=== PATIENT | female | born 1960 | race Hispanic/Latino ===

== ENCOUNTER 2017-11-23 12:25 | Inpatient (IN) | payer OTHER ==
[2017-11-23] MEDS ORDERED: ARTIFICIAL TEARS OPHTH OINT OU PRN (12:36)
[2017-11-23] MEDS ORDERED: VASELINE LIP THERAPY TP PRN (12:36)
[2017-11-23] MEDS ORDERED: NACL 0.9% 1000 ML 1,000 ML IV ONE (12:39)
--- NOTE | 2017-11-23 12:39 | Emergency Department Report ---
HPI - General Time Seen by Provider: 11/23/17 12:30 - HPI HPI: 56-year-old female presents to the emergency department via EMS from home in a cardiac arrest. Last known time normal was around 6 AM but the patient was seen by her roommate prior to presentation unresponsive. EMS got to see her and found her to be cold, pulseless and in asystole. They were unable to intubate her but eventually put a Combitube in. They had difficulty getting an IV established until just prior to presentation and at that time she got 1 dose of epinephrine. Unknown past medical history. The patient presents still pulseless and unresponsive with emesis filling the Combitube. ED Review of Systems ROS: Stated complaint: CARDIAC ARREST Other details as noted in HPI Comment: Unobtainable due to pts medical conditions Physical Exam - Physical Exam Physical Exam: GENERAL: Patient is ill-appearing and unresponsive. HENT: Normocephalic. Atraumatic. Patient has moist mucous membranes. There is a Combitube in place with emesis coming up the tube. EYES: Pupils are fixed and dilated. NECK: Supple. Trachea appears midline. CHEST/LUNGS: There are no spontaneous respirations. HEART/CARDIOVASCULAR: There are no spontaneous heart sounds. ABDOMEN: Abdomen is soft. Obese habitus. SKIN: Skin is cool but dry. NEURO: Unresponsive. Does not withdraw to painful stimuli. Does not follow any commands. MUSCULOSKELETAL: There is no obvious deformity. There is no evidence of acute injury. No palpable femoral or radial pulses. - ABG Interpretation Ph: 7.035 PCO2: 99 PO2: 343 Bicarbonate: 26 Interpretation: respiratory acidosis - Intubation Time Out Performed: No Sedative: none Laryngoscope: other (glydescope) Size: 4 ET Tube Size: 7.5 Tube Secured Depth (cm): 23 Tube Secured Location: lips Tube Placement Confirmation: visualized tube passing t, equal breath sounds bilat, confirmation by capnometr Patient Tolerated Procedure: well Intubation Complications: none ED Medical Decision Making - Lab Data Result diagrams: 11/23/17 12:44 11/23/17 12:44 - EKG Data -: EKG Interpreted by Me EKG shows normal: sinus rhythm, axis, intervals (prolonged QT and QTC intervals) , QRS complexes (right bundle-branch block), ST-T waves Rate: normal - EKG Data When compared to previous EKG there are: previous EKG unavailable Interpretation: other (sinus rhythm, right bundle branch block, prolonged QT and QTC intervals) - Radiology Data Radiology results: report reviewed, image reviewed interpreted by me: Chest x-ray does not show any acute process. There are no pleural effusions, obvious pneumonia and there is no pneumothorax.. ET tube appears in an appropriate position above the barbara. CT HEAD WITHOUT CONTRAST: HISTORY: Unresponsive, cardiac arrest. TECHNIQUE: Sequential 2.5mm CT images. COMPARISON: none. FINDINGS: Cerebral Parenchyma: Within normal limits. Cerebellum: Within normal limits. Brainstem: Within normal limits. Ventricles: Normal. Sella: Normal. Extra-axial spaces: Normal. Basal Cisterns: Normal. Intracranial Hemorrhage: None. Midline Shift: None. Calvarium: Normal. Sinuses: There is fluid throughout all paranasal sinuses which may represent sinusitis or retained secretions. A left nasal tube and endotracheal tube are partially imaged. Mastoid Air Cells: Normal. Visualized Orbits: Normal. IMPRESSION: Cranial CT scan within normal limits. No signs of anoxic injury at this time. An MRI can be obtained if further evaluation is needed. Transcribed By: TTR Dictated By: SOLA CHAVEZ JR, MD Electronically Authenticated By: SOLA CHAVEZ JR, MD Signed Date/Time: 11/23/17 1342 - Medical Decision Making Patient came in as a cardiac arrest. She came in with a Combitube and having received one dose of epinephrine. Patient came in and she was given another dose of epinephrine and one of sodium bicarbonate while we continued ACLS protocol under my supervision. During the first rhythm and pulse check, the patient appeared to have a organized sinus rhythm and was felt to have palpable carotid and radial pulses. At this point the Combitube was replaced with an endotracheal tube. Patient was given some IV fluid resuscitation. Labs were drawn and sent. She has a lactic acidosis of about 16, elevated liver enzymes and an ABG that shows respiratory acidosis. Chest x-ray did not show any acute process. CT of the head has not yet shown any signs of anoxic injury but it may be too early and otherwise did not show any bleed, shift or any acute process. The patient has not required any sedation while on the mechanical ventilation. The patient's brother showed up and was updated about the patient' s presentation and ED course and condition. He says that the patient has a past medical history of COPD but is not oxygen dependent and that she does have some history of alcohol abuse. Patient will be admitted to the ICU and has been accepted for admission by the hospitalist, Dr. Duque. - Differential Diagnosis cardiac arrest, dysrhythmia, aspiration with respiratory failure, overdose Critical Care Time: Yes Critical care time in (mins) excluding proc time.: 45 Critical care attestation.: If time is entered above; I have spent that time in minutes in the direct care of this critically ill patient, excluding procedure time. Critical care time was spent on this patient and doing her initial evaluation, multiple re- evaluations, supervision of ACLS protocol, ordering and interpretation of labs and imaging, discussion with the patient's brother, discussion with the hospitalist. This does not include the time spent doing the intubation procedure. Critical Care Time: 45 minutes ED Disposition Clinical Impression: Cardiac arrest, Elevated lactic acid level, Transaminitis Respiratory failure Qualifiers: Chronicity: acute Respiratory failure complication: unspecified whether with hypoxia or hypercapnia Qualified Code(s): J96.00 - Acute respiratory failure, unspecified whether with hypoxia or hypercapnia Disposition: DC-09 OP ADMIT IP TO THIS HOSP Is pt being admited?: Yes Condition: Critical Referrals: PRIMARY CARE, [Primary Care Provider] - 3-5 Days Time of Disposition: 15:36
[2017-11-23 12:58] LABS: Mean Corpuscular HGB Conc 29 % (30-34); Mean Corpuscular Hemoglobin 33 pg (28-32); Platelet Count 279 K/mm3 (140-440); Red Blood Count 4.12 M/mm3 (3.65-5.03); Red Cell Distribution Width 18.5 % (13.2-15.2)
[2017-11-23] MEDS ORDERED: NACL 0.9% 500 ML IV SCH (13:00)
[2017-11-23 13:10] LABS: INR 1.15 (0.87-1.13)
[2017-11-23 13:11] LABS: Partial Thromboplastin Time 33.9 Sec. (24.2-36.6)
[2017-11-23 13:15] LABS: Hematocrit 46.1 % (30.3-42.9); Hemoglobin 13.4 gm/dl (10.1-14.3); Mean Corpuscular Volume 112 fl (79-97)
[2017-11-23 13:28] LABS: Alanine Aminotransferase 262 units/L (7-56); Albumin 2.9 g/dL (3.9-5); BUN/Creatinine Ratio 15; Blood Urea Nitrogen 19 mg/dL (7-17); Calcium 8.8 mg/dL (8.4-10.2); Hemolysis Index 22
--- NOTE | 2017-11-23 13:44 | XRay Report ---
AP CHEST: HISTORY: Endotracheal tube placement An endotracheal tube terminates 5 cm superior to the barbara. A nasogastric tube is followed to the stomach. Cardiac defibrillator pads are in place. The lungs are clear. Heart and mediastinal structures are within normal limits. No acute process is noted. IMPRESSION: Unremarkable AP chest. Adequate placement of lines and tubes.
[2017-11-23 13:47] LABS: Band Neutrophils # (Manual) 0.4 K/mm3; Basophils % (Manual) 0 % (0.0-1.8); Eosinophils % (Manual) 0 % (0.0-4.3); Total Cells Counted 100
[2017-11-23 13:48] LABS: Anisocytosis 1+; Macrocytosis 1+; Platelet Estimate Consistent w Auto
[2017-11-23 14:01] LABS: Bacteria,Urine 1+ /HPF (Negative); Bilirubin,Urine NEG (Negative); Blood,Urine NEG (Negative); Color,Urine Yellow (Yellow); Hyaline Casts,Urine 11 /LPF; Mucus,Urine 2+ /HPF
[2017-11-23 14:11] LABS: Amphetamine Screen,Urine PRESUMPTIVE NEGATIVE; Cannabinoid Screen,Urine PRESUMPTIVE NEGATIVE; Cocaine Screen,Urine PRESUMPTIVE NEGATIVE; Methadone Screen,Urine PRESUMPTIVE NEGATIVE
[2017-11-23 14:35] LABS: Benzodiazepines Screen,Urine PRESUMPTIVE POSITIVE; Opiate Screen,Urine PRESUMPTIVE POSITIVE
--- NOTE | 2017-11-23 14:48 | Cat Scan Report ---
CT HEAD WITHOUT CONTRAST: HISTORY: Unresponsive, cardiac arrest. TECHNIQUE: Sequential 2.5mm CT images. COMPARISON: none. FINDINGS: Cerebral Parenchyma: Within normal limits. Cerebellum: Within normal limits. Brainstem: Within normal limits. Ventricles: Normal. Sella: Normal. Extra-axial spaces: Normal. Basal Cisterns: Normal. Intracranial Hemorrhage: None. Midline Shift: None. Calvarium: Normal. Sinuses: There is fluid throughout all paranasal sinuses which may represent sinusitis or retained secretions. A left nasal tube and endotracheal tube are partially imaged. Mastoid Air Cells: Normal. Visualized Orbits: Normal. IMPRESSION: Cranial CT scan within normal limits. No signs of anoxic injury at this time. An MRI can be obtained if further evaluation is needed.
--- NOTE | 2017-11-23 15:23 | History and Physical Report ---
History of Present Illness Date of examination: 11/23/17 Medications and Allergies Allergies Allergy/AdvReac Type Severity Reaction Status Date / Time No Known Allergies Allergy Unverified 11/23/17 13:20 Active Meds: Active Medications Heparin Sodium (Porcine) (Heparin) 5,000 unit SUB-Q Q8HR BERTO Hydrophilic Ointment (Vaseline Lip Therapy) 1 applic TP Q2HR PRN PRN Reason: Dry Lips Sodium Chloride (Nacl 0.9% 1000 Ml) 1,000 mls @ 250 mls/hr IV ONCE ONE Stop: 11/23/17 16:38 Last Admin: 11/23/17 13:21 Dose: 250 mls/hr Multi-Ingred Cream/Lotion/Oil/Oint (Artificial Tears Ophth Oint) 1 applic OU Q4HR PRN PRN Reason: Dry Eye(s) Sodium Chloride (Nacl 0.9% 500 Ml) 1 ml IV DIRECT BERTO Exam - Constitutional Vitals: Temp Pulse Resp BP Pulse Ox 91.0 F L 62 30 H 110/68 81 L 11/23/17 13:08 11/23/17 13:45 11/23/17 13:45 11/23/17 13:45 11/23/17 13:39 Results - Labs CBC & Chem 7: 11/23/17 12:44 11/23/17 12:44 Labs: Laboratory Last Values WBC 13.0 K/mm3 (4.5-11.0) H 11/23/17 12:44 RBC 4.12 M/mm3 (3.65-5.03) 11/23/17 12:44 Hgb 13.4 gm/dl (10.1-14.3) 11/23/17 12:44 Hct 46.1 % (30.3-42.9) H 11/23/17 12:44 MCV 112 fl (79-97) H 11/23/17 12:44 MCH 33 pg (28-32) H 11/23/17 12:44 MCHC 29 % (30-34) L 11/23/17 12:44 RDW 18.5 % (13.2-15.2) H 11/23/17 12:44 Plt Count 279 K/mm3 (140-440) 11/23/17 12:44 Add Manual Diff Complete 11/23/17 12:44 Total Counted 100 11/23/17 12:44 Seg Neuts % (Manual) 71.0 % (40.0-70.0) H 11/23/17 12:44 Band Neutrophils % 3.0 % 11/23/17 12:44 Lymphocytes % (Manual) 18.0 % (13.4-35.0) 11/23/17 12:44 Reactive Lymphs % (Man) 0 % 11/23/17 12:44 Monocytes % (Manual) 8.0 % (0.0-7.3) H 11/23/17 12:44 Eosinophils % (Manual) 0 % (0.0-4.3) 11/23/17 12:44 Basophils % (Manual) 0 % (0.0-1.8) 11/23/17 12:44 Metamyelocytes % 0 % 11/23/17 12:44 Myelocytes % 0 % 11/23/17 12:44 Promyelocytes % 0 % 11/23/17 12:44 Blast Cells % 0 % 11/23/17 12:44 Nucleated RBC % 6.0 % (0.0-0.9) H 11/23/17 12:44 Seg Neutrophils # Man 9.2 K/mm3 (1.8-7.7) H 11/23/17 12:44 Band Neutrophils # 0.4 K/mm3 11/23/17 12:44 Lymphocytes # (Manual) 2.3 K/mm3 (1.2-5.4) 11/23/17 12:44 Abs React Lymphs (Man) 0.0 K/mm3 11/23/17 12:44 Monocytes # (Manual) 1.0 K/mm3 (0.0-0.8) H 11/23/17 12:44 Eosinophils # (Manual) 0.0 K/mm3 (0.0-0.4) 11/23/17 12:44 Basophils # (Manual) 0.0 K/mm3 (0.0-0.1) 11/23/17 12:44 Metamyelocytes # 0.0 K/mm3 11/23/17 12:44 Myelocytes # 0.0 K/mm3 11/23/17 12:44 Promyelocytes # 0.0 K/mm3 11/23/17 12:44 Blast Cells # 0.0 K/mm3 11/23/17 12:44 WBC Morphology Not Reportable 11/23/17 12:44 Hypersegmented Neuts Not Reportable 11/23/17 12:44 Hyposegmented Neuts Not Reportable 11/23/17 12:44 Hypogranular Neuts Not Reportable 11/23/17 12:44 Smudge Cells Not Reportable 11/23/17 12:44 Toxic Granulation Not Reportable 11/23/17 12:44 Toxic Vacuolation Not Reportable 11/23/17 12:44 Dohle Bodies Not Reportable 11/23/17 12:44 Pelger-Huet Anomaly Not Reportable 11/23/17 12:44 Erika Rods Not Reportable 11/23/17 12:44 Platelet Estimate Consistent w auto 11/23/17 12:44 Clumped Platelets Not Reportable 11/23/17 12:44 Plt Clumps, EDTA Not Reportable 11/23/17 12:44 Large Platelets Not Reportable 11/23/17 12:44 Giant Platelets Not Reportable 11/23/17 12:44 Platelet Satelliting Not Reportable 11/23/17 12:44 Plt Morphology Comment Not Reportable 11/23/17 12:44 RBC Morphology Not Reportable 11/23/17 12:44 Dimorphic RBCs Not Reportable 11/23/17 12:44 Polychromasia Rare 11/23/17 12:44 Hypochromasia Not Reportable 11/23/17 12:44 Poikilocytosis Not Reportable 11/23/17 12:44 Anisocytosis 1+ 11/23/17 12:44 Microcytosis Not Reportable 11/23/17 12:44 Macrocytosis 1+ 11/23/17 12:44 Spherocytes Not Reportable 11/23/17 12:44 Pappenheimer Bodies Not Reportable 11/23/17 12:44 Sickle Cells Not Reportable 11/23/17 12:44 Target Cells Not Reportable 11/23/17 12:44 Tear Drop Cells Not Reportable 11/23/17 12:44 Ovalocytes Not Reportable 11/23/17 12:44 Helmet Cells Not Reportable 11/23/17 12:44 [place] Bodies Not Reportable 11/23/17 12:44 [place] Rings Not Reportable 11/23/17 12:44 [place] Cells Not Reportable 11/23/17 12:44 Bite Cells Not Reportable 11/23/17 12:44 Crenated Cell Not Reportable 11/23/17 12:44 Elliptocytes Not Reportable 11/23/17 12:44 Acanthocytes (Spur) Not Reportable 11/23/17 12:44 Rouleaux Not Reportable 11/23/17 12:44 Hemoglobin C Crystals Not Reportable 11/23/17 12:44 Schistocytes Not Reportable 11/23/17 12:44 Malaria parasites Not Reportable 11/23/17 12:44 Brett Bodies Not Reportable 11/23/17 12:44 Hem Pathologist Commnt No 11/23/17 12:44 PT 15.3 Sec. (12.2-14.9) H 11/23/17 12:44 INR 1.15 (0.87-1.13) H 11/23/17 12:44 APTT 33.9 Sec. (24.2-36.6) 11/23/17 12:44 POC ABG pH 7.035 (7.35-7.45) L 11/23/17 13:23 POC ABG pCO2 99.1 (35-45) H 11/23/17 13:23 POC ABG pO2 343 (80-105) H 11/23/17 13:23 POC ABG HCO3 26.5 11/23/17 13:23 POC ABG Total CO2 29 11/23/17 13:23 POC ABG O2 Sat 100 11/23/17 13:23 POC ABG Base Excess -4 11/23/17 13:23 FiO2 100 % 11/23/17 13:23 Sodium 143 mmol/L (137-145) 11/23/17 12:44 Potassium 5.4 mmol/L (3.6-5.0) H 11/23/17 12:44 Chloride 85.2 mmol/L (98-107) L 11/23/17 12:44 Carbon Dioxide 26 mmol/L (22-30) 11/23/17 12:44 Anion Gap 37 mmol/L 11/23/17 12:44 BUN 19 mg/dL (7-17) H 11/23/17 12:44 Creatinine 1.3 mg/dL (0.7-1.2) H 11/23/17 12:44 Estimated GFR 42 ml/min 11/23/17 12:44 BUN/Creatinine Ratio 15 % 11/23/17 12:44 Glucose 175 mg/dL (65-100) H 11/23/17 12:44 Lactic Acid 16.10 mmol/L (0.7-2.0) H* 11/23/17 12:44 Calcium 8.8 mg/dL (8.4-10.2) 11/23/17 12:44 Total Bilirubin 0.40 mg/dL (0.1-1.2) 11/23/17 12:44 AST 310 units/L (5-40) H 11/23/17 12:44 ALT 262 units/L (7-56) H 11/23/17 12:44 Alkaline Phosphatase 78 units/L (35-129) 11/23/17 12:44 Troponin T < 0.010 ng/mL (0.00-0.029) 11/23/17 12:44 Total Protein 5.7 g/dL (6.3-8.2) L 11/23/17 12:44 Albumin 2.9 g/dL (3.9-5) L 11/23/17 12:44 Albumin/Globulin Ratio 1.0 % 11/23/17 12:44 Urine Color Yellow (Yellow) 11/23/17 13:39 Urine Turbidity Clear (Clear) 11/23/17 13:39 Urine pH 5.0 (5.0-7.0) 11/23/17 13:39 Ur Specific [place] 1.020 (1.003-1.030) 11/23/17 13:39 Urine Protein 30 mg/dl mg/dL (Negative) 11/23/17 13:39 Urine Glucose (UA) Neg mg/dL (Negative) 11/23/17 13:39 Urine Ketones Neg mg/dL (Negative) 11/23/17 13:39 Urine Blood Neg (Negative) 11/23/17 13:39 Urine Nitrite Neg (Negative) 11/23/17 13:39 Urine Bilirubin Neg (Negative) 11/23/17 13:39 Urine Urobilinogen 2.0 mg/dL (<2.0) 11/23/17 13:39 Ur Leukocyte Esterase Neg (Negative) 11/23/17 13:39 Urine WBC (Auto) 5.0 /HPF (0.0-6.0) 11/23/17 13:39 Urine RBC (Auto) 1.0 /HPF (0.0-6.0) 11/23/17 13:39 U Epithel Cells (Auto) 1.0 /HPF (0-13.0) 11/23/17 13:39 Urine Bacteria (Auto) 1+ /HPF (Negative) 11/23/17 13:39 Hyaline Casts 11 /LPF 11/23/17 13:39 Urine Mucus 2+ /HPF 11/23/17 13:39 Urine Opiates Screen Presumptive positive 11/23/17 13:39 Urine Methadone Screen Presumptive negative 11/23/17 13:39 Ur Barbiturates Screen Presumptive negative 11/23/17 13:39 Ur Phencyclidine Scrn Presumptive negative 11/23/17 13:39 Ur Amphetamines Screen Presumptive negative 11/23/17 13:39 U Benzodiazepines Scrn Presumptive positive 11/23/17 13:39 Urine Cocaine Screen Presumptive negative 11/23/17 13:39 U Marijuana (THC) Screen Presumptive negative 11/23/17 13:39 Drugs of Abuse Note Disclamer 11/23/17 13:39
[2017-11-23] MEDS ORDERED: MORPHINE IV PRN (15:24)
[2017-11-23] MEDS ORDERED: ZOFRAN IV PRN (15:24)
[2017-11-23] MEDS ORDERED: DULCOLAX PR PRN (15:24)
[2017-11-23] MEDS ORDERED: DILAUDID IV PRN (15:24)
[2017-11-23] MEDS ORDERED: ALUM-MAG HYDROX-SIMETH 200-200-20MG/5ML PO PRN (15:24)
[2017-11-23] MEDS ORDERED: MILK OF MAGNESIA PO PRN (15:24)
[2017-11-23] MEDS ORDERED: VANCOMYCIN 1,250 MG in NACL 0.9% 250ML 250 ML IV ONE (16:00)
[2017-11-23] MEDS ORDERED: VANCOMYCIN PHARMACY TO DOSE IV SCH (16:00)
[2017-11-23] MEDS ORDERED: ZOSYN/NS 4.5GM/100ML 4.5 GM/100 ML VIAL IV SCH (16:00)
[2017-11-23] MEDS: DUONEB *Not for PRN Use IH SCH ×2 (16:30→20:48)
[2017-11-23] MEDS: PEPCID IV SCH ×2 (16:49→22:05)
[2017-11-23] MEDS ORDERED: NACL 0.9% 1000 ML 1,000 ML ONE ×2 (16:56→22:49)
[2017-11-23] MEDS: ZOSYN/NS 4.5GM/100ML 4.5 GM/100 ML VIAL IV SCH (17:46)
--- NOTE | 2017-11-23 19:25 | Event Note ---
Date: 11/23/17 See dictated H/P in reports Anoxic Encephalopathy Acute respiratory failure Severe COPD Smokes 1.5 packs a day for 30 years HTN T2DM History obtatined from brother at bedside
[2017-11-23] MEDS ORDERED: CALCIUM GLUCONATE 2,000 MG in NACL 0.9% 100 ML IV ONE (19:26)
[2017-11-23] MEDS ORDERED: DUONEB *Not for PRN Use IH (19:52)
--- NOTE | 2017-11-23 20:28 | History and Physical Report ---
CHIEF COMPLAINT: Unresponsive since morning. HISTORY OF PRESENT ILLNESS: A 56-year-old female with history of severe COPD, hypertension, type 2 diabetes, who lives as a paying guest with another family, was last seen around 6 a.m. doing laundry. Then, after a couple of hours, the patient was found lying on the floor and unconscious and unresponsive. The homeowner initiated CPR, and called EMS. Called 911. When the EMS arrived, the patient was found to be cold, pulseless, and in asystole. They were unable to intubate her, but eventually put her Combitube in. They established an IV and gave one dose of epinephrine. The patient was still pulseless and unresponsive with emesis filling the Combitube. The patient was revived in the ER. The patient was unresponsive, but able to get a pulse and blood pressure. Blood pressure around 110/70. Totally unresponsive. No fever, no chills. History was obtained from the brother who was at bedside. The patient apparently smokes 1-1/2 packs a day for the last 30 years. Lives alone, but lives as a paying guest with another family. Independent, single. History of chronic obstructive pulmonary disease, hypertension, and type 2 diabetes. PAST MEDICAL HISTORY: As mentioned, hypertension, type 2 diabetes, and severe COPD. The patient uses inhalers at home. PAST SURGICAL HISTORY: Unknown. SOCIAL HISTORY: Smokes about 1-1/2 packs a day. No alcohol, no recreational drugs. FAMILY HISTORY: Significant for severe coronary artery disease and hypertension. REVIEW OF SYSTEMS: Could not be done. Apparently, the patient was unresponsive at the scene. As per the brother who talked with her 4 days ago. No flu symptoms. No fever, no chills. Apparently, doing reasonably well in her usual state of health. REVIEW OF SYSTEMS: Could not be done. CURRENT MEDICATIONS: Inhalers. Brother unable to name the inhalers. PHYSICAL EXAMINATION: GENERAL: Middle-aged female, unresponsive twitching at mouth. VITAL SIGNS: Blood pressure is 110/68, temperature is 91, pulse rate is 102, sats were 81%, went up to 96. Initial blood pressure 206/87, but came down to 116/72. HEENT: Pupils sluggish not dilated, reactive sluggishly. ET tube in place. Twitching of the mouth present. NECK: Supple, no lymphadenopathy, no thyromegaly. No jugular venous distention. LUNGS: Scattered rhonchi bilaterally. CARDIOVASCULAR: S1, S2 heard. No gallop, no murmur, no rub. Apical impulse in the left fifth intercostal space and midclavicular line. ABDOMEN: Soft and benign. No hepatosplenomegaly. No guarding, no rigidity. Hernial orifices are normal. EXTREMITIES: Good pedal pulses. No pedal edema. CENTRAL NERVOUS SYSTEM: Intubated. Not sedated, but totally unresponsive. The patient on vent. LABORATORY DATA: Labs significant for white count of 13,000, hemoglobin of 13, and hematocrit of 46, platelet count is 279,000. Protime is 15.3, PTT is 33.9. Lactic acid is 16. Sodium is 143, potassium is 5.4, BUN and creatinine is 19 and 1.3, total protein is 5.7, albumin is 2.9. Urine is negative for infection. Drug screen was positive for benzos and opiates. CT scan was negative for any acute infarction. Chest x-ray showed no infiltrates. Adequate placement of lines and tubes. On the CT scan, there is fluid in paranasal sinuses, which may represent sinusitis. EMERGENCY ROOM COURSE: The patient came in cardiac arrest. ACLS protocol was initiated. Combitube was replaced with endotracheal tube. IV fluid resuscitation done. The patient was revived. EKG, sinus tachycardia. Also, ABG showed a pH of 7.035, pCO2 of 99, pO2 of 343, bicarbonate of 26.5, total CO2 of 29, O2 sats 100%, FiO2 100. ASSESSMENT AND PLAN: 1. Acute respiratory failure with hypoxia and hypercapnia. The patient may have been hypoxic and hypercapnic, which has resulted in loss of consciousness. The patient has been pulseless at the time of arrival. May have suffered anoxic encephalopathy. We will treat the acute respiratory failure with DuoNeb, intravenous Solu-Medrol, intravenous Zosyn, and vancomycin for possible aspiration also. 2. Aspiration pneumonia, high possibility. Because the patient was vomiting through the Combitube. Intravenous Zosyn and intravenous vancomycin. Infectious Disease consult also requested. Sputum cultures to be done. 3. Anoxic encephalopathy, possibility. Because of her prolonged asystole and pulselessness when the EMS arrived. We will reevaluate with MRI and brain flow studies. 4. Hyperkalemia. The patient initiated on calcium gluconate should be sufficient to bring down the potassium from 5.4 to normal. 5. Elevated lactic acid, probably secondary to anoxia and sepsis. The patient already on intravenous antibiotics, Zosyn, and vancomycin. The patient is critically ill. 6. Deep venous thrombosis prophylaxis with Lovenox 40 subcutaneous daily. CRITICAL CARE STATEMENT: The high probability of a clinically significant sudden or life-threatening deterioration of the pulmonary, cardiac, and renal systems required my full and direct attention, intervention, and personal management. The aggregate critical care time was 45 minutes. The time is an addition to time spent performing reported procedures, but include the followin. Data review and interpretation. 2. The patient assessment and monitoring of vital signs. 3. Documentation. 4. Medication orders and management. JOB# [id number] GRISEL/SUSANA
[2017-11-23] MEDS: KEPPRA 750 MG in D5W 100 ML IV SCH (21:54)
[2017-11-23] MEDS: HEPARIN SUB-Q SCH (22:04)
[2017-11-23] MEDS ORDERED: ADRENALIN ONE (22:37)
[2017-11-23] MEDS ORDERED: SODIUM BICARBONATE IV ONE (22:37)
[2017-11-24] MEDS: D5NS 1,000 ML IV SCH ×3 (02:24→13:33)
[2017-11-24] MEDS: ZOSYN/NS 4.5GM/100ML 4.5 GM/100 ML VIAL IV SCH ×3 (02:44→17:43)
[2017-11-24] MEDS: DUONEB *Not for PRN Use IH SCH ×4 (03:00→19:20)
[2017-11-24] MEDS: ATIVAN IV PRN ×3 (03:55→11:30)
[2017-11-24] MEDS: TYLENOL PR PRN ×2 (04:45→15:40)
[2017-11-24 04:52] LABS: Basophils % (Auto) 0.2 % (0.0-1.8); Hematocrit 48.9 % (30.3-42.9); Hemoglobin 15.7 gm/dl (10.1-14.3); Lymphocytes # (Auto) 0.9 K/mm3 (1.2-5.4); Lymphocytes % (Auto) 5.2 % (13.4-35.0); Mean Corpuscular HGB Conc 32 % (30-34); Mean Corpuscular Hemoglobin 32 pg (28-32); Mean Corpuscular Volume 101 fl (79-97); Monocytes # (Auto) 0.9 K/mm3 (0.0-0.8); Monocytes % (Auto) 5.5 % (0.0-7.3); Platelet Count 257 K/mm3 (140-440); Red Blood Count 4.86 M/mm3 (3.65-5.03); Red Cell Distribution Width 16.5 % (13.2-15.2)
[2017-11-24 05:06] LABS: Albumin 2.8 g/dL (3.9-5); Calcium 7.7 mg/dL (8.4-10.2)
[2017-11-24] MEDS: HEPARIN SUB-Q SCH ×3 (06:32→22:35)
--- NOTE | 2017-11-24 08:14 | XRay Report ---
FINAL REPORT EXAM: XR CHEST 1V AP HISTORY: Follow-up respiratory failure. TECHNIQUE: A single frontal portable radiograph of the chest was obtained. No prior studies are available for comparison. FINDINGS: The cardiac silhouette and mediastinum are within normal limits. An endotracheal tube is present with its tip approximately 7 cm above the barbara. A nasogastric tube traverses the thorax into the stomach, though its tip is not included on this exam. There is mild prominence of the pulmonary vasculature and interstitial markings, in keeping with mild pulmonary edema. There are mild patchy infiltrates at the left lung base. There is no pleural effusion or pneumothorax. No significant osseous abnormalities are identified. IMPRESSION: Mild pulmonary edema, with mild patchy infiltrates at the left lung base. Pneumonia is not excluded.
[2017-11-24] MEDS ORDERED: SODIUM BICARBONATE FEEDTUBE PRN (10:15)
[2017-11-24] MEDS ORDERED: SIMPLE SYRUP FEEDTUBE PRN ×2 (10:15)
[2017-11-24] MEDS ORDERED: PANCREAZE DR 10,500 UNIT FEEDTUBE PRN (10:15)
[2017-11-24] MEDS: PEPCID IV SCH ×2 (10:52→22:36)
[2017-11-24] MEDS: KEPPRA 750 MG in D5W 100 ML IV SCH ×2 (11:15→22:10)
--- NOTE | 2017-11-24 11:34 | Progress Note ---
History Interval history: S/p cardiopulmonary arrest. Etiology likely secondary to respiratory arrest. Pt. with probable anoxic encephalopathy as well. Sepsis. Pt. meets criteria with tachycardia, leukocytosis, elevated lactate and prob dx of ? aspiration pneumonia. Cont. IV abx, f/u cx results. Lactate 16! on admission Anoxic encephalopathy. Neuro consult. Check EEG. Acute hypercapneic resp failure. Pulm consultation pending. Cont. vent per Pulm. ARF. Etiology prob sec to TAMARA from sepsis/ATN. Renal consult Elevated LFTs. Etiology prob secondary to ischemic hepatitis from sepsis/ATN. Check hepatitis panel. Consider GI consult Poor prognosis The high probability of a clinically significant, sudden or life threatening deterioration of the [cardiac, pulmonary, neuro and GI] system(s) required my full and direct attention, intervention and personal management. The aggregate critical care time was [34] minutes. This time is in addition to time spent performing reported procedures but includes the following: [x] Data Review and interpretation [x] Patient assessment and monitoring of vital signs [x] Documentation [x] Medication orders and management Hospitalist Physical - Constitutional Vitals: Temp Pulse Resp BP Pulse Ox 103 F H 95 H 21 101/55 92 11/24/17 08:00 11/24/17 09:15 11/24/17 09:15 11/24/17 09:15 11/24/17 09:15 Results - Labs CBC & Chem 7: 11/24/17 04:03 11/24/17 04:03 Labs: Laboratory Last Values WBC 16.8 K/mm3 (4.5-11.0) H 11/24/17 04:03 RBC 4.86 M/mm3 (3.65-5.03) 11/24/17 04:03 Hgb 15.7 gm/dl (10.1-14.3) H 11/24/17 04:03 Hct 48.9 % (30.3-42.9) H 11/24/17 04:03 MCV 101 fl (79-97) H 11/24/17 04:03 MCH 32 pg (28-32) 11/24/17 04:03 MCHC 32 % (30-34) 11/24/17 04:03 RDW 16.5 % (13.2-15.2) H 11/24/17 04:03 Plt Count 257 K/mm3 (140-440) 11/24/17 04:03 Lymph % (Auto) 5.2 % (13.4-35.0) L 11/24/17 04:03 [place] % (Auto) 5.5 % (0.0-7.3) 11/24/17 04:03 Eos % (Auto) 0.0 % (0.0-4.3) 11/24/17 04:03 Baso % (Auto) 0.2 % (0.0-1.8) 11/24/17 04:03 Lymph # 0.9 K/mm3 (1.2-5.4) L 11/24/17 04:03 [place] # 0.9 K/mm3 (0.0-0.8) H 11/24/17 04:03 Eos # 0.0 K/mm3 (0.0-0.4) 11/24/17 04:03 Baso # 0.0 K/mm3 (0.0-0.1) 11/24/17 04:03 Add Manual Diff Complete 11/23/17 12:44 Total Counted 100 11/23/17 12:44 Seg Neutrophils % 89.1 % (40.0-70.0) H 11/24/17 04:03 Seg Neuts % (Manual) 71.0 % (40.0-70.0) H 11/23/17 12:44 Band Neutrophils % 3.0 % 11/23/17 12:44 Lymphocytes % (Manual) 18.0 % (13.4-35.0) 11/23/17 12:44 Reactive Lymphs % (Man) 0 % 11/23/17 12:44 Monocytes % (Manual) 8.0 % (0.0-7.3) H 11/23/17 12:44 Eosinophils % (Manual) 0 % (0.0-4.3) 11/23/17 12:44 Basophils % (Manual) 0 % (0.0-1.8) 11/23/17 12:44 Metamyelocytes % 0 % 11/23/17 12:44 Myelocytes % 0 % 11/23/17 12:44 Promyelocytes % 0 % 11/23/17 12:44 Blast Cells % 0 % 11/23/17 12:44 Nucleated RBC % 6.0 % (0.0-0.9) H 11/23/17 12:44 Seg Neutrophils # 14.9 K/mm3 (1.8-7.7) H 11/24/17 04:03 Seg Neutrophils # Man 9.2 K/mm3 (1.8-7.7) H 11/23/17 12:44 Band Neutrophils # 0.4 K/mm3 11/23/17 12:44 Lymphocytes # (Manual) 2.3 K/mm3 (1.2-5.4) 11/23/17 12:44 Abs React Lymphs (Man) 0.0 K/mm3 11/23/17 12:44 Monocytes # (Manual) 1.0 K/mm3 (0.0-0.8) H 11/23/17 12:44 Eosinophils # (Manual) 0.0 K/mm3 (0.0-0.4) 11/23/17 12:44 Basophils # (Manual) 0.0 K/mm3 (0.0-0.1) 11/23/17 12:44 Metamyelocytes # 0.0 K/mm3 11/23/17 12:44 Myelocytes # 0.0 K/mm3 11/23/17 12:44 Promyelocytes # 0.0 K/mm3 11/23/17 12:44 Blast Cells # 0.0 K/mm3 11/23/17 12:44 WBC Morphology Not Reportable 11/23/17 12:44 Hypersegmented Neuts Not Reportable 11/23/17 12:44 Hyposegmented Neuts Not Reportable 11/23/17 12:44 Hypogranular Neuts Not Reportable 11/23/17 12:44 Smudge Cells Not Reportable 11/23/17 12:44 Toxic Granulation Not Reportable 11/23/17 12:44 Toxic Vacuolation Not Reportable 11/23/17 12:44 Dohle Bodies Not Reportable 11/23/17 12:44 Pelger-Huet Anomaly Not Reportable 11/23/17 12:44 Erika Rods Not Reportable 11/23/17 12:44 Platelet Estimate Consistent w auto 11/23/17 12:44 Clumped Platelets Not Reportable 11/23/17 12:44 Plt Clumps, EDTA Not Reportable 11/23/17 12:44 Large Platelets Not Reportable 11/23/17 12:44 Giant Platelets Not Reportable 11/23/17 12:44 Platelet Satelliting Not Reportable 11/23/17 12:44 Plt Morphology Comment Not Reportable 11/23/17 12:44 RBC Morphology Not Reportable 11/23/17 12:44 Dimorphic RBCs Not Reportable 11/23/17 12:44 Polychromasia Rare 11/23/17 12:44 Hypochromasia Not Reportable 11/23/17 12:44 Poikilocytosis Not Reportable 11/23/17 12:44 Anisocytosis 1+ 11/23/17 12:44 Microcytosis Not Reportable 11/23/17 12:44 Macrocytosis 1+ 11/23/17 12:44 Spherocytes Not Reportable 11/23/17 12:44 Pappenheimer Bodies Not Reportable 11/23/17 12:44 Sickle Cells Not Reportable 11/23/17 12:44 Target Cells Not Reportable 11/23/17 12:44 Tear Drop Cells Not Reportable 11/23/17 12:44 Ovalocytes Not Reportable 11/23/17 12:44 Helmet Cells Not Reportable 11/23/17 12:44 Mart-Onset Bodies Not Reportable 11/23/17 12:44 [place] Rings Not Reportable 11/23/17 12:44 [place] Cells Not Reportable 11/23/17 12:44 Bite Cells Not Reportable 11/23/17 12:44 Crenated Cell Not Reportable 11/23/17 12:44 Elliptocytes Not Reportable 11/23/17 12:44 Acanthocytes (Spur) Not Reportable 11/23/17 12:44 Rouleaux Not Reportable 11/23/17 12:44 Hemoglobin C Crystals Not Reportable 11/23/17 12:44 Schistocytes Not Reportable 11/23/17 12:44 Malaria parasites Not Reportable 11/23/17 12:44 Brett Bodies Not Reportable 11/23/17 12:44 Hem Pathologist Commnt No 11/23/17 12:44 PT 15.3 Sec. (12.2-14.9) H 11/23/17 12:44 INR 1.15 (0.87-1.13) H 11/23/17 12:44 APTT 33.9 Sec. (24.2-36.6) 11/23/17 12:44 POC ABG pH 7.469 (7.35-7.45) H 11/24/17 05:55 POC ABG pCO2 52.3 (35-45) H 11/24/17 05:55 POC ABG pO2 69 (80-105) L 11/24/17 05:55 POC ABG HCO3 38.0 11/24/17 05:55 POC ABG Total CO2 40 11/24/17 05:55 POC ABG O2 Sat 94 11/24/17 05:55 POC ABG Base Excess 14 11/24/17 05:55 FiO2 50 % 11/24/17 05:55 Sodium 144 mmol/L (137-145) 11/24/17 04:03 Potassium 4.3 mmol/L (3.6-5.0) D 11/24/17 04:03 Chloride 96.0 mmol/L (98-107) L 11/24/17 04:03 Carbon Dioxide 33 mmol/L (22-30) H D 11/24/17 04:03 Anion Gap 19 mmol/L 11/24/17 04:03 BUN 28 mg/dL (7-17) H 11/24/17 04:03 Creatinine 1.5 mg/dL (0.7-1.2) H 11/24/17 04:03 Estimated GFR 36 ml/min 11/24/17 04:03 BUN/Creatinine Ratio 19 % 11/24/17 04:03 Glucose 108 mg/dL (65-100) H 11/24/17 04:03 Lactic Acid 16.10 mmol/L (0.7-2.0) H* 11/23/17 12:44 Calcium 7.7 mg/dL (8.4-10.2) L 11/24/17 04:03 Total Bilirubin 0.50 mg/dL (0.1-1.2) 11/24/17 04:03 AST 1091 units/L (5-40) H 11/24/17 04:03 ALT 986 units/L (7-56) H 11/24/17 04:03 Alkaline Phosphatase 75 units/L (35-129) 11/24/17 04:03 Troponin T < 0.010 ng/mL (0.00-0.029) 11/23/17 12:44 Total Protein 5.0 g/dL (6.3-8.2) L 11/24/17 04:03 Albumin 2.8 g/dL (3.9-5) L 11/24/17 04:03 Albumin/Globulin Ratio 1.3 % 11/24/17 04:03 Urine Color Yellow (Yellow) 11/23/17 13:39 Urine Turbidity Clear (Clear) 11/23/17 13:39 Urine pH 5.0 (5.0-7.0) 11/23/17 13:39 Ur Specific [place] 1.020 (1.003-1.030) 11/23/17 13:39 Urine Protein 30 mg/dl mg/dL (Negative) 11/23/17 13:39 Urine Glucose (UA) Neg mg/dL (Negative) 11/23/17 13:39 Urine Ketones Neg mg/dL (Negative) 11/23/17 13:39 Urine Blood Neg (Negative) 11/23/17 13:39 Urine Nitrite Neg (Negative) 11/23/17 13:39 Urine Bilirubin Neg (Negative) 11/23/17 13:39 Urine Urobilinogen 2.0 mg/dL (<2.0) 11/23/17 13:39 Ur Leukocyte Esterase Neg (Negative) 11/23/17 13:39 Urine WBC (Auto) 5.0 /HPF (0.0-6.0) 11/23/17 13:39 Urine RBC (Auto) 1.0 /HPF (0.0-6.0) 11/23/17 13:39 U Epithel Cells (Auto) 1.0 /HPF (0-13.0) 11/23/17 13:39 Urine Bacteria (Auto) 1+ /HPF (Negative) 11/23/17 13:39 Hyaline Casts 11 /LPF 11/23/17 13:39 Urine Mucus 2+ /HPF 11/23/17 13:39 Salicylates < 0.3 mg/dL (2.8-20.0) L 11/23/17 15:54 Urine Opiates Screen Presumptive positive 11/23/17 13:39 Urine Methadone Screen Presumptive negative 11/23/17 13:39 Acetaminophen < 15.0 ug/mL (10.0-30.0) 11/23/17 15:54 Ur Barbiturates Screen Presumptive negative 11/23/17 13:39 Ur Phencyclidine Scrn Presumptive negative 02/07/18 13:39 Ur Amphetamines Screen Presumptive negative 11/23/17 13:39 U Benzodiazepines Scrn Presumptive positive 11/23/17 13:39 Urine Cocaine Screen Presumptive negative 11/23/17 13:39 U Marijuana (THC) Screen Presumptive negative 11/23/17 13:39 Drugs of Abuse Note Disclamer 11/23/17 13:39
--- NOTE | 2017-11-24 12:04 | Consultation ---
History of Present Illness Consult date: 11/24/17 Requesting physician: GURDEEP SOLIS Reason for consult: other (S/P Cardiac Arrest) History of present illness: PULMONARY/CCM CONSULT NOTE (Full dictation # [id number]) Please see dictated notes for full details Medications and Allergies Allergies Allergy/AdvReac Type Severity Reaction Status Date / Time No Known Allergies Allergy Unverified 11/23/17 13:20 Home Medications Medication Instructions Recorded Confirmed Last Taken Type Unobtainable 11/23/17 11/23/17 Unknown History Active Meds: Active Medications Acetaminophen (Tylenol) [address] Q6H PRN PRN Reason: Pain, Mild (1-3) Last Admin: 11/24/17 04:45 Dose: 650 mg Al Hydrox/Mg Hydrox/Simethicone (Alum-Mag Hydrox-Simeth [phone]/5ml) 30 ml PO Q4H PRN PRN Reason: Indigestion Albuterol/Ipratropium (Duoneb *Not For Prn Use*) 1 ampul IH Q6HRT [facility] Last Admin: 11/24/17 08:03 Dose: 1 ampul Lipase/Protease/Amylase (Pancreaze Dr 10,500 Unit) 1 each FEEDTUBE PRN PRN PRN Reason: For Clogged Feeding Tube Bisacodyl (Dulcolax) [address] QDAY PRN PRN Reason: constipation unrelieved by MOM Famotidine (Pepcid) 20 mg IV BID [facility] Last Admin: 11/24/17 10:52 Dose: 20 mg Heparin Sodium (Porcine) (Heparin) 5,000 unit SUB-Q Q8HR [facility] Last Admin: 11/24/17 06:32 Dose: Not Given Hydromorphone HCl (Dilaudid) 1 mg IV Q3H PRN PRN Reason: Pain , Severe (7-10) Last Admin: 11/24/17 02:23 Dose: 1 mg Hydrophilic Ointment (Vaseline Lip Therapy) 1 applic TP Q2HR PRN PRN Reason: Dry Lips Dextrose/Sodium Chloride (D5ns) 1,000 mls @ 100 mls/hr IV DIRECT [facility] Last Admin: 11/24/17 02:24 Dose: 100 mls/hr Piperacillin Sod/Tazobactam Sod (Zosyn/Ns 4.5gm/100ml) 4.5 gm in 100 mls @ 200 mls/hr IV Q8H [facility] PRN Reason: Protocol Last Admin: 11/24/17 10:52 Dose: 200 mls/hr Vancomycin HCl (Vancomycin/Ns 1 Gm/250 Ml) 1 gm in 250 mls @ 166.667 mls/hr IV Q24H [facility] Levetiracetam 750 mg/ Dextrose 107.5 mls @ 400 mls/hr IV Q12HR [facility] Last Admin: 11/23/17 21:54 Dose: 400 mls/hr Lorazepam (Ativan) 1 mg IV Q1H PRN PRN Reason: Seizures Last Admin: 11/24/17 06:31 Dose: 1 mg Magnesium Hydroxide (Milk Of Magnesia) 30 ml PO Q4H PRN PRN Reason: Constipation Morphine Sulfate (Morphine) 2 mg IV Q4H PRN PRN Reason: Pain, Moderate (4-6) Multi-Ingred Cream/Lotion/Oil/Oint (Artificial Tears Ophth Oint) 1 applic OU Q4HR PRN PRN Reason: Dry Eye(s) Ondansetron HCl (Zofran) 4 mg IV Q3H PRN PRN Reason: N/V unrelieved by Reglan Simple Syrup (Simple Syrup) 15 ml FEEDTUBE PRN PRN PRN Reason: Hypoglycemia Simple Syrup (Simple Syrup) 30 ml FEEDTUBE PRN PRN PRN Reason: Hypoglycemia Sodium Bicarbonate (Sodium Bicarbonate) 325 mg FEEDTUBE PRN PRN PRN Reason: For Clogged Feeding Tube Sodium Chloride (Nacl 0.9% 500 Ml) 1 ml IV DIRECT [facility] Vancomycin HCl (Vancomycin Pharmacy To Dose) 1 each IV PKCONSULT [facility] PRN Reason: Protocol Physical Examination Vital signs: Vital Signs Pulse Pulse Ox 100 H 95 11/23/17 12:25 11/23/17 12:25 Results - Laboratory Findings CBC and BMP: 11/24/17 04:03 11/24/17 04:03 ABG POC ABG pH 7.469 (7.35-7.45) H 11/24/17 05:55 POC ABG pCO2 52.3 (35-45) H 11/24/17 05:55 POC ABG pO2 69 (80-105) L 11/24/17 05:55 POC ABG HCO3 38.0 11/24/17 05:55 POC ABG Total CO2 40 11/24/17 05:55 POC ABG O2 Sat 94 11/24/17 05:55 PT/INR, D-dimer PT 15.3 Sec. (12.2-14.9) H 11/23/17 12:44 INR 1.15 (0.87-1.13) H 11/23/17 12:44 Abnormal lab findings: Abnormal Labs 11/23/17 11/23/17 11/23/17 12:44 12:44 12:44 WBC 13.0 H Hgb Hct 46.1 H MCV 112 H MCH 33 H MCHC 29 L RDW 18.5 H Lymph % (Auto) Lymph # [place] # Seg Neutrophils % Seg Neuts % (Manual) 71.0 H Monocytes % (Manual) 8.0 H Nucleated RBC % 6.0 H Seg Neutrophils # Seg Neutrophils # Man 9.2 H Monocytes # (Manual) 1.0 H PT 15.3 H INR 1.15 H POC ABG pH POC ABG pCO2 POC ABG pO2 Potassium 5.4 H Chloride 85.2 L Carbon Dioxide BUN 19 H Creatinine 1.3 H Glucose 175 H Lactic Acid Calcium AST 310 H ALT 262 H Total Protein 5.7 L Albumin 2.9 L Salicylates 11/23/17 11/23/17 11/23/17 12:44 13:23 15:54 WBC Hgb Hct MCV MCH MCHC RDW Lymph % (Auto) Lymph # [place] # Seg Neutrophils % Seg Neuts % (Manual) Monocytes % (Manual) Nucleated RBC % Seg Neutrophils # Seg Neutrophils # Man Monocytes # (Manual) PT INR POC ABG pH 7.035 L POC ABG pCO2 99.1 H POC ABG pO2 343 H Potassium Chloride Carbon Dioxide BUN Creatinine Glucose Lactic Acid 16.10 H* Calcium AST ALT Total Protein Albumin Salicylates < 0.3 L 11/23/17 11/24/17 11/24/17 16:42 04:03 04:03 WBC 16.8 H Hgb 15.7 H Hct 48.9 H MCV 101 H MCH MCHC RDW 16.5 H Lymph % (Auto) 5.2 L Lymph # 0.9 L [place] # 0.9 H Seg Neutrophils % 89.1 H Seg Neuts % (Manual) Monocytes % (Manual) Nucleated RBC % Seg Neutrophils # 14.9 H Seg Neutrophils # Man Monocytes # (Manual) PT INR POC ABG pH POC ABG pCO2 POC ABG pO2 55 L Potassium Chloride 96.0 L Carbon Dioxide 33 H D BUN 28 H Creatinine 1.5 H Glucose 108 H Lactic Acid Calcium 7.7 L AST 1091 H ALT 986 H Total Protein 5.0 L Albumin 2.8 L Salicylates 11/24/17 05:55 WBC Hgb Hct MCV MCH MCHC RDW Lymph % (Auto) Lymph # [place] # Seg Neutrophils % Seg Neuts % (Manual) Monocytes % (Manual) Nucleated RBC % Seg Neutrophils # Seg Neutrophils # Man Monocytes # (Manual) PT INR POC ABG pH 7.469 H POC ABG pCO2 52.3 H POC ABG pO2 69 L Potassium Chloride Carbon Dioxide BUN Creatinine Glucose Lactic Acid Calcium AST ALT Total Protein Albumin Salicylates
--- NOTE | 2017-11-24 13:32 | Consultation ---
History of Present Illness Consult date: 11/24/17 Requesting physician: HARVEY BERNAL Reason for Consult: unresponsive, twitching Chief complaint: unresponsive following cardiorespiratory arrest, twitching of face History of present illness: This 56-year-old right handed (per son) white female was admitted yesterday having last been normal 6 AM yesterday morning according to her roommate (per ER notes here). Her son states she may have been down for several hours before found again. EMS found her to be cold, pulseless and in asystole area they were unable to intubate her but eventually got accompanied to be in. They have difficulty getting an IV established until just prior to arriving at the ER and at that time she got 1 dose of epinephrine though was still pulseless and unresponsive at the ER with emesis filling the Combitube. Pupils were stated to be fixed and dilated with no withdrawal to pain. She was then intubated. She was given 1 dose of epinephrine and 1 of sodium bicarbonate during ACLS protocol. She had lactic acidosis of about 16, elevated liver enzymes and ABG showing respiratory acidosis. CT scan is read as normal but to me may be showing posterior effaced sulci. She was started on Keppra 750 mg IV every 12. She was noted to have some history of COPD and alcohol abuse. Her son has a bag of her medications from home including multiple inhalers (Combivent, Advair , Ventolin) as well as Mobic, Robitussin-DM generic syrup, and ipratropium dose apparently for nebulizer Past History Past Medical History: COPD Social history: single, smoking (both electronic cigarettes and some tobacco per her son is likely), alcohol abuse (unknown but has a history of this per her son), IV drug use (her son thinks this is correct in the distant past), other (occasional use of marijuana still her son thinks) Family history: hypertension (maternal side according to her son), other ( unknown if strokes or epilepsy) Medications and Allergies Allergies Allergy/AdvReac Type Severity Reaction Status Date / Time No Known Allergies Allergy Unverified 11/23/17 13:20 Home Medications Medication Instructions Recorded Confirmed Last Taken Type Unobtainable 11/23/17 11/23/17 Unknown History Active Meds: Active Medications Acetaminophen (Tylenol) 650 mg LA Q6H PRN PRN Reason: Pain, Mild (1-3) Last Admin: 11/24/17 04:45 Dose: 650 mg Al Hydrox/Mg Hydrox/Simethicone (Alum-Mag Hydrox-Simeth [phone]/5ml) 30 ml PO Q4H PRN PRN Reason: Indigestion Albuterol/Ipratropium (Duoneb *Not For Prn Use*) 1 ampul IH Q6HRT [facility] Last Admin: 11/24/17 08:03 Dose: 1 ampul Lipase/Protease/Amylase (Pancreaze Dr 10,500 Unit) 1 each FEEDTUBE PRN PRN PRN Reason: For Clogged Feeding Tube Bisacodyl (Dulcolax) 10 mg LA QDAY PRN PRN Reason: constipation unrelieved by MOM Famotidine (Pepcid) 20 mg IV BID [facility] Last Admin: 11/24/17 10:52 Dose: 20 mg Heparin Sodium (Porcine) (Heparin) 5,000 unit SUB-Q Q8HR [facility] Last Admin: 11/24/17 06:32 Dose: Not Given Hydromorphone HCl (Dilaudid) 1 mg IV Q3H PRN PRN Reason: Pain , Severe (7-10) Last Admin: 11/24/17 02:23 Dose: 1 mg Hydrophilic Ointment (Vaseline Lip Therapy) 1 applic TP Q2HR PRN PRN Reason: Dry Lips Dextrose/Sodium Chloride (D5ns) 1,000 mls @ 100 mls/hr IV DIRECT [facility] Last Admin: 11/24/17 13:07 Dose: 100 mls/hr Piperacillin Sod/Tazobactam Sod (Zosyn/Ns 4.5gm/100ml) 4.5 gm in 100 mls @ 200 mls/hr IV Q8H [facility] PRN Reason: Protocol Last Admin: 11/24/17 10:52 Dose: 200 mls/hr Vancomycin HCl (Vancomycin/Ns 1 Gm/250 Ml) 1 gm in 250 mls @ 166.667 mls/hr IV Q24H [facility] Levetiracetam 750 mg/ Dextrose 107.5 mls @ 400 mls/hr IV Q12HR [facility] Last Admin: 11/24/17 11:15 Dose: 400 mls/hr Lorazepam (Ativan) 1 mg IV Q1H PRN PRN Reason: Seizures Last Admin: 11/24/17 06:31 Dose: 1 mg Magnesium Hydroxide (Milk Of Magnesia) 30 ml PO Q4H PRN PRN Reason: Constipation Morphine Sulfate (Morphine) 2 mg IV Q4H PRN PRN Reason: Pain, Moderate (4-6) Multi-Ingred Cream/Lotion/Oil/Oint (Artificial Tears Ophth Oint) 1 applic OU Q4HR PRN PRN Reason: Dry Eye(s) Ondansetron HCl (Zofran) 4 mg IV Q3H PRN PRN Reason: N/V unrelieved by Reglan Simple Syrup (Simple Syrup) 15 ml FEEDTUBE PRN PRN PRN Reason: Hypoglycemia Simple Syrup (Simple Syrup) 30 ml FEEDTUBE PRN PRN PRN Reason: Hypoglycemia Sodium Bicarbonate (Sodium Bicarbonate) 325 mg FEEDTUBE PRN PRN PRN Reason: For Clogged Feeding Tube Sodium Chloride (Nacl 0.9% 500 Ml) 1 ml IV DIRECT [facility] Vancomycin HCl (Vancomycin Pharmacy To Dose) 1 each IV PKCONSULT [facility] PRN Reason: Protocol Review of Systems All systems: negative (unknown but her son says she takes BC powders he thinks for headaches) Physical Examination - Vital Signs Vital Signs: Vital Signs Pulse Pulse Ox 100 H 95 11/23/17 12:25 11/23/17 12:25 - Physical Exam Narrative exam: General Appearance: well developed well nourished (per BMI) late 50s white female, intubated orally with some myoclonic jerks in her chin on the left and truncal jerks intermittently as well. HEENT: atraumatic, normocephalic; no bruits, 2+ Aj without soreness or induration or enlargement, sclerae nonicteric. Oropharynx pink and moist. Neck: supple, no bruits. Heart: no murmur or extra sounds. Extremities: no clubbing, cyanosis or edema. No posterior tibial or dorsalis pedis pulses palpable on either side. Neurologic Exam: Mental Status: No eye-opening or other response to voice or pain or to commands. Cranial Nerves: No blink to visual threat, cannot see discs due to small pupils and possibly cataracts, PERRL 1 mm slight reaction, negative doll's eyes and lateral deviation of right (skew), no response to pinprick, no corneal reflexes , no grimace to pinprick or supraorbital pressure or TMJ pressure, Grey cannot be assessed, absent gags to oral suctioning and absent cough response to tracheal suctioning, shoulder shrug be done, tongue cannot be evaluated. Cerebellar: Cannot be assessed. Sensory: No response to pinprick or nailbed pressure Motor Exam Upper Extremities: No response to supraorbital pressure or TMJ pressure or chest or neck skin pinch or pinprick or nailbed pressure or palmar rub. No atrophy or fasciculations are noted visually. Motor Exam Lower Extremities: No response to supraorbital pressure or TMJ pressure or chest or neck skin pinch or pinprick or nailbed pressure or plantar rub. No atrophy or fasciculations are noted visually. Reflexes: Palmomental and snout are negative but jaw jerk attempt elicits clonus. Triceps, biceps and brachioradialis are 0 bilaterally. Zain's is negative bilaterally. Knee jerks and ankle jerks are 0 bilaterally without clonus. Toes are downgoing right and mute left to Babinski testing. Results - Laboratory Findings CBC and BMP: 11/24/17 04:03 11/24/17 04:03 Abnormal Lab Findings: Abnormal Labs 11/23/17 11/23/17 11/23/17 12:44 12:44 12:44 WBC 13.0 H Hgb Hct 46.1 H MCV 112 H MCH 33 H MCHC 29 L RDW 18.5 H Lymph % (Auto) Lymph # [place] # Seg Neutrophils % Seg Neuts % (Manual) 71.0 H Monocytes % (Manual) 8.0 H Nucleated RBC % 6.0 H Seg Neutrophils # Seg Neutrophils # Man 9.2 H Monocytes # (Manual) 1.0 H PT 15.3 H INR 1.15 H POC ABG pH POC ABG pCO2 POC ABG pO2 Potassium 5.4 H Chloride 85.2 L Carbon Dioxide BUN 19 H Creatinine 1.3 H Glucose 175 H Lactic Acid Calcium AST 310 H ALT 262 H Total Protein 5.7 L Albumin 2.9 L Salicylates 11/23/17 11/23/17 11/23/17 12:44 13:23 15:54 WBC Hgb Hct MCV MCH MCHC RDW Lymph % (Auto) Lymph # [place] # Seg Neutrophils % Seg Neuts % (Manual) Monocytes % (Manual) Nucleated RBC % Seg Neutrophils # Seg Neutrophils # Man Monocytes # (Manual) PT INR POC ABG pH 7.035 L POC ABG pCO2 99.1 H POC ABG pO2 343 H Potassium Chloride Carbon Dioxide BUN Creatinine Glucose Lactic Acid 16.10 H* Calcium AST ALT Total Protein Albumin Salicylates < 0.3 L 11/23/17 11/24/17 11/24/17 16:42 04:03 04:03 WBC 16.8 H Hgb 15.7 H Hct 48.9 H MCV 101 H MCH MCHC RDW 16.5 H Lymph % (Auto) 5.2 L Lymph # 0.9 L [place] # 0.9 H Seg Neutrophils % 89.1 H Seg Neuts % (Manual) Monocytes % (Manual) Nucleated RBC % Seg Neutrophils # 14.9 H Seg Neutrophils # Man Monocytes # (Manual) PT INR POC ABG pH POC ABG pCO2 POC ABG pO2 55 L Potassium Chloride 96.0 L Carbon Dioxide 33 H D BUN 28 H Creatinine 1.5 H Glucose 108 H Lactic Acid Calcium 7.7 L AST 1091 H ALT 986 H Total Protein 5.0 L Albumin 2.8 L Salicylates 11/24/17 05:55 WBC Hgb Hct MCV MCH MCHC RDW Lymph % (Auto) Lymph # [place] # Seg Neutrophils % Seg Neuts % (Manual) Monocytes % (Manual) Nucleated RBC % Seg Neutrophils # Seg Neutrophils # Man Monocytes # (Manual) PT INR POC ABG pH 7.469 H POC ABG pCO2 52.3 H POC ABG pO2 69 L Potassium Chloride Carbon Dioxide BUN Creatinine Glucose Lactic Acid Calcium AST ALT Total Protein Albumin Salicylates Assessment and Plan Impression: 1. Hypoxic ischemic encephalopathy 2. Myoclonic jerks Plan: 1. EEG. 2. I explained to her son that at least some of her motor cortex seems to be working since she is having myoclonus due to her hypoxic event. I explained this can be difficult to treat but that we are treating it with the Keppra. I told him most of her brainstem is not working but her pupils are reacting a little bit. I explained possibly doing ice water calorics later but no need to do that as long as her pupils are reacting since that shows her brainstem is at least partially working. 3. I will give an extra bolus of Keppra 500 mg IV one time. Based on creatinine clearance of 41, her maintenance dose is appropriate. 4. Sometimes myoclonus goes away as brain occurs. I explained we might do an MRI to look for swelling, depending on results of EEG. I discussed the likely need to decide about withdrawing support depending on her responses tomorrow. 35 minutes critical care time spent today. Thank you for an interesting consultation on this unfortunate mid 50s lady.
[2017-11-24] MEDS ORDERED: KEPPRA 500 MG in D5W 100 ML IV ONE (15:00)
[2017-11-24] MEDS: DIPRIVAN 10 MG/ML 1,000 MG/100 ML BOTTLE IV SCH (15:13)
[2017-11-24] MEDS ORDERED: VANCOMYCIN/NS 1 GM/250 ML 1 GM/250 ML BAG IV SCH (16:00)
[2017-11-24] MEDS: VANCOMYCIN/0.45 NS 1 GM/250 ML 1 GM/250 ML BAG IV SCH (17:43)
[2017-11-25] MEDS: ZOSYN/NS 4.5GM/100ML 4.5 GM/100 ML VIAL IV SCH ×3 (01:10→20:22)
[2017-11-25] MEDS: D5NS 1,000 ML IV SCH ×2 (01:11→12:53)
--- NOTE | 2017-11-25 01:14 | Consultation ---
CONSULTING PHYSICIAN: Dr. Duque. REASON FOR CONSULTATION: Acute hypoxemic respiratory failure, status post cardiac arrest. CHIEF COMPLAINT AND HISTORY OF PRESENT ILLNESS: The patient is a 56-year-old female with past medical history significant amongst other things for a history of alcohol abuse, who apparently was last seen around 6:00 a.m. on the day of presentation. She was seen by her roommate. Emergency medical services, when they were called a few hours later, found to have a cold pulseless and asystole. They were unable to intubate her. A combitube was placed. She was brought into the Emergency Room. In the ER, the patient was still pulseless, unresponsive with emesis feeling. Covering the combitube, resuscitative efforts were continued. They were able to get a pulse back. She was endotracheally intubated, required vasopressor support and was ultimately admitted to the Intensive Care Unit where I stopped by to see her. Of note, she also has a diagnosis of COPD, but not on home oxygen. When I stopped by to see her, she was lying in bed. She was having intermittent myoclonic type jerks, not following commands. Not on any sedation at that time. With regards to her tobacco use/abuse history, the records indicate that she does have a 30+ pack year tobacco smoking history. That really is as much of the history of presentation as I have. PAST MEDICAL HISTORY: Again, significant for a diagnosis of chronic obstructive lung disease. History of hypertension, history of type 2 diabetes. She is also obese, and a questionable history of alcohol abuse. PAST SURGICAL HISTORY: Unknown. MEDICATIONS: She was on at the time I stopped by to see her, according to the medication administration record included the following: DuoNeb treatments nebulized q. 6 hours, Pepcid 20 mg IV b.i.d., heparin 5000 units subQ q. 8 hours, Keppra 750 mg IV q. 12 hours, Ativan 1 mg IV q. 1 hours p.r.n. seizures, Zofran 4 mg IV q. 3 hours p.r.n. nausea and vomiting, Zosyn 4.5 grams IV q. 8 hours, vancomycin 1 gram IV daily. ALLERGIES: No known drug allergies. DIET: Obese lady, acute weight loss or gain history is unknown. FAMILY AND SOCIAL HISTORY: Lives in the community. She has at least about 5 sons, I am told. She does have a 30+ pack year tobacco smoking history. Also, history of alcohol abuse. Illicit drug use or abuse history is unknown. Family history otherwise noncontributory. REVIEW OF SYSTEMS: Unobtainable secondary to patient's medical and mental condition. Since she has been here, no gross hematochezia or melena, no gross hematuria. She has had intermittent myoclonic jerks. No overt seizure activity. Review of systems is otherwise unobtainable secondary to patient's medical and mental condition. PHYSICAL EXAMINATION: VITAL SIGNS: At presentation in the Emergency Room, she had a temperature of 91.0 degrees Fahrenheit. Pulse was 100 after ACLS. Respiratory rate was 20, which was the set rate on the ventilator. Blood pressure 206/87. Oxygen sats were 95%. Inspired oxygen concentration was not recorded. She has had a T-max essentially of 103 degrees Fahrenheit since. GENERAL: Elderly looking, actually looks older than her stated age, female. Normocephalic, atraumatic. ET tube in place, taped around 23 cm at the lip. Looks chronically ill, in mild distress. HEAD, EYES, EARS, NOSE AND THROAT: She is anicteric. She does have some conjunctival erythema bilaterally. Grossly, no palpable lymph nodes in the supraclavicular or submandibular lymph node chains. No goiter. No gross jugular venous distention. LUNGS: Auscultation of both lung hanson, bibasilar rales, no wheezing. Slightly diminished bilateral breath sounds. HEART: Heart sounds 1 and 2 are heard at the time of my evaluation, regular rate and rhythm. No rubs, no murmurs. ABDOMEN: Soft, full, bowel sounds are positive, did not appear tender. No palpable hepatosplenomegaly. EXTREMITIES: Without overt digital clubbing or cyanosis. Trace pedal edema. Dorsalis pedis pulses were palpable bilaterally. SKIN: Was of poor turgor, no rash. She had some erythema to the face. No obvious cellulitis. NEUROLOGIC: Pupils were equal, round, about 3 mm, reactive to light, sluggishly. Extraocular muscle movements could not be assessed. She did have some spontaneous movements, mostly in the form of myoclonic jerks to her extremities. LABORATORY DATA: From my review are as follows: Admission white cell count 13,000, hemoglobin 13.4, hematocrit 46.1, platelet count 279. No band forms reported. INR was 1.15. Arterial blood gas was 7.04 with a pCO2 of 99, pO2 of 343 and 100% FIO2. Ventilator settings were not recorded. She is currently on assist control, tidal volume 500, rate of 20, PEEP of 5. Serum sodium was 143, potassium 5.4, chloride 85, bicarb 26, BUN 19, creatinine 1.3, glucose was 175. Lactic acid level was 16.1, AST 310, ALT 262. Urinalysis was negative for nitrites and leukocyte esterase. Urine drug screen, presumptive positive for benzos and opiates and alcohol. Tylenol and aspirin levels were within expected limits. BUN today is 28 with a creatinine of 1.5. ABG is now 7.47 with a pCO2 of 52. MICROBIOLOGY STUDIES: Blood cultures, no growth to date. Tracheal aspirate, no growth to date. I have reviewed her radiographic studies. Chest x-rays were done and essentially chest x-ray shows endotracheal tube with the tip in the lower level of the clavicular heads, evidence of hyperinflation with flattening of both hemidiaphragms, some enlargement of the right main pulmonary artery trunk. Increased interstitial markings appear chronic and acute. No gross pneumothorax, no gross bony fractures that I can see. Her nasogastric tube is seen coursing down the mediastinum. A CT of the head and brain was also done. I have read the radiologist's report, and essentially, it did not show any obvious acute abnormalities and no signs of overt anoxic injury. ASSESSMENT: 1. Acute hypoxemic respiratory failure, on mechanical ventilatory support. 2. Status post cardiac arrest. 3. Likely aspiration pneumonia. 4. Acute encephalopathy with myoclonic jerks at this point, but with evidence of brainstem function. 5. Acute exacerbation of chronic obstructive pulmonary disease. 6. Tobacco use disorder. 7. Obesity. 8. Hypertension. 9. History of alcohol abuse. PLAN: We will continue full mechanical ventilator support in the short time. I have reduced the minute ventilation. We will reduce the rate to 16. We will repeat arterial blood gases p.r.n. and daily in the short term. Aspiration precautions will be maintained. Bronchodilators and pulmonary hygiene will be per the respiratory therapist. Mental status will likely be the limiting factor to extubation, and if family desires continued care, quick recommendation will be made for a tracheostomy plus or minus percutaneous endoscopic gastrostomy tube placement. Clinically, we will continue empiric antibiotics, deescalating based on results of clinical and microbiologic data. She is appropriately on GI and DVT prophylaxis. She was found down, the reason still unclear. One will need to evaluate for possible pulmonary emboli. I will first of all see where the neurologic diagnosis takes us. In the meantime, D-dimer level will be ordered as well as lower extremity Dopplers bilaterally. We will continue her chronic disease medications. We will put her on p.r.n. Ativan just in case there is a development of significant alcohol withdrawal. She has been seen by neurologist. Flu and pneumonia vaccinations will be addressed per protocol. Thank you very much for the consult Dr. Duque. We will follow along and make further recommendations as picture progresses/becomes clearer. She is critically ill on life-sustaining interventions including mechanical ventilatory support at high risk for further deterioration. I should mention including and I should mention vasopressors will be titrated to keep mean arterial pressures greater than or equal to about 65 mmHg. At this point, we spent about 35-40 minutes of critical care time without overlap excluding any procedural time that may be necessary. JOB# [id number] ALEJANDRA/SUSANA FELIX
[2017-11-25] MEDS: DUONEB *Not for PRN Use IH SCH ×5 (01:19→20:00)
[2017-11-25 04:01] LABS: Basophils # (Auto) 0.1 K/mm3 (0.0-0.1); Basophils % (Auto) 0.5 % (0.0-1.8); Eosinophils % (Auto) 0.1 % (0.0-4.3); Hematocrit 42.4 % (30.3-42.9); Hemoglobin 13.7 gm/dl (10.1-14.3); Lymphocytes # (Auto) 1.9 K/mm3 (1.2-5.4); Lymphocytes % (Auto) 11.6 % (13.4-35.0); Mean Corpuscular HGB Conc 32 % (30-34); Mean Corpuscular Hemoglobin 32 pg (28-32); Mean Corpuscular Volume 99 fl (79-97); Platelet Count 160 K/mm3 (140-440); Red Blood Count 4.27 M/mm3 (3.65-5.03)
[2017-11-25] MEDS: DIPRIVAN 10 MG/ML 1,000 MG/100 ML BOTTLE IV SCH ×2 (04:20→22:10)
--- NOTE | 2017-11-25 04:40 | XRay Report ---
FINAL REPORT EXAM: XR CHEST 1V AP HISTORY: follow up respiratory failure TECHNIQUE: AP portable view(s) of the chest obtained. PRIORS: 11/24/2017 FINDINGS: Endotracheal tube terminates approximately 5 cm above the barbara. An enteric tube courses below the diaphragm and off of the inferior field of view with distal side port below the location of the gastroesophageal junction. No mediastinal shift. Cardiac silhouette is not enlarged. No pneumothorax, effusion, or focal pulmonary opacity identified. No acute skeletal findings. IMPRESSION: Satisfactory appearance of patient's support apparatus without pneumothorax.
[2017-11-25] MEDS: TYLENOL PR PRN ×2 (09:03→16:42)
[2017-11-25] MEDS: PEPCID IV SCH ×2 (09:03→22:10)
[2017-11-25] MEDS: KEPPRA 750 MG in D5W 100 ML IV SCH (09:04)
--- NOTE | 2017-11-25 11:49 | Progress Note ---
History Interval history: S/p cardiopulmonary arrest. Etiology likely secondary to respiratory arrest. Pt. with probable anoxic encephalopathy as well. Sepsis. Pt. meets criteria with tachycardia, leukocytosis, elevated lactate and prob dx of ? aspiration pneumonia. Cont. IV abx, f/u cx results. Lactate 16! on admission. Anoxic encephalopathy. Neuro consult. EEGs hows sharp activity at times at T4 (right temporal) then slower complex and slowing right frontal and bitemporally in the 4-5 Hz range. MRI ordered per neurology. Acute hypercapneic resp failure. Pulm following. Cont. vent per Pulm. ARF. Etiology prob sec to TAMARA from sepsis/ATN. Renal consult Elevated LFTs. Etiology prob secondary to ischemic hepatitis from sepsis/ATN. Check hepatitis panel. Consider GI consult Poor prognosis The high probability of a clinically significant, sudden or life threatening deterioration of the [cardiac, pulmonary, neuro and GI] system(s) required my full and direct attention, intervention and personal management. The aggregate critical care time was [32] minutes. This time is in addition to time spent performing reported procedures but includes the following: [x] Data Review and interpretation [x] Patient assessment and monitoring of vital signs [x] Documentation [x] Medication orders and management Hospitalist Physical - Constitutional Vitals: Temp Pulse Resp BP Pulse Ox 103.1 F H 83 16 115/58 97 11/25/17 08:00 11/25/17 10:00 11/25/17 10:00 11/25/17 10:00 11/25/17 10:00 Results - Labs CBC & Chem 7: 11/25/17 03:02 11/25/17 03:02 Labs: Laboratory Last Values WBC 16.0 K/mm3 (4.5-11.0) H 11/25/17 03:02 RBC 4.27 M/mm3 (3.65-5.03) 11/25/17 03:02 Hgb 13.7 gm/dl (10.1-14.3) 11/25/17 03:02 Hct 42.4 % (30.3-42.9) D 11/25/17 03:02 MCV 99 fl (79-97) H 11/25/17 03:02 MCH 32 pg (28-32) 11/25/17 03:02 MCHC 32 % (30-34) 11/25/17 03:02 RDW 16.0 % (13.2-15.2) H 11/25/17 03:02 Plt Count 160 K/mm3 (140-440) 11/25/17 03:02 Lymph % (Auto) 11.6 % (13.4-35.0) L 11/25/17 03:02 Mcminn % (Auto) 6.0 % (0.0-7.3) 11/25/17 03:02 Eos % (Auto) 0.1 % (0.0-4.3) 11/25/17 03:02 Baso % (Auto) 0.5 % (0.0-1.8) 11/25/17 03:02 Lymph # 1.9 K/mm3 (1.2-5.4) 11/25/17 03:02 Mcminn # 1.0 K/mm3 (0.0-0.8) H 11/25/17 03:02 Eos # 0.0 K/mm3 (0.0-0.4) 11/25/17 03:02 Baso # 0.1 K/mm3 (0.0-0.1) 11/25/17 03:02 Add Manual Diff Complete 11/23/17 12:44 Total Counted 100 11/23/17 12:44 Seg Neutrophils % 81.8 % (40.0-70.0) H 11/25/17 03:02 Seg Neuts % (Manual) 71.0 % (40.0-70.0) H 11/23/17 12:44 Band Neutrophils % 3.0 % 11/23/17 12:44 Lymphocytes % (Manual) 18.0 % (13.4-35.0) 11/23/17 12:44 Reactive Lymphs % (Man) 0 % 11/23/17 12:44 Monocytes % (Manual) 8.0 % (0.0-7.3) H 11/23/17 12:44 Eosinophils % (Manual) 0 % (0.0-4.3) 11/23/17 12:44 Basophils % (Manual) 0 % (0.0-1.8) 11/23/17 12:44 Metamyelocytes % 0 % 11/23/17 12:44 Myelocytes % 0 % 11/23/17 12:44 Promyelocytes % 0 % 11/23/17 12:44 Blast Cells % 0 % 11/23/17 12:44 Nucleated RBC % 6.0 % (0.0-0.9) H 11/23/17 12:44 Seg Neutrophils # 13.1 K/mm3 (1.8-7.7) H 11/25/17 03:02 Seg Neutrophils # Man 9.2 K/mm3 (1.8-7.7) H 11/23/17 12:44 Band Neutrophils # 0.4 K/mm3 11/23/17 12:44 Lymphocytes # (Manual) 2.3 K/mm3 (1.2-5.4) 11/23/17 12:44 Abs React Lymphs (Man) 0.0 K/mm3 11/23/17 12:44 Monocytes # (Manual) 1.0 K/mm3 (0.0-0.8) H 11/23/17 12:44 Eosinophils # (Manual) 0.0 K/mm3 (0.0-0.4) 11/23/17 12:44 Basophils # (Manual) 0.0 K/mm3 (0.0-0.1) 11/23/17 12:44 Metamyelocytes # 0.0 K/mm3 11/23/17 12:44 Myelocytes # 0.0 K/mm3 11/23/17 12:44 Promyelocytes # 0.0 K/mm3 11/23/17 12:44 Blast Cells # 0.0 K/mm3 11/23/17 12:44 WBC Morphology Not Reportable 11/23/17 12:44 Hypersegmented Neuts Not Reportable 11/23/17 12:44 Hyposegmented Neuts Not Reportable 11/23/17 12:44 Hypogranular Neuts Not Reportable 11/23/17 12:44 Smudge Cells Not Reportable 11/23/17 12:44 Toxic Granulation Not Reportable 11/23/17 12:44 Toxic Vacuolation Not Reportable 11/23/17 12:44 Dohle Bodies Not Reportable 11/23/17 12:44 Pelger-Huet Anomaly Not Reportable 11/23/17 12:44 Erika Rods Not Reportable 11/23/17 12:44 Platelet Estimate Consistent w auto 11/23/17 12:44 Clumped Platelets Not Reportable 11/23/17 12:44 Plt Clumps, EDTA Not Reportable 11/23/17 12:44 Large Platelets Not Reportable 11/23/17 12:44 Giant Platelets Not Reportable 11/23/17 12:44 Platelet Satelliting Not Reportable 11/23/17 12:44 Plt Morphology Comment Not Reportable 11/23/17 12:44 RBC Morphology Not Reportable 11/23/17 12:44 Dimorphic RBCs Not Reportable 11/23/17 12:44 Polychromasia Rare 11/23/17 12:44 Hypochromasia Not Reportable 11/23/17 12:44 Poikilocytosis Not Reportable 11/23/17 12:44 Anisocytosis 1+ 11/23/17 12:44 Microcytosis Not Reportable 11/23/17 12:44 Macrocytosis 1+ 11/23/17 12:44 Spherocytes Not Reportable 11/23/17 12:44 Pappenheimer Bodies Not Reportable 11/23/17 12:44 Sickle Cells Not Reportable 11/23/17 12:44 Target Cells Not Reportable 11/23/17 12:44 Tear Drop Cells Not Reportable 11/23/17 12:44 Ovalocytes Not Reportable 11/23/17 12:44 Helmet Cells Not Reportable 11/23/17 12:44 Mart-Presquille Bodies Not Reportable 11/23/17 12:44 Basin Rings Not Reportable 11/23/17 12:44 Valentino Cells Not Reportable 11/23/17 12:44 Bite Cells Not Reportable 11/23/17 12:44 Crenated Cell Not Reportable 11/23/17 12:44 Elliptocytes Not Reportable 11/23/17 12:44 Acanthocytes (Spur) Not Reportable 11/23/17 12:44 Rouleaux Not Reportable 11/23/17 12:44 Hemoglobin C Crystals Not Reportable 11/23/17 12:44 Schistocytes Not Reportable 11/23/17 12:44 Malaria parasites Not Reportable 11/23/17 12:44 Brett Bodies Not Reportable 11/23/17 12:44 Hem Pathologist Commnt No 11/23/17 12:44 PT 15.3 Sec. (12.2-14.9) H 11/23/17 12:44 INR 1.15 (0.87-1.13) H 11/23/17 12:44 APTT 33.9 Sec. (24.2-36.6) 11/23/17 12:44 D-Dimer 1977.37 ng/mlDDU (0-234) H 11/24/17 14:44 POC ABG pH 7.494 (7.35-7.45) H 11/25/17 03:35 POC ABG pCO2 48.1 (35-45) H 11/25/17 03:35 POC ABG pO2 82 (80-105) 11/25/17 03:35 POC ABG HCO3 37.0 11/25/17 03:35 POC ABG Total CO2 38 11/25/17 03:35 POC ABG O2 Sat 97 11/25/17 03:35 POC ABG Base Excess 14 11/25/17 03:35 FiO2 55 % 11/25/17 03:35 Sodium 148 mmol/L (137-145) H 11/25/17 03:02 Potassium 3.9 mmol/L (3.6-5.0) 11/25/17 03:02 Chloride 101.0 mmol/L (98-107) 11/25/17 03:02 Carbon Dioxide 35 mmol/L (22-30) H 11/25/17 03:02 Anion Gap 16 mmol/L 11/25/17 03:02 BUN 30 mg/dL (7-17) H 11/25/17 03:02 Creatinine 1.9 mg/dL (0.7-1.2) H 11/25/17 03:02 Estimated GFR 27 ml/min 11/25/17 03:02 BUN/Creatinine Ratio 16 % 11/25/17 03:02 Glucose 106 mg/dL (65-100) H 11/25/17 03:02 POC Glucose 96 (70-105) 11/25/17 05:55 Lactic Acid 2.00 mmol/L (0.7-2.0) 11/25/17 10:25 Calcium 7.0 mg/dL (8.4-10.2) L 11/25/17 03:02 Total Bilirubin 0.50 mg/dL (0.1-1.2) 11/24/17 04:03 AST 1091 units/L (5-40) H 11/24/17 04:03 ALT 986 units/L (7-56) H 11/24/17 04:03 Alkaline Phosphatase 75 units/L (35-129) 11/24/17 04:03 Troponin T < 0.010 ng/mL (0.00-0.029) 11/23/17 12:44 C-Reactive Protein 9.20 mg/dL (0.00-1.30) H 11/24/17 13:29 Total Protein 5.0 g/dL (6.3-8.2) L 11/24/17 04:03 Albumin 2.8 g/dL (3.9-5) L 11/24/17 04:03 Albumin/Globulin Ratio 1.3 % 11/24/17 04:03 Urine Color Yellow (Yellow) 11/23/17 13:39 Urine Turbidity Clear (Clear) 11/23/17 13:39 Urine pH 5.0 (5.0-7.0) 11/23/17 13:39 Ur Specific Bonnie 1.020 (1.003-1.030) 11/23/17 13:39 Urine Protein 30 mg/dl mg/dL (Negative) 11/23/17 13:39 Urine Glucose (UA) Neg mg/dL (Negative) 11/23/17 13:39 Urine Ketones Neg mg/dL (Negative) 11/23/17 13:39 Urine Blood Neg (Negative) 11/23/17 13:39 Urine Nitrite Neg (Negative) 11/23/17 13:39 Urine Bilirubin Neg (Negative) 11/23/17 13:39 Urine Urobilinogen 2.0 mg/dL (<2.0) 11/23/17 13:39 Ur Leukocyte Esterase Neg (Negative) 11/23/17 13:39 Urine WBC (Auto) 5.0 /HPF (0.0-6.0) 11/23/17 13:39 Urine RBC (Auto) 1.0 /HPF (0.0-6.0) 11/23/17 13:39 U Epithel Cells (Auto) 1.0 /HPF (0-13.0) 11/23/17 13:39 Urine Bacteria (Auto) 1+ /HPF (Negative) 11/23/17 13:39 Hyaline Casts 11 /LPF 11/23/17 13:39 Urine Mucus 2+ /HPF 11/23/17 13:39 Salicylates < 0.3 mg/dL (2.8-20.0) L 11/23/17 15:54 Urine Opiates Screen Presumptive positive 11/23/17 13:39 Urine Methadone Screen Presumptive negative 11/23/17 13:39 Acetaminophen < 15.0 ug/mL (10.0-30.0) 11/23/17 15:54 Ur Barbiturates Screen Presumptive negative 11/23/17 13:39 Ur Phencyclidine Scrn Presumptive negative 11/23/17 13:39 Ur Amphetamines Screen Presumptive negative 11/23/17 13:39 U Benzodiazepines Scrn Presumptive positive 11/23/17 13:39 Urine Cocaine Screen Presumptive negative 11/23/17 13:39 U Marijuana (THC) Screen Presumptive negative 11/23/17 13:39 Drugs of Abuse Note Disclamer 11/23/17 13:39
--- NOTE | 2017-11-25 13:35 | Progress Note ---
Assessment and Plan Acute hypoxemic respiratory failure, on mechanical ventilatory support. Status post cardiac arrest. Likely aspiration pneumonia. Acute encephalopathy with myoclonic jerks at this point, but with evidence of brainstem function. Acute exacerbation of chronic obstructive pulmonary disease. Tobacco use disorder. Obesity. Hypertension. History of alcohol abuse - continue full MVS acutely - Encephalopathy w/up ongoing - begin benadryl and double dose PPI for angioedema type toungue swelling - continue aspiration precautions / address VAP bundle daily - continue bronchodilators and pulmonary hygiene per RT - continue to wean oxygen for espinoza > 90% - NGT to LIS for now - begin reglan - get KUB re: high residuals and reduced bowel sounds - continue GI & VTE prophylaxis - continue empiric AB's and follow C&S - continue other care per attending/ other consultants ....remains critically ill on MVS and at high risk for further deterioration including ..35' CCT Subjective Date of service: 11/25/17 Principal diagnosis: Acute Hypoxemic Resp Failure; S/P Cardiac Arrest; Acute Encephalopathy Interval history: Patient is seen today for: Acute Hypoxemic Resp Failure; S/P Cardiac Arrest; Acute Encephalopathy Seen and examined at bedside; 24hour events reviewed; nursing and respiratory care staff consulted; no adverse overnight events reported to me; reamins on MVS ; AMS is persistent; toungue swelling is more; high residuals and emesis X 1; no coffe grounds and no other gross bleeding Objective Vital Signs - 12hr 11/25/17 11/25/17 11/25/17 01:36 01:45 02:00 Temperature Pulse Rate 96 H 95 H Pulse Rate [ 96 H Anterior Bilateral Throughout] Pulse Rate [ Left Radial] Pulse Rate [ Right Radial] Respiratory 20 16 Rate Respiratory 13 Rate [Anterior Bilateral Throughout] Blood Pressure 108/54 111/53 O2 Sat by Pulse 100 100 Oximetry 11/25/17 11/25/17 11/25/17 02:15 02:30 02:45 Temperature Pulse Rate 97 H 96 H 97 H Pulse Rate [ Anterior Bilateral Throughout] Pulse Rate [ Left Radial] Pulse Rate [ Right Radial] Respiratory 15 13 14 Rate Respiratory Rate [Anterior Bilateral Throughout] Blood Pressure 112/53 117/57 106/56 O2 Sat by Pulse 99 100 100 Oximetry 11/25/17 11/25/17 11/25/17 03:00 03:15 03:21 Temperature Pulse Rate 96 H 96 H 96 H Pulse Rate [ Anterior Bilateral Throughout] Pulse Rate [ Left Radial] Pulse Rate [ Right Radial] Respiratory 18 18 Rate Respiratory Rate [Anterior Bilateral Throughout] Blood Pressure 107/58 113/53 113/53 O2 Sat by Pulse 100 99 99 Oximetry 11/25/17 11/25/17 11/25/17 03:30 03:45 04:00 Temperature Pulse Rate 95 H 96 H 93 H Pulse Rate [ Anterior Bilateral Throughout] Pulse Rate [ 88 Left Radial] Pulse Rate [ 88 Right Radial] Respiratory 17 21 18 Rate Respiratory Rate [Anterior Bilateral Throughout] Blood Pressure 109/59 103/56 103/56 O2 Sat by Pulse 100 97 97 Oximetry 11/25/17 11/25/17 11/25/17 04:15 04:30 04:45 Temperature Pulse Rate 92 H 89 90 Pulse Rate [ Anterior Bilateral Throughout] Pulse Rate [ Left Radial] Pulse Rate [ Right Radial] Respiratory 20 19 16 Rate Respiratory Rate [Anterior Bilateral Throughout] Blood Pressure 107/55 97/61 111/69 O2 Sat by Pulse 97 99 99 Oximetry 11/25/17 11/25/17 11/25/17 05:00 05:15 05:30 Temperature Pulse Rate 89 86 88 Pulse Rate [ Anterior Bilateral Throughout] Pulse Rate [ Left Radial] Pulse Rate [ Right Radial] Respiratory 18 18 17 Rate Respiratory Rate [Anterior Bilateral Throughout] Blood Pressure 102/63 117/61 129/65 O2 Sat by Pulse 100 98 99 Oximetry 11/25/17 11/25/17 11/25/17 05:45 06:00 06:15 Temperature Pulse Rate 87 85 87 Pulse Rate [ Anterior Bilateral Throughout] Pulse Rate [ Left Radial] Pulse Rate [ Right Radial] Respiratory 19 17 16 Rate Respiratory Rate [Anterior Bilateral Throughout] Blood Pressure 121/64 116/62 120/60 O2 Sat by Pulse 99 99 100 Oximetry 11/25/17 11/25/17 11/25/17 06:24 06:30 06:45 Temperature 99.7 F H Pulse Rate 86 82 Pulse Rate [ Anterior Bilateral Throughout] Pulse Rate [ Left Radial] Pulse Rate [ Right Radial] Respiratory 23 26 H Rate Respiratory Rate [Anterior Bilateral Throughout] Blood Pressure 117/63 115/61 O2 Sat by Pulse 99 99 Oximetry 11/25/17 11/25/17 11/25/17 07:00 07:15 07:30 Temperature Pulse Rate 84 83 84 Pulse Rate [ Anterior Bilateral Throughout] Pulse Rate [ Left Radial] Pulse Rate [ Right Radial] Respiratory 32 H 19 25 H Rate Respiratory Rate [Anterior Bilateral Throughout] Blood Pressure 113/63 102/60 116/59 O2 Sat by Pulse 99 98 99 Oximetry 11/25/17 11/25/17 11/25/17 07:36 07:40 07:45 Temperature Pulse Rate 83 Pulse Rate [ 84 Anterior Bilateral Throughout] Pulse Rate [ Left Radial] Pulse Rate [ Right Radial] Respiratory 19 14 Rate Respiratory 19 Rate [Anterior Bilateral Throughout] Blood Pressure 115/62 O2 Sat by Pulse 98 98 Oximetry 11/25/17 11/25/17 11/25/17 07:46 08:00 08:15 Temperature 103.1 F H Pulse Rate 82 81 Pulse Rate [ 83 Anterior Bilateral Throughout] Pulse Rate [ Left Radial] Pulse Rate [ Right Radial] Respiratory 14 15 Rate Respiratory 16 Rate [Anterior Bilateral Throughout] Blood Pressure 112/60 102/54 O2 Sat by Pulse 97 96 Oximetry 11/25/17 11/25/17 11/25/17 08:30 08:45 09:00 Temperature Pulse Rate 85 84 86 Pulse Rate [ Anterior Bilateral Throughout] Pulse Rate [ Left Radial] Pulse Rate [ Right Radial] Respiratory 15 15 15 Rate Respiratory Rate [Anterior Bilateral Throughout] Blood Pressure 116/59 115/58 123/61 O2 Sat by Pulse 95 96 96 Oximetry 11/25/17 11/25/17 11/25/17 09:15 09:30 09:45 Temperature Pulse Rate 85 85 86 Pulse Rate [ Anterior Bilateral Throughout] Pulse Rate [ Left Radial] Pulse Rate [ Right Radial] Respiratory 14 15 17 Rate Respiratory Rate [Anterior Bilateral Throughout] Blood Pressure 122/59 123/60 119/60 O2 Sat by Pulse 97 97 96 Oximetry 11/25/17 11/25/17 11/25/17 10:00 11:38 12:00 Temperature 102.7 F H Pulse Rate 83 84 Pulse Rate [ Anterior Bilateral Throughout] Pulse Rate [ Left Radial] Pulse Rate [ Right Radial] Respiratory 16 Rate Respiratory Rate [Anterior Bilateral Throughout] Blood Pressure 115/58 110/56 O2 Sat by Pulse 97 96 Oximetry 11/25/17 12:45 Temperature Pulse Rate Pulse Rate [ 90 Anterior Bilateral Throughout] Pulse Rate [ Left Radial] Pulse Rate [ Right Radial] Respiratory Rate Respiratory 21 Rate [Anterior Bilateral Throughout] Blood Pressure O2 Sat by Pulse Oximetry CBC and BMP: 11/26/17 03:26 11/26/17 03:26 ABG, PT/INR, D-dimer: ABG POC ABG pH 7.494 (7.35-7.45) H 11/25/17 03:35 POC ABG pCO2 48.1 (35-45) H 11/25/17 03:35 POC ABG pO2 82 (80-105) 11/25/17 03:35 POC ABG HCO3 37.0 11/25/17 03:35 POC ABG Total CO2 38 11/25/17 03:35 POC ABG O2 Sat 97 11/25/17 03:35 PT/INR, D-dimer PT 15.3 Sec. (12.2-14.9) H 11/23/17 12:44 INR 1.15 (0.87-1.13) H 11/23/17 12:44 D-Dimer 1977.37 ng/mlDDU (0-234) H 11/24/17 14:44 Abnormal lab findings: Abnormal Labs 11/23/17 11/23/17 11/23/17 12:44 12:44 12:44 WBC 13.0 H Hgb Hct 46.1 H MCV 112 H MCH 33 H MCHC 29 L RDW 18.5 H Lymph % (Auto) Lymph # [place] # Seg Neutrophils % Seg Neuts % (Manual) 71.0 H Monocytes % (Manual) 8.0 H Nucleated RBC % 6.0 H Seg Neutrophils # Seg Neutrophils # Man 9.2 H Monocytes # (Manual) 1.0 H PT 15.3 H INR 1.15 H D-Dimer POC ABG pH POC ABG pCO2 POC ABG pO2 Sodium Potassium 5.4 H Chloride 85.2 L Carbon Dioxide BUN 19 H Creatinine 1.3 H Glucose 175 H Lactic Acid Calcium AST 310 H ALT 262 H C-Reactive Protein Total Protein 5.7 L Albumin 2.9 L Salicylates 11/23/17 11/23/17 11/23/17 12:44 13:23 15:54 WBC Hgb Hct MCV MCH MCHC RDW Lymph % (Auto) Lymph # [place] # Seg Neutrophils % Seg Neuts % (Manual) Monocytes % (Manual) Nucleated RBC % Seg Neutrophils # Seg Neutrophils # Man Monocytes # (Manual) PT INR D-Dimer POC ABG pH 7.035 L POC ABG pCO2 99.1 H POC ABG pO2 343 H Sodium Potassium Chloride Carbon Dioxide BUN Creatinine Glucose Lactic Acid 16.10 H* Calcium AST ALT C-Reactive Protein Total Protein Albumin Salicylates < 0.3 L 11/23/17 11/24/17 11/24/17 16:42 04:03 04:03 WBC 16.8 H Hgb 15.7 H Hct 48.9 H MCV 101 H MCH MCHC RDW 16.5 H Lymph % (Auto) 5.2 L Lymph # 0.9 L [place] # 0.9 H Seg Neutrophils % 89.1 H Seg Neuts % (Manual) Monocytes % (Manual) Nucleated RBC % Seg Neutrophils # 14.9 H Seg Neutrophils # Man Monocytes # (Manual) PT INR D-Dimer POC ABG pH POC ABG pCO2 POC ABG pO2 55 L Sodium Potassium Chloride 96.0 L Carbon Dioxide 33 H D BUN 28 H Creatinine 1.5 H Glucose 108 H Lactic Acid Calcium 7.7 L AST 1091 H ALT 986 H C-Reactive Protein Total Protein 5.0 L Albumin 2.8 L Salicylates 11/24/17 11/24/17 11/24/17 05:55 13:29 13:29 WBC Hgb Hct MCV MCH MCHC RDW Lymph % (Auto) Lymph # [place] # Seg Neutrophils % Seg Neuts % (Manual) Monocytes % (Manual) Nucleated RBC % Seg Neutrophils # Seg Neutrophils # Man Monocytes # (Manual) PT INR D-Dimer POC ABG pH 7.469 H POC ABG pCO2 52.3 H POC ABG pO2 69 L Sodium Potassium Chloride Carbon Dioxide BUN Creatinine Glucose Lactic Acid 3.20 H* Calcium AST ALT C-Reactive Protein 9.20 H Total Protein Albumin Salicylates 11/24/17 11/24/17 11/25/17 14:44 20:55 01:55 WBC Hgb Hct MCV MCH MCHC RDW Lymph % (Auto) Lymph # [place] # Seg Neutrophils % Seg Neuts % (Manual) Monocytes % (Manual) Nucleated RBC % Seg Neutrophils # Seg Neutrophils # Man Monocytes # (Manual) PT INR D-Dimer 1977.37 H POC ABG pH 7.471 H POC ABG pCO2 56.2 H POC ABG pO2 Sodium Potassium Chloride Carbon Dioxide BUN Creatinine Glucose Lactic Acid 3.00 H* Calcium AST ALT C-Reactive Protein Total Protein Albumin Salicylates 11/25/17 11/25/17 11/25/17 03:02 03:02 03:02 WBC 16.0 H Hgb Hct MCV 99 H MCH MCHC RDW 16.0 H Lymph % (Auto) 11.6 L Lymph # [place] # 1.0 H Seg Neutrophils % 81.8 H Seg Neuts % (Manual) Monocytes % (Manual) Nucleated RBC % Seg Neutrophils # 13.1 H Seg Neutrophils # Man Monocytes # (Manual) PT INR D-Dimer POC ABG pH POC ABG pCO2 POC ABG pO2 Sodium 148 H Potassium Chloride Carbon Dioxide 35 H BUN 30 H Creatinine 1.9 H Glucose 106 H Lactic Acid 2.90 H* Calcium 7.0 L AST ALT C-Reactive Protein Total Protein Albumin Salicylates 11/25/17 11/25/17 03:35 07:15 WBC Hgb Hct MCV MCH MCHC RDW Lymph % (Auto) Lymph # [place] # Seg Neutrophils % Seg Neuts % (Manual) Monocytes % (Manual) Nucleated RBC % Seg Neutrophils # Seg Neutrophils # Man Monocytes # (Manual) PT INR D-Dimer POC ABG pH 7.494 H POC ABG pCO2 48.1 H POC ABG pO2 Sodium Potassium Chloride Carbon Dioxide BUN Creatinine Glucose Lactic Acid 2.30 H* Calcium AST ALT C-Reactive Protein Total Protein Albumin Salicylates
[2017-11-25] MEDS: REGLAN IV SCH ×2 (15:11→22:11)
[2017-11-25] MEDS: BENADRYL IV SCH ×2 (15:11→22:11)
[2017-11-25] MEDS: HEPARIN SUB-Q SCH ×2 (15:12→22:14)
[2017-11-25 15:36] LABS: Albumin 2.4 g/dL (3.9-5); Bilirubin,Direct 0.2 mg/dL (0-0.2)
--- NOTE | 2017-11-25 16:27 | XRay Report ---
FINAL REPORT EXAM: XR ABDOMEN 1V AP HISTORY: bowel obstruction TECHNIQUE: Supine abdomen PRIORS: None. FINDINGS: Moderate amount of stool and gas present within the colon. No evidence of colonic dilatation. There is a gas-filled loop of wall centrally most likely sigmoid colon. NG tube identified. Distal end overlying the fundus of the stomach. No signs of free air. No abnormal calcifications are identified. IMPRESSION: NG tube identified. Nonspecific bowel gas pattern no definitive evidence for obstruction.
[2017-11-25] MEDS: VANCOMYCIN/0.45 NS 1 GM/250 ML 1 GM/250 ML BAG IV SCH (16:43)
--- NOTE | 2017-11-25 18:06 | Progress Note ---
Assessment and Plan Impression: 1. Possible complex partial seizures with secondary generalization 2. Hypoxic ischemic encephalopathy Plan: 1. Will order repeat EEG to be done Tuesday for Dr. Montano to review. 2. If EEG consistent with brain , Dr. Montano may wish to order a brain blood flow study and/or apnea testing. 3. In the meantime, I am increasing her levetiracetam to 500 mg IV every 6 hours and ordering a baseline blood level today. 4. If truncal jerks are not responding to the increased dose (could be a brainstem phenomenon rather than seizures), would suggest adding oxcarbazepine initially 300 mg per NG every 6 hours titrating upwards to perhaps 400 mg every 6 hours. Would avoid Depacon or phenytoin due to possible elevation of liver functions which are already elevated. Levetiracetam can rarely elevate liver functions but today's levels are better than yesterday. 5. Discussed plans with her son Angel by telephone who also said ok to convey this to her brother Leonidas whom I located by phone. He returned to her room. I explained if the EEG shows probable brain in addition to additional studies, the family may need to discuss withdrawing support. 6. Will repeat CT noncontrast, since unable to do MRI. 35 minutes critical care time spent with this patient. Subjective Date of service: 11/25/17 Principal diagnosis: coma, possible seizures Interval history: Chief complaint: Coma, possible seizures History of Present Illness: This 56-year-old white female is seen in follow-up. Oriented to the nurse, chin jerking stopped but she still has truncal jerks that recurred after lowering her propofol. Still on levetiracetam 750 mg IV every 12 hours. Could not get MRI since unstable. Objective - Exam Narrative Exam: General Appearance: well developed well nourished late 50's white female, orally intubated, with notable scleral edema and truncal forward jerks with slight head turn to left with the jerks. The truncal jerks appear diaphragmatic , resembling hiccoughs but stronger. General Neurologic Exam: Mental Status: No eye-opening or other response to voice or pain or to commands. Cranial Nerves: No blink to visual threat, PERRL 1 mm slight reaction X 2 seen only with ophthalmoscope magnification, negative doll's eyes and ice water calorics bilaterally, no corneal reflexes, no grimace to supraorbital pressure, Grey cannot be assessed, absent gags to oral suctioning and absent cough response to tracheal suctioning, shoulder shrug cannot be done, tongue protruding at rest but no voluntary protrusion. Cerebellar: Cannot be assessed. Motor Exam Upper Extremities: No response to supraorbital pressure or chest or neck skin pinch or nailbed pressure or palmar rub. No atrophy or fasciculations are noted visually. Motor Exam Lower Extremities: No response to supraorbital pressure or chest or neck skin pinch or pinprick or nailbed pressure or plantar rub. No atrophy or fasciculations are noted visually. - Vital Sign Vital Signs - 12hr 11/25/17 11/25/17 11/25/17 06:00 06:15 06:24 Temperature 99.7 F H Pulse Rate 85 87 Pulse Rate [ Anterior Bilateral Throughout] Respiratory 17 16 Rate Respiratory Rate [Anterior Bilateral Throughout] Blood Pressure 116/62 120/60 O2 Sat by Pulse 99 100 Oximetry 11/25/17 11/25/17 11/25/17 06:30 06:45 07:00 Temperature Pulse Rate 86 82 84 Pulse Rate [ Anterior Bilateral Throughout] Respiratory 23 26 H 32 H Rate Respiratory Rate [Anterior Bilateral Throughout] Blood Pressure 117/63 115/61 113/63 O2 Sat by Pulse 99 99 99 Oximetry 11/25/17 11/25/17 11/25/17 07:15 07:30 07:36 Temperature Pulse Rate 83 84 Pulse Rate [ 84 Anterior Bilateral Throughout] Respiratory 19 25 H Rate Respiratory 19 Rate [Anterior Bilateral Throughout] Blood Pressure 102/60 116/59 O2 Sat by Pulse 98 99 Oximetry 11/25/17 11/25/17 11/25/17 07:40 07:45 07:46 Temperature Pulse Rate 83 Pulse Rate [ 83 Anterior Bilateral Throughout] Respiratory 19 14 Rate Respiratory 16 Rate [Anterior Bilateral Throughout] Blood Pressure 115/62 O2 Sat by Pulse 98 98 Oximetry 11/25/17 11/25/17 11/25/17 08:00 08:15 08:30 Temperature 103.1 F H Pulse Rate 82 81 85 Pulse Rate [ Anterior Bilateral Throughout] Respiratory 14 15 15 Rate Respiratory Rate [Anterior Bilateral Throughout] Blood Pressure 112/60 102/54 116/59 O2 Sat by Pulse 97 96 95 Oximetry 11/25/17 11/25/17 11/25/17 08:45 09:00 09:15 Temperature Pulse Rate 84 86 85 Pulse Rate [ Anterior Bilateral Throughout] Respiratory 15 15 14 Rate Respiratory Rate [Anterior Bilateral Throughout] Blood Pressure 115/58 123/61 122/59 O2 Sat by Pulse 96 96 97 Oximetry 11/25/17 11/25/17 11/25/17 09:30 09:45 10:00 Temperature Pulse Rate 85 86 83 Pulse Rate [ Anterior Bilateral Throughout] Respiratory 15 17 16 Rate Respiratory Rate [Anterior Bilateral Throughout] Blood Pressure 123/60 119/60 115/58 O2 Sat by Pulse 97 96 97 Oximetry 11/25/17 11/25/17 11/25/17 10:15 10:30 10:45 Temperature Pulse Rate 84 82 85 Pulse Rate [ Anterior Bilateral Throughout] Respiratory 17 19 17 Rate Respiratory Rate [Anterior Bilateral Throughout] Blood Pressure 119/58 120/59 120/60 O2 Sat by Pulse 95 95 95 Oximetry 11/25/17 11/25/17 11/25/17 11:00 11:15 11:30 Temperature Pulse Rate 83 83 82 Pulse Rate [ Anterior Bilateral Throughout] Respiratory 25 H 23 19 Rate Respiratory Rate [Anterior Bilateral Throughout] Blood Pressure 122/60 131/61 110/56 O2 Sat by Pulse 95 95 95 Oximetry 11/25/17 11/25/17 11/25/17 11:38 11:45 12:00 Temperature 102.7 F H Pulse Rate 84 87 88 Pulse Rate [ Anterior Bilateral Throughout] Respiratory 22 25 H Rate Respiratory Rate [Anterior Bilateral Throughout] Blood Pressure 110/56 119/61 124/60 O2 Sat by Pulse 96 95 95 Oximetry 11/25/17 11/25/17 11/25/17 12:15 12:30 12:45 Temperature Pulse Rate 90 90 90 Pulse Rate [ 90 Anterior Bilateral Throughout] Respiratory 25 H 22 24 Rate Respiratory 21 Rate [Anterior Bilateral Throughout] Blood Pressure 124/60 126/57 117/59 O2 Sat by Pulse 95 95 96 Oximetry 11/25/17 11/25/17 11/25/17 12:55 13:00 13:15 Temperature Pulse Rate 92 H 86 Pulse Rate [ 89 Anterior Bilateral Throughout] Respiratory 17 15 Rate Respiratory 20 Rate [Anterior Bilateral Throughout] Blood Pressure 128/56 120/57 O2 Sat by Pulse 93 94 Oximetry 11/25/17 11/25/17 11/25/17 13:30 13:45 14:00 Temperature Pulse Rate 87 88 88 Pulse Rate [ Anterior Bilateral Throughout] Respiratory 14 15 16 Rate Respiratory Rate [Anterior Bilateral Throughout] Blood Pressure 124/61 119/60 125/65 O2 Sat by Pulse 95 94 94 Oximetry 11/25/17 11/25/17 11/25/17 14:15 14:30 14:45 Temperature Pulse Rate 89 88 92 H Pulse Rate [ Anterior Bilateral Throughout] Respiratory 12 13 16 Rate Respiratory Rate [Anterior Bilateral Throughout] Blood Pressure 128/72 134/59 138/64 O2 Sat by Pulse 95 94 94 Oximetry 11/25/17 11/25/17 11/25/17 15:00 15:15 15:28 Temperature Pulse Rate 90 91 H 91 H Pulse Rate [ Anterior Bilateral Throughout] Respiratory 15 15 Rate Respiratory Rate [Anterior Bilateral Throughout] Blood Pressure 135/64 137/64 137/60 O2 Sat by Pulse 94 95 96 Oximetry 11/25/17 16:00 Temperature 102.4 F H Pulse Rate Pulse Rate [ Anterior Bilateral Throughout] Respiratory Rate Respiratory Rate [Anterior Bilateral Throughout] Blood Pressure O2 Sat by Pulse Oximetry - Laboratory Findings CBC and BMP: 11/25/17 03:02 11/25/17 03:02 Abnormal Lab Findings: Abnormal Labs 11/23/17 11/23/17 11/23/17 12:44 12:44 12:44 WBC 13.0 H Hgb Hct 46.1 H MCV 112 H MCH 33 H MCHC 29 L RDW 18.5 H Lymph % (Auto) Lymph # [place] # Seg Neutrophils % Seg Neuts % (Manual) 71.0 H Monocytes % (Manual) 8.0 H Nucleated RBC % 6.0 H Seg Neutrophils # Seg Neutrophils # Man 9.2 H Monocytes # (Manual) 1.0 H PT 15.3 H INR 1.15 H D-Dimer POC ABG pH POC ABG pCO2 POC ABG pO2 Sodium Potassium 5.4 H Chloride 85.2 L Carbon Dioxide BUN 19 H Creatinine 1.3 H Glucose 175 H Lactic Acid Calcium AST 310 H ALT 262 H C-Reactive Protein Total Protein 5.7 L Albumin 2.9 L Salicylates 11/23/17 11/23/17 11/23/17 12:44 13:23 15:54 WBC Hgb Hct MCV MCH MCHC RDW Lymph % (Auto) Lymph # [place] # Seg Neutrophils % Seg Neuts % (Manual) Monocytes % (Manual) Nucleated RBC % Seg Neutrophils # Seg Neutrophils # Man Monocytes # (Manual) PT INR D-Dimer POC ABG pH 7.035 L POC ABG pCO2 99.1 H POC ABG pO2 343 H Sodium Potassium Chloride Carbon Dioxide BUN Creatinine Glucose Lactic Acid 16.10 H* Calcium AST ALT C-Reactive Protein Total Protein Albumin Salicylates < 0.3 L 11/23/17 11/24/17 11/24/17 16:42 04:03 04:03 WBC 16.8 H Hgb 15.7 H Hct 48.9 H MCV 101 H MCH MCHC RDW 16.5 H Lymph % (Auto) 5.2 L Lymph # 0.9 L [place] # 0.9 H Seg Neutrophils % 89.1 H Seg Neuts % (Manual) Monocytes % (Manual) Nucleated RBC % Seg Neutrophils # 14.9 H Seg Neutrophils # Man Monocytes # (Manual) PT INR D-Dimer POC ABG pH POC ABG pCO2 POC ABG pO2 55 L Sodium Potassium Chloride 96.0 L Carbon Dioxide 33 H D BUN 28 H Creatinine 1.5 H Glucose 108 H Lactic Acid Calcium 7.7 L AST 1091 H ALT 986 H C-Reactive Protein Total Protein 5.0 L Albumin 2.8 L Salicylates 11/24/17 11/24/17 11/24/17 05:55 13:29 13:29 WBC Hgb Hct MCV MCH MCHC RDW Lymph % (Auto) Lymph # [place] # Seg Neutrophils % Seg Neuts % (Manual) Monocytes % (Manual) Nucleated RBC % Seg Neutrophils # Seg Neutrophils # Man Monocytes # (Manual) PT INR D-Dimer POC ABG pH 7.469 H POC ABG pCO2 52.3 H POC ABG pO2 69 L Sodium Potassium Chloride Carbon Dioxide BUN Creatinine Glucose Lactic Acid 3.20 H* Calcium AST ALT C-Reactive Protein 9.20 H Total Protein Albumin Salicylates 11/24/17 11/24/17 11/25/17 14:44 20:55 01:55 WBC Hgb Hct MCV MCH MCHC RDW Lymph % (Auto) Lymph # [place] # Seg Neutrophils % Seg Neuts % (Manual) Monocytes % (Manual) Nucleated RBC % Seg Neutrophils # Seg Neutrophils # Man Monocytes # (Manual) PT INR D-Dimer 1977.37 H POC ABG pH 7.471 H POC ABG pCO2 56.2 H POC ABG pO2 Sodium Potassium Chloride Carbon Dioxide BUN Creatinine Glucose Lactic Acid 3.00 H* Calcium AST ALT C-Reactive Protein Total Protein Albumin Salicylates 11/25/17 11/25/17 11/25/17 03:02 03:02 03:02 WBC 16.0 H Hgb Hct MCV 99 H MCH MCHC RDW 16.0 H Lymph % (Auto) 11.6 L Lymph # [place] # 1.0 H Seg Neutrophils % 81.8 H Seg Neuts % (Manual) Monocytes % (Manual) Nucleated RBC % Seg Neutrophils # 13.1 H Seg Neutrophils # Man Monocytes # (Manual) PT INR D-Dimer POC ABG pH POC ABG pCO2 POC ABG pO2 Sodium 148 H Potassium Chloride Carbon Dioxide 35 H BUN 30 H Creatinine 1.9 H Glucose 106 H Lactic Acid 2.90 H* Calcium 7.0 L AST ALT C-Reactive Protein Total Protein Albumin Salicylates 11/25/17 11/25/17 11/25/17 03:02 03:35 07:15 WBC Hgb Hct MCV MCH MCHC RDW Lymph % (Auto) Lymph # [place] # Seg Neutrophils % Seg Neuts % (Manual) Monocytes % (Manual) Nucleated RBC % Seg Neutrophils # Seg Neutrophils # Man Monocytes # (Manual) PT INR D-Dimer POC ABG pH 7.494 H POC ABG pCO2 48.1 H POC ABG pO2 Sodium Potassium Chloride Carbon Dioxide BUN Creatinine Glucose Lactic Acid 2.30 H* Calcium AST 300 H ALT 561 H C-Reactive Protein Total Protein 4.5 L Albumin 2.4 L Salicylates
[2017-11-25] MEDS: KEPPRA IV SCH (20:23)
[2017-11-25] MEDS: D5W IV SCH (20:23)
[2017-11-26] MEDS: ATIVAN IV PRN ×2 (00:32→05:08)
[2017-11-26] MEDS: D5NS 1,000 ML IV SCH ×3 (00:35→22:00)
[2017-11-26] MEDS: KEPPRA IV SCH ×5 (00:41→23:43)
[2017-11-26] MEDS: D5W IV SCH ×5 (00:41→23:43)
[2017-11-26] MEDS: DUONEB *Not for PRN Use IH SCH ×4 (01:50→20:29)
[2017-11-26] MEDS: ZOSYN/NS 4.5GM/100ML 4.5 GM/100 ML VIAL IV SCH ×3 (02:28→18:30)
[2017-11-26 04:29] LABS: Basophils # (Auto) 0.1 K/mm3 (0.0-0.1); Basophils % (Auto) 0.7 % (0.0-1.8); Eosinophils % (Auto) 0.3 % (0.0-4.3); Hematocrit 45.9 % (30.3-42.9); Hemoglobin 14.9 gm/dl (10.1-14.3); Lymphocytes # (Auto) 1.3 K/mm3 (1.2-5.4); Mean Corpuscular HGB Conc 33 % (30-34); Mean Corpuscular Hemoglobin 32 pg (28-32); Mean Corpuscular Volume 98 fl (79-97); Monocytes # (Auto) 0.8 K/mm3 (0.0-0.8); Monocytes % (Auto) 6.3 % (0.0-7.3); Platelet Count 137 K/mm3 (140-440); Red Blood Count 4.69 M/mm3 (3.65-5.03); Red Cell Distribution Width 16.3 % (13.2-15.2)
[2017-11-26 04:42] LABS: Calcium 7.5 mg/dL (8.4-10.2)
--- NOTE | 2017-11-26 05:39 | XRay Report ---
FINAL REPORT PROCEDURE: XR CHEST 1V AP TECHNIQUE: Chest radiograph anteroposterior view. CPT 41619 HISTORY: follow up respiratory failure COMPARISON: No prior studies are available for comparison. FINDINGS: Heart: Normal. Mediastinum/Vessels: Normal. Lungs/Pleural space: Lungs are clear per and expanded. There are no infiltrates. There are no effusions or pneumothoraces.. Bony thorax: No acute osseous abnormality. Life support devices: The endotracheal tube is in the mid trachea. The NG tube is in the stomach.. IMPRESSION: No acute cardiopulmonary abnormality. ET tube and NG tube are in proper position.
[2017-11-26] MEDS: REGLAN IV SCH ×2 (06:45→13:48)
[2017-11-26] MEDS: HEPARIN SUB-Q SCH ×4 (06:45→23:43)
[2017-11-26] MEDS: BENADRYL IV SCH ×2 (10:49→23:44)
[2017-11-26] MEDS: PEPCID IV SCH ×2 (10:49→23:44)
--- NOTE | 2017-11-26 11:48 | Progress Note ---
History Interval history: S/p cardiopulmonary arrest. Etiology likely secondary to respiratory arrest. Pt. with probable anoxic encephalopathy as well. Sepsis. Pt. meets criteria with tachycardia, leukocytosis, elevated lactate and prob dx of ? aspiration pneumonia. Cont. IV abx, f/u cx results. Lactate 16! on admission. Anoxic encephalopathy. Neuro following. Evaluate CT scan today to rule out cerebral edema. Possible complex partial seizures with secondary generalization. Consider oxcarbamazepine or Versed if truncal jerks continue Acute hypercapneic resp failure. Pulm following. Cont. vent per Pulm. ARF. Etiology prob sec to TAMARA from sepsis/ATN. Renal consult Elevated LFTs. Etiology prob secondary to ischemic hepatitis from sepsis/ATN. Check hepatitis panel. Consider GI consult Poor prognosis The high probability of a clinically significant, sudden or life threatening deterioration of the [cardiac, pulmonary, neuro and GI] system(s) required my full and direct attention, intervention and personal management. The aggregate critical care time was [32] minutes. This time is in addition to time spent performing reported procedures but includes the following: [x] Data Review and interpretation [x] Patient assessment and monitoring of vital signs [x] Documentation [x] Medication orders and management Hospitalist Physical - Constitutional Vitals: Temp Pulse Resp BP Pulse Ox 99.9 F H 105 H 26 H 192/91 90 11/26/17 08:00 11/26/17 11:30 11/26/17 11:30 11/26/17 11:30 11/26/17 11:30 Results - Labs CBC & Chem 7: 11/26/17 03:26 11/26/17 03:26 Labs: Laboratory Last Values WBC 12.7 K/mm3 (4.5-11.0) H 11/26/17 03:26 RBC 4.69 M/mm3 (3.65-5.03) 11/26/17 03:26 Hgb 14.9 gm/dl (10.1-14.3) H 11/26/17 03:26 Hct 45.9 % (30.3-42.9) H 11/26/17 03:26 MCV 98 fl (79-97) H 11/26/17 03:26 MCH 32 pg (28-32) 11/26/17 03:26 MCHC 33 % (30-34) 11/26/17 03:26 RDW 16.3 % (13.2-15.2) H 11/26/17 03:26 Plt Count 137 K/mm3 (140-440) L 11/26/17 03:26 Lymph % (Auto) 10.0 % (13.4-35.0) L 11/26/17 03:26 [place] % (Auto) 6.3 % (0.0-7.3) 11/26/17 03:26 Eos % (Auto) 0.3 % (0.0-4.3) 11/26/17 03:26 Baso % (Auto) 0.7 % (0.0-1.8) 11/26/17 03: Lymph # 1.3 K/mm3 (1.2-5.4) 11/26/17 03: [place] # 0.8 K/mm3 (0.0-0.8) 11/26/17 03: Eos # 0.0 K/mm3 (0.0-0.4) 11/26/17 03:26 Baso # 0.1 K/mm3 (0.0-0.1) 11/26/17 03:26 Add Manual Diff Complete 11/23/17 12:44 Total Counted 100 11/23/17 12:44 Seg Neutrophils % 82.7 % (40.0-70.0) H 11/26/17 03:26 Seg Neuts % (Manual) 71.0 % (40.0-70.0) H 11/23/17 12:44 Band Neutrophils % 3.0 % 11/23/17 12:44 Lymphocytes % (Manual) 18.0 % (13.4-35.0) 11/23/17 12:44 Reactive Lymphs % (Man) 0 % 11/23/17 12:44 Monocytes % (Manual) 8.0 % (0.0-7.3) H 11/23/17 12:44 Eosinophils % (Manual) 0 % (0.0-4.3) 11/23/17 12:44 Basophils % (Manual) 0 % (0.0-1.8) 11/23/17 12:44 Metamyelocytes % 0 % 11/23/17 12:44 Myelocytes % 0 % 11/23/17 12:44 Promyelocytes % 0 % 11/23/17 12:44 Blast Cells % 0 % 11/23/17 12:44 Nucleated RBC % 6.0 % (0.0-0.9) H 11/23/17 12:44 Seg Neutrophils # 10.5 K/mm3 (1.8-7.7) H 11/26/17 03:26 Seg Neutrophils # Man 9.2 K/mm3 (1.8-7.7) H 11/23/17 12:44 Band Neutrophils # 0.4 K/mm3 11/23/17 12:44 Lymphocytes # (Manual) 2.3 K/mm3 (1.2-5.4) 11/23/17 12:44 Abs React Lymphs (Man) 0.0 K/mm3 11/23/17 12:44 Monocytes # (Manual) 1.0 K/mm3 (0.0-0.8) H 11/23/17 12:44 Eosinophils # (Manual) 0.0 K/mm3 (0.0-0.4) 11/23/17 12:44 Basophils # (Manual) 0.0 K/mm3 (0.0-0.1) 11/23/17 12:44 Metamyelocytes # 0.0 K/mm3 11/23/17 12:44 Myelocytes # 0.0 K/mm3 11/23/17 12:44 Promyelocytes # 0.0 K/mm3 11/23/17 12:44 Blast Cells # 0.0 K/mm3 11/23/17 12:44 WBC Morphology Not Reportable 11/23/17 12:44 Hypersegmented Neuts Not Reportable 11/23/17 12:44 Hyposegmented Neuts Not Reportable 11/23/17 12:44 Hypogranular Neuts Not Reportable 11/23/17 12:44 Smudge Cells Not Reportable 11/23/17 12:44 Toxic Granulation Not Reportable 11/23/17 12:44 Toxic Vacuolation Not Reportable 11/23/17 12:44 Dohle Bodies Not Reportable 11/23/17 12:44 Pelger-Huet Anomaly Not Reportable 11/23/17 12:44 Erika Rods Not Reportable 11/23/17 12:44 Platelet Estimate Consistent w auto 11/23/17 12:44 Clumped Platelets Not Reportable 11/23/17 12:44 Plt Clumps, EDTA Not Reportable 11/23/17 12:44 Large Platelets Not Reportable 11/23/17 12:44 Giant Platelets Not Reportable 11/23/17 12:44 Platelet Satelliting Not Reportable 11/23/17 12:44 Plt Morphology Comment Not Reportable 11/23/17 12:44 RBC Morphology Not Reportable 11/23/17 12:44 Dimorphic RBCs Not Reportable 11/23/17 12:44 Polychromasia Rare 11/23/17 12:44 Hypochromasia Not Reportable 11/23/17 12:44 Poikilocytosis Not Reportable 11/23/17 12:44 Anisocytosis 1+ 11/23/17 12:44 Microcytosis Not Reportable 11/23/17 12:44 Macrocytosis 1+ 11/23/17 12:44 Spherocytes Not Reportable 11/23/17 12:44 Pappenheimer Bodies Not Reportable 11/23/17 12:44 Sickle Cells Not Reportable 11/23/17 12:44 Target Cells Not Reportable 11/23/17 12:44 Tear Drop Cells Not Reportable 11/23/17 12:44 Ovalocytes Not Reportable 11/23/17 12:44 Helmet Cells Not Reportable 11/23/17 12:44 [place] Bodies Not Reportable 11/23/17 12:44 [place] Rings Not Reportable 11/23/17 12:44 Valentino Cells Not Reportable 11/23/17 12:44 Bite Cells Not Reportable 11/23/17 12:44 Crenated Cell Not Reportable 11/23/17 12:44 Elliptocytes Not Reportable 11/23/17 12:44 Acanthocytes (Spur) Not Reportable 11/23/17 12:44 Rouleaux Not Reportable 11/23/17 12:44 Hemoglobin C Crystals Not Reportable 11/23/17 12:44 Schistocytes Not Reportable 11/23/17 12:44 Malaria parasites Not Reportable 11/23/17 12:44 Brett Bodies Not Reportable 11/23/17 12:44 Hem Pathologist Commnt No 11/23/17 12:44 PT 15.3 Sec. (12.2-14.9) H 11/23/17 12:44 INR 1.15 (0.87-1.13) H 11/23/17 12:44 APTT 33.9 Sec. (24.2-36.6) 11/23/17 12:44 D-Dimer 1977.37 ng/mlDDU (0-234) H 11/24/17 14:44 POC ABG pH 7.475 (7.35-7.45) H 11/26/17 03:52 POC ABG pCO2 41.9 (35-45) 11/26/17 03:52 POC ABG pO2 71 (80-105) L 11/26/17 03:52 POC ABG HCO3 30.9 11/26/17 03:52 POC ABG Total CO2 32 11/26/17 03:52 POC ABG O2 Sat 95 11/26/17 03:52 POC ABG Base Excess 7 11/26/17 03:52 FiO2 45 % 11/26/17 03:52 Sodium 150 mmol/L (137-145) H 11/26/17 03:26 Potassium 3.3 mmol/L (3.6-5.0) L 11/26/17 03:26 Chloride 106.9 mmol/L (98-107) 11/26/17 03:26 Carbon Dioxide 28 mmol/L (22-30) D 11/26/17 03:26 Anion Gap 18 mmol/L 11/26/17 03:26 BUN 22 mg/dL (7-17) H 11/26/17 03:26 Creatinine 1.7 mg/dL (0.7-1.2) H 11/26/17 03:26 Estimated GFR 31 ml/min 11/26/17 03:26 BUN/Creatinine Ratio 13 % 11/26/17 03:26 Glucose 107 mg/dL (65-100) H 11/26/17 03:26 POC Glucose 105 (70-105) 11/26/17 05:36 Lactic Acid 2.00 mmol/L (0.7-2.0) 11/25/17 10:25 Calcium 7.5 mg/dL (8.4-10.2) L 11/26/17 03:26 Total Bilirubin 0.60 mg/dL (0.1-1.2) 11/25/17 03:02 Direct Bilirubin 0.2 mg/dL (0-0.2) 11/25/17 03:02 Indirect Bilirubin 0.4 mg/dL 11/25/17 03:02 AST 300 units/L (5-40) H 11/25/17 03:02 ALT 561 units/L (7-56) H 11/25/17 03:02 Alkaline Phosphatase 54 units/L (35-129) 11/25/17 03:02 Troponin T < 0.010 ng/mL (0.00-0.029) 11/23/17 12:44 C-Reactive Protein 9.20 mg/dL (0.00-1.30) H 11/24/17 13:29 Total Protein 4.5 g/dL (6.3-8.2) L 11/25/17 03:02 Albumin 2.4 g/dL (3.9-5) L 11/25/17 03:02 Albumin/Globulin Ratio 1.1 % 11/25/17 03:02 Urine Color Yellow (Yellow) 11/23/17 13:39 Urine Turbidity Clear (Clear) 11/23/17 13:39 Urine pH 5.0 (5.0-7.0) 11/23/17 13:39 Ur Specific [place] 1.020 (1.003-1.030) 11/23/17 13:39 Urine Protein 30 mg/dl mg/dL (Negative) 11/23/17 13:39 Urine Glucose (UA) Neg mg/dL (Negative) 11/23/17 13:39 Urine Ketones Neg mg/dL (Negative) 11/23/17 13:39 Urine Blood Neg (Negative) 11/23/17 13:39 Urine Nitrite Neg (Negative) 11/23/17 13:39 Urine Bilirubin Neg (Negative) 11/23/17 13:39 Urine Urobilinogen 2.0 mg/dL (<2.0) 11/23/17 13:39 Ur Leukocyte Esterase Neg (Negative) 11/23/17 13:39 Urine WBC (Auto) 5.0 /HPF (0.0-6.0) 11/23/17 13:39 Urine RBC (Auto) 1.0 /HPF (0.0-6.0) 11/23/17 13:39 U Epithel Cells (Auto) 1.0 /HPF (0-13.0) 11/23/17 13:39 Urine Bacteria (Auto) 1+ /HPF (Negative) 11/23/17 13:39 Hyaline Casts 11 /LPF 11/23/17 13:39 Urine Mucus 2+ /HPF 11/23/17 13:39 Salicylates < 0.3 mg/dL (2.8-20.0) L 11/23/17 15:54 Urine Opiates Screen Presumptive positive 11/23/17 13:39 Urine Methadone Screen Presumptive negative 11/23/17 13:39 Acetaminophen < 15.0 ug/mL (10.0-30.0) 11/23/17 15:54 Ur Barbiturates Screen Presumptive negative 11/23/17 13:39 Ur Phencyclidine Scrn Presumptive negative 11/23/17 13:39 Ur Amphetamines Screen Presumptive negative 11/23/17 13:39 U Benzodiazepines Scrn Presumptive positive 11/23/17 13:39 Urine Cocaine Screen Presumptive negative 11/23/17 13:39 U Marijuana (THC) Screen Presumptive negative 11/23/17 13:39 Drugs of Abuse Note Disclamer 11/23/17 13:39
--- NOTE | 2017-11-26 12:18 | Progress Note ---
Assessment and Plan Acute hypoxemic respiratory failure, on mechanical ventilatory support. Status post cardiac arrest. Likely aspiration pneumonia. Acute encephalopathy with myoclonic jerks at this point, but with evidence of brainstem function. Acute exacerbation of chronic obstructive pulmonary disease. Tobacco use disorder. Obesity. Hypertension. History of alcohol abuse - continue full MVS acutely - Encephalopathy w/up ongoing - continue benadryl and double dose PPI for angioedema type toungue swelling - continue aspiration precautions / address VAP bundle daily - continue bronchodilators and pulmonary hygiene per RT - continue to wean oxygen for [place] > 90% - NGT to LIS for now - begin reglan - get KUB re: high residuals and reduced bowel sounds - continue GI & VTE prophylaxis - continue empiric AB's and follow C&S - continue other care per attending/ other consultants ....remains critically ill on MVS and at high risk for further deterioration including ..35' CCT Subjective Date of service: 11/26/17 Principal diagnosis: Acute Hypoxemic Resp Failure; S/P Cardiac Arrest; Acute Encephalopathy Interval history: Patient is seen today for: Acute Hypoxemic Resp Failure; S/P Cardiac Arrest; Acute Encephalopathy Seen and examined at bedside; 24hour events reviewed; nursing and respiratory care staff consulted; no adverse overnight events reported to me; reamins on MVS ; AMS is persistent; neurology evaluation ongoing; slowly weaning oxygen; no gross bleeding; no gross grand-mal seizure activity Objective Vital Signs - 12hr 11/26/17 11/26/17 11/26/17 00:20 00:30 00:45 Temperature Pulse Rate 98 H 100 H Pulse Rate [ Anterior Bilateral Throughout] Pulse Rate [ Left Radial] Respiratory 14 18 21 Rate Respiratory Rate [Anterior Bilateral Throughout] Blood Pressure 194/88 182/92 O2 Sat by Pulse 96 92 91 Oximetry 11/26/17 11/26/17 11/26/17 01:00 01:15 01:30 Temperature Pulse Rate 98 H 98 H 98 H Pulse Rate [ Anterior Bilateral Throughout] Pulse Rate [ Left Radial] Respiratory 21 14 24 Rate Respiratory Rate [Anterior Bilateral Throughout] Blood Pressure 175/86 175/83 177/80 O2 Sat by Pulse 93 92 91 Oximetry 11/26/17 11/26/17 11/26/17 01:45 01:50 01:58 Temperature Pulse Rate 99 H Pulse Rate [ 100 H 99 H Anterior Bilateral Throughout] Pulse Rate [ Left Radial] Respiratory 15 Rate Respiratory 14 16 Rate [Anterior Bilateral Throughout] Blood Pressure 183/84 O2 Sat by Pulse 90 Oximetry 11/26/17 11/26/17 11/26/17 02:00 02:15 02:30 Temperature Pulse Rate 100 H 99 H 99 H Pulse Rate [ Anterior Bilateral Throughout] Pulse Rate [ Left Radial] Respiratory 17 21 17 Rate Respiratory Rate [Anterior Bilateral Throughout] Blood Pressure 178/78 172/80 173/80 O2 Sat by Pulse 91 92 92 Oximetry 11/26/17 11/26/17 11/26/17 02:45 03:00 03:15 Temperature Pulse Rate 99 H 99 H 99 H Pulse Rate [ Anterior Bilateral Throughout] Pulse Rate [ Left Radial] Respiratory 21 13 13 Rate Respiratory Rate [Anterior Bilateral Throughout] Blood Pressure 170/84 174/81 171/81 O2 Sat by Pulse 92 92 91 Oximetry 11/26/17 11/26/17 11/26/17 03:30 03:38 03:45 Temperature Pulse Rate 99 H 100 H 98 H Pulse Rate [ Anterior Bilateral Throughout] Pulse Rate [ Left Radial] Respiratory 14 14 Rate Respiratory Rate [Anterior Bilateral Throughout] Blood Pressure 181/84 181/84 195/90 O2 Sat by Pulse 90 94 93 Oximetry 11/26/17 11/26/17 11/26/17 03:46 04:00 04:15 Temperature 100.4 F H Pulse Rate 100 H 99 H Pulse Rate [ Anterior Bilateral Throughout] Pulse Rate [ Left Radial] Respiratory 14 14 Rate Respiratory Rate [Anterior Bilateral Throughout] Blood Pressure 183/83 182/80 O2 Sat by Pulse 89 89 Oximetry 11/26/17 11/26/17 11/26/17 04:30 04:45 05:00 Temperature Pulse Rate 100 H 100 H 100 H Pulse Rate [ Anterior Bilateral Throughout] Pulse Rate [ 103 H Left Radial] Respiratory 15 15 15 Rate Respiratory Rate [Anterior Bilateral Throughout] Blood Pressure 194/82 187/83 191/86 O2 Sat by Pulse 91 92 90 Oximetry 11/26/17 11/26/17 11/26/17 05:15 05:30 05:45 Temperature Pulse Rate 102 H 101 H 102 H Pulse Rate [ Anterior Bilateral Throughout] Pulse Rate [ Left Radial] Respiratory 15 19 10 L Rate Respiratory Rate [Anterior Bilateral Throughout] Blood Pressure 189/87 186/84 191/86 O2 Sat by Pulse 88 89 88 Oximetry 11/26/17 11/26/17 11/26/17 06:00 06:15 06:30 Temperature Pulse Rate 103 H 104 H 107 H Pulse Rate [ Anterior Bilateral Throughout] Pulse Rate [ Left Radial] Respiratory 14 19 21 Rate Respiratory Rate [Anterior Bilateral Throughout] Blood Pressure 193/88 200/94 204/97 O2 Sat by Pulse 90 89 89 Oximetry 11/26/17 11/26/17 11/26/17 06:45 07:00 07:15 Temperature Pulse Rate 107 H 107 H 107 H Pulse Rate [ Anterior Bilateral Throughout] Pulse Rate [ Left Radial] Respiratory 17 17 19 Rate Respiratory Rate [Anterior Bilateral Throughout] Blood Pressure 193/94 194/90 203/94 O2 Sat by Pulse 89 89 87 Oximetry 11/26/17 11/26/17 11/26/17 07:30 07:45 08:00 Temperature 99.9 F H Pulse Rate 109 H 108 H 107 H Pulse Rate [ Anterior Bilateral Throughout] Pulse Rate [ Left Radial] Respiratory 19 22 22 Rate Respiratory Rate [Anterior Bilateral Throughout] Blood Pressure 210/95 196/91 181/88 O2 Sat by Pulse 86 87 87 Oximetry 11/26/17 11/26/17 11/26/17 08:15 08:30 08:45 Temperature Pulse Rate 106 H 104 H 103 H Pulse Rate [ Anterior Bilateral Throughout] Pulse Rate [ Left Radial] Respiratory 20 21 26 H Rate Respiratory Rate [Anterior Bilateral Throughout] Blood Pressure 190/88 188/91 186/88 O2 Sat by Pulse 87 89 89 Oximetry 11/26/17 11/26/17 11/26/17 09:00 09:15 09:30 Temperature Pulse Rate 103 H 102 H 103 H Pulse Rate [ Anterior Bilateral Throughout] Pulse Rate [ Left Radial] Respiratory 28 H 20 30 H Rate Respiratory Rate [Anterior Bilateral Throughout] Blood Pressure 188/91 201/91 201/91 O2 Sat by Pulse 89 90 90 Oximetry 11/26/17 11/26/17 11/26/17 09:45 09:46 10:00 Temperature Pulse Rate 103 H 97 H 100 H Pulse Rate [ Anterior Bilateral Throughout] Pulse Rate [ Left Radial] Respiratory 27 H 12 Rate Respiratory Rate [Anterior Bilateral Throughout] Blood Pressure 200/97 200/97 183/84 O2 Sat by Pulse 93 97 92 Oximetry 11/26/17 11/26/17 11/26/17 10:15 10:30 10:45 Temperature Pulse Rate 101 H 102 H 101 H Pulse Rate [ Anterior Bilateral Throughout] Pulse Rate [ Left Radial] Respiratory 12 12 17 Rate Respiratory Rate [Anterior Bilateral Throughout] Blood Pressure 182/84 193/82 185/83 O2 Sat by Pulse 92 93 91 Oximetry 11/26/17 11/26/17 11/26/17 11:00 11:15 11:30 Temperature Pulse Rate 107 H 106 H 105 H Pulse Rate [ Anterior Bilateral Throughout] Pulse Rate [ Left Radial] Respiratory 16 19 26 H Rate Respiratory Rate [Anterior Bilateral Throughout] Blood Pressure 188/86 192/86 192/91 O2 Sat by Pulse 91 91 90 Oximetry 11/26/17 12:00 Temperature 100.1 F H Pulse Rate Pulse Rate [ Anterior Bilateral Throughout] Pulse Rate [ Left Radial] Respiratory Rate Respiratory Rate [Anterior Bilateral Throughout] Blood Pressure O2 Sat by Pulse Oximetry Constitutional: appears uncomfortable, other (obtunded) Eyes: non-icteric ENT: oropharynx moist Neck: supple, no lymphadenopathy, no JVD, other (no thyromegaly) Effort: mildly labored Ascultation: Bilateral: rhonchi Percussion: Bilateral: not dull Cardiovascular: regular rate and rhythm, other (no rubs or murmurs) Gastrointestinal: hypoactive bowel sounds, soft, non-tender, non-distended, other (no palapble HSM) Integumentary: normal Extremities: no cyanosis, pink and warm, pulses normal, edema Neurologic: pupils equal and round, unable to assess Psychiatric: other (unable to assess) CBC and BMP: 11/30/17 03:48 11/30/17 03:48 ABG, PT/INR, D-dimer: ABG POC ABG pH 7.475 (7.35-7.45) H 11/26/17 03:52 POC ABG pCO2 41.9 (35-45) 11/26/17 03:52 POC ABG pO2 71 (80-105) L 11/26/17 03:52 POC ABG HCO3 30.9 11/26/17 03:52 POC ABG Total CO2 32 11/26/17 03:52 POC ABG O2 Sat 95 11/26/17 03:52 PT/INR, D-dimer PT 15.3 Sec. (12.2-14.9) H 11/23/17 12:44 INR 1.15 (0.87-1.13) H 11/23/17 12:44 D-Dimer 1977.37 ng/mlDDU (0-234) H 11/24/17 14:44 Abnormal lab findings: Abnormal Labs 11/23/17 11/23/17 11/23/17 12:44 12:44 12:44 WBC 13.0 H Hgb Hct 46.1 H MCV 112 H MCH 33 H MCHC 29 L RDW 18.5 H Plt Count Lymph % (Auto) Lymph # [place] # Seg Neutrophils % Seg Neuts % (Manual) 71.0 H Monocytes % (Manual) 8.0 H Nucleated RBC % 6.0 H Seg Neutrophils # Seg Neutrophils # Man 9.2 H Monocytes # (Manual) 1.0 H PT 15.3 H INR 1.15 H D-Dimer POC ABG pH POC ABG pCO2 POC ABG pO2 Sodium Potassium 5.4 H Chloride 85.2 L Carbon Dioxide BUN 19 H Creatinine 1.3 H Glucose 175 H POC Glucose Lactic Acid Calcium AST 310 H ALT 262 H C-Reactive Protein Total Protein 5.7 L Albumin 2.9 L Salicylates 11/23/17 11/23/17 11/23/17 12:44 13:23 15:54 WBC Hgb Hct MCV MCH MCHC RDW Plt Count Lymph % (Auto) Lymph # [place] # Seg Neutrophils % Seg Neuts % (Manual) Monocytes % (Manual) Nucleated RBC % Seg Neutrophils # Seg Neutrophils # Man Monocytes # (Manual) PT INR D-Dimer POC ABG pH 7.035 L POC ABG pCO2 99.1 H POC ABG pO2 343 H Sodium Potassium Chloride Carbon Dioxide BUN Creatinine Glucose POC Glucose Lactic Acid 16.10 H* Calcium AST ALT C-Reactive Protein Total Protein Albumin Salicylates < 0.3 L 11/23/17 11/24/17 11/24/17 16:42 04:03 04:03 WBC 16.8 H Hgb 15.7 H Hct 48.9 H MCV 101 H MCH MCHC RDW 16.5 H Plt Count Lymph % (Auto) 5.2 L Lymph # 0.9 L [place] # 0.9 H Seg Neutrophils % 89.1 H Seg Neuts % (Manual) Monocytes % (Manual) Nucleated RBC % Seg Neutrophils # 14.9 H Seg Neutrophils # Man Monocytes # (Manual) PT INR D-Dimer POC ABG pH POC ABG pCO2 POC ABG pO2 55 L Sodium Potassium Chloride 96.0 L Carbon Dioxide 33 H D BUN 28 H Creatinine 1.5 H Glucose 108 H POC Glucose Lactic Acid Calcium 7.7 L AST 1091 H ALT 986 H C-Reactive Protein Total Protein 5.0 L Albumin 2.8 L Salicylates 11/24/17 11/24/17 11/24/17 05:55 13:29 13:29 WBC Hgb Hct MCV MCH MCHC RDW Plt Count Lymph % (Auto) Lymph # [place] # Seg Neutrophils % Seg Neuts % (Manual) Monocytes % (Manual) Nucleated RBC % Seg Neutrophils # Seg Neutrophils # Man Monocytes # (Manual) PT INR D-Dimer POC ABG pH 7.469 H POC ABG pCO2 52.3 H POC ABG pO2 69 L Sodium Potassium Chloride Carbon Dioxide BUN Creatinine Glucose POC Glucose Lactic Acid 3.20 H* Calcium AST ALT C-Reactive Protein 9.20 H Total Protein Albumin Salicylates 11/24/17 11/24/17 11/25/17 14:44 20:55 01:55 WBC Hgb Hct MCV MCH MCHC RDW Plt Count Lymph % (Auto) Lymph # [place] # Seg Neutrophils % Seg Neuts % (Manual) Monocytes % (Manual) Nucleated RBC % Seg Neutrophils # Seg Neutrophils # Man Monocytes # (Manual) PT INR D-Dimer 1977.37 H POC ABG pH 7.471 H POC ABG pCO2 56.2 H POC ABG pO2 Sodium Potassium Chloride Carbon Dioxide BUN Creatinine Glucose POC Glucose Lactic Acid 3.00 H* Calcium AST ALT C-Reactive Protein Total Protein Albumin Salicylates 11/25/17 11/25/17 11/25/17 03:02 03:02 03:02 WBC 16.0 H Hgb Hct MCV 99 H MCH MCHC RDW 16.0 H Plt Count Lymph % (Auto) 11.6 L Lymph # [place] # 1.0 H Seg Neutrophils % 81.8 H Seg Neuts % (Manual) Monocytes % (Manual) Nucleated RBC % Seg Neutrophils # 13.1 H Seg Neutrophils # Man Monocytes # (Manual) PT INR D-Dimer POC ABG pH POC ABG pCO2 POC ABG pO2 Sodium 148 H Potassium Chloride Carbon Dioxide 35 H BUN 30 H Creatinine 1.9 H Glucose 106 H POC Glucose Lactic Acid 2.90 H* Calcium 7.0 L AST ALT C-Reactive Protein Total Protein Albumin Salicylates 0211/25/17 11/25/17 03:02 03:35 07:15 WBC Hgb Hct MCV MCH MCHC RDW Plt Count Lymph % (Auto) Lymph # [place] # Seg Neutrophils % Seg Neuts % (Manual) Monocytes % (Manual) Nucleated RBC % Seg Neutrophils # Seg Neutrophils # Man Monocytes # (Manual) PT INR D-Dimer POC ABG pH 7.494 H POC ABG pCO2 48.1 H POC ABG pO2 Sodium Potassium Chloride Carbon Dioxide BUN Creatinine Glucose POC Glucose Lactic Acid 2.30 H* Calcium AST 300 H ALT 561 H C-Reactive Protein Total Protein 4.5 L Albumin 2.4 L Salicylates 11/26/17 11/26/17 11/26/17 03:26 03:26 03:52 WBC 12.7 H Hgb 14.9 H Hct 45.9 H MCV 98 H MCH MCHC RDW 16.3 H Plt Count 137 L Lymph % (Auto) 10.0 L Lymph # [place] # Seg Neutrophils % 82.7 H Seg Neuts % (Manual) Monocytes % (Manual) Nucleated RBC % Seg Neutrophils # 10.5 H Seg Neutrophils # Man Monocytes # (Manual) PT INR D-Dimer POC ABG pH 7.475 H POC ABG pCO2 POC ABG pO2 71 L Sodium 150 H Potassium 3.3 L Chloride Carbon Dioxide BUN 22 H Creatinine 1.7 H Glucose 107 H POC Glucose Lactic Acid Calcium 7.5 L AST ALT C-Reactive Protein Total Protein Albumin Salicylates 11/26/17 11:49 WBC Hgb Hct MCV MCH MCHC RDW Plt Count Lymph % (Auto) Lymph # [place] # Seg Neutrophils % Seg Neuts % (Manual) Monocytes % (Manual) Nucleated RBC % Seg Neutrophils # Seg Neutrophils # Man Monocytes # (Manual) PT INR D-Dimer POC ABG pH POC ABG pCO2 POC ABG pO2 Sodium Potassium Chloride Carbon Dioxide BUN Creatinine Glucose POC Glucose 109 H Lactic Acid Calcium AST ALT C-Reactive Protein Total Protein Albumin Salicylates Chest x-ray: image reviewed Allied health notes reviewed: nursing
--- NOTE | 2017-11-26 12:38 | Cat Scan Report ---
CT HEAD WITHOUT CONTRAST: 11/26/17 CLINICAL: Suspected hypoxic ischemic injury. Coma.. TECHNIQUE: 2.5-mm noncontrast scans. COMPARISON:11/23/17 FINDINGS: Motion degrades the quality of the exam but it is still of diagnostic quality.Global gyral swelling with effacement of sulci and loss of the ugarte-white differentiation. This is relatively symmetric in the cerebellum and occipital lobes and somewhat asymmetric in the parietal and frontal lobes where sulci are better preserved in the right frontal and parietal lobes. This edema is more apparent than on the prior exam. In addition, new relatively symmetric large bilateral hypodensities of the nuclei of the globus pallidus, midbrain and medial temporal lobes. There is mass effect but no midline shift. No evidence of hemorrhage. Partial opacification of frontal, ethmoid and maxillary sinuses. Normal orbits and soft tissues. The calvarium and skull base are intact. IMPRESSION: 1. Global cerebral edema with some sparing of right frontal and right parietal lobe. 2. New hypodensities in the bilateral basal ganglia, midbrain and medial temporal lobes which are typical of hypoxic ischemic injury.
[2017-11-26] MEDS: CEPHULAC PO SCH ×2 (13:48→18:56)
[2017-11-26] MEDS: VANCOMYCIN/0.45 NS 1 GM/250 ML 1 GM/250 ML BAG IV SCH (17:29)
[2017-11-26] MEDS: TYLENOL PR PRN ×2 (17:29→23:46)
[2017-11-26] MEDS: MIDAZOLAM 100 MG in NACL 0.9% 80 ML IV SCH (17:30)
[2017-11-26] MEDS: CARDENE 50 MG in NACL 0.9% 250ML 230 ML IV SCH ×2 (17:31→21:59)
[2017-11-27] MEDS: DUONEB *Not for PRN Use IH SCH ×4 (02:42→19:40)
[2017-11-27] MEDS: CEPHULAC PO SCH ×2 (03:05→08:08)
[2017-11-27] MEDS: ZOSYN/NS 4.5GM/100ML 4.5 GM/100 ML VIAL IV SCH ×4 (03:28→18:27)
--- NOTE | 2017-11-27 04:54 | XRay Report ---
FINAL REPORT EXAM: XR CHEST 1V AP HISTORY: follow up respiratory failure TECHNIQUE: AP portable view(s) of the chest obtained. PRIORS: None. FINDINGS: Endotracheal tube terminates approximately 5 cm from the barbara. Enteric tube close is below the diaphragm and off of the inferior field of view. No pneumothorax. Ill-defined left greater than right basilar opacities. No acute skeletal finding. IMPRESSION: Satisfactory appearance of patient's support apparatus without pneumothorax. Ill-defined left greater than right basilar opacities.
[2017-11-27 04:57] LABS: Basophils % (Auto) 0.4 % (0.0-1.8); Eosinophils % (Auto) 0.1 % (0.0-4.3); Hematocrit 49.8 % (30.3-42.9); Hemoglobin 15.7 gm/dl (10.1-14.3); Lymphocytes # (Auto) 0.9 K/mm3 (1.2-5.4); Lymphocytes % (Auto) 7.6 % (13.4-35.0); Mean Corpuscular HGB Conc 32 % (30-34); Mean Corpuscular Hemoglobin 31 pg (28-32); Mean Corpuscular Volume 100 fl (79-97); Monocytes % (Auto) 8.7 % (0.0-7.3); Red Cell Distribution Width 16.4 % (13.2-15.2)
[2017-11-27 05:09] LABS: Calcium 7.4 mg/dL (8.4-10.2)
[2017-11-27 05:23] LABS: Platelet Count 105 K/mm3 (140-440)
[2017-11-27] MEDS: REGLAN IV SCH ×4 (05:31→22:13)
[2017-11-27] MEDS: HEPARIN SUB-Q SCH ×3 (05:54→22:14)
[2017-11-27] MEDS: KEPPRA IV SCH ×4 (08:08→23:46)
[2017-11-27] MEDS: D5W IV SCH ×4 (08:08→23:46)
[2017-11-27] MEDS: BENADRYL IV SCH ×2 (10:04→22:14)
[2017-11-27] MEDS: PEPCID IV SCH ×2 (10:04→22:14)
[2017-11-27] MEDS: TYLENOL PR PRN (10:37)
--- NOTE | 2017-11-27 12:35 | Consultation ---
History of Present Illness - Reason for Consult Consult date: 11/27/17 acute renal failure, hypernatremia Requesting physician: HARVEY BERNAL - History of Present Illness This 56-year-old right handed (per son) white female was admitted yesterday having last been normal 6 AM yesterday morning according to her roommate (per ER notes here). Her son states she may have been down for several hours before found again. EMS found her to be cold, pulseless and in asystole area they were unable to intubate her but eventually got accompanied to be in. They have difficulty getting an IV established until just prior to arriving at the ER and at that time she got 1 dose of epinephrine though was still pulseless and unresponsive at the ER with emesis filling the Combitube. Pupils were stated to be fixed and dilated with no withdrawal to pain. She was then intubated. Now with Na of 155 and cr of 1.5 with anoxia and possible brain Past History Past Medical History: COPD Social history: single, smoking (both electronic cigarettes and some tobacco per her son is likely), alcohol abuse (unknown but has a history of this per her son), IV drug use (her son thinks this is correct in the distant past), other (occasional use of marijuana still her son thinks) Family history: hypertension (maternal side according to her son), other ( unknown if strokes or epilepsy) Medications and Allergies Allergies Allergy/AdvReac Type Severity Reaction Status Date / Time No Known Allergies Allergy Unverified 11/23/17 13:20 Home Medications Medication Instructions Recorded Confirmed Last Taken Type Unobtainable 11/23/17 11/23/17 Unknown History Active Meds: Active Medications Acetaminophen (Tylenol) 650 mg UT Q6H PRN PRN Reason: Pain, Mild (1-3) Last Admin: 11/27/17 10:37 Dose: 650 mg Al Hydrox/Mg Hydrox/Simethicone (Alum-Mag Hydrox-Simeth 735-321-80cs/5ml) 30 ml PO Q4H PRN PRN Reason: Indigestion Albuterol/Ipratropium (Duoneb *Not For Prn Use*) 1 ampul IH Q6HRT [facility] Last Admin: 11/27/17 08:50 Dose: 1 ampul Lipase/Protease/Amylase (Cande Wilson 10,500 Unit) 1 each FEEDTUBE PRN PRN PRN Reason: For Clogged Feeding Tube Bisacodyl (Dulcolax) 10 mg UT QDAY PRN PRN Reason: constipation unrelieved by MOM Diphenhydramine HCl (Benadryl) 25 mg IV Q12HR [facility] Last Admin: 11/27/17 10:04 Dose: 25 mg Famotidine (Pepcid) 20 mg IV BID [facility] Last Admin: 11/27/17 10:04 Dose: 20 mg Heparin Sodium (Porcine) (Heparin) 5,000 unit SUB-Q Q8HR [facility] Last Admin: 11/27/17 05:54 Dose: 5,000 unit Hydromorphone HCl (Dilaudid) 1 mg IV Q3H PRN PRN Reason: Pain , Severe (7-10) Last Admin: 11/24/17 02:23 Dose: 1 mg Hydrophilic Ointment (Vaseline Lip Therapy) 1 applic TP Q2HR PRN PRN Reason: Dry Lips Piperacillin Sod/Tazobactam Sod (Zosyn/Ns 4.5gm/100ml) 4.5 gm in 100 mls @ 200 mls/hr IV Q8H BERTO PRN Reason: Protocol Last Admin: 11/27/17 12:25 Dose: Not Given Propofol (Diprivan 10 Mg/Ml) 1,000 mg in 100 mls @ 1.905 mls/hr IV TITR BERTO; 5 MCG/KG/MIN PRN Reason: Protocol Last Admin: 11/25/17 22:10 Dose: 10 mcg/kg/min, 3.81 mls/hr Vancomycin HCl (Vancomycin/0.45 Ns 1 Gm/250 Ml) 1 gm in 250 mls @ 167.007 mls/ hr IV Q24H [facility] Last Admin: 11/26/17 17:29 Dose: 167 mls/hr Levetiracetam 500 mg/ Dextrose 55 mls @ 200 mls/hr IV Q6HR [facility] Last Admin: 11/27/17 08:08 Dose: Not Given Midazolam HCl 100 mg/ Sodium (Chloride) 100 mls @ 2 mls/hr IV TITR BERTO; 2 MG/HR PRN Reason: Protocol Last Admin: 11/26/17 17:30 Dose: 2 mg/hr, 2 mls/hr Nicardipine HCl 50 mg/ Sodium (Chloride) 250 mls @ 25 mls/hr IV TITR BERTO; 5 MG/ HR PRN Reason: Protocol Last Titration: 11/27/17 08:45 Dose: Infused Potassium Chloride 10 meq/ (Dextrose) 1,005 mls @ 125 mls/hr IV DIRECT BERTO Lorazepam (Ativan) 2 mg IV Q2H PRN PRN Reason: SEIZURES/AGITATION Last Admin: 11/26/17 05:08 Dose: 2 mg Magnesium Hydroxide (Milk Of Magnesia) 30 ml PO Q4H PRN PRN Reason: Constipation Metoclopramide HCl (Reglan) 10 mg IV Q8HR [facility] Last Admin: 11/27/17 06:48 Dose: Not Given Morphine Sulfate (Morphine) 2 mg IV Q4H PRN PRN Reason: Pain, Moderate (4-6) Multi-Ingred Cream/Lotion/Oil/Oint (Artificial Tears Ophth Oint) 1 applic OU Q4HR PRN PRN Reason: Dry Eye(s) Ondansetron HCl (Zofran) 4 mg IV Q3H PRN PRN Reason: N/V unrelieved by Reglan Simple Syrup (Simple Syrup) 15 ml FEEDTUBE PRN PRN PRN Reason: Hypoglycemia Simple Syrup (Simple Syrup) 30 ml FEEDTUBE PRN PRN PRN Reason: Hypoglycemia Sodium Bicarbonate (Sodium Bicarbonate) 325 mg FEEDTUBE PRN PRN PRN Reason: For Clogged Feeding Tube Sodium Chloride (Nacl 0.9% 500 Ml) 1 ml IV DIRECT BERTO Vancomycin HCl (Vancomycin Pharmacy To Dose) 1 each IV PKCONSULT BERTO PRN Reason: Protocol Review of Systems ROS unobtainable: due to endotracheal tube, due to mental status Exam - Vital Signs Vital signs: Vital Signs Pulse Pulse Ox 100 H 95 11/23/17 12:25 11/23/17 12:25 - Physical Exam Narrative exam: General Appearance: well developed well nourished (per BMI) late 50s white female, intubated HEENT: atraumatic, normocephalic; no bruits, 2+ Aj without soreness or induration or enlargement, sclerae nonicteric. Oropharynx pink and moist. Neck: supple, no bruits. Heart: no murmur or extra sounds. Extremities: no clubbing, cyanosis or edema. No posterior tibial or dorsalis pedis pulses palpable on either side. Results - Lab Results 11/27/17 04:22 11/27/17 04:22 Most recent lab results Calcium 7.4 mg/dL (8.4-10.2) L 11/27/17 04:22 Assessment and Plan Impression: * Hypernatremia * TAMARA * S/P cardiac arress * Anoxia * Acute resp failure Plan: * add d5w today and free H20 * rule out central diabetes insipidus * daily lytes * ua noted * neuro note reviewed, poor prognosis, ? brain
--- NOTE | 2017-11-27 13:06 | Progress Note ---
History Interval history: S/p cardiopulmonary arrest. Etiology likely secondary to respiratory arrest. Pt. with probable anoxic encephalopathy as well. Sepsis. Pt. meets criteria with tachycardia, leukocytosis, elevated lactate and prob dx of ? aspiration pneumonia. Cont. IV abx, f/u cx results. Lactate 16! on admission. Patient with persistent fevers. Fevers may be related to sepsis versus neuro-mediated. ID consultation. Anoxic encephalopathy. Neuro following. Evaluate CT scan today to rule out cerebral edema. Hypernatremia. Consider DDAVP. Patient may be exhibiting central DI. We will defer to nephrology. Continue D5W and free water. Possible complex partial seizures with secondary generalization. Consider oxcarbamazepine or Versed if truncal jerks continue Acute hypercapneic resp failure. Pulm following. Cont. vent per Pulm. ARF. Etiology prob sec to TAMARA from sepsis/ATN. Renal following Elevated LFTs. Etiology prob secondary to ischemic hepatitis from sepsis/ATN. Check hepatitis panel. Consider GI consult Poor prognosis The high probability of a clinically significant, sudden or life threatening deterioration of the [cardiac, pulmonary, neuro and GI] system(s) required my full and direct attention, intervention and personal management. The aggregate critical care time was [31] minutes. This time is in addition to time spent performing reported procedures but includes the following: [x] Data Review and interpretation [x] Patient assessment and monitoring of vital signs [x] Documentation [x] Medication orders and management Hospitalist Physical - Constitutional Vitals: Temp Pulse Resp BP Pulse Ox 102.2 F H 92 H 12 122/67 97 11/27/17 11:50 11/27/17 12:45 11/27/17 12:45 11/27/17 12:45 11/27/17 12:45 Results - Labs CBC & Chem 7: 11/27/17 04:22 11/27/17 04:22 Labs: Laboratory Last Values WBC 11.7 K/mm3 (4.5-11.0) H 11/27/17 04:22 RBC 5.00 M/mm3 (3.65-5.03) 11/27/17 04:22 Hgb 15.7 gm/dl (10.1-14.3) H 11/27/17 04:22 Hct 49.8 % (30.3-42.9) H 11/27/17 04:22 MCV 100 fl (79-97) H 11/27/17 04:22 MCH 31 pg (28-32) 11/27/17 04:22 MCHC 32 % (30-34) 11/27/17 04:22 RDW 16.4 % (13.2-15.2) H 11/27/17 04:22 Plt Count 105 K/mm3 (140-440) L 11/27/17 04:22 Lymph % (Auto) 7.6 % (13.4-35.0) L 11/27/17 04:22 [place] % (Auto) 8.7 % (0.0-7.3) H 11/27/17 04:22 Eos % (Auto) 0.1 % (0.0-4.3) 11/27/17 04:22 Baso % (Auto) 0.4 % (0.0-1.8) 11/27/17 04:22 Lymph # 0.9 K/mm3 (1.2-5.4) L 11/27/17 04:22 [place] # 1.0 K/mm3 (0.0-0.8) H 11/27/17 04:22 Eos # 0.0 K/mm3 (0.0-0.4) 11/27/17 04:22 Baso # 0.0 K/mm3 (0.0-0.1) 11/27/17 04:22 Add Manual Diff Complete 11/23/17 12:44 Total Counted 100 11/23/17 12:44 Seg Neutrophils % 83.2 % (40.0-70.0) H 11/27/17 04:22 Seg Neuts % (Manual) 71.0 % (40.0-70.0) H 11/23/17 12:44 Band Neutrophils % 3.0 % 11/23/17 12:44 Lymphocytes % (Manual) 18.0 % (13.4-35.0) 11/23/17 12:44 Reactive Lymphs % (Man) 0 % 11/23/17 12:44 Monocytes % (Manual) 8.0 % (0.0-7.3) H 11/23/17 12:44 Eosinophils % (Manual) 0 % (0.0-4.3) 11/23/17 12:44 Basophils % (Manual) 0 % (0.0-1.8) 11/23/17 12:44 Metamyelocytes % 0 % 11/23/17 12:44 Myelocytes % 0 % 11/23/17 12:44 Promyelocytes % 0 % 11/23/17 12:44 Blast Cells % 0 % 11/23/17 12:44 Nucleated RBC % 6.0 % (0.0-0.9) H 11/23/17 12:44 Seg Neutrophils # 9.7 K/mm3 (1.8-7.7) H 11/27/17 04:22 Seg Neutrophils # Man 9.2 K/mm3 (1.8-7.7) H 11/23/17 12:44 Band Neutrophils # 0.4 K/mm3 11/23/17 12:44 Lymphocytes # (Manual) 2.3 K/mm3 (1.2-5.4) 11/23/17 12:44 Abs React Lymphs (Man) 0.0 K/mm3 11/23/17 12:44 Monocytes # (Manual) 1.0 K/mm3 (0.0-0.8) H 11/23/17 12:44 Eosinophils # (Manual) 0.0 K/mm3 (0.0-0.4) 11/23/17 12:44 Basophils # (Manual) 0.0 K/mm3 (0.0-0.1) 11/23/17 12:44 Metamyelocytes # 0.0 K/mm3 11/23/17 12:44 Myelocytes # 0.0 K/mm3 11/23/17 12:44 Promyelocytes # 0.0 K/mm3 11/23/17 12:44 Blast Cells # 0.0 K/mm3 11/23/17 12:44 WBC Morphology Not Reportable 11/23/17 12:44 Hypersegmented Neuts Not Reportable 11/23/17 12:44 Hyposegmented Neuts Not Reportable 11/23/17 12:44 Hypogranular Neuts Not Reportable 11/23/17 12:44 Smudge Cells Not Reportable 11/23/17 12:44 Toxic Granulation Not Reportable 11/23/17 12:44 Toxic Vacuolation Not Reportable 11/23/17 12:44 Dohle Bodies Not Reportable 11/23/17 12:44 Pelger-Huet Anomaly Not Reportable 11/23/17 12:44 Erika Rods Not Reportable 11/23/17 12:44 Platelet Estimate Consistent w auto 11/23/17 12:44 Clumped Platelets Not Reportable 11/23/17 12:44 Plt Clumps, EDTA Not Reportable 11/23/17 12:44 Large Platelets Not Reportable 11/23/17 12:44 Giant Platelets Not Reportable 11/23/17 12:44 Platelet Satelliting Not Reportable 11/23/17 12:44 Plt Morphology Comment Not Reportable 11/23/17 12:44 RBC Morphology Not Reportable 11/23/17 12:44 Dimorphic RBCs Not Reportable 11/23/17 12:44 Polychromasia Rare 11/23/17 12:44 Hypochromasia Not Reportable 11/23/17 12:44 Poikilocytosis Not Reportable 11/23/17 12:44 Anisocytosis 1+ 11/23/17 12:44 Microcytosis Not Reportable 11/23/17 12:44 Macrocytosis 1+ 11/23/17 12:44 Spherocytes Not Reportable 11/23/17 12:44 Pappenheimer Bodies Not Reportable 11/23/17 12:44 Sickle Cells Not Reportable 11/23/17 12:44 Target Cells Not Reportable 11/23/17 12:44 Tear Drop Cells Not Reportable 11/23/17 12:44 Ovalocytes Not Reportable 11/23/17 12:44 Helmet Cells Not Reportable 11/23/17 12:44 Mart-Corazon Bodies Not Reportable 11/23/17 12:44 [place] Rings Not Reportable 11/23/17 12:44 Valentino Cells Not Reportable 11/23/17 12:44 Bite Cells Not Reportable 11/23/17 12:44 Crenated Cell Not Reportable 11/23/17 12:44 Elliptocytes Not Reportable 11/23/17 12:44 Acanthocytes (Spur) Not Reportable 11/23/17 12:44 Rouleaux Not Reportable 11/23/17 12:44 Hemoglobin C Crystals Not Reportable 11/23/17 12:44 Schistocytes Not Reportable 11/23/17 12:44 Malaria parasites Not Reportable 11/23/17 12:44 Brett Bodies Not Reportable 11/23/17 12:44 Hem Pathologist Commnt No 11/23/17 12:44 PT 15.3 Sec. (12.2-14.9) H 11/23/17 12:44 INR 1.15 (0.87-1.13) H 11/23/17 12:44 APTT 33.9 Sec. (24.2-36.6) 11/23/17 12:44 D-Dimer 1977.37 ng/mlDDU (0-234) H 11/24/17 14:44 POC ABG pH 7.372 (7.35-7.45) 11/27/17 04:53 POC ABG pCO2 53.1 (35-45) H 11/27/17 04:53 POC ABG pO2 70 (80-105) L 11/27/17 04:53 POC ABG HCO3 30.8 11/27/17 04:53 POC ABG Total CO2 32 11/27/17 04:53 POC ABG O2 Sat 93 11/27/17 04:53 POC ABG Base Excess 6 11/27/17 04:53 FiO2 70 % 11/27/17 04:53 Sodium 155 mmol/L (137-145) H 11/27/17 04:22 Potassium 3.6 mmol/L (3.6-5.0) 11/27/17 04:22 Chloride 113.1 mmol/L (98-107) H 11/27/17 04:22 Carbon Dioxide 28 mmol/L (22-30) 11/27/17 04:22 Anion Gap 18 mmol/L 11/27/17 04:22 BUN 17 mg/dL (7-17) 11/27/17 04:22 Creatinine 1.5 mg/dL (0.7-1.2) H 11/27/17 04:22 Estimated GFR 36 ml/min 11/27/17 04:22 BUN/Creatinine Ratio 11 % 11/27/17 04:22 Glucose 128 mg/dL (65-100) H 11/27/17 04:22 POC Glucose 120 (70-105) H 11/27/17 05:34 Lactic Acid 2.00 mmol/L (0.7-2.0) 11/25/17 10:25 Calcium 7.4 mg/dL (8.4-10.2) L 11/27/17 04:22 Total Bilirubin 0.60 mg/dL (0.1-1.2) 11/25/17 03:02 Direct Bilirubin 0.2 mg/dL (0-0.2) 11/25/17 03:02 Indirect Bilirubin 0.4 mg/dL 11/25/17 03:02 AST 300 units/L (5-40) H 11/25/17 03:02 ALT 561 units/L (7-56) H 11/25/17 03:02 Alkaline Phosphatase 54 units/L (35-129) 11/25/17 03:02 Troponin T < 0.010 ng/mL (0.00-0.029) 11/23/17 12:44 C-Reactive Protein 9.20 mg/dL (0.00-1.30) H 11/24/17 13:29 Total Protein 4.5 g/dL (6.3-8.2) L 11/25/17 03:02 Albumin 2.4 g/dL (3.9-5) L 11/25/17 03:02 Albumin/Globulin Ratio 1.1 % 11/25/17 03:02 Urine Color Yellow (Yellow) 11/23/17 13:39 Urine Turbidity Clear (Clear) 11/23/17 13:39 Urine pH 5.0 (5.0-7.0) 11/23/17 13:39 Ur Specific [place] 1.020 (1.003-1.030) 11/23/17 13:39 Urine Protein 30 mg/dl mg/dL (Negative) 11/23/17 13:39 Urine Glucose (UA) Neg mg/dL (Negative) 11/23/17 13:39 Urine Ketones Neg mg/dL (Negative) 11/23/17 13:39 Urine Blood Neg (Negative) 11/23/17 13:39 Urine Nitrite Neg (Negative) 11/23/17 13:39 Urine Bilirubin Neg (Negative) 11/23/17 13:39 Urine Urobilinogen 2.0 mg/dL (<2.0) 11/23/17 13:39 Ur Leukocyte Esterase Neg (Negative) 11/23/17 13:39 Urine WBC (Auto) 5.0 /HPF (0.0-6.0) 11/23/17 13:39 Urine RBC (Auto) 1.0 /HPF (0.0-6.0) 11/23/17 13:39 U Epithel Cells (Auto) 1.0 /HPF (0-13.0) 11/23/17 13:39 Urine Bacteria (Auto) 1+ /HPF (Negative) 11/23/17 13:39 Hyaline Casts 11 /LPF 11/23/17 13:39 Urine Mucus 2+ /HPF 11/23/17 13:39 Salicylates < 0.3 mg/dL (2.8-20.0) L 11/23/17 15:54 Urine Opiates Screen Presumptive positive 11/23/17 13:39 Urine Methadone Screen Presumptive negative 11/23/17 13:39 Acetaminophen < 15.0 ug/mL (10.0-30.0) 11/23/17 15:54 Ur Barbiturates Screen Presumptive negative 11/23/17 13:39 Ur Phencyclidine Scrn Presumptive negative 11/23/17 13:39 Ur Amphetamines Screen Presumptive negative 11/23/17 13:39 U Benzodiazepines Scrn Presumptive positive 11/23/17 13:39 Urine Cocaine Screen Presumptive negative 11/23/17 13:39 U Marijuana (THC) Screen Presumptive negative 11/23/17 13:39 Drugs of Abuse Note Disclamer 11/23/17 13:39
--- NOTE | 2017-11-27 14:30 | Consultation ---
History of Present Illness - Reason for Consult Consult date: 11/27/17 fever Requesting physician: HARVEY BERNAL - History of Present Illness 56 years old female with history of COPD and alcohol abuse; admitted on 11/23/17 after being found unresponsive for an unknown period of time at home. EMS found her to be cold, pulseless and in asystole area. EMS were unable to intubate her but eventually got combitube. They have difficulty getting an IV established until just prior to arriving at the ER and at that time she got 1 dose of epinephrine though was still pulseless and unresponsive at the ER with emesis filling the Combitube. Pupils were stated to be fixed and dilated with no withdrawal to pain. In the ED, her temperature was 91, heart rate 100, respiration 20, O2 sat 95, blood pressure 206/87. She then develop a fever of 102.4. Initial white count was 13. Hemoglobin 13.4. Platelets 279. Creatinine 1.3. Lactate 16. CRP 9.2. Urinalysis was negative. Pt was then intubated. She was given 1 dose of epinephrine and 1 of sodium bicarbonate during ACLS protocol. Initial chest x- ray was negative. Initial CT of the head was negative. Microbiology: Blood cultures: 11/24 ngtd Urine cultures: 11/24 ngtd Respiratory cultures: 11/23 Candace labicans Current Antimicrobials: Zosyn 11/23 Vancomycin 11/23 Previous Antimicrobials: Past History Past Medical History: COPD Social history: single, smoking (both electronic cigarettes and some tobacco per her son is likely), alcohol abuse (unknown but has a history of this per her son), IV drug use (her son thinks this is correct in the distant past), other (occasional use of marijuana still her son thinks) Family history: hypertension (maternal side according to her son), other ( unknown if strokes or epilepsy) Medications and Allergies Allergies Allergy/AdvReac Type Severity Reaction Status Date / Time No Known Allergies Allergy Unverified 11/23/17 13:20 Home Medications Medication Instructions Recorded Confirmed Last Taken Type Unobtainable 11/23/17 11/23/17 Unknown History Active Meds: Active Medications Acetaminophen (Tylenol) 650 mg AK Q6H PRN PRN Reason: Pain, Mild (1-3) Last Admin: 11/27/17 10:37 Dose: 650 mg Al Hydrox/Mg Hydrox/Simethicone (Alum-Mag Hydrox-Simeth 126-503-30oh/5ml) 30 ml PO Q4H PRN PRN Reason: Indigestion Albuterol/Ipratropium (Duoneb *Not For Prn Use*) 1 ampul IH Q6HRT [facility] Last Admin: 11/27/17 14:19 Dose: 1 ampul Lipase/Protease/Amylase (Pancreaze Dr 10,500 Unit) 1 each FEEDTUBE PRN PRN PRN Reason: For Clogged Feeding Tube Bisacodyl (Dulcolax) 10 mg AK QDAY PRN PRN Reason: constipation unrelieved by MOM Diphenhydramine HCl (Benadryl) 25 mg IV Q12HR [facility] Last Admin: 11/27/17 10:04 Dose: 25 mg Famotidine (Pepcid) 20 mg IV BID [facility] Last Admin: 11/27/17 10:04 Dose: 20 mg Heparin Sodium (Porcine) (Heparin) 5,000 unit SUB-Q Q8HR [facility] Last Admin: 11/27/17 05:54 Dose: 5,000 unit Hydromorphone HCl (Dilaudid) 1 mg IV Q3H PRN PRN Reason: Pain , Severe (7-10) Last Admin: 11/24/17 02:23 Dose: 1 mg Hydrophilic Ointment (Vaseline Lip Therapy) 1 applic TP Q2HR PRN PRN Reason: Dry Lips Piperacillin Sod/Tazobactam Sod (Zosyn/Ns 4.5gm/100ml) 4.5 gm in 100 mls @ 200 mls/hr IV Q8H BERTO PRN Reason: Protocol Last Admin: 11/27/17 12:37 Dose: 200 mls/hr Propofol (Diprivan 10 Mg/Ml) 1,000 mg in 100 mls @ 1.905 mls/hr IV TITR BERTO; 5 MCG/KG/MIN PRN Reason: Protocol Last Admin: 11/25/17 22:10 Dose: 10 mcg/kg/min, 3.81 mls/hr Vancomycin HCl (Vancomycin/0.45 Ns 1 Gm/250 Ml) 1 gm in 250 mls @ 167.007 mls/ hr IV Q24H [facility] Last Admin: 11/26/17 17:29 Dose: 167 mls/hr Levetiracetam 500 mg/ Dextrose 55 mls @ 200 mls/hr IV Q6HR [facility] Last Admin: 11/27/17 12:35 Dose: 200 mls/hr Midazolam HCl 100 mg/ Sodium (Chloride) 100 mls @ 2 mls/hr IV TITR BERTO; 2 MG/HR PRN Reason: Protocol Last Admin: 11/26/17 17:30 Dose: 2 mg/hr, 2 mls/hr Nicardipine HCl 50 mg/ Sodium (Chloride) 250 mls @ 25 mls/hr IV TITR BERTO; 5 MG/ HR PRN Reason: Protocol Last Titration: 11/27/17 08:45 Dose: Infused Potassium Chloride 10 meq/ (Dextrose) 1,005 mls @ 125 mls/hr IV DIRECT BERTO Lorazepam (Ativan) 2 mg IV Q2H PRN PRN Reason: SEIZURES/AGITATION Last Admin: 11/26/17 05:08 Dose: 2 mg Magnesium Hydroxide (Milk Of Magnesia) 30 ml PO Q4H PRN PRN Reason: Constipation Metoclopramide HCl (Reglan) 10 mg IV Q8HR [facility] Last Admin: 11/27/17 06:48 Dose: Not Given Morphine Sulfate (Morphine) 2 mg IV Q4H PRN PRN Reason: Pain, Moderate (4-6) Multi-Ingred Cream/Lotion/Oil/Oint (Artificial Tears Ophth Oint) 1 applic OU Q4HR PRN PRN Reason: Dry Eye(s) Ondansetron HCl (Zofran) 4 mg IV Q3H PRN PRN Reason: N/V unrelieved by Reglan Simple Syrup (Simple Syrup) 15 ml FEEDTUBE PRN PRN PRN Reason: Hypoglycemia Simple Syrup (Simple Syrup) 30 ml FEEDTUBE PRN PRN PRN Reason: Hypoglycemia Sodium Bicarbonate (Sodium Bicarbonate) 325 mg FEEDTUBE PRN PRN PRN Reason: For Clogged Feeding Tube Sodium Chloride (Nacl 0.9% 500 Ml) 1 ml IV DIRECT BERTO Vancomycin HCl (Vancomycin Pharmacy To Dose) 1 each IV PKCONSULT BERTO PRN Reason: Protocol Physical Examination - Physical Exam Narrative exam: General appearance: sedated on the vent Eyes: anicteric sclerae, moist conjunctivae; no lid-lag; PERRLA HENT: Atraumatic; oropharynx +ETT Neck: Trachea midline; supple, no thyromegaly or lymphadenopathy Lungs: polo coarse BS CV: tachy Abdomen: Soft, non-tender; no masses or hepatosplenomegaly Extremities: mild peripheral edema, no extremity lymphadenopathy Skin: Normal temperature, turgor and texture; no rash, ulcers or subcutaneous nodules Psych: sedated. Neuro: sedated Lines: No CVL / PICC - Constitutional Vitals: Vital Signs Temp Pulse Resp BP Pulse Ox 102.2 F H 92 H 12 115/68 97 11/27/17 11:50 11/27/17 13:40 11/27/17 13:15 11/27/17 13:40 11/27/17 13:40 Temperature -Last 24 Hours Temperature 102.2 F Temperature 103.0 F Temperature 102.9 F Temperature 102.3 F Temperature 101.6 F Temperature 102.1 F Results - Labs CBC & Chem 7: 11/27/17 04:22 11/27/17 04:22 Labs: Abnormal lab results 11/26/17 11/26/17 11/27/17 Range/Units 17:53 23:56 04:22 WBC 11.7 H (4.5-11.0) K/mm3 Hgb 15.7 H (10.1-14.3) gm/dl Hct 49.8 H (30.3-42.9) % MCV 100 H (79-97) fl RDW 16.4 H (13.2-15.2) % Plt Count 105 L (140-440) K/mm3 Lymph % (Auto) 7.6 L (13.4-35.0) % [place] % (Auto) 8.7 H (0.0-7.3) % Lymph # 0.9 L (1.2-5.4) K/mm3 [place] # 1.0 H (0.0-0.8) K/mm3 Seg Neutrophils % 83.2 H (40.0-70.0) % Seg Neutrophils # 9.7 H (1.8-7.7) K/mm3 POC ABG pCO2 (35-45) POC ABG pO2 (80-105) Sodium (137-145) mmol/L Chloride (98-107) mmol/L Creatinine (0.7-1.2) mg/dL Glucose (65-100) mg/dL POC Glucose 168 H 145 H (70-105) Calcium (8.4-10.2) mg/dL 11/27/17 11/27/17 11/27/17 Range/Units 04:22 04:53 05:34 WBC (4.5-11.0) K/mm3 Hgb (10.1-14.3) gm/dl Hct (30.3-42.9) % MCV (79-97) fl RDW (13.2-15.2) % Plt Count (140-440) K/mm3 Lymph % (Auto) (13.4-35.0) % [place] % (Auto) (0.0-7.3) % Lymph # (1.2-5.4) K/mm3 [place] # (0.0-0.8) K/mm3 Seg Neutrophils % (40.0-70.0) % Seg Neutrophils # (1.8-7.7) K/mm3 POC ABG pCO2 53.1 H (35-45) POC ABG pO2 70 L (80-105) Sodium 155 H (137-145) mmol/L Chloride 113.1 H (98-107) mmol/L Creatinine 1.5 H (0.7-1.2) mg/dL Glucose 128 H (65-100) mg/dL POC Glucose 120 H (70-105) Calcium 7.4 L (8.4-10.2) mg/dL 11/27/17 Range/Units 11:27 WBC (4.5-11.0) K/mm3 Hgb (10.1-14.3) gm/dl Hct (30.3-42.9) % MCV (79-97) fl RDW (13.2-15.2) % Plt Count (140-440) K/mm3 Lymph % (Auto) (13.4-35.0) % [place] % (Auto) (0.0-7.3) % Lymph # (1.2-5.4) K/mm3 [place] # (0.0-0.8) K/mm3 Seg Neutrophils % (40.0-70.0) % Seg Neutrophils # (1.8-7.7) K/mm3 POC ABG pCO2 (35-45) POC ABG pO2 (80-105) Sodium (137-145) mmol/L Chloride (98-107) mmol/L Creatinine (0.7-1.2) mg/dL Glucose (65-100) mg/dL POC Glucose 129 H (70-105) Calcium (8.4-10.2) mg/dL Assessment and Plan Assessment: 1) Sepsis: Present on admission, manifested by hypothermia then fever, tachycardia, leukocytosis, increased lactate. Etiology most likely pneumonia +/ - cardiac arrest +/- central fever +/- influenza 2) Post-cardiac arrest at home 3) Repsiratory failure 6) Pressumed LLL pneumonia: ? Aspiration pneumonia. Resp cx + Candace likely a colonizer 7) Encephalopathy / seizures: presumed anoxic brain injury 8) TAMARA 9) COPD 10 ) Elevated LFTs ? from sepsis 11) Alcohol and tobacco abuse Plan: -follow-up blood cultures -obtain respiratory cultures, procalcitonin, C-reactive protein (CRP) -check influenza antigen in nasopharinx -stop vancomycin for now -continue zosyn -check viral hepatitis panel -add tamiflu and droplets until influenza is r/o Thank you for your consultation, will follow up with you. Kailey Torre MD Infectious Diseases Specialist [facility] M [phone] O [phone]
--- NOTE | 2017-11-27 15:28 | Progress Note ---
Assessment and Plan Acute hypoxemic respiratory failure, on mechanical ventilatory support. Status post cardiac arrest. Likely aspiration pneumonia. Acute encephalopathy with myoclonic jerks Acute exacerbation of chronic obstructive pulmonary disease. h/o Nicotine dependence/Tobacco use disorder. Obesity. Hypertension. History of alcohol abuse - continue full MVS - encephalopathy w/up ongoing - Neurology notes reviewed, for repeat CT head tomorrow, and EEG. - continue benadryl and double dose PPI for angioedema type tongue swelling - continue aspiration precautions / address VAP bundle daily - continue bronchodilators and pulmonary hygiene - continue to wean oxygen for sats > 90% - NGT to LIS for now - continue GI & VTE prophylaxis - continue empiric antibiotics and follow C&S - continue other care per attending/ other consultants ....remains critically ill on MVS and at high risk for further deterioration including ..35' CCT Subjective Date of service: 11/27/17 Principal diagnosis: Acute Hypoxemic Resp Failure; S/P Cardiac Arrest; Acute Encephalopathy Interval history: unresponsive following cardiopulmonary arrest, twitching of face History of present illness per medical records: This 56-year-old right handed (per son) white female was admitted yesterday having last been normal 6 AM yesterday morning according to her roommate (per ER notes here). Her son states she may have been down for several hours before found again. EMS found her to be cold, pulseless and in asystole area they were unable to intubate her but eventually got accompanied to be in. They have difficulty getting an IV established until just prior to arriving at the ER and at that time she got 1 dose of epinephrine though was still pulseless and unresponsive at the ER with emesis filling the Combitube. Pupils were stated to be fixed and dilated with no withdrawal to pain. She was then intubated. She was given 1 dose of epinephrine and 1 of sodium bicarbonate during ACLS protocol. She had lactic acidosis of about 16, elevated liver enzymes and ABG showing respiratory acidosis. CT scan is read as normal but to me may be showing posterior effaced sulci. She was started on Keppra 750 mg IV every 12. She was noted to have some history of COPD and alcohol abuse. Her son has a bag of her medications from home including multiple inhalers (Combivent, Advair , Ventolin) as well as Mobic, Robitussin-DM generic syrup, and ipratropium dose apparently for nebulizer Patient was seen and examined. Vitals, labs, medications, chart, imaging was reviewed. No acute overnight events were reported. She remains orally intubated on mechanical ventilatory support. On vasopressin infusion. Discussed with RT and RN at the bedside Objective - Exam Narrative Exam: General appearance: orally intubated on mechanical ventilatory support, no dys- synchrony. Unresponsive even on sternal rub Eyes: anicteric sclerae, moist conjunctivae; HENT: Atraumatic; oropharynx +ETT, NGT Neck: Trachea midline; supple, no thyromegaly or lymphadenopathy Lungs: polo coarse BS CV: tachy Abdomen: Soft, non-tender; no masses or hepatosplenomegaly Extremities: mild peripheral edema, no extremity lymphadenopathy Skin: Normal temperature, turgor and texture; no rash, ulcers or subcutaneous nodules Psych:unable to assess. Neuro: unresponsive Lines: Vital Signs - 12hr 11/27/17 11/27/17 11/27/17 03:30 03:45 04:00 Temperature 102.9 F H Pulse Rate 108 H 105 H 106 H Pulse Rate [ Left Radial] Respiratory 20 19 18 Rate Blood Pressure 120/69 114/66 121/63 O2 Sat by Pulse 93 93 93 Oximetry 11/27/17 11/27/17 11/27/17 04:15 04:20 04:30 Temperature Pulse Rate 105 H 105 H 104 H Pulse Rate [ Left Radial] Respiratory 24 18 Rate Blood Pressure 112/66 112/66 123/64 O2 Sat by Pulse 94 93 93 Oximetry 11/27/17 11/27/17 11/27/17 04:37 04:45 05:00 Temperature Pulse Rate 105 H 105 H Pulse Rate [ 104 H Left Radial] Respiratory 19 21 Rate Blood Pressure 121/63 124/65 O2 Sat by Pulse 93 93 93 Oximetry 11/27/17 11/27/17 11/27/17 05:15 05:30 05:45 Temperature Pulse Rate 105 H 105 H 105 H Pulse Rate [ Left Radial] Respiratory 17 19 19 Rate Blood Pressure 128/62 114/68 123/71 O2 Sat by Pulse 93 93 93 Oximetry 11/27/17 11/27/17 11/27/17 06:00 06:16 06:30 Temperature Pulse Rate 105 H 106 H 106 H Pulse Rate [ Left Radial] Respiratory 16 20 18 Rate Blood Pressure 126/58 123/64 142/73 O2 Sat by Pulse 93 94 94 Oximetry 11/27/17 11/27/17 11/27/17 06:46 07:00 07:15 Temperature Pulse Rate 106 H 105 H 106 H Pulse Rate [ Left Radial] Respiratory 19 17 18 Rate Blood Pressure 120/62 138/69 127/75 O2 Sat by Pulse 94 95 94 Oximetry 11/27/17 11/27/17 11/27/17 07:30 07:46 07:49 Temperature 103.0 F H Pulse Rate 107 H 107 H Pulse Rate [ Left Radial] Respiratory 19 18 Rate Blood Pressure 141/94 160/91 O2 Sat by Pulse 95 95 Oximetry 11/27/17 11/27/17 11/27/17 08:00 08:16 08:30 Temperature Pulse Rate 108 H 107 H 107 H Pulse Rate [ Left Radial] Respiratory 18 21 18 Rate Blood Pressure 182/89 170/83 155/93 O2 Sat by Pulse 95 95 95 Oximetry 11/27/17 11/27/17 11/27/17 08:46 08:55 09:00 Temperature Pulse Rate 107 H 106 H 106 H Pulse Rate [ Left Radial] Respiratory 17 18 Rate Blood Pressure 167/90 180/76 180/76 O2 Sat by Pulse 94 94 94 Oximetry 11/27/17 11/27/17 11/27/17 09:16 09:30 09:45 Temperature Pulse Rate 106 H 105 H 105 H Pulse Rate [ Left Radial] Respiratory 12 11 L 12 Rate Blood Pressure 152/81 150/82 152/89 O2 Sat by Pulse 95 96 96 Oximetry 11/27/17 11/27/17 11/27/17 10:00 10:16 10:30 Temperature Pulse Rate 104 H 103 H 103 H Pulse Rate [ Left Radial] Respiratory 14 12 12 Rate Blood Pressure 143/91 157/81 147/85 O2 Sat by Pulse 96 97 97 Oximetry 11/27/17 11/27/17 11/27/17 10:45 11:00 11:15 Temperature Pulse Rate 103 H 103 H 102 H Pulse Rate [ Left Radial] Respiratory 12 12 12 Rate Blood Pressure 131/79 131/79 139/74 O2 Sat by Pulse 98 98 97 Oximetry 11/27/17 11/27/17 11/27/17 11:30 11:45 11:50 Temperature 102.2 F H Pulse Rate 102 H 101 H Pulse Rate [ Left Radial] Respiratory 12 12 Rate Blood Pressure 145/76 135/75 O2 Sat by Pulse 97 97 Oximetry 11/27/17 11/27/17 11/27/17 12:01 12:15 12:30 Temperature Pulse Rate 99 H 96 H 94 H Pulse Rate [ Left Radial] Respiratory 12 12 12 Rate Blood Pressure 133/65 133/65 116/67 O2 Sat by Pulse 97 97 97 Oximetry 11/27/17 11/27/17 11/27/17 12:45 13:00 13:15 Temperature Pulse Rate 92 H 90 89 Pulse Rate [ Left Radial] Respiratory 12 12 12 Rate Blood Pressure 122/67 106/68 101/68 O2 Sat by Pulse 97 97 97 Oximetry 11/27/17 11/27/17 11/27/17 13:30 13:40 13:45 Temperature Pulse Rate 89 92 H 90 Pulse Rate [ Left Radial] Respiratory 12 12 Rate Blood Pressure 122/65 115/68 126/70 O2 Sat by Pulse 98 97 98 Oximetry 11/27/17 11/27/17 11/27/17 14:00 14:15 14:30 Temperature Pulse Rate 89 92 H 90 Pulse Rate [ Left Radial] Respiratory 12 12 12 Rate Blood Pressure 115/68 102/72 116/69 O2 Sat by Pulse 98 97 97 Oximetry CBC and BMP: 11/27/17 04:22 11/27/17 04:22 ABG, PT/INR, D-dimer: ABG POC ABG pH 7.372 (7.35-7.45) 11/27/17 04:53 POC ABG pCO2 53.1 (35-45) H 11/27/17 04:53 POC ABG pO2 70 (80-105) L 11/27/17 04:53 POC ABG HCO3 30.8 11/27/17 04:53 POC ABG Total CO2 32 11/27/17 04:53 POC ABG O2 Sat 93 11/27/17 04:53 PT/INR, D-dimer PT 15.3 Sec. (12.2-14.9) H 11/23/17 12:44 INR 1.15 (0.87-1.13) H 11/23/17 12:44 D-Dimer 1977.37 ng/mlDDU (0-234) H 11/24/17 14:44 Abnormal lab findings: Abnormal Labs 02/05/0311/23/17 11/23/17 12:44 12:44 12:44 WBC 13.0 H Hgb Hct 46.1 H MCV 112 H MCH 33 H MCHC 29 L RDW 18.5 H Plt Count Lymph % (Auto) Grainger % (Auto) Lymph # Grainger # Seg Neutrophils % Seg Neuts % (Manual) 71.0 H Monocytes % (Manual) 8.0 H Nucleated RBC % 6.0 H Seg Neutrophils # Seg Neutrophils # Man 9.2 H Monocytes # (Manual) 1.0 H PT 15.3 H INR 1.15 H D-Dimer POC ABG pH POC ABG pCO2 POC ABG pO2 Sodium Potassium 5.4 H Chloride 85.2 L Carbon Dioxide BUN 19 H Creatinine 1.3 H Glucose 175 H POC Glucose Lactic Acid Calcium AST 310 H ALT 262 H C-Reactive Protein Total Protein 5.7 L Albumin 2.9 L Salicylates 11/23/17 11/23/17 11/23/17 12:44 13:23 15:54 WBC Hgb Hct MCV MCH MCHC RDW Plt Count Lymph % (Auto) Grainger % (Auto) Lymph # Grainger # Seg Neutrophils % Seg Neuts % (Manual) Monocytes % (Manual) Nucleated RBC % Seg Neutrophils # Seg Neutrophils # Man Monocytes # (Manual) PT INR D-Dimer POC ABG pH 7.035 L POC ABG pCO2 99.1 H POC ABG pO2 343 H Sodium Potassium Chloride Carbon Dioxide BUN Creatinine Glucose POC Glucose Lactic Acid 16.10 H* Calcium AST ALT C-Reactive Protein Total Protein Albumin Salicylates < 0.3 L 11/23/17 11/24/17 11/24/17 16:42 04:03 04:03 WBC 16.8 H Hgb 15.7 H Hct 48.9 H MCV 101 H MCH MCHC RDW 16.5 H Plt Count Lymph % (Auto) 5.2 L Grainger % (Auto) Lymph # 0.9 L Grainger # 0.9 H Seg Neutrophils % 89.1 H Seg Neuts % (Manual) Monocytes % (Manual) Nucleated RBC % Seg Neutrophils # 14.9 H Seg Neutrophils # Man Monocytes # (Manual) PT INR D-Dimer POC ABG pH POC ABG pCO2 POC ABG pO2 55 L Sodium Potassium Chloride 96.0 L Carbon Dioxide 33 H D BUN 28 H Creatinine 1.5 H Glucose 108 H POC Glucose Lactic Acid Calcium 7.7 L AST 1091 H ALT 986 H C-Reactive Protein Total Protein 5.0 L Albumin 2.8 L Salicylates 11/24/17 11/24/17 11/24/17 05:55 13:29 13:29 WBC Hgb Hct MCV MCH MCHC RDW Plt Count Lymph % (Auto) Grainger % (Auto) Lymph # Grainger # Seg Neutrophils % Seg Neuts % (Manual) Monocytes % (Manual) Nucleated RBC % Seg Neutrophils # Seg Neutrophils # Man Monocytes # (Manual) PT INR D-Dimer POC ABG pH 7.469 H POC ABG pCO2 52.3 H POC ABG pO2 69 L Sodium Potassium Chloride Carbon Dioxide BUN Creatinine Glucose POC Glucose Lactic Acid 3.20 H* Calcium AST ALT C-Reactive Protein 9.20 H Total Protein Albumin Salicylates 11/24/17 11/24/17 11/25/17 14:44 20:55 01:55 WBC Hgb Hct MCV MCH MCHC RDW Plt Count Lymph % (Auto) Grainger % (Auto) Lymph # Grainger # Seg Neutrophils % Seg Neuts % (Manual) Monocytes % (Manual) Nucleated RBC % Seg Neutrophils # Seg Neutrophils # Man Monocytes # (Manual) PT INR D-Dimer 1977.37 H POC ABG pH 7.471 H POC ABG pCO2 56.2 H POC ABG pO2 Sodium Potassium Chloride Carbon Dioxide BUN Creatinine Glucose POC Glucose Lactic Acid 3.00 H* Calcium AST ALT C-Reactive Protein Total Protein Albumin Salicylates 11/25/17 11/25/17 11/25/17 03:02 03:02 03:02 WBC 16.0 H Hgb Hct MCV 99 H MCH MCHC RDW 16.0 H Plt Count Lymph % (Auto) 11.6 L Grainger % (Auto) Lymph # Grainger # 1.0 H Seg Neutrophils % 81.8 H Seg Neuts % (Manual) Monocytes % (Manual) Nucleated RBC % Seg Neutrophils # 13.1 H Seg Neutrophils # Man Monocytes # (Manual) PT INR D-Dimer POC ABG pH POC ABG pCO2 POC ABG pO2 Sodium 148 H Potassium Chloride Carbon Dioxide 35 H BUN 30 H Creatinine 1.9 H Glucose 106 H POC Glucose Lactic Acid 2.90 H* Calcium 7.0 L AST ALT C-Reactive Protein Total Protein Albumin Salicylates 11/25/17 11/25/17 11/25/17 03:02 03:35 07:15 WBC Hgb Hct MCV MCH MCHC RDW Plt Count Lymph % (Auto) Grainger % (Auto) Lymph # Grainger # Seg Neutrophils % Seg Neuts % (Manual) Monocytes % (Manual) Nucleated RBC % Seg Neutrophils # Seg Neutrophils # Man Monocytes # (Manual) PT INR D-Dimer POC ABG pH 7.494 H POC ABG pCO2 48.1 H POC ABG pO2 Sodium Potassium Chloride Carbon Dioxide BUN Creatinine Glucose POC Glucose Lactic Acid 2.30 H* Calcium AST 300 H ALT 561 H C-Reactive Protein Total Protein 4.5 L Albumin 2.4 L Salicylates 11/26/17 11/26/17 11/26/17 03:26 03:26 03:52 WBC 12.7 H Hgb 14.9 H Hct 45.9 H MCV 98 H MCH MCHC RDW 16.3 H Plt Count 137 L Lymph % (Auto) 10.0 L Grainger % (Auto) Lymph # Grainger # Seg Neutrophils % 82.7 H Seg Neuts % (Manual) Monocytes % (Manual) Nucleated RBC % Seg Neutrophils # 10.5 H Seg Neutrophils # Man Monocytes # (Manual) PT INR D-Dimer POC ABG pH 7.475 H POC ABG pCO2 POC ABG pO2 71 L Sodium 150 H Potassium 3.3 L Chloride Carbon Dioxide BUN 22 H Creatinine 1.7 H Glucose 107 H POC Glucose Lactic Acid Calcium 7.5 L AST ALT C-Reactive Protein Total Protein Albumin Salicylates 11/26/17 11/26/17 11/26/17 11:49 17:53 23:56 WBC Hgb Hct MCV MCH MCHC RDW Plt Count Lymph % (Auto) Grainger % (Auto) Lymph # Grainger # Seg Neutrophils % Seg Neuts % (Manual) Monocytes % (Manual) Nucleated RBC % Seg Neutrophils # Seg Neutrophils # Man Monocytes # (Manual) PT INR D-Dimer POC ABG pH POC ABG pCO2 POC ABG pO2 Sodium Potassium Chloride Carbon Dioxide BUN Creatinine Glucose POC Glucose 109 H 168 H 145 H Lactic Acid Calcium AST ALT C-Reactive Protein Total Protein Albumin Salicylates 11/27/17 11/27/17 11/27/17 04:22 04:22 04:53 WBC 11.7 H Hgb 15.7 H Hct 49.8 H MCV 100 H MCH MCHC RDW 16.4 H Plt Count 105 L Lymph % (Auto) 7.6 L Grainger % (Auto) 8.7 H Lymph # 0.9 L Grainger # 1.0 H Seg Neutrophils % 83.2 H Seg Neuts % (Manual) Monocytes % (Manual) Nucleated RBC % Seg Neutrophils # 9.7 H Seg Neutrophils # Man Monocytes # (Manual) PT INR D-Dimer POC ABG pH POC ABG pCO2 53.1 H POC ABG pO2 70 L Sodium 155 H Potassium Chloride 113.1 H Carbon Dioxide BUN Creatinine 1.5 H Glucose 128 H POC Glucose Lactic Acid Calcium 7.4 L AST ALT C-Reactive Protein Total Protein Albumin Salicylates 11/27/17 11/27/17 05:34 11:27 WBC Hgb Hct MCV MCH MCHC RDW Plt Count Lymph % (Auto) Grainger % (Auto) Lymph # Grainger # Seg Neutrophils % Seg Neuts % (Manual) Monocytes % (Manual) Nucleated RBC % Seg Neutrophils # Seg Neutrophils # Man Monocytes # (Manual) PT INR D-Dimer POC ABG pH POC ABG pCO2 POC ABG pO2 Sodium Potassium Chloride Carbon Dioxide BUN Creatinine Glucose POC Glucose 120 H 129 H Lactic Acid Calcium AST ALT C-Reactive Protein Total Protein Albumin Salicylates
[2017-11-27] MEDS: CARDENE 50 MG in NACL 0.9% 250ML 230 ML IV SCH (15:46)
[2017-11-27] MEDS: KCL 10 MEQ in D5W 1,000 ML IV SCH ×2 (16:13→23:46)
[2017-11-27] MEDS ORDERED: TAMIFLU PO SCH (22:00)
[2017-11-27] MEDS: TAMIFLU PO SCH (22:14)
[2017-11-28] MEDS: MIDAZOLAM 100 MG in NACL 0.9% 80 ML IV SCH (01:14)
[2017-11-28] MEDS: ZOSYN/NS 4.5GM/100ML 4.5 GM/100 ML VIAL IV SCH ×3 (01:15→19:37)
--- NOTE | 2017-11-28 03:05 | XRay Report ---
FINAL REPORT EXAM: XR CHEST 1V AP HISTORY: Follow-up respiratory failure. TECHNIQUE: A single frontal portable radiograph of the chest was obtained. Comparison is made with prior study 11/26/2017. FINDINGS: The cardiac silhouette and mediastinum are within normal limits. An endotracheal tube is seen with its tip 5-6 cm above the barbara. A nasogastric tube traverses the thorax into the stomach, though its tip is not included on this film. There is mild pulmonary vascular congestion, stable. The left basilar infiltrate is stable in appearance. There is been improved aeration of the right lung, with decreased right infrahilar and right basilar infiltrates. There is a faint infiltrate in the left lateral midlung, not clearly seen on prior exam. There is no pleural effusion or pneumothorax. No significant osseous abnormalities are identified. IMPRESSION: Overall mixed interval response with improved aeration of the right lung, but with new minimal infiltrate in the left lateral midlung.
[2017-11-28 03:44] LABS: Basophils # (Auto) 0.1 K/mm3 (0.0-0.1); Basophils % (Auto) 0.7 % (0.0-1.8); Eosinophils # (Auto) 0.2 K/mm3 (0.0-0.4); Eosinophils % (Auto) 1.4 % (0.0-4.3); Hematocrit 48.3 % (30.3-42.9); Hemoglobin 15.2 gm/dl (10.1-14.3); Lymphocytes # (Auto) 1.4 K/mm3 (1.2-5.4); Lymphocytes % (Auto) 9.7 % (13.4-35.0); Mean Corpuscular HGB Conc 31 % (30-34); Mean Corpuscular Hemoglobin 31 pg (28-32); Mean Corpuscular Volume 99 fl (79-97); Monocytes % (Auto) 7.2 % (0.0-7.3); Platelet Count 108 K/mm3 (140-440); Red Blood Count 4.88 M/mm3 (3.65-5.03); Red Cell Distribution Width 16.5 % (13.2-15.2)
[2017-11-28 04:09] LABS: Calcium 7.7 mg/dL (8.4-10.2)
[2017-11-28] MEDS: HEPARIN SUB-Q SCH ×3 (05:11→21:27)
[2017-11-28] MEDS: REGLAN IV SCH (05:12)
[2017-11-28] MEDS: KEPPRA IV SCH ×4 (05:18→23:51)
[2017-11-28] MEDS: D5W IV SCH ×4 (05:18→23:51)
[2017-11-28] MEDS: DUONEB *Not for PRN Use IH SCH ×4 (06:17→20:28)
--- NOTE | 2017-11-28 08:39 | Progress Note ---
Assessment and Plan Assessment and plan: S/p cardiopulmonary arrest. Etiology likely secondary to respiratory arrest. Pt. with probable anoxic encephalopathy as well. Sepsis. Pt. meets criteria with tachycardia, leukocytosis, elevated lactate and prob dx of ? aspiration pneumonia. Cont. IV abx, f/u cx results. Lactate 16! on admission. Patient with persistent fevers. Fevers may be related to sepsis versus neuro-mediated. ID consultation. Anoxic encephalopathy. Neuro following. Evaluate CT scan today to rule out cerebral edema. Hypernatremia. Consider DDAVP. Patient may be exhibiting central DI. We will defer to nephrology. Continue D5W and free water. Possible complex partial seizures with secondary generalization. Consider oxcarbamazepine or Versed if truncal jerks continue Acute hypercapneic resp failure. Pulm following. Cont. vent per Pulm. ARF. Etiology prob sec to TAMARA from sepsis/ATN. Renal following Elevated LFTs. Etiology prob secondary to ischemic hepatitis from sepsis/ATN. Check hepatitis panel. Consider GI consult Poor prognosis History Interval history: S/p cardiopulmonary arrest. Etiology likely secondary to respiratory arrest. Pt. with probable anoxic encephalopathy as well. Sepsis. Pt. meets criteria with tachycardia, leukocytosis, elevated lactate and prob dx of ? aspiration pneumonia. Cont. IV abx, f/u cx results. Lactate 16! on admission. Patient with persistent fevers. Fevers may be related to sepsis versus neuro-mediated. ID consultation. Anoxic encephalopathy. Neuro following. Evaluate CT scan today to rule out cerebral edema. Hypernatremia. Consider DDAVP. Patient may be exhibiting central DI. We will defer to nephrology. Continue D5W and free water. Possible complex partial seizures with secondary generalization. Consider oxcarbamazepine or Versed if truncal jerks continue Acute hypercapneic resp failure. Pulm following. Cont. vent per Pulm. ARF. Etiology prob sec to TAMARA from sepsis/ATN. Renal following Elevated LFTs. Etiology prob secondary to ischemic hepatitis from sepsis/ATN. Check hepatitis panel. Consider GI consult Poor prognosis The high probability of a clinically significant, sudden or life threatening deterioration of the [cardiac, pulmonary, neuro and GI] system(s) required my full and direct attention, intervention and personal management. The aggregate critical care time was [31] minutes. This time is in addition to time spent performing reported procedures but includes the following: [x] Data Review and interpretation [x] Patient assessment and monitoring of vital signs [x] Documentation [x] Medication orders and management Hospitalist Physical - Constitutional Vitals: Temp Pulse Resp BP Pulse Ox 99.7 F H 100 H 12 150/72 93 11/28/17 08:00 11/28/17 06:00 11/28/17 06:00 11/28/17 06:00 11/28/17 06:00 General appearance: Present: no acute distress, other (on mech vent, orally intubated) - EENT Eyes: Present: PERRL, EOM intact ENT: hearing intact, clear oral mucosa, dentition normal - Neck Neck: Present: supple, normal ROM - Respiratory Respiratory effort: normal Respiratory: bilateral: diminished, rales, rhonchi - Cardiovascular Rhythm: regular Heart Sounds: Present: S1 & S2. Absent: gallop, rub - Extremities Extremities: no ischemia, No edema, Full ROM - Abdominal General gastrointestinal: soft, non-tender, non-distended, normal bowel sounds - Integumentary Integumentary: Present: clear, warm, dry - Neurologic Neurologic: CNII-XII intact, moves all extremities Results - Labs CBC & Chem 7: 11/28/17 03:17 11/28/17 03:17 Labs: Laboratory Last Values WBC 14.5 K/mm3 (4.5-11.0) H 11/28/17 03:17 RBC 4.88 M/mm3 (3.65-5.03) 11/28/17 03:17 Hgb 15.2 gm/dl (10.1-14.3) H 11/28/17 03:17 Hct 48.3 % (30.3-42.9) H 11/28/17 03:17 MCV 99 fl (79-97) H 11/28/17 03:17 MCH 31 pg (28-32) 11/28/17 03:17 MCHC 31 % (30-34) 11/28/17 03:17 RDW 16.5 % (13.2-15.2) H 11/28/17 03:17 Plt Count 108 K/mm3 (140-440) L 11/28/17 03:17 Lymph % (Auto) 9.7 % (13.4-35.0) L 11/28/17 03:17 [place] % (Auto) 7.2 % (0.0-7.3) 11/28/17 03:17 Eos % (Auto) 1.4 % (0.0-4.3) 11/28/17 03:17 Baso % (Auto) 0.7 % (0.0-1.8) 11/28/17 03:17 Lymph # 1.4 K/mm3 (1.2-5.4) 11/28/17 03:17 [place] # 1.0 K/mm3 (0.0-0.8) H 11/28/17 03:17 Eos # 0.2 K/mm3 (0.0-0.4) 11/28/17 03:17 Baso # 0.1 K/mm3 (0.0-0.1) 11/28/17 03:17 Add Manual Diff Complete 11/23/17 12:44 Total Counted 100 11/23/17 12:44 Seg Neutrophils % 81.0 % (40.0-70.0) H 11/28/17 03:17 Seg Neuts % (Manual) 71.0 % (40.0-70.0) H 11/23/17 12:44 Band Neutrophils % 3.0 % 11/23/17 12:44 Lymphocytes % (Manual) 18.0 % (13.4-35.0) 11/23/17 12:44 Reactive Lymphs % (Man) 0 % 11/23/17 12:44 Monocytes % (Manual) 8.0 % (0.0-7.3) H 11/23/17 12:44 Eosinophils % (Manual) 0 % (0.0-4.3) 11/23/17 12:44 Basophils % (Manual) 0 % (0.0-1.8) 11/23/17 12:44 Metamyelocytes % 0 % 11/23/17 12:44 Myelocytes % 0 % 11/23/17 12:44 Promyelocytes % 0 % 11/23/17 12:44 Blast Cells % 0 % 11/23/17 12:44 Nucleated RBC % 6.0 % (0.0-0.9) H 11/23/17 12:44 Seg Neutrophils # 11.8 K/mm3 (1.8-7.7) H 11/28/17 03:17 Seg Neutrophils # Man 9.2 K/mm3 (1.8-7.7) H 11/23/17 12:44 Band Neutrophils # 0.4 K/mm3 11/23/17 12:44 Lymphocytes # (Manual) 2.3 K/mm3 (1.2-5.4) 11/23/17 12:44 Abs React Lymphs (Man) 0.0 K/mm3 11/23/17 12:44 Monocytes # (Manual) 1.0 K/mm3 (0.0-0.8) H 11/23/17 12:44 Eosinophils # (Manual) 0.0 K/mm3 (0.0-0.4) 11/23/17 12:44 Basophils # (Manual) 0.0 K/mm3 (0.0-0.1) 11/23/17 12:44 Metamyelocytes # 0.0 K/mm3 11/23/17 12:44 Myelocytes # 0.0 K/mm3 11/23/17 12:44 Promyelocytes # 0.0 K/mm3 11/23/17 12:44 Blast Cells # 0.0 K/mm3 11/23/17 12:44 WBC Morphology Not Reportable 11/23/17 12:44 Hypersegmented Neuts Not Reportable 11/23/17 12:44 Hyposegmented Neuts Not Reportable 11/23/17 12:44 Hypogranular Neuts Not Reportable 11/23/17 12:44 Smudge Cells Not Reportable 11/23/17 12:44 Toxic Granulation Not Reportable 11/23/17 12:44 Toxic Vacuolation Not Reportable 11/23/17 12:44 Dohle Bodies Not Reportable 11/23/17 12:44 Pelger-Huet Anomaly Not Reportable 11/23/17 12:44 Erika Rods Not Reportable 11/23/17 12:44 Platelet Estimate Consistent w auto 11/23/17 12:44 Clumped Platelets Not Reportable 11/23/17 12:44 Plt Clumps, EDTA Not Reportable 11/23/17 12:44 Large Platelets Not Reportable 11/23/17 12:44 Giant Platelets Not Reportable 11/23/17 12:44 Platelet Satelliting Not Reportable 11/23/17 12:44 Plt Morphology Comment Not Reportable 11/23/17 12:44 RBC Morphology Not Reportable 11/23/17 12:44 Dimorphic RBCs Not Reportable 11/23/17 12:44 Polychromasia Rare 11/23/17 12:44 Hypochromasia Not Reportable 11/23/17 12:44 Poikilocytosis Not Reportable 11/23/17 12:44 Anisocytosis 1+ 11/23/17 12:44 Microcytosis Not Reportable 11/23/17 12:44 Macrocytosis 1+ 11/23/17 12:44 Spherocytes Not Reportable 11/23/17 12:44 Pappenheimer Bodies Not Reportable 11/23/17 12:44 Sickle Cells Not Reportable 11/23/17 12:44 Target Cells Not Reportable 11/23/17 12:44 Tear Drop Cells Not Reportable 11/23/17 12:44 Ovalocytes Not Reportable 11/23/17 12:44 Helmet Cells Not Reportable 11/23/17 12:44 [place] Bodies Not Reportable 11/23/17 12:44 [place] Rings Not Reportable 11/23/17 12:44 Phillips Cells Not Reportable 11/23/17 12:44 Bite Cells Not Reportable 11/23/17 12:44 Crenated Cell Not Reportable 11/23/17 12:44 Elliptocytes Not Reportable 11/23/17 12:44 Acanthocytes (Spur) Not Reportable 11/23/17 12:44 Rouleaux Not Reportable 11/23/17 12:44 Hemoglobin C Crystals Not Reportable 11/23/17 12:44 Schistocytes Not Reportable 11/23/17 12:44 Malaria parasites Not Reportable 11/23/17 12:44 Brett Bodies Not Reportable 11/23/17 12:44 Hem Pathologist Commnt No 11/23/17 12:44 PT 15.3 Sec. (12.2-14.9) H 11/23/17 12:44 INR 1.15 (0.87-1.13) H 11/23/17 12:44 APTT 33.9 Sec. (24.2-36.6) 11/23/17 12:44 D-Dimer 1977.37 ng/mlDDU (0-234) H 11/24/17 14:44 POC ABG pH 7.324 (7.35-7.45) L 11/28/17 06:46 POC ABG pCO2 63.4 (35-45) H 11/28/17 06:46 POC ABG pO2 65 (80-105) L 11/28/17 06:46 POC ABG HCO3 33.0 11/28/17 06:46 POC ABG Total CO2 35 11/28/17 06:46 POC ABG O2 Sat 90 11/28/17 06:46 POC ABG Base Excess 7 11/28/17 06:46 FiO2 60 % 11/28/17 06:46 Sodium 150 mmol/L (137-145) H 11/28/17 03:17 Potassium 3.4 mmol/L (3.6-5.0) L 11/28/17 03:17 Chloride 107.9 mmol/L (98-107) H 11/28/17 03:17 Carbon Dioxide 31 mmol/L (22-30) H 11/28/17 03:17 Anion Gap 15 mmol/L 11/28/17 03:17 BUN 19 mg/dL (7-17) H 11/28/17 03:17 Creatinine 1.3 mg/dL (0.7-1.2) H 11/28/17 03:17 Estimated GFR 42 ml/min 11/28/17 03:17 BUN/Creatinine Ratio 15 % 11/28/17 03:17 Glucose 126 mg/dL (65-100) H 11/28/17 03:17 POC Glucose 132 (70-105) H 11/28/17 05:34 Lactic Acid 2.00 mmol/L (0.7-2.0) 11/25/17 10:25 Calcium 7.7 mg/dL (8.4-10.2) L 11/28/17 03:17 Total Bilirubin 0.60 mg/dL (0.1-1.2) 11/25/17 03:02 Direct Bilirubin 0.2 mg/dL (0-0.2) 11/25/17 03:02 Indirect Bilirubin 0.4 mg/dL 11/25/17 03:02 AST 300 units/L (5-40) H 11/25/17 03:02 ALT 561 units/L (7-56) H 11/25/17 03:02 Alkaline Phosphatase 54 units/L (35-129) 11/25/17 03:02 Troponin T < 0.010 ng/mL (0.00-0.029) 11/23/17 12:44 C-Reactive Protein 13.70 mg/dL (0.00-1.30) H 11/27/17 16:18 Total Protein 4.5 g/dL (6.3-8.2) L 11/25/17 03:02 Albumin 2.4 g/dL (3.9-5) L 11/25/17 03:02 Albumin/Globulin Ratio 1.1 % 11/25/17 03:02 Urine Color Yellow (Yellow) 11/23/17 13:39 Urine Turbidity Clear (Clear) 11/23/17 13:39 Urine pH 5.0 (5.0-7.0) 11/23/17 13:39 Ur Specific [place] 1.020 (1.003-1.030) 11/23/17 13:39 Urine Protein 30 mg/dl mg/dL (Negative) 11/23/17 13:39 Urine Glucose (UA) Neg mg/dL (Negative) 11/23/17 13:39 Urine Ketones Neg mg/dL (Negative) 11/23/17 13:39 Urine Blood Neg (Negative) 11/23/17 13:39 Urine Nitrite Neg (Negative) 11/23/17 13:39 Urine Bilirubin Neg (Negative) 11/23/17 13:39 Urine Urobilinogen 2.0 mg/dL (<2.0) 11/23/17 13:39 Ur Leukocyte Esterase Neg (Negative) 11/23/17 13:39 Urine WBC (Auto) 5.0 /HPF (0.0-6.0) 11/23/17 13:39 Urine RBC (Auto) 1.0 /HPF (0.0-6.0) 11/23/17 13:39 U Epithel Cells (Auto) 1.0 /HPF (0-13.0) 11/23/17 13:39 Urine Bacteria (Auto) 1+ /HPF (Negative) 11/23/17 13:39 Hyaline Casts 11 /LPF 11/23/17 13:39 Urine Mucus 2+ /HPF 11/23/17 13:39 Salicylates < 0.3 mg/dL (2.8-20.0) L 11/23/17 15:54 Urine Opiates Screen Presumptive positive 11/23/17 13:39 Urine Methadone Screen Presumptive negative 11/23/17 13:39 Acetaminophen < 15.0 ug/mL (10.0-30.0) 11/23/17 15:54 Ur Barbiturates Screen Presumptive negative 11/23/17 13:39 Ur Phencyclidine Scrn Presumptive negative 11/23/17 13:39 Ur Amphetamines Screen Presumptive negative 11/23/17 13:39 U Benzodiazepines Scrn Presumptive positive 11/23/17 13:39 Urine Cocaine Screen Presumptive negative 11/23/17 13:39 U Marijuana (THC) Screen Presumptive negative 11/23/17 13:39 Drugs of Abuse Note Disclamer 11/23/17 13:39
--- NOTE | 2017-11-28 09:28 | Progress Note ---
Assessment and Plan Impression: * Hypernatremia * TAMARA * S/P cardiac arress * Anoxia * Acute resp failure * hypokalemia Plan: * added d5w today and kcl * sodium is better * increase k in ivfs * follow up mag levels * rule out central diabetes insipidus * daily lytes * ua noted * neuro note reviewed, poor prognosis, ? brain Subjective Date of service: 11/28/17 Principal diagnosis: Acute Hypoxemic Resp Failure; S/P Cardiac Arrest; Acute Encephalopathy Interval history: resting in bed today, no acute events Objective - Exam Narrative Exam: General Appearance: well developed well nourished (per BMI) late 50s white female, intubated HEENT: atraumatic, normocephalic; no bruits, 2+ Aj without soreness or induration or enlargement, sclerae nonicteric. Oropharynx pink and moist. Neck: supple, no bruits. Heart: no murmur or extra sounds. Extremities: no clubbing, cyanosis or edema. No posterior tibial or dorsalis pedis pulses palpable on either side. - Vital Signs Vital signs: Vital Signs - 12hr 11/27/17 11/27/17 11/27/17 21:30 21:45 22:00 Temperature Pulse Rate 95 H 95 H 94 H Pulse Rate [ Anterior Bilateral Throughout] Respiratory 12 12 12 Rate Respiratory Rate [Anterior Bilateral Throughout] Blood Pressure 115/60 129/59 125/63 O2 Sat by Pulse 95 95 96 Oximetry 11/27/17 11/27/17 11/27/17 22:15 22:30 22:45 Temperature Pulse Rate 94 H 96 H 95 H Pulse Rate [ Anterior Bilateral Throughout] Respiratory 12 12 12 Rate Respiratory Rate [Anterior Bilateral Throughout] Blood Pressure 132/63 133/66 134/66 O2 Sat by Pulse 96 96 96 Oximetry 11/27/17 11/27/17 11/27/17 23:00 23:11 23:12 Temperature Pulse Rate 94 H 95 H 94 H Pulse Rate [ Anterior Bilateral Throughout] Respiratory 12 12 Rate Respiratory Rate [Anterior Bilateral Throughout] Blood Pressure 134/67 134/67 134/67 O2 Sat by Pulse 97 96 96 Oximetry 11/27/17 11/27/17 11/27/17 23:15 23:30 23:45 Temperature Pulse Rate 94 H 93 H 95 H Pulse Rate [ Anterior Bilateral Throughout] Respiratory 12 12 12 Rate Respiratory Rate [Anterior Bilateral Throughout] Blood Pressure 135/65 133/66 145/70 O2 Sat by Pulse 96 95 96 Oximetry 11/28/17 11/28/17 11/28/17 00:00 00:15 00:30 Temperature 99.7 F H Pulse Rate 95 H 97 H 97 H Pulse Rate [ Anterior Bilateral Throughout] Respiratory 11 L 15 15 Rate Respiratory Rate [Anterior Bilateral Throughout] Blood Pressure 142/67 143/73 141/68 O2 Sat by Pulse 94 97 97 Oximetry 11/28/17 11/28/17 11/28/17 00:45 01:00 01:15 Temperature Pulse Rate 98 H 97 H 96 H Pulse Rate [ Anterior Bilateral Throughout] Respiratory 15 15 15 Rate Respiratory Rate [Anterior Bilateral Throughout] Blood Pressure 146/72 146/72 152/77 O2 Sat by Pulse 97 97 98 Oximetry 11/28/17 11/28/17 11/28/17 01:30 01:45 02:00 Temperature Pulse Rate 96 H 93 H 93 H Pulse Rate [ Anterior Bilateral Throughout] Respiratory 15 11 L 13 Rate Respiratory Rate [Anterior Bilateral Throughout] Blood Pressure 137/65 124/68 129/71 O2 Sat by Pulse 97 98 98 Oximetry 11/28/17 11/28/17 11/28/17 02:15 02:30 02:45 Temperature Pulse Rate 95 H 96 H 97 H Pulse Rate [ Anterior Bilateral Throughout] Respiratory 14 14 13 Rate Respiratory Rate [Anterior Bilateral Throughout] Blood Pressure 143/71 137/71 147/70 O2 Sat by Pulse 97 97 93 Oximetry 11/28/17 11/28/17 11/28/17 03:00 03:15 03:31 Temperature Pulse Rate 97 H 98 H 98 H Pulse Rate [ Anterior Bilateral Throughout] Respiratory 19 14 16 Rate Respiratory Rate [Anterior Bilateral Throughout] Blood Pressure 137/67 137/67 143/71 O2 Sat by Pulse 94 92 92 Oximetry 11/28/17 11/28/17 11/28/17 03:45 03:47 04:00 Temperature 100.1 F H Pulse Rate 98 H 99 H Pulse Rate [ Anterior Bilateral Throughout] Respiratory 13 13 Rate Respiratory Rate [Anterior Bilateral Throughout] Blood Pressure 139/72 149/71 O2 Sat by Pulse 92 93 92 Oximetry 11/28/17 11/28/17 11/28/17 04:15 04:30 04:45 Temperature Pulse Rate 100 H 99 H 100 H Pulse Rate [ Anterior Bilateral Throughout] Respiratory 12 14 15 Rate Respiratory Rate [Anterior Bilateral Throughout] Blood Pressure 153/76 148/71 152/73 O2 Sat by Pulse 92 92 92 Oximetry 11/28/17 11/28/17 11/28/17 05:00 05:15 05:31 Temperature Pulse Rate 101 H 101 H 102 H Pulse Rate [ Anterior Bilateral Throughout] Respiratory 13 13 14 Rate Respiratory Rate [Anterior Bilateral Throughout] Blood Pressure 143/73 145/71 150/71 O2 Sat by Pulse 93 93 91 Oximetry 11/28/17 11/28/17 11/28/17 05:45 06:00 06:15 Temperature Pulse Rate 100 H 100 H 101 H Pulse Rate [ Anterior Bilateral Throughout] Respiratory 15 12 14 Rate Respiratory Rate [Anterior Bilateral Throughout] Blood Pressure 157/70 150/72 147/71 O2 Sat by Pulse 93 93 93 Oximetry 11/28/17 11/28/17 11/28/17 06:30 06:45 07:01 Temperature Pulse Rate 99 H 98 H 93 H Pulse Rate [ Anterior Bilateral Throughout] Respiratory 12 18 18 Rate Respiratory Rate [Anterior Bilateral Throughout] Blood Pressure 154/74 137/64 101/61 O2 Sat by Pulse 93 96 93 Oximetry 11/28/17 11/28/17 11/28/17 07:15 07:30 07:45 Temperature Pulse Rate 92 H 91 H 90 Pulse Rate [ Anterior Bilateral Throughout] Respiratory 18 18 18 Rate Respiratory Rate [Anterior Bilateral Throughout] Blood Pressure 105/59 114/64 105/62 O2 Sat by Pulse 93 93 93 Oximetry 11/28/17 11/28/17 11/28/17 08:00 08:15 08:30 Temperature 99.7 F H Pulse Rate 90 89 89 Pulse Rate [ Anterior Bilateral Throughout] Respiratory 19 18 18 Rate Respiratory Rate [Anterior Bilateral Throughout] Blood Pressure 104/62 108/64 118/66 O2 Sat by Pulse 94 94 94 Oximetry 11/28/17 09:01 Temperature Pulse Rate 88 Pulse Rate [ 88 Anterior Bilateral Throughout] Respiratory Rate Respiratory 18 Rate [Anterior Bilateral Throughout] Blood Pressure 121/66 O2 Sat by Pulse 96 Oximetry - Lab 11/28/17 03:17 02 03:17 Most recent lab results Calcium 7.7 mg/dL (8.4-10.2) L 11/28/17 03:17
[2017-11-28] MEDS: BENADRYL IV SCH ×2 (09:57→21:27)
[2017-11-28] MEDS: PEPCID IV SCH ×2 (09:58→21:27)
[2017-11-28] MEDS: TAMIFLU PO SCH ×2 (09:58→21:38)
[2017-11-28] MEDS: KCL 20 MEQ in D5W 1,000 ML IV SCH ×2 (10:00→22:27)
--- NOTE | 2017-11-28 11:35 | Progress Note ---
Assessment and Plan Acute hypoxemic respiratory failure, on mechanical ventilatory support. Status post cardiac arrest. Likely aspiration pneumonia. Acute encephalopathy with myoclonic jerks at this point, but with evidence of brainstem function. Acute exacerbation of chronic obstructive pulmonary disease. Tobacco use disorder. Obesity. Hypertension. History of alcohol abuse (She had no spontaneous respiratory effort during bedside SBT however still on versed) - continue full MVS acutely - increased Peep to 8 - stop versed and watch for tremors/seizures - Encephalopathy w/up ongoing - continue benadryl and double dose PPI for angioedema type tongue swelling ( swelling better) - continue aspiration precautions / address VAP bundle daily - continue bronchodilators and pulmonary hygiene per RT - continue to wean oxygen for espinoza > 90% - begin reglan at 5mg po q8h - begin enteral nutrition - begin reglan - continue GI & VTE prophylaxis - continue empiric AB's and follow C&S - continue other care per attending/ other consultants ...AMS karla likely be rate limiting step to extubation; neurology evaluation ongoing; if does not meet brain criteria i will reach out to next of kin re: goals of care in light of obtundation) ....remains critically ill on MVS and at high risk for further deterioration including ..35' CCT Subjective Date of service: 11/28/17 Principal diagnosis: Acute Hypoxemic Resp Failure; S/P Cardiac Arrest; Acute Encephalopathy Interval history: Patient is seen today for: Acute Hypoxemic Resp Failure; S/P Cardiac Arrest; Acute Encephalopathy Seen and examined at bedside; 24hour events reviewed; nursing and respiratory care staff consulted; no adverse overnight events reported to me; reamins on MVS ; AMS is persistent; no active jerking again; on versed drip at 2mg/hr; FiO2 at 60%; no emesis or overt aspiration Objective Vital Signs - 12hr 11/27/17 11/28/17 11/28/17 23:45 00:00 00:15 Temperature 99.7 F H Pulse Rate 95 H 95 H 97 H Pulse Rate [ Anterior Bilateral Throughout] Respiratory 12 11 L 15 Rate Respiratory Rate [Anterior Bilateral Throughout] Blood Pressure 145/70 142/67 143/73 O2 Sat by Pulse 96 94 97 Oximetry 11/28/17 11/28/17 11/28/17 00:30 00:45 01:00 Temperature Pulse Rate 97 H 98 H 97 H Pulse Rate [ Anterior Bilateral Throughout] Respiratory 15 15 15 Rate Respiratory Rate [Anterior Bilateral Throughout] Blood Pressure 141/68 146/72 146/72 O2 Sat by Pulse 97 97 97 Oximetry 11/28/17 11/28/17 11/28/17 01:15 01:30 01:45 Temperature Pulse Rate 96 H 96 H 93 H Pulse Rate [ Anterior Bilateral Throughout] Respiratory 15 15 11 L Rate Respiratory Rate [Anterior Bilateral Throughout] Blood Pressure 152/77 137/65 124/68 O2 Sat by Pulse 98 97 98 Oximetry 11/28/17 11/28/17 11/28/17 02:00 02:15 02:30 Temperature Pulse Rate 93 H 95 H 96 H Pulse Rate [ Anterior Bilateral Throughout] Respiratory 13 14 14 Rate Respiratory Rate [Anterior Bilateral Throughout] Blood Pressure 129/71 143/71 137/71 O2 Sat by Pulse 98 97 97 Oximetry 11/28/17 11/28/17 11/28/17 02:45 03:00 03:15 Temperature Pulse Rate 97 H 97 H 98 H Pulse Rate [ Anterior Bilateral Throughout] Respiratory 13 19 14 Rate Respiratory Rate [Anterior Bilateral Throughout] Blood Pressure 147/70 137/67 137/67 O2 Sat by Pulse 93 94 92 Oximetry 11/28/17 11/28/17 11/28/17 03:31 03:45 03:47 Temperature Pulse Rate 98 H 98 H Pulse Rate [ Anterior Bilateral Throughout] Respiratory 16 13 Rate Respiratory Rate [Anterior Bilateral Throughout] Blood Pressure 143/71 139/72 O2 Sat by Pulse 92 92 93 Oximetry 11/28/17 11/28/17 11/28/17 04:00 04:15 04:30 Temperature 100.1 F H Pulse Rate 99 H 100 H 99 H Pulse Rate [ Anterior Bilateral Throughout] Respiratory 13 12 14 Rate Respiratory Rate [Anterior Bilateral Throughout] Blood Pressure 149/71 153/76 148/71 O2 Sat by Pulse 92 92 92 Oximetry 11/28/17 11/28/17 11/28/17 04:45 05:00 05:15 Temperature Pulse Rate 100 H 101 H 101 H Pulse Rate [ Anterior Bilateral Throughout] Respiratory 15 13 13 Rate Respiratory Rate [Anterior Bilateral Throughout] Blood Pressure 152/73 143/73 145/71 O2 Sat by Pulse 92 93 93 Oximetry 11/28/17 11/28/17 11/28/17 05:31 05:45 06:00 Temperature Pulse Rate 102 H 100 H 100 H Pulse Rate [ Anterior Bilateral Throughout] Respiratory 14 15 12 Rate Respiratory Rate [Anterior Bilateral Throughout] Blood Pressure 150/71 157/70 150/72 O2 Sat by Pulse 91 93 93 Oximetry 11/28/17 11/28/17 11/28/17 06:15 06:30 06:45 Temperature Pulse Rate 101 H 99 H 98 H Pulse Rate [ Anterior Bilateral Throughout] Respiratory 14 12 18 Rate Respiratory Rate [Anterior Bilateral Throughout] Blood Pressure 147/71 154/74 137/64 O2 Sat by Pulse 93 93 96 Oximetry 11/28/17 11/28/17 11/28/17 07:01 07:15 07:30 Temperature Pulse Rate 93 H 92 H 91 H Pulse Rate [ Anterior Bilateral Throughout] Respiratory 18 18 18 Rate Respiratory Rate [Anterior Bilateral Throughout] Blood Pressure 101/61 105/59 114/64 O2 Sat by Pulse 93 93 93 Oximetry 11/28/17 11/28/17 11/28/17 07:45 08:00 08:15 Temperature 99.7 F H Pulse Rate 90 90 89 Pulse Rate [ Anterior Bilateral Throughout] Respiratory 18 19 18 Rate Respiratory Rate [Anterior Bilateral Throughout] Blood Pressure 105/62 104/62 108/64 O2 Sat by Pulse 93 94 94 Oximetry 11/28/17 11/28/17 11/28/17 08:30 09:01 09:27 Temperature Pulse Rate 89 88 Pulse Rate [ 88 89 Anterior Bilateral Throughout] Respiratory 18 Rate Respiratory 18 18 Rate [Anterior Bilateral Throughout] Blood Pressure 118/66 121/66 O2 Sat by Pulse 94 96 Oximetry Constitutional: other (encephalopathic) Eyes: non-icteric ENT: oropharynx moist, other (ETT in place) Neck: supple, no lymphadenopathy, no JVD, other (No thyromegaly) Effort: mildly labored Ascultation: Bilateral: diminished breath sounds, rhonchi Percussion: Bilateral: not dull Cardiovascular: regular rate and rhythm, other (no rubs/murmurs) Gastrointestinal: hypoactive bowel sounds, soft, non-tender, non-distended, other (No HSM) Integumentary: rash Extremities: no cyanosis, pink and warm, pulses normal, no ischemia or petechiae , edema Neurologic: unable to assess Psychiatric: other (unable to assess re: AMS) CBC and BMP: 11/28/17 03:17 11/28/17 03:17 ABG, PT/INR, D-dimer: ABG POC ABG pH 7.324 (7.35-7.45) L 11/28/17 06:46 POC ABG pCO2 63.4 (35-45) H 11/28/17 06:46 POC ABG pO2 65 (80-105) L 11/28/17 06:46 POC ABG HCO3 33.0 11/28/17 06:46 POC ABG Total CO2 35 11/28/17 06:46 POC ABG O2 Sat 90 11/28/17 06:46 PT/INR, D-dimer PT 15.3 Sec. (12.2-14.9) H 11/23/17 12:44 INR 1.15 (0.87-1.13) H 11/23/17 12:44 D-Dimer 1977.37 ng/mlDDU (0-234) H 11/24/17 14:44 Abnormal lab findings: Abnormal Labs 11/23/17 11/23/17 11/23/17 12:44 12:44 12:44 WBC 13.0 H Hgb Hct 46.1 H MCV 112 H MCH 33 H MCHC 29 L RDW 18.5 H Plt Count Lymph % (Auto) Burt % (Auto) Lymph # Burt # Seg Neutrophils % Seg Neuts % (Manual) 71.0 H Monocytes % (Manual) 8.0 H Nucleated RBC % 6.0 H Seg Neutrophils # Seg Neutrophils # Man 9.2 H Monocytes # (Manual) 1.0 H PT 15.3 H INR 1.15 H D-Dimer POC ABG pH POC ABG pCO2 POC ABG pO2 Sodium Potassium 5.4 H Chloride 85.2 L Carbon Dioxide BUN 19 H Creatinine 1.3 H Glucose 175 H POC Glucose Lactic Acid Calcium AST 310 H ALT 262 H C-Reactive Protein Total Protein 5.7 L Albumin 2.9 L Salicylates 11/23/17 11/23/17 11/23/17 12:44 13:23 15:54 WBC Hgb Hct MCV MCH MCHC RDW Plt Count Lymph % (Auto) Burt % (Auto) Lymph # Burt # Seg Neutrophils % Seg Neuts % (Manual) Monocytes % (Manual) Nucleated RBC % Seg Neutrophils # Seg Neutrophils # Man Monocytes # (Manual) PT INR D-Dimer POC ABG pH 7.035 L POC ABG pCO2 99.1 H POC ABG pO2 343 H Sodium Potassium Chloride Carbon Dioxide BUN Creatinine Glucose POC Glucose Lactic Acid 16.10 H* Calcium AST ALT C-Reactive Protein Total Protein Albumin Salicylates < 0.3 L 11/23/17 11/24/17 11/24/17 16:42 04:03 04:03 WBC 16.8 H Hgb 15.7 H Hct 48.9 H MCV 101 H MCH MCHC RDW 16.5 H Plt Count Lymph % (Auto) 5.2 L Burt % (Auto) Lymph # 0.9 L Burt # 0.9 H Seg Neutrophils % 89.1 H Seg Neuts % (Manual) Monocytes % (Manual) Nucleated RBC % Seg Neutrophils # 14.9 H Seg Neutrophils # Man Monocytes # (Manual) PT INR D-Dimer POC ABG pH POC ABG pCO2 POC ABG pO2 55 L Sodium Potassium Chloride 96.0 L Carbon Dioxide 33 H D BUN 28 H Creatinine 1.5 H Glucose 108 H POC Glucose Lactic Acid Calcium 7.7 L AST 1091 H ALT 986 H C-Reactive Protein Total Protein 5.0 L Albumin 2.8 L Salicylates 11/24/17 11/24/17 11/24/17 05:55 13:29 13:29 WBC Hgb Hct MCV MCH MCHC RDW Plt Count Lymph % (Auto) Burt % (Auto) Lymph # Burt # Seg Neutrophils % Seg Neuts % (Manual) Monocytes % (Manual) Nucleated RBC % Seg Neutrophils # Seg Neutrophils # Man Monocytes # (Manual) PT INR D-Dimer POC ABG pH 7.469 H POC ABG pCO2 52.3 H POC ABG pO2 69 L Sodium Potassium Chloride Carbon Dioxide BUN Creatinine Glucose POC Glucose Lactic Acid 3.20 H* Calcium AST ALT C-Reactive Protein 9.20 H Total Protein Albumin Salicylates 11/24/17 11/24/17 11/25/17 14:44 20:55 01:55 WBC Hgb Hct MCV MCH MCHC RDW Plt Count Lymph % (Auto) Burt % (Auto) Lymph # Burt # Seg Neutrophils % Seg Neuts % (Manual) Monocytes % (Manual) Nucleated RBC % Seg Neutrophils # Seg Neutrophils # Man Monocytes # (Manual) PT INR D-Dimer 1977.37 H POC ABG pH 7.471 H POC ABG pCO2 56.2 H POC ABG pO2 Sodium Potassium Chloride Carbon Dioxide BUN Creatinine Glucose POC Glucose Lactic Acid 3.00 H* Calcium AST ALT C-Reactive Protein Total Protein Albumin Salicylates 11/25/17 11/25/17 11/25/17 03:02 03:02 03:02 WBC 16.0 H Hgb Hct MCV 99 H MCH MCHC RDW 16.0 H Plt Count Lymph % (Auto) 11.6 L Burt % (Auto) Lymph # Burt # 1.0 H Seg Neutrophils % 81.8 H Seg Neuts % (Manual) Monocytes % (Manual) Nucleated RBC % Seg Neutrophils # 13.1 H Seg Neutrophils # Man Monocytes # (Manual) PT INR D-Dimer POC ABG pH POC ABG pCO2 POC ABG pO2 Sodium 148 H Potassium Chloride Carbon Dioxide 35 H BUN 30 H Creatinine 1.9 H Glucose 106 H POC Glucose Lactic Acid 2.90 H* Calcium 7.0 L AST ALT C-Reactive Protein Total Protein Albumin Salicylates 11/25/17 11/25/17 11/25/17 03:02 03:35 07:15 WBC Hgb Hct MCV MCH MCHC RDW Plt Count Lymph % (Auto) Burt % (Auto) Lymph # Burt # Seg Neutrophils % Seg Neuts % (Manual) Monocytes % (Manual) Nucleated RBC % Seg Neutrophils # Seg Neutrophils # Man Monocytes # (Manual) PT INR D-Dimer POC ABG pH 7.494 H POC ABG pCO2 48.1 H POC ABG pO2 Sodium Potassium Chloride Carbon Dioxide BUN Creatinine Glucose POC Glucose Lactic Acid 2.30 H* Calcium AST 300 H ALT 561 H C-Reactive Protein Total Protein 4.5 L Albumin 2.4 L Salicylates 11/26/17 11/26/17 11/26/17 03:26 03:26 03:52 WBC 12.7 H Hgb 14.9 H Hct 45.9 H MCV 98 H MCH MCHC RDW 16.3 H Plt Count 137 L Lymph % (Auto) 10.0 L Burt % (Auto) Lymph # Burt # Seg Neutrophils % 82.7 H Seg Neuts % (Manual) Monocytes % (Manual) Nucleated RBC % Seg Neutrophils # 10.5 H Seg Neutrophils # Man Monocytes # (Manual) PT INR D-Dimer POC ABG pH 7.475 H POC ABG pCO2 POC ABG pO2 71 L Sodium 150 H Potassium 3.3 L Chloride Carbon Dioxide BUN 22 H Creatinine 1.7 H Glucose 107 H POC Glucose Lactic Acid Calcium 7.5 L AST ALT C-Reactive Protein Total Protein Albumin Salicylates 11/26/17 11/26/17 11/26/17 11:49 17:53 23:56 WBC Hgb Hct MCV MCH MCHC RDW Plt Count Lymph % (Auto) Burt % (Auto) Lymph # Burt # Seg Neutrophils % Seg Neuts % (Manual) Monocytes % (Manual) Nucleated RBC % Seg Neutrophils # Seg Neutrophils # Man Monocytes # (Manual) PT INR D-Dimer POC ABG pH POC ABG pCO2 POC ABG pO2 Sodium Potassium Chloride Carbon Dioxide BUN Creatinine Glucose POC Glucose 109 H 168 H 145 H Lactic Acid Calcium AST ALT C-Reactive Protein Total Protein Albumin Salicylates 11/27/17 11/27/17 11/27/17 04:22 04:22 04:53 WBC 11.7 H Hgb 15.7 H Hct 49.8 H MCV 100 H MCH MCHC RDW 16.4 H Plt Count 105 L Lymph % (Auto) 7.6 L Burt % (Auto) 8.7 H Lymph # 0.9 L Burt # 1.0 H Seg Neutrophils % 83.2 H Seg Neuts % (Manual) Monocytes % (Manual) Nucleated RBC % Seg Neutrophils # 9.7 H Seg Neutrophils # Man Monocytes # (Manual) PT INR D-Dimer POC ABG pH POC ABG pCO2 53.1 H POC ABG pO2 70 L Sodium 155 H Potassium Chloride 113.1 H Carbon Dioxide BUN Creatinine 1.5 H Glucose 128 H POC Glucose Lactic Acid Calcium 7.4 L AST ALT C-Reactive Protein Total Protein Albumin Salicylates 11/27/17 11/27/17 11/27/17 05:34 11:27 16:18 WBC Hgb Hct MCV MCH MCHC RDW Plt Count Lymph % (Auto) Burt % (Auto) Lymph # Burt # Seg Neutrophils % Seg Neuts % (Manual) Monocytes % (Manual) Nucleated RBC % Seg Neutrophils # Seg Neutrophils # Man Monocytes # (Manual) PT INR D-Dimer POC ABG pH POC ABG pCO2 POC ABG pO2 Sodium Potassium Chloride Carbon Dioxide BUN Creatinine Glucose POC Glucose 120 H 129 H Lactic Acid Calcium AST ALT C-Reactive Protein 13.70 H Total Protein Albumin Salicylates 11/27/17 11/27/17 11/28/17 17:19 23:56 03:17 WBC 14.5 H Hgb 15.2 H Hct 48.3 H MCV 99 H MCH MCHC RDW 16.5 H Plt Count 108 L Lymph % (Auto) 9.7 L Burt % (Auto) Lymph # Burt # 1.0 H Seg Neutrophils % 81.0 H Seg Neuts % (Manual) Monocytes % (Manual) Nucleated RBC % Seg Neutrophils # 11.8 H Seg Neutrophils # Man Monocytes # (Manual) PT INR D-Dimer POC ABG pH POC ABG pCO2 POC ABG pO2 Sodium Potassium Chloride Carbon Dioxide BUN Creatinine Glucose POC Glucose 138 H 125 H Lactic Acid Calcium AST ALT C-Reactive Protein Total Protein Albumin Salicylates 11/28/17 11/28/17 11/28/17 03:17 05:34 06:46 WBC Hgb Hct MCV MCH MCHC RDW Plt Count Lymph % (Auto) Burt % (Auto) Lymph # Burt # Seg Neutrophils % Seg Neuts % (Manual) Monocytes % (Manual) Nucleated RBC % Seg Neutrophils # Seg Neutrophils # Man Monocytes # (Manual) PT INR D-Dimer POC ABG pH 7.324 L POC ABG pCO2 63.4 H POC ABG pO2 65 L Sodium 150 H Potassium 3.4 L Chloride 107.9 H Carbon Dioxide 31 H BUN 19 H Creatinine 1.3 H Glucose 126 H POC Glucose 132 H Lactic Acid Calcium 7.7 L AST ALT C-Reactive Protein Total Protein Albumin Salicylates Chest x-ray: image reviewed (fleeting infiltrates no pneumothorax) Allied health notes reviewed: nursing
--- NOTE | 2017-11-28 12:37 | Ultrasound Report ---
ULTRASOUND PELVIS LIMITED History: Renal failure. Findings: Transabdominal ultrasound images were obtained in the area of the bladder. The bladder is collapsed with evidence of a Godfrey catheter. No obvious abnormality on this limited exam. Impression: The bladder is empty and contains a Godfrey catheter.
--- NOTE | 2017-11-28 13:49 | Progress Note ---
Assessment and Plan This unfortunate 56 year old female who was found pulseless, in asystole on and resuscitated, remains with no neurological function at this time. CT confirms severe anoxic damage. Plan - Will check if EEG has been done. Subjective Date of service: 11/28/17 Principal diagnosis: Acute Hypoxemic Resp Failure; S/P Cardiac Arrest; Acute Encephalopathy Interval history: This 56 year old female was found down on 11/23/17, lives in a dwelling with another family. She was found by the homeowner who called EMS. When they arrived she was cold and without pulse. A cardiac rhythm was obtained with epinephrine injection and ACLS protocol followed. The pt. has a history of type II diabetes, COPD. She smokes 1 1/2 PPD for 30 years. She developed myoclonus after admission to [facility] which seems to be under control withKeppra and oxcarbazepine. CT from 11/26/17 reveals cerebral edema with some sparing of right frontal areas. There is ischemic change in bilateral basal ganglia, cerebellum. Consistent with anoxic encephalopathy. Objective - Exam Narrative Exam: HEENT - no myoclonus or seizure activity. eyes closed. pupils 3 to 4 mm and not reactive. Heart - rate of 84. Regular. Nl S-1 and S-2. Lungs - end inspiratory and expiratory wheeze Abdomen - soft. min. bowel sounds.\ Extremities - no edema. no lesions. Neuro - unresponsive on ventilator. 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 face symmetric. Motor - no spontaneous movement. no movement to deep pain stimuli bilaterally. Sensory - as above. Reflexes - absent throughout. - Vital Sign Vital Signs - 12hr 11/28/17 11/28/17 11/28/17 02:00 02:15 02:30 Temperature Pulse Rate 93 H 95 H 96 H Pulse Rate [ Anterior Bilateral Throughout] Respiratory 13 14 14 Rate Respiratory Rate [Anterior Bilateral Throughout] Blood Pressure 129/71 143/71 137/71 O2 Sat by Pulse 98 97 97 Oximetry 11/28/17 11/28/17 11/28/17 02:45 03:00 03:15 Temperature Pulse Rate 97 H 97 H 98 H Pulse Rate [ Anterior Bilateral Throughout] Respiratory 13 19 14 Rate Respiratory Rate [Anterior Bilateral Throughout] Blood Pressure 147/70 137/67 137/67 O2 Sat by Pulse 93 94 92 Oximetry 11/28/17 11/28/1711/28/18 03:31 03:45 03:47 Temperature Pulse Rate 98 H 98 H Pulse Rate [ Anterior Bilateral Throughout] Respiratory 16 13 Rate Respiratory Rate [Anterior Bilateral Throughout] Blood Pressure 143/71 139/72 O2 Sat by Pulse 92 92 93 Oximetry 11/28/17 11/28/17 11/28/17 04:00 04:15 04:30 Temperature 100.1 F H Pulse Rate 99 H 100 H 99 H Pulse Rate [ Anterior Bilateral Throughout] Respiratory 13 12 14 Rate Respiratory Rate [Anterior Bilateral Throughout] Blood Pressure 149/71 153/76 148/71 O2 Sat by Pulse 92 92 92 Oximetry 11/28/17 11/28/17 11/28/17 04:45 05:00 05:15 Temperature Pulse Rate 100 H 101 H 101 H Pulse Rate [ Anterior Bilateral Throughout] Respiratory 15 13 13 Rate Respiratory Rate [Anterior Bilateral Throughout] Blood Pressure 152/73 143/73 145/71 O2 Sat by Pulse 92 93 93 Oximetry 11/28/17 11/28/17 11/28/17 05:31 05:45 06:00 Temperature Pulse Rate 102 H 100 H 100 H Pulse Rate [ Anterior Bilateral Throughout] Respiratory 14 15 12 Rate Respiratory Rate [Anterior Bilateral Throughout] Blood Pressure 150/71 157/70 150/72 O2 Sat by Pulse 91 93 93 Oximetry 11/28/17 11/28/17 11/28/17 06:15 06:30 06:45 Temperature Pulse Rate 101 H 99 H 98 H Pulse Rate [ Anterior Bilateral Throughout] Respiratory 14 12 18 Rate Respiratory Rate [Anterior Bilateral Throughout] Blood Pressure 147/71 154/74 137/64 O2 Sat by Pulse 93 93 96 Oximetry 11/28/17 11/28/17 11/28/17 07:01 07:15 07:30 Temperature Pulse Rate 93 H 92 H 91 H Pulse Rate [ Anterior Bilateral Throughout] Respiratory 18 18 18 Rate Respiratory Rate [Anterior Bilateral Throughout] Blood Pressure 101/61 105/59 114/64 O2 Sat by Pulse 93 93 93 Oximetry 11/28/17 11/28/17 11/28/17 07:45 08:00 08:15 Temperature 99.7 F H Pulse Rate 90 90 89 Pulse Rate [ Anterior Bilateral Throughout] Respiratory 18 19 18 Rate Respiratory Rate [Anterior Bilateral Throughout] Blood Pressure 105/62 104/62 108/64 O2 Sat by Pulse 93 94 94 Oximetry 11/28/17 11/28/17 11/28/17 08:30 09:01 09:27 Temperature Pulse Rate 89 88 Pulse Rate [ 88 89 Anterior Bilateral Throughout] Respiratory 18 Rate Respiratory 18 18 Rate [Anterior Bilateral Throughout] Blood Pressure 118/66 121/66 O2 Sat by Pulse 94 96 Oximetry 11/28/17 11/28/17 12:00 13:20 Temperature 99.3 F Pulse Rate 84 Pulse Rate [ Anterior Bilateral Throughout] Respiratory Rate Respiratory Rate [Anterior Bilateral Throughout] Blood Pressure 140/66 O2 Sat by Pulse 65 L Oximetry - Laboratory Findings CBC and BMP: 11/28/17 03:17 11/28/17 03:17 Abnormal Lab Findings: Abnormal Labs 11/23/17 11/23/17 11/23/17 12:44 12:44 12:44 WBC 13.0 H Hgb Hct 46.1 H MCV 112 H MCH 33 H MCHC 29 L RDW 18.5 H Plt Count Lymph % (Auto) [place] % (Auto) Lymph # [place] # Seg Neutrophils % Seg Neuts % (Manual) 71.0 H Monocytes % (Manual) 8.0 H Nucleated RBC % 6.0 H Seg Neutrophils # Seg Neutrophils # Man 9.2 H Monocytes # (Manual) 1.0 H PT 15.3 H INR 1.15 H D-Dimer POC ABG pH POC ABG pCO2 POC ABG pO2 Sodium Potassium 5.4 H Chloride 85.2 L Carbon Dioxide BUN 19 H Creatinine 1.3 H Glucose 175 H POC Glucose Lactic Acid Calcium AST 310 H ALT 262 H C-Reactive Protein Total Protein 5.7 L Albumin 2.9 L Salicylates 11/23/17 11/23/17 11/23/17 12:44 13:23 15:54 WBC Hgb Hct MCV MCH MCHC RDW Plt Count Lymph % (Auto) [place] % (Auto) Lymph # [place] # Seg Neutrophils % Seg Neuts % (Manual) Monocytes % (Manual) Nucleated RBC % Seg Neutrophils # Seg Neutrophils # Man Monocytes # (Manual) PT INR D-Dimer POC ABG pH 7.035 L POC ABG pCO2 99.1 H POC ABG pO2 343 H Sodium Potassium Chloride Carbon Dioxide BUN Creatinine Glucose POC Glucose Lactic Acid 16.10 H* Calcium AST ALT C-Reactive Protein Total Protein Albumin Salicylates < 0.3 L 11/23/17 11/24/17 11/24/17 16:42 04:03 04:03 WBC 16.8 H Hgb 15.7 H Hct 48.9 H MCV 101 H MCH MCHC RDW 16.5 H Plt Count Lymph % (Auto) 5.2 L [place] % (Auto) Lymph # 0.9 L [place] # 0.9 H Seg Neutrophils % 89.1 H Seg Neuts % (Manual) Monocytes % (Manual) Nucleated RBC % Seg Neutrophils # 14.9 H Seg Neutrophils # Man Monocytes # (Manual) PT INR D-Dimer POC ABG pH POC ABG pCO2 POC ABG pO2 55 L Sodium Potassium Chloride 96.0 L Carbon Dioxide 33 H D BUN 28 H Creatinine 1.5 H Glucose 108 H POC Glucose Lactic Acid Calcium 7.7 L AST 1091 H ALT 986 H C-Reactive Protein Total Protein 5.0 L Albumin 2.8 L Salicylates 11/24/17 11/24/17 11/24/17 05:55 13:29 13:29 WBC Hgb Hct MCV MCH MCHC RDW Plt Count Lymph % (Auto) [place] % (Auto) Lymph # [place] # Seg Neutrophils % Seg Neuts % (Manual) Monocytes % (Manual) Nucleated RBC % Seg Neutrophils # Seg Neutrophils # Man Monocytes # (Manual) PT INR D-Dimer POC ABG pH 7.469 H POC ABG pCO2 52.3 H POC ABG pO2 69 L Sodium Potassium Chloride Carbon Dioxide BUN Creatinine Glucose POC Glucose Lactic Acid 3.20 H* Calcium AST ALT C-Reactive Protein 9.20 H Total Protein Albumin Salicylates 11/24/17 11/24/17 11/25/17 14:44 20:55 01:55 WBC Hgb Hct MCV MCH MCHC RDW Plt Count Lymph % (Auto) [place] % (Auto) Lymph # [place] # Seg Neutrophils % Seg Neuts % (Manual) Monocytes % (Manual) Nucleated RBC % Seg Neutrophils # Seg Neutrophils # Man Monocytes # (Manual) PT INR D-Dimer 1977.37 H POC ABG pH 7.471 H POC ABG pCO2 56.2 H POC ABG pO2 Sodium Potassium Chloride Carbon Dioxide BUN Creatinine Glucose POC Glucose Lactic Acid 3.00 H* Calcium AST ALT C-Reactive Protein Total Protein Albumin Salicylates 11/25/17 11/25/17 11/25/17 03:02 03:02 03:02 WBC 16.0 H Hgb Hct MCV 99 H MCH MCHC RDW 16.0 H Plt Count Lymph % (Auto) 11.6 L [place] % (Auto) Lymph # [place] # 1.0 H Seg Neutrophils % 81.8 H Seg Neuts % (Manual) Monocytes % (Manual) Nucleated RBC % Seg Neutrophils # 13.1 H Seg Neutrophils # Man Monocytes # (Manual) PT INR D-Dimer POC ABG pH POC ABG pCO2 POC ABG pO2 Sodium 148 H Potassium Chloride Carbon Dioxide 35 H BUN 30 H Creatinine 1.9 H Glucose 106 H POC Glucose Lactic Acid 2.90 H* Calcium 7.0 L AST ALT C-Reactive Protein Total Protein Albumin Salicylates 11/25/17 11/25/17 11/25/17 03:02 03:35 07:15 WBC Hgb Hct MCV MCH MCHC RDW Plt Count Lymph % (Auto) [place] % (Auto) Lymph # [place] # Seg Neutrophils % Seg Neuts % (Manual) Monocytes % (Manual) Nucleated RBC % Seg Neutrophils # Seg Neutrophils # Man Monocytes # (Manual) PT INR D-Dimer POC ABG pH 7.494 H POC ABG pCO2 48.1 H POC ABG pO2 Sodium Potassium Chloride Carbon Dioxide BUN Creatinine Glucose POC Glucose Lactic Acid 2.30 H* Calcium AST 300 H ALT 561 H C-Reactive Protein Total Protein 4.5 L Albumin 2.4 L Salicylates 11/26/17 11/26/17 11/26/17 03:26 03:26 03:52 WBC 12.7 H Hgb 14.9 H Hct 45.9 H MCV 98 H MCH MCHC RDW 16.3 H Plt Count 137 L Lymph % (Auto) 10.0 L [place] % (Auto) Lymph # [place] # Seg Neutrophils % 82.7 H Seg Neuts % (Manual) Monocytes % (Manual) Nucleated RBC % Seg Neutrophils # 10.5 H Seg Neutrophils # Man Monocytes # (Manual) PT INR D-Dimer POC ABG pH 7.475 H POC ABG pCO2 POC ABG pO2 71 L Sodium 150 H Potassium 3.3 L Chloride Carbon Dioxide BUN 22 H Creatinine 1.7 H Glucose 107 H POC Glucose Lactic Acid Calcium 7.5 L AST ALT C-Reactive Protein Total Protein Albumin Salicylates 11/26/17 11/26/17 11/26/17 11:49 17:53 23:56 WBC Hgb Hct MCV MCH MCHC RDW Plt Count Lymph % (Auto) [place] % (Auto) Lymph # [place] # Seg Neutrophils % Seg Neuts % (Manual) Monocytes % (Manual) Nucleated RBC % Seg Neutrophils # Seg Neutrophils # Man Monocytes # (Manual) PT INR D-Dimer POC ABG pH POC ABG pCO2 POC ABG pO2 Sodium Potassium Chloride Carbon Dioxide BUN Creatinine Glucose POC Glucose 109 H 168 H 145 H Lactic Acid Calcium AST ALT C-Reactive Protein Total Protein Albumin Salicylates 11/27/17 11/27/17 11/27/17 04:22 04:22 04:53 WBC 11.7 H Hgb 15.7 H Hct 49.8 H MCV 100 H MCH MCHC RDW 16.4 H Plt Count 105 L Lymph % (Auto) 7.6 L [place] % (Auto) 8.7 H Lymph # 0.9 L [place] # 1.0 H Seg Neutrophils % 83.2 H Seg Neuts % (Manual) Monocytes % (Manual) Nucleated RBC % Seg Neutrophils # 9.7 H Seg Neutrophils # Man Monocytes # (Manual) PT INR D-Dimer POC ABG pH POC ABG pCO2 53.1 H POC ABG pO2 70 L Sodium 155 H Potassium Chloride 113.1 H Carbon Dioxide BUN Creatinine 1.5 H Glucose 128 H POC Glucose Lactic Acid Calcium 7.4 L AST ALT C-Reactive Protein Total Protein Albumin Salicylates 11/27/17 11/27/17 11/27/17 05:34 11:27 16:18 WBC Hgb Hct MCV MCH MCHC RDW Plt Count Lymph % (Auto) [place] % (Auto) Lymph # [place] # Seg Neutrophils % Seg Neuts % (Manual) Monocytes % (Manual) Nucleated RBC % Seg Neutrophils # Seg Neutrophils # Man Monocytes # (Manual) PT INR D-Dimer POC ABG pH POC ABG pCO2 POC ABG pO2 Sodium Potassium Chloride Carbon Dioxide BUN Creatinine Glucose POC Glucose 120 H 129 H Lactic Acid Calcium AST ALT C-Reactive Protein 13.70 H Total Protein Albumin Salicylates 11/27/17 11/27/17 11/28/17 17:19 23:56 03:17 WBC 14.5 H Hgb 15.2 H Hct 48.3 H MCV 99 H MCH MCHC RDW 16.5 H Plt Count 108 L Lymph % (Auto) 9.7 L [place] % (Auto) Lymph # [place] # 1.0 H Seg Neutrophils % 81.0 H Seg Neuts % (Manual) Monocytes % (Manual) Nucleated RBC % Seg Neutrophils # 11.8 H Seg Neutrophils # Man Monocytes # (Manual) PT INR D-Dimer POC ABG pH POC ABG pCO2 POC ABG pO2 Sodium Potassium Chloride Carbon Dioxide BUN Creatinine Glucose POC Glucose 138 H 125 H Lactic Acid Calcium AST ALT C-Reactive Protein Total Protein Albumin Salicylates 11/28/17 11/28/17 11/28/17 03:17 05:34 06:46 WBC Hgb Hct MCV MCH MCHC RDW Plt Count Lymph % (Auto) [place] % (Auto) Lymph # [place] # Seg Neutrophils % Seg Neuts % (Manual) Monocytes % (Manual) Nucleated RBC % Seg Neutrophils # Seg Neutrophils # Man Monocytes # (Manual) PT INR D-Dimer POC ABG pH 7.324 L POC ABG pCO2 63.4 H POC ABG pO2 65 L Sodium 150 H Potassium 3.4 L Chloride 107.9 H Carbon Dioxide 31 H BUN 19 H Creatinine 1.3 H Glucose 126 H POC Glucose 132 H Lactic Acid Calcium 7.7 L AST ALT C-Reactive Protein Total Protein Albumin Salicylates
--- NOTE | 2017-11-28 14:30 | Progress Note ---
Assessment and Plan Assessment: 1) Sepsis: . Etiology most likely pneumonia +/- cardiac arrest +/- central fever +/- influenza. CRP=13 2) Post-cardiac arrest at home 3) Respiratory failure 6) Presumed LLL pneumonia: ? Aspiration pneumonia. Resp cx + Candace likely a colonizer 7) Encephalopathy / seizures: presumed anoxic brain injury 8) TAMARA 9) COPD 10 ) Elevated LFTs ? from sepsis 11) Alcohol and tobacco abuse Plan: -f/u respiratory cultures -check influenza antigen in nasopharinx - pending -continue zosyn day 2 -continue tamiflu day 2 -check viral hepatitis panel - pending Thank you for your consultation, will follow up with you. Kailey Torre MD Infectious Diseases Specialist [facility] ([facility] M [phone] O [phone] Subjective Date of service: 11/28/17 Principal diagnosis: Acute Hypoxemic Resp Failure; S/P Cardiac Arrest; Acute Encephalopathy Interval history: Remians on the vent fio2 60% p 8, fever trending down - 100.7 Microbiology: Blood cultures: 11/24 ngtd Urine cultures: 11/24 ngtd Respiratory cultures: 11/23 Candace labicans Current Antimicrobials: Zosyn 11/23 Previous Antimicrobials: Vancomycin 11/23 Objective - Exam Narrative Exam: General appearance: sedated on the vent Eyes: anicteric sclerae, moist conjunctivae; no lid-lag; PERRLA HENT: Atraumatic; oropharynx +ETT Neck: Trachea midline; supple, no thyromegaly or lymphadenopathy Lungs: polo rhonchi CV: tachy Abdomen: Soft, non-tender; no masses or hepatosplenomegaly Extremities: mild peripheral edema, no extremity lymphadenopathy Skin: Normal temperature, turgor and texture; no rash, ulcers or subcutaneous nodules Psych: sedated. Neuro: sedated Lines: No CVL / PICC - Constitutional Vitals: Vital Signs Temp Pulse Resp BP Pulse Ox 99.3 F 84 18 140/66 65 L 11/28/17 12:00 11/28/17 13:20 11/28/17 09:27 11/28/17 13:20 11/28/17 13:20 Temperature -Last 24 Hours Temperature 99.3 F Temperature 99.7 F Temperature 100.1 F Temperature 99.7 F Temperature 100.0 F Temperature 99.6 F - Labs CBC & Chem 7: 11/28/17 03:17 11/28/17 03:17 Labs: Abnormal lab results 11/27/17 11/27/17 11/27/17 Range/Units 16:18 17:19 23:56 WBC (4.5-11.0) K/mm3 Hgb (10.1-14.3) gm/dl Hct (30.3-42.9) % MCV (79-97) fl RDW (13.2-15.2) % Plt Count (140-440) K/mm3 Lymph % (Auto) (13.4-35.0) % [place] # (0.0-0.8) K/mm3 Seg Neutrophils % (40.0-70.0) % Seg Neutrophils # (1.8-7.7) K/mm3 POC ABG pH (7.35-7.45) POC ABG pCO2 (35-45) POC ABG pO2 (80-105) Sodium (137-145) mmol/L Potassium (3.6-5.0) mmol/L Chloride (98-107) mmol/L Carbon Dioxide (22-30) mmol/L BUN (7-17) mg/dL Creatinine (0.7-1.2) mg/dL Glucose (65-100) mg/dL POC Glucose 138 H 125 H (70-105) Calcium (8.4-10.2) mg/dL C-Reactive Protein 13.70 H (0.00-1.30) mg/dL 11/28/17 11/28/17 11/28/17 Range/Units 03:17 03:17 05:34 WBC 14.5 H (4.5-11.0) K/mm3 Hgb 15.2 H (10.1-14.3) gm/dl Hct 48.3 H (30.3-42.9) % MCV 99 H (79-97) fl RDW 16.5 H (13.2-15.2) % Plt Count 108 L (140-440) K/mm3 Lymph % (Auto) 9.7 L (13.4-35.0) % [place] # 1.0 H (0.0-0.8) K/mm3 Seg Neutrophils % 81.0 H (40.0-70.0) % Seg Neutrophils # 11.8 H (1.8-7.7) K/mm3 POC ABG pH (7.35-7.45) POC ABG pCO2 (35-45) POC ABG pO2 (80-105) Sodium 150 H (137-145) mmol/L Potassium 3.4 L (3.6-5.0) mmol/L Chloride 107.9 H (98-107) mmol/L Carbon Dioxide 31 H (22-30) mmol/L BUN 19 H (7-17) mg/dL Creatinine 1.3 H (0.7-1.2) mg/dL Glucose 126 H (65-100) mg/dL POC Glucose 132 H (70-105) Calcium 7.7 L (8.4-10.2) mg/dL C-Reactive Protein (0.00-1.30) mg/dL 11/28/17 Range/Units 06:46 WBC (4.5-11.0) K/mm3 Hgb (10.1-14.3) gm/dl Hct (30.3-42.9) % MCV (79-97) fl RDW (13.2-15.2) % Plt Count (140-440) K/mm3 Lymph % (Auto) (13.4-35.0) % [place] # (0.0-0.8) K/mm3 Seg Neutrophils % (40.0-70.0) % Seg Neutrophils # (1.8-7.7) K/mm3 POC ABG pH 7.324 L (7.35-7.45) POC ABG pCO2 63.4 H (35-45) POC ABG pO2 65 L (80-105) Sodium (137-145) mmol/L Potassium (3.6-5.0) mmol/L Chloride (98-107) mmol/L Carbon Dioxide (22-30) mmol/L BUN (7-17) mg/dL Creatinine (0.7-1.2) mg/dL Glucose (65-100) mg/dL POC Glucose (70-105) Calcium (8.4-10.2) mg/dL C-Reactive Protein (0.00-1.30) mg/dL
--- NOTE | 2017-11-28 14:42 | XRay Report ---
SUPINE KUB: History: Nasogastric tube placement. A nasogastric tube has been inserted which terminates in the fundus of the stomach. The abdominal gas pattern is unremarkable. No masses or organomegaly is identified and there is no gross evidence of free air or fluid. No significant soft tissue calcifications are noted. IMPRESSION: Normal study.
[2017-11-28] MEDS: REGLAN PO SCH ×2 (14:58→21:33)
[2017-11-28] MEDS: CARDENE 50 MG in NACL 0.9% 250ML 230 ML IV SCH ×2 (20:53→23:50)
--- NOTE | 2017-11-29 02:40 | XRay Report ---
FINAL REPORT EXAM: XR CHEST 1V AP HISTORY: Follow-up respiratory failure. TECHNIQUE: A single frontal portable radiograph of the chest was obtained. Comparison is made with prior study 11/27/2017. FINDINGS: The cardiac silhouette and mediastinum are within normal limits. An endotracheal tube remains in place with its tip 5-6 cm above the barbara. A nasogastric tube traverses the thorax into the stomach, though its tip is not included on this film. There is mild pulmonary vascular congestion, stable. The left basilar infiltrate is stable in appearance. There are moderate right infrahilar and right basilar infiltrates, which have progressed compared to prior exam. The faint infiltrate in the left lateral midlung is stable in appearance. There is no pleural effusion or pneumothorax. No significant osseous abnormalities are identified. IMPRESSION: Moderate right infrahilar and right basilar infiltrates, progressed compared to 11/27/2017. Additional findings, otherwise stable in appearance.
[2017-11-29] MEDS: ZOSYN/NS 4.5GM/100ML 4.5 GM/100 ML VIAL IV SCH ×3 (03:03→17:46)
[2017-11-29] MEDS: DUONEB *Not for PRN Use IH SCH ×4 (04:25→19:19)
[2017-11-29] MEDS: CARDENE 50 MG in NACL 0.9% 250ML 230 ML IV SCH ×2 (04:32→23:10)
[2017-11-29] MEDS: HEPARIN SUB-Q SCH ×3 (05:16→21:29)
[2017-11-29] MEDS: KEPPRA IV SCH ×4 (05:16→23:17)
[2017-11-29] MEDS: REGLAN PO SCH ×3 (05:16→21:32)
[2017-11-29] MEDS: D5W IV SCH ×4 (05:16→23:17)
[2017-11-29 05:52] LABS: Basophils # (Auto) 0.1 K/mm3 (0.0-0.1); Basophils % (Auto) 0.6 % (0.0-1.8); Eosinophils # (Auto) 0.5 K/mm3 (0.0-0.4); Eosinophils % (Auto) 3.6 % (0.0-4.3); Hematocrit 51.2 % (30.3-42.9); Hemoglobin 16.4 gm/dl (10.1-14.3); Lymphocytes # (Auto) 1.1 K/mm3 (1.2-5.4); Lymphocytes % (Auto) 7.6 % (13.4-35.0); Mean Corpuscular HGB Conc 32 % (30-34); Mean Corpuscular Hemoglobin 31 pg (28-32); Mean Corpuscular Volume 96 fl (79-97); Monocytes # (Auto) 0.9 K/mm3 (0.0-0.8); Monocytes % (Auto) 6.7 % (0.0-7.3); Red Blood Count 5.32 M/mm3 (3.65-5.03); Red Cell Distribution Width 15.8 % (13.2-15.2)
[2017-11-29 05:55] LABS: Platelet Count 77 K/mm3 (140-440)
[2017-11-29 05:58] LABS: Calcium 8.2 mg/dL (8.4-10.2)
--- NOTE | 2017-11-29 09:33 | Progress Note ---
Assessment and Plan Impression: * Hypernatremia * TAMARA * S/P cardiac arress * Anoxia * Acute resp failure * hypokalemia Plan: * added d5w and kcl, follow up am lytes * sodium is better * increased k in ivfs, improved k level today * follow up mag levels * rule out central diabetes insipidus * daily lytes * ua noted * neuro note reviewed, poor prognosis, ? brain Subjective Date of service: 11/29/17 Principal diagnosis: Acute Hypoxemic Resp Failure; S/P Cardiac Arrest; Acute Encephalopathy Interval history: resting in bed today, no acute events Objective - Exam Narrative Exam: General Appearance: well developed well nourished (per BMI) late 50s white female, intubated HEENT: atraumatic, normocephalic; no bruits, 2+ Aj without soreness or induration or enlargement, sclerae nonicteric. Oropharynx pink and moist. Neck: supple, no bruits. Heart: no murmur or extra sounds. Extremities: no clubbing, cyanosis or edema. No posterior tibial or dorsalis pedis pulses palpable on either side. - Vital Signs Vital signs: Vital Signs - 12hr 11/28/17 11/28/17 11/28/17 21:45 22:00 22:15 Temperature Pulse Rate 85 85 86 Pulse Rate [ Anterior Bilateral Throughout] Respiratory 18 18 18 Rate Respiratory Rate [Anterior Bilateral Throughout] Blood Pressure 129/72 126/72 126/72 O2 Sat by Pulse 95 95 95 Oximetry 11/28/17 11/28/17 11/28/17 22:31 22:45 23:01 Temperature Pulse Rate 87 87 88 Pulse Rate [ Anterior Bilateral Throughout] Respiratory 18 18 18 Rate Respiratory Rate [Anterior Bilateral Throughout] Blood Pressure 120/72 120/72 126/75 O2 Sat by Pulse 95 95 95 Oximetry 11/28/17 11/28/17 11/28/17 23:12 23:15 23:17 Temperature Pulse Rate 88 88 88 Pulse Rate [ Anterior Bilateral Throughout] Respiratory 18 18 18 Rate Respiratory Rate [Anterior Bilateral Throughout] Blood Pressure 153/72 126/75 165/73 O2 Sat by Pulse 95 95 95 Oximetry 11/28/17 11/28/17 11/29/17 23:30 23:45 00:00 Temperature Pulse Rate 90 91 H 106 H Pulse Rate [ Anterior Bilateral Throughout] Respiratory 18 18 22 Rate Respiratory Rate [Anterior Bilateral Throughout] Blood Pressure 160/76 165/76 178/78 O2 Sat by Pulse 95 95 95 Oximetry 11/29/17 11/29/17 11/29/17 00:15 00:25 00:30 Temperature Pulse Rate 105 H 105 H 106 H Pulse Rate [ Anterior Bilateral Throughout] Respiratory 21 16 19 Rate Respiratory Rate [Anterior Bilateral Throughout] Blood Pressure 180/79 163/68 O2 Sat by Pulse 96 95 95 Oximetry 11/29/17 11/29/17 11/29/17 00:38 00:45 01:00 Temperature 99.2 F Pulse Rate 105 H 105 H Pulse Rate [ Anterior Bilateral Throughout] Respiratory 20 21 Rate Respiratory Rate [Anterior Bilateral Throughout] Blood Pressure 151/69 147/70 O2 Sat by Pulse 96 97 Oximetry 11/29/17 11/29/17 11/29/17 01:15 01:30 01:45 Temperature Pulse Rate 107 H 107 H Pulse Rate [ Anterior Bilateral Throughout] Respiratory 20 22 Rate Respiratory Rate [Anterior Bilateral Throughout] Blood Pressure 161/69 156/66 162/74 O2 Sat by Pulse 94 94 94 Oximetry 11/29/17 11/29/17 11/29/17 02:00 02:01 02:15 Temperature Pulse Rate 110 H 109 H Pulse Rate [ 107 H Anterior Bilateral Throughout] Respiratory 25 H 23 Rate Respiratory 24 Rate [Anterior Bilateral Throughout] Blood Pressure 160/59 146/69 O2 Sat by Pulse 95 93 Oximetry 11/29/17 11/29/17 11/29/17 02:30 02:45 03:00 Temperature Pulse Rate 110 H 110 H 109 H Pulse Rate [ Anterior Bilateral Throughout] Respiratory 25 H 23 23 Rate Respiratory Rate [Anterior Bilateral Throughout] Blood Pressure 144/70 138/68 134/72 O2 Sat by Pulse 93 93 94 Oximetry 11/29/17 11/29/17 11/29/17 03:15 03:30 03:45 Temperature Pulse Rate 109 H 108 H 108 H Pulse Rate [ Anterior Bilateral Throughout] Respiratory 22 24 22 Rate Respiratory Rate [Anterior Bilateral Throughout] Blood Pressure 144/69 135/69 142/68 O2 Sat by Pulse 94 94 94 Oximetry 11/29/17 11/29/17 11/29/17 04:00 04:13 04:15 Temperature 98.8 F Pulse Rate 107 H 108 H Pulse Rate [ Anterior Bilateral Throughout] Respiratory 22 24 Rate Respiratory Rate [Anterior Bilateral Throughout] Blood Pressure 142/69 140/68 O2 Sat by Pulse 93 94 Oximetry 11/29/17 11/29/17 11/29/17 04:31 04:45 05:00 Temperature Pulse Rate 109 H 107 H 107 H Pulse Rate [ Anterior Bilateral Throughout] Respiratory 22 18 18 Rate Respiratory Rate [Anterior Bilateral Throughout] Blood Pressure 140/68 130/68 130/66 O2 Sat by Pulse 94 95 96 Oximetry 11/29/17 11/29/17 11/29/17 05:15 05:30 05:45 Temperature Pulse Rate 105 H 103 H 102 H Pulse Rate [ Anterior Bilateral Throughout] Respiratory 18 18 18 Rate Respiratory Rate [Anterior Bilateral Throughout] Blood Pressure 120/64 120/64 113/64 O2 Sat by Pulse 96 95 95 Oximetry 11/29/17 11/29/17 11/29/17 06:00 06:15 06:30 Temperature Pulse Rate 101 H 101 H 100 H Pulse Rate [ Anterior Bilateral Throughout] Respiratory 18 18 18 Rate Respiratory Rate [Anterior Bilateral Throughout] Blood Pressure 111/62 112/63 118/62 O2 Sat by Pulse 95 95 96 Oximetry 11/29/17 11/29/17 11/29/17 06:45 07:00 07:15 Temperature Pulse Rate 101 H 109 H 113 H Pulse Rate [ Anterior Bilateral Throughout] Respiratory 18 20 24 Rate Respiratory Rate [Anterior Bilateral Throughout] Blood Pressure 125/68 125/68 139/73 O2 Sat by Pulse 93 94 95 Oximetry 11/29/17 11/29/17 11/29/17 07:30 07:45 08:00 Temperature 102 F H Pulse Rate 110 H 108 H 109 H Pulse Rate [ Anterior Bilateral Throughout] Respiratory 22 21 23 Rate Respiratory Rate [Anterior Bilateral Throughout] Blood Pressure 130/73 125/63 129/66 O2 Sat by Pulse 93 92 92 Oximetry 11/29/17 11/29/17 11/29/17 08:15 08:31 08:34 Temperature Pulse Rate 109 H 109 H Pulse Rate [ 109 H Anterior Bilateral Throughout] Respiratory 25 H Rate Respiratory 24 Rate [Anterior Bilateral Throughout] Blood Pressure 128/65 128/65 O2 Sat by Pulse 92 94 Oximetry - Lab 11/29/17 04:47 11/29/17 04:47 Most recent lab results Calcium 8.2 mg/dL (8.4-10.2) L 11/29/17 04:47 Magnesium 1.90 mg/dL (1.7-2.3) 11/28/17 03:17
[2017-11-29] MEDS: TYLENOL FEEDTUBE PRN (10:03)
[2017-11-29] MEDS: PEPCID IV SCH ×2 (10:03→21:32)
[2017-11-29] MEDS: BENADRYL IV SCH ×2 (10:04→21:32)
[2017-11-29] MEDS: KCL 20 MEQ in D5W 1,000 ML IV SCH ×2 (10:04→21:44)
[2017-11-29] MEDS: TAMIFLU PO SCH ×2 (10:26→21:32)
--- NOTE | 2017-11-29 13:36 | Progress Note ---
Assessment and Plan This unfortunate 56 year old female who was found pulseless, in asystole on and resuscitated, remains with no neurological function at this time. CT confirms severe anoxic damage. EEG reveals no cortical activity. She is off all sedation. Patient fits criteria for brain . Plan - as per ICU team. Subjective Date of service: 11/29/17 Principal diagnosis: Acute Hypoxemic Resp Failure; S/P Cardiac Arrest; Acute Encephalopathy Interval history: This 56 year old female was found down on 11/23/17, lives in a dwelling with another family. She was found by the homeowner who called EMS. When they arrived she was cold and without pulse. A cardiac rhythm was obtained with epinephrine injection and ACLS protocol followed. The pt. has a history of type II diabetes, COPD. She smokes 1 1/2 PPD for 30 years. She developed myoclonus after admission to [facility] which seems to be under control withKeppra and oxcarbazepine. CT from 11/26/17 reveals cerebral edema with some sparing of right frontal areas. There is ischemic change in bilateral basal ganglia, cerebellum. Consistent with anoxic encephalopathy. 11/29/17 - The patient continues on the ventilator, unresponsive, off sedation. Cardiac status has been stable. She has had no myoclonus or seizure activity over past 24 hours. Objective - Exam Narrative Exam: HEENT - no myoclonus or seizure activity. eyes closed. pupils 3 to 4 mm and not reactive. Heart - rate of 84. Regular. Nl S-1 and S-2. Lungs - end inspiratory and expiratory wheeze Abdomen - soft. min. bowel sounds.\ Extremities - no edema. no lesions. Neuro - unresponsive on ventilator. 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 face symmetric. Motor - no spontaneous movement. no movement to deep pain stimuli bilaterally. Sensory - as above. Reflexes - absent throughout. EEG performed yesterday reveals no brain activity, in keeping with what we are seeing on exam. - Vital Sign Vital Signs - 12hr 11/29/17 11/29/17 11/29/17 01:45 02:00 02:01 Temperature Pulse Rate 110 H Pulse Rate [ 107 H Anterior Bilateral Throughout] Respiratory 25 H Rate Respiratory 24 Rate [Anterior Bilateral Throughout] Blood Pressure 162/74 160/59 O2 Sat by Pulse 94 95 Oximetry 11/29/17 11/29/17 11/29/17 02:15 02:30 02:45 Temperature Pulse Rate 109 H 110 H 110 H Pulse Rate [ Anterior Bilateral Throughout] Respiratory 23 25 H 23 Rate Respiratory Rate [Anterior Bilateral Throughout] Blood Pressure 146/69 144/70 138/68 O2 Sat by Pulse 93 93 93 Oximetry 11/29/17 11/29/17 11/29/17 03:00 03:15 03:30 Temperature Pulse Rate 109 H 109 H 108 H Pulse Rate [ Anterior Bilateral Throughout] Respiratory 23 22 24 Rate Respiratory Rate [Anterior Bilateral Throughout] Blood Pressure 134/72 144/69 135/69 O2 Sat by Pulse 94 94 94 Oximetry 11/29/17 11/29/17 11/29/17 03:45 04:00 04:13 Temperature 98.8 F Pulse Rate 108 H 107 H Pulse Rate [ Anterior Bilateral Throughout] Respiratory 22 22 Rate Respiratory Rate [Anterior Bilateral Throughout] Blood Pressure 142/68 142/69 O2 Sat by Pulse 94 93 Oximetry 11/29/17 11/29/17 11/29/17 04:15 04:31 04:45 Temperature Pulse Rate 108 H 109 H 107 H Pulse Rate [ Anterior Bilateral Throughout] Respiratory 24 22 18 Rate Respiratory Rate [Anterior Bilateral Throughout] Blood Pressure 140/68 140/68 130/68 O2 Sat by Pulse 94 94 95 Oximetry 11/29/17 11/29/17 11/29/17 05:00 05:15 05:30 Temperature Pulse Rate 107 H 105 H 103 H Pulse Rate [ Anterior Bilateral Throughout] Respiratory 18 18 18 Rate Respiratory Rate [Anterior Bilateral Throughout] Blood Pressure 130/66 120/64 120/64 O2 Sat by Pulse 96 96 95 Oximetry 11/29/17 11/29/17 11/29/17 05:45 06:00 06:15 Temperature Pulse Rate 102 H 101 H 101 H Pulse Rate [ Anterior Bilateral Throughout] Respiratory 18 18 18 Rate Respiratory Rate [Anterior Bilateral Throughout] Blood Pressure 113/64 111/62 112/63 O2 Sat by Pulse 95 95 95 Oximetry 11/29/17 11/29/17 11/29/17 06:30 06:45 07:00 Temperature Pulse Rate 100 H 101 H 109 H Pulse Rate [ Anterior Bilateral Throughout] Respiratory 18 18 20 Rate Respiratory Rate [Anterior Bilateral Throughout] Blood Pressure 118/62 125/68 125/68 O2 Sat by Pulse 96 93 94 Oximetry 11/29/17 11/29/1711/29/18 07:15 07:30 07:45 Temperature Pulse Rate 113 H 110 H 108 H Pulse Rate [ Anterior Bilateral Throughout] Respiratory 24 22 21 Rate Respiratory Rate [Anterior Bilateral Throughout] Blood Pressure 139/73 130/73 125/63 O2 Sat by Pulse 95 93 92 Oximetry 11/29/17 11/29/17 11/29/17 08:00 08:15 08:30 Temperature 102 F H Pulse Rate 109 H 109 H 109 H Pulse Rate [ Anterior Bilateral Throughout] Respiratory 23 25 H 23 Rate Respiratory Rate [Anterior Bilateral Throughout] Blood Pressure 129/66 128/65 131/64 O2 Sat by Pulse 92 92 94 Oximetry 11/29/17 11/29/17 11/29/17 08:31 08:34 08:45 Temperature Pulse Rate 109 H 108 H Pulse Rate [ 109 H Anterior Bilateral Throughout] Respiratory 18 Rate Respiratory 24 Rate [Anterior Bilateral Throughout] Blood Pressure 128/65 117/64 O2 Sat by Pulse 94 96 Oximetry 11/29/17 11/29/17 11/29/17 09:00 09:15 09:30 Temperature Pulse Rate 108 H 108 H 108 H Pulse Rate [ Anterior Bilateral Throughout] Respiratory 18 18 19 Rate Respiratory Rate [Anterior Bilateral Throughout] Blood Pressure 116/64 129/66 129/66 O2 Sat by Pulse 97 98 97 Oximetry 11/29/17 11/29/17 11/29/17 09:45 10:00 10:15 Temperature Pulse Rate 107 H 108 H 107 H Pulse Rate [ Anterior Bilateral Throughout] Respiratory 18 18 18 Rate Respiratory Rate [Anterior Bilateral Throughout] Blood Pressure 122/66 132/67 130/66 O2 Sat by Pulse 97 98 98 Oximetry 11/29/17 11/29/17 11/29/17 10:30 10:45 11:00 Temperature Pulse Rate 107 H 105 H 104 H Pulse Rate [ Anterior Bilateral Throughout] Respiratory 18 18 18 Rate Respiratory Rate [Anterior Bilateral Throughout] Blood Pressure 121/62 122/61 128/67 O2 Sat by Pulse 98 97 98 Oximetry 11/29/17 11/29/17 11/29/17 11:15 11:30 11:45 Temperature Pulse Rate 101 H 100 H 98 H Pulse Rate [ Anterior Bilateral Throughout] Respiratory 18 18 18 Rate Respiratory Rate [Anterior Bilateral Throughout] Blood Pressure 128/66 125/67 126/70 O2 Sat by Pulse 96 95 96 Oximetry 11/29/17 12:00 Temperature 101.7 F H Pulse Rate 97 H Pulse Rate [ Anterior Bilateral Throughout] Respiratory 18 Rate Respiratory Rate [Anterior Bilateral Throughout] Blood Pressure 124/69 O2 Sat by Pulse 95 Oximetry - Laboratory Findings CBC and BMP: 11/29/17 04:47 11/29/17 04:47 Abnormal Lab Findings: Abnormal Labs 11/23/17 11/23/17 11/23/17 12:44 12:44 12:44 WBC 13.0 H RBC Hgb Hct 46.1 H MCV 112 H MCH 33 H MCHC 29 L RDW 18.5 H Plt Count Lymph % (Auto) Haines % (Auto) Lymph # Haines # Eos # Seg Neutrophils % Seg Neuts % (Manual) 71.0 H Monocytes % (Manual) 8.0 H Nucleated RBC % 6.0 H Seg Neutrophils # Seg Neutrophils # Man 9.2 H Monocytes # (Manual) 1.0 H PT 15.3 H INR 1.15 H D-Dimer POC ABG pH POC ABG pCO2 POC ABG pO2 Sodium Potassium 5.4 H Chloride 85.2 L Carbon Dioxide BUN 19 H Creatinine 1.3 H Glucose 175 H POC Glucose Lactic Acid Calcium AST 310 H ALT 262 H C-Reactive Protein Total Protein 5.7 L Albumin 2.9 L Salicylates 11/23/17 11/23/17 11/23/17 12:44 13:23 15:54 WBC RBC Hgb Hct MCV MCH MCHC RDW Plt Count Lymph % (Auto) Haines % (Auto) Lymph # Haines # Eos # Seg Neutrophils % Seg Neuts % (Manual) Monocytes % (Manual) Nucleated RBC % Seg Neutrophils # Seg Neutrophils # Man Monocytes # (Manual) PT INR D-Dimer POC ABG pH 7.035 L POC ABG pCO2 99.1 H POC ABG pO2 343 H Sodium Potassium Chloride Carbon Dioxide BUN Creatinine Glucose POC Glucose Lactic Acid 16.10 H* Calcium AST ALT C-Reactive Protein Total Protein Albumin Salicylates < 0.3 L 11/23/17 11/24/17 11/24/17 16:42 04:03 04:03 WBC 16.8 H RBC Hgb 15.7 H Hct 48.9 H MCV 101 H MCH MCHC RDW 16.5 H Plt Count Lymph % (Auto) 5.2 L Haines % (Auto) Lymph # 0.9 L Haines # 0.9 H Eos # Seg Neutrophils % 89.1 H Seg Neuts % (Manual) Monocytes % (Manual) Nucleated RBC % Seg Neutrophils # 14.9 H Seg Neutrophils # Man Monocytes # (Manual) PT INR D-Dimer POC ABG pH POC ABG pCO2 POC ABG pO2 55 L Sodium Potassium Chloride 96.0 L Carbon Dioxide 33 H D BUN 28 H Creatinine 1.5 H Glucose 108 H POC Glucose Lactic Acid Calcium 7.7 L AST 1091 H ALT 986 H C-Reactive Protein Total Protein 5.0 L Albumin 2.8 L Salicylates 11/24/17 11/24/17 11/24/17 05:55 13:29 13:29 WBC RBC Hgb Hct MCV MCH MCHC RDW Plt Count Lymph % (Auto) Haines % (Auto) Lymph # Haines # Eos # Seg Neutrophils % Seg Neuts % (Manual) Monocytes % (Manual) Nucleated RBC % Seg Neutrophils # Seg Neutrophils # Man Monocytes # (Manual) PT INR D-Dimer POC ABG pH 7.469 H POC ABG pCO2 52.3 H POC ABG pO2 69 L Sodium Potassium Chloride Carbon Dioxide BUN Creatinine Glucose POC Glucose Lactic Acid 3.20 H* Calcium AST ALT C-Reactive Protein 9.20 H Total Protein Albumin Salicylates 11/24/17 11/24/17 11/25/17 14:44 20:55 01:55 WBC RBC Hgb Hct MCV MCH MCHC RDW Plt Count Lymph % (Auto) Haines % (Auto) Lymph # Haines # Eos # Seg Neutrophils % Seg Neuts % (Manual) Monocytes % (Manual) Nucleated RBC % Seg Neutrophils # Seg Neutrophils # Man Monocytes # (Manual) PT INR D-Dimer 1977.37 H POC ABG pH 7.471 H POC ABG pCO2 56.2 H POC ABG pO2 Sodium Potassium Chloride Carbon Dioxide BUN Creatinine Glucose POC Glucose Lactic Acid 3.00 H* Calcium AST ALT C-Reactive Protein Total Protein Albumin Salicylates 11/25/17 11/25/17 11/25/17 03:02 03:02 03:02 WBC 16.0 H RBC Hgb Hct MCV 99 H MCH MCHC RDW 16.0 H Plt Count Lymph % (Auto) 11.6 L Haines % (Auto) Lymph # Haines # 1.0 H Eos # Seg Neutrophils % 81.8 H Seg Neuts % (Manual) Monocytes % (Manual) Nucleated RBC % Seg Neutrophils # 13.1 H Seg Neutrophils # Man Monocytes # (Manual) PT INR D-Dimer POC ABG pH POC ABG pCO2 POC ABG pO2 Sodium 148 H Potassium Chloride Carbon Dioxide 35 H BUN 30 H Creatinine 1.9 H Glucose 106 H POC Glucose Lactic Acid 2.90 H* Calcium 7.0 L AST ALT C-Reactive Protein Total Protein Albumin Salicylates 11/25/17 11/25/17 11/25/17 03:02 03:35 07:15 WBC RBC Hgb Hct MCV MCH MCHC RDW Plt Count Lymph % (Auto) Haines % (Auto) Lymph # Haines # Eos # Seg Neutrophils % Seg Neuts % (Manual) Monocytes % (Manual) Nucleated RBC % Seg Neutrophils # Seg Neutrophils # Man Monocytes # (Manual) PT INR D-Dimer POC ABG pH 7.494 H POC ABG pCO2 48.1 H POC ABG pO2 Sodium Potassium Chloride Carbon Dioxide BUN Creatinine Glucose POC Glucose Lactic Acid 2.30 H* Calcium AST 300 H ALT 561 H C-Reactive Protein Total Protein 4.5 L Albumin 2.4 L Salicylates 11/26/17 11/26/17 11/26/17 03:26 03:26 03:52 WBC 12.7 H RBC Hgb 14.9 H Hct 45.9 H MCV 98 H MCH MCHC RDW 16.3 H Plt Count 137 L Lymph % (Auto) 10.0 L Haines % (Auto) Lymph # Haines # Eos # Seg Neutrophils % 82.7 H Seg Neuts % (Manual) Monocytes % (Manual) Nucleated RBC % Seg Neutrophils # 10.5 H Seg Neutrophils # Man Monocytes # (Manual) PT INR D-Dimer POC ABG pH 7.475 H POC ABG pCO2 POC ABG pO2 71 L Sodium 150 H Potassium 3.3 L Chloride Carbon Dioxide BUN 22 H Creatinine 1.7 H Glucose 107 H POC Glucose Lactic Acid Calcium 7.5 L AST ALT C-Reactive Protein Total Protein Albumin Salicylates 11/26/17 11/26/17 11/26/17 11:49 17:53 23:56 WBC RBC Hgb Hct MCV MCH MCHC RDW Plt Count Lymph % (Auto) Haines % (Auto) Lymph # Haines # Eos # Seg Neutrophils % Seg Neuts % (Manual) Monocytes % (Manual) Nucleated RBC % Seg Neutrophils # Seg Neutrophils # Man Monocytes # (Manual) PT INR D-Dimer POC ABG pH POC ABG pCO2 POC ABG pO2 Sodium Potassium Chloride Carbon Dioxide BUN Creatinine Glucose POC Glucose 109 H 168 H 145 H Lactic Acid Calcium AST ALT C-Reactive Protein Total Protein Albumin Salicylates 11/27/17 11/27/17 11/27/17 04:22 04:22 04:53 WBC 11.7 H RBC Hgb 15.7 H Hct 49.8 H MCV 100 H MCH MCHC RDW 16.4 H Plt Count 105 L Lymph % (Auto) 7.6 L Haines % (Auto) 8.7 H Lymph # 0.9 L Haines # 1.0 H Eos # Seg Neutrophils % 83.2 H Seg Neuts % (Manual) Monocytes % (Manual) Nucleated RBC % Seg Neutrophils # 9.7 H Seg Neutrophils # Man Monocytes # (Manual) PT INR D-Dimer POC ABG pH POC ABG pCO2 53.1 H POC ABG pO2 70 L Sodium 155 H Potassium Chloride 113.1 H Carbon Dioxide BUN Creatinine 1.5 H Glucose 128 H POC Glucose Lactic Acid Calcium 7.4 L AST ALT C-Reactive Protein Total Protein Albumin Salicylates 11/27/17 11/27/17 11/27/17 05:34 11:27 16:18 WBC RBC Hgb Hct MCV MCH MCHC RDW Plt Count Lymph % (Auto) Haines % (Auto) Lymph # Haines # Eos # Seg Neutrophils % Seg Neuts % (Manual) Monocytes % (Manual) Nucleated RBC % Seg Neutrophils # Seg Neutrophils # Man Monocytes # (Manual) PT INR D-Dimer POC ABG pH POC ABG pCO2 POC ABG pO2 Sodium Potassium Chloride Carbon Dioxide BUN Creatinine Glucose POC Glucose 120 H 129 H Lactic Acid Calcium AST ALT C-Reactive Protein 13.70 H Total Protein Albumin Salicylates 11/27/17 11/27/17 11/28/17 17:19 23:56 03:17 WBC 14.5 H RBC Hgb 15.2 H Hct 48.3 H MCV 99 H MCH MCHC RDW 16.5 H Plt Count 108 L Lymph % (Auto) 9.7 L Haines % (Auto) Lymph # Haines # 1.0 H Eos # Seg Neutrophils % 81.0 H Seg Neuts % (Manual) Monocytes % (Manual) Nucleated RBC % Seg Neutrophils # 11.8 H Seg Neutrophils # Man Monocytes # (Manual) PT INR D-Dimer POC ABG pH POC ABG pCO2 POC ABG pO2 Sodium Potassium Chloride Carbon Dioxide BUN Creatinine Glucose POC Glucose 138 H 125 H Lactic Acid Calcium AST ALT C-Reactive Protein Total Protein Albumin Salicylates 11/28/17 11/28/17 11/28/17 03:17 05:34 06:46 WBC RBC Hgb Hct MCV MCH MCHC RDW Plt Count Lymph % (Auto) Haines % (Auto) Lymph # Haines # Eos # Seg Neutrophils % Seg Neuts % (Manual) Monocytes % (Manual) Nucleated RBC % Seg Neutrophils # Seg Neutrophils # Man Monocytes # (Manual) PT INR D-Dimer POC ABG pH 7.324 L POC ABG pCO2 63.4 H POC ABG pO2 65 L Sodium 150 H Potassium 3.4 L Chloride 107.9 H Carbon Dioxide 31 H BUN 19 H Creatinine 1.3 H Glucose 126 H POC Glucose 132 H Lactic Acid Calcium 7.7 L AST ALT C-Reactive Protein Total Protein Albumin Salicylates 11/28/17 11/28/17 11/29/17 12:17 17:20 00:12 WBC RBC Hgb Hct MCV MCH MCHC RDW Plt Count Lymph % (Auto) Haines % (Auto) Lymph # Haines # Eos # Seg Neutrophils % Seg Neuts % (Manual) Monocytes % (Manual) Nucleated RBC % Seg Neutrophils # Seg Neutrophils # Man Monocytes # (Manual) PT INR D-Dimer POC ABG pH POC ABG pCO2 POC ABG pO2 Sodium Potassium Chloride Carbon Dioxide BUN Creatinine Glucose POC Glucose 142 H 136 H 119 H Lactic Acid Calcium AST ALT C-Reactive Protein Total Protein Albumin Salicylates 11/29/17 11/29/17 11/29/17 04:47 04:47 05:29 WBC 14.1 H RBC 5.32 H Hgb 16.4 H Hct 51.2 H MCV MCH MCHC RDW 15.8 H Plt Count 77 L Lymph % (Auto) 7.6 L Haines % (Auto) Lymph # 1.1 L Haines # 0.9 H Eos # 0.5 H Seg Neutrophils % 81.5 H Seg Neuts % (Manual) Monocytes % (Manual) Nucleated RBC % Seg Neutrophils # 11.5 H Seg Neutrophils # Man Monocytes # (Manual) PT INR D-Dimer POC ABG pH POC ABG pCO2 POC ABG pO2 Sodium Potassium Chloride Carbon Dioxide BUN 18 H Creatinine Glucose 119 H POC Glucose 128 H Lactic Acid Calcium 8.2 L AST ALT C-Reactive Protein Total Protein Albumin Salicylates
--- NOTE | 2017-11-29 15:16 | Progress Note ---
Assessment and Plan Assessment: 1) Sepsis: still high fever. Etiology most likely pneumonia +/- central fever + /- influenza. CRP=13 2) Post-cardiac arrest at home 3) Respiratory failure 6) Presumed LLL pneumonia: ? Aspiration pneumonia. Resp cx + Candace likely a colonizer 7) Encephalopathy / seizures: presumed anoxic brain injury 8) TAMARA 9) COPD 10 ) Elevated LFTs ? from sepsis 11) Alcohol and tobacco abuse Plan: -repeat blood cx and respiratory cultures -check influenza antigen in nasopharinx - pending -continue zosyn day 3 -continue tamiflu day 3 of 5 -check viral hepatitis panel - pending Thank you for your consultation, will follow up with you. Kailey Torre MD Infectious Diseases Specialist [facility] [id number] [phone] [id number] [phone] Subjective Date of service: 11/29/17 Principal diagnosis: Acute Hypoxemic Resp Failure; S/P Cardiac Arrest; Acute Encephalopathy Interval history: Remians on the vent fio2 60% p 8, fever 102 Microbiology: Blood cultures: 11/24 ngtd Urine cultures: 11/24 ngtd Respiratory cultures: 11/23 Candace labicans Current Antimicrobials: Zosyn 11/23 Previous Antimicrobials: Vancomycin 11/23 Objective - Exam Narrative Exam: General appearance: sedated on the vent Eyes: anicteric sclerae, moist conjunctivae; no lid-lag; PERRLA HENT: Atraumatic; oropharynx +ETT Neck: Trachea midline; supple, no thyromegaly or lymphadenopathy Lungs: polo rhonchi CV: tachy Abdomen: Soft, non-tender; no masses or hepatosplenomegaly Extremities: mild peripheral edema,+marked polo arm edema Skin: Normal temperature, turgor and texture; no rash, ulcers or subcutaneous nodules Psych: sedated. Neuro: sedated Lines: No CVL / PICC - Constitutional Vitals: Vital Signs Temp Pulse Resp BP Pulse Ox 101.7 F H 84 18 129/70 96 11/29/17 12:00 11/29/17 14:48 11/29/17 14:48 11/29/17 14:46 11/29/17 14:46 Temperature -Last 24 Hours Temperature 101.7 F Temperature 102 F Temperature 98.8 F Temperature 99.2 F Temperature 97.7 F Temperature 97.8 F - Labs CBC & Chem 7: 02/13/18 04:47 11/29/17 04:47 Labs: Abnormal lab results 11/28/17 11/28/17 11/29/17 Range/Units 12:17 17:20 00:12 WBC (4.5-11.0) K/mm3 RBC (3.65-5.03) M/mm3 Hgb (10.1-14.3) gm/dl Hct (30.3-42.9) % RDW (13.2-15.2) % Plt Count (140-440) K/mm3 Lymph % (Auto) (13.4-35.0) % Lymph # (1.2-5.4) K/mm3 Fisher # (0.0-0.8) K/mm3 Eos # (0.0-0.4) K/mm3 Seg Neutrophils % (40.0-70.0) % Seg Neutrophils # (1.8-7.7) K/mm3 BUN (7-17) mg/dL Glucose (65-100) mg/dL POC Glucose 142 H 136 H 119 H (70-105) Calcium (8.4-10.2) mg/dL 11/29/17 11/29/17 11/29/17 Range/Units 04:47 04:47 05:29 WBC 14.1 H (4.5-11.0) K/mm3 RBC 5.32 H (3.65-5.03) M/mm3 Hgb 16.4 H (10.1-14.3) gm/dl Hct 51.2 H (30.3-42.9) % RDW 15.8 H (13.2-15.2) % Plt Count 77 L (140-440) K/mm3 Lymph % (Auto) 7.6 L (13.4-35.0) % Lymph # 1.1 L (1.2-5.4) K/mm3 Fisher # 0.9 H (0.0-0.8) K/mm3 Eos # 0.5 H (0.0-0.4) K/mm3 Seg Neutrophils % 81.5 H (40.0-70.0) % Seg Neutrophils # 11.5 H (1.8-7.7) K/mm3 BUN 18 H (7-17) mg/dL Glucose 119 H (65-100) mg/dL POC Glucose 128 H (70-105) Calcium 8.2 L (8.4-10.2) mg/dL
--- NOTE | 2017-11-29 17:44 | Progress Note ---
Assessment and Plan Acute hypoxemic respiratory failure, on mechanical ventilatory support. Status post cardiac arrest. Likely aspiration pneumonia. Acute encephalopathy with myoclonic jerks Acute exacerbation of chronic obstructive pulmonary disease. h/o Nicotine dependence/Tobacco use disorder. Obesity. Hypertension. History of alcohol abuse - continue full MVS - encephalopathy w/up ongoing - Neurology notes reviewed, for repeat CT head tomorrow, and EEG. - continue benadryl and double dose PPI for angioedema type tongue swelling - continue aspiration precautions / address VAP bundle daily - continue bronchodilators and pulmonary hygiene - continue to wean oxygen for sats > 90% - NGT to LIS for now - continue GI & VTE prophylaxis - continue empiric antibiotics and follow C&S - continue other care per attending/ other consultants ....remains critically ill on MVS and at high risk for further deterioration including ..35' CCT Subjective Date of service: 11/29/17 Principal diagnosis: Acute Hypoxemic Resp Failure; S/P Cardiac Arrest; Acute Encephalopathy Interval history: unresponsive following cardiopulmonary arrest, twitching of face History of present illness per medical records: This 56-year-old right handed (per son) white female was admitted yesterday having last been normal 6 AM yesterday morning according to her roommate (per ER notes here). Her son states she may have been down for several hours before found again. EMS found her to be cold, pulseless and in asystole area they were unable to intubate her but eventually got accompanied to be in. They have difficulty getting an IV established until just prior to arriving at the ER and at that time she got 1 dose of epinephrine though was still pulseless and unresponsive at the ER with emesis filling the [place]. Pupils were stated to be fixed and dilated with no withdrawal to pain. She was then intubated. She was given 1 dose of epinephrine and 1 of sodium bicarbonate during ACLS protocol. She had lactic acidosis of about 16, elevated liver enzymes and ABG showing respiratory acidosis. CT scan is read as normal but to me may be showing posterior effaced sulci. She was started on Keppra 750 mg IV every 12. She was noted to have some history of COPD and alcohol abuse. Her son has a bag of her medications from home including multiple inhalers (Combivent, Advair , Ventolin) as well as Mobic, Robitussin-DM generic syrup, and ipratropium dose apparently for nebulizer Patient was seen and examined. Vitals, labs, medications, chart, imaging was reviewed. No acute overnight events were reported. She remains orally intubated on mechanical ventilatory support. Discussed with RT and RN at the bedside Patient is breathing over mechanical ventilatory support. Neurology service has requested that apnea testing be performed. I did get an ABG and disconnected the patient from mechanical ventilatory support, she has spontaneous breathing at a rate of 44 breaths per min. Neurology has been paged and the patient has been placed back on MVS. Objective - Exam Narrative Exam: Constitutional: other (encephalopathic) Eyes: non-icteric ENT: oropharynx moist, other (ETT in place) Neck: supple, no lymphadenopathy, no JVD, other (No thyromegaly) Effort: mildly labored Ascultation: Bilateral: diminished breath sounds, rhonchi Percussion: Bilateral: not dull Cardiovascular: regular rate and rhythm, other (no rubs/murmurs) Gastrointestinal: hypoactive bowel sounds, soft, non-tender, non-distended, other (No HSM) Integumentary: rash Extremities: no cyanosis, pink and warm, pulses normal, no ischemia or petechiae , edema Neurologic: unable to assess Psychiatric: other (unable to assess re: AMS) Vital Signs - 12hr 11/29/17 11/29/17 11/29/17 05:45 06:00 06:15 Temperature Pulse Rate 102 H 101 H 101 H Pulse Rate [ Anterior Bilateral Throughout] Respiratory 18 18 18 Rate Respiratory Rate [Anterior Bilateral Throughout] Blood Pressure 113/64 111/62 112/63 O2 Sat by Pulse 95 95 95 Oximetry 11/29/17 11/29/17 11/29/17 06:30 06:45 07:00 Temperature Pulse Rate 100 H 101 H 109 H Pulse Rate [ Anterior Bilateral Throughout] Respiratory 18 18 20 Rate Respiratory Rate [Anterior Bilateral Throughout] Blood Pressure 118/62 125/68 125/68 O2 Sat by Pulse 96 93 94 Oximetry 11/29/17 11/29/17 11/29/17 07:15 07:30 07:45 Temperature Pulse Rate 113 H 110 H 108 H Pulse Rate [ Anterior Bilateral Throughout] Respiratory 24 22 21 Rate Respiratory Rate [Anterior Bilateral Throughout] Blood Pressure 139/73 130/73 125/63 O2 Sat by Pulse 95 93 92 Oximetry 11/29/17 11/29/17 11/29/17 08:00 08:15 08:30 Temperature 102 F H Pulse Rate 109 H 109 H 109 H Pulse Rate [ Anterior Bilateral Throughout] Respiratory 23 25 H 23 Rate Respiratory Rate [Anterior Bilateral Throughout] Blood Pressure 129/66 128/65 131/64 O2 Sat by Pulse 92 92 94 Oximetry 11/29/17 11/29/17 11/29/17 08:31 08:34 08:45 Temperature Pulse Rate 109 H 108 H Pulse Rate [ 109 H Anterior Bilateral Throughout] Respiratory 18 Rate Respiratory 24 Rate [Anterior Bilateral Throughout] Blood Pressure 128/65 117/64 O2 Sat by Pulse 94 96 Oximetry 11/29/17 11/29/17 11/29/17 08:50 09:00 09:15 Temperature Pulse Rate 108 H 108 H Pulse Rate [ 87 Anterior Bilateral Throughout] Respiratory 18 18 Rate Respiratory 18 Rate [Anterior Bilateral Throughout] Blood Pressure 116/64 129/66 O2 Sat by Pulse 97 98 Oximetry 11/29/17 11/29/17 11/29/17 09:30 09:45 10:00 Temperature Pulse Rate 108 H 107 H 108 H Pulse Rate [ Anterior Bilateral Throughout] Respiratory 19 18 18 Rate Respiratory Rate [Anterior Bilateral Throughout] Blood Pressure 129/66 122/66 132/67 O2 Sat by Pulse 97 97 98 Oximetry 11/29/17 11/29/17 11/29/17 10:15 10:30 10:45 Temperature Pulse Rate 107 H 107 H 105 H Pulse Rate [ Anterior Bilateral Throughout] Respiratory 18 18 18 Rate Respiratory Rate [Anterior Bilateral Throughout] Blood Pressure 130/66 121/62 122/61 O2 Sat by Pulse 98 98 97 Oximetry 11/29/17 11/29/17 11/29/17 11:00 11:15 11:30 Temperature Pulse Rate 104 H 101 H 100 H Pulse Rate [ Anterior Bilateral Throughout] Respiratory 18 18 18 Rate Respiratory Rate [Anterior Bilateral Throughout] Blood Pressure 128/67 128/66 125/67 O2 Sat by Pulse 98 96 95 Oximetry 11/29/17 11/29/17 11/29/17 11:45 12:00 12:15 Temperature 101.7 F H Pulse Rate 98 H 97 H 95 H Pulse Rate [ Anterior Bilateral Throughout] Respiratory 18 18 18 Rate Respiratory Rate [Anterior Bilateral Throughout] Blood Pressure 126/70 124/69 126/68 O2 Sat by Pulse 96 95 95 Oximetry 11/29/17 11/29/17 11/29/17 12:30 12:45 13:00 Temperature Pulse Rate 93 H 91 H 90 Pulse Rate [ Anterior Bilateral Throughout] Respiratory 18 18 18 Rate Respiratory Rate [Anterior Bilateral Throughout] Blood Pressure 126/68 101/61 107/66 O2 Sat by Pulse 95 95 95 Oximetry 11/29/17 11/29/17 11/29/17 13:15 13:30 13:45 Temperature Pulse Rate 89 88 87 Pulse Rate [ Anterior Bilateral Throughout] Respiratory 18 18 18 Rate Respiratory Rate [Anterior Bilateral Throughout] Blood Pressure 107/64 110/65 113/68 O2 Sat by Pulse 96 96 96 Oximetry 11/29/17 11/29/17 11/29/17 14:00 14:15 14:30 Temperature Pulse Rate 86 86 84 Pulse Rate [ Anterior Bilateral Throughout] Respiratory 18 18 18 Rate Respiratory Rate [Anterior Bilateral Throughout] Blood Pressure 120/69 118/69 129/70 O2 Sat by Pulse 96 96 96 Oximetry 11/29/17 11/29/17 11/29/17 14:45 14:46 14:48 Temperature Pulse Rate 84 84 Pulse Rate [ 84 Anterior Bilateral Throughout] Respiratory 18 Rate Respiratory 18 Rate [Anterior Bilateral Throughout] Blood Pressure 126/71 129/70 O2 Sat by Pulse 96 96 Oximetry 11/29/17 11/29/17 11/29/17 15:00 15:08 15:15 Temperature Pulse Rate 83 84 Pulse Rate [ 83 Anterior Bilateral Throughout] Respiratory 18 18 Rate Respiratory 18 Rate [Anterior Bilateral Throughout] Blood Pressure 129/70 137/74 O2 Sat by Pulse 96 95 Oximetry 11/29/17 11/29/17 11/29/17 15:30 15:46 16:00 Temperature 98.7 F Pulse Rate 83 85 94 H Pulse Rate [ Anterior Bilateral Throughout] Respiratory 18 18 20 Rate Respiratory Rate [Anterior Bilateral Throughout] Blood Pressure 137/74 155/71 155/71 O2 Sat by Pulse 94 94 97 Oximetry 11/29/17 11/29/17 11/29/17 16:16 16:30 16:46 Temperature Pulse Rate 96 H 97 H 96 H Pulse Rate [ Anterior Bilateral Throughout] Respiratory 24 24 23 Rate Respiratory Rate [Anterior Bilateral Throughout] Blood Pressure 194/80 184/79 174/79 O2 Sat by Pulse 95 95 98 Oximetry 11/29/17 11/29/17 17:00 17:16 Temperature Pulse Rate 95 H 96 H Pulse Rate [ Anterior Bilateral Throughout] Respiratory 23 24 Rate Respiratory Rate [Anterior Bilateral Throughout] Blood Pressure 166/71 174/79 O2 Sat by Pulse 100 100 Oximetry Constitutional: other (encephalopathic) Eyes: non-icteric ENT: oropharynx moist, other (ETT in place) Neck: supple, no lymphadenopathy, no JVD, other (No thyromegaly) Effort: mildly labored Ascultation: Bilateral: diminished breath sounds, rhonchi Percussion: Bilateral: not dull Cardiovascular: regular rate and rhythm, other (no rubs/murmurs) Gastrointestinal: hypoactive bowel sounds, soft, non-tender, non-distended, other (No HSM) Integumentary: rash Extremities: no cyanosis, pink and warm, pulses normal, no ischemia or petechiae , edema Neurologic: unable to assess Psychiatric: other (unable to assess re: AMS) CBC and BMP: 11/30/17 03:48 11/30/17 03:48 ABG, PT/INR, D-dimer: ABG POC ABG pH 7.324 (7.35-7.45) L 11/28/17 06:46 POC ABG pCO2 63.4 (35-45) H 11/28/17 06:46 POC ABG pO2 65 (80-105) L 11/28/17 06:46 POC ABG HCO3 33.0 11/28/17 06:46 POC ABG Total CO2 35 11/28/17 06:46 POC ABG O2 Sat 90 11/28/17 06:46 PT/INR, D-dimer PT 15.3 Sec. (12.2-14.9) H 11/23/17 12:44 INR 1.15 (0.87-1.13) H 11/23/17 12:44 D-Dimer 1977.37 ng/mlDDU (0-234) H 11/24/17 14:44 Abnormal lab findings: Abnormal Labs 11/23/17 11/23/17 11/23/17 12:44 12:44 12:44 WBC 13.0 H RBC Hgb Hct 46.1 H MCV 112 H MCH 33 H MCHC 29 L RDW 18.5 H Plt Count Lymph % (Auto) [place] % (Auto) Lymph # [place] # Eos # Seg Neutrophils % Seg Neuts % (Manual) 71.0 H Monocytes % (Manual) 8.0 H Nucleated RBC % 6.0 H Seg Neutrophils # Seg Neutrophils # Man 9.2 H Monocytes # (Manual) 1.0 H PT 15.3 H INR 1.15 H D-Dimer POC ABG pH POC ABG pCO2 POC ABG pO2 Sodium Potassium 5.4 H Chloride 85.2 L Carbon Dioxide BUN 19 H Creatinine 1.3 H Glucose 175 H POC Glucose Lactic Acid Calcium AST 310 H ALT 262 H C-Reactive Protein Total Protein 5.7 L Albumin 2.9 L Salicylates 11/23/17 11/23/17 11/23/17 12:44 13:23 15:54 WBC RBC Hgb Hct MCV MCH MCHC RDW Plt Count Lymph % (Auto) [place] % (Auto) Lymph # [place] # Eos # Seg Neutrophils % Seg Neuts % (Manual) Monocytes % (Manual) Nucleated RBC % Seg Neutrophils # Seg Neutrophils # Man Monocytes # (Manual) PT INR D-Dimer POC ABG pH 7.035 L POC ABG pCO2 99.1 H POC ABG pO2 343 H Sodium Potassium Chloride Carbon Dioxide BUN Creatinine Glucose POC Glucose Lactic Acid 16.10 H* Calcium AST ALT C-Reactive Protein Total Protein Albumin Salicylates < 0.3 L 11/23/17 11/24/17 11/24/17 16:42 04:03 04:03 WBC 16.8 H RBC Hgb 15.7 H Hct 48.9 H MCV 101 H MCH MCHC RDW 16.5 H Plt Count Lymph % (Auto) 5.2 L [place] % (Auto) Lymph # 0.9 L [place] # 0.9 H Eos # Seg Neutrophils % 89.1 H Seg Neuts % (Manual) Monocytes % (Manual) Nucleated RBC % Seg Neutrophils # 14.9 H Seg Neutrophils # Man Monocytes # (Manual) PT INR D-Dimer POC ABG pH POC ABG pCO2 POC ABG pO2 55 L Sodium Potassium Chloride 96.0 L Carbon Dioxide 33 H D BUN 28 H Creatinine 1.5 H Glucose 108 H POC Glucose Lactic Acid Calcium 7.7 L AST 1091 H ALT 986 H C-Reactive Protein Total Protein 5.0 L Albumin 2.8 L Salicylates 11/24/17 11/24/17 11/24/17 05:55 13:29 13:29 WBC RBC Hgb Hct MCV MCH MCHC RDW Plt Count Lymph % (Auto) [place] % (Auto) Lymph # [place] # Eos # Seg Neutrophils % Seg Neuts % (Manual) Monocytes % (Manual) Nucleated RBC % Seg Neutrophils # Seg Neutrophils # Man Monocytes # (Manual) PT INR D-Dimer POC ABG pH 7.469 H POC ABG pCO2 52.3 H POC ABG pO2 69 L Sodium Potassium Chloride Carbon Dioxide BUN Creatinine Glucose POC Glucose Lactic Acid 3.20 H* Calcium AST ALT C-Reactive Protein 9.20 H Total Protein Albumin Salicylates 11/24/17 11/24/17 11/25/17 14:44 20:55 01:55 WBC RBC Hgb Hct MCV MCH MCHC RDW Plt Count Lymph % (Auto) [place] % (Auto) Lymph # [place] # Eos # Seg Neutrophils % Seg Neuts % (Manual) Monocytes % (Manual) Nucleated RBC % Seg Neutrophils # Seg Neutrophils # Man Monocytes # (Manual) PT INR D-Dimer 1977.37 H POC ABG pH 7.471 H POC ABG pCO2 56.2 H POC ABG pO2 Sodium Potassium Chloride Carbon Dioxide BUN Creatinine Glucose POC Glucose Lactic Acid 3.00 H* Calcium AST ALT C-Reactive Protein Total Protein Albumin Salicylates 11/25/17 11/25/17 11/25/17 03:02 03:02 03:02 WBC 16.0 H RBC Hgb Hct MCV 99 H MCH MCHC RDW 16.0 H Plt Count Lymph % (Auto) 11.6 L [place] % (Auto) Lymph # [place] # 1.0 H Eos # Seg Neutrophils % 81.8 H Seg Neuts % (Manual) Monocytes % (Manual) Nucleated RBC % Seg Neutrophils # 13.1 H Seg Neutrophils # Man Monocytes # (Manual) PT INR D-Dimer POC ABG pH POC ABG pCO2 POC ABG pO2 Sodium 148 H Potassium Chloride Carbon Dioxide 35 H BUN 30 H Creatinine 1.9 H Glucose 106 H POC Glucose Lactic Acid 2.90 H* Calcium 7.0 L AST ALT C-Reactive Protein Total Protein Albumin Salicylates 11/25/17 11/25/17 11/25/17 03:02 03:35 07:15 WBC RBC Hgb Hct MCV MCH MCHC RDW Plt Count Lymph % (Auto) [place] % (Auto) Lymph # [place] # Eos # Seg Neutrophils % Seg Neuts % (Manual) Monocytes % (Manual) Nucleated RBC % Seg Neutrophils # Seg Neutrophils # Man Monocytes # (Manual) PT INR D-Dimer POC ABG pH 7.494 H POC ABG pCO2 48.1 H POC ABG pO2 Sodium Potassium Chloride Carbon Dioxide BUN Creatinine Glucose POC Glucose Lactic Acid 2.30 H* Calcium AST 300 H ALT 561 H C-Reactive Protein Total Protein 4.5 L Albumin 2.4 L Salicylates 11/26/17 11/26/17 11/26/17 03:26 03:26 03:52 WBC 12.7 H RBC Hgb 14.9 H Hct 45.9 H MCV 98 H MCH MCHC RDW 16.3 H Plt Count 137 L Lymph % (Auto) 10.0 L [place] % (Auto) Lymph # [place] # Eos # Seg Neutrophils % 82.7 H Seg Neuts % (Manual) Monocytes % (Manual) Nucleated RBC % Seg Neutrophils # 10.5 H Seg Neutrophils # Man Monocytes # (Manual) PT INR D-Dimer POC ABG pH 7.475 H POC ABG pCO2 POC ABG pO2 71 L Sodium 150 H Potassium 3.3 L Chloride Carbon Dioxide BUN 22 H Creatinine 1.7 H Glucose 107 H POC Glucose Lactic Acid Calcium 7.5 L AST ALT C-Reactive Protein Total Protein Albumin Salicylates 11/26/17 11/26/17 11/26/17 11:49 17:53 23:56 WBC RBC Hgb Hct MCV MCH MCHC RDW Plt Count Lymph % (Auto) [place] % (Auto) Lymph # [place] # Eos # Seg Neutrophils % Seg Neuts % (Manual) Monocytes % (Manual) Nucleated RBC % Seg Neutrophils # Seg Neutrophils # Man Monocytes # (Manual) PT INR D-Dimer POC ABG pH POC ABG pCO2 POC ABG pO2 Sodium Potassium Chloride Carbon Dioxide BUN Creatinine Glucose POC Glucose 109 H 168 H 145 H Lactic Acid Calcium AST ALT C-Reactive Protein Total Protein Albumin Salicylates 11/27/17 11/27/17 11/27/17 04:22 04:22 04:53 WBC 11.7 H RBC Hgb 15.7 H Hct 49.8 H MCV 100 H MCH MCHC RDW 16.4 H Plt Count 105 L Lymph % (Auto) 7.6 L [place] % (Auto) 8.7 H Lymph # 0.9 L [place] # 1.0 H Eos # Seg Neutrophils % 83.2 H Seg Neuts % (Manual) Monocytes % (Manual) Nucleated RBC % Seg Neutrophils # 9.7 H Seg Neutrophils # Man Monocytes # (Manual) PT INR D-Dimer POC ABG pH POC ABG pCO2 53.1 H POC ABG pO2 70 L Sodium 155 H Potassium Chloride 113.1 H Carbon Dioxide BUN Creatinine 1.5 H Glucose 128 H POC Glucose Lactic Acid Calcium 7.4 L AST ALT C-Reactive Protein Total Protein Albumin Salicylates 11/27/17 11/27/17 11/27/17 05:34 11:27 16:18 WBC RBC Hgb Hct MCV MCH MCHC RDW Plt Count Lymph % (Auto) [place] % (Auto) Lymph # [place] # Eos # Seg Neutrophils % Seg Neuts % (Manual) Monocytes % (Manual) Nucleated RBC % Seg Neutrophils # Seg Neutrophils # Man Monocytes # (Manual) PT INR D-Dimer POC ABG pH POC ABG pCO2 POC ABG pO2 Sodium Potassium Chloride Carbon Dioxide BUN Creatinine Glucose POC Glucose 120 H 129 H Lactic Acid Calcium AST ALT C-Reactive Protein 13.70 H Total Protein Albumin Salicylates 11/27/17 11/27/17 11/28/17 17:19 23:56 03:17 WBC 14.5 H RBC Hgb 15.2 H Hct 48.3 H MCV 99 H MCH MCHC RDW 16.5 H Plt Count 108 L Lymph % (Auto) 9.7 L [place] % (Auto) Lymph # [place] # 1.0 H Eos # Seg Neutrophils % 81.0 H Seg Neuts % (Manual) Monocytes % (Manual) Nucleated RBC % Seg Neutrophils # 11.8 H Seg Neutrophils # Man Monocytes # (Manual) PT INR D-Dimer POC ABG pH POC ABG pCO2 POC ABG pO2 Sodium Potassium Chloride Carbon Dioxide BUN Creatinine Glucose POC Glucose 138 H 125 H Lactic Acid Calcium AST ALT C-Reactive Protein Total Protein Albumin Salicylates 11/28/17 11/28/17 11/28/17 03:17 05:34 06:46 WBC RBC Hgb Hct MCV MCH MCHC RDW Plt Count Lymph % (Auto) [place] % (Auto) Lymph # [place] # Eos # Seg Neutrophils % Seg Neuts % (Manual) Monocytes % (Manual) Nucleated RBC % Seg Neutrophils # Seg Neutrophils # Man Monocytes # (Manual) PT INR D-Dimer POC ABG pH 7.324 L POC ABG pCO2 63.4 H POC ABG pO2 65 L Sodium 150 H Potassium 3.4 L Chloride 107.9 H Carbon Dioxide 31 H BUN 19 H Creatinine 1.3 H Glucose 126 H POC Glucose 132 H Lactic Acid Calcium 7.7 L AST ALT C-Reactive Protein Total Protein Albumin Salicylates 11/28/17 11/28/17 11/29/17 12:17 17:20 00:12 WBC RBC Hgb Hct MCV MCH MCHC RDW Plt Count Lymph % (Auto) [place] % (Auto) Lymph # [place] # Eos # Seg Neutrophils % Seg Neuts % (Manual) Monocytes % (Manual) Nucleated RBC % Seg Neutrophils # Seg Neutrophils # Man Monocytes # (Manual) PT INR D-Dimer POC ABG pH POC ABG pCO2 POC ABG pO2 Sodium Potassium Chloride Carbon Dioxide BUN Creatinine Glucose POC Glucose 142 H 136 H 119 H Lactic Acid Calcium AST ALT C-Reactive Protein Total Protein Albumin Salicylates 11/29/17 11/29/17 11/29/17 04:47 04:47 05:29 WBC 14.1 H RBC 5.32 H Hgb 16.4 H Hct 51.2 H MCV MCH MCHC RDW 15.8 H Plt Count 77 L Lymph % (Auto) 7.6 L [place] % (Auto) Lymph # 1.1 L [place] # 0.9 H Eos # 0.5 H Seg Neutrophils % 81.5 H Seg Neuts % (Manual) Monocytes % (Manual) Nucleated RBC % Seg Neutrophils # 11.5 H Seg Neutrophils # Man Monocytes # (Manual) PT INR D-Dimer POC ABG pH POC ABG pCO2 POC ABG pO2 Sodium Potassium Chloride Carbon Dioxide BUN 18 H Creatinine Glucose 119 H POC Glucose 128 H Lactic Acid Calcium 8.2 L AST ALT C-Reactive Protein Total Protein Albumin Salicylates Allied health notes reviewed: nursing
--- NOTE | 2017-11-29 18:34 | Progress Note ---
Assessment and Plan Assessment and plan: S/p cardiopulmonary arrest. Etiology likely secondary to respiratory arrest. - Anoxic encephalopathy; EEG showed no cortical activity - Urgent consult appreciated Sepsis. Hypernatremia Possible complex partial seizures with secondary generalization. Acute hypercapneic resp failure. Have discussed with her younger brother, about the prognosis and patient is full code. History Interval history: Patient was seen and evaluated this morning, patient is intubated and on mechanical ventilation, patient is comatose despite off sedation. Hospitalist Physical - Physical exam Narrative exam: Intubated and mechanical ventilation.. The patient appeared well nourished and normally developed. Vital signs as documented. Head exam is unremarkable. No scleral icterus . Neck is without jugular venous distension, thyromegaly, or carotid bruits. Lungs are clear to auscultation. Cardiac exam reveals regular rate and Rhythm. First and second heart sounds normal. No murmurs, rubs or gallops. Abdominal exam reveals normal bowel sounds, no masses, no organomegaly and no aortic enlargement. Extremities are nonedematous and both femoral and pedal pulses are normal. VENEER TAPER: Deeply comatose. - Constitutional Vitals: Temp Pulse Resp BP Pulse Ox 98.7 F 98 H 24 161/74 100 11/29/17 16:00 11/29/17 17:40 11/29/17 17:16 11/29/17 17:40 11/29/17 17:40 General appearance: Present: no acute distress, other (on mech vent, orally intubated) Results - Labs CBC & Chem 7: 11/30/17 03:48 11/30/17 03:48 Labs: Laboratory Last Values WBC 14.1 K/mm3 (4.5-11.0) H 11/29/17 04:47 RBC 5.32 M/mm3 (3.65-5.03) H 11/29/17 04:47 Hgb 16.4 gm/dl (10.1-14.3) H 11/29/17 04:47 Hct 51.2 % (30.3-42.9) H 11/29/17 04:47 MCV 96 fl (79-97) 11/29/17 04:47 MCH 31 pg (28-32) 11/29/17 04:47 MCHC 32 % (30-34) 11/29/17 04:47 RDW 15.8 % (13.2-15.2) H 11/29/17 04:47 Plt Count 77 K/mm3 (140-440) L 11/29/17 04:47 Lymph % (Auto) 7.6 % (13.4-35.0) L 11/29/17 04:47 [place] % (Auto) 6.7 % (0.0-7.3) 11/29/17 04:47 Eos % (Auto) 3.6 % (0.0-4.3) 11/29/17 04:47 Baso % (Auto) 0.6 % (0.0-1.8) 11/29/17 04:47 Lymph # 1.1 K/mm3 (1.2-5.4) L 11/29/17 04:47 [place] # 0.9 K/mm3 (0.0-0.8) H 11/29/17 04:47 Eos # 0.5 K/mm3 (0.0-0.4) H 11/29/17 04:47 Baso # 0.1 K/mm3 (0.0-0.1) 11/29/17 04:47 Add Manual Diff Complete 11/23/17 12:44 Total Counted 100 11/23/17 12:44 Seg Neutrophils % 81.5 % (40.0-70.0) H 11/29/17 04:47 Seg Neuts % (Manual) 71.0 % (40.0-70.0) H 11/23/17 12:44 Band Neutrophils % 3.0 % 11/23/17 12:44 Lymphocytes % (Manual) 18.0 % (13.4-35.0) 11/23/17 12:44 Reactive Lymphs % (Man) 0 % 11/23/17 12:44 Monocytes % (Manual) 8.0 % (0.0-7.3) H 11/23/17 12:44 Eosinophils % (Manual) 0 % (0.0-4.3) 11/23/17 12:44 Basophils % (Manual) 0 % (0.0-1.8) 11/23/17 12:44 Metamyelocytes % 0 % 11/23/17 12:44 Myelocytes % 0 % 11/23/17 12:44 Promyelocytes % 0 % 11/23/17 12:44 Blast Cells % 0 % 11/23/17 12:44 Nucleated RBC % 6.0 % (0.0-0.9) H 11/23/17 12:44 Seg Neutrophils # 11.5 K/mm3 (1.8-7.7) H 11/29/17 04:47 Seg Neutrophils # Man 9.2 K/mm3 (1.8-7.7) H 11/23/17 12:44 Band Neutrophils # 0.4 K/mm3 11/23/17 12:44 Lymphocytes # (Manual) 2.3 K/mm3 (1.2-5.4) 11/23/17 12:44 Abs React Lymphs (Man) 0.0 K/mm3 11/23/17 12:44 Monocytes # (Manual) 1.0 K/mm3 (0.0-0.8) H 11/23/17 12:44 Eosinophils # (Manual) 0.0 K/mm3 (0.0-0.4) 11/23/17 12:44 Basophils # (Manual) 0.0 K/mm3 (0.0-0.1) 11/23/17 12:44 Metamyelocytes # 0.0 K/mm3 11/23/17 12:44 Myelocytes # 0.0 K/mm3 11/23/17 12:44 Promyelocytes # 0.0 K/mm3 11/23/17 12:44 Blast Cells # 0.0 K/mm3 11/23/17 12:44 WBC Morphology Not Reportable 11/23/17 12:44 Hypersegmented Neuts Not Reportable 11/23/17 12:44 Hyposegmented Neuts Not Reportable 11/23/17 12:44 Hypogranular Neuts Not Reportable 11/23/17 12:44 Smudge Cells Not Reportable 11/23/17 12:44 Toxic Granulation Not Reportable 11/23/17 12:44 Toxic Vacuolation Not Reportable 11/23/17 12:44 Dohle Bodies Not Reportable 11/23/17 12:44 Pelger-Huet Anomaly Not Reportable 11/23/17 12:44 Erika Rods Not Reportable 11/23/17 12:44 Platelet Estimate Consistent w auto 11/23/17 12:44 Clumped Platelets Not Reportable 11/23/17 12:44 Plt Clumps, EDTA Not Reportable 11/23/17 12:44 Large Platelets Not Reportable 11/23/17 12:44 Giant Platelets Not Reportable 11/23/17 12:44 Platelet Satelliting Not Reportable 11/23/17 12:44 Plt Morphology Comment Not Reportable 11/23/17 12:44 RBC Morphology Not Reportable 11/23/17 12:44 Dimorphic RBCs Not Reportable 11/23/17 12:44 Polychromasia Rare 11/23/17 12:44 Hypochromasia Not Reportable 11/23/17 12:44 Poikilocytosis Not Reportable 11/23/17 12:44 Anisocytosis 1+ 11/23/17 12:44 Microcytosis Not Reportable 11/23/17 12:44 Macrocytosis 1+ 11/23/17 12:44 Spherocytes Not Reportable 11/23/17 12:44 Pappenheimer Bodies Not Reportable 11/23/17 12:44 Sickle Cells Not Reportable 11/23/17 12:44 Target Cells Not Reportable 11/23/17 12:44 Tear Drop Cells Not Reportable 11/23/17 12:44 Ovalocytes Not Reportable 11/23/17 12:44 Helmet Cells Not Reportable 11/23/17 12:44 [place] Bodies Not Reportable 11/23/17 12:44 [place] Rings Not Reportable 11/23/17 12:44 [place] Cells Not Reportable 11/23/17 12:44 Bite Cells Not Reportable 11/23/17 12:44 Crenated Cell Not Reportable 11/23/17 12:44 Elliptocytes Not Reportable 11/23/17 12:44 Acanthocytes (Spur) Not Reportable 11/23/17 12:44 Rouleaux Not Reportable 11/23/17 12:44 Hemoglobin C Crystals Not Reportable 11/23/17 12:44 Schistocytes Not Reportable 11/23/17 12:44 Malaria parasites Not Reportable 11/23/17 12:44 Brett Bodies Not Reportable 11/23/17 12:44 Hem Pathologist Commnt No 11/23/17 12:44 PT 15.3 Sec. (12.2-14.9) H 11/23/17 12:44 INR 1.15 (0.87-1.13) H 11/23/17 12:44 APTT 33.9 Sec. (24.2-36.6) 11/23/17 12:44 D-Dimer 1977.37 ng/mlDDU (0-234) H 11/24/17 14:44 POC ABG pH 7.398 (7.35-7.45) 11/29/17 17:39 POC ABG pCO2 51.6 (35-45) H 11/29/17 17:39 POC ABG pO2 345 (80-105) H 11/29/17 17:39 POC ABG HCO3 31.8 11/29/17 17:39 POC ABG Total CO2 33 11/29/17 17:39 POC ABG O2 Sat 100 11/29/17 17:39 POC ABG Base Excess 7 11/29/17 17:39 FiO2 100 % 11/29/17 17:39 Sodium 145 mmol/L (137-145) 11/29/17 04:47 Potassium 4.2 mmol/L (3.6-5.0) D 11/29/17 04:47 Chloride 105.9 mmol/L (98-107) 11/29/17 04:47 Carbon Dioxide 26 mmol/L (22-30) 11/29/17 04:47 Anion Gap 17 mmol/L 11/29/17 04:47 BUN 18 mg/dL (7-17) H 11/29/17 04:47 Creatinine 1.2 mg/dL (0.7-1.2) 11/29/17 04:47 Estimated GFR 46 ml/min 11/29/17 04:47 BUN/Creatinine Ratio 15 % 11/29/17 04:47 Glucose 119 mg/dL (65-100) H 11/29/17 04:47 POC Glucose 128 (70-105) H 11/29/17 05:29 Lactic Acid 2.00 mmol/L (0.7-2.0) 11/25/17 10:25 Calcium 8.2 mg/dL (8.4-10.2) L 11/29/17 04:47 Magnesium 1.90 mg/dL (1.7-2.3) 11/28/17 03:17 Total Bilirubin 0.60 mg/dL (0.1-1.2) 11/25/17 03:02 Direct Bilirubin 0.2 mg/dL (0-0.2) 11/25/17 03:02 Indirect Bilirubin 0.4 mg/dL 11/25/17 03:02 AST 300 units/L (5-40) H 11/25/17 03:02 ALT 561 units/L (7-56) H 11/25/17 03:02 Alkaline Phosphatase 54 units/L (35-129) 11/25/17 03:02 Troponin T < 0.010 ng/mL (0.00-0.029) 11/23/17 12:44 C-Reactive Protein 13.70 mg/dL (0.00-1.30) H 11/27/17 16:18 Total Protein 4.5 g/dL (6.3-8.2) L 11/25/17 03:02 Albumin 2.4 g/dL (3.9-5) L 11/25/17 03:02 Albumin/Globulin Ratio 1.1 % 11/25/17 03:02 Urine Color Yellow (Yellow) 11/23/17 13:39 Urine Turbidity Clear (Clear) 11/23/17 13:39 Urine pH 5.0 (5.0-7.0) 11/23/17 13:39 Ur Specific [place] 1.020 (1.003-1.030) 11/23/17 13:39 Urine Protein 30 mg/dl mg/dL (Negative) 11/23/17 13:39 Urine Glucose (UA) Neg mg/dL (Negative) 11/23/17 13:39 Urine Ketones Neg mg/dL (Negative) 11/23/17 13:39 Urine Blood Neg (Negative) 11/23/17 13:39 Urine Nitrite Neg (Negative) 11/23/17 13:39 Urine Bilirubin Neg (Negative) 11/23/17 13:39 Urine Urobilinogen 2.0 mg/dL (<2.0) 11/23/17 13:39 Ur Leukocyte Esterase Neg (Negative) 11/23/17 13:39 Urine WBC (Auto) 5.0 /HPF (0.0-6.0) 11/23/17 13:39 Urine RBC (Auto) 1.0 /HPF (0.0-6.0) 11/23/17 13:39 U Epithel Cells (Auto) 1.0 /HPF (0-13.0) 11/23/17 13:39 Urine Bacteria (Auto) 1+ /HPF (Negative) 11/23/17 13:39 Hyaline Casts 11 /LPF 11/23/17 13:39 Urine Mucus 2+ /HPF 11/23/17 13:39 Salicylates < 0.3 mg/dL (2.8-20.0) L 11/23/17 15:54 Urine Opiates Screen Presumptive positive 11/23/17 13:39 Urine Methadone Screen Presumptive negative 11/23/17 13:39 Acetaminophen < 15.0 ug/mL (10.0-30.0) 11/23/17 15:54 Ur Barbiturates Screen Presumptive negative 11/23/17 13:39 Ur Phencyclidine Scrn Presumptive negative 11/23/17 13:39 Ur Amphetamines Screen Presumptive negative 11/23/17 13:39 U Benzodiazepines Scrn Presumptive positive 11/23/17 13:39 Urine Cocaine Screen Presumptive negative 11/23/17 13:39 U Marijuana (THC) Screen Presumptive negative 11/23/17 13:39 Drugs of Abuse Note Disclamer 11/23/17 13:39
[2017-11-30] MEDS: ZOSYN/NS 4.5GM/100ML 4.5 GM/100 ML VIAL IV SCH ×3 (01:15→17:40)
[2017-11-30] MEDS: DUONEB *Not for PRN Use IH SCH ×4 (01:54→19:28)
[2017-11-30 04:53] LABS: Basophils # (Auto) 0.1 K/mm3 (0.0-0.1); Eosinophils # (Auto) 0.5 K/mm3 (0.0-0.4); Hematocrit 47.2 % (30.3-42.9); Hemoglobin 15.4 gm/dl (10.1-14.3); Lymphocytes # (Auto) 1.4 K/mm3 (1.2-5.4); Lymphocytes % (Auto) 10.5 % (13.4-35.0); Mean Corpuscular HGB Conc 33 % (30-34); Mean Corpuscular Hemoglobin 31 pg (28-32); Mean Corpuscular Volume 96 fl (79-97); Monocytes % (Auto) 7.7 % (0.0-7.3); Red Blood Count 4.91 M/mm3 (3.65-5.03); Red Cell Distribution Width 16.3 % (13.2-15.2)
[2017-11-30 04:57] LABS: Platelet Count 166 K/mm3 (140-440)
[2017-11-30 05:10] LABS: Calcium 7.6 mg/dL (8.4-10.2)
[2017-11-30] MEDS: HEPARIN SUB-Q SCH ×3 (05:41→22:05)
[2017-11-30] MEDS: D5W IV SCH ×3 (05:43→17:40)
[2017-11-30] MEDS: REGLAN PO SCH ×3 (05:43→22:06)
[2017-11-30] MEDS: KEPPRA IV SCH ×3 (05:43→17:40)
--- NOTE | 2017-11-30 05:43 | XRay Report ---
FINAL REPORT EXAM: XR CHEST 1V AP HISTORY: follow up respiratory failure TECHNIQUE: AP portable view(s) of the chest obtained. PRIORS: 11/29/2017 FINDINGS: Endotracheal tube terminates approximately 5 cm from the barbara. Enteric tube courses below the diaphragm and off of the inferior field of view. The distal side port of the enteric tube is just below the expected location of the gastroesophageal junction. No mediastinal shift. Cardiac silhouette is not enlarged. No pneumothorax or effusion. Ill-defined bibasilar opacities. No acute skeletal findings. IMPRESSION: Satisfactory appearance of patient's support apparatus without pneumothorax.
--- NOTE | 2017-11-30 09:24 | Progress Note ---
Assessment and Plan Impression: * Hypernatremia * TAMARA * S/P cardiac arress * Anoxia * Acute resp failure * hypokalemia Plan: * electrolytes are better * sodium is better * follow up mag levels * ruled out central diabetes insipidus * daily lytes * ua noted * neuro note reviewed, poor prognosis, she has brain Subjective Date of service: 11/30/17 Principal diagnosis: Acute Hypoxemic Resp Failure; S/P Cardiac Arrest; Acute Encephalopathy Interval history: resting in bed today, no acute events Objective - Exam Narrative Exam: General Appearance: well developed well nourished (per BMI) late 50s white female, intubated HEENT: atraumatic, normocephalic; no bruits, 2+ Aj without soreness or induration or enlargement, sclerae nonicteric. Oropharynx pink and moist. Neck: supple, no bruits. Heart: no murmur or extra sounds. Extremities: no clubbing, cyanosis or edema. No posterior tibial or dorsalis pedis pulses palpable on either side. - Vital Signs Vital signs: Vital Signs - 12hr 11/29/17 11/29/17 11/29/17 21:30 21:45 22:00 Temperature Pulse Rate 85 88 89 Pulse Rate [ Anterior Bilateral Throughout] Respiratory 18 18 18 Rate Respiratory Rate [Anterior Bilateral Throughout] Blood Pressure 144/66 154/74 159/74 O2 Sat by Pulse 95 95 94 Oximetry 11/29/17 11/29/17 11/29/17 22:15 22:30 22:45 Temperature Pulse Rate 90 91 H 96 H Pulse Rate [ Anterior Bilateral Throughout] Respiratory 18 18 18 Rate Respiratory Rate [Anterior Bilateral Throughout] Blood Pressure 163/73 166/76 177/77 O2 Sat by Pulse 93 93 92 Oximetry 11/29/17 11/29/17 11/29/17 23:00 23:10 23:16 Temperature 99.2 F Pulse Rate 101 H 104 H Pulse Rate [ Anterior Bilateral Throughout] Respiratory 26 H 24 Rate Respiratory Rate [Anterior Bilateral Throughout] Blood Pressure 177/77 186/75 O2 Sat by Pulse 93 91 Oximetry 11/29/17 11/29/17 11/29/17 23:19 23:30 23:45 Temperature Pulse Rate 104 H 104 H 103 H Pulse Rate [ Anterior Bilateral Throughout] Respiratory 21 20 Rate Respiratory Rate [Anterior Bilateral Throughout] Blood Pressure 186/75 177/77 138/70 O2 Sat by Pulse 91 91 91 Oximetry 11/30/17 11/30/17 11/30/17 00:00 00:06 00:10 Temperature Pulse Rate 102 H 102 H 104 H Pulse Rate [ Anterior Bilateral Throughout] Respiratory 22 20 22 Rate Respiratory Rate [Anterior Bilateral Throughout] Blood Pressure 138/66 138/66 130/69 O2 Sat by Pulse 91 91 95 Oximetry 11/30/17 11/30/17 11/30/17 00:15 00:30 00:45 Temperature Pulse Rate 104 H 104 H 104 H Pulse Rate [ Anterior Bilateral Throughout] Respiratory 24 20 22 Rate Respiratory Rate [Anterior Bilateral Throughout] Blood Pressure 130/69 129/69 131/66 O2 Sat by Pulse 90 91 91 Oximetry 11/30/17 11/30/17 11/30/17 01:00 01:15 01:30 Temperature Pulse Rate 105 H 105 H 105 H Pulse Rate [ Anterior Bilateral Throughout] Respiratory 22 22 18 Rate Respiratory Rate [Anterior Bilateral Throughout] Blood Pressure 127/67 128/68 128/68 O2 Sat by Pulse 90 90 91 Oximetry 11/30/17 11/30/17 11/30/17 01:46 01:54 01:55 Temperature Pulse Rate 102 H 102 H Pulse Rate [ 101 H Anterior Bilateral Throughout] Respiratory 18 22 Rate Respiratory 22 Rate [Anterior Bilateral Throughout] Blood Pressure 128/68 O2 Sat by Pulse 90 95 Oximetry 11/30/17 11/30/17 11/30/17 02:00 02:01 02:16 Temperature Pulse Rate 100 H 101 H Pulse Rate [ 101 H Anterior Bilateral Throughout] Respiratory 18 20 Rate Respiratory 21 Rate [Anterior Bilateral Throughout] Blood Pressure 128/68 106/55 O2 Sat by Pulse 94 90 Oximetry 11/30/17 11/30/17 11/30/17 02:30 02:46 03:00 Temperature Pulse Rate 102 H 102 H 102 H Pulse Rate [ Anterior Bilateral Throughout] Respiratory 22 22 22 Rate Respiratory Rate [Anterior Bilateral Throughout] Blood Pressure 106/55 124/67 114/66 O2 Sat by Pulse 90 90 91 Oximetry 11/30/17 11/30/17 11/30/17 03:16 03:30 03:41 Temperature Pulse Rate 103 H 105 H 105 H Pulse Rate [ Anterior Bilateral Throughout] Respiratory 22 22 22 Rate Respiratory Rate [Anterior Bilateral Throughout] Blood Pressure 114/66 114/66 O2 Sat by Pulse 91 91 95 Oximetry 11/30/17 11/30/17 11/30/17 03:46 04:00 04:15 Temperature 99.2 F Pulse Rate 103 H 104 H Pulse Rate [ Anterior Bilateral Throughout] Respiratory 22 20 Rate Respiratory Rate [Anterior Bilateral Throughout] Blood Pressure 114/66 121/76 O2 Sat by Pulse 94 92 Oximetry 11/30/17 11/30/17 11/30/17 04:16 04:30 04:46 Temperature Pulse Rate 104 H 104 H 105 H Pulse Rate [ Anterior Bilateral Throughout] Respiratory 21 22 22 Rate Respiratory Rate [Anterior Bilateral Throughout] Blood Pressure 121/76 121/76 121/76 O2 Sat by Pulse 91 92 92 Oximetry 11/30/17 11/30/17 11/30/17 05:00 05:16 05:30 Temperature Pulse Rate 103 H 105 H 105 H Pulse Rate [ Anterior Bilateral Throughout] Respiratory 19 21 20 Rate Respiratory Rate [Anterior Bilateral Throughout] Blood Pressure 121/76 141/78 141/78 O2 Sat by Pulse 92 92 92 Oximetry 11/30/17 11/30/17 11/30/17 05:46 05:48 06:00 Temperature Pulse Rate 104 H 105 H Pulse Rate [ Anterior Bilateral Throughout] Respiratory 19 22 18 Rate Respiratory Rate [Anterior Bilateral Throughout] Blood Pressure 141/78 141/78 O2 Sat by Pulse 91 95 92 Oximetry 11/30/17 11/30/17 11/30/17 06:16 06:30 06:46 Temperature Pulse Rate 105 H 106 H 105 H Pulse Rate [ Anterior Bilateral Throughout] Respiratory 20 19 20 Rate Respiratory Rate [Anterior Bilateral Throughout] Blood Pressure 153/76 153/76 153/76 O2 Sat by Pulse 92 91 91 Oximetry 11/30/17 11/30/17 11/30/17 07:00 07:16 07:30 Temperature Pulse Rate 106 H 109 H 108 H Pulse Rate [ Anterior Bilateral Throughout] Respiratory 19 21 20 Rate Respiratory Rate [Anterior Bilateral Throughout] Blood Pressure 153/76 159/72 159/72 O2 Sat by Pulse 92 91 91 Oximetry 11/30/17 11/30/17 11/30/17 07:46 07:54 08:00 Temperature 100.8 F H Pulse Rate 107 H 105 H 106 H Pulse Rate [ Anterior Bilateral Throughout] Respiratory 19 19 Rate Respiratory Rate [Anterior Bilateral Throughout] Blood Pressure 159/72 159/72 159/72 O2 Sat by Pulse 91 91 90 Oximetry 11/30/17 11/30/17 08:07 08:16 Temperature Pulse Rate 108 H Pulse Rate [ 104 H Anterior Bilateral Throughout] Respiratory 22 Rate Respiratory 18 Rate [Anterior Bilateral Throughout] Blood Pressure 126/66 O2 Sat by Pulse 92 Oximetry - Lab 11/30/17 03:48 11/30/17 03:48 Most recent lab results Calcium 7.6 mg/dL (8.4-10.2) L 11/30/17 03:48 Magnesium 1.90 mg/dL (1.7-2.3) 11/28/17 03:17
[2017-11-30] MEDS: PEPCID IV SCH ×2 (09:57→22:05)
[2017-11-30] MEDS: BENADRYL IV SCH (09:58)
[2017-11-30] MEDS: TAMIFLU PO SCH ×2 (10:00→22:09)
[2017-11-30] MEDS: TYLENOL FEEDTUBE PRN ×3 (10:41→23:43)
--- NOTE | 2017-11-30 11:49 | Progress Note ---
Assessment and Plan This unfortunate 56 year old female who was found pulseless, in asystole on and resuscitated, remains with no neurological function at this time. CT confirms severe anoxic damage from 11/26/17. EEG reveals no cortical activity. She is off all sedation. Patient fits criteria for brain , cortical. Brain stem has function. Plan - Will repeat CT, EEG as confirmatory of dismal prognosis and discuss with family. Subjective Date of service: 11/30/17 Principal diagnosis: Acute Hypoxemic Resp Failure; S/P Cardiac Arrest; Acute Encephalopathy Interval history: This 56 year old female was found down on 11/23/17, lives in a dwelling with another family. She was found by the homeowner who called EMS. When they arrived she was cold and without pulse. A cardiac rhythm was obtained with epinephrine injection and ACLS protocol followed. The pt. has a history of type II diabetes, COPD. She smokes 1 1/2 PPD for 30 years. She developed myoclonus after admission to [facility] which seems to be under control withKeppra and oxcarbazepine. CT from 11/26/17 reveals cerebral edema with some sparing of right frontal areas. There is ischemic change in bilateral basal ganglia, cerebellum. Consistent with anoxic encephalopathy. 11/29/17 - The patient continues on the ventilator, unresponsive, off sedation. Cardiac status has been stable. She has had no myoclonus or seizure activity over past 24 hours. 11/30/17 Patient continues on ventilator, unresponsive, off sedation. Spoke with brother yesterday about her grim prognosis, cerebral inactivity on EEG. A trial off the ventilator resulted in her breathing spontaneously, so brain stem is not , although all other brain stem neurologic functions are not present. Objective - Exam Narrative Exam: HEENT - no myoclonus or seizure activity. eyes closed. pupils 3 to 4 mm and not reactive. Heart - rate of 84. Regular. Nl S-1 and S-2. Lungs - end inspiratory and expiratory wheeze Abdomen - soft. min. bowel sounds. Extremities - no edema. no lesions. Neuro - unresponsive on ventilator. loan interviewer mortgage - eyes are midline absent corneals. face symmetric. No response to suctioning. Motor - no spontaneous movement. no movement to deep pain stimuli bilaterally. Sensory - as above. Reflexes - absent throughout. EEG performed yesterday reveals no brain activity, in keeping with what we are seeing on exam. Apnea test positive for spontaneous respiration. - Vital Sign Vital Signs - 12hr 11/29/17 11/30/17 11/30/17 23:45 00:00 00:06 Temperature Pulse Rate 103 H 102 H 102 H Pulse Rate [ Anterior Bilateral Throughout] Respiratory 20 22 20 Rate Respiratory Rate [Anterior Bilateral Throughout] Blood Pressure 138/70 138/66 138/66 O2 Sat by Pulse 91 91 91 Oximetry 11/30/17 11/30/17 11/30/17 00:10 00:15 00:30 Temperature Pulse Rate 104 H 104 H 104 H Pulse Rate [ Anterior Bilateral Throughout] Respiratory 22 24 20 Rate Respiratory Rate [Anterior Bilateral Throughout] Blood Pressure 130/69 130/69 129/69 O2 Sat by Pulse 95 90 91 Oximetry 11/30/17 11/30/17 11/30/17 00:45 01:00 01:15 Temperature Pulse Rate 104 H 105 H 105 H Pulse Rate [ Anterior Bilateral Throughout] Respiratory 22 22 22 Rate Respiratory Rate [Anterior Bilateral Throughout] Blood Pressure 131/66 127/67 128/68 O2 Sat by Pulse 91 90 90 Oximetry 11/30/17 11/30/17 11/30/17 01:30 01:46 01:54 Temperature Pulse Rate 105 H 102 H Pulse Rate [ 101 H Anterior Bilateral Throughout] Respiratory 18 18 Rate Respiratory 22 Rate [Anterior Bilateral Throughout] Blood Pressure 128/68 128/68 O2 Sat by Pulse 91 90 Oximetry 11/30/17 11/30/17 11/30/17 01:55 02:00 02:01 Temperature Pulse Rate 102 H 100 H Pulse Rate [ 101 H Anterior Bilateral Throughout] Respiratory 22 18 Rate Respiratory 21 Rate [Anterior Bilateral Throughout] Blood Pressure 128/68 O2 Sat by Pulse 95 94 Oximetry 11/30/17 11/30/17 11/30/17 02:16 02:30 02:46 Temperature Pulse Rate 101 H 102 H 102 H Pulse Rate [ Anterior Bilateral Throughout] Respiratory 20 22 22 Rate Respiratory Rate [Anterior Bilateral Throughout] Blood Pressure 106/55 106/55 124/67 O2 Sat by Pulse 90 90 90 Oximetry 11/30/17 11/30/17 11/30/17 03:00 03:16 03:30 Temperature Pulse Rate 102 H 103 H 105 H Pulse Rate [ Anterior Bilateral Throughout] Respiratory 22 22 22 Rate Respiratory Rate [Anterior Bilateral Throughout] Blood Pressure 114/66 114/66 114/66 O2 Sat by Pulse 91 91 91 Oximetry 11/30/17 11/30/17 11/30/17 03:41 03:46 04:00 Temperature Pulse Rate 105 H 103 H 104 H Pulse Rate [ Anterior Bilateral Throughout] Respiratory 22 22 20 Rate Respiratory Rate [Anterior Bilateral Throughout] Blood Pressure 114/66 121/76 O2 Sat by Pulse 95 94 92 Oximetry 11/30/17 11/30/17 11/30/17 04:15 04:16 04:30 Temperature 99.2 F Pulse Rate 104 H 104 H Pulse Rate [ Anterior Bilateral Throughout] Respiratory 21 22 Rate Respiratory Rate [Anterior Bilateral Throughout] Blood Pressure 121/76 121/76 O2 Sat by Pulse 91 92 Oximetry 11/30/17 11/30/17 11/30/17 04:46 05:00 05:16 Temperature Pulse Rate 105 H 103 H 105 H Pulse Rate [ Anterior Bilateral Throughout] Respiratory 22 19 21 Rate Respiratory Rate [Anterior Bilateral Throughout] Blood Pressure 121/76 121/76 141/78 O2 Sat by Pulse 92 92 92 Oximetry 11/30/17 11/30/17 11/30/17 05:30 05:46 05:48 Temperature Pulse Rate 105 H 104 H Pulse Rate [ Anterior Bilateral Throughout] Respiratory 20 19 22 Rate Respiratory Rate [Anterior Bilateral Throughout] Blood Pressure 141/78 141/78 O2 Sat by Pulse 92 91 95 Oximetry 11/30/17 11/30/17 11/30/17 06:00 06:16 06:30 Temperature Pulse Rate 105 H 105 H 106 H Pulse Rate [ Anterior Bilateral Throughout] Respiratory 18 20 19 Rate Respiratory Rate [Anterior Bilateral Throughout] Blood Pressure 141/78 153/76 153/76 O2 Sat by Pulse 92 92 91 Oximetry 11/30/17 11/30/17 11/30/17 06:46 07:00 07:16 Temperature Pulse Rate 105 H 106 H 109 H Pulse Rate [ Anterior Bilateral Throughout] Respiratory 20 19 21 Rate Respiratory Rate [Anterior Bilateral Throughout] Blood Pressure 153/76 153/76 159/72 O2 Sat by Pulse 91 92 91 Oximetry 11/30/17 11/30/17 11/30/17 07:30 07:46 07:54 Temperature Pulse Rate 108 H 107 H 105 H Pulse Rate [ Anterior Bilateral Throughout] Respiratory 20 19 Rate Respiratory Rate [Anterior Bilateral Throughout] Blood Pressure 159/72 159/72 159/72 O2 Sat by Pulse 91 91 91 Oximetry 11/30/17 11/30/17 11/30/17 08:00 08:07 08:15 Temperature 100.8 F H Pulse Rate 106 H Pulse Rate [ 104 H 104 H Anterior Bilateral Throughout] Respiratory 19 Rate Respiratory 18 18 Rate [Anterior Bilateral Throughout] Blood Pressure 159/72 O2 Sat by Pulse 90 Oximetry 11/30/17 11/30/17 11/30/17 08:16 08:30 08:46 Temperature Pulse Rate 108 H 109 H 108 H Pulse Rate [ Anterior Bilateral Throughout] Respiratory 22 20 20 Rate Respiratory Rate [Anterior Bilateral Throughout] Blood Pressure 126/66 126/66 126/66 O2 Sat by Pulse 92 92 92 Oximetry 11/30/17 11/30/17 11/30/17 09:00 09:16 09:30 Temperature Pulse Rate 108 H 108 H 108 H Pulse Rate [ Anterior Bilateral Throughout] Respiratory 19 20 20 Rate Respiratory Rate [Anterior Bilateral Throughout] Blood Pressure 126/66 125/71 125/71 O2 Sat by Pulse 92 92 91 Oximetry 11/30/17 11/30/17 11/30/17 09:46 10:00 10:16 Temperature Pulse Rate 107 H 108 H 110 H Pulse Rate [ Anterior Bilateral Throughout] Respiratory 20 21 19 Rate Respiratory Rate [Anterior Bilateral Throughout] Blood Pressure 125/71 139/70 139/70 O2 Sat by Pulse 91 91 92 Oximetry 11/30/17 11/30/17 11/30/17 10:30 10:46 11:00 Temperature Pulse Rate 109 H 110 H 109 H Pulse Rate [ Anterior Bilateral Throughout] Respiratory 18 19 21 Rate Respiratory Rate [Anterior Bilateral Throughout] Blood Pressure 139/70 139/70 155/74 O2 Sat by Pulse 92 93 92 Oximetry 11/30/17 11:28 Temperature Pulse Rate 108 H Pulse Rate [ Anterior Bilateral Throughout] Respiratory Rate Respiratory Rate [Anterior Bilateral Throughout] Blood Pressure 155/74 O2 Sat by Pulse 92 Oximetry - Laboratory Findings CBC and BMP: 11/30/17 03:48 11/30/17 03:48 Abnormal Lab Findings: Abnormal Labs 11/23/17 11/23/17 11/23/17 12:44 12:44 12:44 WBC 13.0 H RBC Hgb Hct 46.1 H MCV 112 H MCH 33 H MCHC 29 L RDW 18.5 H Plt Count Lymph % (Auto) [place] % (Auto) Lymph # [place] # Eos # Seg Neutrophils % Seg Neuts % (Manual) 71.0 H Monocytes % (Manual) 8.0 H Nucleated RBC % 6.0 H Seg Neutrophils # Seg Neutrophils # Man 9.2 H Monocytes # (Manual) 1.0 H PT 15.3 H INR 1.15 H D-Dimer POC ABG pH POC ABG pCO2 POC ABG pO2 Sodium Potassium 5.4 H Chloride 85.2 L Carbon Dioxide BUN 19 H Creatinine 1.3 H Glucose 175 H POC Glucose Lactic Acid Calcium AST 310 H ALT 262 H C-Reactive Protein Total Protein 5.7 L Albumin 2.9 L Salicylates 11/23/17 11/23/17 11/23/17 12:44 13:23 15:54 WBC RBC Hgb Hct MCV MCH MCHC RDW Plt Count Lymph % (Auto) [place] % (Auto) Lymph # [place] # Eos # Seg Neutrophils % Seg Neuts % (Manual) Monocytes % (Manual) Nucleated RBC % Seg Neutrophils # Seg Neutrophils # Man Monocytes # (Manual) PT INR D-Dimer POC ABG pH 7.035 L POC ABG pCO2 99.1 H POC ABG pO2 343 H Sodium Potassium Chloride Carbon Dioxide BUN Creatinine Glucose POC Glucose Lactic Acid 16.10 H* Calcium AST ALT C-Reactive Protein Total Protein Albumin Salicylates < 0.3 L 11/23/17 11/24/17 11/24/17 16:42 04:03 04:03 WBC 16.8 H RBC Hgb 15.7 H Hct 48.9 H MCV 101 H MCH MCHC RDW 16.5 H Plt Count Lymph % (Auto) 5.2 L [place] % (Auto) Lymph # 0.9 L [place] # 0.9 H Eos # Seg Neutrophils % 89.1 H Seg Neuts % (Manual) Monocytes % (Manual) Nucleated RBC % Seg Neutrophils # 14.9 H Seg Neutrophils # Man Monocytes # (Manual) PT INR D-Dimer POC ABG pH POC ABG pCO2 POC ABG pO2 55 L Sodium Potassium Chloride 96.0 L Carbon Dioxide 33 H D BUN 28 H Creatinine 1.5 H Glucose 108 H POC Glucose Lactic Acid Calcium 7.7 L AST 1091 H ALT 986 H C-Reactive Protein Total Protein 5.0 L Albumin 2.8 L Salicylates 11/24/17 11/24/17 11/24/17 05:55 13:29 13:29 WBC RBC Hgb Hct MCV MCH MCHC RDW Plt Count Lymph % (Auto) [place] % (Auto) Lymph # [place] # Eos # Seg Neutrophils % Seg Neuts % (Manual) Monocytes % (Manual) Nucleated RBC % Seg Neutrophils # Seg Neutrophils # Man Monocytes # (Manual) PT INR D-Dimer POC ABG pH 7.469 H POC ABG pCO2 52.3 H POC ABG pO2 69 L Sodium Potassium Chloride Carbon Dioxide BUN Creatinine Glucose POC Glucose Lactic Acid 3.20 H* Calcium AST ALT C-Reactive Protein 9.20 H Total Protein Albumin Salicylates 11/24/17 11/24/17 11/25/17 14:44 20:55 01:55 WBC RBC Hgb Hct MCV MCH MCHC RDW Plt Count Lymph % (Auto) [place] % (Auto) Lymph # [place] # Eos # Seg Neutrophils % Seg Neuts % (Manual) Monocytes % (Manual) Nucleated RBC % Seg Neutrophils # Seg Neutrophils # Man Monocytes # (Manual) PT INR D-Dimer 1977.37 H POC ABG pH 7.471 H POC ABG pCO2 56.2 H POC ABG pO2 Sodium Potassium Chloride Carbon Dioxide BUN Creatinine Glucose POC Glucose Lactic Acid 3.00 H* Calcium AST ALT C-Reactive Protein Total Protein Albumin Salicylates 11/25/17 11/25/17 11/25/17 03:02 03:02 03:02 WBC 16.0 H RBC Hgb Hct MCV 99 H MCH MCHC RDW 16.0 H Plt Count Lymph % (Auto) 11.6 L [place] % (Auto) Lymph # [place] # 1.0 H Eos # Seg Neutrophils % 81.8 H Seg Neuts % (Manual) Monocytes % (Manual) Nucleated RBC % Seg Neutrophils # 13.1 H Seg Neutrophils # Man Monocytes # (Manual) PT INR D-Dimer POC ABG pH POC ABG pCO2 POC ABG pO2 Sodium 148 H Potassium Chloride Carbon Dioxide 35 H BUN 30 H Creatinine 1.9 H Glucose 106 H POC Glucose Lactic Acid 2.90 H* Calcium 7.0 L AST ALT C-Reactive Protein Total Protein Albumin Salicylates 11/25/17 11/25/17 11/25/17 03:02 03:35 07:15 WBC RBC Hgb Hct MCV MCH MCHC RDW Plt Count Lymph % (Auto) [place] % (Auto) Lymph # [place] # Eos # Seg Neutrophils % Seg Neuts % (Manual) Monocytes % (Manual) Nucleated RBC % Seg Neutrophils # Seg Neutrophils # Man Monocytes # (Manual) PT INR D-Dimer POC ABG pH 7.494 H POC ABG pCO2 48.1 H POC ABG pO2 Sodium Potassium Chloride Carbon Dioxide BUN Creatinine Glucose POC Glucose Lactic Acid 2.30 H* Calcium AST 300 H ALT 561 H C-Reactive Protein Total Protein 4.5 L Albumin 2.4 L Salicylates 11/26/17 11/26/17 11/26/17 03:26 03:26 03:52 WBC 12.7 H RBC Hgb 14.9 H Hct 45.9 H MCV 98 H MCH MCHC RDW 16.3 H Plt Count 137 L Lymph % (Auto) 10.0 L [place] % (Auto) Lymph # [place] # Eos # Seg Neutrophils % 82.7 H Seg Neuts % (Manual) Monocytes % (Manual) Nucleated RBC % Seg Neutrophils # 10.5 H Seg Neutrophils # Man Monocytes # (Manual) PT INR D-Dimer POC ABG pH 7.475 H POC ABG pCO2 POC ABG pO2 71 L Sodium 150 H Potassium 3.3 L Chloride Carbon Dioxide BUN 22 H Creatinine 1.7 H Glucose 107 H POC Glucose Lactic Acid Calcium 7.5 L AST ALT C-Reactive Protein Total Protein Albumin Salicylates 11/26/17 11/26/17 11/26/17 11:49 17:53 23:56 WBC RBC Hgb Hct MCV MCH MCHC RDW Plt Count Lymph % (Auto) [place] % (Auto) Lymph # [place] # Eos # Seg Neutrophils % Seg Neuts % (Manual) Monocytes % (Manual) Nucleated RBC % Seg Neutrophils # Seg Neutrophils # Man Monocytes # (Manual) PT INR D-Dimer POC ABG pH POC ABG pCO2 POC ABG pO2 Sodium Potassium Chloride Carbon Dioxide BUN Creatinine Glucose POC Glucose 109 H 168 H 145 H Lactic Acid Calcium AST ALT C-Reactive Protein Total Protein Albumin Salicylates 11/27/17 11/27/17 11/27/17 04:22 04:22 04:53 WBC 11.7 H RBC Hgb 15.7 H Hct 49.8 H MCV 100 H MCH MCHC RDW 16.4 H Plt Count 105 L Lymph % (Auto) 7.6 L [place] % (Auto) 8.7 H Lymph # 0.9 L [place] # 1.0 H Eos # Seg Neutrophils % 83.2 H Seg Neuts % (Manual) Monocytes % (Manual) Nucleated RBC % Seg Neutrophils # 9.7 H Seg Neutrophils # Man Monocytes # (Manual) PT INR D-Dimer POC ABG pH POC ABG pCO2 53.1 H POC ABG pO2 70 L Sodium 155 H Potassium Chloride 113.1 H Carbon Dioxide BUN Creatinine 1.5 H Glucose 128 H POC Glucose Lactic Acid Calcium 7.4 L AST ALT C-Reactive Protein Total Protein Albumin Salicylates 11/27/17 11/27/17 11/27/17 05:34 11:27 16:18 WBC RBC Hgb Hct MCV MCH MCHC RDW Plt Count Lymph % (Auto) [place] % (Auto) Lymph # [place] # Eos # Seg Neutrophils % Seg Neuts % (Manual) Monocytes % (Manual) Nucleated RBC % Seg Neutrophils # Seg Neutrophils # Man Monocytes # (Manual) PT INR D-Dimer POC ABG pH POC ABG pCO2 POC ABG pO2 Sodium Potassium Chloride Carbon Dioxide BUN Creatinine Glucose POC Glucose 120 H 129 H Lactic Acid Calcium AST ALT C-Reactive Protein 13.70 H Total Protein Albumin Salicylates 11/27/17 11/27/17 11/28/17 17:19 23:56 03:17 WBC 14.5 H RBC Hgb 15.2 H Hct 48.3 H MCV 99 H MCH MCHC RDW 16.5 H Plt Count 108 L Lymph % (Auto) 9.7 L [place] % (Auto) Lymph # [place] # 1.0 H Eos # Seg Neutrophils % 81.0 H Seg Neuts % (Manual) Monocytes % (Manual) Nucleated RBC % Seg Neutrophils # 11.8 H Seg Neutrophils # Man Monocytes # (Manual) PT INR D-Dimer POC ABG pH POC ABG pCO2 POC ABG pO2 Sodium Potassium Chloride Carbon Dioxide BUN Creatinine Glucose POC Glucose 138 H 125 H Lactic Acid Calcium AST ALT C-Reactive Protein Total Protein Albumin Salicylates 11/28/17 11/28/17 11/28/17 03:17 05:34 06:46 WBC RBC Hgb Hct MCV MCH MCHC RDW Plt Count Lymph % (Auto) [place] % (Auto) Lymph # [place] # Eos # Seg Neutrophils % Seg Neuts % (Manual) Monocytes % (Manual) Nucleated RBC % Seg Neutrophils # Seg Neutrophils # Man Monocytes # (Manual) PT INR D-Dimer POC ABG pH 7.324 L POC ABG pCO2 63.4 H POC ABG pO2 65 L Sodium 150 H Potassium 3.4 L Chloride 107.9 H Carbon Dioxide 31 H BUN 19 H Creatinine 1.3 H Glucose 126 H POC Glucose 132 H Lactic Acid Calcium 7.7 L AST ALT C-Reactive Protein Total Protein Albumin Salicylates 11/28/17 11/28/17 11/29/17 12:17 17:20 00:12 WBC RBC Hgb Hct MCV MCH MCHC RDW Plt Count Lymph % (Auto) [place] % (Auto) Lymph # [place] # Eos # Seg Neutrophils % Seg Neuts % (Manual) Monocytes % (Manual) Nucleated RBC % Seg Neutrophils # Seg Neutrophils # Man Monocytes # (Manual) PT INR D-Dimer POC ABG pH POC ABG pCO2 POC ABG pO2 Sodium Potassium Chloride Carbon Dioxide BUN Creatinine Glucose POC Glucose 142 H 136 H 119 H Lactic Acid Calcium AST ALT C-Reactive Protein Total Protein Albumin Salicylates 11/29/17 11/29/17 11/29/17 04:36 04:47 04:47 WBC 14.1 H RBC 5.32 H Hgb 16.4 H Hct 51.2 H MCV MCH MCHC RDW 15.8 H Plt Count 77 L Lymph % (Auto) 7.6 L [place] % (Auto) Lymph # 1.1 L [place] # 0.9 H Eos # 0.5 H Seg Neutrophils % 81.5 H Seg Neuts % (Manual) Monocytes % (Manual) Nucleated RBC % Seg Neutrophils # 11.5 H Seg Neutrophils # Man Monocytes # (Manual) PT INR D-Dimer POC ABG pH POC ABG pCO2 POC ABG pO2 61 L Sodium Potassium Chloride Carbon Dioxide BUN 18 H Creatinine Glucose 119 H POC Glucose Lactic Acid Calcium 8.2 L AST ALT C-Reactive Protein Total Protein Albumin Salicylates 11/29/17 11/29/17 11/29/17 05:29 11:48 17:32 WBC RBC Hgb Hct MCV MCH MCHC RDW Plt Count Lymph % (Auto) [place] % (Auto) Lymph # [place] # Eos # Seg Neutrophils % Seg Neuts % (Manual) Monocytes % (Manual) Nucleated RBC % Seg Neutrophils # Seg Neutrophils # Man Monocytes # (Manual) PT INR D-Dimer POC ABG pH POC ABG pCO2 POC ABG pO2 Sodium Potassium Chloride Carbon Dioxide BUN Creatinine Glucose POC Glucose 128 H 128 H 124 H Lactic Acid Calcium AST ALT C-Reactive Protein Total Protein Albumin Salicylates 11/29/17 11/30/1718 17:39 03:48 03:48 WBC 13.5 H RBC Hgb 15.4 H Hct 47.2 H MCV MCH MCHC RDW 16.3 H Plt Count Lymph % (Auto) 10.5 L [place] % (Auto) 7.7 H Lymph # [place] # 1.0 H Eos # 0.5 H Seg Neutrophils % 76.8 H Seg Neuts % (Manual) Monocytes % (Manual) Nucleated RBC % Seg Neutrophils # 10.4 H Seg Neutrophils # Man Monocytes # (Manual) PT INR D-Dimer POC ABG pH POC ABG pCO2 51.6 H POC ABG pO2 345 H Sodium Potassium Chloride Carbon Dioxide BUN Creatinine Glucose 121 H POC Glucose Lactic Acid Calcium 7.6 L AST ALT C-Reactive Protein Total Protein Albumin Salicylates 11/30/17 03:52 WBC RBC Hgb Hct MCV MCH MCHC RDW Plt Count Lymph % (Auto) [place] % (Auto) Lymph # [place] # Eos # Seg Neutrophils % Seg Neuts % (Manual) Monocytes % (Manual) Nucleated RBC % Seg Neutrophils # Seg Neutrophils # Man Monocytes # (Manual) PT INR D-Dimer POC ABG pH 7.503 H POC ABG pCO2 POC ABG pO2 65 L Sodium Potassium Chloride Carbon Dioxide BUN Creatinine Glucose POC Glucose Lactic Acid Calcium AST ALT C-Reactive Protein Total Protein Albumin Salicylates
--- NOTE | 2017-11-30 12:16 | Progress Note ---
Assessment and Plan Acute hypoxemic respiratory failure, on mechanical ventilatory support. Status post cardiac arrest. Likely aspiration pneumonia. Acute encephalopathy with myoclonic jerks Acute exacerbation of chronic obstructive pulmonary disease. h/o Nicotine dependence/Tobacco use disorder. Obesity. Hypertension. History of alcohol abuse - continue full MVS - Neurology notes reviewed, for repeat CT head and EEG in view of spontaneous respirations yesterday - continue aspiration precautions / address VAP bundle daily - continue bronchodilators and pulmonary hygiene - continue to wean oxygen for sats > 90% - NGT to LIS for now - continue GI & VTE prophylaxis - continue empiric antibiotics and follow C&S - continue other care per attending/ other consultants ....remains critically ill on MVS and at high risk for further deterioration including ..35' CCT Discussed with Neurology in detail, and patient's brother. we will need to have discussions with the son as to goals of care, since he is the POA. Disucssed with RT, RN and the team on interdisciplinary rounds. Subjective Date of service: 11/30/17 Principal diagnosis: Acute Hypoxemic Resp Failure; S/P Cardiac Arrest; Acute Encephalopathy Interval history: unresponsive following cardiopulmonary arrest, acute hypoxic respiratory failure, sepsis History of present illness per medical records: This 56-year-old right handed (per son) white female was admitted yesterday having last been normal 6 AM yesterday morning according to her roommate (per ER notes here). Her son states she may have been down for several hours before found again. EMS found her to be cold, pulseless and in asystole area they were unable to intubate her but eventually got accompanied to be in. They have difficulty getting an IV established until just prior to arriving at the ER and at that time she got 1 dose of epinephrine though was still pulseless and unresponsive at the ER with emesis filling the Combitube. Pupils were stated to be fixed and dilated with no withdrawal to pain. She was then intubated. She was given 1 dose of epinephrine and 1 of sodium bicarbonate during ACLS protocol. She had lactic acidosis of about 16, elevated liver enzymes and ABG showing respiratory acidosis. CT scan is read as normal but to me may be showing posterior effaced sulci. She was started on Keppra 750 mg IV every 12. She was noted to have some history of COPD and alcohol abuse. Her son has a bag of her medications from home including multiple inhalers (Combivent, Advair , Ventolin) as well as Mobic, Robitussin-DM generic syrup, and ipratropium dose apparently for nebulizer Patient was seen and examined. Vitals, labs, medications, chart, imaging was reviewed. No acute overnight events were reported. She remains orally intubated on mechanical ventilatory support. Discussed with RT and RN at the bedside Discussed with Neurology service. High grade fevers overnight, cultures obtained, discussed with ID service Objective - Exam Narrative Exam: Constitutional: other (encephalopathic) Eyes: non-icteric ENT: oropharynx moist, other (ETT in place) Neck: supple, no lymphadenopathy, no JVD, other (No thyromegaly) Effort: labored Ascultation: Bilateral: diminished breath sounds, rhonchi Cardiovascular: regular rate and rhythm, other (no rubs/murmurs) Gastrointestinal: hypoactive bowel sounds, soft, non-tender, non-distended, other (No HSM) Integumentary: rash Extremities: no cyanosis, pink and warm, pulses normal, no ischemia or petechiae , edema Neurologic: unable to assess Psychiatric: other (unable to assess re: AMS) Vital Signs - 12hr 11/30/17 11/30/17 11/30/17 00:15 00:30 00:45 Temperature Pulse Rate 104 H 104 H 104 H Pulse Rate [ Anterior Bilateral Throughout] Respiratory 24 20 22 Rate Respiratory Rate [Anterior Bilateral Throughout] Blood Pressure 130/69 129/69 131/66 O2 Sat by Pulse 90 91 91 Oximetry 11/30/17 11/30/17 11/30/17 01:00 01:15 01:30 Temperature Pulse Rate 105 H 105 H 105 H Pulse Rate [ Anterior Bilateral Throughout] Respiratory 22 22 18 Rate Respiratory Rate [Anterior Bilateral Throughout] Blood Pressure 127/67 128/68 128/68 O2 Sat by Pulse 90 90 91 Oximetry 11/30/17 11/30/17 11/30/17 01:46 01:54 01:55 Temperature Pulse Rate 102 H 102 H Pulse Rate [ 101 H Anterior Bilateral Throughout] Respiratory 18 22 Rate Respiratory 22 Rate [Anterior Bilateral Throughout] Blood Pressure 128/68 O2 Sat by Pulse 90 95 Oximetry 11/30/17 11/30/17 11/30/17 02:00 02:01 02:16 Temperature Pulse Rate 100 H 101 H Pulse Rate [ 101 H Anterior Bilateral Throughout] Respiratory 18 20 Rate Respiratory 21 Rate [Anterior Bilateral Throughout] Blood Pressure 128/68 106/55 O2 Sat by Pulse 94 90 Oximetry 11/30/17 11/30/17 11/30/17 02:30 02:46 03:00 Temperature Pulse Rate 102 H 102 H 102 H Pulse Rate [ Anterior Bilateral Throughout] Respiratory 22 22 22 Rate Respiratory Rate [Anterior Bilateral Throughout] Blood Pressure 106/55 124/67 114/66 O2 Sat by Pulse 90 90 91 Oximetry 11/30/17 11/30/17 11/30/17 03:16 03:30 03:41 Temperature Pulse Rate 103 H 105 H 105 H Pulse Rate [ Anterior Bilateral Throughout] Respiratory 22 22 22 Rate Respiratory Rate [Anterior Bilateral Throughout] Blood Pressure 114/66 114/66 O2 Sat by Pulse 91 91 95 Oximetry 11/30/17 11/30/17 11/30/17 03:46 04:00 04:15 Temperature 99.2 F Pulse Rate 103 H 104 H Pulse Rate [ Anterior Bilateral Throughout] Respiratory 22 20 Rate Respiratory Rate [Anterior Bilateral Throughout] Blood Pressure 114/66 121/76 O2 Sat by Pulse 94 92 Oximetry 11/30/17 11/30/17 11/30/17 04:16 04:30 04:46 Temperature Pulse Rate 104 H 104 H 105 H Pulse Rate [ Anterior Bilateral Throughout] Respiratory 21 22 22 Rate Respiratory Rate [Anterior Bilateral Throughout] Blood Pressure 121/76 121/76 121/76 O2 Sat by Pulse 91 92 92 Oximetry 11/30/17 11/30/17 11/30/17 05:00 05:16 05:30 Temperature Pulse Rate 103 H 105 H 105 H Pulse Rate [ Anterior Bilateral Throughout] Respiratory 19 21 20 Rate Respiratory Rate [Anterior Bilateral Throughout] Blood Pressure 121/76 141/78 141/78 O2 Sat by Pulse 92 92 92 Oximetry 11/30/17 11/30/17 11/30/17 05:46 05:48 06:00 Temperature Pulse Rate 104 H 105 H Pulse Rate [ Anterior Bilateral Throughout] Respiratory 19 22 18 Rate Respiratory Rate [Anterior Bilateral Throughout] Blood Pressure 141/78 141/78 O2 Sat by Pulse 91 95 92 Oximetry 11/30/17 11/30/17 11/30/17 06:16 06:30 06:46 Temperature Pulse Rate 105 H 106 H 105 H Pulse Rate [ Anterior Bilateral Throughout] Respiratory 20 19 20 Rate Respiratory Rate [Anterior Bilateral Throughout] Blood Pressure 153/76 153/76 153/76 O2 Sat by Pulse 92 91 91 Oximetry 11/30/17 11/30/17 11/30/17 07:00 07:16 07:30 Temperature Pulse Rate 106 H 109 H 108 H Pulse Rate [ Anterior Bilateral Throughout] Respiratory 19 21 20 Rate Respiratory Rate [Anterior Bilateral Throughout] Blood Pressure 153/76 159/72 159/72 O2 Sat by Pulse 92 91 91 Oximetry 11/30/17 11/30/17 11/30/17 07:46 07:54 08:00 Temperature 100.8 F H Pulse Rate 107 H 105 H 106 H Pulse Rate [ Anterior Bilateral Throughout] Respiratory 19 19 Rate Respiratory Rate [Anterior Bilateral Throughout] Blood Pressure 159/72 159/72 159/72 O2 Sat by Pulse 91 91 90 Oximetry 11/30/17 11/30/17 11/30/17 08:07 08:15 08:16 Temperature Pulse Rate 108 H Pulse Rate [ 104 H 104 H Anterior Bilateral Throughout] Respiratory 22 Rate Respiratory 18 18 Rate [Anterior Bilateral Throughout] Blood Pressure 126/66 O2 Sat by Pulse 92 Oximetry 11/30/17 11/30/17 11/30/17 08:30 08:46 09:00 Temperature Pulse Rate 109 H 108 H 108 H Pulse Rate [ Anterior Bilateral Throughout] Respiratory 20 20 19 Rate Respiratory Rate [Anterior Bilateral Throughout] Blood Pressure 126/66 126/66 126/66 O2 Sat by Pulse 92 92 92 Oximetry 11/30/17 11/30/17 11/30/17 09:16 09:30 09:46 Temperature Pulse Rate 108 H 108 H 107 H Pulse Rate [ Anterior Bilateral Throughout] Respiratory 20 20 20 Rate Respiratory Rate [Anterior Bilateral Throughout] Blood Pressure 125/71 125/71 125/71 O2 Sat by Pulse 92 91 91 Oximetry 11/30/17 11/30/17 11/30/17 10:00 10:16 10:30 Temperature Pulse Rate 108 H 110 H 109 H Pulse Rate [ Anterior Bilateral Throughout] Respiratory 21 19 18 Rate Respiratory Rate [Anterior Bilateral Throughout] Blood Pressure 139/70 139/70 139/70 O2 Sat by Pulse 91 92 92 Oximetry 11/30/17 11/30/17 11/30/17 10:46 11:00 11:28 Temperature Pulse Rate 110 H 109 H 108 H Pulse Rate [ Anterior Bilateral Throughout] Respiratory 19 21 Rate Respiratory Rate [Anterior Bilateral Throughout] Blood Pressure 139/70 155/74 155/74 O2 Sat by Pulse 93 92 92 Oximetry Constitutional: other (encephalopathic) Eyes: non-icteric ENT: oropharynx moist, other (ETT in place) Neck: supple, no lymphadenopathy, no JVD, other (No thyromegaly) Effort: mildly labored Ascultation: Bilateral: diminished breath sounds, rhonchi Percussion: Bilateral: not dull Cardiovascular: regular rate and rhythm, other (no rubs/murmurs) Gastrointestinal: hypoactive bowel sounds, soft, non-tender, non-distended, other (No HSM) Integumentary: rash Extremities: no cyanosis, pink and warm, pulses normal, no ischemia or petechiae , edema Neurologic: unable to assess Psychiatric: other (unable to assess re: AMS) CBC and BMP: 11/30/17 03:48 11/30/17 03:48 ABG, PT/INR, D-dimer: ABG POC ABG pH 7.503 (7.35-7.45) H 11/30/17 03:52 POC ABG pCO2 39.7 (35-45) 11/30/17 03:52 POC ABG pO2 65 (80-105) L 11/30/17 03:52 POC ABG HCO3 31.1 11/30/17 03:52 POC ABG Total CO2 32 11/30/17 03:52 POC ABG O2 Sat 94 11/30/17 03:52 PT/INR, D-dimer PT 15.3 Sec. (12.2-14.9) H 11/23/17 12:44 INR 1.15 (0.87-1.13) H 11/23/17 12:44 D-Dimer 1977.37 ng/mlDDU (0-234) H 11/24/17 14:44 Abnormal lab findings: Abnormal Labs 11/23/17 11/23/17 11/23/17 12:44 12:44 12:44 WBC 13.0 H RBC Hgb Hct 46.1 H MCV 112 H MCH 33 H MCHC 29 L RDW 18.5 H Plt Count Lymph % (Auto) [place] % (Auto) Lymph # [place] # Eos # Seg Neutrophils % Seg Neuts % (Manual) 71.0 H Monocytes % (Manual) 8.0 H Nucleated RBC % 6.0 H Seg Neutrophils # Seg Neutrophils # Man 9.2 H Monocytes # (Manual) 1.0 H PT 15.3 H INR 1.15 H D-Dimer POC ABG pH POC ABG pCO2 POC ABG pO2 Sodium Potassium 5.4 H Chloride 85.2 L Carbon Dioxide BUN 19 H Creatinine 1.3 H Glucose 175 H POC Glucose Lactic Acid Calcium AST 310 H ALT 262 H C-Reactive Protein Total Protein 5.7 L Albumin 2.9 L Salicylates 11/23/17 11/23/17 11/23/17 12:44 13:23 15:54 WBC RBC Hgb Hct MCV MCH MCHC RDW Plt Count Lymph % (Auto) [place] % (Auto) Lymph # [place] # Eos # Seg Neutrophils % Seg Neuts % (Manual) Monocytes % (Manual) Nucleated RBC % Seg Neutrophils # Seg Neutrophils # Man Monocytes # (Manual) PT INR D-Dimer POC ABG pH 7.035 L POC ABG pCO2 99.1 H POC ABG pO2 343 H Sodium Potassium Chloride Carbon Dioxide BUN Creatinine Glucose POC Glucose Lactic Acid 16.10 H* Calcium AST ALT C-Reactive Protein Total Protein Albumin Salicylates < 0.3 L 11/23/17 11/24/17 11/24/17 16:42 04:03 04:03 WBC 16.8 H RBC Hgb 15.7 H Hct 48.9 H MCV 101 H MCH MCHC RDW 16.5 H Plt Count Lymph % (Auto) 5.2 L [place] % (Auto) Lymph # 0.9 L [place] # 0.9 H Eos # Seg Neutrophils % 89.1 H Seg Neuts % (Manual) Monocytes % (Manual) Nucleated RBC % Seg Neutrophils # 14.9 H Seg Neutrophils # Man Monocytes # (Manual) PT INR D-Dimer POC ABG pH POC ABG pCO2 POC ABG pO2 55 L Sodium Potassium Chloride 96.0 L Carbon Dioxide 33 H D BUN 28 H Creatinine 1.5 H Glucose 108 H POC Glucose Lactic Acid Calcium 7.7 L AST 1091 H ALT 986 H C-Reactive Protein Total Protein 5.0 L Albumin 2.8 L Salicylates 11/24/17 11/24/17 11/24/17 05:55 13:29 13:29 WBC RBC Hgb Hct MCV MCH MCHC RDW Plt Count Lymph % (Auto) [place] % (Auto) Lymph # [place] # Eos # Seg Neutrophils % Seg Neuts % (Manual) Monocytes % (Manual) Nucleated RBC % Seg Neutrophils # Seg Neutrophils # Man Monocytes # (Manual) PT INR D-Dimer POC ABG pH 7.469 H POC ABG pCO2 52.3 H POC ABG pO2 69 L Sodium Potassium Chloride Carbon Dioxide BUN Creatinine Glucose POC Glucose Lactic Acid 3.20 H* Calcium AST ALT C-Reactive Protein 9.20 H Total Protein Albumin Salicylates 11/24/17 11/24/17 11/25/17 14:44 20:55 01:55 WBC RBC Hgb Hct MCV MCH MCHC RDW Plt Count Lymph % (Auto) [place] % (Auto) Lymph # [place] # Eos # Seg Neutrophils % Seg Neuts % (Manual) Monocytes % (Manual) Nucleated RBC % Seg Neutrophils # Seg Neutrophils # Man Monocytes # (Manual) PT INR D-Dimer 1977.37 H POC ABG pH 7.471 H POC ABG pCO2 56.2 H POC ABG pO2 Sodium Potassium Chloride Carbon Dioxide BUN Creatinine Glucose POC Glucose Lactic Acid 3.00 H* Calcium AST ALT C-Reactive Protein Total Protein Albumin Salicylates 11/25/17 11/25/17 11/25/17 03:02 03:02 03:02 WBC 16.0 H RBC Hgb Hct MCV 99 H MCH MCHC RDW 16.0 H Plt Count Lymph % (Auto) 11.6 L [place] % (Auto) Lymph # [place] # 1.0 H Eos # Seg Neutrophils % 81.8 H Seg Neuts % (Manual) Monocytes % (Manual) Nucleated RBC % Seg Neutrophils # 13.1 H Seg Neutrophils # Man Monocytes # (Manual) PT INR D-Dimer POC ABG pH POC ABG pCO2 POC ABG pO2 Sodium 148 H Potassium Chloride Carbon Dioxide 35 H BUN 30 H Creatinine 1.9 H Glucose 106 H POC Glucose Lactic Acid 2.90 H* Calcium 7.0 L AST ALT C-Reactive Protein Total Protein Albumin Salicylates 11/25/17 11/25/17 11/25/17 03:02 03:35 07:15 WBC RBC Hgb Hct MCV MCH MCHC RDW Plt Count Lymph % (Auto) [place] % (Auto) Lymph # [place] # Eos # Seg Neutrophils % Seg Neuts % (Manual) Monocytes % (Manual) Nucleated RBC % Seg Neutrophils # Seg Neutrophils # Man Monocytes # (Manual) PT INR D-Dimer POC ABG pH 7.494 H POC ABG pCO2 48.1 H POC ABG pO2 Sodium Potassium Chloride Carbon Dioxide BUN Creatinine Glucose POC Glucose Lactic Acid 2.30 H* Calcium AST 300 H ALT 561 H C-Reactive Protein Total Protein 4.5 L Albumin 2.4 L Salicylates 11/26/17 11/26/17 11/26/17 03:26 03:26 03:52 WBC 12.7 H RBC Hgb 14.9 H Hct 45.9 H MCV 98 H MCH MCHC RDW 16.3 H Plt Count 137 L Lymph % (Auto) 10.0 L [place] % (Auto) Lymph # [place] # Eos # Seg Neutrophils % 82.7 H Seg Neuts % (Manual) Monocytes % (Manual) Nucleated RBC % Seg Neutrophils # 10.5 H Seg Neutrophils # Man Monocytes # (Manual) PT INR D-Dimer POC ABG pH 7.475 H POC ABG pCO2 POC ABG pO2 71 L Sodium 150 H Potassium 3.3 L Chloride Carbon Dioxide BUN 22 H Creatinine 1.7 H Glucose 107 H POC Glucose Lactic Acid Calcium 7.5 L AST ALT C-Reactive Protein Total Protein Albumin Salicylates 11/26/17 11/26/17 11/26/17 11:49 17:53 23:56 WBC RBC Hgb Hct MCV MCH MCHC RDW Plt Count Lymph % (Auto) [place] % (Auto) Lymph # [place] # Eos # Seg Neutrophils % Seg Neuts % (Manual) Monocytes % (Manual) Nucleated RBC % Seg Neutrophils # Seg Neutrophils # Man Monocytes # (Manual) PT INR D-Dimer POC ABG pH POC ABG pCO2 POC ABG pO2 Sodium Potassium Chloride Carbon Dioxide BUN Creatinine Glucose POC Glucose 109 H 168 H 145 H Lactic Acid Calcium AST ALT C-Reactive Protein Total Protein Albumin Salicylates 11/27/17 11/27/17 11/27/17 04:22 04:22 04:53 WBC 11.7 H RBC Hgb 15.7 H Hct 49.8 H MCV 100 H MCH MCHC RDW 16.4 H Plt Count 105 L Lymph % (Auto) 7.6 L [place] % (Auto) 8.7 H Lymph # 0.9 L [place] # 1.0 H Eos # Seg Neutrophils % 83.2 H Seg Neuts % (Manual) Monocytes % (Manual) Nucleated RBC % Seg Neutrophils # 9.7 H Seg Neutrophils # Man Monocytes # (Manual) PT INR D-Dimer POC ABG pH POC ABG pCO2 53.1 H POC ABG pO2 70 L Sodium 155 H Potassium Chloride 113.1 H Carbon Dioxide BUN Creatinine 1.5 H Glucose 128 H POC Glucose Lactic Acid Calcium 7.4 L AST ALT C-Reactive Protein Total Protein Albumin Salicylates 11/27/17 11/27/17 11/27/17 05:34 11:27 16:18 WBC RBC Hgb Hct MCV MCH MCHC RDW Plt Count Lymph % (Auto) [place] % (Auto) Lymph # [place] # Eos # Seg Neutrophils % Seg Neuts % (Manual) Monocytes % (Manual) Nucleated RBC % Seg Neutrophils # Seg Neutrophils # Man Monocytes # (Manual) PT INR D-Dimer POC ABG pH POC ABG pCO2 POC ABG pO2 Sodium Potassium Chloride Carbon Dioxide BUN Creatinine Glucose POC Glucose 120 H 129 H Lactic Acid Calcium AST ALT C-Reactive Protein 13.70 H Total Protein Albumin Salicylates 11/27/17 11/27/17 11/28/17 17:19 23:56 03:17 WBC 14.5 H RBC Hgb 15.2 H Hct 48.3 H MCV 99 H MCH MCHC RDW 16.5 H Plt Count 108 L Lymph % (Auto) 9.7 L [place] % (Auto) Lymph # [place] # 1.0 H Eos # Seg Neutrophils % 81.0 H Seg Neuts % (Manual) Monocytes % (Manual) Nucleated RBC % Seg Neutrophils # 11.8 H Seg Neutrophils # Man Monocytes # (Manual) PT INR D-Dimer POC ABG pH POC ABG pCO2 POC ABG pO2 Sodium Potassium Chloride Carbon Dioxide BUN Creatinine Glucose POC Glucose 138 H 125 H Lactic Acid Calcium AST ALT C-Reactive Protein Total Protein Albumin Salicylates 11/28/17 11/28/17 11/28/17 03:17 05:34 06:46 WBC RBC Hgb Hct MCV MCH MCHC RDW Plt Count Lymph % (Auto) [place] % (Auto) Lymph # [place] # Eos # Seg Neutrophils % Seg Neuts % (Manual) Monocytes % (Manual) Nucleated RBC % Seg Neutrophils # Seg Neutrophils # Man Monocytes # (Manual) PT INR D-Dimer POC ABG pH 7.324 L POC ABG pCO2 63.4 H POC ABG pO2 65 L Sodium 150 H Potassium 3.4 L Chloride 107.9 H Carbon Dioxide 31 H BUN 19 H Creatinine 1.3 H Glucose 126 H POC Glucose 132 H Lactic Acid Calcium 7.7 L AST ALT C-Reactive Protein Total Protein Albumin Salicylates 11/28/17 11/28/17 11/29/17 12:17 17:20 00:12 WBC RBC Hgb Hct MCV MCH MCHC RDW Plt Count Lymph % (Auto) [place] % (Auto) Lymph # [place] # Eos # Seg Neutrophils % Seg Neuts % (Manual) Monocytes % (Manual) Nucleated RBC % Seg Neutrophils # Seg Neutrophils # Man Monocytes # (Manual) PT INR D-Dimer POC ABG pH POC ABG pCO2 POC ABG pO2 Sodium Potassium Chloride Carbon Dioxide BUN Creatinine Glucose POC Glucose 142 H 136 H 119 H Lactic Acid Calcium AST ALT C-Reactive Protein Total Protein Albumin Salicylates 11/29/17 11/29/17 11/29/17 04:36 04:47 04:47 WBC 14.1 H RBC 5.32 H Hgb 16.4 H Hct 51.2 H MCV MCH MCHC RDW 15.8 H Plt Count 77 L Lymph % (Auto) 7.6 L [place] % (Auto) Lymph # 1.1 L [place] # 0.9 H Eos # 0.5 H Seg Neutrophils % 81.5 H Seg Neuts % (Manual) Monocytes % (Manual) Nucleated RBC % Seg Neutrophils # 11.5 H Seg Neutrophils # Man Monocytes # (Manual) PT INR D-Dimer POC ABG pH POC ABG pCO2 POC ABG pO2 61 L Sodium Potassium Chloride Carbon Dioxide BUN 18 H Creatinine Glucose 119 H POC Glucose Lactic Acid Calcium 8.2 L AST ALT C-Reactive Protein Total Protein Albumin Salicylates 11/29/17 11/29/17 11/29/17 05:29 11:48 17:32 WBC RBC Hgb Hct MCV MCH MCHC RDW Plt Count Lymph % (Auto) [place] % (Auto) Lymph # [place] # Eos # Seg Neutrophils % Seg Neuts % (Manual) Monocytes % (Manual) Nucleated RBC % Seg Neutrophils # Seg Neutrophils # Man Monocytes # (Manual) PT INR D-Dimer POC ABG pH POC ABG pCO2 POC ABG pO2 Sodium Potassium Chloride Carbon Dioxide BUN Creatinine Glucose POC Glucose 128 H 128 H 124 H Lactic Acid Calcium AST ALT C-Reactive Protein Total Protein Albumin Salicylates 11/29/17 11/30/17 11/30/17 17:39 03:48 03:48 WBC 13.5 H RBC Hgb 15.4 H Hct 47.2 H MCV MCH MCHC RDW 16.3 H Plt Count Lymph % (Auto) 10.5 L [place] % (Auto) 7.7 H Lymph # [place] # 1.0 H Eos # 0.5 H Seg Neutrophils % 76.8 H Seg Neuts % (Manual) Monocytes % (Manual) Nucleated RBC % Seg Neutrophils # 10.4 H Seg Neutrophils # Man Monocytes # (Manual) PT INR D-Dimer POC ABG pH POC ABG pCO2 51.6 H POC ABG pO2 345 H Sodium Potassium Chloride Carbon Dioxide BUN Creatinine Glucose 121 H POC Glucose Lactic Acid Calcium 7.6 L AST ALT C-Reactive Protein Total Protein Albumin Salicylates 11/30/17 03:52 WBC RBC Hgb Hct MCV MCH MCHC RDW Plt Count Lymph % (Auto) [place] % (Auto) Lymph # [place] # Eos # Seg Neutrophils % Seg Neuts % (Manual) Monocytes % (Manual) Nucleated RBC % Seg Neutrophils # Seg Neutrophils # Man Monocytes # (Manual) PT INR D-Dimer POC ABG pH 7.503 H POC ABG pCO2 POC ABG pO2 65 L Sodium Potassium Chloride Carbon Dioxide BUN Creatinine Glucose POC Glucose Lactic Acid Calcium AST ALT C-Reactive Protein Total Protein Albumin Salicylates Allied health notes reviewed: nursing
--- NOTE | 2017-11-30 15:43 | Cat Scan Report ---
CT HEAD WITHOUT CONTRAST INDICATION: Assess status of hypoxic injury. COMPARISON: 11/26/[address] FINDINGS: Noncontrast head CT performed with many images repeated for motion,, though limited and demonstrate no gross interval change in poor ugarte-white matter differentiation, partial sulcal effacement and symmetric basal ganglia hypodensities extending along the midbrain/darwin/brainstem and the mesial temporal lobes. No acute hemorrhage or midline shift with slight pseudosubarachnoid hemorrhage sign. Grossly stable posterior fossa as well with poor differentiation. Basilar cisterns preserved. Normal eye globes. A nasogastric tube again courses the left nasal passage. Severe, extensive pansinusitis again noted. Mild bilateral mastoiditis also now seen, left more than right. Atherosclerotic ICA calcifications. Intact calvarium and scalp. Endotracheal tube also again seen. CONCLUSION: Stable hypoxic ischemic injury/global cerebral edema, as detailed above with extensive pansinusitis and supporting devices again seen, as detailed above. Thank you for the opportunity to participate in this patient's care.
--- NOTE | 2017-11-30 16:37 | Progress Note ---
Assessment and Plan Assessment: 1) Sepsis: still high fever. Etiology most likely central fever +/- influenza + /- pneumonia. CRP=13 2) Post-cardiac arrest at home 3) Respiratory failure 6) Presumed LLL pneumonia: ? Aspiration pneumonia. Resp cx + Candace likely a colonizer 7) Encephalopathy / seizures: presumed anoxic brain injury 8) TAMARA 9) COPD 10 ) Elevated LFTs ? from sepsis 11) Alcohol and tobacco abuse Plan: -repeat blood cx and respiratory cultures -continue zosyn day 4 -continue tamiflu day 4 of 5 -check viral hepatitis panel - pending Guarded prognosis Thank you for your consultation, will follow up with you. Kailey Torre MD Infectious Diseases Specialist [facility] [phone] Subjective Date of service: 11/30/17 Principal diagnosis: Acute Hypoxemic Resp Failure; S/P Cardiac Arrest; Acute Encephalopathy Interval history: Remians on the vent fio2 50% p 8, fever 101 no pressors Microbiology: Blood cultures: 11/24 neg 11/29 ngtd Urine cultures: 11/24 ngtd Respiratory cultures: 11/23 Candace labicans Current Antimicrobials: Zosyn 11/23 tamiflu Previous Antimicrobials: Vancomycin 11/23 Objective - Exam Narrative Exam: General appearance: sedated on the vent Eyes: anicteric sclerae, moist conjunctivae; no lid-lag; PERRLA HENT: Atraumatic; oropharynx +ETT Neck: Trachea midline; supple, no thyromegaly or lymphadenopathy Lungs: polo rhonchi and wheezings CV: tachy Abdomen: Soft, non-tender; no masses or hepatosplenomegaly Extremities: mild peripheral edema,+marked polo arm edema Skin: Normal temperature, turgor and texture; no rash, ulcers or subcutaneous nodules Psych: sedated. Neuro: sedated Lines: No CVL / PICC - Constitutional Vitals: Vital Signs Temp Pulse Resp BP Pulse Ox 101 F H 99 H 18 128/62 93 11/30/17 12:00 11/30/17 13:46 11/30/17 13:46 11/30/17 13:46 11/30/17 13:46 Temperature -Last 24 Hours Temperature 101 F Temperature 100.8 F Temperature 99.2 F Temperature 99.2 F Temperature 98.2 F - Labs CBC & Chem 7: 11/30/17 03:48 11/30/17 03:48 Labs: Abnormal lab results 11/29/17 11/29/17 11/29/17 Range/Units 04:36 11:48 17:32 WBC (4.5-11.0) K/mm3 Hgb (10.1-14.3) gm/dl Hct (30.3-42.9) % RDW (13.2-15.2) % Lymph % (Auto) (13.4-35.0) % [place] % (Auto) (0.0-7.3) % [place] # (0.0-0.8) K/mm3 Eos # (0.0-0.4) K/mm3 Seg Neutrophils % (40.0-70.0) % Seg Neutrophils # (1.8-7.7) K/mm3 POC ABG pH (7.35-7.45) POC ABG pCO2 (35-45) POC ABG pO2 61 L (80-105) Glucose (65-100) mg/dL POC Glucose 128 H 124 H (70-105) Calcium (8.4-10.2) mg/dL 11/29/17 11/30/17 11/30/17 Range/Units 17:39 03:48 03:48 WBC 13.5 H (4.5-11.0) K/mm3 Hgb 15.4 H (10.1-14.3) gm/dl Hct 47.2 H (30.3-42.9) % RDW 16.3 H (13.2-15.2) % Lymph % (Auto) 10.5 L (13.4-35.0) % [place] % (Auto) 7.7 H (0.0-7.3) % [place] # 1.0 H (0.0-0.8) K/mm3 Eos # 0.5 H (0.0-0.4) K/mm3 Seg Neutrophils % 76.8 H (40.0-70.0) % Seg Neutrophils # 10.4 H (1.8-7.7) K/mm3 POC ABG pH (7.35-7.45) POC ABG pCO2 51.6 H (35-45) POC ABG pO2 345 H (80-105) Glucose 121 H (65-100) mg/dL POC Glucose (70-105) Calcium 7.6 L (8.4-10.2) mg/dL 11/30/17 Range/Units 03:52 WBC (4.5-11.0) K/mm3 Hgb (10.1-14.3) gm/dl Hct (30.3-42.9) % RDW (13.2-15.2) % Lymph % (Auto) (13.4-35.0) % [place] % (Auto) (0.0-7.3) % [place] # (0.0-0.8) K/mm3 Eos # (0.0-0.4) K/mm3 Seg Neutrophils % (40.0-70.0) % Seg Neutrophils # (1.8-7.7) K/mm3 POC ABG pH 7.503 H (7.35-7.45) POC ABG pCO2 (35-45) POC ABG pO2 65 L (80-105) Glucose (65-100) mg/dL POC Glucose (70-105) Calcium (8.4-10.2) mg/dL
--- NOTE | 2017-11-30 19:03 | Progress Note ---
Assessment and Plan Assessment and plan: S/p cardiopulmonary arrest. Etiology likely secondary to respiratory arrest. - Anoxic encephalopathy; EEG showed no cortical activity - Patient breathing over the vent, Will repeat EEG - Neurology consulted Sepsis. Hypernatremia Possible complex partial seizures with secondary generalization. Acute hypercapneic resp failure. Have discussed with her younger brother, about the prognosis and patient is full code. History Interval history: Patient was seen and evaluated this morning, patient is intubated and on mechanical ventilation, patient is comatose despite off sedation. Hospitalist Physical - Physical exam Narrative exam: Intubated and mechanical ventilation.. The patient appeared well nourished and normally developed. Vital signs as documented. Head exam is unremarkable. No scleral icterus . Neck is without jugular venous distension, thyromegaly, or carotid bruits. Lungs are clear to auscultation. Cardiac exam reveals regular rate and Rhythm. First and second heart sounds normal. No murmurs, rubs or gallops. Abdominal exam reveals normal bowel sounds, no masses, no organomegaly and no aortic enlargement. Extremities are nonedematous and both femoral and pedal pulses are normal. [employer]: Deeply comatose. - Constitutional Vitals: Temp Pulse Resp BP Pulse Ox 101.8 F H 97 H 18 115/58 92 11/30/17 16:00 11/30/17 18:46 11/30/17 18:46 11/30/17 18:46 11/30/17 18:46 General appearance: Present: no acute distress, other (on mech vent, orally intubated) Results - Labs CBC & Chem 7: 11/30/17 03:48 11/30/17 03:48 Labs: Laboratory Last Values WBC 13.5 K/mm3 (4.5-11.0) H 11/30/17 03:48 RBC 4.91 M/mm3 (3.65-5.03) 11/30/17 03:48 Hgb 15.4 gm/dl (10.1-14.3) H 11/30/17 03:48 Hct 47.2 % (30.3-42.9) H 11/30/17 03:48 MCV 96 fl (79-97) 11/30/17 03:48 MCH 31 pg (28-32) 11/30/17 03:48 MCHC 33 % (30-34) 11/30/17 03:48 RDW 16.3 % (13.2-15.2) H 11/30/17 03:48 Plt Count 166 K/mm3 (140-440) D 11/30/17 03:48 Lymph % (Auto) 10.5 % (13.4-35.0) L 11/30/17 03:48 [place] % (Auto) 7.7 % (0.0-7.3) H 11/30/17 03:48 Eos % (Auto) 4.0 % (0.0-4.3) 11/30/17 03:48 Baso % (Auto) 1.0 % (0.0-1.8) 11/30/17 03:48 Lymph # 1.4 K/mm3 (1.2-5.4) 11/30/17 03:48 [place] # 1.0 K/mm3 (0.0-0.8) H 11/30/17 03:48 Eos # 0.5 K/mm3 (0.0-0.4) H 11/30/17 03:48 Baso # 0.1 K/mm3 (0.0-0.1) 11/30/17 03:48 Add Manual Diff Complete 11/23/17 12:44 Total Counted 100 11/23/17 12:44 Seg Neutrophils % 76.8 % (40.0-70.0) H 11/30/17 03:48 Seg Neuts % (Manual) 71.0 % (40.0-70.0) H 11/23/17 12:44 Band Neutrophils % 3.0 % 11/23/17 12:44 Lymphocytes % (Manual) 18.0 % (13.4-35.0) 11/23/17 12:44 Reactive Lymphs % (Man) 0 % 11/23/17 12:44 Monocytes % (Manual) 8.0 % (0.0-7.3) H 11/23/17 12:44 Eosinophils % (Manual) 0 % (0.0-4.3) 11/23/17 12:44 Basophils % (Manual) 0 % (0.0-1.8) 11/23/17 12:44 Metamyelocytes % 0 % 11/23/17 12:44 Myelocytes % 0 % 11/23/17 12:44 Promyelocytes % 0 % 11/23/17 12:44 Blast Cells % 0 % 11/23/17 12:44 Nucleated RBC % 6.0 % (0.0-0.9) H 11/23/17 12:44 Seg Neutrophils # 10.4 K/mm3 (1.8-7.7) H 11/30/17 03:48 Seg Neutrophils # Man 9.2 K/mm3 (1.8-7.7) H 11/23/17 12:44 Band Neutrophils # 0.4 K/mm3 11/23/17 12:44 Lymphocytes # (Manual) 2.3 K/mm3 (1.2-5.4) 11/23/17 12:44 Abs React Lymphs (Man) 0.0 K/mm3 11/23/17 12:44 Monocytes # (Manual) 1.0 K/mm3 (0.0-0.8) H 11/23/17 12:44 Eosinophils # (Manual) 0.0 K/mm3 (0.0-0.4) 11/23/17 12:44 Basophils # (Manual) 0.0 K/mm3 (0.0-0.1) 11/23/17 12:44 Metamyelocytes # 0.0 K/mm3 11/23/17 12:44 Myelocytes # 0.0 K/mm3 11/23/17 12:44 Promyelocytes # 0.0 K/mm3 11/23/17 12:44 Blast Cells # 0.0 K/mm3 11/23/17 12:44 WBC Morphology Not Reportable 11/23/17 12:44 Hypersegmented Neuts Not Reportable 11/23/17 12:44 Hyposegmented Neuts Not Reportable 11/23/17 12:44 Hypogranular Neuts Not Reportable 11/23/17 12:44 Smudge Cells Not Reportable 11/23/17 12:44 Toxic Granulation Not Reportable 11/23/17 12:44 Toxic Vacuolation Not Reportable 11/23/17 12:44 Dohle Bodies Not Reportable 11/23/17 12:44 Pelger-Huet Anomaly Not Reportable 11/23/17 12:44 Erika Rods Not Reportable 11/23/17 12:44 Platelet Estimate Consistent w auto 11/23/17 12:44 Clumped Platelets Not Reportable 11/23/17 12:44 Plt Clumps, EDTA Not Reportable 11/23/17 12:44 Large Platelets Not Reportable 11/23/17 12:44 Giant Platelets Not Reportable 11/23/17 12:44 Platelet Satelliting Not Reportable 11/23/17 12:44 Plt Morphology Comment Not Reportable 11/23/17 12:44 RBC Morphology Not Reportable 11/23/17 12:44 Dimorphic RBCs Not Reportable 11/23/17 12:44 Polychromasia Rare 11/23/17 12:44 Hypochromasia Not Reportable 11/23/17 12:44 Poikilocytosis Not Reportable 11/23/17 12:44 Anisocytosis 1+ 11/23/17 12:44 Microcytosis Not Reportable 11/23/17 12:44 Macrocytosis 1+ 11/23/17 12:44 Spherocytes Not Reportable 11/23/17 12:44 Pappenheimer Bodies Not Reportable 11/23/17 12:44 Sickle Cells Not Reportable 11/23/17 12:44 Target Cells Not Reportable 11/23/17 12:44 Tear Drop Cells Not Reportable 11/23/17 12:44 Ovalocytes Not Reportable 11/23/17 12:44 Helmet Cells Not Reportable 11/23/17 12:44 [place] Bodies Not Reportable 11/23/17 12:44 [place] Rings Not Reportable 11/23/17 12:44 [place] Cells Not Reportable 11/23/17 12:44 Bite Cells Not Reportable 11/23/17 12:44 Crenated Cell Not Reportable 11/23/17 12:44 Elliptocytes Not Reportable 11/23/17 12:44 Acanthocytes (Spur) Not Reportable 11/23/17 12:44 Rouleaux Not Reportable 11/23/17 12:44 Hemoglobin C Crystals Not Reportable 11/23/17 12:44 Schistocytes Not Reportable 11/23/17 12:44 Malaria parasites Not Reportable 11/23/17 12:44 Brett Bodies Not Reportable 11/23/17 12:44 Hem Pathologist Commnt No 11/23/17 12:44 PT 15.3 Sec. (12.2-14.9) H 11/23/17 12:44 INR 1.15 (0.87-1.13) H 11/23/17 12:44 APTT 33.9 Sec. (24.2-36.6) 11/23/17 12:44 D-Dimer 1977.37 ng/mlDDU (0-234) H 11/24/17 14:44 POC ABG pH 7.503 (7.35-7.45) H 11/30/17 03:52 POC ABG pCO2 39.7 (35-45) 11/30/17 03:52 POC ABG pO2 65 (80-105) L 11/30/17 03:52 POC ABG HCO3 31.1 11/30/17 03:52 POC ABG Total CO2 32 11/30/17 03:52 POC ABG O2 Sat 94 11/30/17 03:52 POC ABG Base Excess 8 11/30/17 03:52 FiO2 50 % 11/30/17 03:52 Sodium 143 mmol/L (137-145) 11/30/17 03:48 Potassium 3.7 mmol/L (3.6-5.0) 11/30/17 03:48 Chloride 104.1 mmol/L (98-107) 11/30/17 03:48 Carbon Dioxide 27 mmol/L (22-30) 11/30/17 03:48 Anion Gap 16 mmol/L 11/30/17 03:48 BUN 16 mg/dL (7-17) 11/30/17 03:48 Creatinine 1.2 mg/dL (0.7-1.2) 11/30/17 03:48 Estimated GFR 46 ml/min 11/30/17 03:48 BUN/Creatinine Ratio 13 % 11/30/17 03:48 Glucose 121 mg/dL (65-100) H 11/30/17 03:48 POC Glucose 124 (70-105) H 11/29/17 17:32 Lactic Acid 2.00 mmol/L (0.7-2.0) 11/25/17 10:25 Calcium 7.6 mg/dL (8.4-10.2) L 11/30/17 03:48 Magnesium 1.90 mg/dL (1.7-2.3) 11/28/17 03:17 Total Bilirubin 0.60 mg/dL (0.1-1.2) 11/25/17 03:02 Direct Bilirubin 0.2 mg/dL (0-0.2) 11/25/17 03:02 Indirect Bilirubin 0.4 mg/dL 11/25/17 03:02 AST 300 units/L (5-40) H 11/25/17 03:02 ALT 561 units/L (7-56) H 11/25/17 03:02 Alkaline Phosphatase 54 units/L (35-129) 11/25/17 03:02 Troponin T < 0.010 ng/mL (0.00-0.029) 11/23/17 12:44 C-Reactive Protein 13.70 mg/dL (0.00-1.30) H 11/27/17 16:18 Total Protein 4.5 g/dL (6.3-8.2) L 11/25/17 03:02 Albumin 2.4 g/dL (3.9-5) L 11/25/17 03:02 Albumin/Globulin Ratio 1.1 % 11/25/17 03:02 Urine Color Yellow (Yellow) 11/23/17 13:39 Urine Turbidity Clear (Clear) 11/23/17 13:39 Urine pH 5.0 (5.0-7.0) 11/23/17 13:39 Ur Specific [place] 1.020 (1.003-1.030) 11/23/17 13:39 Urine Protein 30 mg/dl mg/dL (Negative) 11/23/17 13:39 Urine Glucose (UA) Neg mg/dL (Negative) 11/23/17 13:39 Urine Ketones Neg mg/dL (Negative) 11/23/17 13:39 Urine Blood Neg (Negative) 11/23/17 13:39 Urine Nitrite Neg (Negative) 11/23/17 13:39 Urine Bilirubin Neg (Negative) 11/23/17 13:39 Urine Urobilinogen 2.0 mg/dL (<2.0) 11/23/17 13:39 Ur Leukocyte Esterase Neg (Negative) 11/23/17 13:39 Urine WBC (Auto) 5.0 /HPF (0.0-6.0) 11/23/17 13:39 Urine RBC (Auto) 1.0 /HPF (0.0-6.0) 11/23/17 13:39 U Epithel Cells (Auto) 1.0 /HPF (0-13.0) 11/23/17 13:39 Urine Bacteria (Auto) 1+ /HPF (Negative) 11/23/17 13:39 Hyaline Casts 11 /LPF 11/23/17 13:39 Urine Mucus 2+ /HPF 11/23/17 13:39 Salicylates < 0.3 mg/dL (2.8-20.0) L 11/23/17 15:54 Urine Opiates Screen Presumptive positive 11/23/17 13:39 Urine Methadone Screen Presumptive negative 11/23/17 13:39 Acetaminophen < 15.0 ug/mL (10.0-30.0) 11/23/17 15:54 Ur Barbiturates Screen Presumptive negative 11/23/17 13:39 Levetiracetam 30.0 mcg/mL 11/25/17 17:30 Ur Phencyclidine Scrn Presumptive negative 11/23/17 13:39 Ur Amphetamines Screen Presumptive negative 11/23/17 13:39 U Benzodiazepines Scrn Presumptive positive 11/23/17 13:39 Urine Cocaine Screen Presumptive negative 11/23/17 13:39 U Marijuana (THC) Screen Presumptive negative 11/23/17 13:39 Drugs of Abuse Note Disclamer 11/23/17 13:39 Miscellaneous Test Flexitest 1 H 11/28/17 09:23
[2017-11-30] MEDS: KCL 20 MEQ in D5W 1,000 ML IV SCH (23:16)
[2017-12-01] MEDS: D5W IV SCH ×4 (00:23→18:17)
[2017-12-01] MEDS: KEPPRA IV SCH ×4 (00:23→18:17)
[2017-12-01] MEDS: ZOSYN/NS 4.5GM/100ML 4.5 GM/100 ML VIAL IV SCH ×3 (02:17→18:18)
[2017-12-01] MEDS: HEPARIN SUB-Q SCH ×3 (06:02→22:33)
[2017-12-01] MEDS: REGLAN PO SCH ×3 (06:03→22:33)
[2017-12-01] MEDS: DUONEB *Not for PRN Use IH SCH ×3 (07:33→19:24)
--- NOTE | 2017-12-01 08:48 | Event Note ---
Date: 12/01/17 Notified by the RN that the patient is hypotensive. Differentials include septic shock, possible herniation. Ordered vasopressor support. Family to be notified and hospitalist service
[2017-12-01] MEDS ORDERED: LEVOPHED DRIP 4 MG/NS 250 ML 4 MG/250 ML BAG IV SCH (09:00)
[2017-12-01] MEDS: PEPCID IV SCH ×2 (09:12→22:33)
[2017-12-01] MEDS: TAMIFLU PO SCH ×2 (09:53→22:32)
--- NOTE | 2017-12-01 11:31 | Progress Note ---
Assessment and Plan Acute hypoxemic respiratory failure, on mechanical ventilatory support. Status post cardiac arrest. Likely aspiration pneumonia. Acute encephalopathy with myoclonic jerks at this point, but with evidence of brainstem function. Acute exacerbation of chronic obstructive pulmonary disease. Tobacco use disorder. Obesity. Hypertension. History of alcohol abuse - continue full MVS acutely - increased Peep to 8 - continue to wean oxygen for espinoza > 90% - stopped versed and watching for tremors/seizures - Encephalopathy w/up ongoing - stop benadryl for angioedema type tongue swelling (swelling better) - continue GI prophylaxis - continue aspiration precautions / address VAP bundle daily - continue bronchodilators and pulmonary hygiene per RT - continue reglan - continue enteral nutrition - continue GI & VTE prophylaxis - continue empiric AB's and follow C&S - continue other care per attending/ other consultants ...AMS will likely be rate limiting step to extubation; neurology evaluation ongoing; if does not meet brain criteria i will reach out to next of kin re: goals of care in light of obtundation) ....remains critically ill on MVS and at high risk for further deterioration including ..30' CCT Subjective Date of service: 12/01/17 Principal diagnosis: Acute Hypoxemic Resp Failure; S/P Cardiac Arrest; Acute Encephalopathy Interval history: Patient is seen today for: Acute Hypoxemic Resp Failure; S/P Cardiac Arrest; Acute Encephalopathy Seen and examined at bedside; 24hour events reviewed; nursing and respiratory care staff consulted; no adverse overnight events reported to me; reamins on MVS ; AMS is persistent; remains hypoxemic and slowly weaning FiO2; family still deciding on goals of care; no emesis or overt aspiration and tolerating tube feeds better Objective Vital Signs - 12hr 11/30/17 12/01/17 12/01/17 23:46 00:00 00:16 Temperature 101.0 F H Pulse Rate 96 H 96 H 95 H Pulse Rate [ Anterior Bilateral Throughout] Pulse Rate [ Bilateral Radial] Pulse Rate [ From Monitor] Pulse Rate [ Left Dorsalis Pedis] Pulse Rate [ Left Radial] Pulse Rate [ Right Dorsalis Pedis] Pulse Rate [ Right Radial] Respiratory 21 19 18 Rate Respiratory Rate [Anterior Bilateral Throughout] Blood Pressure 124/70 124/70 126/75 O2 Sat by Pulse 93 94 93 Oximetry 12/01/17 12/01/17 12/01/17 00:30 00:46 01:00 Temperature Pulse Rate 95 H 94 H 94 H Pulse Rate [ Anterior Bilateral Throughout] Pulse Rate [ Bilateral Radial] Pulse Rate [ From Monitor] Pulse Rate [ Left Dorsalis Pedis] Pulse Rate [ Left Radial] Pulse Rate [ Right Dorsalis Pedis] Pulse Rate [ Right Radial] Respiratory 20 19 19 Rate Respiratory Rate [Anterior Bilateral Throughout] Blood Pressure 126/75 126/75 126/75 O2 Sat by Pulse 93 93 93 Oximetry 12/01/17 12/01/17 12/01/17 01:16 01:30 01:46 Temperature Pulse Rate 94 H 95 H 95 H Pulse Rate [ Anterior Bilateral Throughout] Pulse Rate [ Bilateral Radial] Pulse Rate [ From Monitor] Pulse Rate [ Left Dorsalis Pedis] Pulse Rate [ Left Radial] Pulse Rate [ Right Dorsalis Pedis] Pulse Rate [ Right Radial] Respiratory 21 18 20 Rate Respiratory Rate [Anterior Bilateral Throughout] Blood Pressure 117/72 117/72 117/72 O2 Sat by Pulse 93 93 94 Oximetry 12/01/17 12/01/17 12/01/17 02:00 02:15 02:31 Temperature Pulse Rate 95 H 93 H 93 H Pulse Rate [ Anterior Bilateral Throughout] Pulse Rate [ Bilateral Radial] Pulse Rate [ From Monitor] Pulse Rate [ Left Dorsalis Pedis] Pulse Rate [ Left Radial] Pulse Rate [ Right Dorsalis Pedis] Pulse Rate [ Right Radial] Respiratory 19 19 19 Rate Respiratory Rate [Anterior Bilateral Throughout] Blood Pressure 117/72 117/72 117/72 O2 Sat by Pulse 94 93 93 Oximetry 12/01/17 12/01/17 12/01/17 02:45 03:01 03:15 Temperature Pulse Rate 93 H 92 H 92 H Pulse Rate [ Anterior Bilateral Throughout] Pulse Rate [ Bilateral Radial] Pulse Rate [ From Monitor] Pulse Rate [ Left Dorsalis Pedis] Pulse Rate [ Left Radial] Pulse Rate [ Right Dorsalis Pedis] Pulse Rate [ Right Radial] Respiratory 19 18 18 Rate Respiratory Rate [Anterior Bilateral Throughout] Blood Pressure 117/72 117/72 147/80 O2 Sat by Pulse 92 93 93 Oximetry 12/01/17 12/01/17 12/01/17 03:31 03:40 03:42 Temperature 100.0 F H Pulse Rate 93 H 92 H Pulse Rate [ Anterior Bilateral Throughout] Pulse Rate [ Bilateral Radial] Pulse Rate [ From Monitor] Pulse Rate [ Left Dorsalis Pedis] Pulse Rate [ Left Radial] Pulse Rate [ Right Dorsalis Pedis] Pulse Rate [ Right Radial] Respiratory 21 Rate Respiratory Rate [Anterior Bilateral Throughout] Blood Pressure 147/80 147/80 O2 Sat by Pulse 94 95 Oximetry 12/01/17 12/01/17 12/01/17 03:45 04:01 04:15 Temperature Pulse Rate 92 H 93 H 94 H Pulse Rate [ Anterior Bilateral Throughout] Pulse Rate [ Bilateral Radial] Pulse Rate [ From Monitor] Pulse Rate [ Left Dorsalis Pedis] Pulse Rate [ Left Radial] Pulse Rate [ Right Dorsalis Pedis] Pulse Rate [ Right Radial] Respiratory 21 19 19 Rate Respiratory Rate [Anterior Bilateral Throughout] Blood Pressure 147/80 149/70 149/70 O2 Sat by Pulse 93 93 92 Oximetry 12/01/17 12/01/17 12/01/17 04:31 04:45 05:01 Temperature Pulse Rate 93 H 94 H 93 H Pulse Rate [ Anterior Bilateral Throughout] Pulse Rate [ Bilateral Radial] Pulse Rate [ From Monitor] Pulse Rate [ Left Dorsalis Pedis] Pulse Rate [ Left Radial] Pulse Rate [ Right Dorsalis Pedis] Pulse Rate [ Right Radial] Respiratory 18 18 19 Rate Respiratory Rate [Anterior Bilateral Throughout] Blood Pressure 149/70 149/70 168/68 O2 Sat by Pulse 93 93 94 Oximetry 12/01/17 12/01/17 12/01/17 05:15 05:31 05:45 Temperature Pulse Rate 94 H 95 H 93 H Pulse Rate [ Anterior Bilateral Throughout] Pulse Rate [ Bilateral Radial] Pulse Rate [ From Monitor] Pulse Rate [ Left Dorsalis Pedis] Pulse Rate [ Left Radial] Pulse Rate [ Right Dorsalis Pedis] Pulse Rate [ Right Radial] Respiratory 20 17 19 Rate Respiratory Rate [Anterior Bilateral Throughout] Blood Pressure 168/68 168/68 168/68 O2 Sat by Pulse 94 94 94 Oximetry 12/01/17 12/01/17 12/01/17 06:01 06:15 06:31 Temperature Pulse Rate 93 H 93 H 95 H Pulse Rate [ Anterior Bilateral Throughout] Pulse Rate [ Bilateral Radial] Pulse Rate [ From Monitor] Pulse Rate [ Left Dorsalis Pedis] Pulse Rate [ Left Radial] Pulse Rate [ Right Dorsalis Pedis] Pulse Rate [ Right Radial] Respiratory 19 19 18 Rate Respiratory Rate [Anterior Bilateral Throughout] Blood Pressure 149/65 149/65 149/65 O2 Sat by Pulse 94 94 94 Oximetry 12/01/17 12/01/17 12/01/17 06:45 07:00 07:15 Temperature Pulse Rate 96 H 93 H 93 H Pulse Rate [ Anterior Bilateral Throughout] Pulse Rate [ Bilateral Radial] Pulse Rate [ From Monitor] Pulse Rate [ Left Dorsalis Pedis] Pulse Rate [ Left Radial] Pulse Rate [ Right Dorsalis Pedis] Pulse Rate [ Right Radial] Respiratory 18 18 19 Rate Respiratory Rate [Anterior Bilateral Throughout] Blood Pressure 149/65 162/69 162/69 O2 Sat by Pulse 93 94 93 Oximetry 12/01/17 12/01/17 12/01/17 07:31 07:33 07:45 Temperature Pulse Rate 94 H 93 H 94 H Pulse Rate [ 94 H Anterior Bilateral Throughout] Pulse Rate [ Bilateral Radial] Pulse Rate [ From Monitor] Pulse Rate [ Left Dorsalis Pedis] Pulse Rate [ Left Radial] Pulse Rate [ Right Dorsalis Pedis] Pulse Rate [ Right Radial] Respiratory 18 18 Rate Respiratory 18 Rate [Anterior Bilateral Throughout] Blood Pressure 162/69 162/69 162/69 O2 Sat by Pulse 94 93 96 Oximetry 12/01/17 12/01/17 12/01/17 08:00 08:01 08:15 Temperature 100.6 F H Pulse Rate 93 H 94 H Pulse Rate [ Anterior Bilateral Throughout] Pulse Rate [ 94 H Bilateral Radial] Pulse Rate [ 92 H From Monitor] Pulse Rate [ 92 H Left Dorsalis Pedis] Pulse Rate [ 92 H Left Radial] Pulse Rate [ 92 H Right Dorsalis Pedis] Pulse Rate [ 92 H Right Radial] Respiratory 18 18 18 Rate Respiratory Rate [Anterior Bilateral Throughout] Blood Pressure 81/51 85/52 81/51 O2 Sat by Pulse 92 89 91 Oximetry 12/01/17 12/01/17 12/01/17 08:30 08:45 09:01 Temperature Pulse Rate 96 H 90 90 Pulse Rate [ Anterior Bilateral Throughout] Pulse Rate [ Bilateral Radial] Pulse Rate [ From Monitor] Pulse Rate [ Left Dorsalis Pedis] Pulse Rate [ Left Radial] Pulse Rate [ Right Dorsalis Pedis] Pulse Rate [ Right Radial] Respiratory 18 18 18 Rate Respiratory Rate [Anterior Bilateral Throughout] Blood Pressure 93/59 97/59 102/69 O2 Sat by Pulse 91 92 93 Oximetry 12/01/17 12/01/17 12/01/17 09:15 09:31 09:45 Temperature Pulse Rate 88 86 87 Pulse Rate [ Anterior Bilateral Throughout] Pulse Rate [ Bilateral Radial] Pulse Rate [ From Monitor] Pulse Rate [ Left Dorsalis Pedis] Pulse Rate [ Left Radial] Pulse Rate [ Right Dorsalis Pedis] Pulse Rate [ Right Radial] Respiratory 18 18 18 Rate Respiratory Rate [Anterior Bilateral Throughout] Blood Pressure 158/64 158/64 158/64 O2 Sat by Pulse 96 96 96 Oximetry 12/01/17 12/01/17 12/01/17 10:00 10:15 10:30 Temperature Pulse Rate 87 85 84 Pulse Rate [ Anterior Bilateral Throughout] Pulse Rate [ Bilateral Radial] Pulse Rate [ From Monitor] Pulse Rate [ Left Dorsalis Pedis] Pulse Rate [ Left Radial] Pulse Rate [ Right Dorsalis Pedis] Pulse Rate [ Right Radial] Respiratory 18 18 18 Rate Respiratory Rate [Anterior Bilateral Throughout] Blood Pressure 113/57 113/57 120/57 O2 Sat by Pulse 95 95 94 Oximetry 12/01/17 12/01/17 12/01/17 10:45 11:00 11:15 Temperature Pulse Rate 86 84 86 Pulse Rate [ Anterior Bilateral Throughout] Pulse Rate [ Bilateral Radial] Pulse Rate [ From Monitor] Pulse Rate [ Left Dorsalis Pedis] Pulse Rate [ Left Radial] Pulse Rate [ Right Dorsalis Pedis] Pulse Rate [ Right Radial] Respiratory 18 18 18 Rate Respiratory Rate [Anterior Bilateral Throughout] Blood Pressure 120/57 134/65 134/65 O2 Sat by Pulse 94 94 99 Oximetry Constitutional: appears uncomfortable, other (obtunded) Eyes: non-icteric ENT: oropharynx moist Neck: supple, no lymphadenopathy, no JVD, other (no thyromegaly) Effort: mildly labored Ascultation: Bilateral: diminished breath sounds, rhonchi Percussion: Bilateral: not dull Cardiovascular: regular rate and rhythm, other (no rubs or murmurs) Gastrointestinal: hypoactive bowel sounds, soft, non-tender, non-distended, other (no palapble HSM) Integumentary: normal Extremities: no cyanosis, pink and warm, pulses normal, edema Neurologic: pupils equal and round, unable to assess Psychiatric: other (unable to assess) CBC and BMP: 12/03/17 20:02 11/30/17 03:48 ABG, PT/INR, D-dimer: ABG POC ABG pH 7.394 (7.35-7.45) 12/01/17 03:17 POC ABG pCO2 52.7 (35-45) H 12/01/17 03:17 POC ABG pO2 64 (80-105) L 12/01/17 03:17 POC ABG HCO3 32.2 12/01/17 03:17 POC ABG Total CO2 34 12/01/17 03:17 POC ABG O2 Sat 92 12/01/17 03:17 PT/INR, D-dimer PT 15.3 Sec. (12.2-14.9) H 11/23/17 12:44 INR 1.15 (0.87-1.13) H 11/23/17 12:44 D-Dimer 1977.37 ng/mlDDU (0-234) H 11/24/17 14:44 Abnormal lab findings: Abnormal Labs 11/23/17 11/23/17 11/23/17 12:44 12:44 12:44 WBC 13.0 H RBC Hgb Hct 46.1 H MCV 112 H MCH 33 H MCHC 29 L RDW 18.5 H Plt Count Lymph % (Auto) [place] % (Auto) Lymph # [place] # Eos # Seg Neutrophils % Seg Neuts % (Manual) 71.0 H Monocytes % (Manual) 8.0 H Nucleated RBC % 6.0 H Seg Neutrophils # Seg Neutrophils # Man 9.2 H Monocytes # (Manual) 1.0 H PT 15.3 H INR 1.15 H D-Dimer POC ABG pH POC ABG pCO2 POC ABG pO2 Sodium Potassium 5.4 H Chloride 85.2 L Carbon Dioxide BUN 19 H Creatinine 1.3 H Glucose 175 H POC Glucose Lactic Acid Calcium AST 310 H ALT 262 H C-Reactive Protein Total Protein 5.7 L Albumin 2.9 L Salicylates Miscellaneous Test 11/23/17 11/23/17 11/23/17 12:44 13:23 15:54 WBC RBC Hgb Hct MCV MCH MCHC RDW Plt Count Lymph % (Auto) [place] % (Auto) Lymph # [place] # Eos # Seg Neutrophils % Seg Neuts % (Manual) Monocytes % (Manual) Nucleated RBC % Seg Neutrophils # Seg Neutrophils # Man Monocytes # (Manual) PT INR D-Dimer POC ABG pH 7.035 L POC ABG pCO2 99.1 H POC ABG pO2 343 H Sodium Potassium Chloride Carbon Dioxide BUN Creatinine Glucose POC Glucose Lactic Acid 16.10 H* Calcium AST ALT C-Reactive Protein Total Protein Albumin Salicylates < 0.3 L Miscellaneous Test 11/23/17 11/24/17 11/24/17 16:42 04:03 04:03 WBC 16.8 H RBC Hgb 15.7 H Hct 48.9 H MCV 101 H MCH MCHC RDW 16.5 H Plt Count Lymph % (Auto) 5.2 L [place] % (Auto) Lymph # 0.9 L [place] # 0.9 H Eos # Seg Neutrophils % 89.1 H Seg Neuts % (Manual) Monocytes % (Manual) Nucleated RBC % Seg Neutrophils # 14.9 H Seg Neutrophils # Man Monocytes # (Manual) PT INR D-Dimer POC ABG pH POC ABG pCO2 POC ABG pO2 55 L Sodium Potassium Chloride 96.0 L Carbon Dioxide 33 H D BUN 28 H Creatinine 1.5 H Glucose 108 H POC Glucose Lactic Acid Calcium 7.7 L AST 1091 H ALT 986 H C-Reactive Protein Total Protein 5.0 L Albumin 2.8 L Salicylates Miscellaneous Test 11/24/17 11/24/17 11/24/17 05:55 13:29 13:29 WBC RBC Hgb Hct MCV MCH MCHC RDW Plt Count Lymph % (Auto) [place] % (Auto) Lymph # [place] # Eos # Seg Neutrophils % Seg Neuts % (Manual) Monocytes % (Manual) Nucleated RBC % Seg Neutrophils # Seg Neutrophils # Man Monocytes # (Manual) PT INR D-Dimer POC ABG pH 7.469 H POC ABG pCO2 52.3 H POC ABG pO2 69 L Sodium Potassium Chloride Carbon Dioxide BUN Creatinine Glucose POC Glucose Lactic Acid 3.20 H* Calcium AST ALT C-Reactive Protein 9.20 H Total Protein Albumin Salicylates Miscellaneous Test 11/24/17 11/24/17 11/25/17 14:44 20:55 01:55 WBC RBC Hgb Hct MCV MCH MCHC RDW Plt Count Lymph % (Auto) [place] % (Auto) Lymph # [place] # Eos # Seg Neutrophils % Seg Neuts % (Manual) Monocytes % (Manual) Nucleated RBC % Seg Neutrophils # Seg Neutrophils # Man Monocytes # (Manual) PT INR D-Dimer 1977.37 H POC ABG pH 7.471 H POC ABG pCO2 56.2 H POC ABG pO2 Sodium Potassium Chloride Carbon Dioxide BUN Creatinine Glucose POC Glucose Lactic Acid 3.00 H* Calcium AST ALT C-Reactive Protein Total Protein Albumin Salicylates Miscellaneous Test 11/25/17 11/25/17 11/25/17 03:02 03:02 03:02 WBC 16.0 H RBC Hgb Hct MCV 99 H MCH MCHC RDW 16.0 H Plt Count Lymph % (Auto) 11.6 L [place] % (Auto) Lymph # [place] # 1.0 H Eos # Seg Neutrophils % 81.8 H Seg Neuts % (Manual) Monocytes % (Manual) Nucleated RBC % Seg Neutrophils # 13.1 H Seg Neutrophils # Man Monocytes # (Manual) PT INR D-Dimer POC ABG pH POC ABG pCO2 POC ABG pO2 Sodium 148 H Potassium Chloride Carbon Dioxide 35 H BUN 30 H Creatinine 1.9 H Glucose 106 H POC Glucose Lactic Acid 2.90 H* Calcium 7.0 L AST ALT C-Reactive Protein Total Protein Albumin Salicylates Miscellaneous Test 11/25/17 11/25/17 11/25/17 03:02 03:35 07:15 WBC RBC Hgb Hct MCV MCH MCHC RDW Plt Count Lymph % (Auto) [place] % (Auto) Lymph # [place] # Eos # Seg Neutrophils % Seg Neuts % (Manual) Monocytes % (Manual) Nucleated RBC % Seg Neutrophils # Seg Neutrophils # Man Monocytes # (Manual) PT INR D-Dimer POC ABG pH 7.494 H POC ABG pCO2 48.1 H POC ABG pO2 Sodium Potassium Chloride Carbon Dioxide BUN Creatinine Glucose POC Glucose Lactic Acid 2.30 H* Calcium AST 300 H ALT 561 H C-Reactive Protein Total Protein 4.5 L Albumin 2.4 L Salicylates Miscellaneous Test 11/26/17 11/26/17 11/26/17 03:26 03:26 03:52 WBC 12.7 H RBC Hgb 14.9 H Hct 45.9 H MCV 98 H MCH MCHC RDW 16.3 H Plt Count 137 L Lymph % (Auto) 10.0 L [place] % (Auto) Lymph # [place] # Eos # Seg Neutrophils % 82.7 H Seg Neuts % (Manual) Monocytes % (Manual) Nucleated RBC % Seg Neutrophils # 10.5 H Seg Neutrophils # Man Monocytes # (Manual) PT INR D-Dimer POC ABG pH 7.475 H POC ABG pCO2 POC ABG pO2 71 L Sodium 150 H Potassium 3.3 L Chloride Carbon Dioxide BUN 22 H Creatinine 1.7 H Glucose 107 H POC Glucose Lactic Acid Calcium 7.5 L AST ALT C-Reactive Protein Total Protein Albumin Salicylates Miscellaneous Test 11/26/17 11/26/17 11/26/17 11:49 17:53 23:56 WBC RBC Hgb Hct MCV MCH MCHC RDW Plt Count Lymph % (Auto) [place] % (Auto) Lymph # [place] # Eos # Seg Neutrophils % Seg Neuts % (Manual) Monocytes % (Manual) Nucleated RBC % Seg Neutrophils # Seg Neutrophils # Man Monocytes # (Manual) PT INR D-Dimer POC ABG pH POC ABG pCO2 POC ABG pO2 Sodium Potassium Chloride Carbon Dioxide BUN Creatinine Glucose POC Glucose 109 H 168 H 145 H Lactic Acid Calcium AST ALT C-Reactive Protein Total Protein Albumin Salicylates Miscellaneous Test 11/27/17 11/27/17 11/27/17 04:22 04:22 04:53 WBC 11.7 H RBC Hgb 15.7 H Hct 49.8 H MCV 100 H MCH MCHC RDW 16.4 H Plt Count 105 L Lymph % (Auto) 7.6 L [place] % (Auto) 8.7 H Lymph # 0.9 L [place] # 1.0 H Eos # Seg Neutrophils % 83.2 H Seg Neuts % (Manual) Monocytes % (Manual) Nucleated RBC % Seg Neutrophils # 9.7 H Seg Neutrophils # Man Monocytes # (Manual) PT INR D-Dimer POC ABG pH POC ABG pCO2 53.1 H POC ABG pO2 70 L Sodium 155 H Potassium Chloride 113.1 H Carbon Dioxide BUN Creatinine 1.5 H Glucose 128 H POC Glucose Lactic Acid Calcium 7.4 L AST ALT C-Reactive Protein Total Protein Albumin Salicylates Miscellaneous Test 11/27/17 11/27/17 11/27/17 05:34 11:27 16:18 WBC RBC Hgb Hct MCV MCH MCHC RDW Plt Count Lymph % (Auto) [place] % (Auto) Lymph # [place] # Eos # Seg Neutrophils % Seg Neuts % (Manual) Monocytes % (Manual) Nucleated RBC % Seg Neutrophils # Seg Neutrophils # Man Monocytes # (Manual) PT INR D-Dimer POC ABG pH POC ABG pCO2 POC ABG pO2 Sodium Potassium Chloride Carbon Dioxide BUN Creatinine Glucose POC Glucose 120 H 129 H Lactic Acid Calcium AST ALT C-Reactive Protein 13.70 H Total Protein Albumin Salicylates Miscellaneous Test 11/27/17 11/27/17 11/28/17 17:19 23:56 03:17 WBC 14.5 H RBC Hgb 15.2 H Hct 48.3 H MCV 99 H MCH MCHC RDW 16.5 H Plt Count 108 L Lymph % (Auto) 9.7 L [place] % (Auto) Lymph # [place] # 1.0 H Eos # Seg Neutrophils % 81.0 H Seg Neuts % (Manual) Monocytes % (Manual) Nucleated RBC % Seg Neutrophils # 11.8 H Seg Neutrophils # Man Monocytes # (Manual) PT INR D-Dimer POC ABG pH POC ABG pCO2 POC ABG pO2 Sodium Potassium Chloride Carbon Dioxide BUN Creatinine Glucose POC Glucose 138 H 125 H Lactic Acid Calcium AST ALT C-Reactive Protein Total Protein Albumin Salicylates Miscellaneous Test 11/28/17 11/28/17 11/28/17 03:17 05:34 06:46 WBC RBC Hgb Hct MCV MCH MCHC RDW Plt Count Lymph % (Auto) [place] % (Auto) Lymph # [place] # Eos # Seg Neutrophils % Seg Neuts % (Manual) Monocytes % (Manual) Nucleated RBC % Seg Neutrophils # Seg Neutrophils # Man Monocytes # (Manual) PT INR D-Dimer POC ABG pH 7.324 L POC ABG pCO2 63.4 H POC ABG pO2 65 L Sodium 150 H Potassium 3.4 L Chloride 107.9 H Carbon Dioxide 31 H BUN 19 H Creatinine 1.3 H Glucose 126 H POC Glucose 132 H Lactic Acid Calcium 7.7 L AST ALT C-Reactive Protein Total Protein Albumin Salicylates Miscellaneous Test 11/28/17 11/28/17 11/28/17 09:23 12:17 17:20 WBC RBC Hgb Hct MCV MCH MCHC RDW Plt Count Lymph % (Auto) [place] % (Auto) Lymph # [place] # Eos # Seg Neutrophils % Seg Neuts % (Manual) Monocytes % (Manual) Nucleated RBC % Seg Neutrophils # Seg Neutrophils # Man Monocytes # (Manual) PT INR D-Dimer POC ABG pH POC ABG pCO2 POC ABG pO2 Sodium Potassium Chloride Carbon Dioxide BUN Creatinine Glucose POC Glucose 142 H 136 H Lactic Acid Calcium AST ALT C-Reactive Protein Total Protein Albumin Salicylates Miscellaneous Test Flexitest 1 H 11/29/17 11/29/17 11/29/17 00:12 04:36 04:47 WBC 14.1 H RBC 5.32 H Hgb 16.4 H Hct 51.2 H MCV MCH MCHC RDW 15.8 H Plt Count 77 L Lymph % (Auto) 7.6 L [place] % (Auto) Lymph # 1.1 L [place] # 0.9 H Eos # 0.5 H Seg Neutrophils % 81.5 H Seg Neuts % (Manual) Monocytes % (Manual) Nucleated RBC % Seg Neutrophils # 11.5 H Seg Neutrophils # Man Monocytes # (Manual) PT INR D-Dimer POC ABG pH POC ABG pCO2 POC ABG pO2 61 L Sodium Potassium Chloride Carbon Dioxide BUN Creatinine Glucose POC Glucose 119 H Lactic Acid Calcium AST ALT C-Reactive Protein Total Protein Albumin Salicylates Miscellaneous Test 11/29/17 11/29/17 11/29/17 04:47 05:29 11:48 WBC RBC Hgb Hct MCV MCH MCHC RDW Plt Count Lymph % (Auto) [place] % (Auto) Lymph # [place] # Eos # Seg Neutrophils % Seg Neuts % (Manual) Monocytes % (Manual) Nucleated RBC % Seg Neutrophils # Seg Neutrophils # Man Monocytes # (Manual) PT INR D-Dimer POC ABG pH POC ABG pCO2 POC ABG pO2 Sodium Potassium Chloride Carbon Dioxide BUN 18 H Creatinine Glucose 119 H POC Glucose 128 H 128 H Lactic Acid Calcium 8.2 L AST ALT C-Reactive Protein Total Protein Albumin Salicylates Miscellaneous Test 11/29/17 11/29/17 11/30/17 17:32 17:39 03:48 WBC 13.5 H RBC Hgb 15.4 H Hct 47.2 H MCV MCH MCHC RDW 16.3 H Plt Count Lymph % (Auto) 10.5 L [place] % (Auto) 7.7 H Lymph # [place] # 1.0 H Eos # 0.5 H Seg Neutrophils % 76.8 H Seg Neuts % (Manual) Monocytes % (Manual) Nucleated RBC % Seg Neutrophils # 10.4 H Seg Neutrophils # Man Monocytes # (Manual) PT INR D-Dimer POC ABG pH POC ABG pCO2 51.6 H POC ABG pO2 345 H Sodium Potassium Chloride Carbon Dioxide BUN Creatinine Glucose POC Glucose 124 H Lactic Acid Calcium AST ALT C-Reactive Protein Total Protein Albumin Salicylates Miscellaneous Test 11/30/17 11/30/17 11/30/17 03:48 03:52 23:37 WBC RBC Hgb Hct MCV MCH MCHC RDW Plt Count Lymph % (Auto) [place] % (Auto) Lymph # [place] # Eos # Seg Neutrophils % Seg Neuts % (Manual) Monocytes % (Manual) Nucleated RBC % Seg Neutrophils # Seg Neutrophils # Man Monocytes # (Manual) PT INR D-Dimer POC ABG pH 7.503 H POC ABG pCO2 POC ABG pO2 65 L Sodium Potassium Chloride Carbon Dioxide BUN Creatinine Glucose 121 H POC Glucose 140 H Lactic Acid Calcium 7.6 L AST ALT C-Reactive Protein Total Protein Albumin Salicylates Miscellaneous Test 12/01/17 12/01/17 03:17 05:30 WBC RBC Hgb Hct MCV MCH MCHC RDW Plt Count Lymph % (Auto) [place] % (Auto) Lymph # [place] # Eos # Seg Neutrophils % Seg Neuts % (Manual) Monocytes % (Manual) Nucleated RBC % Seg Neutrophils # Seg Neutrophils # Man Monocytes # (Manual) PT INR D-Dimer POC ABG pH POC ABG pCO2 52.7 H POC ABG pO2 64 L Sodium Potassium Chloride Carbon Dioxide BUN Creatinine Glucose POC Glucose 171 H Lactic Acid Calcium AST ALT C-Reactive Protein Total Protein Albumin Salicylates Miscellaneous Test Chest x-ray: image reviewed Allied health notes reviewed: nursing
--- NOTE | 2017-12-01 15:47 | Magnetic Resonance Report ---
MRI OF THE BRAIN WITHOUT CONTRAST: HISTORY: Seizures, anoxic injury PROCEDURE: Multiplanar, multisequence MR imaging of the brain without IV contrast was performed. FINDINGS: Compared to the CT head performed 11/23/17. MRI demonstrates diffusion restriction involving the bilateral thalami, bilateral globus pallidus, bilateral hippocampi, splenium of the corpus callosum, cerebellum, and cortex of the posterior frontal and parietal lobes. There is mild edema in these areas on the T2 weighted images. This is consistent with diffuse anoxic injury. There is no evidence for hemorrhage. No herniation is appreciated. The ventricles remain normal size. A left nasal tube is in place. All paranasal sinuses are occluded. IMPRESSION: MRI demonstrates anoxic brain injury as outlined above.
--- NOTE | 2017-12-01 18:38 | Progress Note ---
Assessment and Plan Assessment and plan: S/p cardiopulmonary arrest. Etiology likely secondary to respiratory arrest. - Anoxic encephalopathy; EEG showed no cortical activity - Patient breathing over the vent, Will repeat EEG - Neurology consulted Sepsis. Hypernatremia Possible complex partial seizures with secondary generalization. Acute hypercapneic resp failure. Have discussed with her younger brother, about the prognosis and patient is full code. History Interval history: Patient was seen and evaluated this morning, patient is intubated and on mechanical ventilation, patient is comatose despite off sedation. Hospitalist Physical - Physical exam Narrative exam: Intubated and mechanical ventilation.. The patient appeared well nourished and normally developed. Vital signs as documented. Head exam is unremarkable. No scleral icterus . Neck is without jugular venous distension, thyromegaly, or carotid bruits. Lungs are clear to auscultation. Cardiac exam reveals regular rate and Rhythm. First and second heart sounds normal. No murmurs, rubs or gallops. Abdominal exam reveals normal bowel sounds, no masses, no organomegaly and no aortic enlargement. Extremities are nonedematous and both femoral and pedal pulses are normal. [employer]: Deeply comatose. - Constitutional Vitals: Temp Pulse Resp BP Pulse Ox 100.9 F H 88 18 148/69 95 12/01/17 16:00 12/01/17 18:01 12/01/17 18:01 12/01/17 18:01 12/01/17 18:01 General appearance: Present: no acute distress, other (on mech vent, orally intubated) Results - Labs CBC & Chem 7: 11/30/17 03:48 11/30/17 03:48 Labs: Laboratory Last Values WBC 13.5 K/mm3 (4.5-11.0) H 11/30/17 03:48 RBC 4.91 M/mm3 (3.65-5.03) 11/30/17 03:48 Hgb 15.4 gm/dl (10.1-14.3) H 11/30/17 03:48 Hct 47.2 % (30.3-42.9) H 11/30/17 03:48 MCV 96 fl (79-97) 11/30/17 03:48 MCH 31 pg (28-32) 11/30/17 03:48 MCHC 33 % (30-34) 11/30/17 03:48 RDW 16.3 % (13.2-15.2) H 11/30/17 03:48 Plt Count 166 K/mm3 (140-440) D 11/30/17 03:48 Lymph % (Auto) 10.5 % (13.4-35.0) L 11/30/17 03:48 [place] % (Auto) 7.7 % (0.0-7.3) H 11/30/17 03:48 Eos % (Auto) 4.0 % (0.0-4.3) 11/30/17 03:48 Baso % (Auto) 1.0 % (0.0-1.8) 11/30/17 03:48 Lymph # 1.4 K/mm3 (1.2-5.4) 11/30/17 03:48 Tyler # 1.0 K/mm3 (0.0-0.8) H 11/30/17 03:48 Eos # 0.5 K/mm3 (0.0-0.4) H 11/30/17 03:48 Baso # 0.1 K/mm3 (0.0-0.1) 11/30/17 03:48 Add Manual Diff Complete 11/23/17 12:44 Total Counted 100 11/23/17 12:44 Seg Neutrophils % 76.8 % (40.0-70.0) H 11/30/17 03:48 Seg Neuts % (Manual) 71.0 % (40.0-70.0) H 11/23/17 12:44 Band Neutrophils % 3.0 % 11/23/17 12:44 Lymphocytes % (Manual) 18.0 % (13.4-35.0) 11/23/17 12:44 Reactive Lymphs % (Man) 0 % 11/23/17 12:44 Monocytes % (Manual) 8.0 % (0.0-7.3) H 11/23/17 12:44 Eosinophils % (Manual) 0 % (0.0-4.3) 11/23/17 12:44 Basophils % (Manual) 0 % (0.0-1.8) 11/23/17 12:44 Metamyelocytes % 0 % 11/23/17 12:44 Myelocytes % 0 % 11/23/17 12:44 Promyelocytes % 0 % 11/23/17 12:44 Blast Cells % 0 % 11/23/17 12:44 Nucleated RBC % 6.0 % (0.0-0.9) H 11/23/17 12:44 Seg Neutrophils # 10.4 K/mm3 (1.8-7.7) H 11/30/17 03:48 Seg Neutrophils # Man 9.2 K/mm3 (1.8-7.7) H 11/23/17 12:44 Band Neutrophils # 0.4 K/mm3 11/23/17 12:44 Lymphocytes # (Manual) 2.3 K/mm3 (1.2-5.4) 11/23/17 12:44 Abs React Lymphs (Man) 0.0 K/mm3 11/23/17 12:44 Monocytes # (Manual) 1.0 K/mm3 (0.0-0.8) H 11/23/17 12:44 Eosinophils # (Manual) 0.0 K/mm3 (0.0-0.4) 11/23/17 12:44 Basophils # (Manual) 0.0 K/mm3 (0.0-0.1) 11/23/17 12:44 Metamyelocytes # 0.0 K/mm3 11/23/17 12:44 Myelocytes # 0.0 K/mm3 11/23/17 12:44 Promyelocytes # 0.0 K/mm3 11/23/17 12:44 Blast Cells # 0.0 K/mm3 11/23/17 12:44 WBC Morphology Not Reportable 11/23/17 12:44 Hypersegmented Neuts Not Reportable 11/23/17 12:44 Hyposegmented Neuts Not Reportable 11/23/17 12:44 Hypogranular Neuts Not Reportable 11/23/17 12:44 Smudge Cells Not Reportable 11/23/17 12:44 Toxic Granulation Not Reportable 11/23/17 12:44 Toxic Vacuolation Not Reportable 11/23/17 12:44 Dohle Bodies Not Reportable 11/23/17 12:44 Pelger-Huet Anomaly Not Reportable 11/23/17 12:44 Erika Rods Not Reportable 11/23/17 12:44 Platelet Estimate Consistent w auto 11/23/17 12:44 Clumped Platelets Not Reportable 11/23/17 12:44 Plt Clumps, EDTA Not Reportable 11/23/17 12:44 Large Platelets Not Reportable 11/23/17 12:44 Giant Platelets Not Reportable 11/23/17 12:44 Platelet Satelliting Not Reportable 11/23/17 12:44 Plt Morphology Comment Not Reportable 11/23/17 12:44 RBC Morphology Not Reportable 11/23/17 12:44 Dimorphic RBCs Not Reportable 11/23/17 12:44 Polychromasia Rare 11/23/17 12:44 Hypochromasia Not Reportable 11/23/17 12:44 Poikilocytosis Not Reportable 11/23/17 12:44 Anisocytosis 1+ 11/23/17 12:44 Microcytosis Not Reportable 11/23/17 12:44 Macrocytosis 1+ 11/23/17 12:44 Spherocytes Not Reportable 11/23/17 12:44 Pappenheimer Bodies Not Reportable 11/23/17 12:44 Sickle Cells Not Reportable 11/23/17 12:44 Target Cells Not Reportable 11/23/17 12:44 Tear Drop Cells Not Reportable 11/23/17 12:44 Ovalocytes Not Reportable 11/23/17 12:44 Helmet Cells Not Reportable 11/23/17 12:44 [place] Bodies Not Reportable 11/23/17 12:44 [place] Rings Not Reportable 11/23/17 12:44 Valentino Cells Not Reportable 11/23/17 12:44 Bite Cells Not Reportable 11/23/17 12:44 Crenated Cell Not Reportable 11/23/17 12:44 Elliptocytes Not Reportable 11/23/17 12:44 Acanthocytes (Spur) Not Reportable 11/23/17 12:44 Rouleaux Not Reportable 11/23/17 12:44 Hemoglobin C Crystals Not Reportable 11/23/17 12:44 Schistocytes Not Reportable 11/23/17 12:44 Malaria parasites Not Reportable 11/23/17 12:44 Brett Bodies Not Reportable 11/23/17 12:44 Hem Pathologist Commnt No 11/23/17 12:44 PT 15.3 Sec. (12.2-14.9) H 11/23/17 12:44 INR 1.15 (0.87-1.13) H 11/23/17 12:44 APTT 33.9 Sec. (24.2-36.6) 11/23/17 12:44 D-Dimer 1977.37 ng/mlDDU (0-234) H 11/24/17 14:44 POC ABG pH 7.394 (7.35-7.45) 12/01/17 03:17 POC ABG pCO2 52.7 (35-45) H 12/01/17 03:17 POC ABG pO2 64 (80-105) L 12/01/17 03:17 POC ABG HCO3 32.2 12/01/17 03:17 POC ABG Total CO2 34 12/01/17 03:17 POC ABG O2 Sat 92 12/01/17 03:17 POC ABG Base Excess 7 12/01/17 03:17 FiO2 50 % 12/01/17 03:17 Sodium 143 mmol/L (137-145) 11/30/17 03:48 Potassium 3.7 mmol/L (3.6-5.0) 11/30/17 03:48 Chloride 104.1 mmol/L (98-107) 11/30/17 03:48 Carbon Dioxide 27 mmol/L (22-30) 11/30/17 03:48 Anion Gap 16 mmol/L 11/30/17 03:48 BUN 16 mg/dL (7-17) 11/30/17 03:48 Creatinine 1.2 mg/dL (0.7-1.2) 11/30/17 03:48 Estimated GFR 46 ml/min 11/30/17 03:48 BUN/Creatinine Ratio 13 % 11/30/17 03:48 Glucose 121 mg/dL (65-100) H 11/30/17 03:48 POC Glucose 175 (70-105) H 12/01/17 12:37 Lactic Acid 2.00 mmol/L (0.7-2.0) 11/25/17 10:25 Calcium 7.6 mg/dL (8.4-10.2) L 11/30/17 03:48 Magnesium 1.90 mg/dL (1.7-2.3) 11/28/17 03:17 Total Bilirubin 0.60 mg/dL (0.1-1.2) 11/25/17 03:02 Direct Bilirubin 0.2 mg/dL (0-0.2) 11/25/17 03:02 Indirect Bilirubin 0.4 mg/dL 11/25/17 03:02 AST 300 units/L (5-40) H 11/25/17 03:02 ALT 561 units/L (7-56) H 11/25/17 03:02 Alkaline Phosphatase 54 units/L (35-129) 11/25/17 03:02 Troponin T < 0.010 ng/mL (0.00-0.029) 11/23/17 12:44 C-Reactive Protein 13.70 mg/dL (0.00-1.30) H 11/27/17 16:18 Total Protein 4.5 g/dL (6.3-8.2) L 11/25/17 03:02 Albumin 2.4 g/dL (3.9-5) L 11/25/17 03:02 Albumin/Globulin Ratio 1.1 % 11/25/17 03:02 Urine Color Yellow (Yellow) 11/23/17 13:39 Urine Turbidity Clear (Clear) 11/23/17 13:39 Urine pH 5.0 (5.0-7.0) 11/23/17 13:39 Ur Specific [place] 1.020 (1.003-1.030) 11/23/17 13:39 Urine Protein 30 mg/dl mg/dL (Negative) 11/23/17 13:39 Urine Glucose (UA) Neg mg/dL (Negative) 11/23/17 13:39 Urine Ketones Neg mg/dL (Negative) 11/23/17 13:39 Urine Blood Neg (Negative) 11/23/17 13:39 Urine Nitrite Neg (Negative) 11/23/17 13:39 Urine Bilirubin Neg (Negative) 11/23/17 13:39 Urine Urobilinogen 2.0 mg/dL (<2.0) 11/23/17 13:39 Ur Leukocyte Esterase Neg (Negative) 11/23/17 13:39 Urine WBC (Auto) 5.0 /HPF (0.0-6.0) 11/23/17 13:39 Urine RBC (Auto) 1.0 /HPF (0.0-6.0) 11/23/17 13:39 U Epithel Cells (Auto) 1.0 /HPF (0-13.0) 11/23/17 13:39 Urine Bacteria (Auto) 1+ /HPF (Negative) 11/23/17 13:39 Hyaline Casts 11 /LPF 11/23/17 13:39 Urine Mucus 2+ /HPF 11/23/17 13:39 Salicylates < 0.3 mg/dL (2.8-20.0) L 11/23/17 15:54 Urine Opiates Screen Presumptive positive 11/23/17 13:39 Urine Methadone Screen Presumptive negative 11/23/17 13:39 Acetaminophen < 15.0 ug/mL (10.0-30.0) 11/23/17 15:54 Ur Barbiturates Screen Presumptive negative 11/23/17 13:39 Levetiracetam 30.0 mcg/mL 11/25/17 17:30 Ur Phencyclidine Scrn Presumptive negative 11/23/17 13:39 Ur Amphetamines Screen Presumptive negative 11/23/17 13:39 U Benzodiazepines Scrn Presumptive positive 11/23/17 13:39 Urine Cocaine Screen Presumptive negative 11/23/17 13:39 U Marijuana (THC) Screen Presumptive negative 11/23/17 13:39 Drugs of Abuse Note Disclamer 11/23/17 13:39 Miscellaneous Test Flexitest 1 H 11/28/17 09:23
[2017-12-01] MEDS: KCL 20 MEQ in D5W 1,000 ML IV SCH (22:38)
[2017-12-02] MEDS: KEPPRA IV SCH ×3 (02:31→06:00)
[2017-12-02] MEDS: D5W IV SCH ×3 (02:31→06:00)
[2017-12-02] MEDS: ZOSYN/NS 4.5GM/100ML 4.5 GM/100 ML VIAL IV SCH ×2 (02:34→09:42)
[2017-12-02] MEDS: HEPARIN SUB-Q SCH ×3 (05:59→22:07)
[2017-12-02] MEDS: REGLAN PO SCH ×3 (06:00→22:07)
[2017-12-02] MEDS: DUONEB *Not for PRN Use IH SCH ×3 (07:57→20:09)
[2017-12-02] MEDS: KCL 20 MEQ in D5W 1,000 ML IV SCH (08:47)
[2017-12-02] MEDS: PEPCID PO SCH ×2 (09:42→22:07)
[2017-12-02] MEDS: TAMIFLU PO SCH (11:15)
[2017-12-02] MEDS: KEPPRA PO SCH ×2 (11:16→16:59)
--- NOTE | 2017-12-02 13:02 | Progress Note ---
Assessment and Plan Acute hypoxemic respiratory failure, on mechanical ventilatory support. Status post cardiac arrest. Likely aspiration pneumonia. Acute encephalopathy with myoclonic jerks at this point, but with evidence of brainstem function. Acute exacerbation of chronic obstructive pulmonary disease. Tobacco use disorder. Obesity. Hypertension. History of alcohol abuse - continue full MVS acutely - continue Peep to 8 - continue to wean oxygen for sats > 90% (FiO2 at 50%) - stopped versed and watching for tremors/seizures - Encephalopathy w/up ongoing - stopped benadryl for angioedema type tongue swelling (swelling better) - continue GI prophylaxis - continue aspiration precautions / address VAP bundle daily - continue bronchodilators and pulmonary hygiene per RT - continue reglan - continue enteral nutrition - continue GI & VTE prophylaxis - continue empiric AB's and follow C&S - continue other care per attending/ other consultants ...AMS will likely be rate limiting step to extubation; family tentatively considering withdrawal; will con) ....remains critically ill on MVS and at high risk for further deterioration including ..30' CCT Subjective Date of service: 12/02/17 Principal diagnosis: Acute Hypoxemic Resp Failure; S/P Cardiac Arrest; Acute Encephalopathy Interval history: Patient is seen today for: Acute Hypoxemic Resp Failure; S/P Cardiac Arrest; Acute Encephalopathy Seen and examined at bedside; 24hour events reviewed; nursing and respiratory care staff consulted; no adverse overnight events reported to me; reamins on MVS ; AMS is persistent; weaning tenuously still; no grand mal seizures; neurology w /up consistent with poor neural outcomes and family contemplating comfort care / withdrawal Objective Vital Signs - 12hr 12/02/17 12/02/17 12/02/17 01:15 02:01 03:01 Temperature Pulse Rate 91 H 94 H 94 H Pulse Rate [ Anterior Bilateral Throughout] Pulse Rate [ From Monitor] Respiratory 18 23 24 Rate Respiratory Rate [Anterior Bilateral Throughout] Blood Pressure 193/82 195/84 187/86 O2 Sat by Pulse 96 93 96 Oximetry 12/02/17 12/02/17 12/02/17 03:31 04:00 04:01 Temperature 98.9 F Pulse Rate 95 H 95 H Pulse Rate [ Anterior Bilateral Throughout] Pulse Rate [ From Monitor] Respiratory 21 Rate Respiratory Rate [Anterior Bilateral Throughout] Blood Pressure 187/86 108/61 O2 Sat by Pulse 95 92 Oximetry 02/12/02/17 12/02/17 05:01 05:31 06:00 Temperature Pulse Rate 97 H 103 H 96 H Pulse Rate [ Anterior Bilateral Throughout] Pulse Rate [ From Monitor] Respiratory 20 16 18 Rate Respiratory Rate [Anterior Bilateral Throughout] Blood Pressure 144/75 144/75 152/75 O2 Sat by Pulse 92 94 92 Oximetry 12/02/17 12/02/17 12/02/17 06:30 07:01 07:31 Temperature Pulse Rate 95 H 95 H 96 H Pulse Rate [ Anterior Bilateral Throughout] Pulse Rate [ From Monitor] Respiratory 16 18 20 Rate Respiratory Rate [Anterior Bilateral Throughout] Blood Pressure 152/75 124/79 124/79 O2 Sat by Pulse 93 93 93 Oximetry 12/02/17 12/02/17 12/02/17 07:39 07:57 08:01 Temperature 99.1 F Pulse Rate 96 H 96 H Pulse Rate [ 96 H Anterior Bilateral Throughout] Pulse Rate [ From Monitor] Respiratory 16 Rate Respiratory 20 Rate [Anterior Bilateral Throughout] Blood Pressure 139/76 139/76 O2 Sat by Pulse 93 92 Oximetry 12/02/17 12/02/17 12/02/17 08:31 09:00 09:31 Temperature Pulse Rate 95 H 91 H 91 H Pulse Rate [ Anterior Bilateral Throughout] Pulse Rate [ From Monitor] Respiratory 18 18 18 Rate Respiratory Rate [Anterior Bilateral Throughout] Blood Pressure 139/76 125/59 125/59 O2 Sat by Pulse 90 93 95 Oximetry 12/02/17 12/02/17 12/02/17 10:00 10:01 10:31 Temperature Pulse Rate 90 95 H Pulse Rate [ Anterior Bilateral Throughout] Pulse Rate [ 92 H From Monitor] Respiratory 18 18 18 Rate Respiratory Rate [Anterior Bilateral Throughout] Blood Pressure 152/68 152/68 O2 Sat by Pulse 92 95 96 Oximetry 12/02/17 12/02/17 12/02/17 11:01 11:31 12:00 Temperature 100.1 F H Pulse Rate 97 H 96 H Pulse Rate [ Anterior Bilateral Throughout] Pulse Rate [ From Monitor] Respiratory 20 19 Rate Respiratory Rate [Anterior Bilateral Throughout] Blood Pressure 139/76 139/76 O2 Sat by Pulse 95 95 Oximetry 12/02/17 12/02/17 12:01 12:31 Temperature Pulse Rate 96 H 97 H Pulse Rate [ Anterior Bilateral Throughout] Pulse Rate [ From Monitor] Respiratory 19 18 Rate Respiratory Rate [Anterior Bilateral Throughout] Blood Pressure 139/76 139/76 O2 Sat by Pulse 94 94 Oximetry Constitutional: appears uncomfortable, other (obtunded) Eyes: non-icteric ENT: oropharynx moist Neck: supple, no lymphadenopathy, no JVD, other (no thyromegaly) Effort: mildly labored Ascultation: Bilateral: diminished breath sounds, rhonchi Percussion: Bilateral: not dull Cardiovascular: regular rate and rhythm, other (no rubs or murmurs) Gastrointestinal: hypoactive bowel sounds, soft, non-tender, non-distended, other (no palapble HSM) Integumentary: normal Extremities: no cyanosis, pink and warm, pulses normal, edema Neurologic: pupils equal and round, unable to assess Psychiatric: other (unable to assess) CBC and BMP: 12/03/17 20:02 11/30/17 03:48 ABG, PT/INR, D-dimer: ABG POC ABG pH 7.406 (7.35-7.45) 12/02/17 03:17 POC ABG pCO2 51.5 (35-45) H 12/02/17 03:17 POC ABG pO2 67 (80-105) L 12/02/17 03:17 POC ABG HCO3 32.4 12/02/17 03:17 POC ABG Total CO2 34 12/02/17 03:17 POC ABG O2 Sat 93 12/02/17 03:17 PT/INR, D-dimer PT 15.3 Sec. (12.2-14.9) H 11/23/17 12:44 INR 1.15 (0.87-1.13) H 11/23/17 12:44 D-Dimer 1977.37 ng/mlDDU (0-234) H 11/24/17 14:44 Abnormal lab findings: Abnormal Labs 11/23/17 11/23/17 11/23/17 12:44 12:44 12:44 WBC 13.0 H RBC Hgb Hct 46.1 H MCV 112 H MCH 33 H MCHC 29 L RDW 18.5 H Plt Count Lymph % (Auto) [place] % (Auto) Lymph # [place] # Eos # Seg Neutrophils % Seg Neuts % (Manual) 71.0 H Monocytes % (Manual) 8.0 H Nucleated RBC % 6.0 H Seg Neutrophils # Seg Neutrophils # Man 9.2 H Monocytes # (Manual) 1.0 H PT 15.3 H INR 1.15 H D-Dimer POC ABG pH POC ABG pCO2 POC ABG pO2 Sodium Potassium 5.4 H Chloride 85.2 L Carbon Dioxide BUN 19 H Creatinine 1.3 H Glucose 175 H POC Glucose Lactic Acid Calcium AST 310 H ALT 262 H C-Reactive Protein Total Protein 5.7 L Albumin 2.9 L Salicylates Miscellaneous Test 11/23/17 11/23/17 11/23/17 12:44 13:23 15:54 WBC RBC Hgb Hct MCV MCH MCHC RDW Plt Count Lymph % (Auto) [place] % (Auto) Lymph # [place] # Eos # Seg Neutrophils % Seg Neuts % (Manual) Monocytes % (Manual) Nucleated RBC % Seg Neutrophils # Seg Neutrophils # Man Monocytes # (Manual) PT INR D-Dimer POC ABG pH 7.035 L POC ABG pCO2 99.1 H POC ABG pO2 343 H Sodium Potassium Chloride Carbon Dioxide BUN Creatinine Glucose POC Glucose Lactic Acid 16.10 H* Calcium AST ALT C-Reactive Protein Total Protein Albumin Salicylates < 0.3 L Miscellaneous Test 11/23/17 11/24/17 11/24/17 16:42 04:03 04:03 WBC 16.8 H RBC Hgb 15.7 H Hct 48.9 H MCV 101 H MCH MCHC RDW 16.5 H Plt Count Lymph % (Auto) 5.2 L [place] % (Auto) Lymph # 0.9 L [place] # 0.9 H Eos # Seg Neutrophils % 89.1 H Seg Neuts % (Manual) Monocytes % (Manual) Nucleated RBC % Seg Neutrophils # 14.9 H Seg Neutrophils # Man Monocytes # (Manual) PT INR D-Dimer POC ABG pH POC ABG pCO2 POC ABG pO2 55 L Sodium Potassium Chloride 96.0 L Carbon Dioxide 33 H D BUN 28 H Creatinine 1.5 H Glucose 108 H POC Glucose Lactic Acid Calcium 7.7 L AST 1091 H ALT 986 H C-Reactive Protein Total Protein 5.0 L Albumin 2.8 L Salicylates Miscellaneous Test 11/24/17 11/24/17 11/24/17 05:55 13:29 13:29 WBC RBC Hgb Hct MCV MCH MCHC RDW Plt Count Lymph % (Auto) [place] % (Auto) Lymph # [place] # Eos # Seg Neutrophils % Seg Neuts % (Manual) Monocytes % (Manual) Nucleated RBC % Seg Neutrophils # Seg Neutrophils # Man Monocytes # (Manual) PT INR D-Dimer POC ABG pH 7.469 H POC ABG pCO2 52.3 H POC ABG pO2 69 L Sodium Potassium Chloride Carbon Dioxide BUN Creatinine Glucose POC Glucose Lactic Acid 3.20 H* Calcium AST ALT C-Reactive Protein 9.20 H Total Protein Albumin Salicylates Miscellaneous Test 11/24/17 11/24/17 11/25/17 14:44 20:55 01:55 WBC RBC Hgb Hct MCV MCH MCHC RDW Plt Count Lymph % (Auto) [place] % (Auto) Lymph # [place] # Eos # Seg Neutrophils % Seg Neuts % (Manual) Monocytes % (Manual) Nucleated RBC % Seg Neutrophils # Seg Neutrophils # Man Monocytes # (Manual) PT INR D-Dimer 1977.37 H POC ABG pH 7.471 H POC ABG pCO2 56.2 H POC ABG pO2 Sodium Potassium Chloride Carbon Dioxide BUN Creatinine Glucose POC Glucose Lactic Acid 3.00 H* Calcium AST ALT C-Reactive Protein Total Protein Albumin Salicylates Miscellaneous Test 11/25/17 11/25/17 11/25/17 03:02 03:02 03:02 WBC 16.0 H RBC Hgb Hct MCV 99 H MCH MCHC RDW 16.0 H Plt Count Lymph % (Auto) 11.6 L [place] % (Auto) Lymph # [place] # 1.0 H Eos # Seg Neutrophils % 81.8 H Seg Neuts % (Manual) Monocytes % (Manual) Nucleated RBC % Seg Neutrophils # 13.1 H Seg Neutrophils # Man Monocytes # (Manual) PT INR D-Dimer POC ABG pH POC ABG pCO2 POC ABG pO2 Sodium 148 H Potassium Chloride Carbon Dioxide 35 H BUN 30 H Creatinine 1.9 H Glucose 106 H POC Glucose Lactic Acid 2.90 H* Calcium 7.0 L AST ALT C-Reactive Protein Total Protein Albumin Salicylates Miscellaneous Test 11/25/17 11/25/17 11/25/17 03:02 03:35 07:15 WBC RBC Hgb Hct MCV MCH MCHC RDW Plt Count Lymph % (Auto) [place] % (Auto) Lymph # [place] # Eos # Seg Neutrophils % Seg Neuts % (Manual) Monocytes % (Manual) Nucleated RBC % Seg Neutrophils # Seg Neutrophils # Man Monocytes # (Manual) PT INR D-Dimer POC ABG pH 7.494 H POC ABG pCO2 48.1 H POC ABG pO2 Sodium Potassium Chloride Carbon Dioxide BUN Creatinine Glucose POC Glucose Lactic Acid 2.30 H* Calcium AST 300 H ALT 561 H C-Reactive Protein Total Protein 4.5 L Albumin 2.4 L Salicylates Miscellaneous Test 11/26/17 11/26/17 11/26/17 03:26 03:26 03:52 WBC 12.7 H RBC Hgb 14.9 H Hct 45.9 H MCV 98 H MCH MCHC RDW 16.3 H Plt Count 137 L Lymph % (Auto) 10.0 L [place] % (Auto) Lymph # [place] # Eos # Seg Neutrophils % 82.7 H Seg Neuts % (Manual) Monocytes % (Manual) Nucleated RBC % Seg Neutrophils # 10.5 H Seg Neutrophils # Man Monocytes # (Manual) PT INR D-Dimer POC ABG pH 7.475 H POC ABG pCO2 POC ABG pO2 71 L Sodium 150 H Potassium 3.3 L Chloride Carbon Dioxide BUN 22 H Creatinine 1.7 H Glucose 107 H POC Glucose Lactic Acid Calcium 7.5 L AST ALT C-Reactive Protein Total Protein Albumin Salicylates Miscellaneous Test 11/26/17 11/26/17 11/26/17 11:49 17:53 23:56 WBC RBC Hgb Hct MCV MCH MCHC RDW Plt Count Lymph % (Auto) [place] % (Auto) Lymph # [place] # Eos # Seg Neutrophils % Seg Neuts % (Manual) Monocytes % (Manual) Nucleated RBC % Seg Neutrophils # Seg Neutrophils # Man Monocytes # (Manual) PT INR D-Dimer POC ABG pH POC ABG pCO2 POC ABG pO2 Sodium Potassium Chloride Carbon Dioxide BUN Creatinine Glucose POC Glucose 109 H 168 H 145 H Lactic Acid Calcium AST ALT C-Reactive Protein Total Protein Albumin Salicylates Miscellaneous Test 11/27/17 11/27/17 11/27/17 04:22 04:22 04:53 WBC 11.7 H RBC Hgb 15.7 H Hct 49.8 H MCV 100 H MCH MCHC RDW 16.4 H Plt Count 105 L Lymph % (Auto) 7.6 L [place] % (Auto) 8.7 H Lymph # 0.9 L [place] # 1.0 H Eos # Seg Neutrophils % 83.2 H Seg Neuts % (Manual) Monocytes % (Manual) Nucleated RBC % Seg Neutrophils # 9.7 H Seg Neutrophils # Man Monocytes # (Manual) PT INR D-Dimer POC ABG pH POC ABG pCO2 53.1 H POC ABG pO2 70 L Sodium 155 H Potassium Chloride 113.1 H Carbon Dioxide BUN Creatinine 1.5 H Glucose 128 H POC Glucose Lactic Acid Calcium 7.4 L AST ALT C-Reactive Protein Total Protein Albumin Salicylates Miscellaneous Test 11/27/17 11/27/17 11/27/17 05:34 11:27 16:18 WBC RBC Hgb Hct MCV MCH MCHC RDW Plt Count Lymph % (Auto) [place] % (Auto) Lymph # [place] # Eos # Seg Neutrophils % Seg Neuts % (Manual) Monocytes % (Manual) Nucleated RBC % Seg Neutrophils # Seg Neutrophils # Man Monocytes # (Manual) PT INR D-Dimer POC ABG pH POC ABG pCO2 POC ABG pO2 Sodium Potassium Chloride Carbon Dioxide BUN Creatinine Glucose POC Glucose 120 H 129 H Lactic Acid Calcium AST ALT C-Reactive Protein 13.70 H Total Protein Albumin Salicylates Miscellaneous Test 11/27/17 11/27/17 11/28/17 17:19 23:56 03:17 WBC 14.5 H RBC Hgb 15.2 H Hct 48.3 H MCV 99 H MCH MCHC RDW 16.5 H Plt Count 108 L Lymph % (Auto) 9.7 L [place] % (Auto) Lymph # [place] # 1.0 H Eos # Seg Neutrophils % 81.0 H Seg Neuts % (Manual) Monocytes % (Manual) Nucleated RBC % Seg Neutrophils # 11.8 H Seg Neutrophils # Man Monocytes # (Manual) PT INR D-Dimer POC ABG pH POC ABG pCO2 POC ABG pO2 Sodium Potassium Chloride Carbon Dioxide BUN Creatinine Glucose POC Glucose 138 H 125 H Lactic Acid Calcium AST ALT C-Reactive Protein Total Protein Albumin Salicylates Miscellaneous Test 11/28/17 11/28/17 11/28/17 03:17 05:34 06:46 WBC RBC Hgb Hct MCV MCH MCHC RDW Plt Count Lymph % (Auto) [place] % (Auto) Lymph # [place] # Eos # Seg Neutrophils % Seg Neuts % (Manual) Monocytes % (Manual) Nucleated RBC % Seg Neutrophils # Seg Neutrophils # Man Monocytes # (Manual) PT INR D-Dimer POC ABG pH 7.324 L POC ABG pCO2 63.4 H POC ABG pO2 65 L Sodium 150 H Potassium 3.4 L Chloride 107.9 H Carbon Dioxide 31 H BUN 19 H Creatinine 1.3 H Glucose 126 H POC Glucose 132 H Lactic Acid Calcium 7.7 L AST ALT C-Reactive Protein Total Protein Albumin Salicylates Miscellaneous Test 11/28/17 11/28/17 11/28/17 09:23 12:17 17:20 WBC RBC Hgb Hct MCV MCH MCHC RDW Plt Count Lymph % (Auto) [place] % (Auto) Lymph # [place] # Eos # Seg Neutrophils % Seg Neuts % (Manual) Monocytes % (Manual) Nucleated RBC % Seg Neutrophils # Seg Neutrophils # Man Monocytes # (Manual) PT INR D-Dimer POC ABG pH POC ABG pCO2 POC ABG pO2 Sodium Potassium Chloride Carbon Dioxide BUN Creatinine Glucose POC Glucose 142 H 136 H Lactic Acid Calcium AST ALT C-Reactive Protein Total Protein Albumin Salicylates Miscellaneous Test Flexitest 1 H 11/29/17 11/29/17 11/29/17 00:12 04:36 04:47 WBC 14.1 H RBC 5.32 H Hgb 16.4 H Hct 51.2 H MCV MCH MCHC RDW 15.8 H Plt Count 77 L Lymph % (Auto) 7.6 L [place] % (Auto) Lymph # 1.1 L [place] # 0.9 H Eos # 0.5 H Seg Neutrophils % 81.5 H Seg Neuts % (Manual) Monocytes % (Manual) Nucleated RBC % Seg Neutrophils # 11.5 H Seg Neutrophils # Man Monocytes # (Manual) PT INR D-Dimer POC ABG pH POC ABG pCO2 POC ABG pO2 61 L Sodium Potassium Chloride Carbon Dioxide BUN Creatinine Glucose POC Glucose 119 H Lactic Acid Calcium AST ALT C-Reactive Protein Total Protein Albumin Salicylates Miscellaneous Test 11/29/17 11/29/17 11/29/17 04:47 05:29 11:48 WBC RBC Hgb Hct MCV MCH MCHC RDW Plt Count Lymph % (Auto) [place] % (Auto) Lymph # [place] # Eos # Seg Neutrophils % Seg Neuts % (Manual) Monocytes % (Manual) Nucleated RBC % Seg Neutrophils # Seg Neutrophils # Man Monocytes # (Manual) PT INR D-Dimer POC ABG pH POC ABG pCO2 POC ABG pO2 Sodium Potassium Chloride Carbon Dioxide BUN 18 H Creatinine Glucose 119 H POC Glucose 128 H 128 H Lactic Acid Calcium 8.2 L AST ALT C-Reactive Protein Total Protein Albumin Salicylates Miscellaneous Test 11/29/17 11/29/17 11/30/17 17:32 17:39 03:48 WBC 13.5 H RBC Hgb 15.4 H Hct 47.2 H MCV MCH MCHC RDW 16.3 H Plt Count Lymph % (Auto) 10.5 L [place] % (Auto) 7.7 H Lymph # [place] # 1.0 H Eos # 0.5 H Seg Neutrophils % 76.8 H Seg Neuts % (Manual) Monocytes % (Manual) Nucleated RBC % Seg Neutrophils # 10.4 H Seg Neutrophils # Man Monocytes # (Manual) PT INR D-Dimer POC ABG pH POC ABG pCO2 51.6 H POC ABG pO2 345 H Sodium Potassium Chloride Carbon Dioxide BUN Creatinine Glucose POC Glucose 124 H Lactic Acid Calcium AST ALT C-Reactive Protein Total Protein Albumin Salicylates Miscellaneous Test 11/30/17 11/30/17 11/30/17 03:48 03:52 23:37 WBC RBC Hgb Hct MCV MCH MCHC RDW Plt Count Lymph % (Auto) [place] % (Auto) Lymph # [place] # Eos # Seg Neutrophils % Seg Neuts % (Manual) Monocytes % (Manual) Nucleated RBC % Seg Neutrophils # Seg Neutrophils # Man Monocytes # (Manual) PT INR D-Dimer POC ABG pH 7.503 H POC ABG pCO2 POC ABG pO2 65 L Sodium Potassium Chloride Carbon Dioxide BUN Creatinine Glucose 121 H POC Glucose 140 H Lactic Acid Calcium 7.6 L AST ALT C-Reactive Protein Total Protein Albumin Salicylates Miscellaneous Test 12/01/17 12/01/17 12/01/17 03:17 05:30 12:37 WBC RBC Hgb Hct MCV MCH MCHC RDW Plt Count Lymph % (Auto) [place] % (Auto) Lymph # [place] # Eos # Seg Neutrophils % Seg Neuts % (Manual) Monocytes % (Manual) Nucleated RBC % Seg Neutrophils # Seg Neutrophils # Man Monocytes # (Manual) PT INR D-Dimer POC ABG pH POC ABG pCO2 52.7 H POC ABG pO2 64 L Sodium Potassium Chloride Carbon Dioxide BUN Creatinine Glucose POC Glucose 171 H 175 H Lactic Acid Calcium AST ALT C-Reactive Protein Total Protein Albumin Salicylates Miscellaneous Test 12/01/17 12/02/17 12/02/17 17:41 00:01 03:17 WBC RBC Hgb Hct MCV MCH MCHC RDW Plt Count Lymph % (Auto) [place] % (Auto) Lymph # [place] # Eos # Seg Neutrophils % Seg Neuts % (Manual) Monocytes % (Manual) Nucleated RBC % Seg Neutrophils # Seg Neutrophils # Man Monocytes # (Manual) PT INR D-Dimer POC ABG pH POC ABG pCO2 51.5 H POC ABG pO2 67 L Sodium Potassium Chloride Carbon Dioxide BUN Creatinine Glucose POC Glucose 165 H 184 H Lactic Acid Calcium AST ALT C-Reactive Protein Total Protein Albumin Salicylates Miscellaneous Test 12/02/17 12/02/17 05:54 11:44 WBC RBC Hgb Hct MCV MCH MCHC RDW Plt Count Lymph % (Auto) [place] % (Auto) Lymph # [place] # Eos # Seg Neutrophils % Seg Neuts % (Manual) Monocytes % (Manual) Nucleated RBC % Seg Neutrophils # Seg Neutrophils # Man Monocytes # (Manual) PT INR D-Dimer POC ABG pH POC ABG pCO2 POC ABG pO2 Sodium Potassium Chloride Carbon Dioxide BUN Creatinine Glucose POC Glucose 208 H 175 H Lactic Acid Calcium AST ALT C-Reactive Protein Total Protein Albumin Salicylates Miscellaneous Test Chest x-ray: image reviewed Allied health notes reviewed: nursing
--- NOTE | 2017-12-02 13:57 | Progress Note ---
Assessment and Plan This unfortunate 56 year old female who was found pulseless, in asystole on and resuscitated, remains with no neurological function at this time. CT confirms severe anoxic damage from 11/26/17. EEG reveals no cortical activity. She is off all sedation. Patient fits criteria for brain , cortical. Brain stem has function only demonstrated by spontaneous respiration off the ventilator. Plan -Discussed with family the poor prognosis and the fact that if a resuscitation had to be done again it would not benefit her. They are awaiting further relatives to come to [place] before signing DNR paperwork. They should arrive on Sat. Subjective Principal diagnosis: Acute Hypoxemic Resp Failure; S/P Cardiac Arrest; Acute Encephalopathy Interval history: This 56 year old female was found down on 11/23/17, lives in a dwelling with another family. She was found by the homeowner who called EMS. When they arrived she was cold and without pulse. A cardiac rhythm was obtained with epinephrine injection and ACLS protocol followed. The pt. has a history of type II diabetes, COPD. She smokes 1 1/2 PPD for 30 years. She developed myoclonus after admission to [facility] which seems to be under control withKeppra and oxcarbazepine. CT from 11/26/17 reveals cerebral edema with some sparing of right frontal areas. There is ischemic change in bilateral basal ganglia, cerebellum. Consistent with anoxic encephalopathy. 12/02/2017 Continues unresponsive on the ventilator. No spontaneous or induced movement. Objective - Exam Narrative Exam: HEENT - no myoclonus or seizure activity. eyes closed. pupils 3 to 4 mm and not reactive. Heart - rate of 84. Regular. Nl S-1 and S-2. Lungs - end inspiratory and expiratory wheeze Abdomen - soft. min. bowel sounds. Extremities - no edema. no lesions. Neuro - unresponsive on ventilator. drafter heating and ventilating - eyes are midline absent corneals. face symmetric. No response to suctioning. Motor - no spontaneous movement. no movement to deep pain stimuli bilaterally. Sensory - as above. Reflexes - absent throughout. No babinski A repeat EEG performed 12/01/17 continues to reveal no brain activity, in keeping with what we are seeing on exam. Apnea test positive for spontaneous respiration on 11/29. - Vital Sign Vital Signs - 12hr 02/16/18 02/16/18 02/16/18 02:01 03:01 03:31 Temperature Pulse Rate 94 H 94 H 95 H Pulse Rate [ Anterior Bilateral Throughout] Pulse Rate [ From Monitor] Respiratory 23 24 Rate Respiratory Rate [Anterior Bilateral Throughout] Blood Pressure 195/84 187/86 187/86 O2 Sat by Pulse 93 96 95 Oximetry 12/02/17 12/02/17 12/02/17 04:00 04:01 05:01 Temperature 98.9 F Pulse Rate 95 H 97 H Pulse Rate [ Anterior Bilateral Throughout] Pulse Rate [ From Monitor] Respiratory 21 20 Rate Respiratory Rate [Anterior Bilateral Throughout] Blood Pressure 108/61 144/75 O2 Sat by Pulse 92 92 Oximetry 12/02/17 12/02/17 12/02/17 05:31 06:00 06:30 Temperature Pulse Rate 103 H 96 H 95 H Pulse Rate [ Anterior Bilateral Throughout] Pulse Rate [ From Monitor] Respiratory 16 18 16 Rate Respiratory Rate [Anterior Bilateral Throughout] Blood Pressure 144/75 152/75 152/75 O2 Sat by Pulse 94 92 93 Oximetry 12/02/17 12/02/17 12/02/17 07:01 07:31 07:39 Temperature 99.1 F Pulse Rate 95 H 96 H Pulse Rate [ Anterior Bilateral Throughout] Pulse Rate [ From Monitor] Respiratory 18 20 Rate Respiratory Rate [Anterior Bilateral Throughout] Blood Pressure 124/79 124/79 O2 Sat by Pulse 93 93 Oximetry 12/02/17 12/02/17 12/02/17 07:57 08:01 08:31 Temperature Pulse Rate 96 H 96 H 95 H Pulse Rate [ 96 H Anterior Bilateral Throughout] Pulse Rate [ From Monitor] Respiratory 16 18 Rate Respiratory 20 Rate [Anterior Bilateral Throughout] Blood Pressure 139/76 139/76 139/76 O2 Sat by Pulse 93 92 90 Oximetry 12/02/17 12/02/17 12/02/17 09:00 09:31 10:00 Temperature Pulse Rate 91 H 91 H 91 H Pulse Rate [ Anterior Bilateral Throughout] Pulse Rate [ 92 H From Monitor] Respiratory 18 18 18 Rate Respiratory Rate [Anterior Bilateral Throughout] Blood Pressure 125/59 125/59 O2 Sat by Pulse 93 95 92 Oximetry 12/02/17 12/02/17 12/02/17 10:01 10:31 11:01 Temperature Pulse Rate 90 95 H 97 H Pulse Rate [ Anterior Bilateral Throughout] Pulse Rate [ From Monitor] Respiratory 18 18 20 Rate Respiratory Rate [Anterior Bilateral Throughout] Blood Pressure 152/68 152/68 139/76 O2 Sat by Pulse 95 96 95 Oximetry 12/02/17 12/02/17 12/02/17 11:31 12:00 12:01 Temperature 100.1 F H Pulse Rate 96 H 96 H Pulse Rate [ Anterior Bilateral Throughout] Pulse Rate [ From Monitor] Respiratory 19 19 Rate Respiratory Rate [Anterior Bilateral Throughout] Blood Pressure 139/76 139/76 O2 Sat by Pulse 95 94 Oximetry 12/02/17 12/02/17 12/02/17 12:31 13:01 13:27 Temperature Pulse Rate 97 H 96 H Pulse Rate [ 97 H Anterior Bilateral Throughout] Pulse Rate [ From Monitor] Respiratory 18 18 Rate Respiratory 20 Rate [Anterior Bilateral Throughout] Blood Pressure 139/76 142/76 O2 Sat by Pulse 94 94 Oximetry - Laboratory Findings CBC and BMP: 11/30/17 03:48 11/30/17 03:48 Abnormal Lab Findings: Abnormal Labs 11/23/17 11/23/17 11/23/17 12:44 12:44 12:44 WBC 13.0 H RBC Hgb Hct 46.1 H MCV 112 H MCH 33 H MCHC 29 L RDW 18.5 H Plt Count Lymph % (Auto) Wood % (Auto) Lymph # Wood # Eos # Seg Neutrophils % Seg Neuts % (Manual) 71.0 H Monocytes % (Manual) 8.0 H Nucleated RBC % 6.0 H Seg Neutrophils # Seg Neutrophils # Man 9.2 H Monocytes # (Manual) 1.0 H PT 15.3 H INR 1.15 H D-Dimer POC ABG pH POC ABG pCO2 POC ABG pO2 Sodium Potassium 5.4 H Chloride 85.2 L Carbon Dioxide BUN 19 H Creatinine 1.3 H Glucose 175 H POC Glucose Lactic Acid Calcium AST 310 H ALT 262 H C-Reactive Protein Total Protein 5.7 L Albumin 2.9 L Salicylates Miscellaneous Test 11/23/17 11/23/17 11/23/17 12:44 13:23 15:54 WBC RBC Hgb Hct MCV MCH MCHC RDW Plt Count Lymph % (Auto) Wood % (Auto) Lymph # Wood # Eos # Seg Neutrophils % Seg Neuts % (Manual) Monocytes % (Manual) Nucleated RBC % Seg Neutrophils # Seg Neutrophils # Man Monocytes # (Manual) PT INR D-Dimer POC ABG pH 7.035 L POC ABG pCO2 99.1 H POC ABG pO2 343 H Sodium Potassium Chloride Carbon Dioxide BUN Creatinine Glucose POC Glucose Lactic Acid 16.10 H* Calcium AST ALT C-Reactive Protein Total Protein Albumin Salicylates < 0.3 L Miscellaneous Test 11/23/17 11/24/17 11/24/17 16:42 04:03 04:03 WBC 16.8 H RBC Hgb 15.7 H Hct 48.9 H MCV 101 H MCH MCHC RDW 16.5 H Plt Count Lymph % (Auto) 5.2 L Wood % (Auto) Lymph # 0.9 L Wood # 0.9 H Eos # Seg Neutrophils % 89.1 H Seg Neuts % (Manual) Monocytes % (Manual) Nucleated RBC % Seg Neutrophils # 14.9 H Seg Neutrophils # Man Monocytes # (Manual) PT INR D-Dimer POC ABG pH POC ABG pCO2 POC ABG pO2 55 L Sodium Potassium Chloride 96.0 L Carbon Dioxide 33 H D BUN 28 H Creatinine 1.5 H Glucose 108 H POC Glucose Lactic Acid Calcium 7.7 L AST 1091 H ALT 986 H C-Reactive Protein Total Protein 5.0 L Albumin 2.8 L Salicylates Miscellaneous Test 11/24/17 11/24/17 11/24/17 05:55 13:29 13:29 WBC RBC Hgb Hct MCV MCH MCHC RDW Plt Count Lymph % (Auto) Wood % (Auto) Lymph # Wood # Eos # Seg Neutrophils % Seg Neuts % (Manual) Monocytes % (Manual) Nucleated RBC % Seg Neutrophils # Seg Neutrophils # Man Monocytes # (Manual) PT INR D-Dimer POC ABG pH 7.469 H POC ABG pCO2 52.3 H POC ABG pO2 69 L Sodium Potassium Chloride Carbon Dioxide BUN Creatinine Glucose POC Glucose Lactic Acid 3.20 H* Calcium AST ALT C-Reactive Protein 9.20 H Total Protein Albumin Salicylates Miscellaneous Test 11/24/17 11/24/17 11/25/17 14:44 20:55 01:55 WBC RBC Hgb Hct MCV MCH MCHC RDW Plt Count Lymph % (Auto) Wood % (Auto) Lymph # Wood # Eos # Seg Neutrophils % Seg Neuts % (Manual) Monocytes % (Manual) Nucleated RBC % Seg Neutrophils # Seg Neutrophils # Man Monocytes # (Manual) PT INR D-Dimer 1977.37 H POC ABG pH 7.471 H POC ABG pCO2 56.2 H POC ABG pO2 Sodium Potassium Chloride Carbon Dioxide BUN Creatinine Glucose POC Glucose Lactic Acid 3.00 H* Calcium AST ALT C-Reactive Protein Total Protein Albumin Salicylates Miscellaneous Test 11/25/17 11/25/17 11/25/17 03:02 03:02 03:02 WBC 16.0 H RBC Hgb Hct MCV 99 H MCH MCHC RDW 16.0 H Plt Count Lymph % (Auto) 11.6 L Wood % (Auto) Lymph # Wood # 1.0 H Eos # Seg Neutrophils % 81.8 H Seg Neuts % (Manual) Monocytes % (Manual) Nucleated RBC % Seg Neutrophils # 13.1 H Seg Neutrophils # Man Monocytes # (Manual) PT INR D-Dimer POC ABG pH POC ABG pCO2 POC ABG pO2 Sodium 148 H Potassium Chloride Carbon Dioxide 35 H BUN 30 H Creatinine 1.9 H Glucose 106 H POC Glucose Lactic Acid 2.90 H* Calcium 7.0 L AST ALT C-Reactive Protein Total Protein Albumin Salicylates Miscellaneous Test 11/25/17 11/25/17 11/25/17 03:02 03:35 07:15 WBC RBC Hgb Hct MCV MCH MCHC RDW Plt Count Lymph % (Auto) Wood % (Auto) Lymph # Wood # Eos # Seg Neutrophils % Seg Neuts % (Manual) Monocytes % (Manual) Nucleated RBC % Seg Neutrophils # Seg Neutrophils # Man Monocytes # (Manual) PT INR D-Dimer POC ABG pH 7.494 H POC ABG pCO2 48.1 H POC ABG pO2 Sodium Potassium Chloride Carbon Dioxide BUN Creatinine Glucose POC Glucose Lactic Acid 2.30 H* Calcium AST 300 H ALT 561 H C-Reactive Protein Total Protein 4.5 L Albumin 2.4 L Salicylates Miscellaneous Test 11/26/17 11/26/17 11/26/17 03:26 03:26 03:52 WBC 12.7 H RBC Hgb 14.9 H Hct 45.9 H MCV 98 H MCH MCHC RDW 16.3 H Plt Count 137 L Lymph % (Auto) 10.0 L Wood % (Auto) Lymph # Wood # Eos # Seg Neutrophils % 82.7 H Seg Neuts % (Manual) Monocytes % (Manual) Nucleated RBC % Seg Neutrophils # 10.5 H Seg Neutrophils # Man Monocytes # (Manual) PT INR D-Dimer POC ABG pH 7.475 H POC ABG pCO2 POC ABG pO2 71 L Sodium 150 H Potassium 3.3 L Chloride Carbon Dioxide BUN 22 H Creatinine 1.7 H Glucose 107 H POC Glucose Lactic Acid Calcium 7.5 L AST ALT C-Reactive Protein Total Protein Albumin Salicylates Miscellaneous Test 11/26/17 11/26/17 11/26/17 11:49 17:53 23:56 WBC RBC Hgb Hct MCV MCH MCHC RDW Plt Count Lymph % (Auto) Wood % (Auto) Lymph # Wood # Eos # Seg Neutrophils % Seg Neuts % (Manual) Monocytes % (Manual) Nucleated RBC % Seg Neutrophils # Seg Neutrophils # Man Monocytes # (Manual) PT INR D-Dimer POC ABG pH POC ABG pCO2 POC ABG pO2 Sodium Potassium Chloride Carbon Dioxide BUN Creatinine Glucose POC Glucose 109 H 168 H 145 H Lactic Acid Calcium AST ALT C-Reactive Protein Total Protein Albumin Salicylates Miscellaneous Test 11/27/17 11/27/17 11/27/17 04:22 04:22 04:53 WBC 11.7 H RBC Hgb 15.7 H Hct 49.8 H MCV 100 H MCH MCHC RDW 16.4 H Plt Count 105 L Lymph % (Auto) 7.6 L Wood % (Auto) 8.7 H Lymph # 0.9 L Wood # 1.0 H Eos # Seg Neutrophils % 83.2 H Seg Neuts % (Manual) Monocytes % (Manual) Nucleated RBC % Seg Neutrophils # 9.7 H Seg Neutrophils # Man Monocytes # (Manual) PT INR D-Dimer POC ABG pH POC ABG pCO2 53.1 H POC ABG pO2 70 L Sodium 155 H Potassium Chloride 113.1 H Carbon Dioxide BUN Creatinine 1.5 H Glucose 128 H POC Glucose Lactic Acid Calcium 7.4 L AST ALT C-Reactive Protein Total Protein Albumin Salicylates Miscellaneous Test 11/27/17 11/27/17 11/27/17 05:34 11:27 16:18 WBC RBC Hgb Hct MCV MCH MCHC RDW Plt Count Lymph % (Auto) Wood % (Auto) Lymph # Wood # Eos # Seg Neutrophils % Seg Neuts % (Manual) Monocytes % (Manual) Nucleated RBC % Seg Neutrophils # Seg Neutrophils # Man Monocytes # (Manual) PT INR D-Dimer POC ABG pH POC ABG pCO2 POC ABG pO2 Sodium Potassium Chloride Carbon Dioxide BUN Creatinine Glucose POC Glucose 120 H 129 H Lactic Acid Calcium AST ALT C-Reactive Protein 13.70 H Total Protein Albumin Salicylates Miscellaneous Test 11/27/17 11/27/17 11/28/17 17:19 23:56 03:17 WBC 14.5 H RBC Hgb 15.2 H Hct 48.3 H MCV 99 H MCH MCHC RDW 16.5 H Plt Count 108 L Lymph % (Auto) 9.7 L Wood % (Auto) Lymph # Wood # 1.0 H Eos # Seg Neutrophils % 81.0 H Seg Neuts % (Manual) Monocytes % (Manual) Nucleated RBC % Seg Neutrophils # 11.8 H Seg Neutrophils # Man Monocytes # (Manual) PT INR D-Dimer POC ABG pH POC ABG pCO2 POC ABG pO2 Sodium Potassium Chloride Carbon Dioxide BUN Creatinine Glucose POC Glucose 138 H 125 H Lactic Acid Calcium AST ALT C-Reactive Protein Total Protein Albumin Salicylates Miscellaneous Test 11/28/17 11/28/17 11/28/17 03:17 05:34 06:46 WBC RBC Hgb Hct MCV MCH MCHC RDW Plt Count Lymph % (Auto) Wood % (Auto) Lymph # Wood # Eos # Seg Neutrophils % Seg Neuts % (Manual) Monocytes % (Manual) Nucleated RBC % Seg Neutrophils # Seg Neutrophils # Man Monocytes # (Manual) PT INR D-Dimer POC ABG pH 7.324 L POC ABG pCO2 63.4 H POC ABG pO2 65 L Sodium 150 H Potassium 3.4 L Chloride 107.9 H Carbon Dioxide 31 H BUN 19 H Creatinine 1.3 H Glucose 126 H POC Glucose 132 H Lactic Acid Calcium 7.7 L AST ALT C-Reactive Protein Total Protein Albumin Salicylates Miscellaneous Test 11/28/17 11/28/17 11/28/17 09:23 12:17 17:20 WBC RBC Hgb Hct MCV MCH MCHC RDW Plt Count Lymph % (Auto) Wood % (Auto) Lymph # Wood # Eos # Seg Neutrophils % Seg Neuts % (Manual) Monocytes % (Manual) Nucleated RBC % Seg Neutrophils # Seg Neutrophils # Man Monocytes # (Manual) PT INR D-Dimer POC ABG pH POC ABG pCO2 POC ABG pO2 Sodium Potassium Chloride Carbon Dioxide BUN Creatinine Glucose POC Glucose 142 H 136 H Lactic Acid Calcium AST ALT C-Reactive Protein Total Protein Albumin Salicylates Miscellaneous Test Flexitest 1 H 11/29/17 11/29/17 11/29/17 00:12 04:36 04:47 WBC 14.1 H RBC 5.32 H Hgb 16.4 H Hct 51.2 H MCV MCH MCHC RDW 15.8 H Plt Count 77 L Lymph % (Auto) 7.6 L Wood % (Auto) Lymph # 1.1 L Wood # 0.9 H Eos # 0.5 H Seg Neutrophils % 81.5 H Seg Neuts % (Manual) Monocytes % (Manual) Nucleated RBC % Seg Neutrophils # 11.5 H Seg Neutrophils # Man Monocytes # (Manual) PT INR D-Dimer POC ABG pH POC ABG pCO2 POC ABG pO2 61 L Sodium Potassium Chloride Carbon Dioxide BUN Creatinine Glucose POC Glucose 119 H Lactic Acid Calcium AST ALT C-Reactive Protein Total Protein Albumin Salicylates Miscellaneous Test 11/29/17 11/29/17 11/29/17 04:47 05:29 11:48 WBC RBC Hgb Hct MCV MCH MCHC RDW Plt Count Lymph % (Auto) Wood % (Auto) Lymph # Wood # Eos # Seg Neutrophils % Seg Neuts % (Manual) Monocytes % (Manual) Nucleated RBC % Seg Neutrophils # Seg Neutrophils # Man Monocytes # (Manual) PT INR D-Dimer POC ABG pH POC ABG pCO2 POC ABG pO2 Sodium Potassium Chloride Carbon Dioxide BUN 18 H Creatinine Glucose 119 H POC Glucose 128 H 128 H Lactic Acid Calcium 8.2 L AST ALT C-Reactive Protein Total Protein Albumin Salicylates Miscellaneous Test 11/29/17 11/29/17 11/30/17 17:32 17:39 03:48 WBC 13.5 H RBC Hgb 15.4 H Hct 47.2 H MCV MCH MCHC RDW 16.3 H Plt Count Lymph % (Auto) 10.5 L Wood % (Auto) 7.7 H Lymph # Wood # 1.0 H Eos # 0.5 H Seg Neutrophils % 76.8 H Seg Neuts % (Manual) Monocytes % (Manual) Nucleated RBC % Seg Neutrophils # 10.4 H Seg Neutrophils # Man Monocytes # (Manual) PT INR D-Dimer POC ABG pH POC ABG pCO2 51.6 H POC ABG pO2 345 H Sodium Potassium Chloride Carbon Dioxide BUN Creatinine Glucose POC Glucose 124 H Lactic Acid Calcium AST ALT C-Reactive Protein Total Protein Albumin Salicylates Miscellaneous Test 11/30/17 11/30/17 11/30/17 03:48 03:52 23:37 WBC RBC Hgb Hct MCV MCH MCHC RDW Plt Count Lymph % (Auto) Wood % (Auto) Lymph # Wood # Eos # Seg Neutrophils % Seg Neuts % (Manual) Monocytes % (Manual) Nucleated RBC % Seg Neutrophils # Seg Neutrophils # Man Monocytes # (Manual) PT INR D-Dimer POC ABG pH 7.503 H POC ABG pCO2 POC ABG pO2 65 L Sodium Potassium Chloride Carbon Dioxide BUN Creatinine Glucose 121 H POC Glucose 140 H Lactic Acid Calcium 7.6 L AST ALT C-Reactive Protein Total Protein Albumin Salicylates Miscellaneous Test 12/01/17 12/01/17 12/01/17 03:17 05:30 12:37 WBC RBC Hgb Hct MCV MCH MCHC RDW Plt Count Lymph % (Auto) Wood % (Auto) Lymph # Wood # Eos # Seg Neutrophils % Seg Neuts % (Manual) Monocytes % (Manual) Nucleated RBC % Seg Neutrophils # Seg Neutrophils # Man Monocytes # (Manual) PT INR D-Dimer POC ABG pH POC ABG pCO2 52.7 H POC ABG pO2 64 L Sodium Potassium Chloride Carbon Dioxide BUN Creatinine Glucose POC Glucose 171 H 175 H Lactic Acid Calcium AST ALT C-Reactive Protein Total Protein Albumin Salicylates Miscellaneous Test 12/01/17 12/02/17 12/02/17 17:41 00:01 03:17 WBC RBC Hgb Hct MCV MCH MCHC RDW Plt Count Lymph % (Auto) Wood % (Auto) Lymph # Wood # Eos # Seg Neutrophils % Seg Neuts % (Manual) Monocytes % (Manual) Nucleated RBC % Seg Neutrophils # Seg Neutrophils # Man Monocytes # (Manual) PT INR D-Dimer POC ABG pH POC ABG pCO2 51.5 H POC ABG pO2 67 L Sodium Potassium Chloride Carbon Dioxide BUN Creatinine Glucose POC Glucose 165 H 184 H Lactic Acid Calcium AST ALT C-Reactive Protein Total Protein Albumin Salicylates Miscellaneous Test 12/02/17 12/02/17 05:54 11:44 WBC RBC Hgb Hct MCV MCH MCHC RDW Plt Count Lymph % (Auto) Wood % (Auto) Lymph # Wood # Eos # Seg Neutrophils % Seg Neuts % (Manual) Monocytes % (Manual) Nucleated RBC % Seg Neutrophils # Seg Neutrophils # Man Monocytes # (Manual) PT INR D-Dimer POC ABG pH POC ABG pCO2 POC ABG pO2 Sodium Potassium Chloride Carbon Dioxide BUN Creatinine Glucose POC Glucose 208 H 175 H Lactic Acid Calcium AST ALT C-Reactive Protein Total Protein Albumin Salicylates Miscellaneous Test
--- NOTE | 2017-12-02 15:17 | Progress Note ---
Assessment and Plan Assessment and plan: S/p cardiopulmonary arrest. Etiology likely secondary to respiratory arrest. - Anoxic encephalopathy; EEG showed no cortical activity - Patient breathing over the vent, repeat EEG showed no cortical activity - Neurology consulted Anoxic brain injury: CT and MRI suggest anoxic brain injury COPD Sepsis: ID consulted and on IV antibiotics Hypernatremia Possible complex partial seizures with secondary generalization. Acute hypercapneic resp failure. Have discussed with her younger brother, about the prognosis and waiting family members to make decisions History Interval history: Patient was seen and evaluated this morning, patient is intubated and on mechanical ventilation, patient is comatose despite off sedation. Hospitalist Physical - Physical exam Narrative exam: Intubated and mechanical ventilation.. The patient appeared well nourished and normally developed. Vital signs as documented. Head exam is unremarkable. No scleral icterus . Neck is without jugular venous distension, thyromegaly, or carotid bruits. Lungs are clear to auscultation. Cardiac exam reveals regular rate and Rhythm. First and second heart sounds normal. No murmurs, rubs or gallops. Abdominal exam reveals normal bowel sounds, no masses, no organomegaly and no aortic enlargement. Extremities are nonedematous and both femoral and pedal pulses are normal. 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 - Constitutional Vitals: Temp Pulse Resp BP Pulse Ox 100.1 F H 95 H 17 159/81 92 12/02/17 12:00 12/02/17 14:31 12/02/17 14:31 12/02/17 14:31 12/02/17 14:31 General appearance: Present: no acute distress, other (on mech vent, orally intubated) Results - Labs CBC & Chem 7: 11/30/17 03:48 11/30/17 03:48 Labs: Laboratory Last Values WBC 13.5 K/mm3 (4.5-11.0) H 11/30/17 03:48 RBC 4.91 M/mm3 (3.65-5.03) 11/30/17 03:48 Hgb 15.4 gm/dl (10.1-14.3) H 11/30/17 03:48 Hct 47.2 % (30.3-42.9) H 11/30/17 03:48 MCV 96 fl (79-97) 11/30/17 03:48 MCH 31 pg (28-32) 11/30/17 03:48 MCHC 33 % (30-34) 11/30/17 03:48 RDW 16.3 % (13.2-15.2) H 11/30/17 03:48 Plt Count 166 K/mm3 (140-440) D 11/30/17 03:48 Lymph % (Auto) 10.5 % (13.4-35.0) L 11/30/17 03:48 [place]ancock % (Auto) 7.7 % (0.0-7.3) H 11/30/17 03:48 Eos % (Auto) 4.0 % (0.0-4.3) 11/30/17 03:48 Baso % (Auto) 1.0 % (0.0-1.8) 11/30/17 03:48 Lymph # 1.4 K/mm3 (1.2-5.4) 11/30/17 03:48 Hancock # 1.0 K/mm3 (0.0-0.8) H 11/30/17 03:48 Eos # 0.5 K/mm3 (0.0-0.4) H 11/30/17 03:48 Baso # 0.1 K/mm3 (0.0-0.1) 11/30/17 03:48 Add Manual Diff Complete 11/23/17 12:44 Total Counted 100 11/23/17 12:44 Seg Neutrophils % 76.8 % (40.0-70.0) H 11/30/17 03:48 Seg Neuts % (Manual) 71.0 % (40.0-70.0) H 11/23/17 12:44 Band Neutrophils % 3.0 % 11/23/17 12:44 Lymphocytes % (Manual) 18.0 % (13.4-35.0) 11/23/17 12:44 Reactive Lymphs % (Man) 0 % 11/23/17 12:44 Monocytes % (Manual) 8.0 % (0.0-7.3) H 11/23/17 12:44 Eosinophils % (Manual) 0 % (0.0-4.3) 11/23/17 12:44 Basophils % (Manual) 0 % (0.0-1.8) 11/23/17 12:44 Metamyelocytes % 0 % 11/23/17 12:44 Myelocytes % 0 % 11/23/17 12:44 Promyelocytes % 0 % 11/23/17 12:44 Blast Cells % 0 % 11/23/17 12:44 Nucleated RBC % 6.0 % (0.0-0.9) H 11/23/17 12:44 Seg Neutrophils # 10.4 K/mm3 (1.8-7.7) H 11/30/17 03:48 Seg Neutrophils # Man 9.2 K/mm3 (1.8-7.7) H 11/23/17 12:44 Band Neutrophils # 0.4 K/mm3 11/23/17 12:44 Lymphocytes # (Manual) 2.3 K/mm3 (1.2-5.4) 11/23/17 12:44 Abs React Lymphs (Man) 0.0 K/mm3 11/23/17 12:44 Monocytes # (Manual) 1.0 K/mm3 (0.0-0.8) H 11/23/17 12:44 Eosinophils # (Manual) 0.0 K/mm3 (0.0-0.4) 11/23/17 12:44 Basophils # (Manual) 0.0 K/mm3 (0.0-0.1) 11/23/17 12:44 Metamyelocytes # 0.0 K/mm3 11/23/17 12:44 Myelocytes # 0.0 K/mm3 11/23/17 12:44 Promyelocytes # 0.0 K/mm3 11/23/17 12:44 Blast Cells # 0.0 K/mm3 11/23/17 12:44 WBC Morphology Not Reportable 11/23/17 12:44 Hypersegmented Neuts Not Reportable 11/23/17 12:44 Hyposegmented Neuts Not Reportable 11/23/17 12:44 Hypogranular Neuts Not Reportable 11/23/17 12:44 Smudge Cells Not Reportable 11/23/17 12:44 Toxic Granulation Not Reportable 11/23/17 12:44 Toxic Vacuolation Not Reportable 11/23/17 12:44 Dohle Bodies Not Reportable 11/23/17 12:44 Pelger-Huet Anomaly Not Reportable 11/23/17 12:44 Erika Rods Not Reportable 11/23/17 12:44 Platelet Estimate Consistent w auto 11/23/17 12:44 Clumped Platelets Not Reportable 11/23/17 12:44 Plt Clumps, EDTA Not Reportable 11/23/17 12:44 Large Platelets Not Reportable 11/23/17 12:44 Giant Platelets Not Reportable 11/23/17 12:44 Platelet Satelliting Not Reportable 11/23/17 12:44 Plt Morphology Comment Not Reportable 11/23/17 12:44 RBC Morphology Not Reportable 11/23/17 12:44 Dimorphic RBCs Not Reportable 11/23/17 12:44 Polychromasia Rare 11/23/17 12:44 Hypochromasia Not Reportable 11/23/17 12:44 Poikilocytosis Not Reportable 11/23/17 12:44 Anisocytosis 1+ 11/23/17 12:44 Microcytosis Not Reportable 11/23/17 12:44 Macrocytosis 1+ 11/23/17 12:44 Spherocytes Not Reportable 11/23/17 12:44 Pappenheimer Bodies Not Reportable 11/23/17 12:44 Sickle Cells Not Reportable 11/23/17 12:44 Target Cells Not Reportable 11/23/17 12:44 Tear Drop Cells Not Reportable 11/23/17 12:44 Ovalocytes Not Reportable 11/23/17 12:44 Helmet Cells Not Reportable 11/23/17 12:44 Mart-Fulton Bodies Not Reportable 11/23/17 12:44 Philadelphia Rings Not Reportable 11/23/17 12:44 Valentino Cells Not Reportable 11/23/17 12:44 Bite Cells Not Reportable 11/23/17 12:44 Crenated Cell Not Reportable 11/23/17 12:44 Elliptocytes Not Reportable 11/23/17 12:44 Acanthocytes (Spur) Not Reportable 11/23/17 12:44 Rouleaux Not Reportable 11/23/17 12:44 Hemoglobin C Crystals Not Reportable 11/23/17 12:44 Schistocytes Not Reportable 11/23/17 12:44 Malaria parasites Not Reportable 11/23/17 12:44 Brett Bodies Not Reportable 11/23/17 12:44 Hem Pathologist Commnt No 11/23/17 12:44 PT 15.3 Sec. (12.2-14.9) H 11/23/17 12:44 INR 1.15 (0.87-1.13) H 11/23/17 12:44 APTT 33.9 Sec. (24.2-36.6) 11/23/17 12:44 D-Dimer 1977.37 ng/mlDDU (0-234) H 11/24/17 14:44 POC ABG pH 7.406 (7.35-7.45) 12/02/17 03:17 POC ABG pCO2 51.5 (35-45) H 12/02/17 03:17 POC ABG pO2 67 (80-105) L 12/02/17 03:17 POC ABG HCO3 32.4 12/02/17 03:17 POC ABG Total CO2 34 12/02/17 03:17 POC ABG O2 Sat 93 12/02/17 03:17 POC ABG Base Excess 8 12/02/17 03:17 FiO2 50 % 12/02/17 03:17 Sodium 143 mmol/L (137-145) 11/30/17 03:48 Potassium 3.7 mmol/L (3.6-5.0) 11/30/17 03:48 Chloride 104.1 mmol/L (98-107) 11/30/17 03:48 Carbon Dioxide 27 mmol/L (22-30) 11/30/17 03:48 Anion Gap 16 mmol/L 11/30/17 03:48 BUN 16 mg/dL (7-17) 11/30/17 03:48 Creatinine 1.2 mg/dL (0.7-1.2) 11/30/17 03:48 Estimated GFR 46 ml/min 11/30/17 03:48 BUN/Creatinine Ratio 13 % 11/30/17 03:48 Glucose 121 mg/dL (65-100) H 11/30/17 03:48 POC Glucose 175 (70-105) H 12/02/17 11:44 Lactic Acid 2.00 mmol/L (0.7-2.0) 11/25/17 10:25 Calcium 7.6 mg/dL (8.4-10.2) L 11/30/17 03:48 Magnesium 1.90 mg/dL (1.7-2.3) 11/28/17 03:17 Total Bilirubin 0.60 mg/dL (0.1-1.2) 11/25/17 03:02 Direct Bilirubin 0.2 mg/dL (0-0.2) 11/25/17 03:02 Indirect Bilirubin 0.4 mg/dL 11/25/17 03:02 AST 300 units/L (5-40) H 11/25/17 03:02 ALT 561 units/L (7-56) H 11/25/17 03:02 Alkaline Phosphatase 54 units/L (35-129) 11/25/17 03:02 Troponin T < 0.010 ng/mL (0.00-0.029) 11/23/17 12:44 C-Reactive Protein 13.70 mg/dL (0.00-1.30) H 11/27/17 16:18 Total Protein 4.5 g/dL (6.3-8.2) L 11/25/17 03:02 Albumin 2.4 g/dL (3.9-5) L 11/25/17 03:02 Albumin/Globulin Ratio 1.1 % 11/25/17 03:02 Urine Color Yellow (Yellow) 11/23/17 13:39 Urine Turbidity Clear (Clear) 11/23/17 13:39 Urine pH 5.0 (5.0-7.0) 11/23/17 13:39 Ur Specific [place] 1.020 (1.003-1.030) 11/23/17 13:39 Urine Protein 30 mg/dl mg/dL (Negative) 11/23/17 13:39 Urine Glucose (UA) Neg mg/dL (Negative) 11/23/17 13:39 Urine Ketones Neg mg/dL (Negative) 11/23/17 13:39 Urine Blood Neg (Negative) 11/23/17 13:39 Urine Nitrite Neg (Negative) 11/23/17 13:39 Urine Bilirubin Neg (Negative) 11/23/17 13:39 Urine Urobilinogen 2.0 mg/dL (<2.0) 11/23/17 13:39 Ur Leukocyte Esterase Neg (Negative) 11/23/17 13:39 Urine WBC (Auto) 5.0 /HPF (0.0-6.0) 11/23/17 13:39 Urine RBC (Auto) 1.0 /HPF (0.0-6.0) 11/23/17 13:39 U Epithel Cells (Auto) 1.0 /HPF (0-13.0) 11/23/17 13:39 Urine Bacteria (Auto) 1+ /HPF (Negative) 11/23/17 13:39 Hyaline Casts 11 /LPF 11/23/17 13:39 Urine Mucus 2+ /HPF 11/23/17 13:39 Salicylates < 0.3 mg/dL (2.8-20.0) L 11/23/17 15:54 Urine Opiates Screen Presumptive positive 11/23/17 13:39 Urine Methadone Screen Presumptive negative 11/23/17 13:39 Acetaminophen < 15.0 ug/mL (10.0-30.0) 11/23/17 15:54 Ur Barbiturates Screen Presumptive negative 11/23/17 13:39 Levetiracetam 30.0 mcg/mL 11/25/17 17:30 Ur Phencyclidine Scrn Presumptive negative 11/23/17 13:39 Ur Amphetamines Screen Presumptive negative 11/23/17 13:39 U Benzodiazepines Scrn Presumptive positive 11/23/17 13:39 Urine Cocaine Screen Presumptive negative 11/23/17 13:39 U Marijuana (THC) Screen Presumptive negative 11/23/17 13:39 Drugs of Abuse Note Disclamer 11/23/17 13:39 Miscellaneous Test Flexitest 1 H 11/28/17 09:23
--- NOTE | 2017-12-02 16:13 | Progress Note ---
Assessment and Plan Assessment: 1) Sepsis: fever trending down. Etiology most likely central fever +/- influenza +/- pneumonia. CRP=13. Procal=0.4 2) Post-cardiac arrest at home 3) Respiratory failure 6) Presumed LLL pneumonia: ? Aspiration pneumonia. Resp cx + Candace likely a colonizer 7) Encephalopathy / seizures: presumed anoxic brain injury 8) TAMARA 9) COPD 10 ) Elevated LFTs ? from sepsis 11) Alcohol and tobacco abuse Plan: -continue zosyn day 4 of 7 -stop tamiflu day 5 of 5 -check viral hepatitis panel - pending Guarded prognosis I will be covering the weekend Thank you for your consultation, will follow up with you. Kailey Torre MD Infectious Diseases Specialist [facility] [phone] [id number] [phone] Subjective Date of service: 12/02/17 Principal diagnosis: Acute Hypoxemic Resp Failure; S/P Cardiac Arrest; Acute Encephalopathy Interval history: Remains on the vent fio2 50% p 8, fever 100.1 no pressors Microbiology: Blood cultures: 11/24 neg 11/29 neg Urine cultures: 11/24 neg Respiratory cultures: 11/23 Candace labicans Current Antimicrobials: Zosyn 11/23 tamiflu Previous Antimicrobials: Vancomycin 11/23 Objective - Exam Narrative Exam: General appearance: sedated on the vent Eyes: anicteric sclerae, moist conjunctivae; no lid-lag; PERRLA HENT: Atraumatic; oropharynx +ETT Neck: Trachea midline; supple, no thyromegaly or lymphadenopathy Lungs: polo rhonchi and wheezing CV: tachy Abdomen: Soft, non-tender; no masses or hepatosplenomegaly Extremities: mild peripheral edema,+marked polo arm edema Skin: Normal temperature, turgor and texture; no rash, ulcers or subcutaneous nodules Psych: sedated. Neuro: sedated Lines: No CVL / PICC - Constitutional Vitals: Vital Signs Temp Pulse Resp BP Pulse Ox 100.1 F H 94 H 18 88/50 87 12/02/17 12:00 12/02/17 15:01 12/02/17 15:01 12/02/17 15:01 12/02/17 15:01 Temperature -Last 24 Hours Temperature 100.1 F Temperature 99.1 F Temperature 98.9 F Temperature 99.0 F Temperature 100.3 F - Labs CBC & Chem 7: 11/30/17 03:48 11/30/17 03:48 Labs: Abnormal lab results 12/01/17 12/02/17 12/02/17 Range/Units 17:41 00:01 03:17 POC ABG pCO2 51.5 H (35-45) POC ABG pO2 67 L (80-105) POC Glucose 165 H 184 H (70-105) 12/02/17 12/02/17 Range/Units 05:54 11:44 POC ABG pCO2 (35-45) POC ABG pO2 (80-105) POC Glucose 208 H 175 H (70-105)
[2017-12-03] MEDS: KEPPRA PO SCH ×5 (00:14→23:31)
[2017-12-03] MEDS: HEPARIN SUB-Q SCH ×3 (06:48→21:15)
[2017-12-03] MEDS: REGLAN PO SCH ×3 (06:48→21:15)
[2017-12-03] MEDS: DUONEB *Not for PRN Use IH SCH ×3 (08:06→21:48)
[2017-12-03] MEDS: PEPCID PO SCH ×2 (09:03→21:15)
--- NOTE | 2017-12-03 09:14 | Progress Note ---
Assessment and Plan Acute hypoxemic respiratory failure, on mechanical ventilatory support. Status post cardiac arrest. Likely aspiration pneumonia. Acute encephalopathy with myoclonic jerks Acute exacerbation of chronic obstructive pulmonary disease. h/o Nicotine dependence/Tobacco use disorder. Obesity. Hypertension. History of alcohol abuse - continue full MVS - Neurology notes reviewed, for repeat CT head and EEG in view of spontaneous respirations yesterday - continue aspiration precautions / address VAP bundle daily - continue bronchodilators and pulmonary hygiene - continue to wean oxygen for sats > 90% - NGT to LIS for now - continue GI & VTE prophylaxis - continue empiric antibiotics and follow C&S - continue other care per attending/ other consultants ....remains critically ill on MVS and at high risk for further deterioration including ..35' CCT Discussed with Neurology in detail, and patient's brother. we will need to have discussions with the son as to goals of care, since he is the POA. Disucssed with RT, RN and the team on interdisciplinary rounds. Subjective Date of service: 12/03/17 Principal diagnosis: Acute Hypoxemic Resp Failure; S/P Cardiac Arrest; Acute Encephalopathy Interval history: unresponsive following cardiopulmonary arrest, acute hypoxic respiratory failure, sepsis History of present illness per medical records: This 56-year-old right handed (per son) white female was admitted yesterday having last been normal 6 AM yesterday morning according to her roommate (per ER notes here). Her son states she may have been down for several hours before found again. EMS found her to be cold, pulseless and in asystole area they were unable to intubate her but eventually got accompanied to be in. They have difficulty getting an IV established until just prior to arriving at the ER and at that time she got 1 dose of epinephrine though was still pulseless and unresponsive at the ER with emesis filling the Combitube. Pupils were stated to be fixed and dilated with no withdrawal to pain. She was then intubated. She was given 1 dose of epinephrine and 1 of sodium bicarbonate during ACLS protocol. She had lactic acidosis of about 16, elevated liver enzymes and ABG showing respiratory acidosis. CT scan is read as normal but to me may be showing posterior effaced sulci. She was started on Keppra 750 mg IV every 12. She was noted to have some history of COPD and alcohol abuse. Her son has a bag of her medications from home including multiple inhalers (Combivent, Advair , Ventolin) as well as Mobic, Robitussin-DM generic syrup, and ipratropium dose apparently for nebulizer Patient was seen and examined. Vitals, labs, medications, chart, imaging was reviewed. No acute overnight events were reported. She remains orally intubated on mechanical ventilatory support. Discussed with RT and RN at the bedside Objective - Exam Narrative Exam: General appearance: sedated on the vent, ETT Eyes: anicteric sclerae, moist conjunctivae; HENT: Atraumatic; oropharynx +ETT Neck: Trachea midline; supple, no thyromegaly or lymphadenopathy Lungs: polo rhonchi and wheezing CV: tachy Abdomen: Soft, non-tender; no masses or hepatosplenomegaly Extremities: mild peripheral edema,+marked polo arm edema Skin: Normal temperature, turgor and texture; no rash, ulcers or subcutaneous nodules Vital Signs - 12hr 12/02/17 12/02/17 12/02/17 21:30 22:00 22:30 Temperature Pulse Rate 91 H 89 90 Pulse Rate [ Anterior Bilateral Throughout] Pulse Rate [ From Monitor] Respiratory 18 18 18 Rate Respiratory Rate [Anterior Bilateral Throughout] Blood Pressure 174/74 142/65 152/70 O2 Sat by Pulse 94 94 94 Oximetry 12/02/17 12/02/17 12/02/17 23:00 23:13 23:30 Temperature Pulse Rate 95 H 95 H 95 H Pulse Rate [ Anterior Bilateral Throughout] Pulse Rate [ From Monitor] Respiratory 19 23 20 Rate Respiratory Rate [Anterior Bilateral Throughout] Blood Pressure 177/78 177/78 163/79 O2 Sat by Pulse 94 93 92 Oximetry 12/03/17 12/03/17 12/03/17 00:00 00:13 00:30 Temperature 100.0 F H Pulse Rate 94 H 94 H 94 H Pulse Rate [ Anterior Bilateral Throughout] Pulse Rate [ From Monitor] Respiratory 17 21 Rate Respiratory Rate [Anterior Bilateral Throughout] Blood Pressure 166/74 106/74 173/77 O2 Sat by Pulse 91 91 91 Oximetry 12/03/17 12/03/17 12/03/17 01:00 01:31 02:01 Temperature Pulse Rate 95 H 95 H 96 H Pulse Rate [ Anterior Bilateral Throughout] Pulse Rate [ From Monitor] Respiratory 19 23 17 Rate Respiratory Rate [Anterior Bilateral Throughout] Blood Pressure 149/76 138/75 137/83 O2 Sat by Pulse 92 92 92 Oximetry 12/03/17 12/03/17 12/03/17 02:30 03:00 03:31 Temperature Pulse Rate 95 H 94 H 96 H Pulse Rate [ Anterior Bilateral Throughout] Pulse Rate [ From Monitor] Respiratory 18 18 19 Rate Respiratory Rate [Anterior Bilateral Throughout] Blood Pressure 158/74 148/72 145/79 O2 Sat by Pulse 92 93 93 Oximetry 12/03/17 12/03/17 12/03/17 04:00 04:31 04:49 Temperature 100 F H Pulse Rate 96 H 97 H 90 Pulse Rate [ Anterior Bilateral Throughout] Pulse Rate [ From Monitor] Respiratory 19 20 Rate Respiratory Rate [Anterior Bilateral Throughout] Blood Pressure 154/71 127/60 107/82 O2 Sat by Pulse 91 91 92 Oximetry 12/03/17 12/03/17 12/03/17 05:00 05:30 06:00 Temperature Pulse Rate 96 H 98 H 96 H Pulse Rate [ Anterior Bilateral Throughout] Pulse Rate [ From Monitor] Respiratory 18 18 18 Rate Respiratory Rate [Anterior Bilateral Throughout] Blood Pressure 141/70 187/80 130/67 O2 Sat by Pulse 91 92 91 Oximetry 12/03/17 12/03/17 12/03/17 06:30 07:01 07:30 Temperature Pulse Rate 96 H 95 H 95 H Pulse Rate [ Anterior Bilateral Throughout] Pulse Rate [ From Monitor] Respiratory 20 21 17 Rate Respiratory Rate [Anterior Bilateral Throughout] Blood Pressure 124/73 134/68 144/67 O2 Sat by Pulse 92 92 92 Oximetry 12/03/17 12/03/17 12/03/17 08:00 08:01 08:03 Temperature 98.8 F Pulse Rate 99 H 96 H Pulse Rate [ Anterior Bilateral Throughout] Pulse Rate [ From Monitor] Respiratory 18 Rate Respiratory Rate [Anterior Bilateral Throughout] Blood Pressure 156/72 156/72 O2 Sat by Pulse 98 97 Oximetry 12/03/17 12/03/17 12/03/17 08:05 08:07 08:17 Temperature Pulse Rate Pulse Rate [ 99 H 94 H Anterior Bilateral Throughout] Pulse Rate [ 99 H From Monitor] Respiratory 18 Rate Respiratory 20 18 Rate [Anterior Bilateral Throughout] Blood Pressure O2 Sat by Pulse 98 Oximetry Constitutional: appears uncomfortable, other (obtunded) Eyes: non-icteric ENT: oropharynx moist Neck: supple, no lymphadenopathy, no JVD, other (no thyromegaly) Effort: mildly labored Ascultation: Bilateral: diminished breath sounds, rhonchi Percussion: Bilateral: not dull Cardiovascular: regular rate and rhythm, other (no rubs or murmurs) Gastrointestinal: hypoactive bowel sounds, soft, non-tender, non-distended, other (no palapble HSM) Integumentary: normal Extremities: no cyanosis, pink and warm, pulses normal, edema Neurologic: pupils equal and round, unable to assess Psychiatric: other (unable to assess) CBC and BMP: 11/30/17 03:48 11/30/17 03:48 ABG, PT/INR, D-dimer: ABG POC ABG pH 7.423 (7.35-7.45) 12/03/17 05:59 POC ABG pCO2 53.1 (35-45) H 12/03/17 05:59 POC ABG pO2 60 (80-105) L 12/03/17 05:59 POC ABG HCO3 34.7 12/03/17 05:59 POC ABG Total CO2 36 12/03/17 05:59 POC ABG O2 Sat 91 12/03/17 05:59 PT/INR, D-dimer PT 15.3 Sec. (12.2-14.9) H 11/23/17 12:44 INR 1.15 (0.87-1.13) H 11/23/17 12:44 D-Dimer 1977.37 ng/mlDDU (0-234) H 11/24/17 14:44 Abnormal lab findings: Abnormal Labs 11/23/17 11/23/17 11/23/17 12:44 12:44 12:44 WBC 13.0 H RBC Hgb Hct 46.1 H MCV 112 H MCH 33 H MCHC 29 L RDW 18.5 H Plt Count Lymph % (Auto) Patrick % (Auto) Lymph # Patrick # Eos # Seg Neutrophils % Seg Neuts % (Manual) 71.0 H Monocytes % (Manual) 8.0 H Nucleated RBC % 6.0 H Seg Neutrophils # Seg Neutrophils # Man 9.2 H Monocytes # (Manual) 1.0 H PT 15.3 H INR 1.15 H D-Dimer POC ABG pH POC ABG pCO2 POC ABG pO2 Sodium Potassium 5.4 H Chloride 85.2 L Carbon Dioxide BUN 19 H Creatinine 1.3 H Glucose 175 H POC Glucose Lactic Acid Calcium AST 310 H ALT 262 H C-Reactive Protein Total Protein 5.7 L Albumin 2.9 L Salicylates Miscellaneous Test 11/23/17 11/23/17 11/23/17 12:44 13:23 15:54 WBC RBC Hgb Hct MCV MCH MCHC RDW Plt Count Lymph % (Auto) Patrick % (Auto) Lymph # Patrick # Eos # Seg Neutrophils % Seg Neuts % (Manual) Monocytes % (Manual) Nucleated RBC % Seg Neutrophils # Seg Neutrophils # Man Monocytes # (Manual) PT INR D-Dimer POC ABG pH 7.035 L POC ABG pCO2 99.1 H POC ABG pO2 343 H Sodium Potassium Chloride Carbon Dioxide BUN Creatinine Glucose POC Glucose Lactic Acid 16.10 H* Calcium AST ALT C-Reactive Protein Total Protein Albumin Salicylates < 0.3 L Miscellaneous Test 11/23/17 11/24/17 11/24/17 16:42 04:03 04:03 WBC 16.8 H RBC Hgb 15.7 H Hct 48.9 H MCV 101 H MCH MCHC RDW 16.5 H Plt Count Lymph % (Auto) 5.2 L Patrick % (Auto) Lymph # 0.9 L Patrick # 0.9 H Eos # Seg Neutrophils % 89.1 H Seg Neuts % (Manual) Monocytes % (Manual) Nucleated RBC % Seg Neutrophils # 14.9 H Seg Neutrophils # Man Monocytes # (Manual) PT INR D-Dimer POC ABG pH POC ABG pCO2 POC ABG pO2 55 L Sodium Potassium Chloride 96.0 L Carbon Dioxide 33 H D BUN 28 H Creatinine 1.5 H Glucose 108 H POC Glucose Lactic Acid Calcium 7.7 L AST 1091 H ALT 986 H C-Reactive Protein Total Protein 5.0 L Albumin 2.8 L Salicylates Miscellaneous Test 11/24/17 11/24/17 11/24/17 05:55 13:29 13:29 WBC RBC Hgb Hct MCV MCH MCHC RDW Plt Count Lymph % (Auto) Patrick % (Auto) Lymph # Patrick # Eos # Seg Neutrophils % Seg Neuts % (Manual) Monocytes % (Manual) Nucleated RBC % Seg Neutrophils # Seg Neutrophils # Man Monocytes # (Manual) PT INR D-Dimer POC ABG pH 7.469 H POC ABG pCO2 52.3 H POC ABG pO2 69 L Sodium Potassium Chloride Carbon Dioxide BUN Creatinine Glucose POC Glucose Lactic Acid 3.20 H* Calcium AST ALT C-Reactive Protein 9.20 H Total Protein Albumin Salicylates Miscellaneous Test 11/24/17 11/24/17 11/25/17 14:44 20:55 01:55 WBC RBC Hgb Hct MCV MCH MCHC RDW Plt Count Lymph % (Auto) Patrick % (Auto) Lymph # Patrick # Eos # Seg Neutrophils % Seg Neuts % (Manual) Monocytes % (Manual) Nucleated RBC % Seg Neutrophils # Seg Neutrophils # Man Monocytes # (Manual) PT INR D-Dimer 1977.37 H POC ABG pH 7.471 H POC ABG pCO2 56.2 H POC ABG pO2 Sodium Potassium Chloride Carbon Dioxide BUN Creatinine Glucose POC Glucose Lactic Acid 3.00 H* Calcium AST ALT C-Reactive Protein Total Protein Albumin Salicylates Miscellaneous Test 11/25/17 11/25/17 11/25/17 03:02 03:02 03:02 WBC 16.0 H RBC Hgb Hct MCV 99 H MCH MCHC RDW 16.0 H Plt Count Lymph % (Auto) 11.6 L Patrick % (Auto) Lymph # Patrick # 1.0 H Eos # Seg Neutrophils % 81.8 H Seg Neuts % (Manual) Monocytes % (Manual) Nucleated RBC % Seg Neutrophils # 13.1 H Seg Neutrophils # Man Monocytes # (Manual) PT INR D-Dimer POC ABG pH POC ABG pCO2 POC ABG pO2 Sodium 148 H Potassium Chloride Carbon Dioxide 35 H BUN 30 H Creatinine 1.9 H Glucose 106 H POC Glucose Lactic Acid 2.90 H* Calcium 7.0 L AST ALT C-Reactive Protein Total Protein Albumin Salicylates Miscellaneous Test 11/25/17 11/25/17 11/25/17 03:02 03:35 07:15 WBC RBC Hgb Hct MCV MCH MCHC RDW Plt Count Lymph % (Auto) Patrick % (Auto) Lymph # Patrick # Eos # Seg Neutrophils % Seg Neuts % (Manual) Monocytes % (Manual) Nucleated RBC % Seg Neutrophils # Seg Neutrophils # Man Monocytes # (Manual) PT INR D-Dimer POC ABG pH 7.494 H POC ABG pCO2 48.1 H POC ABG pO2 Sodium Potassium Chloride Carbon Dioxide BUN Creatinine Glucose POC Glucose Lactic Acid 2.30 H* Calcium AST 300 H ALT 561 H C-Reactive Protein Total Protein 4.5 L Albumin 2.4 L Salicylates Miscellaneous Test 11/26/17 11/26/17 11/26/17 03:26 03:26 03:52 WBC 12.7 H RBC Hgb 14.9 H Hct 45.9 H MCV 98 H MCH MCHC RDW 16.3 H Plt Count 137 L Lymph % (Auto) 10.0 L Patrick % (Auto) Lymph # Patrick # Eos # Seg Neutrophils % 82.7 H Seg Neuts % (Manual) Monocytes % (Manual) Nucleated RBC % Seg Neutrophils # 10.5 H Seg Neutrophils # Man Monocytes # (Manual) PT INR D-Dimer POC ABG pH 7.475 H POC ABG pCO2 POC ABG pO2 71 L Sodium 150 H Potassium 3.3 L Chloride Carbon Dioxide BUN 22 H Creatinine 1.7 H Glucose 107 H POC Glucose Lactic Acid Calcium 7.5 L AST ALT C-Reactive Protein Total Protein Albumin Salicylates Miscellaneous Test 11/26/17 11/26/17 11/26/17 11:49 17:53 23:56 WBC RBC Hgb Hct MCV MCH MCHC RDW Plt Count Lymph % (Auto) Patrick % (Auto) Lymph # Patrick # Eos # Seg Neutrophils % Seg Neuts % (Manual) Monocytes % (Manual) Nucleated RBC % Seg Neutrophils # Seg Neutrophils # Man Monocytes # (Manual) PT INR D-Dimer POC ABG pH POC ABG pCO2 POC ABG pO2 Sodium Potassium Chloride Carbon Dioxide BUN Creatinine Glucose POC Glucose 109 H 168 H 145 H Lactic Acid Calcium AST ALT C-Reactive Protein Total Protein Albumin Salicylates Miscellaneous Test 11/27/17 11/27/17 11/27/17 04:22 04:22 04:53 WBC 11.7 H RBC Hgb 15.7 H Hct 49.8 H MCV 100 H MCH MCHC RDW 16.4 H Plt Count 105 L Lymph % (Auto) 7.6 L Patrick % (Auto) 8.7 H Lymph # 0.9 L Patrick # 1.0 H Eos # Seg Neutrophils % 83.2 H Seg Neuts % (Manual) Monocytes % (Manual) Nucleated RBC % Seg Neutrophils # 9.7 H Seg Neutrophils # Man Monocytes # (Manual) PT INR D-Dimer POC ABG pH POC ABG pCO2 53.1 H POC ABG pO2 70 L Sodium 155 H Potassium Chloride 113.1 H Carbon Dioxide BUN Creatinine 1.5 H Glucose 128 H POC Glucose Lactic Acid Calcium 7.4 L AST ALT C-Reactive Protein Total Protein Albumin Salicylates Miscellaneous Test 11/27/17 11/27/17 11/27/17 05:34 11:27 16:18 WBC RBC Hgb Hct MCV MCH MCHC RDW Plt Count Lymph % (Auto) Patrick % (Auto) Lymph # Patrick # Eos # Seg Neutrophils % Seg Neuts % (Manual) Monocytes % (Manual) Nucleated RBC % Seg Neutrophils # Seg Neutrophils # Man Monocytes # (Manual) PT INR D-Dimer POC ABG pH POC ABG pCO2 POC ABG pO2 Sodium Potassium Chloride Carbon Dioxide BUN Creatinine Glucose POC Glucose 120 H 129 H Lactic Acid Calcium AST ALT C-Reactive Protein 13.70 H Total Protein Albumin Salicylates Miscellaneous Test 11/27/17 11/27/17 11/28/17 17:19 23:56 03:17 WBC 14.5 H RBC Hgb 15.2 H Hct 48.3 H MCV 99 H MCH MCHC RDW 16.5 H Plt Count 108 L Lymph % (Auto) 9.7 L Patrick % (Auto) Lymph # Patrick # 1.0 H Eos # Seg Neutrophils % 81.0 H Seg Neuts % (Manual) Monocytes % (Manual) Nucleated RBC % Seg Neutrophils # 11.8 H Seg Neutrophils # Man Monocytes # (Manual) PT INR D-Dimer POC ABG pH POC ABG pCO2 POC ABG pO2 Sodium Potassium Chloride Carbon Dioxide BUN Creatinine Glucose POC Glucose 138 H 125 H Lactic Acid Calcium AST ALT C-Reactive Protein Total Protein Albumin Salicylates Miscellaneous Test 11/28/17 11/28/17 11/28/17 03:17 05:34 06:46 WBC RBC Hgb Hct MCV MCH MCHC RDW Plt Count Lymph % (Auto) Patrick % (Auto) Lymph # Patrick # Eos # Seg Neutrophils % Seg Neuts % (Manual) Monocytes % (Manual) Nucleated RBC % Seg Neutrophils # Seg Neutrophils # Man Monocytes # (Manual) PT INR D-Dimer POC ABG pH 7.324 L POC ABG pCO2 63.4 H POC ABG pO2 65 L Sodium 150 H Potassium 3.4 L Chloride 107.9 H Carbon Dioxide 31 H BUN 19 H Creatinine 1.3 H Glucose 126 H POC Glucose 132 H Lactic Acid Calcium 7.7 L AST ALT C-Reactive Protein Total Protein Albumin Salicylates Miscellaneous Test 11/28/17 11/28/17 11/28/17 09:23 12:17 17:20 WBC RBC Hgb Hct MCV MCH MCHC RDW Plt Count Lymph % (Auto) Patrick % (Auto) Lymph # Patrick # Eos # Seg Neutrophils % Seg Neuts % (Manual) Monocytes % (Manual) Nucleated RBC % Seg Neutrophils # Seg Neutrophils # Man Monocytes # (Manual) PT INR D-Dimer POC ABG pH POC ABG pCO2 POC ABG pO2 Sodium Potassium Chloride Carbon Dioxide BUN Creatinine Glucose POC Glucose 142 H 136 H Lactic Acid Calcium AST ALT C-Reactive Protein Total Protein Albumin Salicylates Miscellaneous Test Flexitest 1 H 11/29/17 11/29/17 11/29/17 00:12 04:36 04:47 WBC 14.1 H RBC 5.32 H Hgb 16.4 H Hct 51.2 H MCV MCH MCHC RDW 15.8 H Plt Count 77 L Lymph % (Auto) 7.6 L Patrick % (Auto) Lymph # 1.1 L Patrick # 0.9 H Eos # 0.5 H Seg Neutrophils % 81.5 H Seg Neuts % (Manual) Monocytes % (Manual) Nucleated RBC % Seg Neutrophils # 11.5 H Seg Neutrophils # Man Monocytes # (Manual) PT INR D-Dimer POC ABG pH POC ABG pCO2 POC ABG pO2 61 L Sodium Potassium Chloride Carbon Dioxide BUN Creatinine Glucose POC Glucose 119 H Lactic Acid Calcium AST ALT C-Reactive Protein Total Protein Albumin Salicylates Miscellaneous Test 11/29/17 11/29/17 11/29/17 04:47 05:29 11:48 WBC RBC Hgb Hct MCV MCH MCHC RDW Plt Count Lymph % (Auto) Patrick % (Auto) Lymph # Patrick # Eos # Seg Neutrophils % Seg Neuts % (Manual) Monocytes % (Manual) Nucleated RBC % Seg Neutrophils # Seg Neutrophils # Man Monocytes # (Manual) PT INR D-Dimer POC ABG pH POC ABG pCO2 POC ABG pO2 Sodium Potassium Chloride Carbon Dioxide BUN 18 H Creatinine Glucose 119 H POC Glucose 128 H 128 H Lactic Acid Calcium 8.2 L AST ALT C-Reactive Protein Total Protein Albumin Salicylates Miscellaneous Test 11/29/17 11/29/17 11/30/17 17:32 17:39 03:48 WBC 13.5 H RBC Hgb 15.4 H Hct 47.2 H MCV MCH MCHC RDW 16.3 H Plt Count Lymph % (Auto) 10.5 L Patrick % (Auto) 7.7 H Lymph # Patrick # 1.0 H Eos # 0.5 H Seg Neutrophils % 76.8 H Seg Neuts % (Manual) Monocytes % (Manual) Nucleated RBC % Seg Neutrophils # 10.4 H Seg Neutrophils # Man Monocytes # (Manual) PT INR D-Dimer POC ABG pH POC ABG pCO2 51.6 H POC ABG pO2 345 H Sodium Potassium Chloride Carbon Dioxide BUN Creatinine Glucose POC Glucose 124 H Lactic Acid Calcium AST ALT C-Reactive Protein Total Protein Albumin Salicylates Miscellaneous Test 11/30/17 11/30/17 11/30/17 03:48 03:52 23:37 WBC RBC Hgb Hct MCV MCH MCHC RDW Plt Count Lymph % (Auto) Patrick % (Auto) Lymph # Patrick # Eos # Seg Neutrophils % Seg Neuts % (Manual) Monocytes % (Manual) Nucleated RBC % Seg Neutrophils # Seg Neutrophils # Man Monocytes # (Manual) PT INR D-Dimer POC ABG pH 7.503 H POC ABG pCO2 POC ABG pO2 65 L Sodium Potassium Chloride Carbon Dioxide BUN Creatinine Glucose 121 H POC Glucose 140 H Lactic Acid Calcium 7.6 L AST ALT C-Reactive Protein Total Protein Albumin Salicylates Miscellaneous Test 12/01/17 12/01/17 12/01/17 03:17 05:30 12:37 WBC RBC Hgb Hct MCV MCH MCHC RDW Plt Count Lymph % (Auto) Patrick % (Auto) Lymph # Patrick # Eos # Seg Neutrophils % Seg Neuts % (Manual) Monocytes % (Manual) Nucleated RBC % Seg Neutrophils # Seg Neutrophils # Man Monocytes # (Manual) PT INR D-Dimer POC ABG pH POC ABG pCO2 52.7 H POC ABG pO2 64 L Sodium Potassium Chloride Carbon Dioxide BUN Creatinine Glucose POC Glucose 171 H 175 H Lactic Acid Calcium AST ALT C-Reactive Protein Total Protein Albumin Salicylates Miscellaneous Test 12/01/17 12/02/17 12/02/17 17:41 00:01 03:17 WBC RBC Hgb Hct MCV MCH MCHC RDW Plt Count Lymph % (Auto) Patrick % (Auto) Lymph # Patrick # Eos # Seg Neutrophils % Seg Neuts % (Manual) Monocytes % (Manual) Nucleated RBC % Seg Neutrophils # Seg Neutrophils # Man Monocytes # (Manual) PT INR D-Dimer POC ABG pH POC ABG pCO2 51.5 H POC ABG pO2 67 L Sodium Potassium Chloride Carbon Dioxide BUN Creatinine Glucose POC Glucose 165 H 184 H Lactic Acid Calcium AST ALT C-Reactive Protein Total Protein Albumin Salicylates Miscellaneous Test 12/02/17 12/02/17 12/02/17 05:54 11:44 18:04 WBC RBC Hgb Hct MCV MCH MCHC RDW Plt Count Lymph % (Auto) Patrick % (Auto) Lymph # Patrick # Eos # Seg Neutrophils % Seg Neuts % (Manual) Monocytes % (Manual) Nucleated RBC % Seg Neutrophils # Seg Neutrophils # Man Monocytes # (Manual) PT INR D-Dimer POC ABG pH POC ABG pCO2 POC ABG pO2 Sodium Potassium Chloride Carbon Dioxide BUN Creatinine Glucose POC Glucose 208 H 175 H 146 H Lactic Acid Calcium AST ALT C-Reactive Protein Total Protein Albumin Salicylates Miscellaneous Test 12/03/17 12/03/17 00:16 05:59 WBC RBC Hgb Hct MCV MCH MCHC RDW Plt Count Lymph % (Auto) Patrick % (Auto) Lymph # Patrick # Eos # Seg Neutrophils % Seg Neuts % (Manual) Monocytes % (Manual) Nucleated RBC % Seg Neutrophils # Seg Neutrophils # Man Monocytes # (Manual) PT INR D-Dimer POC ABG pH POC ABG pCO2 53.1 H POC ABG pO2 60 L Sodium Potassium Chloride Carbon Dioxide BUN Creatinine Glucose POC Glucose 135 H Lactic Acid Calcium AST ALT C-Reactive Protein Total Protein Albumin Salicylates Miscellaneous Test Allied health notes reviewed: nursing
--- NOTE | 2017-12-03 15:35 | Progress Note ---
Assessment and Plan Assessment and plan: S/p cardiopulmonary arrest. Etiology likely secondary to respiratory arrest. - Anoxic encephalopathy; EEG showed no cortical activity - Patient breathing over the vent, repeat EEG showed no cortical activity - Neurology consulted Anoxic brain injury: CT and MRI suggest anoxic brain injury COPD exacerbation Sepsis: ID consulted and on IV antibiotics Hypernatremia Possible complex partial seizures with secondary generalization. Acute hypercapneic resp failure. Have discussed with her younger brother, about the prognosis and waiting family members to make decisions, to withdraw care or to made AND. History Interval history: Patient was seen and evaluated this morning, patient is intubated and on mechanical ventilation, patient is comatose despite off sedation. Hospitalist Physical - Physical exam Narrative exam: Intubated and mechanical ventilation.. The patient appeared well nourished and normally developed. Vital signs as documented. Head exam is unremarkable. No scleral icterus . Neck is without jugular venous distension, thyromegaly, or carotid bruits. Lungs are clear to auscultation. Cardiac exam reveals regular rate and Rhythm. First and second heart sounds normal. No murmurs, rubs or gallops. Abdominal exam reveals normal bowel sounds, no masses, no organomegaly and no aortic enlargement. Extremities are nonedematous and both femoral and pedal pulses are normal. 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 - Constitutional Vitals: Temp Pulse Resp BP Pulse Ox 98.4 F 89 18 109/62 91 12/03/17 12:00 12/03/17 15:00 12/03/17 15:00 12/03/17 15:00 12/03/17 15:00 General appearance: Present: no acute distress, other [facility] Results - Labs CBC & Chem 7: 11/30/17 03:48 11/30/17 03:48 Labs: Laboratory Last Values WBC 13.5 K/mm3 (4.5-11.0) H 11/30/17 03:48 RBC 4.91 M/mm3 (3.65-5.03) 11/30/17 03:48 Hgb 15.4 gm/dl (10.1-14.3) H 11/30/17 03:48 Hct 47.2 % (30.3-42.9) H 11/30/17 03:48 MCV 96 fl (79-97) 11/30/17 03:48 MCH 31 pg (28-32) 11/30/17 03:48 MCHC 33 % (30-34) 11/30/17 03:48 RDW 16.3 % (13.2-15.2) H 11/30/17 03:48 Plt Count 166 K/mm3 (140-440) D 11/30/17 03:48 Lymph % (Auto) 10.5 % (13.4-35.0) L 11/30/17 03:48 [place] % (Auto) 7.7 % (0.0-7.3) H 11/30/17 03:48 Eos % (Auto) 4.0 % (0.0-4.3) 11/30/17 03:48 Baso % (Auto) 1.0 % (0.0-1.8) 11/30/17 03:48 Lymph # 1.4 K/mm3 (1.2-5.4) 11/30/17 03:48 [place] # 1.0 K/mm3 (0.0-0.8) H 11/30/17 03:48 Eos # 0.5 K/mm3 (0.0-0.4) H 11/30/17 03:48 Baso # 0.1 K/mm3 (0.0-0.1) 11/30/17 03:48 Add Manual Diff Complete 11/23/17 12:44 Total Counted 100 11/23/17 12:44 Seg Neutrophils % 76.8 % (40.0-70.0) H 11/30/17 03:48 Seg Neuts % (Manual) 71.0 % (40.0-70.0) H 11/23/17 12:44 Band Neutrophils % 3.0 % 11/23/17 12:44 Lymphocytes % (Manual) 18.0 % (13.4-35.0) 11/23/17 12:44 Reactive Lymphs % (Man) 0 % 11/23/17 12:44 Monocytes % (Manual) 8.0 % (0.0-7.3) H 11/23/17 12:44 Eosinophils % (Manual) 0 % (0.0-4.3) 11/23/17 12:44 Basophils % (Manual) 0 % (0.0-1.8) 11/23/17 12:44 Metamyelocytes % 0 % 11/23/17 12:44 Myelocytes % 0 % 11/23/17 12:44 Promyelocytes % 0 % 11/23/17 12:44 Blast Cells % 0 % 11/23/17 12:44 Nucleated RBC % 6.0 % (0.0-0.9) H 11/23/17 12:44 Seg Neutrophils # 10.4 K/mm3 (1.8-7.7) H 11/30/17 03:48 Seg Neutrophils # Man 9.2 K/mm3 (1.8-7.7) H 11/23/17 12:44 Band Neutrophils # 0.4 K/mm3 11/23/17 12:44 Lymphocytes # (Manual) 2.3 K/mm3 (1.2-5.4) 11/23/17 12:44 Abs React Lymphs (Man) 0.0 K/mm3 11/23/17 12:44 Monocytes # (Manual) 1.0 K/mm3 (0.0-0.8) H 11/23/17 12:44 Eosinophils # (Manual) 0.0 K/mm3 (0.0-0.4) 11/23/17 12:44 Basophils # (Manual) 0.0 K/mm3 (0.0-0.1) 11/23/17 12:44 Metamyelocytes # 0.0 K/mm3 11/23/17 12:44 Myelocytes # 0.0 K/mm3 11/23/17 12:44 Promyelocytes # 0.0 K/mm3 11/23/17 12:44 Blast Cells # 0.0 K/mm3 11/23/17 12:44 WBC Morphology Not Reportable 11/23/17 12:44 Hypersegmented Neuts Not Reportable 11/23/17 12:44 Hyposegmented Neuts Not Reportable 11/23/17 12:44 Hypogranular Neuts Not Reportable 11/23/17 12:44 Smudge Cells Not Reportable 11/23/17 12:44 Toxic Granulation Not Reportable 11/23/17 12:44 Toxic Vacuolation Not Reportable 11/23/17 12:44 Dohle Bodies Not Reportable 11/23/17 12:44 Pelger-Huet Anomaly Not Reportable 11/23/17 12:44 Erika Rods Not Reportable 11/23/17 12:44 Platelet Estimate Consistent w auto 11/23/17 12:44 Clumped Platelets Not Reportable 11/23/17 12:44 Plt Clumps, EDTA Not Reportable 11/23/17 12:44 Large Platelets Not Reportable 11/23/17 12:44 Giant Platelets Not Reportable 11/23/17 12:44 Platelet Satelliting Not Reportable 11/23/17 12:44 Plt Morphology Comment Not Reportable 11/23/17 12:44 RBC Morphology Not Reportable 11/23/17 12:44 Dimorphic RBCs Not Reportable 11/23/17 12:44 Polychromasia Rare 11/23/17 12:44 Hypochromasia Not Reportable 11/23/17 12:44 Poikilocytosis Not Reportable 11/23/17 12:44 Anisocytosis 1+ 11/23/17 12:44 Microcytosis Not Reportable 11/23/17 12:44 Macrocytosis 1+ 11/23/17 12:44 Spherocytes Not Reportable 11/23/17 12:44 Pappenheimer Bodies Not Reportable 11/23/17 12:44 Sickle Cells Not Reportable 11/23/17 12:44 Target Cells Not Reportable 11/23/17 12:44 Tear Drop Cells Not Reportable 11/23/17 12:44 Ovalocytes Not Reportable 11/23/17 12:44 Helmet Cells Not Reportable 11/23/17 12:44 Mart-[place] Bodies Not Reportable 11/23/17 12:44 [place] Rings Not Reportable 11/23/17 12:44 [place] Cells Not Reportable 11/23/17 12:44 Bite Cells Not Reportable 11/23/17 12:44 Crenated Cell Not Reportable 11/23/17 12:44 Elliptocytes Not Reportable 11/23/17 12:44 Acanthocytes (Spur) Not Reportable 11/23/17 12:44 Rouleaux Not Reportable 11/23/17 12:44 Hemoglobin C Crystals Not Reportable 11/23/17 12:44 Schistocytes Not Reportable 11/23/17 12:44 Malaria parasites Not Reportable 11/23/17 12:44 Brett Bodies Not Reportable 11/23/17 12:44 Hem Pathologist Commnt No 11/23/17 12:44 PT 15.3 Sec. (12.2-14.9) H 11/23/17 12:44 INR 1.15 (0.87-1.13) H 11/23/17 12:44 APTT 33.9 Sec. (24.2-36.6) 11/23/17 12:44 D-Dimer 1977.37 ng/mlDDU (0-234) H 11/24/17 14:44 POC ABG pH 7.423 (7.35-7.45) 12/03/17 05:59 POC ABG pCO2 53.1 (35-45) H 12/03/17 05:59 POC ABG pO2 60 (80-105) L 12/03/17 05:59 POC ABG HCO3 34.7 12/03/17 05:59 POC ABG Total CO2 36 12/03/17 05:59 POC ABG O2 Sat 91 12/03/17 05:59 POC ABG Base Excess 10 12/03/17 05:59 FiO2 45 % 12/03/17 05:59 Sodium 143 mmol/L (137-145) 11/30/17 03:48 Potassium 3.7 mmol/L (3.6-5.0) 11/30/17 03:48 Chloride 104.1 mmol/L (98-107) 11/30/17 03:48 Carbon Dioxide 27 mmol/L (22-30) 11/30/17 03:48 Anion Gap 16 mmol/L 11/30/17 03:48 BUN 16 mg/dL (7-17) 11/30/17 03:48 Creatinine 1.2 mg/dL (0.7-1.2) 11/30/17 03:48 Estimated GFR 46 ml/min 11/30/17 03:48 BUN/Creatinine Ratio 13 % 11/30/17 03:48 Glucose 121 mg/dL (65-100) H 11/30/17 03:48 POC Glucose 137 (70-105) H 12/03/17 12:09 Lactic Acid 2.00 mmol/L (0.7-2.0) 11/25/17 10:25 Calcium 7.6 mg/dL (8.4-10.2) L 11/30/17 03:48 Magnesium 1.90 mg/dL (1.7-2.3) 11/28/17 03:17 Total Bilirubin 0.60 mg/dL (0.1-1.2) 11/25/17 03:02 Direct Bilirubin 0.2 mg/dL (0-0.2) 11/25/17 03:02 Indirect Bilirubin 0.4 mg/dL 11/25/17 03:02 AST 300 units/L (5-40) H 11/25/17 03:02 ALT 561 units/L (7-56) H 11/25/17 03:02 Alkaline Phosphatase 54 units/L (35-129) 11/25/17 03:02 Troponin T < 0.010 ng/mL (0.00-0.029) 11/23/17 12:44 C-Reactive Protein 13.70 mg/dL (0.00-1.30) H 11/27/17 16:18 Total Protein 4.5 g/dL (6.3-8.2) L 11/25/17 03:02 Albumin 2.4 g/dL (3.9-5) L 11/25/17 03:02 Albumin/Globulin Ratio 1.1 % 11/25/17 03:02 Urine Color Yellow (Yellow) 11/23/17 13:39 Urine Turbidity Clear (Clear) 11/23/17 13:39 Urine pH 5.0 (5.0-7.0) 11/23/17 13:39 Ur Specific [place] 1.020 (1.003-1.030) 11/23/17 13:39 Urine Protein 30 mg/dl mg/dL (Negative) 11/23/17 13:39 Urine Glucose (UA) Neg mg/dL (Negative) 11/23/17 13:39 Urine Ketones Neg mg/dL (Negative) 11/23/17 13:39 Urine Blood Neg (Negative) 11/23/17 13:39 Urine Nitrite Neg (Negative) 11/23/17 13:39 Urine Bilirubin Neg (Negative) 11/23/17 13:39 Urine Urobilinogen 2.0 mg/dL (<2.0) 11/23/17 13:39 Ur Leukocyte Esterase Neg (Negative) 11/23/17 13:39 Urine WBC (Auto) 5.0 /HPF (0.0-6.0) 11/23/17 13:39 Urine RBC (Auto) 1.0 /HPF (0.0-6.0) 11/23/17 13:39 U Epithel Cells (Auto) 1.0 /HPF (0-13.0) 11/23/17 13:39 Urine Bacteria (Auto) 1+ /HPF (Negative) 11/23/17 13:39 Hyaline Casts 11 /LPF 11/23/17 13:39 Urine Mucus 2+ /HPF 11/23/17 13:39 Salicylates < 0.3 mg/dL (2.8-20.0) L 11/23/17 15:54 Urine Opiates Screen Presumptive positive 11/23/17 13:39 Urine Methadone Screen Presumptive negative 11/23/17 13:39 Acetaminophen < 15.0 ug/mL (10.0-30.0) 11/23/17 15:54 Ur Barbiturates Screen Presumptive negative 11/23/17 13:39 Levetiracetam 30.0 mcg/mL 11/25/17 17:30 Ur Phencyclidine Scrn Presumptive negative 11/23/17 13:39 Ur Amphetamines Screen Presumptive negative 11/23/17 13:39 U Benzodiazepines Scrn Presumptive positive 11/23/17 13:39 Urine Cocaine Screen Presumptive negative 11/23/17 13:39 U Marijuana (THC) Screen Presumptive negative 11/23/17 13:39 Drugs of Abuse Note Disclamer 11/23/17 13:39 Miscellaneous Test Flexitest 1 H 11/28/17 09:23
--- NOTE | 2017-12-03 16:47 | Progress Note ---
Assessment and Plan Assessment: 1) Sepsis: fever trending down. Etiology most likely central fever +/- influenza +/- pneumonia. CRP=13. Procal=0.4 2) Post-cardiac arrest at home 3) Respiratory failure 6) Presumed LLL pneumonia: ? Aspiration pneumonia. Resp cx + Candace likely a colonizer 7) Encephalopathy / seizures: presumed anoxic brain injury 8) TAMARA 9) COPD 10 ) Elevated LFTs ? from sepsis 11) Alcohol and tobacco abuse Plan: -completed zosyn 10 days and tamiflu 5 days yesterday Guarded prognosis I am signing off Thank you for your consultation, will follow up with you. Kailey Torre MD Infectious Diseases Specialist [facility] [id number] [phone] O [phone] Subjective Date of service: 12/03/17 Principal diagnosis: Acute Hypoxemic Resp Failure; S/P Cardiac Arrest; Acute Encephalopathy Interval history: Remains on the vent fio2 45% p 8, fever 100.1 no pressors Microbiology: Blood cultures: 11/24 neg 11/29 neg Urine cultures: 11/24 neg Respiratory cultures: 11/23 Candace labicans Current Antimicrobials: none Previous Antimicrobials: Vancomycin 11/23 Zosyn 2/ tamiflu Objective - Exam Narrative Exam: General appearance: sedated on the vent Eyes: anicteric sclerae, moist conjunctivae; no lid-lag; PERRLA HENT: Atraumatic; oropharynx +ETT Neck: Trachea midline; supple, no thyromegaly or lymphadenopathy Lungs: polo rhonchi and wheezing CV: tachy Abdomen: Soft, non-tender; no masses or hepatosplenomegaly Extremities: mild peripheral edema,+marked polo arm edema Skin: Normal temperature, turgor and texture; no rash, ulcers or subcutaneous nodules Psych: sedated. Neuro: sedated Lines: No CVL / PICC - Constitutional Vitals: Vital Signs Temp Pulse Resp BP Pulse Ox 98.4 F 88 18 124/67 96 12/03/17 12:00 12/03/17 16:29 12/03/17 15:36 12/03/17 16:29 12/03/17 16:29 Temperature -Last 24 Hours Temperature 98.4 F Temperature 98.8 F Temperature 100 F Temperature 100.0 F Temperature 97.8 F - Labs CBC & Chem 7: 11/30/17 03:48 02/14/18 03:48 Labs: Abnormal lab results 12/02/17 12/03/17 12/03/17 Range/Units 18:04 00:16 05:59 POC ABG pCO2 53.1 H (35-45) POC ABG pO2 60 L (80-105) POC Glucose 146 H 135 H (70-105) 12/03/17 Range/Units 12:09 POC ABG pCO2 (35-45) POC ABG pO2 (80-105) POC Glucose 137 H (70-105)
--- NOTE | 2017-12-03 18:51 | Event Note ---
renal function has normalized patient is nonoliguric We'll sign off the case please call if needed
[2017-12-03 20:14] LABS: Basophils # (Auto) 0.1 K/mm3 (0.0-0.1); Eosinophils # (Auto) 0.6 K/mm3 (0.0-0.4); Eosinophils % (Auto) 4.5 % (0.0-4.3); Hemoglobin 15.1 gm/dl (10.1-14.3); Lymphocytes # (Auto) 1.6 K/mm3 (1.2-5.4); Lymphocytes % (Auto) 11.6 % (13.4-35.0); Mean Corpuscular HGB Conc 32 % (30-34); Mean Corpuscular Hemoglobin 31 pg (28-32); Mean Corpuscular Volume 97 fl (79-97); Monocytes # (Auto) 0.8 K/mm3 (0.0-0.8); Monocytes % (Auto) 6.3 % (0.0-7.3); Platelet Count 396 K/mm3 (140-440); Red Blood Count 4.86 M/mm3 (3.65-5.03); Red Cell Distribution Width 15.8 % (13.2-15.2)
[2017-12-04] MEDS: HEPARIN SUB-Q SCH ×3 (05:12→21:28)
[2017-12-04] MEDS: KEPPRA PO SCH ×3 (05:13→23:02)
[2017-12-04] MEDS: REGLAN PO SCH ×3 (05:13→21:29)
[2017-12-04] MEDS: DUONEB *Not for PRN Use IH SCH ×3 (07:28→19:51)
[2017-12-04] MEDS: PEPCID PO SCH ×2 (10:06→21:29)
--- NOTE | 2017-12-04 11:39 | Progress Note ---
Assessment and Plan Assessment and plan: S/p cardiopulmonary arrest. Etiology likely secondary to respiratory arrest. - Anoxic encephalopathy; EEG showed no cortical activity - Patient breathing over the vent, repeat EEG showed no cortical activity - Neurology consulted Anoxic brain injury: CT and MRI suggest anoxic brain injury. No pupillary reflex. COPD exacerbation Sepsis: ID consulted and on IV antibiotics Hypernatremia Possible complex partial seizures with secondary generalization. Acute hypercapneic resp failure. Patient didn't breath over the vent. TAMARA - Resolved Have discussed with her younger brother, about the prognosis and waiting family members to make decisions, to withdraw care or to made AND. History Interval history: Patient was seen and evaluated this morning, patient is intubated and on mechanical ventilation, patient is comatose despite off sedation. Hospitalist Physical - Physical exam Narrative exam: Intubated and mechanical ventilation.. The patient appeared well nourished and normally developed. Vital signs as documented. Head exam is unremarkable. No scleral icterus . Neck is without jugular venous distension, thyromegaly, or carotid bruits. Lungs are clear to auscultation. Cardiac exam reveals regular rate and Rhythm. First and second heart sounds normal. No murmurs, rubs or gallops. Abdominal exam reveals normal bowel sounds, no masses, no organomegaly and no aortic enlargement. Extremities are nonedematous and both femoral and pedal pulses are normal. 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 - Constitutional Vitals: Temp Pulse Resp BP Pulse Ox 99.6 F 94 H 18 140/67 94 12/04/17 08:00 12/04/17 11:20 12/04/17 11:00 12/04/17 11:20 12/04/17 11:20 General appearance: Present: no acute distress, other (on [facility] vent, orally intubated) Results - Labs CBC & Chem 7: 12/03/17 20:02 11/30/17 03:48 Labs: Laboratory Last Values WBC 13.3 K/mm3 (4.5-11.0) H 12/03/17 20:02 RBC 4.86 M/mm3 (3.65-5.03) 12/03/17 20:02 Hgb 15.1 gm/dl (10.1-14.3) H 12/03/17 20:02 Hct 47.0 % (30.3-42.9) H 12/03/17 20:02 MCV 97 fl (79-97) 12/03/17 20:02 MCH 31 pg (28-32) 12/03/17 20:02 MCHC 32 % (30-34) 12/03/17 20:02 RDW 15.8 % (13.2-15.2) H 12/03/17 20:02 Plt Count 396 K/mm3 (140-440) 12/03/17 20:02 Lymph % (Auto) 11.6 % (13.4-35.0) L 12/03/17 20:02 [place] % (Auto) 6.3 % (0.0-7.3) 12/03/17 20:02 Eos % (Auto) 4.5 % (0.0-4.3) H 12/03/17 20:02 Baso % (Auto) 1.0 % (0.0-1.8) 12/03/17 20:02 Lymph # 1.6 K/mm3 (1.2-5.4) 12/03/17 20:02 [place] # 0.8 K/mm3 (0.0-0.8) 12/03/17 20:02 Eos # 0.6 K/mm3 (0.0-0.4) H 12/03/17 20:02 Baso # 0.1 K/mm3 (0.0-0.1) 12/03/17 20:02 Add Manual Diff Complete 11/23/17 12:44 Total Counted 100 11/23/17 12:44 Seg Neutrophils % 76.6 % (40.0-70.0) H 12/03/17 20:02 Seg Neuts % (Manual) 71.0 % (40.0-70.0) H 11/23/17 12:44 Band Neutrophils % 3.0 % 11/23/17 12:44 Lymphocytes % (Manual) 18.0 % (13.4-35.0) 11/23/17 12:44 Reactive Lymphs % (Man) 0 % 11/23/17 12:44 Monocytes % (Manual) 8.0 % (0.0-7.3) H 11/23/17 12:44 Eosinophils % (Manual) 0 % (0.0-4.3) 11/23/17 12:44 Basophils % (Manual) 0 % (0.0-1.8) 11/23/17 12:44 Metamyelocytes % 0 % 11/23/17 12:44 Myelocytes % 0 % 11/23/17 12:44 Promyelocytes % 0 % 11/23/17 12:44 Blast Cells % 0 % 11/23/17 12:44 Nucleated RBC % 6.0 % (0.0-0.9) H 11/23/17 12:44 Seg Neutrophils # 10.2 K/mm3 (1.8-7.7) H 12/03/17 20:02 Seg Neutrophils # Man 9.2 K/mm3 (1.8-7.7) H 11/23/17 12:44 Band Neutrophils # 0.4 K/mm3 11/23/17 12:44 Lymphocytes # (Manual) 2.3 K/mm3 (1.2-5.4) 11/23/17 12:44 Abs React Lymphs (Man) 0.0 K/mm3 11/23/17 12:44 Monocytes # (Manual) 1.0 K/mm3 (0.0-0.8) H 11/23/17 12:44 Eosinophils # (Manual) 0.0 K/mm3 (0.0-0.4) 11/23/17 12:44 Basophils # (Manual) 0.0 K/mm3 (0.0-0.1) 11/23/17 12:44 Metamyelocytes # 0.0 K/mm3 11/23/17 12:44 Myelocytes # 0.0 K/mm3 11/23/17 12:44 Promyelocytes # 0.0 K/mm3 11/23/17 12:44 Blast Cells # 0.0 K/mm3 11/23/17 12:44 WBC Morphology Not Reportable 11/23/17 12:44 Hypersegmented Neuts Not Reportable 11/23/17 12:44 Hyposegmented Neuts Not Reportable 11/23/17 12:44 Hypogranular Neuts Not Reportable 11/23/17 12:44 Smudge Cells Not Reportable 11/23/17 12:44 Toxic Granulation Not Reportable 11/23/17 12:44 Toxic Vacuolation Not Reportable 11/23/17 12:44 Dohle Bodies Not Reportable 11/23/17 12:44 Pelger-Huet Anomaly Not Reportable 11/23/17 12:44 Erika Rods Not Reportable 11/23/17 12:44 Platelet Estimate Consistent w auto 11/23/17 12:44 Clumped Platelets Not Reportable 11/23/17 12:44 Plt Clumps, EDTA Not Reportable 11/23/17 12:44 Large Platelets Not Reportable 11/23/17 12:44 Giant Platelets Not Reportable 11/23/17 12:44 Platelet Satelliting Not Reportable 11/23/17 12:44 Plt Morphology Comment Not Reportable 11/23/17 12:44 RBC Morphology Not Reportable 11/23/17 12:44 Dimorphic RBCs Not Reportable 11/23/17 12:44 Polychromasia Rare 11/23/17 12:44 Hypochromasia Not Reportable 11/23/17 12:44 Poikilocytosis Not Reportable 11/23/17 12:44 Anisocytosis 1+ 11/23/17 12:44 Microcytosis Not Reportable 11/23/17 12:44 Macrocytosis 1+ 11/23/17 12:44 Spherocytes Not Reportable 11/23/17 12:44 Pappenheimer Bodies Not Reportable 11/23/17 12:44 Sickle Cells Not Reportable 11/23/17 12:44 Target Cells Not Reportable 11/23/17 12:44 Tear Drop Cells Not Reportable 11/23/17 12:44 Ovalocytes Not Reportable 11/23/17 12:44 Helmet Cells Not Reportable 11/23/17 12:44 Mart-[place] Bodies Not Reportable 11/23/17 12:44 [place] Rings Not Reportable 11/23/17 12:44 [place] Cells Not Reportable 11/23/17 12:44 Bite Cells Not Reportable 11/23/17 12:44 Crenated Cell Not Reportable 11/23/17 12:44 Elliptocytes Not Reportable 11/23/17 12:44 Acanthocytes (Spur) Not Reportable 11/23/17 12:44 Rouleaux Not Reportable 11/23/17 12:44 Hemoglobin C Crystals Not Reportable 11/23/17 12:44 Schistocytes Not Reportable 11/23/17 12:44 Malaria parasites Not Reportable 11/23/17 12:44 Brett Bodies Not Reportable 11/23/17 12:44 Hem Pathologist Commnt No 02/07/18 12:44 PT 15.3 Sec. (12.2-14.9) H 11/23/17 12:44 INR 1.15 (0.87-1.13) H 11/23/17 12:44 APTT 33.9 Sec. (24.2-36.6) 11/23/17 12:44 D-Dimer 1977.37 ng/mlDDU (0-234) H 11/24/17 14:44 POC ABG pH 7.423 (7.35-7.45) 12/03/17 05:59 POC ABG pCO2 53.1 (35-45) H 12/03/17 05:59 POC ABG pO2 60 (80-105) L 12/03/17 05:59 POC ABG HCO3 34.7 12/03/17 05:59 POC ABG Total CO2 36 12/03/17 05:59 POC ABG O2 Sat 91 12/03/17 05:59 POC ABG Base Excess 10 12/03/17 05:59 FiO2 45 % 12/03/17 05:59 Sodium 143 mmol/L (137-145) 11/30/17 03:48 Potassium 3.7 mmol/L (3.6-5.0) 11/30/17 03:48 Chloride 104.1 mmol/L (98-107) 11/30/17 03:48 Carbon Dioxide 27 mmol/L (22-30) 11/30/17 03:48 Anion Gap 16 mmol/L 11/30/17 03:48 BUN 16 mg/dL (7-17) 11/30/17 03:48 Creatinine 1.2 mg/dL (0.7-1.2) 11/30/17 03:48 Estimated GFR 46 ml/min 11/30/17 03:48 BUN/Creatinine Ratio 13 % 11/30/17 03:48 Glucose 121 mg/dL (65-100) H 11/30/17 03:48 POC Glucose 163 (70-105) H 12/04/17 06:07 Lactic Acid 2.00 mmol/L (0.7-2.0) 11/25/17 10:25 Calcium 7.6 mg/dL (8.4-10.2) L 11/30/17 03:48 Magnesium 1.90 mg/dL (1.7-2.3) 11/28/17 03:17 Total Bilirubin 0.60 mg/dL (0.1-1.2) 11/25/17 03:02 Direct Bilirubin 0.2 mg/dL (0-0.2) 11/25/17 03:02 Indirect Bilirubin 0.4 mg/dL 11/25/17 03:02 AST 300 units/L (5-40) H 11/25/17 03:02 ALT 561 units/L (7-56) H 11/25/17 03:02 Alkaline Phosphatase 54 units/L (35-129) 11/25/17 03:02 Troponin T < 0.010 ng/mL (0.00-0.029) 11/23/17 12:44 C-Reactive Protein 13.70 mg/dL (0.00-1.30) H 11/27/17 16:18 Total Protein 4.5 g/dL (6.3-8.2) L 11/25/17 03:02 Albumin 2.4 g/dL (3.9-5) L 11/25/17 03:02 Albumin/Globulin Ratio 1.1 % 11/25/17 03:02 Urine Color Yellow (Yellow) 11/23/17 13:39 Urine Turbidity Clear (Clear) 11/23/17 13:39 Urine pH 5.0 (5.0-7.0) 11/23/17 13:39 Ur Specific [place] 1.020 (1.003-1.030) 11/23/17 13:39 Urine Protein 30 mg/dl mg/dL (Negative) 11/23/17 13:39 Urine Glucose (UA) Neg mg/dL (Negative) 11/23/17 13:39 Urine Ketones Neg mg/dL (Negative) 11/23/17 13:39 Urine Blood Neg (Negative) 11/23/17 13:39 Urine Nitrite Neg (Negative) 11/23/17 13:39 Urine Bilirubin Neg (Negative) 11/23/17 13:39 Urine Urobilinogen 2.0 mg/dL (<2.0) 11/23/17 13:39 Ur Leukocyte Esterase Neg (Negative) 11/23/17 13:39 Urine WBC (Auto) 5.0 /HPF (0.0-6.0) 11/23/17 13:39 Urine RBC (Auto) 1.0 /HPF (0.0-6.0) 11/23/17 13:39 U Epithel Cells (Auto) 1.0 /HPF (0-13.0) 11/23/17 13:39 Urine Bacteria (Auto) 1+ /HPF (Negative) 11/23/17 13:39 Hyaline Casts 11 /LPF 11/23/17 13:39 Urine Mucus 2+ /HPF 11/23/17 13:39 Salicylates < 0.3 mg/dL (2.8-20.0) L 11/23/17 15:54 Urine Opiates Screen Presumptive positive 11/23/17 13:39 Urine Methadone Screen Presumptive negative 11/23/17 13:39 Acetaminophen < 15.0 ug/mL (10.0-30.0) 11/23/17 15:54 Ur Barbiturates Screen Presumptive negative 11/23/17 13:39 Levetiracetam 30.0 mcg/mL 11/25/17 17:30 Ur Phencyclidine Scrn Presumptive negative 11/23/17 13:39 Ur Amphetamines Screen Presumptive negative 11/23/17 13:39 U Benzodiazepines Scrn Presumptive positive 11/23/17 13:39 Urine Cocaine Screen Presumptive negative 11/23/17 13:39 U Marijuana (THC) Screen Presumptive negative 11/23/17 13:39 Drugs of Abuse Note Disclamer 11/23/17 13:39 Miscellaneous Test Flexitest 1 H 11/28/17 09:23
[2017-12-04] MEDS: ATIVAN IV PRN (13:11)
--- NOTE | 2017-12-04 13:30 | Progress Note ---
Assessment and Plan Acute hypoxemic respiratory failure, on mechanical ventilatory support. Status post cardiac arrest. Likely aspiration pneumonia. Acute encephalopathy with myoclonic jerks Acute exacerbation of chronic obstructive pulmonary disease. h/o Nicotine dependence/Tobacco use disorder. Obesity. Hypertension. History of alcohol abuse - continue full MVS - Neurology notes reviewed, for repeat CT head and EEG in view of spontaneous respirations yesterday - continue aspiration precautions / address VAP bundle daily - continue bronchodilators and pulmonary hygiene - continue to wean oxygen for sats > 90% - NGT to LIS for now - continue GI & VTE prophylaxis - continue empiric antibiotics and follow C&S - continue other care per attending/ other consultants ....remains critically ill on MVS and at high risk for further deterioration including ..35' CCT Discussed with Neurology in detail, and patient's brother. we will need to have discussions with the son as to goals of care, since he is the POA. Disucssed with RT, RN and the team on interdisciplinary rounds. Subjective Date of service: 12/04/17 Principal diagnosis: Acute Hypoxemic Resp Failure; S/P Cardiac Arrest; Acute Encephalopathy Interval history: unresponsive following cardiopulmonary arrest, acute hypoxic respiratory failure, sepsis History of present illness per medical records: This 56-year-old right handed (per son) white female was admitted yesterday having last been normal 6 AM yesterday morning according to her roommate (per ER notes here). Her son states she may have been down for several hours before found again. EMS found her to be cold, pulseless and in asystole area they were unable to intubate her but eventually got accompanied to be in. They have difficulty getting an IV established until just prior to arriving at the ER and at that time she got 1 dose of epinephrine though was still pulseless and unresponsive at the ER with emesis filling the Combitube. Pupils were stated to be fixed and dilated with no withdrawal to pain. She was then intubated. She was given 1 dose of epinephrine and 1 of sodium bicarbonate during ACLS protocol. She had lactic acidosis of about 16, elevated liver enzymes and ABG showing respiratory acidosis. CT scan is read as normal but to me may be showing posterior effaced sulci. She was started on Keppra 750 mg IV every 12. She was noted to have some history of COPD and alcohol abuse. Her son has a bag of her medications from home including multiple inhalers (Combivent, Advair , Ventolin) as well as Mobic, Robitussin-DM generic syrup, and ipratropium dose apparently for nebulizer Patient was seen and examined. Vitals, labs, medications, chart, imaging was reviewed. No acute overnight events were reported. She remains orally intubated on mechanical ventilatory support. Discussed with RT and RN at the bedside Plan is for family to come in tomorrow, withdrawal of care/hospice Objective - Exam Narrative Exam: Intubated and mechanical ventilation.. The patient appeared well nourished and normally developed. Vital signs as documented. Head exam is unremarkable. No scleral icterus . Neck is without jugular venous distension, thyromegaly, or carotid bruits. Lungs are clear to auscultation. Cardiac exam reveals regular rate and Rhythm. First and second heart sounds normal. No murmurs, rubs or gallops. Abdominal exam reveals normal bowel sounds, no masses, no organomegaly and no aortic enlargement. Extremities are nonedematous and both femoral and pedal pulses are normal. [employer]: Deeply comatose. Vital Signs - 12hr 12/04/17 12/04/17 12/04/17 02:00 03:00 04:00 Temperature 98.8 F Pulse Rate 98 H 98 H 100 H Pulse Rate [ Anterior Bilateral Throughout] Pulse Rate [ 100 H From Monitor] Respiratory 18 18 19 Rate Respiratory Rate [Anterior Bilateral Throughout] Blood Pressure 146/64 134/65 157/68 O2 Sat by Pulse 92 92 92 Oximetry 12/04/17 12/04/17 12/04/17 05:00 06:00 07:00 Temperature Pulse Rate 100 H 99 H 97 H Pulse Rate [ Anterior Bilateral Throughout] Pulse Rate [ From Monitor] Respiratory 16 20 19 Rate Respiratory Rate [Anterior Bilateral Throughout] Blood Pressure 157/68 145/75 151/70 O2 Sat by Pulse 91 90 91 Oximetry 12/04/17 12/04/17 12/04/17 07:25 07:28 07:43 Temperature Pulse Rate 98 H Pulse Rate [ 98 H 95 H Anterior Bilateral Throughout] Pulse Rate [ From Monitor] Respiratory Rate Respiratory 19 18 Rate [Anterior Bilateral Throughout] Blood Pressure 151/70 O2 Sat by Pulse 92 Oximetry 12/04/17 12/04/17 12/04/17 08:00 09:00 10:00 Temperature 99.6 F Pulse Rate 93 H 91 H 90 Pulse Rate [ Anterior Bilateral Throughout] Pulse Rate [ From Monitor] Respiratory 18 18 18 Rate Respiratory Rate [Anterior Bilateral Throughout] Blood Pressure 124/63 114/64 130/67 O2 Sat by Pulse 91 91 92 Oximetry 12/04/17 12/04/17 11:00 11:20 Temperature Pulse Rate 89 94 H Pulse Rate [ Anterior Bilateral Throughout] Pulse Rate [ From Monitor] Respiratory 18 Rate Respiratory Rate [Anterior Bilateral Throughout] Blood Pressure 140/67 140/67 O2 Sat by Pulse 92 94 Oximetry Constitutional: appears uncomfortable, other (obtunded) Eyes: non-icteric ENT: oropharynx moist Neck: supple, no lymphadenopathy, no JVD, other (no thyromegaly) Effort: mildly labored Ascultation: Bilateral: diminished breath sounds, rhonchi Percussion: Bilateral: not dull Cardiovascular: regular rate and rhythm, other (no rubs or murmurs) Gastrointestinal: hypoactive bowel sounds, soft, non-tender, non-distended, other (no palapble HSM) Integumentary: normal Extremities: no cyanosis, pink and warm, pulses normal, edema Neurologic: pupils equal and round, unable to assess Psychiatric: other (unable to assess) CBC and BMP: 12/03/17 20:02 11/30/17 03:48 ABG, PT/INR, D-dimer: ABG POC ABG pH 7.423 (7.35-7.45) 12/03/17 05:59 POC ABG pCO2 53.1 (35-45) H 12/03/17 05:59 POC ABG pO2 60 (80-105) L 12/03/17 05:59 POC ABG HCO3 34.7 12/03/17 05:59 POC ABG Total CO2 36 12/03/17 05:59 POC ABG O2 Sat 91 12/03/17 05:59 PT/INR, D-dimer PT 15.3 Sec. (12.2-14.9) H 11/23/17 12:44 INR 1.15 (0.87-1.13) H 11/23/17 12:44 D-Dimer 1977.37 ng/mlDDU (0-234) H 11/24/17 14:44 Abnormal lab findings: Abnormal Labs 11/23/17 11/23/1718 12:44 12:44 12:44 WBC 13.0 H RBC Hgb Hct 46.1 H MCV 112 H MCH 33 H MCHC 29 L RDW 18.5 H Plt Count Lymph % (Auto) Drew % (Auto) Eos % (Auto) Lymph # Drew # Eos # Seg Neutrophils % Seg Neuts % (Manual) 71.0 H Monocytes % (Manual) 8.0 H Nucleated RBC % 6.0 H Seg Neutrophils # Seg Neutrophils # Man 9.2 H Monocytes # (Manual) 1.0 H PT 15.3 H INR 1.15 H D-Dimer POC ABG pH POC ABG pCO2 POC ABG pO2 Sodium Potassium 5.4 H Chloride 85.2 L Carbon Dioxide BUN 19 H Creatinine 1.3 H Glucose 175 H POC Glucose Lactic Acid Calcium AST 310 H ALT 262 H C-Reactive Protein Total Protein 5.7 L Albumin 2.9 L Salicylates Miscellaneous Test 11/23/17 11/23/17 11/23/17 12:44 13:23 15:54 WBC RBC Hgb Hct MCV MCH MCHC RDW Plt Count Lymph % (Auto) Drew % (Auto) Eos % (Auto) Lymph # Drew # Eos # Seg Neutrophils % Seg Neuts % (Manual) Monocytes % (Manual) Nucleated RBC % Seg Neutrophils # Seg Neutrophils # Man Monocytes # (Manual) PT INR D-Dimer POC ABG pH 7.035 L POC ABG pCO2 99.1 H POC ABG pO2 343 H Sodium Potassium Chloride Carbon Dioxide BUN Creatinine Glucose POC Glucose Lactic Acid 16.10 H* Calcium AST ALT C-Reactive Protein Total Protein Albumin Salicylates < 0.3 L Miscellaneous Test 11/23/17 11/24/17 11/24/17 16:42 04:03 04:03 WBC 16.8 H RBC Hgb 15.7 H Hct 48.9 H MCV 101 H MCH MCHC RDW 16.5 H Plt Count Lymph % (Auto) 5.2 L Drew % (Auto) Eos % (Auto) Lymph # 0.9 L Drew # 0.9 H Eos # Seg Neutrophils % 89.1 H Seg Neuts % (Manual) Monocytes % (Manual) Nucleated RBC % Seg Neutrophils # 14.9 H Seg Neutrophils # Man Monocytes # (Manual) PT INR D-Dimer POC ABG pH POC ABG pCO2 POC ABG pO2 55 L Sodium Potassium Chloride 96.0 L Carbon Dioxide 33 H D BUN 28 H Creatinine 1.5 H Glucose 108 H POC Glucose Lactic Acid Calcium 7.7 L AST 1091 H ALT 986 H C-Reactive Protein Total Protein 5.0 L Albumin 2.8 L Salicylates Miscellaneous Test 11/24/17 11/24/17 11/24/17 05:55 13:29 13:29 WBC RBC Hgb Hct MCV MCH MCHC RDW Plt Count Lymph % (Auto) Drew % (Auto) Eos % (Auto) Lymph # Drew # Eos # Seg Neutrophils % Seg Neuts % (Manual) Monocytes % (Manual) Nucleated RBC % Seg Neutrophils # Seg Neutrophils # Man Monocytes # (Manual) PT INR D-Dimer POC ABG pH 7.469 H POC ABG pCO2 52.3 H POC ABG pO2 69 L Sodium Potassium Chloride Carbon Dioxide BUN Creatinine Glucose POC Glucose Lactic Acid 3.20 H* Calcium AST ALT C-Reactive Protein 9.20 H Total Protein Albumin Salicylates Miscellaneous Test 11/24/17 11/24/17 11/25/17 14:44 20:55 01:55 WBC RBC Hgb Hct MCV MCH MCHC RDW Plt Count Lymph % (Auto) Drew % (Auto) Eos % (Auto) Lymph # Drew # Eos # Seg Neutrophils % Seg Neuts % (Manual) Monocytes % (Manual) Nucleated RBC % Seg Neutrophils # Seg Neutrophils # Man Monocytes # (Manual) PT INR D-Dimer 1977.37 H POC ABG pH 7.471 H POC ABG pCO2 56.2 H POC ABG pO2 Sodium Potassium Chloride Carbon Dioxide BUN Creatinine Glucose POC Glucose Lactic Acid 3.00 H* Calcium AST ALT C-Reactive Protein Total Protein Albumin Salicylates Miscellaneous Test 11/25/17 11/25/17 11/25/17 03:02 03:02 03:02 WBC 16.0 H RBC Hgb Hct MCV 99 H MCH MCHC RDW 16.0 H Plt Count Lymph % (Auto) 11.6 L Drew % (Auto) Eos % (Auto) Lymph # Drew # 1.0 H Eos # Seg Neutrophils % 81.8 H Seg Neuts % (Manual) Monocytes % (Manual) Nucleated RBC % Seg Neutrophils # 13.1 H Seg Neutrophils # Man Monocytes # (Manual) PT INR D-Dimer POC ABG pH POC ABG pCO2 POC ABG pO2 Sodium 148 H Potassium Chloride Carbon Dioxide 35 H BUN 30 H Creatinine 1.9 H Glucose 106 H POC Glucose Lactic Acid 2.90 H* Calcium 7.0 L AST ALT C-Reactive Protein Total Protein Albumin Salicylates Miscellaneous Test 11/25/17 11/25/17 11/25/17 03:02 03:35 07:15 WBC RBC Hgb Hct MCV MCH MCHC RDW Plt Count Lymph % (Auto) Drew % (Auto) Eos % (Auto) Lymph # Drew # Eos # Seg Neutrophils % Seg Neuts % (Manual) Monocytes % (Manual) Nucleated RBC % Seg Neutrophils # Seg Neutrophils # Man Monocytes # (Manual) PT INR D-Dimer POC ABG pH 7.494 H POC ABG pCO2 48.1 H POC ABG pO2 Sodium Potassium Chloride Carbon Dioxide BUN Creatinine Glucose POC Glucose Lactic Acid 2.30 H* Calcium AST 300 H ALT 561 H C-Reactive Protein Total Protein 4.5 L Albumin 2.4 L Salicylates Miscellaneous Test 11/26/17 11/26/17 11/26/17 03:26 03:26 03:52 WBC 12.7 H RBC Hgb 14.9 H Hct 45.9 H MCV 98 H MCH MCHC RDW 16.3 H Plt Count 137 L Lymph % (Auto) 10.0 L Drew % (Auto) Eos % (Auto) Lymph # Drew # Eos # Seg Neutrophils % 82.7 H Seg Neuts % (Manual) Monocytes % (Manual) Nucleated RBC % Seg Neutrophils # 10.5 H Seg Neutrophils # Man Monocytes # (Manual) PT INR D-Dimer POC ABG pH 7.475 H POC ABG pCO2 POC ABG pO2 71 L Sodium 150 H Potassium 3.3 L Chloride Carbon Dioxide BUN 22 H Creatinine 1.7 H Glucose 107 H POC Glucose Lactic Acid Calcium 7.5 L AST ALT C-Reactive Protein Total Protein Albumin Salicylates Miscellaneous Test 11/26/17 11/26/17 11/26/17 11:49 17:53 23:56 WBC RBC Hgb Hct MCV MCH MCHC RDW Plt Count Lymph % (Auto) Drew % (Auto) Eos % (Auto) Lymph # Drew # Eos # Seg Neutrophils % Seg Neuts % (Manual) Monocytes % (Manual) Nucleated RBC % Seg Neutrophils # Seg Neutrophils # Man Monocytes # (Manual) PT INR D-Dimer POC ABG pH POC ABG pCO2 POC ABG pO2 Sodium Potassium Chloride Carbon Dioxide BUN Creatinine Glucose POC Glucose 109 H 168 H 145 H Lactic Acid Calcium AST ALT C-Reactive Protein Total Protein Albumin Salicylates Miscellaneous Test 11/27/17 11/27/17 11/27/17 04:22 04:22 04:53 WBC 11.7 H RBC Hgb 15.7 H Hct 49.8 H MCV 100 H MCH MCHC RDW 16.4 H Plt Count 105 L Lymph % (Auto) 7.6 L Drew % (Auto) 8.7 H Eos % (Auto) Lymph # 0.9 L Drew # 1.0 H Eos # Seg Neutrophils % 83.2 H Seg Neuts % (Manual) Monocytes % (Manual) Nucleated RBC % Seg Neutrophils # 9.7 H Seg Neutrophils # Man Monocytes # (Manual) PT INR D-Dimer POC ABG pH POC ABG pCO2 53.1 H POC ABG pO2 70 L Sodium 155 H Potassium Chloride 113.1 H Carbon Dioxide BUN Creatinine 1.5 H Glucose 128 H POC Glucose Lactic Acid Calcium 7.4 L AST ALT C-Reactive Protein Total Protein Albumin Salicylates Miscellaneous Test 11/27/17 11/27/17 11/27/17 05:34 11:27 16:18 WBC RBC Hgb Hct MCV MCH MCHC RDW Plt Count Lymph % (Auto) Drew % (Auto) Eos % (Auto) Lymph # Drew # Eos # Seg Neutrophils % Seg Neuts % (Manual) Monocytes % (Manual) Nucleated RBC % Seg Neutrophils # Seg Neutrophils # Man Monocytes # (Manual) PT INR D-Dimer POC ABG pH POC ABG pCO2 POC ABG pO2 Sodium Potassium Chloride Carbon Dioxide BUN Creatinine Glucose POC Glucose 120 H 129 H Lactic Acid Calcium AST ALT C-Reactive Protein 13.70 H Total Protein Albumin Salicylates Miscellaneous Test 11/27/17 11/27/17 11/28/17 17:19 23:56 03:17 WBC 14.5 H RBC Hgb 15.2 H Hct 48.3 H MCV 99 H MCH MCHC RDW 16.5 H Plt Count 108 L Lymph % (Auto) 9.7 L Drew % (Auto) Eos % (Auto) Lymph # Drew # 1.0 H Eos # Seg Neutrophils % 81.0 H Seg Neuts % (Manual) Monocytes % (Manual) Nucleated RBC % Seg Neutrophils # 11.8 H Seg Neutrophils # Man Monocytes # (Manual) PT INR D-Dimer POC ABG pH POC ABG pCO2 POC ABG pO2 Sodium Potassium Chloride Carbon Dioxide BUN Creatinine Glucose POC Glucose 138 H 125 H Lactic Acid Calcium AST ALT C-Reactive Protein Total Protein Albumin Salicylates Miscellaneous Test 11/28/17 11/28/17 11/28/17 03:17 05:34 06:46 WBC RBC Hgb Hct MCV MCH MCHC RDW Plt Count Lymph % (Auto) Drew % (Auto) Eos % (Auto) Lymph # Drew # Eos # Seg Neutrophils % Seg Neuts % (Manual) Monocytes % (Manual) Nucleated RBC % Seg Neutrophils # Seg Neutrophils # Man Monocytes # (Manual) PT INR D-Dimer POC ABG pH 7.324 L POC ABG pCO2 63.4 H POC ABG pO2 65 L Sodium 150 H Potassium 3.4 L Chloride 107.9 H Carbon Dioxide 31 H BUN 19 H Creatinine 1.3 H Glucose 126 H POC Glucose 132 H Lactic Acid Calcium 7.7 L AST ALT C-Reactive Protein Total Protein Albumin Salicylates Miscellaneous Test 11/28/17 11/28/17 11/28/17 09:23 12:17 17:20 WBC RBC Hgb Hct MCV MCH MCHC RDW Plt Count Lymph % (Auto) Drew % (Auto) Eos % (Auto) Lymph # Drew # Eos # Seg Neutrophils % Seg Neuts % (Manual) Monocytes % (Manual) Nucleated RBC % Seg Neutrophils # Seg Neutrophils # Man Monocytes # (Manual) PT INR D-Dimer POC ABG pH POC ABG pCO2 POC ABG pO2 Sodium Potassium Chloride Carbon Dioxide BUN Creatinine Glucose POC Glucose 142 H 136 H Lactic Acid Calcium AST ALT C-Reactive Protein Total Protein Albumin Salicylates Miscellaneous Test Flexitest 1 H 11/29/17 11/29/17 11/29/17 00:12 04:36 04:47 WBC 14.1 H RBC 5.32 H Hgb 16.4 H Hct 51.2 H MCV MCH MCHC RDW 15.8 H Plt Count 77 L Lymph % (Auto) 7.6 L Drew % (Auto) Eos % (Auto) Lymph # 1.1 L Drew # 0.9 H Eos # 0.5 H Seg Neutrophils % 81.5 H Seg Neuts % (Manual) Monocytes % (Manual) Nucleated RBC % Seg Neutrophils # 11.5 H Seg Neutrophils # Man Monocytes # (Manual) PT INR D-Dimer POC ABG pH POC ABG pCO2 POC ABG pO2 61 L Sodium Potassium Chloride Carbon Dioxide BUN Creatinine Glucose POC Glucose 119 H Lactic Acid Calcium AST ALT C-Reactive Protein Total Protein Albumin Salicylates Miscellaneous Test 11/29/17 11/29/17 11/29/17 04:47 05:29 11:48 WBC RBC Hgb Hct MCV MCH MCHC RDW Plt Count Lymph % (Auto) Drew % (Auto) Eos % (Auto) Lymph # Drew # Eos # Seg Neutrophils % Seg Neuts % (Manual) Monocytes % (Manual) Nucleated RBC % Seg Neutrophils # Seg Neutrophils # Man Monocytes # (Manual) PT INR D-Dimer POC ABG pH POC ABG pCO2 POC ABG pO2 Sodium Potassium Chloride Carbon Dioxide BUN 18 H Creatinine Glucose 119 H POC Glucose 128 H 128 H Lactic Acid Calcium 8.2 L AST ALT C-Reactive Protein Total Protein Albumin Salicylates Miscellaneous Test 11/29/17 11/29/17 11/30/17 17:32 17:39 03:48 WBC 13.5 H RBC Hgb 15.4 H Hct 47.2 H MCV MCH MCHC RDW 16.3 H Plt Count Lymph % (Auto) 10.5 L Drew % (Auto) 7.7 H Eos % (Auto) Lymph # Drew # 1.0 H Eos # 0.5 H Seg Neutrophils % 76.8 H Seg Neuts % (Manual) Monocytes % (Manual) Nucleated RBC % Seg Neutrophils # 10.4 H Seg Neutrophils # Man Monocytes # (Manual) PT INR D-Dimer POC ABG pH POC ABG pCO2 51.6 H POC ABG pO2 345 H Sodium Potassium Chloride Carbon Dioxide BUN Creatinine Glucose POC Glucose 124 H Lactic Acid Calcium AST ALT C-Reactive Protein Total Protein Albumin Salicylates Miscellaneous Test 11/30/17 11/30/17 11/30/17 03:48 03:52 23:37 WBC RBC Hgb Hct MCV MCH MCHC RDW Plt Count Lymph % (Auto) Drew % (Auto) Eos % (Auto) Lymph # Drew # Eos # Seg Neutrophils % Seg Neuts % (Manual) Monocytes % (Manual) Nucleated RBC % Seg Neutrophils # Seg Neutrophils # Man Monocytes # (Manual) PT INR D-Dimer POC ABG pH 7.503 H POC ABG pCO2 POC ABG pO2 65 L Sodium Potassium Chloride Carbon Dioxide BUN Creatinine Glucose 121 H POC Glucose 140 H Lactic Acid Calcium 7.6 L AST ALT C-Reactive Protein Total Protein Albumin Salicylates Miscellaneous Test 12/01/17 12/01/17 12/01/17 03:17 05:30 12:37 WBC RBC Hgb Hct MCV MCH MCHC RDW Plt Count Lymph % (Auto) Drew % (Auto) Eos % (Auto) Lymph # Drew # Eos # Seg Neutrophils % Seg Neuts % (Manual) Monocytes % (Manual) Nucleated RBC % Seg Neutrophils # Seg Neutrophils # Man Monocytes # (Manual) PT INR D-Dimer POC ABG pH POC ABG pCO2 52.7 H POC ABG pO2 64 L Sodium Potassium Chloride Carbon Dioxide BUN Creatinine Glucose POC Glucose 171 H 175 H Lactic Acid Calcium AST ALT C-Reactive Protein Total Protein Albumin Salicylates Miscellaneous Test 12/01/17 12/02/17 12/02/17 17:41 00:01 03:17 WBC RBC Hgb Hct MCV MCH MCHC RDW Plt Count Lymph % (Auto) Drew % (Auto) Eos % (Auto) Lymph # Drew # Eos # Seg Neutrophils % Seg Neuts % (Manual) Monocytes % (Manual) Nucleated RBC % Seg Neutrophils # Seg Neutrophils # Man Monocytes # (Manual) PT INR D-Dimer POC ABG pH POC ABG pCO2 51.5 H POC ABG pO2 67 L Sodium Potassium Chloride Carbon Dioxide BUN Creatinine Glucose POC Glucose 165 H 184 H Lactic Acid Calcium AST ALT C-Reactive Protein Total Protein Albumin Salicylates Miscellaneous Test 12/02/17 12/02/17 12/02/17 05:54 11:44 18:04 WBC RBC Hgb Hct MCV MCH MCHC RDW Plt Count Lymph % (Auto) Drew % (Auto) Eos % (Auto) Lymph # Drew # Eos # Seg Neutrophils % Seg Neuts % (Manual) Monocytes % (Manual) Nucleated RBC % Seg Neutrophils # Seg Neutrophils # Man Monocytes # (Manual) PT INR D-Dimer POC ABG pH POC ABG pCO2 POC ABG pO2 Sodium Potassium Chloride Carbon Dioxide BUN Creatinine Glucose POC Glucose 208 H 175 H 146 H Lactic Acid Calcium AST ALT C-Reactive Protein Total Protein Albumin Salicylates Miscellaneous Test 12/03/17 12/03/17 12/03/17 00:16 05:59 12:09 WBC RBC Hgb Hct MCV MCH MCHC RDW Plt Count Lymph % (Auto) Drew % (Auto) Eos % (Auto) Lymph # Drew # Eos # Seg Neutrophils % Seg Neuts % (Manual) Monocytes % (Manual) Nucleated RBC % Seg Neutrophils # Seg Neutrophils # Man Monocytes # (Manual) PT INR D-Dimer POC ABG pH POC ABG pCO2 53.1 H POC ABG pO2 60 L Sodium Potassium Chloride Carbon Dioxide BUN Creatinine Glucose POC Glucose 135 H 137 H Lactic Acid Calcium AST ALT C-Reactive Protein Total Protein Albumin Salicylates Miscellaneous Test 12/03/17 12/03/17 12/03/17 17:19 20:02 23:30 WBC 13.3 H RBC Hgb 15.1 H Hct 47.0 H MCV MCH MCHC RDW 15.8 H Plt Count Lymph % (Auto) 11.6 L Drew % (Auto) Eos % (Auto) 4.5 H Lymph # Drew # Eos # 0.6 H Seg Neutrophils % 76.6 H Seg Neuts % (Manual) Monocytes % (Manual) Nucleated RBC % Seg Neutrophils # 10.2 H Seg Neutrophils # Man Monocytes # (Manual) PT INR D-Dimer POC ABG pH POC ABG pCO2 POC ABG pO2 Sodium Potassium Chloride Carbon Dioxide BUN Creatinine Glucose POC Glucose 134 H 118 H Lactic Acid Calcium AST ALT C-Reactive Protein Total Protein Albumin Salicylates Miscellaneous Test 12/04/17 06:07 WBC RBC Hgb Hct MCV MCH MCHC RDW Plt Count Lymph % (Auto) Drew % (Auto) Eos % (Auto) Lymph # Drew # Eos # Seg Neutrophils % Seg Neuts % (Manual) Monocytes % (Manual) Nucleated RBC % Seg Neutrophils # Seg Neutrophils # Man Monocytes # (Manual) PT INR D-Dimer POC ABG pH POC ABG pCO2 POC ABG pO2 Sodium Potassium Chloride Carbon Dioxide BUN Creatinine Glucose POC Glucose 163 H Lactic Acid Calcium AST ALT C-Reactive Protein Total Protein Albumin Salicylates Miscellaneous Test Allied health notes reviewed: nursing
[2017-12-04] MEDS: TYLENOL FEEDTUBE PRN (19:54)
[2017-12-05] MEDS: KEPPRA PO SCH ×3 (00:28→11:16)
[2017-12-05] MEDS: HEPARIN SUB-Q SCH ×3 (05:59→22:15)
[2017-12-05] MEDS: REGLAN PO SCH (06:00)
[2017-12-05] MEDS: DUONEB *Not for PRN Use IH SCH ×3 (08:15→16:59)
[2017-12-05] MEDS: PEPCID PO SCH ×2 (11:16→22:15)
--- NOTE | 2017-12-05 11:58 | Progress Note ---
Assessment and Plan Acute hypoxemic respiratory failure, on mechanical ventilatory support. Status post cardiac arrest. Likely aspiration pneumonia. Acute encephalopathy with myoclonic jerks at this point, but with evidence of brainstem function. Acute exacerbation of chronic obstructive pulmonary disease. Tobacco use disorder. Obesity. Hypertension. History of alcohol abuse - continue full MVS acutely - Increased Peep to 10 - continue to wean oxygen for sats > 90% - stopped versed and watching for tremors/seizures - Encephalopathy w/up ongoing - stopped benadryl for angioedema type tongue swelling (swelling better) - continue GI prophylaxis - continue aspiration precautions / address VAP bundle daily - continue bronchodilators and pulmonary hygiene per RT - continue reglan - continue enteral nutrition - continue GI & VTE prophylaxis - continue empiric AB's and follow C&S - continue other care per attending/ other consultants ...AMS will likely be rate limiting step to extubation; next of kin reportedly contemplating comfort care/withdrawal but awaiting on other members) ....remains critically ill on MVS and at high risk for further deterioration including ..30' CCT Subjective Date of service: 12/05/17 Principal diagnosis: Acute Hypoxemic Resp Failure; S/P Cardiac Arrest; Acute Encephalopathy Interval history: Patient is seen today for: Acute Hypoxemic Resp Failure; S/P Cardiac Arrest; Acute Encephalopathy Seen and examined at bedside; 24hour events reviewed; nursing and respiratory care staff consulted; no adverse overnight events reported to me; reamins on MVS ; remains with severe encephalopathy; FiO2 at 55%; no emesis or overt aspiration ; no active seizures Objective Vital Signs - 12hr 12/05/17 12/05/17 12/05/17 00:00 00:17 01:00 Temperature 101.6 F H Pulse Rate 96 H 97 H 100 H Pulse Rate [ Anterior Bilateral Throughout] Pulse Rate [ 96 H From Monitor] Respiratory 20 18 Rate Respiratory Rate [Anterior Bilateral Throughout] Blood Pressure 131/77 131/77 137/80 O2 Sat by Pulse 99 98 93 Oximetry 12/05/17 12/05/17 12/05/17 02:00 03:00 04:00 Temperature 99.3 F Pulse Rate 98 H 95 H 95 H Pulse Rate [ Anterior Bilateral Throughout] Pulse Rate [ 96 H From Monitor] Respiratory 18 18 19 Rate Respiratory Rate [Anterior Bilateral Throughout] Blood Pressure 137/80 159/74 160/69 O2 Sat by Pulse 93 93 93 Oximetry 12/05/17 12/05/17 12/05/17 04:27 05:00 06:00 Temperature Pulse Rate 95 H 95 H 95 H Pulse Rate [ Anterior Bilateral Throughout] Pulse Rate [ From Monitor] Respiratory 21 19 Rate Respiratory Rate [Anterior Bilateral Throughout] Blood Pressure 131/77 127/70 141/72 O2 Sat by Pulse 93 90 90 Oximetry 12/05/17 12/05/17 12/05/17 07:00 07:55 07:59 Temperature 99.4 F Pulse Rate 95 H Pulse Rate [ 104 H Anterior Bilateral Throughout] Pulse Rate [ From Monitor] Respiratory 18 Rate Respiratory 18 Rate [Anterior Bilateral Throughout] Blood Pressure 126/64 O2 Sat by Pulse 92 Oximetry 12/05/17 12/05/17 12/05/17 08:00 08:08 08:30 Temperature Pulse Rate 96 H Pulse Rate [ 105 H Anterior Bilateral Throughout] Pulse Rate [ From Monitor] Respiratory 18 Rate Respiratory 18 Rate [Anterior Bilateral Throughout] Blood Pressure 147/69 O2 Sat by Pulse 96 93 Oximetry 12/05/17 08:47 Temperature 99.4 F Pulse Rate Pulse Rate [ Anterior Bilateral Throughout] Pulse Rate [ From Monitor] Respiratory Rate Respiratory Rate [Anterior Bilateral Throughout] Blood Pressure O2 Sat by Pulse Oximetry Constitutional: appears uncomfortable, other (obtunded) Eyes: non-icteric ENT: oropharynx moist Neck: supple, no lymphadenopathy, no JVD, other (no thyromegaly) Effort: mildly labored Ascultation: Bilateral: diminished breath sounds, rhonchi Percussion: Bilateral: not dull Cardiovascular: regular rate and rhythm, other (no rubs or murmurs) Gastrointestinal: hypoactive bowel sounds, soft, non-tender, non-distended, other (no palapble HSM) Integumentary: normal Extremities: no cyanosis, pink and warm, pulses normal, edema Neurologic: pupils equal and round, unable to assess Psychiatric: other (unable to assess) CBC and BMP: 12/03/17 20:02 11/30/17 03:48 ABG, PT/INR, D-dimer: ABG POC ABG pH 7.423 (7.35-7.45) 12/03/17 05:59 POC ABG pCO2 53.1 (35-45) H 12/03/17 05:59 POC ABG pO2 60 (80-105) L 12/03/17 05:59 POC ABG HCO3 34.7 12/03/17 05:59 POC ABG Total CO2 36 12/03/17 05:59 POC ABG O2 Sat 91 12/03/17 05:59 PT/INR, D-dimer PT 15.3 Sec. (12.2-14.9) H 11/23/17 12:44 INR 1.15 (0.87-1.13) H 11/23/17 12:44 D-Dimer 1977.37 ng/mlDDU (0-234) H 11/24/17 14:44 Abnormal lab findings: Abnormal Labs 11/23/17 11/23/17 11/23/17 12:44 12:44 12:44 WBC 13.0 H RBC Hgb Hct 46.1 H MCV 112 H MCH 33 H MCHC 29 L RDW 18.5 H Plt Count Lymph % (Auto) [place] % (Auto) Eos % (Auto) Lymph # [place] # Eos # Seg Neutrophils % Seg Neuts % (Manual) 71.0 H Monocytes % (Manual) 8.0 H Nucleated RBC % 6.0 H Seg Neutrophils # Seg Neutrophils # Man 9.2 H Monocytes # (Manual) 1.0 H PT 15.3 H INR 1.15 H D-Dimer POC ABG pH POC ABG pCO2 POC ABG pO2 Sodium Potassium 5.4 H Chloride 85.2 L Carbon Dioxide BUN 19 H Creatinine 1.3 H Glucose 175 H POC Glucose Lactic Acid Calcium AST 310 H ALT 262 H C-Reactive Protein Total Protein 5.7 L Albumin 2.9 L Salicylates Miscellaneous Test 11/23/17 11/23/17 11/23/17 12:44 13:23 15:54 WBC RBC Hgb Hct MCV MCH MCHC RDW Plt Count Lymph % (Auto) [place] % (Auto) Eos % (Auto) Lymph # [place] # Eos # Seg Neutrophils % Seg Neuts % (Manual) Monocytes % (Manual) Nucleated RBC % Seg Neutrophils # Seg Neutrophils # Man Monocytes # (Manual) PT INR D-Dimer POC ABG pH 7.035 L POC ABG pCO2 99.1 H POC ABG pO2 343 H Sodium Potassium Chloride Carbon Dioxide BUN Creatinine Glucose POC Glucose Lactic Acid 16.10 H* Calcium AST ALT C-Reactive Protein Total Protein Albumin Salicylates < 0.3 L Miscellaneous Test 11/23/17 11/24/17 11/24/17 16:42 04:03 04:03 WBC 16.8 H RBC Hgb 15.7 H Hct 48.9 H MCV 101 H MCH MCHC RDW 16.5 H Plt Count Lymph % (Auto) 5.2 L [place] % (Auto) Eos % (Auto) Lymph # 0.9 L [place] # 0.9 H Eos # Seg Neutrophils % 89.1 H Seg Neuts % (Manual) Monocytes % (Manual) Nucleated RBC % Seg Neutrophils # 14.9 H Seg Neutrophils # Man Monocytes # (Manual) PT INR D-Dimer POC ABG pH POC ABG pCO2 POC ABG pO2 55 L Sodium Potassium Chloride 96.0 L Carbon Dioxide 33 H D BUN 28 H Creatinine 1.5 H Glucose 108 H POC Glucose Lactic Acid Calcium 7.7 L AST 1091 H ALT 986 H C-Reactive Protein Total Protein 5.0 L Albumin 2.8 L Salicylates Miscellaneous Test 11/24/17 11/24/17 11/24/17 05:55 13:29 13:29 WBC RBC Hgb Hct MCV MCH MCHC RDW Plt Count Lymph % (Auto) [place] % (Auto) Eos % (Auto) Lymph # [place] # Eos # Seg Neutrophils % Seg Neuts % (Manual) Monocytes % (Manual) Nucleated RBC % Seg Neutrophils # Seg Neutrophils # Man Monocytes # (Manual) PT INR D-Dimer POC ABG pH 7.469 H POC ABG pCO2 52.3 H POC ABG pO2 69 L Sodium Potassium Chloride Carbon Dioxide BUN Creatinine Glucose POC Glucose Lactic Acid 3.20 H* Calcium AST ALT C-Reactive Protein 9.20 H Total Protein Albumin Salicylates Miscellaneous Test 11/24/17 11/24/17 11/25/17 14:44 20:55 01:55 WBC RBC Hgb Hct MCV MCH MCHC RDW Plt Count Lymph % (Auto) [place] % (Auto) Eos % (Auto) Lymph # [place] # Eos # Seg Neutrophils % Seg Neuts % (Manual) Monocytes % (Manual) Nucleated RBC % Seg Neutrophils # Seg Neutrophils # Man Monocytes # (Manual) PT INR D-Dimer 1977.37 H POC ABG pH 7.471 H POC ABG pCO2 56.2 H POC ABG pO2 Sodium Potassium Chloride Carbon Dioxide BUN Creatinine Glucose POC Glucose Lactic Acid 3.00 H* Calcium AST ALT C-Reactive Protein Total Protein Albumin Salicylates Miscellaneous Test 11/25/17 11/25/17 11/25/17 03:02 03:02 03:02 WBC 16.0 H RBC Hgb Hct MCV 99 H MCH MCHC RDW 16.0 H Plt Count Lymph % (Auto) 11.6 L [place] % (Auto) Eos % (Auto) Lymph # [place] # 1.0 H Eos # Seg Neutrophils % 81.8 H Seg Neuts % (Manual) Monocytes % (Manual) Nucleated RBC % Seg Neutrophils # 13.1 H Seg Neutrophils # Man Monocytes # (Manual) PT INR D-Dimer POC ABG pH POC ABG pCO2 POC ABG pO2 Sodium 148 H Potassium Chloride Carbon Dioxide 35 H BUN 30 H Creatinine 1.9 H Glucose 106 H POC Glucose Lactic Acid 2.90 H* Calcium 7.0 L AST ALT C-Reactive Protein Total Protein Albumin Salicylates Miscellaneous Test 11/25/17 11/25/17 11/25/17 03:02 03:35 07:15 WBC RBC Hgb Hct MCV MCH MCHC RDW Plt Count Lymph % (Auto) [place] % (Auto) Eos % (Auto) Lymph # [place] # Eos # Seg Neutrophils % Seg Neuts % (Manual) Monocytes % (Manual) Nucleated RBC % Seg Neutrophils # Seg Neutrophils # Man Monocytes # (Manual) PT INR D-Dimer POC ABG pH 7.494 H POC ABG pCO2 48.1 H POC ABG pO2 Sodium Potassium Chloride Carbon Dioxide BUN Creatinine Glucose POC Glucose Lactic Acid 2.30 H* Calcium AST 300 H ALT 561 H C-Reactive Protein Total Protein 4.5 L Albumin 2.4 L Salicylates Miscellaneous Test 11/26/17 11/26/17 11/26/17 03:26 03:26 03:52 WBC 12.7 H RBC Hgb 14.9 H Hct 45.9 H MCV 98 H MCH MCHC RDW 16.3 H Plt Count 137 L Lymph % (Auto) 10.0 L [place] % (Auto) Eos % (Auto) Lymph # [place] # Eos # Seg Neutrophils % 82.7 H Seg Neuts % (Manual) Monocytes % (Manual) Nucleated RBC % Seg Neutrophils # 10.5 H Seg Neutrophils # Man Monocytes # (Manual) PT INR D-Dimer POC ABG pH 7.475 H POC ABG pCO2 POC ABG pO2 71 L Sodium 150 H Potassium 3.3 L Chloride Carbon Dioxide BUN 22 H Creatinine 1.7 H Glucose 107 H POC Glucose Lactic Acid Calcium 7.5 L AST ALT C-Reactive Protein Total Protein Albumin Salicylates Miscellaneous Test 11/26/17 11/26/17 11/26/17 11:49 17:53 23:56 WBC RBC Hgb Hct MCV MCH MCHC RDW Plt Count Lymph % (Auto) [place] % (Auto) Eos % (Auto) Lymph # [place] # Eos # Seg Neutrophils % Seg Neuts % (Manual) Monocytes % (Manual) Nucleated RBC % Seg Neutrophils # Seg Neutrophils # Man Monocytes # (Manual) PT INR D-Dimer POC ABG pH POC ABG pCO2 POC ABG pO2 Sodium Potassium Chloride Carbon Dioxide BUN Creatinine Glucose POC Glucose 109 H 168 H 145 H Lactic Acid Calcium AST ALT C-Reactive Protein Total Protein Albumin Salicylates Miscellaneous Test 11/27/17 11/27/17 11/27/17 04:22 04:22 04:53 WBC 11.7 H RBC Hgb 15.7 H Hct 49.8 H MCV 100 H MCH MCHC RDW 16.4 H Plt Count 105 L Lymph % (Auto) 7.6 L [place] % (Auto) 8.7 H Eos % (Auto) Lymph # 0.9 L [place] # 1.0 H Eos # Seg Neutrophils % 83.2 H Seg Neuts % (Manual) Monocytes % (Manual) Nucleated RBC % Seg Neutrophils # 9.7 H Seg Neutrophils # Man Monocytes # (Manual) PT INR D-Dimer POC ABG pH POC ABG pCO2 53.1 H POC ABG pO2 70 L Sodium 155 H Potassium Chloride 113.1 H Carbon Dioxide BUN Creatinine 1.5 H Glucose 128 H POC Glucose Lactic Acid Calcium 7.4 L AST ALT C-Reactive Protein Total Protein Albumin Salicylates Miscellaneous Test 11/27/17 11/27/17 11/27/17 05:34 11:27 16:18 WBC RBC Hgb Hct MCV MCH MCHC RDW Plt Count Lymph % (Auto) [place] % (Auto) Eos % (Auto) Lymph # [place] # Eos # Seg Neutrophils % Seg Neuts % (Manual) Monocytes % (Manual) Nucleated RBC % Seg Neutrophils # Seg Neutrophils # Man Monocytes # (Manual) PT INR D-Dimer POC ABG pH POC ABG pCO2 POC ABG pO2 Sodium Potassium Chloride Carbon Dioxide BUN Creatinine Glucose POC Glucose 120 H 129 H Lactic Acid Calcium AST ALT C-Reactive Protein 13.70 H Total Protein Albumin Salicylates Miscellaneous Test 11/27/17 11/27/17 11/28/17 17:19 23:56 03:17 WBC 14.5 H RBC Hgb 15.2 H Hct 48.3 H MCV 99 H MCH MCHC RDW 16.5 H Plt Count 108 L Lymph % (Auto) 9.7 L [place] % (Auto) Eos % (Auto) Lymph # [place] # 1.0 H Eos # Seg Neutrophils % 81.0 H Seg Neuts % (Manual) Monocytes % (Manual) Nucleated RBC % Seg Neutrophils # 11.8 H Seg Neutrophils # Man Monocytes # (Manual) PT INR D-Dimer POC ABG pH POC ABG pCO2 POC ABG pO2 Sodium Potassium Chloride Carbon Dioxide BUN Creatinine Glucose POC Glucose 138 H 125 H Lactic Acid Calcium AST ALT C-Reactive Protein Total Protein Albumin Salicylates Miscellaneous Test 11/28/17 11/28/17 11/28/17 03:17 05:34 06:46 WBC RBC Hgb Hct MCV MCH MCHC RDW Plt Count Lymph % (Auto) [place] % (Auto) Eos % (Auto) Lymph # [place] # Eos # Seg Neutrophils % Seg Neuts % (Manual) Monocytes % (Manual) Nucleated RBC % Seg Neutrophils # Seg Neutrophils # Man Monocytes # (Manual) PT INR D-Dimer POC ABG pH 7.324 L POC ABG pCO2 63.4 H POC ABG pO2 65 L Sodium 150 H Potassium 3.4 L Chloride 107.9 H Carbon Dioxide 31 H BUN 19 H Creatinine 1.3 H Glucose 126 H POC Glucose 132 H Lactic Acid Calcium 7.7 L AST ALT C-Reactive Protein Total Protein Albumin Salicylates Miscellaneous Test 11/28/17 11/28/17 11/28/17 09:23 12:17 17:20 WBC RBC Hgb Hct MCV MCH MCHC RDW Plt Count Lymph % (Auto) [place] % (Auto) Eos % (Auto) Lymph # [place] # Eos # Seg Neutrophils % Seg Neuts % (Manual) Monocytes % (Manual) Nucleated RBC % Seg Neutrophils # Seg Neutrophils # Man Monocytes # (Manual) PT INR D-Dimer POC ABG pH POC ABG pCO2 POC ABG pO2 Sodium Potassium Chloride Carbon Dioxide BUN Creatinine Glucose POC Glucose 142 H 136 H Lactic Acid Calcium AST ALT C-Reactive Protein Total Protein Albumin Salicylates Miscellaneous Test Flexitest 1 H 11/29/17 11/29/17 11/29/17 00:12 04:36 04:47 WBC 14.1 H RBC 5.32 H Hgb 16.4 H Hct 51.2 H MCV MCH MCHC RDW 15.8 H Plt Count 77 L Lymph % (Auto) 7.6 L [place] % (Auto) Eos % (Auto) Lymph # 1.1 L [place] # 0.9 H Eos # 0.5 H Seg Neutrophils % 81.5 H Seg Neuts % (Manual) Monocytes % (Manual) Nucleated RBC % Seg Neutrophils # 11.5 H Seg Neutrophils # Man Monocytes # (Manual) PT INR D-Dimer POC ABG pH POC ABG pCO2 POC ABG pO2 61 L Sodium Potassium Chloride Carbon Dioxide BUN Creatinine Glucose POC Glucose 119 H Lactic Acid Calcium AST ALT C-Reactive Protein Total Protein Albumin Salicylates Miscellaneous Test 11/29/17 11/29/17 11/29/17 04:47 05:29 11:48 WBC RBC Hgb Hct MCV MCH MCHC RDW Plt Count Lymph % (Auto) [place] % (Auto) Eos % (Auto) Lymph # [place] # Eos # Seg Neutrophils % Seg Neuts % (Manual) Monocytes % (Manual) Nucleated RBC % Seg Neutrophils # Seg Neutrophils # Man Monocytes # (Manual) PT INR D-Dimer POC ABG pH POC ABG pCO2 POC ABG pO2 Sodium Potassium Chloride Carbon Dioxide BUN 18 H Creatinine Glucose 119 H POC Glucose 128 H 128 H Lactic Acid Calcium 8.2 L AST ALT C-Reactive Protein Total Protein Albumin Salicylates Miscellaneous Test 11/29/17 11/29/17 11/30/17 17:32 17:39 03:48 WBC 13.5 H RBC Hgb 15.4 H Hct 47.2 H MCV MCH MCHC RDW 16.3 H Plt Count Lymph % (Auto) 10.5 L [place] % (Auto) 7.7 H Eos % (Auto) Lymph # [place] # 1.0 H Eos # 0.5 H Seg Neutrophils % 76.8 H Seg Neuts % (Manual) Monocytes % (Manual) Nucleated RBC % Seg Neutrophils # 10.4 H Seg Neutrophils # Man Monocytes # (Manual) PT INR D-Dimer POC ABG pH POC ABG pCO2 51.6 H POC ABG pO2 345 H Sodium Potassium Chloride Carbon Dioxide BUN Creatinine Glucose POC Glucose 124 H Lactic Acid Calcium AST ALT C-Reactive Protein Total Protein Albumin Salicylates Miscellaneous Test 11/30/17 11/30/17 11/30/17 03:48 03:52 23:37 WBC RBC Hgb Hct MCV MCH MCHC RDW Plt Count Lymph % (Auto) [place] % (Auto) Eos % (Auto) Lymph # [place] # Eos # Seg Neutrophils % Seg Neuts % (Manual) Monocytes % (Manual) Nucleated RBC % Seg Neutrophils # Seg Neutrophils # Man Monocytes # (Manual) PT INR D-Dimer POC ABG pH 7.503 H POC ABG pCO2 POC ABG pO2 65 L Sodium Potassium Chloride Carbon Dioxide BUN Creatinine Glucose 121 H POC Glucose 140 H Lactic Acid Calcium 7.6 L AST ALT C-Reactive Protein Total Protein Albumin Salicylates Miscellaneous Test 12/01/17 12/01/17 12/01/17 03:17 05:30 12:37 WBC RBC Hgb Hct MCV MCH MCHC RDW Plt Count Lymph % (Auto) [place] % (Auto) Eos % (Auto) Lymph # [place] # Eos # Seg Neutrophils % Seg Neuts % (Manual) Monocytes % (Manual) Nucleated RBC % Seg Neutrophils # Seg Neutrophils # Man Monocytes # (Manual) PT INR D-Dimer POC ABG pH POC ABG pCO2 52.7 H POC ABG pO2 64 L Sodium Potassium Chloride Carbon Dioxide BUN Creatinine Glucose POC Glucose 171 H 175 H Lactic Acid Calcium AST ALT C-Reactive Protein Total Protein Albumin Salicylates Miscellaneous Test 12/01/17 12/02/17 12/02/17 17:41 00:01 03:17 WBC RBC Hgb Hct MCV MCH MCHC RDW Plt Count Lymph % (Auto) [place] % (Auto) Eos % (Auto) Lymph # [place] # Eos # Seg Neutrophils % Seg Neuts % (Manual) Monocytes % (Manual) Nucleated RBC % Seg Neutrophils # Seg Neutrophils # Man Monocytes # (Manual) PT INR D-Dimer POC ABG pH POC ABG pCO2 51.5 H POC ABG pO2 67 L Sodium Potassium Chloride Carbon Dioxide BUN Creatinine Glucose POC Glucose 165 H 184 H Lactic Acid Calcium AST ALT C-Reactive Protein Total Protein Albumin Salicylates Miscellaneous Test 12/02/17 12/02/17 12/02/17 05:54 11:44 18:04 WBC RBC Hgb Hct MCV MCH MCHC RDW Plt Count Lymph % (Auto) [place] % (Auto) Eos % (Auto) Lymph # [place] # Eos # Seg Neutrophils % Seg Neuts % (Manual) Monocytes % (Manual) Nucleated RBC % Seg Neutrophils # Seg Neutrophils # Man Monocytes # (Manual) PT INR D-Dimer POC ABG pH POC ABG pCO2 POC ABG pO2 Sodium Potassium Chloride Carbon Dioxide BUN Creatinine Glucose POC Glucose 208 H 175 H 146 H Lactic Acid Calcium AST ALT C-Reactive Protein Total Protein Albumin Salicylates Miscellaneous Test 12/03/17 12/03/17 12/03/17 00:16 05:59 12:09 WBC RBC Hgb Hct MCV MCH MCHC RDW Plt Count Lymph % (Auto) [place] % (Auto) Eos % (Auto) Lymph # [place] # Eos # Seg Neutrophils % Seg Neuts % (Manual) Monocytes % (Manual) Nucleated RBC % Seg Neutrophils # Seg Neutrophils # Man Monocytes # (Manual) PT INR D-Dimer POC ABG pH POC ABG pCO2 53.1 H POC ABG pO2 60 L Sodium Potassium Chloride Carbon Dioxide BUN Creatinine Glucose POC Glucose 135 H 137 H Lactic Acid Calcium AST ALT C-Reactive Protein Total Protein Albumin Salicylates Miscellaneous Test 12/03/17 12/03/17 12/03/17 17:19 20:02 23:30 WBC 13.3 H RBC Hgb 15.1 H Hct 47.0 H MCV MCH MCHC RDW 15.8 H Plt Count Lymph % (Auto) 11.6 L [place] % (Auto) Eos % (Auto) 4.5 H Lymph # [place] # Eos # 0.6 H Seg Neutrophils % 76.6 H Seg Neuts % (Manual) Monocytes % (Manual) Nucleated RBC % Seg Neutrophils # 10.2 H Seg Neutrophils # Man Monocytes # (Manual) PT INR D-Dimer POC ABG pH POC ABG pCO2 POC ABG pO2 Sodium Potassium Chloride Carbon Dioxide BUN Creatinine Glucose POC Glucose 134 H 118 H Lactic Acid Calcium AST ALT C-Reactive Protein Total Protein Albumin Salicylates Miscellaneous Test 12/04/17 12/04/17 12/04/17 06:07 11:54 17:20 WBC RBC Hgb Hct MCV MCH MCHC RDW Plt Count Lymph % (Auto) [place] % (Auto) Eos % (Auto) Lymph # [place] # Eos # Seg Neutrophils % Seg Neuts % (Manual) Monocytes % (Manual) Nucleated RBC % Seg Neutrophils # Seg Neutrophils # Man Monocytes # (Manual) PT INR D-Dimer POC ABG pH POC ABG pCO2 POC ABG pO2 Sodium Potassium Chloride Carbon Dioxide BUN Creatinine Glucose POC Glucose 163 H 154 H 143 H Lactic Acid Calcium AST ALT C-Reactive Protein Total Protein Albumin Salicylates Miscellaneous Test 12/04/17 12/05/17 23:51 06:14 WBC RBC Hgb Hct MCV MCH MCHC RDW Plt Count Lymph % (Auto) [place] % (Auto) Eos % (Auto) Lymph # [place] # Eos # Seg Neutrophils % Seg Neuts % (Manual) Monocytes % (Manual) Nucleated RBC % Seg Neutrophils # Seg Neutrophils # Man Monocytes # (Manual) PT INR D-Dimer POC ABG pH POC ABG pCO2 POC ABG pO2 Sodium Potassium Chloride Carbon Dioxide BUN Creatinine Glucose POC Glucose 139 H 158 H Lactic Acid Calcium AST ALT C-Reactive Protein Total Protein Albumin Salicylates Miscellaneous Test Allied health notes reviewed: nursing
--- NOTE | 2017-12-05 13:33 | Progress Note ---
Assessment and Plan Assessment and plan: S/p cardiopulmonary arrest. Etiology likely secondary to respiratory arrest. - Anoxic encephalopathy; EEG showed no cortical activity - Patient is not breathing over the vent, repeat EEG showed no cortical activity - Neurology consulted Anoxic brain injury: CT and MRI suggest anoxic brain injury. No pupillary reflex. COPD exacerbation Sepsis: ID consulted and on IV antibiotics Hypernatremia Possible complex partial seizures with secondary generalization. Acute hypercapneic resp failure. Patient didn't breath over the vent. TAMARA - Resolved Have discussed with her younger brother, about the prognosis and waiting family members to make decisions, to withdraw care or to made AND today. If not will order brain flow study tomorrow. History Interval history: Patient was seen and evaluated this morning, patient is intubated and on mechanical ventilation, patient is comatose despite off sedation. Hospitalist Physical - Physical exam Narrative exam: Intubated and mechanical ventilation.. The patient appeared well nourished and normally developed. Vital signs as documented. Head exam is unremarkable. No scleral icterus . Neck is without jugular venous distension, thyromegaly, or carotid bruits. Lungs are clear to auscultation. Cardiac exam reveals regular rate and Rhythm. First and second heart sounds normal. No murmurs, rubs or gallops. Abdominal exam reveals normal bowel sounds, no masses, no organomegaly and no aortic enlargement. Extremities are nonedematous and both femoral and pedal pulses are normal. BUSINESS RISK CONSULTANT: Deeply comatose. - Constitutional Vitals: Temp Pulse Resp BP Pulse Ox 98.3 F 108 H 18 147/69 97 12/05/17 12:00 12/05/17 12:10 12/05/17 12:10 12/05/17 12:00 12/05/17 12:00 General appearance: Present: no acute distress, other (on [facility] vent, orally intubated) Results - Labs CBC & Chem 7: 12/03/17 20:02 11/30/17 03:48 Labs: Laboratory Last Values WBC 13.3 K/mm3 (4.5-11.0) H 12/03/17 20:02 RBC 4.86 M/mm3 (3.65-5.03) 12/03/17 20:02 Hgb 15.1 gm/dl (10.1-14.3) H 12/03/17 20:02 Hct 47.0 % (30.3-42.9) H 12/03/17 20:02 MCV 97 fl (79-97) 12/03/17 20:02 MCH 31 pg (28-32) 12/03/17 20:02 MCHC 32 % (30-34) 12/03/17 20:02 RDW 15.8 % (13.2-15.2) H 12/03/17 20:02 Plt Count 396 K/mm3 (140-440) 12/03/17 20:02 Lymph % (Auto) 11.6 % (13.4-35.0) L 12/03/17 20:02 [place] % (Auto) 6.3 % (0.0-7.3) 12/03/17 20:02 Eos % (Auto) 4.5 % (0.0-4.3) H 12/03/17 20:02 Baso % (Auto) 1.0 % (0.0-1.8) 12/03/17 20:02 Lymph # 1.6 K/mm3 (1.2-5.4) 12/03/17 20:02 [place] # 0.8 K/mm3 (0.0-0.8) 12/03/17 20:02 Eos # 0.6 K/mm3 (0.0-0.4) H 12/03/17 20:02 Baso # 0.1 K/mm3 (0.0-0.1) 12/03/17 20:02 Add Manual Diff Complete 11/23/17 12:44 Total Counted 100 11/23/17 12:44 Seg Neutrophils % 76.6 % (40.0-70.0) H 12/03/17 20:02 Seg Neuts % (Manual) 71.0 % (40.0-70.0) H 11/23/17 12:44 Band Neutrophils % 3.0 % 11/23/17 12:44 Lymphocytes % (Manual) 18.0 % (13.4-35.0) 11/23/17 12:44 Reactive Lymphs % (Man) 0 % 11/23/17 12:44 Monocytes % (Manual) 8.0 % (0.0-7.3) H 11/23/17 12:44 Eosinophils % (Manual) 0 % (0.0-4.3) 11/23/17 12:44 Basophils % (Manual) 0 % (0.0-1.8) 11/23/17 12:44 Metamyelocytes % 0 % 11/23/17 12:44 Myelocytes % 0 % 11/23/17 12:44 Promyelocytes % 0 % 11/23/17 12:44 Blast Cells % 0 % 11/23/17 12:44 Nucleated RBC % 6.0 % (0.0-0.9) H 11/23/17 12:44 Seg Neutrophils # 10.2 K/mm3 (1.8-7.7) H 12/03/17 20:02 Seg Neutrophils # Man 9.2 K/mm3 (1.8-7.7) H 11/23/17 12:44 Band Neutrophils # 0.4 K/mm3 11/23/17 12:44 Lymphocytes # (Manual) 2.3 K/mm3 (1.2-5.4) 11/23/17 12:44 Abs React Lymphs (Man) 0.0 K/mm3 11/23/17 12:44 Monocytes # (Manual) 1.0 K/mm3 (0.0-0.8) H 11/23/17 12:44 Eosinophils # (Manual) 0.0 K/mm3 (0.0-0.4) 11/23/17 12:44 Basophils # (Manual) 0.0 K/mm3 (0.0-0.1) 11/23/17 12:44 Metamyelocytes # 0.0 K/mm3 11/23/17 12:44 Myelocytes # 0.0 K/mm3 11/23/17 12:44 Promyelocytes # 0.0 K/mm3 11/23/17 12:44 Blast Cells # 0.0 K/mm3 11/23/17 12:44 WBC Morphology Not Reportable 11/23/17 12:44 Hypersegmented Neuts Not Reportable 11/23/17 12:44 Hyposegmented Neuts Not Reportable 11/23/17 12:44 Hypogranular Neuts Not Reportable 11/23/17 12:44 Smudge Cells Not Reportable 11/23/17 12:44 Toxic Granulation Not Reportable 11/23/17 12:44 Toxic Vacuolation Not Reportable 11/23/17 12:44 Dohle Bodies Not Reportable 11/23/17 12:44 Pelger-Huet Anomaly Not Reportable 11/23/17 12:44 Erika Rods Not Reportable 11/23/17 12:44 Platelet Estimate Consistent w auto 11/23/17 12:44 Clumped Platelets Not Reportable 11/23/17 12:44 Plt Clumps, EDTA Not Reportable 11/23/17 12:44 Large Platelets Not Reportable 11/23/17 12:44 Giant Platelets Not Reportable 11/23/17 12:44 Platelet Satelliting Not Reportable 11/23/17 12:44 Plt Morphology Comment Not Reportable 11/23/17 12:44 RBC Morphology Not Reportable 11/23/17 12:44 Dimorphic RBCs Not Reportable 11/23/17 12:44 Polychromasia Rare 11/23/17 12:44 Hypochromasia Not Reportable 11/23/17 12:44 Poikilocytosis Not Reportable 11/23/17 12:44 Anisocytosis 1+ 11/23/17 12:44 Microcytosis Not Reportable 11/23/17 12:44 Macrocytosis 1+ 11/23/17 12:44 Spherocytes Not Reportable 11/23/17 12:44 Pappenheimer Bodies Not Reportable 11/23/17 12:44 Sickle Cells Not Reportable 11/23/17 12:44 Target Cells Not Reportable 11/23/17 12:44 Tear Drop Cells Not Reportable 11/23/17 12:44 Ovalocytes Not Reportable 11/23/17 12:44 Helmet Cells Not Reportable 11/23/17 12:44 [place] Bodies Not Reportable 11/23/17 12:44 [place] Rings Not Reportable 11/23/17 12:44 [place] Cells Not Reportable 11/23/17 12:44 Bite Cells Not Reportable 11/23/17 12:44 Crenated Cell Not Reportable 11/23/17 12:44 Elliptocytes Not Reportable 11/23/17 12:44 Acanthocytes (Spur) Not Reportable 11/23/17 12:44 Rouleaux Not Reportable 11/23/17 12:44 Hemoglobin C Crystals Not Reportable 11/23/17 12:44 Schistocytes Not Reportable 11/23/17 12:44 Malaria parasites Not Reportable 11/23/17 12:44 Brett Bodies Not Reportable 11/23/17 12:44 Hem Pathologist Commnt No 11/23/17 12:44 PT 15.3 Sec. (12.2-14.9) H 11/23/17 12:44 INR 1.15 (0.87-1.13) H 11/23/17 12:44 APTT 33.9 Sec. (24.2-36.6) 11/23/17 12:44 D-Dimer 1977.37 ng/mlDDU (0-234) H 11/24/17 14:44 POC ABG pH 7.423 (7.35-7.45) 12/03/17 05:59 POC ABG pCO2 53.1 (35-45) H 12/03/17 05:59 POC ABG pO2 60 (80-105) L 12/03/17 05:59 POC ABG HCO3 34.7 12/03/17 05:59 POC ABG Total CO2 36 12/03/17 05:59 POC ABG O2 Sat 91 12/03/17 05:59 POC ABG Base Excess 10 12/03/17 05:59 FiO2 45 % 12/03/17 05:59 Sodium 143 mmol/L (137-145) 11/30/17 03:48 Potassium 3.7 mmol/L (3.6-5.0) 11/30/17 03:48 Chloride 104.1 mmol/L (98-107) 11/30/17 03:48 Carbon Dioxide 27 mmol/L (22-30) 11/30/17 03:48 Anion Gap 16 mmol/L 11/30/17 03:48 BUN 16 mg/dL (7-17) 11/30/17 03:48 Creatinine 1.2 mg/dL (0.7-1.2) 11/30/17 03:48 Estimated GFR 46 ml/min 11/30/17 03:48 BUN/Creatinine Ratio 13 % 11/30/17 03:48 Glucose 121 mg/dL (65-100) H 11/30/17 03:48 POC Glucose 158 (70-105) H 12/05/17 06:14 Lactic Acid 2.00 mmol/L (0.7-2.0) 11/25/17 10:25 Calcium 7.6 mg/dL (8.4-10.2) L 11/30/17 03:48 Magnesium 1.90 mg/dL (1.7-2.3) 11/28/17 03:17 Total Bilirubin 0.60 mg/dL (0.1-1.2) 11/25/17 03:02 Direct Bilirubin 0.2 mg/dL (0-0.2) 11/25/17 03:02 Indirect Bilirubin 0.4 mg/dL 11/25/17 03:02 AST 300 units/L (5-40) H 11/25/17 03:02 ALT 561 units/L (7-56) H 11/25/17 03:02 Alkaline Phosphatase 54 units/L (35-129) 11/25/17 03:02 Troponin T < 0.010 ng/mL (0.00-0.029) 11/23/17 12:44 C-Reactive Protein 13.70 mg/dL (0.00-1.30) H 11/27/17 16:18 Total Protein 4.5 g/dL (6.3-8.2) L 11/25/17 03:02 Albumin 2.4 g/dL (3.9-5) L 11/25/17 03:02 Albumin/Globulin Ratio 1.1 % 11/25/17 03:02 Urine Color Yellow (Yellow) 11/23/17 13:39 Urine Turbidity Clear (Clear) 11/23/17 13:39 Urine pH 5.0 (5.0-7.0) 11/23/17 13:39 Ur Specific [place] 1.020 (1.003-1.030) 11/23/17 13:39 Urine Protein 30 mg/dl mg/dL (Negative) 11/23/17 13:39 Urine Glucose (UA) Neg mg/dL (Negative) 11/23/17 13:39 Urine Ketones Neg mg/dL (Negative) 11/23/17 13:39 Urine Blood Neg (Negative) 11/23/17 13:39 Urine Nitrite Neg (Negative) 11/23/17 13:39 Urine Bilirubin Neg (Negative) 11/23/17 13:39 Urine Urobilinogen 2.0 mg/dL (<2.0) 11/23/17 13:39 Ur Leukocyte Esterase Neg (Negative) 11/23/17 13:39 Urine WBC (Auto) 5.0 /HPF (0.0-6.0) 11/23/17 13:39 Urine RBC (Auto) 1.0 /HPF (0.0-6.0) 11/23/17 13:39 U Epithel Cells (Auto) 1.0 /HPF (0-13.0) 11/23/17 13:39 Urine Bacteria (Auto) 1+ /HPF (Negative) 11/23/17 13:39 Hyaline Casts 11 /LPF 11/23/17 13:39 Urine Mucus 2+ /HPF 11/23/17 13:39 Salicylates < 0.3 mg/dL (2.8-20.0) L 11/23/17 15:54 Urine Opiates Screen Presumptive positive 11/23/17 13:39 Urine Methadone Screen Presumptive negative 11/23/17 13:39 Acetaminophen < 15.0 ug/mL (10.0-30.0) 11/23/17 15:54 Ur Barbiturates Screen Presumptive negative 11/23/17 13:39 Levetiracetam 30.0 mcg/mL 11/25/17 17:30 Ur Phencyclidine Scrn Presumptive negative 11/23/17 13:39 Ur Amphetamines Screen Presumptive negative 11/23/17 13:39 U Benzodiazepines Scrn Presumptive positive 11/23/17 13:39 Urine Cocaine Screen Presumptive negative 11/23/17 13:39 U Marijuana (THC) Screen Presumptive negative 11/23/17 13:39 Drugs of Abuse Note Disclamer 11/23/17 13:39 Miscellaneous Test Flexitest 1 H 11/28/17 09:23
[2017-12-06] MEDS: KEPPRA PO SCH ×4 (00:15→13:44)
[2017-12-06] MEDS: DUONEB *Not for PRN Use IH SCH ×3 (00:18→16:11)
[2017-12-06] MEDS: HEPARIN SUB-Q SCH ×3 (06:00→22:08)
[2017-12-06] MEDS: PEPCID PO SCH ×2 (10:54→22:08)
--- NOTE | 2017-12-06 11:40 | Progress Note ---
Assessment and Plan Assessment and plan: S/p cardiopulmonary arrest. Etiology likely secondary to respiratory arrest. - Anoxic encephalopathy; EEG showed no cortical activity - Neurology following Anoxic brain injury: CT and MRI suggest anoxic brain injury. No pupillary reflex. COPD exacerbation. Continue bronchodilators. Sepsis: ID following and previously on IV antibiotics. Completed zosyn 10 days and tamiflu 5 days yesterday Etiology most likely central fever +/- influenza +/- pneumonia. Hypernatremia Possible complex partial seizures with secondary generalization. Acute hypercapneic resp failure. Continue mechanical ventilation per pulmonary TAMARA - Resolved Dr. Fonseca discussed with her younger brother, about the prognosis and waiting family members to make decisions, to withdraw care or to make AND. If not, will order brain flow study. History Interval history: This unfortunate 56 year old female who was found pulseless, in asystole on and resuscitated, remains with no neurological function at this time. CT confirms severe anoxic damage from 11/26/17. EEG reveals no cortical activity. She is off all sedation. Patient fits criteria for brain , cortical. Brain stem has function only demonstrated by spontaneous respiration off the ventilator. Hospitalist Physical - Constitutional Vitals: Temp Pulse Resp BP Pulse Ox 99.5 F 90 18 128/74 92 12/06/17 08:00 12/06/17 08:30 12/06/17 08:30 12/06/17 08:19 12/06/17 08:19 General appearance: Present: other (on mech vent, ) - EENT Eyes: Present: PERRL, EOM intact ENT: hearing intact, clear oral mucosa, dentition normal - Neck Neck: Present: supple, normal ROM - Respiratory Respiratory effort: normal Respiratory: bilateral: diminished - Cardiovascular Rhythm: regular Heart Sounds: Present: S1 & S2. Absent: gallop, rub - Extremities Extremities: no ischemia, No edema, Full ROM - Abdominal General gastrointestinal: soft, non-tender, non-distended, normal bowel sounds - Integumentary Integumentary: Present: clear, warm, dry - Neurologic Neurologic: CNII-XII intact, moves all extremities Results - Labs CBC & Chem 7: 12/03/17 20:02 11/30/17 03:48 Labs: Laboratory Last Values WBC 13.3 K/mm3 (4.5-11.0) H 12/03/17 20:02 RBC 4.86 M/mm3 (3.65-5.03) 12/03/17 20:02 Hgb 15.1 gm/dl (10.1-14.3) H 12/03/17 20:02 Hct 47.0 % (30.3-42.9) H 12/03/17 20:02 MCV 97 fl (79-97) 12/03/17 20:02 MCH 31 pg (28-32) 12/03/17 20:02 MCHC 32 % (30-34) 12/03/17 20:02 RDW 15.8 % (13.2-15.2) H 12/03/17 20:02 Plt Count 396 K/mm3 (140-440) 12/03/17 20:02 Lymph % (Auto) 11.6 % (13.4-35.0) L 12/03/17 20:02 [place] % (Auto) 6.3 % (0.0-7.3) 12/03/17 20:02 Eos % (Auto) 4.5 % (0.0-4.3) H 12/03/17 20:02 Baso % (Auto) 1.0 % (0.0-1.8) 12/03/17 20:02 Lymph # 1.6 K/mm3 (1.2-5.4) 12/03/17 20:02 [place] # 0.8 K/mm3 (0.0-0.8) 12/03/17 20:02 Eos # 0.6 K/mm3 (0.0-0.4) H 12/03/17 20:02 Baso # 0.1 K/mm3 (0.0-0.1) 12/03/17 20:02 Add Manual Diff Complete 11/23/17 12:44 Total Counted 100 11/23/17 12:44 Seg Neutrophils % 76.6 % (40.0-70.0) H 12/03/17 20:02 Seg Neuts % (Manual) 71.0 % (40.0-70.0) H 11/23/17 12:44 Band Neutrophils % 3.0 % 11/23/17 12:44 Lymphocytes % (Manual) 18.0 % (13.4-35.0) 11/23/17 12:44 Reactive Lymphs % (Man) 0 % 11/23/17 12:44 Monocytes % (Manual) 8.0 % (0.0-7.3) H 11/23/17 12:44 Eosinophils % (Manual) 0 % (0.0-4.3) 11/23/17 12:44 Basophils % (Manual) 0 % (0.0-1.8) 11/23/17 12:44 Metamyelocytes % 0 % 11/23/17 12:44 Myelocytes % 0 % 11/23/17 12:44 Promyelocytes % 0 % 11/23/17 12:44 Blast Cells % 0 % 11/23/17 12:44 Nucleated RBC % 6.0 % (0.0-0.9) H 11/23/17 12:44 Seg Neutrophils # 10.2 K/mm3 (1.8-7.7) H 12/03/17 20:02 Seg Neutrophils # Man 9.2 K/mm3 (1.8-7.7) H 11/23/17 12:44 Band Neutrophils # 0.4 K/mm3 11/23/17 12:44 Lymphocytes # (Manual) 2.3 K/mm3 (1.2-5.4) 11/23/17 12:44 Abs React Lymphs (Man) 0.0 K/mm3 11/23/17 12:44 Monocytes # (Manual) 1.0 K/mm3 (0.0-0.8) H 11/23/17 12:44 Eosinophils # (Manual) 0.0 K/mm3 (0.0-0.4) 11/23/17 12:44 Basophils # (Manual) 0.0 K/mm3 (0.0-0.1) 11/23/17 12:44 Metamyelocytes # 0.0 K/mm3 11/23/17 12:44 Myelocytes # 0.0 K/mm3 11/23/17 12:44 Promyelocytes # 0.0 K/mm3 11/23/17 12:44 Blast Cells # 0.0 K/mm3 11/23/17 12:44 WBC Morphology Not Reportable 11/23/17 12:44 Hypersegmented Neuts Not Reportable 11/23/17 12:44 Hyposegmented Neuts Not Reportable 11/23/17 12:44 Hypogranular Neuts Not Reportable 11/23/17 12:44 Smudge Cells Not Reportable 11/23/17 12:44 Toxic Granulation Not Reportable 11/23/17 12:44 Toxic Vacuolation Not Reportable 11/23/17 12:44 Dohle Bodies Not Reportable 11/23/17 12:44 Pelger-Huet Anomaly Not Reportable 11/23/17 12:44 Erika Rods Not Reportable 11/23/17 12:44 Platelet Estimate Consistent w auto 11/23/17 12:44 Clumped Platelets Not Reportable 11/23/17 12:44 Plt Clumps, EDTA Not Reportable 11/23/17 12:44 Large Platelets Not Reportable 11/23/17 12:44 Giant Platelets Not Reportable 11/23/17 12:44 Platelet Satelliting Not Reportable 11/23/17 12:44 Plt Morphology Comment Not Reportable 11/23/17 12:44 RBC Morphology Not Reportable 11/23/17 12:44 Dimorphic RBCs Not Reportable 11/23/17 12:44 Polychromasia Rare 11/23/17 12:44 Hypochromasia Not Reportable 11/23/17 12:44 Poikilocytosis Not Reportable 11/23/17 12:44 Anisocytosis 1+ 11/23/17 12:44 Microcytosis Not Reportable 11/23/17 12:44 Macrocytosis 1+ 11/23/17 12:44 Spherocytes Not Reportable 11/23/17 12:44 Pappenheimer Bodies Not Reportable 11/23/17 12:44 Sickle Cells Not Reportable 11/23/17 12:44 Target Cells Not Reportable 11/23/17 12:44 Tear Drop Cells Not Reportable 11/23/17 12:44 Ovalocytes Not Reportable 11/23/17 12:44 Helmet Cells Not Reportable 11/23/17 12:44 [place] Bodies Not Reportable 11/23/17 12:[address] [place] [address] Rings Not Reportable 11/23/17 12:44 [place] Cells Not Reportable 11/23/17 12:44 Bite Cells Not Reportable 11/23/17 12:44 Crenated Cell Not Reportable 11/23/17 12:44 Elliptocytes Not Reportable 11/23/17 12:44 Acanthocytes (Spur) Not Reportable 11/23/17 12:44 Rouleaux Not Reportable 11/23/17 12:44 Hemoglobin C Crystals Not Reportable 11/23/17 12:44 Schistocytes Not Reportable 11/23/17 12:44 Malaria parasites Not Reportable 11/23/17 12:44 Brett Bodies Not Reportable 11/23/17 12:44 Hem Pathologist Commnt No 11/23/17 12:44 PT 15.3 Sec. (12.2-14.9) H 11/23/17 12:44 INR 1.15 (0.87-1.13) H 11/23/17 12:44 APTT 33.9 Sec. (24.2-36.6) 11/23/17 12:44 D-Dimer 1977.37 ng/mlDDU (0-234) H 11/24/17 14:44 POC ABG pH 7.423 (7.35-7.45) 12/03/17 05:59 POC ABG pCO2 53.1 (35-45) H 12/03/17 05:59 POC ABG pO2 60 (80-105) L 12/03/17 05:59 POC ABG HCO3 34.7 12/03/17 05:59 POC ABG Total CO2 36 12/03/17 05:59 POC ABG O2 Sat 91 12/03/17 05:59 POC ABG Base Excess 10 12/03/17 05:59 FiO2 45 % 12/03/17 05:59 Sodium 143 mmol/L (137-145) 11/30/17 03:48 Potassium 3.7 mmol/L (3.6-5.0) 11/30/17 03:48 Chloride 104.1 mmol/L (98-107) 11/30/17 03:48 Carbon Dioxide 27 mmol/L (22-30) 11/30/17 03:48 Anion Gap 16 mmol/L 11/30/17 03:48 BUN 16 mg/dL (7-17) 11/30/17 03:48 Creatinine 1.2 mg/dL (0.7-1.2) 11/30/17 03:48 Estimated GFR 46 ml/min 11/30/17 03:48 BUN/Creatinine Ratio 13 % 11/30/17 03:48 Glucose 121 mg/dL (65-100) H 11/30/17 03:48 POC Glucose 205 (70-105) H 12/06/17 06:09 Lactic Acid 2.00 mmol/L (0.7-2.0) 11/25/17 10:25 Calcium 7.6 mg/dL (8.4-10.2) L 11/30/17 03:48 Magnesium 1.90 mg/dL (1.7-2.3) 11/28/17 03:17 Total Bilirubin 0.60 mg/dL (0.1-1.2) 11/25/17 03:02 Direct Bilirubin 0.2 mg/dL (0-0.2) 11/25/17 03:02 Indirect Bilirubin 0.4 mg/dL 11/25/17 03:02 AST 300 units/L (5-40) H 11/25/17 03:02 ALT 561 units/L (7-56) H 11/25/17 03:02 Alkaline Phosphatase 54 units/L (35-129) 11/25/17 03:02 Troponin T < 0.010 ng/mL (0.00-0.029) 11/23/17 12:44 C-Reactive Protein 13.70 mg/dL (0.00-1.30) H 11/27/17 16:18 Total Protein 4.5 g/dL (6.3-8.2) L 11/25/17 03:02 Albumin 2.4 g/dL (3.9-5) L 11/25/17 03:02 Albumin/Globulin Ratio 1.1 % 11/25/17 03:02 Urine Color Yellow (Yellow) 11/23/17 13:39 Urine Turbidity Clear (Clear) 11/23/17 13:39 Urine pH 5.0 (5.0-7.0) 11/23/17 13:39 Ur Specific [place] 1.020 (1.003-1.030) 11/23/17 13:39 Urine Protein 30 mg/dl mg/dL (Negative) 11/23/17 13:39 Urine Glucose (UA) Neg mg/dL (Negative) 11/23/17 13:39 Urine Ketones Neg mg/dL (Negative) 11/23/17 13:39 Urine Blood Neg (Negative) 11/23/17 13:39 Urine Nitrite Neg (Negative) 11/23/17 13:39 Urine Bilirubin Neg (Negative) 11/23/17 13:39 Urine Urobilinogen 2.0 mg/dL (<2.0) 11/23/17 13:39 Ur Leukocyte Esterase Neg (Negative) 11/23/17 13:39 Urine WBC (Auto) 5.0 /HPF (0.0-6.0) 11/23/17 13:39 Urine RBC (Auto) 1.0 /HPF (0.0-6.0) 11/23/17 13:39 U Epithel Cells (Auto) 1.0 /HPF (0-13.0) 11/23/17 13:39 Urine Bacteria (Auto) 1+ /HPF (Negative) 11/23/17 13:39 Hyaline Casts 11 /LPF 11/23/17 13:39 Urine Mucus 2+ /HPF 11/23/17 13:39 Salicylates < 0.3 mg/dL (2.8-20.0) L 11/23/17 15:54 Urine Opiates Screen Presumptive positive 11/23/17 13:39 Urine Methadone Screen Presumptive negative 11/23/17 13:39 Acetaminophen < 15.0 ug/mL (10.0-30.0) 11/23/17 15:54 Ur Barbiturates Screen Presumptive negative 11/23/17 13:39 Levetiracetam 30.0 mcg/mL 11/25/17 17:30 Ur Phencyclidine Scrn Presumptive negative 11/23/17 13:39 Ur Amphetamines Screen Presumptive negative 11/23/17 13:39 U Benzodiazepines Scrn Presumptive positive 11/23/17 13:39 Urine Cocaine Screen Presumptive negative 11/23/17 13:39 U Marijuana (THC) Screen Presumptive negative 11/23/17 13:39 Drugs of Abuse Note Disclamer 11/23/17 13:39 Miscellaneous Test Flexitest 1 H 11/28/17 09:23
--- NOTE | 2017-12-06 17:06 | Progress Note ---
Assessment and Plan Acute hypoxemic respiratory failure, on mechanical ventilatory support. Status post cardiac arrest. Likely aspiration pneumonia. Acute encephalopathy with myoclonic jerks Acute exacerbation of chronic obstructive pulmonary disease. h/o Nicotine dependence/Tobacco use disorder. Obesity. Hypertension. History of alcohol abuse - continue full MVS - Neurology notes reviewed, for repeat CT head and EEG in view of spontaneous respirations yesterday - continue aspiration precautions / address VAP bundle daily - continue bronchodilators and pulmonary hygiene - continue to wean oxygen for sats > 90% - NGT to LIS for now - continue GI & VTE prophylaxis - continue empiric antibiotics and follow C&S - continue other care per attending/ other consultants ....remains critically ill on MVS and at high risk for further deterioration including ..35' CCT Discussed with Neurology in detail, and patient's brother. we will need to have discussions with the son as to goals of care, since he is the POA. Disucssed with RT, RN and the team on interdisciplinary rounds. Subjective Date of service: 12/06/17 Principal diagnosis: Acute Hypoxemic Resp Failure; S/P Cardiac Arrest; Acute Encephalopathy Interval history: unresponsive following cardiopulmonary arrest, acute hypoxic respiratory failure, sepsis History of present illness per medical records: This 56-year-old right handed (per son) white female was admitted yesterday having last been normal 6 AM yesterday morning according to her roommate (per ER notes here). Her son states she may have been down for several hours before found again. EMS found her to be cold, pulseless and in asystole area they were unable to intubate her but eventually got accompanied to be in. They have difficulty getting an IV established until just prior to arriving at the ER and at that time she got 1 dose of epinephrine though was still pulseless and unresponsive at the ER with emesis filling the Combitube. Pupils were stated to be fixed and dilated with no withdrawal to pain. She was then intubated. She was given 1 dose of epinephrine and 1 of sodium bicarbonate during ACLS protocol. She had lactic acidosis of about 16, elevated liver enzymes and ABG showing respiratory acidosis. CT scan is read as normal but to me may be showing posterior effaced sulci. She was started on Keppra 750 mg IV every 12. She was noted to have some history of COPD and alcohol abuse. Her son has a bag of her medications from home including multiple inhalers (Combivent, Advair , Ventolin) as well as Mobic, Robitussin-DM generic syrup, and ipratropium dose apparently for nebulizer Patient was seen and examined. Vitals, labs, medications, chart, imaging was reviewed. No acute overnight events were reported. She remains orally intubated on mechanical ventilatory support. Discussed with RT and RN at the bedside Family requesting transfer to [facility] for a second opinion Objective - Exam Narrative Exam: Intubated and mechanical ventilation.. The patient appeared well nourished and normally developed. Vital signs as documented. Head exam is unremarkable. No scleral icterus . Neck is without jugular venous distension, thyromegaly, or carotid bruits. Lungs are clear to auscultation. Cardiac exam reveals regular rate and Rhythm. First and second heart sounds normal. No murmurs, rubs or gallops. Abdominal exam reveals normal bowel sounds, no masses, no organomegaly and no aortic enlargement. Extremities are nonedematous and both femoral and pedal pulses are normal. 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 Vital Signs - 12hr 12/06/17 12/06/17 12/06/17 06:00 07:00 07:58 Temperature Pulse Rate 91 H 89 Pulse Rate [ Anterior Bilateral Throughout] Pulse Rate [ 89 From Monitor] Respiratory 18 18 Rate Respiratory Rate [Anterior Bilateral Throughout] Blood Pressure 120/73 119/76 O2 Sat by Pulse 97 96 Oximetry 12/06/17 12/06/17 12/06/17 08:00 08:19 08:23 Temperature 99.5 F Pulse Rate 90 90 Pulse Rate [ 90 Anterior Bilateral Throughout] Pulse Rate [ From Monitor] Respiratory 18 Rate Respiratory 18 Rate [Anterior Bilateral Throughout] Blood Pressure 128/74 128/74 O2 Sat by Pulse 96 92 Oximetry 12/06/17 12/06/17 12/06/17 08:30 09:00 10:00 Temperature Pulse Rate 92 H 97 H Pulse Rate [ 90 Anterior Bilateral Throughout] Pulse Rate [ From Monitor] Respiratory 18 17 Rate Respiratory 18 Rate [Anterior Bilateral Throughout] Blood Pressure 128/74 117/72 O2 Sat by Pulse 93 96 Oximetry 12/06/17 12/06/17 12/06/17 11:00 12:00 13:00 Temperature 100.4 F H Pulse Rate 99 H 99 H 99 H Pulse Rate [ Anterior Bilateral Throughout] Pulse Rate [ 99 H From Monitor] Respiratory 21 20 19 Rate Respiratory Rate [Anterior Bilateral Throughout] Blood Pressure 191/89 158/83 151/79 O2 Sat by Pulse 94 93 93 Oximetry 12/06/17 12/06/17 12/06/17 13:03 15:48 16:10 Temperature 99.2 F Pulse Rate 99 H 97 H Pulse Rate [ Anterior Bilateral Throughout] Pulse Rate [ From Monitor] Respiratory Rate Respiratory Rate [Anterior Bilateral Throughout] Blood Pressure 151/79 129/69 O2 Sat by Pulse 93 95 Oximetry 12/06/17 12/06/17 16:12 16:25 Temperature Pulse Rate Pulse Rate [ 97 H 96 H Anterior Bilateral Throughout] Pulse Rate [ From Monitor] Respiratory Rate Respiratory 18 18 Rate [Anterior Bilateral Throughout] Blood Pressure O2 Sat by Pulse Oximetry Constitutional: appears uncomfortable, other (obtunded) Eyes: non-icteric ENT: oropharynx moist Neck: supple, no lymphadenopathy, no JVD, other (no thyromegaly) Effort: mildly labored Ascultation: Bilateral: diminished breath sounds, rhonchi Percussion: Bilateral: not dull Cardiovascular: regular rate and rhythm, other (no rubs or murmurs) Gastrointestinal: hypoactive bowel sounds, soft, non-tender, non-distended, other (no palapble HSM) Integumentary: normal Extremities: no cyanosis, pink and warm, pulses normal, edema Neurologic: pupils equal and round, unable to assess Psychiatric: other (unable to assess) CBC and BMP: 12/03/17 20:02 11/30/17 03:48 ABG, PT/INR, D-dimer: ABG POC ABG pH 7.423 (7.35-7.45) 12/03/17 05:59 POC ABG pCO2 53.1 (35-45) H 12/03/17 05:59 POC ABG pO2 60 (80-105) L 12/03/17 05:59 POC ABG HCO3 34.7 12/03/17 05:59 POC ABG Total CO2 36 12/03/17 05:59 POC ABG O2 Sat 91 12/03/17 05:59 PT/INR, D-dimer PT 15.3 Sec. (12.2-14.9) H 11/23/17 12:44 INR 1.15 (0.87-1.13) H 11/23/17 12:44 D-Dimer 1977.37 ng/mlDDU (0-234) H 11/24/17 14:44 Abnormal lab findings: Abnormal Labs 11/23/17 11/23/17 11/23/17 12:44 12:44 12:44 WBC 13.0 H RBC Hgb Hct 46.1 H MCV 112 H MCH 33 H MCHC 29 L RDW 18.5 H Plt Count Lymph % (Auto) Nye % (Auto) Eos % (Auto) Lymph # Nye # Eos # Seg Neutrophils % Seg Neuts % (Manual) 71.0 H Monocytes % (Manual) 8.0 H Nucleated RBC % 6.0 H Seg Neutrophils # Seg Neutrophils # Man 9.2 H Monocytes # (Manual) 1.0 H PT 15.3 H INR 1.15 H D-Dimer POC ABG pH POC ABG pCO2 POC ABG pO2 Sodium Potassium 5.4 H Chloride 85.2 L Carbon Dioxide BUN 19 H Creatinine 1.3 H Glucose 175 H POC Glucose Lactic Acid Calcium AST 310 H ALT 262 H C-Reactive Protein Total Protein 5.7 L Albumin 2.9 L Salicylates Miscellaneous Test 11/23/17 11/23/17 11/23/17 12:44 13:23 15:54 WBC RBC Hgb Hct MCV MCH MCHC RDW Plt Count Lymph % (Auto) Nye % (Auto) Eos % (Auto) Lymph # Nye # Eos # Seg Neutrophils % Seg Neuts % (Manual) Monocytes % (Manual) Nucleated RBC % Seg Neutrophils # Seg Neutrophils # Man Monocytes # (Manual) PT INR D-Dimer POC ABG pH 7.035 L POC ABG pCO2 99.1 H POC ABG pO2 343 H Sodium Potassium Chloride Carbon Dioxide BUN Creatinine Glucose POC Glucose Lactic Acid 16.10 H* Calcium AST ALT C-Reactive Protein Total Protein Albumin Salicylates < 0.3 L Miscellaneous Test 11/23/17 11/24/17 11/24/17 16:42 04:03 04:03 WBC 16.8 H RBC Hgb 15.7 H Hct 48.9 H MCV 101 H MCH MCHC RDW 16.5 H Plt Count Lymph % (Auto) 5.2 L Nye % (Auto) Eos % (Auto) Lymph # 0.9 L Nye # 0.9 H Eos # Seg Neutrophils % 89.1 H Seg Neuts % (Manual) Monocytes % (Manual) Nucleated RBC % Seg Neutrophils # 14.9 H Seg Neutrophils # Man Monocytes # (Manual) PT INR D-Dimer POC ABG pH POC ABG pCO2 POC ABG pO2 55 L Sodium Potassium Chloride 96.0 L Carbon Dioxide 33 H D BUN 28 H Creatinine 1.5 H Glucose 108 H POC Glucose Lactic Acid Calcium 7.7 L AST 1091 H ALT 986 H C-Reactive Protein Total Protein 5.0 L Albumin 2.8 L Salicylates Miscellaneous Test 11/24/17 11/24/17 11/24/17 05:55 13:29 13:29 WBC RBC Hgb Hct MCV MCH MCHC RDW Plt Count Lymph % (Auto) Nye % (Auto) Eos % (Auto) Lymph # Nye # Eos # Seg Neutrophils % Seg Neuts % (Manual) Monocytes % (Manual) Nucleated RBC % Seg Neutrophils # Seg Neutrophils # Man Monocytes # (Manual) PT INR D-Dimer POC ABG pH 7.469 H POC ABG pCO2 52.3 H POC ABG pO2 69 L Sodium Potassium Chloride Carbon Dioxide BUN Creatinine Glucose POC Glucose Lactic Acid 3.20 H* Calcium AST ALT C-Reactive Protein 9.20 H Total Protein Albumin Salicylates Miscellaneous Test 11/24/17 11/24/17 11/25/17 14:44 20:55 01:55 WBC RBC Hgb Hct MCV MCH MCHC RDW Plt Count Lymph % (Auto) Nye % (Auto) Eos % (Auto) Lymph # Nye # Eos # Seg Neutrophils % Seg Neuts % (Manual) Monocytes % (Manual) Nucleated RBC % Seg Neutrophils # Seg Neutrophils # Man Monocytes # (Manual) PT INR D-Dimer 1977.37 H POC ABG pH 7.471 H POC ABG pCO2 56.2 H POC ABG pO2 Sodium Potassium Chloride Carbon Dioxide BUN Creatinine Glucose POC Glucose Lactic Acid 3.00 H* Calcium AST ALT C-Reactive Protein Total Protein Albumin Salicylates Miscellaneous Test 11/25/17 11/25/17 11/25/17 03:02 03:02 03:02 WBC 16.0 H RBC Hgb Hct MCV 99 H MCH MCHC RDW 16.0 H Plt Count Lymph % (Auto) 11.6 L Nye % (Auto) Eos % (Auto) Lymph # Nye # 1.0 H Eos # Seg Neutrophils % 81.8 H Seg Neuts % (Manual) Monocytes % (Manual) Nucleated RBC % Seg Neutrophils # 13.1 H Seg Neutrophils # Man Monocytes # (Manual) PT INR D-Dimer POC ABG pH POC ABG pCO2 POC ABG pO2 Sodium 148 H Potassium Chloride Carbon Dioxide 35 H BUN 30 H Creatinine 1.9 H Glucose 106 H POC Glucose Lactic Acid 2.90 H* Calcium 7.0 L AST ALT C-Reactive Protein Total Protein Albumin Salicylates Miscellaneous Test 11/25/17 11/25/17 11/25/17 03:02 03:35 07:15 WBC RBC Hgb Hct MCV MCH MCHC RDW Plt Count Lymph % (Auto) Nye % (Auto) Eos % (Auto) Lymph # Nye # Eos # Seg Neutrophils % Seg Neuts % (Manual) Monocytes % (Manual) Nucleated RBC % Seg Neutrophils # Seg Neutrophils # Man Monocytes # (Manual) PT INR D-Dimer POC ABG pH 7.494 H POC ABG pCO2 48.1 H POC ABG pO2 Sodium Potassium Chloride Carbon Dioxide BUN Creatinine Glucose POC Glucose Lactic Acid 2.30 H* Calcium AST 300 H ALT 561 H C-Reactive Protein Total Protein 4.5 L Albumin 2.4 L Salicylates Miscellaneous Test 11/26/17 11/26/17 11/26/17 03:26 03:26 03:52 WBC 12.7 H RBC Hgb 14.9 H Hct 45.9 H MCV 98 H MCH MCHC RDW 16.3 H Plt Count 137 L Lymph % (Auto) 10.0 L Nye % (Auto) Eos % (Auto) Lymph # Nye # Eos # Seg Neutrophils % 82.7 H Seg Neuts % (Manual) Monocytes % (Manual) Nucleated RBC % Seg Neutrophils # 10.5 H Seg Neutrophils # Man Monocytes # (Manual) PT INR D-Dimer POC ABG pH 7.475 H POC ABG pCO2 POC ABG pO2 71 L Sodium 150 H Potassium 3.3 L Chloride Carbon Dioxide BUN 22 H Creatinine 1.7 H Glucose 107 H POC Glucose Lactic Acid Calcium 7.5 L AST ALT C-Reactive Protein Total Protein Albumin Salicylates Miscellaneous Test 11/26/17 11/26/17 11/26/17 11:49 17:53 23:56 WBC RBC Hgb Hct MCV MCH MCHC RDW Plt Count Lymph % (Auto) Nye % (Auto) Eos % (Auto) Lymph # Nye # Eos # Seg Neutrophils % Seg Neuts % (Manual) Monocytes % (Manual) Nucleated RBC % Seg Neutrophils # Seg Neutrophils # Man Monocytes # (Manual) PT INR D-Dimer POC ABG pH POC ABG pCO2 POC ABG pO2 Sodium Potassium Chloride Carbon Dioxide BUN Creatinine Glucose POC Glucose 109 H 168 H 145 H Lactic Acid Calcium AST ALT C-Reactive Protein Total Protein Albumin Salicylates Miscellaneous Test 11/27/17 11/27/17 11/27/17 04:22 04:22 04:53 WBC 11.7 H RBC Hgb 15.7 H Hct 49.8 H MCV 100 H MCH MCHC RDW 16.4 H Plt Count 105 L Lymph % (Auto) 7.6 L Nye % (Auto) 8.7 H Eos % (Auto) Lymph # 0.9 L Nye # 1.0 H Eos # Seg Neutrophils % 83.2 H Seg Neuts % (Manual) Monocytes % (Manual) Nucleated RBC % Seg Neutrophils # 9.7 H Seg Neutrophils # Man Monocytes # (Manual) PT INR D-Dimer POC ABG pH POC ABG pCO2 53.1 H POC ABG pO2 70 L Sodium 155 H Potassium Chloride 113.1 H Carbon Dioxide BUN Creatinine 1.5 H Glucose 128 H POC Glucose Lactic Acid Calcium 7.4 L AST ALT C-Reactive Protein Total Protein Albumin Salicylates Miscellaneous Test 11/27/17 11/27/17 11/27/17 05:34 11:27 16:18 WBC RBC Hgb Hct MCV MCH MCHC RDW Plt Count Lymph % (Auto) Nye % (Auto) Eos % (Auto) Lymph # Nye # Eos # Seg Neutrophils % Seg Neuts % (Manual) Monocytes % (Manual) Nucleated RBC % Seg Neutrophils # Seg Neutrophils # Man Monocytes # (Manual) PT INR D-Dimer POC ABG pH POC ABG pCO2 POC ABG pO2 Sodium Potassium Chloride Carbon Dioxide BUN Creatinine Glucose POC Glucose 120 H 129 H Lactic Acid Calcium AST ALT C-Reactive Protein 13.70 H Total Protein Albumin Salicylates Miscellaneous Test 11/27/17 11/27/17 11/28/17 17:19 23:56 03:17 WBC 14.5 H RBC Hgb 15.2 H Hct 48.3 H MCV 99 H MCH MCHC RDW 16.5 H Plt Count 108 L Lymph % (Auto) 9.7 L Nye % (Auto) Eos % (Auto) Lymph # Nye # 1.0 H Eos # Seg Neutrophils % 81.0 H Seg Neuts % (Manual) Monocytes % (Manual) Nucleated RBC % Seg Neutrophils # 11.8 H Seg Neutrophils # Man Monocytes # (Manual) PT INR D-Dimer POC ABG pH POC ABG pCO2 POC ABG pO2 Sodium Potassium Chloride Carbon Dioxide BUN Creatinine Glucose POC Glucose 138 H 125 H Lactic Acid Calcium AST ALT C-Reactive Protein Total Protein Albumin Salicylates Miscellaneous Test 11/28/17 11/28/17 11/28/17 03:17 05:34 06:46 WBC RBC Hgb Hct MCV MCH MCHC RDW Plt Count Lymph % (Auto) Nye % (Auto) Eos % (Auto) Lymph # Nye # Eos # Seg Neutrophils % Seg Neuts % (Manual) Monocytes % (Manual) Nucleated RBC % Seg Neutrophils # Seg Neutrophils # Man Monocytes # (Manual) PT INR D-Dimer POC ABG pH 7.324 L POC ABG pCO2 63.4 H POC ABG pO2 65 L Sodium 150 H Potassium 3.4 L Chloride 107.9 H Carbon Dioxide 31 H BUN 19 H Creatinine 1.3 H Glucose 126 H POC Glucose 132 H Lactic Acid Calcium 7.7 L AST ALT C-Reactive Protein Total Protein Albumin Salicylates Miscellaneous Test 11/28/17 11/28/17 11/28/17 09:23 12:17 17:20 WBC RBC Hgb Hct MCV MCH MCHC RDW Plt Count Lymph % (Auto) Nye % (Auto) Eos % (Auto) Lymph # Nye # Eos # Seg Neutrophils % Seg Neuts % (Manual) Monocytes % (Manual) Nucleated RBC % Seg Neutrophils # Seg Neutrophils # Man Monocytes # (Manual) PT INR D-Dimer POC ABG pH POC ABG pCO2 POC ABG pO2 Sodium Potassium Chloride Carbon Dioxide BUN Creatinine Glucose POC Glucose 142 H 136 H Lactic Acid Calcium AST ALT C-Reactive Protein Total Protein Albumin Salicylates Miscellaneous Test Flexitest 1 H 11/29/17 11/29/17 11/29/17 00:12 04:36 04:47 WBC 14.1 H RBC 5.32 H Hgb 16.4 H Hct 51.2 H MCV MCH MCHC RDW 15.8 H Plt Count 77 L Lymph % (Auto) 7.6 L Nye % (Auto) Eos % (Auto) Lymph # 1.1 L Nye # 0.9 H Eos # 0.5 H Seg Neutrophils % 81.5 H Seg Neuts % (Manual) Monocytes % (Manual) Nucleated RBC % Seg Neutrophils # 11.5 H Seg Neutrophils # Man Monocytes # (Manual) PT INR D-Dimer POC ABG pH POC ABG pCO2 POC ABG pO2 61 L Sodium Potassium Chloride Carbon Dioxide BUN Creatinine Glucose POC Glucose 119 H Lactic Acid Calcium AST ALT C-Reactive Protein Total Protein Albumin Salicylates Miscellaneous Test 11/29/17 11/29/17 11/29/17 04:47 05:29 11:48 WBC RBC Hgb Hct MCV MCH MCHC RDW Plt Count Lymph % (Auto) Nye % (Auto) Eos % (Auto) Lymph # Nye # Eos # Seg Neutrophils % Seg Neuts % (Manual) Monocytes % (Manual) Nucleated RBC % Seg Neutrophils # Seg Neutrophils # Man Monocytes # (Manual) PT INR D-Dimer POC ABG pH POC ABG pCO2 POC ABG pO2 Sodium Potassium Chloride Carbon Dioxide BUN 18 H Creatinine Glucose 119 H POC Glucose 128 H 128 H Lactic Acid Calcium 8.2 L AST ALT C-Reactive Protein Total Protein Albumin Salicylates Miscellaneous Test 11/29/17 11/29/17 11/30/17 17:32 17:39 03:48 WBC 13.5 H RBC Hgb 15.4 H Hct 47.2 H MCV MCH MCHC RDW 16.3 H Plt Count Lymph % (Auto) 10.5 L Nye % (Auto) 7.7 H Eos % (Auto) Lymph # Nye # 1.0 H Eos # 0.5 H Seg Neutrophils % 76.8 H Seg Neuts % (Manual) Monocytes % (Manual) Nucleated RBC % Seg Neutrophils # 10.4 H Seg Neutrophils # Man Monocytes # (Manual) PT INR D-Dimer POC ABG pH POC ABG pCO2 51.6 H POC ABG pO2 345 H Sodium Potassium Chloride Carbon Dioxide BUN Creatinine Glucose POC Glucose 124 H Lactic Acid Calcium AST ALT C-Reactive Protein Total Protein Albumin Salicylates Miscellaneous Test 11/30/17 11/30/17 11/30/17 03:48 03:52 23:37 WBC RBC Hgb Hct MCV MCH MCHC RDW Plt Count Lymph % (Auto) Nye % (Auto) Eos % (Auto) Lymph # Nye # Eos # Seg Neutrophils % Seg Neuts % (Manual) Monocytes % (Manual) Nucleated RBC % Seg Neutrophils # Seg Neutrophils # Man Monocytes # (Manual) PT INR D-Dimer POC ABG pH 7.503 H POC ABG pCO2 POC ABG pO2 65 L Sodium Potassium Chloride Carbon Dioxide BUN Creatinine Glucose 121 H POC Glucose 140 H Lactic Acid Calcium 7.6 L AST ALT C-Reactive Protein Total Protein Albumin Salicylates Miscellaneous Test 12/01/17 12/01/17 12/01/17 03:17 05:30 12:37 WBC RBC Hgb Hct MCV MCH MCHC RDW Plt Count Lymph % (Auto) Nye % (Auto) Eos % (Auto) Lymph # Nye # Eos # Seg Neutrophils % Seg Neuts % (Manual) Monocytes % (Manual) Nucleated RBC % Seg Neutrophils # Seg Neutrophils # Man Monocytes # (Manual) PT INR D-Dimer POC ABG pH POC ABG pCO2 52.7 H POC ABG pO2 64 L Sodium Potassium Chloride Carbon Dioxide BUN Creatinine Glucose POC Glucose 171 H 175 H Lactic Acid Calcium AST ALT C-Reactive Protein Total Protein Albumin Salicylates Miscellaneous Test 12/01/17 12/02/17 12/02/17 17:41 00:01 03:17 WBC RBC Hgb Hct MCV MCH MCHC RDW Plt Count Lymph % (Auto) Nye % (Auto) Eos % (Auto) Lymph # Nye # Eos # Seg Neutrophils % Seg Neuts % (Manual) Monocytes % (Manual) Nucleated RBC % Seg Neutrophils # Seg Neutrophils # Man Monocytes # (Manual) PT INR D-Dimer POC ABG pH POC ABG pCO2 51.5 H POC ABG pO2 67 L Sodium Potassium Chloride Carbon Dioxide BUN Creatinine Glucose POC Glucose 165 H 184 H Lactic Acid Calcium AST ALT C-Reactive Protein Total Protein Albumin Salicylates Miscellaneous Test 12/02/17 12/02/17 12/02/17 05:54 11:44 18:04 WBC RBC Hgb Hct MCV MCH MCHC RDW Plt Count Lymph % (Auto) Nye % (Auto) Eos % (Auto) Lymph # Nye # Eos # Seg Neutrophils % Seg Neuts % (Manual) Monocytes % (Manual) Nucleated RBC % Seg Neutrophils # Seg Neutrophils # Man Monocytes # (Manual) PT INR D-Dimer POC ABG pH POC ABG pCO2 POC ABG pO2 Sodium Potassium Chloride Carbon Dioxide BUN Creatinine Glucose POC Glucose 208 H 175 H 146 H Lactic Acid Calcium AST ALT C-Reactive Protein Total Protein Albumin Salicylates Miscellaneous Test 12/03/17 12/03/17 12/03/17 00:16 05:59 12:09 WBC RBC Hgb Hct MCV MCH MCHC RDW Plt Count Lymph % (Auto) Nye % (Auto) Eos % (Auto) Lymph # Nye # Eos # Seg Neutrophils % Seg Neuts % (Manual) Monocytes % (Manual) Nucleated RBC % Seg Neutrophils # Seg Neutrophils # Man Monocytes # (Manual) PT INR D-Dimer POC ABG pH POC ABG pCO2 53.1 H POC ABG pO2 60 L Sodium Potassium Chloride Carbon Dioxide BUN Creatinine Glucose POC Glucose 135 H 137 H Lactic Acid Calcium AST ALT C-Reactive Protein Total Protein Albumin Salicylates Miscellaneous Test 12/03/17 12/03/17 12/03/17 17:19 20:02 23:30 WBC 13.3 H RBC Hgb 15.1 H Hct 47.0 H MCV MCH MCHC RDW 15.8 H Plt Count Lymph % (Auto) 11.6 L Nye % (Auto) Eos % (Auto) 4.5 H Lymph # Nye # Eos # 0.6 H Seg Neutrophils % 76.6 H Seg Neuts % (Manual) Monocytes % (Manual) Nucleated RBC % Seg Neutrophils # 10.2 H Seg Neutrophils # Man Monocytes # (Manual) PT INR D-Dimer POC ABG pH POC ABG pCO2 POC ABG pO2 Sodium Potassium Chloride Carbon Dioxide BUN Creatinine Glucose POC Glucose 134 H 118 H Lactic Acid Calcium AST ALT C-Reactive Protein Total Protein Albumin Salicylates Miscellaneous Test 12/04/17 12/04/17 12/04/17 06:07 11:54 17:20 WBC RBC Hgb Hct MCV MCH MCHC RDW Plt Count Lymph % (Auto) Nye % (Auto) Eos % (Auto) Lymph # Nye # Eos # Seg Neutrophils % Seg Neuts % (Manual) Monocytes % (Manual) Nucleated RBC % Seg Neutrophils # Seg Neutrophils # Man Monocytes # (Manual) PT INR D-Dimer POC ABG pH POC ABG pCO2 POC ABG pO2 Sodium Potassium Chloride Carbon Dioxide BUN Creatinine Glucose POC Glucose 163 H 154 H 143 H Lactic Acid Calcium AST ALT C-Reactive Protein Total Protein Albumin Salicylates Miscellaneous Test 12/04/17 12/05/17 12/05/17 23:51 06:14 11:36 WBC RBC Hgb Hct MCV MCH MCHC RDW Plt Count Lymph % (Auto) Nye % (Auto) Eos % (Auto) Lymph # Nye # Eos # Seg Neutrophils % Seg Neuts % (Manual) Monocytes % (Manual) Nucleated RBC % Seg Neutrophils # Seg Neutrophils # Man Monocytes # (Manual) PT INR D-Dimer POC ABG pH POC ABG pCO2 POC ABG pO2 Sodium Potassium Chloride Carbon Dioxide BUN Creatinine Glucose POC Glucose 139 H 158 H 173 H Lactic Acid Calcium AST ALT C-Reactive Protein Total Protein Albumin Salicylates Miscellaneous Test 12/05/17 12/06/17 12/06/17 17:45 00:12 06:09 WBC RBC Hgb Hct MCV MCH MCHC RDW Plt Count Lymph % (Auto) Nye % (Auto) Eos % (Auto) Lymph # Nye # Eos # Seg Neutrophils % Seg Neuts % (Manual) Monocytes % (Manual) Nucleated RBC % Seg Neutrophils # Seg Neutrophils # Man Monocytes # (Manual) PT INR D-Dimer POC ABG pH POC ABG pCO2 POC ABG pO2 Sodium Potassium Chloride Carbon Dioxide BUN Creatinine Glucose POC Glucose 148 H 148 H 205 H Lactic Acid Calcium AST ALT C-Reactive Protein Total Protein Albumin Salicylates Miscellaneous Test 12/06/17 11:58 WBC RBC Hgb Hct MCV MCH MCHC RDW Plt Count Lymph % (Auto) Nye % (Auto) Eos % (Auto) Lymph # Nye # Eos # Seg Neutrophils % Seg Neuts % (Manual) Monocytes % (Manual) Nucleated RBC % Seg Neutrophils # Seg Neutrophils # Man Monocytes # (Manual) PT INR D-Dimer POC ABG pH POC ABG pCO2 POC ABG pO2 Sodium Potassium Chloride Carbon Dioxide BUN Creatinine Glucose POC Glucose 203 H Lactic Acid Calcium AST ALT C-Reactive Protein Total Protein Albumin Salicylates Miscellaneous Test Allied health notes reviewed: nursing
[2017-12-06] MEDS: ATIVAN IV PRN (22:08)
[2017-12-07] MEDS: KEPPRA PO SCH ×5 (00:04→18:27)
[2017-12-07] MEDS: TYLENOL FEEDTUBE PRN (00:05)
[2017-12-07] MEDS: DUONEB *Not for PRN Use IH SCH ×4 (04:57→23:46)
[2017-12-07] MEDS: HEPARIN SUB-Q SCH ×3 (06:08→23:16)
[2017-12-07] MEDS: PEPCID PO SCH ×2 (09:12→23:16)
--- NOTE | 2017-12-07 10:27 | Progress Note ---
Assessment and Plan Acute hypoxemic respiratory failure, on mechanical ventilatory support. Status post cardiac arrest. Likely aspiration pneumonia. Acute encephalopathy with myoclonic jerks at this point, but with evidence of brainstem function. Acute exacerbation of chronic obstructive pulmonary disease. Tobacco use disorder. Obesity. Hypertension. History of alcohol abuse (Still with some evidence of brainstem activity but dwindling) - continue full MVS acutely - continue to wean oxygen for sats > 90% - stopped versed and watching for tremors/seizures - Encephalopathy w/up ongoing - stopped benadryl for angioedema type tongue swelling (swelling better) - continue GI prophylaxis - continue aspiration precautions / address VAP bundle daily - continue bronchodilators and pulmonary hygiene per RT - continue reglan - continue enteral nutrition - continue GI & VTE prophylaxis - continue empiric AB's and follow C&S - continue other care per attending/ other consultants ...AMS will likely be rate limiting step to extubation; next of kin reportedly contemplating comfort care/withdrawal but still awaiting on other members ....remains critically ill on MVS and at high risk for further deterioration including ..30' CCT Subjective Date of service: 12/07/17 Principal diagnosis: Acute Hypoxemic Resp Failure; S/P Cardiac Arrest; Acute Encephalopathy Interval history: Patient is seen today for: Acute Hypoxemic Resp Failure; S/P Cardiac Arrest; Acute Encephalopathy Seen and examined at bedside; 24hour events reviewed; nursing and respiratory care staff consulted; no adverse overnight events reported to me; reamins on MVS ; remains with severe encephalopathy; no emesis or overt aspiration; no active seizures Objective Vital Signs - 12hr 12/06/17 12/06/17 12/06/17 22:39 23:00 23:36 Temperature Pulse Rate 99 H 99 H 98 H Pulse Rate [ Anterior Bilateral Throughout] Respiratory 17 19 Rate Respiratory Rate [Anterior Bilateral Throughout] Blood Pressure 107/60 99/53 99/53 O2 Sat by Pulse 91 92 91 Oximetry 12/07/17 12/07/17 12/07/17 00:00 00:01 01:00 Temperature 100.9 F H Pulse Rate 98 H 95 H Pulse Rate [ Anterior Bilateral Throughout] Respiratory 18 19 Rate Respiratory Rate [Anterior Bilateral Throughout] Blood Pressure 123/60 126/61 O2 Sat by Pulse 90 92 Oximetry 12/07/17 12/07/17 12/07/17 02:00 03:00 04:00 Temperature 100.2 F H Pulse Rate 93 H 92 H 89 Pulse Rate [ Anterior Bilateral Throughout] Respiratory 18 18 18 Rate Respiratory Rate [Anterior Bilateral Throughout] Blood Pressure 117/63 122/63 128/67 O2 Sat by Pulse 92 92 91 Oximetry 12/07/17 12/07/17 12/07/17 05:00 06:00 07:00 Temperature Pulse Rate 86 85 84 Pulse Rate [ Anterior Bilateral Throughout] Respiratory 18 18 18 Rate Respiratory Rate [Anterior Bilateral Throughout] Blood Pressure 131/73 126/78 128/73 O2 Sat by Pulse 92 92 92 Oximetry 12/07/17 12/07/17 12/07/17 08:00 08:17 08:23 Temperature Pulse Rate 83 83 Pulse Rate [ 83 Anterior Bilateral Throughout] Respiratory 18 Rate Respiratory 18 Rate [Anterior Bilateral Throughout] Blood Pressure 136/75 136/75 O2 Sat by Pulse 93 93 Oximetry 12/07/17 12/07/17 08:33 09:00 Temperature Pulse Rate 84 Pulse Rate [ 86 Anterior Bilateral Throughout] Respiratory 18 Rate Respiratory 18 Rate [Anterior Bilateral Throughout] Blood Pressure 134/76 O2 Sat by Pulse 92 Oximetry Constitutional: appears uncomfortable, other (obtunded) Eyes: non-icteric ENT: oropharynx moist Neck: supple, no lymphadenopathy, no JVD, other (no thyromegaly) Effort: mildly labored Ascultation: Bilateral: diminished breath sounds, rhonchi Percussion: Bilateral: not dull Cardiovascular: regular rate and rhythm, other (no rubs or murmurs) Gastrointestinal: hypoactive bowel sounds, soft, non-tender, non-distended, other (no palapble HSM) Integumentary: normal Extremities: no cyanosis, pink and warm, pulses normal, edema Neurologic: pupils equal and round, unable to assess Psychiatric: other (unable to assess) CBC and BMP: 12/09/17 03:40 12/09/17 03:40 ABG, PT/INR, D-dimer: ABG POC ABG pH 7.423 (7.35-7.45) 12/03/17 05:59 POC ABG pCO2 53.1 (35-45) H 12/03/17 05:59 POC ABG pO2 60 (80-105) L 12/03/17 05:59 POC ABG HCO3 34.7 12/03/17 05:59 POC ABG Total CO2 36 12/03/17 05:59 POC ABG O2 Sat 91 12/03/17 05:59 PT/INR, D-dimer PT 15.3 Sec. (12.2-14.9) H 11/23/17 12:44 INR 1.15 (0.87-1.13) H 11/23/17 12:44 D-Dimer 1977.37 ng/mlDDU (0-234) H 11/24/17 14:44 Abnormal lab findings: Abnormal Labs 11/23/17 11/23/17 11/23/17 12:44 12:44 12:44 WBC 13.0 H RBC Hgb Hct 46.1 H MCV 112 H MCH 33 H MCHC 29 L RDW 18.5 H Plt Count Lymph % (Auto) Smith % (Auto) Eos % (Auto) Lymph # Smith # Eos # Seg Neutrophils % Seg Neuts % (Manual) 71.0 H Monocytes % (Manual) 8.0 H Nucleated RBC % 6.0 H Seg Neutrophils # Seg Neutrophils # Man 9.2 H Monocytes # (Manual) 1.0 H PT 15.3 H INR 1.15 H D-Dimer POC ABG pH POC ABG pCO2 POC ABG pO2 Sodium Potassium 5.4 H Chloride 85.2 L Carbon Dioxide BUN 19 H Creatinine 1.3 H Glucose 175 H POC Glucose Lactic Acid Calcium AST 310 H ALT 262 H C-Reactive Protein Total Protein 5.7 L Albumin 2.9 L Salicylates Miscellaneous Test 11/23/17 11/23/17 11/23/17 12:44 13:23 15:54 WBC RBC Hgb Hct MCV MCH MCHC RDW Plt Count Lymph % (Auto) Smith % (Auto) Eos % (Auto) Lymph # Smith # Eos # Seg Neutrophils % Seg Neuts % (Manual) Monocytes % (Manual) Nucleated RBC % Seg Neutrophils # Seg Neutrophils # Man Monocytes # (Manual) PT INR D-Dimer POC ABG pH 7.035 L POC ABG pCO2 99.1 H POC ABG pO2 343 H Sodium Potassium Chloride Carbon Dioxide BUN Creatinine Glucose POC Glucose Lactic Acid 16.10 H* Calcium AST ALT C-Reactive Protein Total Protein Albumin Salicylates < 0.3 L Miscellaneous Test 11/23/17 11/24/17 11/24/17 16:42 04:03 04:03 WBC 16.8 H RBC Hgb 15.7 H Hct 48.9 H MCV 101 H MCH MCHC RDW 16.5 H Plt Count Lymph % (Auto) 5.2 L Smith % (Auto) Eos % (Auto) Lymph # 0.9 L Smith # 0.9 H Eos # Seg Neutrophils % 89.1 H Seg Neuts % (Manual) Monocytes % (Manual) Nucleated RBC % Seg Neutrophils # 14.9 H Seg Neutrophils # Man Monocytes # (Manual) PT INR D-Dimer POC ABG pH POC ABG pCO2 POC ABG pO2 55 L Sodium Potassium Chloride 96.0 L Carbon Dioxide 33 H D BUN 28 H Creatinine 1.5 H Glucose 108 H POC Glucose Lactic Acid Calcium 7.7 L AST 1091 H ALT 986 H C-Reactive Protein Total Protein 5.0 L Albumin 2.8 L Salicylates Miscellaneous Test 11/24/17 11/24/17 11/24/17 05:55 13:29 13:29 WBC RBC Hgb Hct MCV MCH MCHC RDW Plt Count Lymph % (Auto) Smith % (Auto) Eos % (Auto) Lymph # Smith # Eos # Seg Neutrophils % Seg Neuts % (Manual) Monocytes % (Manual) Nucleated RBC % Seg Neutrophils # Seg Neutrophils # Man Monocytes # (Manual) PT INR D-Dimer POC ABG pH 7.469 H POC ABG pCO2 52.3 H POC ABG pO2 69 L Sodium Potassium Chloride Carbon Dioxide BUN Creatinine Glucose POC Glucose Lactic Acid 3.20 H* Calcium AST ALT C-Reactive Protein 9.20 H Total Protein Albumin Salicylates Miscellaneous Test 11/24/17 11/24/17 11/25/17 14:44 20:55 01:55 WBC RBC Hgb Hct MCV MCH MCHC RDW Plt Count Lymph % (Auto) Smith % (Auto) Eos % (Auto) Lymph # Smith # Eos # Seg Neutrophils % Seg Neuts % (Manual) Monocytes % (Manual) Nucleated RBC % Seg Neutrophils # Seg Neutrophils # Man Monocytes # (Manual) PT INR D-Dimer 1977.37 H POC ABG pH 7.471 H POC ABG pCO2 56.2 H POC ABG pO2 Sodium Potassium Chloride Carbon Dioxide BUN Creatinine Glucose POC Glucose Lactic Acid 3.00 H* Calcium AST ALT C-Reactive Protein Total Protein Albumin Salicylates Miscellaneous Test 11/25/17 11/25/17 11/25/17 03:02 03:02 03:02 WBC 16.0 H RBC Hgb Hct MCV 99 H MCH MCHC RDW 16.0 H Plt Count Lymph % (Auto) 11.6 L Smith % (Auto) Eos % (Auto) Lymph # Smith # 1.0 H Eos # Seg Neutrophils % 81.8 H Seg Neuts % (Manual) Monocytes % (Manual) Nucleated RBC % Seg Neutrophils # 13.1 H Seg Neutrophils # Man Monocytes # (Manual) PT INR D-Dimer POC ABG pH POC ABG pCO2 POC ABG pO2 Sodium 148 H Potassium Chloride Carbon Dioxide 35 H BUN 30 H Creatinine 1.9 H Glucose 106 H POC Glucose Lactic Acid 2.90 H* Calcium 7.0 L AST ALT C-Reactive Protein Total Protein Albumin Salicylates Miscellaneous Test 11/25/17 11/25/17 11/25/17 03:02 03:35 07:15 WBC RBC Hgb Hct MCV MCH MCHC RDW Plt Count Lymph % (Auto) Smith % (Auto) Eos % (Auto) Lymph # Smith # Eos # Seg Neutrophils % Seg Neuts % (Manual) Monocytes % (Manual) Nucleated RBC % Seg Neutrophils # Seg Neutrophils # Man Monocytes # (Manual) PT INR D-Dimer POC ABG pH 7.494 H POC ABG pCO2 48.1 H POC ABG pO2 Sodium Potassium Chloride Carbon Dioxide BUN Creatinine Glucose POC Glucose Lactic Acid 2.30 H* Calcium AST 300 H ALT 561 H C-Reactive Protein Total Protein 4.5 L Albumin 2.4 L Salicylates Miscellaneous Test 11/26/17 11/26/17 11/26/17 03:26 03:26 03:52 WBC 12.7 H RBC Hgb 14.9 H Hct 45.9 H MCV 98 H MCH MCHC RDW 16.3 H Plt Count 137 L Lymph % (Auto) 10.0 L Smith % (Auto) Eos % (Auto) Lymph # Smith # Eos # Seg Neutrophils % 82.7 H Seg Neuts % (Manual) Monocytes % (Manual) Nucleated RBC % Seg Neutrophils # 10.5 H Seg Neutrophils # Man Monocytes # (Manual) PT INR D-Dimer POC ABG pH 7.475 H POC ABG pCO2 POC ABG pO2 71 L Sodium 150 H Potassium 3.3 L Chloride Carbon Dioxide BUN 22 H Creatinine 1.7 H Glucose 107 H POC Glucose Lactic Acid Calcium 7.5 L AST ALT C-Reactive Protein Total Protein Albumin Salicylates Miscellaneous Test 11/26/17 11/26/17 11/26/17 11:49 17:53 23:56 WBC RBC Hgb Hct MCV MCH MCHC RDW Plt Count Lymph % (Auto) Smith % (Auto) Eos % (Auto) Lymph # Smith # Eos # Seg Neutrophils % Seg Neuts % (Manual) Monocytes % (Manual) Nucleated RBC % Seg Neutrophils # Seg Neutrophils # Man Monocytes # (Manual) PT INR D-Dimer POC ABG pH POC ABG pCO2 POC ABG pO2 Sodium Potassium Chloride Carbon Dioxide BUN Creatinine Glucose POC Glucose 109 H 168 H 145 H Lactic Acid Calcium AST ALT C-Reactive Protein Total Protein Albumin Salicylates Miscellaneous Test 11/27/17 11/27/17 11/27/17 04:22 04:22 04:53 WBC 11.7 H RBC Hgb 15.7 H Hct 49.8 H MCV 100 H MCH MCHC RDW 16.4 H Plt Count 105 L Lymph % (Auto) 7.6 L Smith % (Auto) 8.7 H Eos % (Auto) Lymph # 0.9 L Smith # 1.0 H Eos # Seg Neutrophils % 83.2 H Seg Neuts % (Manual) Monocytes % (Manual) Nucleated RBC % Seg Neutrophils # 9.7 H Seg Neutrophils # Man Monocytes # (Manual) PT INR D-Dimer POC ABG pH POC ABG pCO2 53.1 H POC ABG pO2 70 L Sodium 155 H Potassium Chloride 113.1 H Carbon Dioxide BUN Creatinine 1.5 H Glucose 128 H POC Glucose Lactic Acid Calcium 7.4 L AST ALT C-Reactive Protein Total Protein Albumin Salicylates Miscellaneous Test 11/27/17 11/27/17 11/27/17 05:34 11:27 16:18 WBC RBC Hgb Hct MCV MCH MCHC RDW Plt Count Lymph % (Auto) Smith % (Auto) Eos % (Auto) Lymph # Smith # Eos # Seg Neutrophils % Seg Neuts % (Manual) Monocytes % (Manual) Nucleated RBC % Seg Neutrophils # Seg Neutrophils # Man Monocytes # (Manual) PT INR D-Dimer POC ABG pH POC ABG pCO2 POC ABG pO2 Sodium Potassium Chloride Carbon Dioxide BUN Creatinine Glucose POC Glucose 120 H 129 H Lactic Acid Calcium AST ALT C-Reactive Protein 13.70 H Total Protein Albumin Salicylates Miscellaneous Test 11/27/17 11/27/17 11/28/17 17:19 23:56 03:17 WBC 14.5 H RBC Hgb 15.2 H Hct 48.3 H MCV 99 H MCH MCHC RDW 16.5 H Plt Count 108 L Lymph % (Auto) 9.7 L Smith % (Auto) Eos % (Auto) Lymph # Smith # 1.0 H Eos # Seg Neutrophils % 81.0 H Seg Neuts % (Manual) Monocytes % (Manual) Nucleated RBC % Seg Neutrophils # 11.8 H Seg Neutrophils # Man Monocytes # (Manual) PT INR D-Dimer POC ABG pH POC ABG pCO2 POC ABG pO2 Sodium Potassium Chloride Carbon Dioxide BUN Creatinine Glucose POC Glucose 138 H 125 H Lactic Acid Calcium AST ALT C-Reactive Protein Total Protein Albumin Salicylates Miscellaneous Test 11/28/17 11/28/17 11/28/17 03:17 05:34 06:46 WBC RBC Hgb Hct MCV MCH MCHC RDW Plt Count Lymph % (Auto) Smith % (Auto) Eos % (Auto) Lymph # Smith # Eos # Seg Neutrophils % Seg Neuts % (Manual) Monocytes % (Manual) Nucleated RBC % Seg Neutrophils # Seg Neutrophils # Man Monocytes # (Manual) PT INR D-Dimer POC ABG pH 7.324 L POC ABG pCO2 63.4 H POC ABG pO2 65 L Sodium 150 H Potassium 3.4 L Chloride 107.9 H Carbon Dioxide 31 H BUN 19 H Creatinine 1.3 H Glucose 126 H POC Glucose 132 H Lactic Acid Calcium 7.7 L AST ALT C-Reactive Protein Total Protein Albumin Salicylates Miscellaneous Test 11/28/17 11/28/17 11/28/17 09:23 12:17 17:20 WBC RBC Hgb Hct MCV MCH MCHC RDW Plt Count Lymph % (Auto) Smith % (Auto) Eos % (Auto) Lymph # Smith # Eos # Seg Neutrophils % Seg Neuts % (Manual) Monocytes % (Manual) Nucleated RBC % Seg Neutrophils # Seg Neutrophils # Man Monocytes # (Manual) PT INR D-Dimer POC ABG pH POC ABG pCO2 POC ABG pO2 Sodium Potassium Chloride Carbon Dioxide BUN Creatinine Glucose POC Glucose 142 H 136 H Lactic Acid Calcium AST ALT C-Reactive Protein Total Protein Albumin Salicylates Miscellaneous Test Flexitest 1 H 11/29/17 11/29/17 11/29/17 00:12 04:36 04:47 WBC 14.1 H RBC 5.32 H Hgb 16.4 H Hct 51.2 H MCV MCH MCHC RDW 15.8 H Plt Count 77 L Lymph % (Auto) 7.6 L Smith % (Auto) Eos % (Auto) Lymph # 1.1 L Smith # 0.9 H Eos # 0.5 H Seg Neutrophils % 81.5 H Seg Neuts % (Manual) Monocytes % (Manual) Nucleated RBC % Seg Neutrophils # 11.5 H Seg Neutrophils # Man Monocytes # (Manual) PT INR D-Dimer POC ABG pH POC ABG pCO2 POC ABG pO2 61 L Sodium Potassium Chloride Carbon Dioxide BUN Creatinine Glucose POC Glucose 119 H Lactic Acid Calcium AST ALT C-Reactive Protein Total Protein Albumin Salicylates Miscellaneous Test 11/29/17 11/29/17 11/29/17 04:47 05:29 11:48 WBC RBC Hgb Hct MCV MCH MCHC RDW Plt Count Lymph % (Auto) Smith % (Auto) Eos % (Auto) Lymph # Smith # Eos # Seg Neutrophils % Seg Neuts % (Manual) Monocytes % (Manual) Nucleated RBC % Seg Neutrophils # Seg Neutrophils # Man Monocytes # (Manual) PT INR D-Dimer POC ABG pH POC ABG pCO2 POC ABG pO2 Sodium Potassium Chloride Carbon Dioxide BUN 18 H Creatinine Glucose 119 H POC Glucose 128 H 128 H Lactic Acid Calcium 8.2 L AST ALT C-Reactive Protein Total Protein Albumin Salicylates Miscellaneous Test 11/29/17 11/29/17 11/30/17 17:32 17:39 03:48 WBC 13.5 H RBC Hgb 15.4 H Hct 47.2 H MCV MCH MCHC RDW 16.3 H Plt Count Lymph % (Auto) 10.5 L Smith % (Auto) 7.7 H Eos % (Auto) Lymph # Smith # 1.0 H Eos # 0.5 H Seg Neutrophils % 76.8 H Seg Neuts % (Manual) Monocytes % (Manual) Nucleated RBC % Seg Neutrophils # 10.4 H Seg Neutrophils # Man Monocytes # (Manual) PT INR D-Dimer POC ABG pH POC ABG pCO2 51.6 H POC ABG pO2 345 H Sodium Potassium Chloride Carbon Dioxide BUN Creatinine Glucose POC Glucose 124 H Lactic Acid Calcium AST ALT C-Reactive Protein Total Protein Albumin Salicylates Miscellaneous Test 11/30/17 11/30/17 11/30/17 03:48 03:52 23:37 WBC RBC Hgb Hct MCV MCH MCHC RDW Plt Count Lymph % (Auto) Smith % (Auto) Eos % (Auto) Lymph # Smith # Eos # Seg Neutrophils % Seg Neuts % (Manual) Monocytes % (Manual) Nucleated RBC % Seg Neutrophils # Seg Neutrophils # Man Monocytes # (Manual) PT INR D-Dimer POC ABG pH 7.503 H POC ABG pCO2 POC ABG pO2 65 L Sodium Potassium Chloride Carbon Dioxide BUN Creatinine Glucose 121 H POC Glucose 140 H Lactic Acid Calcium 7.6 L AST ALT C-Reactive Protein Total Protein Albumin Salicylates Miscellaneous Test 12/01/17 12/01/17 12/01/17 03:17 05:30 12:37 WBC RBC Hgb Hct MCV MCH MCHC RDW Plt Count Lymph % (Auto) Smith % (Auto) Eos % (Auto) Lymph # Smith # Eos # Seg Neutrophils % Seg Neuts % (Manual) Monocytes % (Manual) Nucleated RBC % Seg Neutrophils # Seg Neutrophils # Man Monocytes # (Manual) PT INR D-Dimer POC ABG pH POC ABG pCO2 52.7 H POC ABG pO2 64 L Sodium Potassium Chloride Carbon Dioxide BUN Creatinine Glucose POC Glucose 171 H 175 H Lactic Acid Calcium AST ALT C-Reactive Protein Total Protein Albumin Salicylates Miscellaneous Test 12/01/17 12/02/17 12/02/17 17:41 00:01 03:17 WBC RBC Hgb Hct MCV MCH MCHC RDW Plt Count Lymph % (Auto) Smith % (Auto) Eos % (Auto) Lymph # Smith # Eos # Seg Neutrophils % Seg Neuts % (Manual) Monocytes % (Manual) Nucleated RBC % Seg Neutrophils # Seg Neutrophils # Man Monocytes # (Manual) PT INR D-Dimer POC ABG pH POC ABG pCO2 51.5 H POC ABG pO2 67 L Sodium Potassium Chloride Carbon Dioxide BUN Creatinine Glucose POC Glucose 165 H 184 H Lactic Acid Calcium AST ALT C-Reactive Protein Total Protein Albumin Salicylates Miscellaneous Test 12/02/17 12/02/17 12/02/17 05:54 11:44 18:04 WBC RBC Hgb Hct MCV MCH MCHC RDW Plt Count Lymph % (Auto) Smith % (Auto) Eos % (Auto) Lymph # Smith # Eos # Seg Neutrophils % Seg Neuts % (Manual) Monocytes % (Manual) Nucleated RBC % Seg Neutrophils # Seg Neutrophils # Man Monocytes # (Manual) PT INR D-Dimer POC ABG pH POC ABG pCO2 POC ABG pO2 Sodium Potassium Chloride Carbon Dioxide BUN Creatinine Glucose POC Glucose 208 H 175 H 146 H Lactic Acid Calcium AST ALT C-Reactive Protein Total Protein Albumin Salicylates Miscellaneous Test 12/03/17 12/03/17 12/03/17 00:16 05:59 12:09 WBC RBC Hgb Hct MCV MCH MCHC RDW Plt Count Lymph % (Auto) Smith % (Auto) Eos % (Auto) Lymph # Smith # Eos # Seg Neutrophils % Seg Neuts % (Manual) Monocytes % (Manual) Nucleated RBC % Seg Neutrophils # Seg Neutrophils # Man Monocytes # (Manual) PT INR D-Dimer POC ABG pH POC ABG pCO2 53.1 H POC ABG pO2 60 L Sodium Potassium Chloride Carbon Dioxide BUN Creatinine Glucose POC Glucose 135 H 137 H Lactic Acid Calcium AST ALT C-Reactive Protein Total Protein Albumin Salicylates Miscellaneous Test 12/03/17 12/03/17 12/03/17 17:19 20:02 23:30 WBC 13.3 H RBC Hgb 15.1 H Hct 47.0 H MCV MCH MCHC RDW 15.8 H Plt Count Lymph % (Auto) 11.6 L Smith % (Auto) Eos % (Auto) 4.5 H Lymph # Smith # Eos # 0.6 H Seg Neutrophils % 76.6 H Seg Neuts % (Manual) Monocytes % (Manual) Nucleated RBC % Seg Neutrophils # 10.2 H Seg Neutrophils # Man Monocytes # (Manual) PT INR D-Dimer POC ABG pH POC ABG pCO2 POC ABG pO2 Sodium Potassium Chloride Carbon Dioxide BUN Creatinine Glucose POC Glucose 134 H 118 H Lactic Acid Calcium AST ALT C-Reactive Protein Total Protein Albumin Salicylates Miscellaneous Test 12/04/17 12/04/17 12/04/17 06:07 11:54 17:20 WBC RBC Hgb Hct MCV MCH MCHC RDW Plt Count Lymph % (Auto) Smith % (Auto) Eos % (Auto) Lymph # Smith # Eos # Seg Neutrophils % Seg Neuts % (Manual) Monocytes % (Manual) Nucleated RBC % Seg Neutrophils # Seg Neutrophils # Man Monocytes # (Manual) PT INR D-Dimer POC ABG pH POC ABG pCO2 POC ABG pO2 Sodium Potassium Chloride Carbon Dioxide BUN Creatinine Glucose POC Glucose 163 H 154 H 143 H Lactic Acid Calcium AST ALT C-Reactive Protein Total Protein Albumin Salicylates Miscellaneous Test 12/04/17 12/05/17 12/05/17 23:51 06:14 11:36 WBC RBC Hgb Hct MCV MCH MCHC RDW Plt Count Lymph % (Auto) Smith % (Auto) Eos % (Auto) Lymph # Smith # Eos # Seg Neutrophils % Seg Neuts % (Manual) Monocytes % (Manual) Nucleated RBC % Seg Neutrophils # Seg Neutrophils # Man Monocytes # (Manual) PT INR D-Dimer POC ABG pH POC ABG pCO2 POC ABG pO2 Sodium Potassium Chloride Carbon Dioxide BUN Creatinine Glucose POC Glucose 139 H 158 H 173 H Lactic Acid Calcium AST ALT C-Reactive Protein Total Protein Albumin Salicylates Miscellaneous Test 12/05/17 12/06/17 12/06/17 17:45 00:12 06:09 WBC RBC Hgb Hct MCV MCH MCHC RDW Plt Count Lymph % (Auto) Smith % (Auto) Eos % (Auto) Lymph # Smith # Eos # Seg Neutrophils % Seg Neuts % (Manual) Monocytes % (Manual) Nucleated RBC % Seg Neutrophils # Seg Neutrophils # Man Monocytes # (Manual) PT INR D-Dimer POC ABG pH POC ABG pCO2 POC ABG pO2 Sodium Potassium Chloride Carbon Dioxide BUN Creatinine Glucose POC Glucose 148 H 148 H 205 H Lactic Acid Calcium AST ALT C-Reactive Protein Total Protein Albumin Salicylates Miscellaneous Test 12/06/17 12/06/17 12/07/17 11:58 23:36 05:34 WBC RBC Hgb Hct MCV MCH MCHC RDW Plt Count Lymph % (Auto) Smith % (Auto) Eos % (Auto) Lymph # Smith # Eos # Seg Neutrophils % Seg Neuts % (Manual) Monocytes % (Manual) Nucleated RBC % Seg Neutrophils # Seg Neutrophils # Man Monocytes # (Manual) PT INR D-Dimer POC ABG pH POC ABG pCO2 POC ABG pO2 Sodium Potassium Chloride Carbon Dioxide BUN Creatinine Glucose POC Glucose 203 H 161 H 193 H Lactic Acid Calcium AST ALT C-Reactive Protein Total Protein Albumin Salicylates Miscellaneous Test Allied health notes reviewed: nursing
--- NOTE | 2017-12-07 10:43 | Progress Note ---
Assessment and Plan Assessment and plan: S/p cardiopulmonary arrest. Etiology likely secondary to respiratory arrest. - Anoxic encephalopathy; EEG showed no cortical activity - Neurology following Anoxic brain injury: CT and MRI suggest anoxic brain injury. No pupillary reflex. COPD exacerbation. Continue bronchodilators. Sepsis: ID following and previously on IV antibiotics. Completed zosyn 10 days and tamiflu 5 days Etiology most likely central fever +/- influenza +/- pneumonia. Hypernatremia Possible complex partial seizures with secondary generalization. Continue Keppra and Ativan as needed Acute hypercapneic resp failure. Continue mechanical ventilation per pulmonary TAMARA - Resolved Dr. Fonseca discussed with her younger brother, about the prognosis and waiting family members to make decisions, to withdraw care or to make AND. If not, will order brain flow study. History Interval history: This unfortunate 56 year old female who was found pulseless, in asystole on and resuscitated, remains with no neurological function at this time. CT confirms severe anoxic damage from 11/26/17. EEG reveals no cortical activity. She is off all sedation. Patient fits criteria for brain , cortical. Brain stem has function only demonstrated by spontaneous respiration off the ventilator. Hospitalist Physical - Constitutional Vitals: Temp Pulse Resp BP Pulse Ox 100.2 F H 84 18 134/76 92 12/07/17 04:00 12/07/17 09:00 12/07/17 09:00 12/07/17 09:00 12/07/17 09:00 General appearance: Present: other (on mech vent, ) - EENT Eyes: Present: PERRL, EOM intact ENT: hearing intact, clear oral mucosa, dentition normal - Neck Neck: Present: supple, normal ROM - Respiratory Respiratory effort: normal Respiratory: bilateral: CTA - Cardiovascular Rhythm: regular Heart Sounds: Present: S1 & S2. Absent: gallop, rub - Extremities Extremities: no ischemia, No edema, Full ROM - Abdominal General gastrointestinal: soft, non-tender, non-distended, normal bowel sounds - Integumentary Integumentary: Present: clear, warm, dry - Neurologic Neurologic: CNII-XII intact, moves all extremities Results - Labs CBC & Chem 7: 12/03/17 20:02 11/30/17 03:48 Labs: Laboratory Last Values WBC 13.3 K/mm3 (4.5-11.0) H 12/03/17 20:02 RBC 4.86 M/mm3 (3.65-5.03) 12/03/17 20:02 Hgb 15.1 gm/dl (10.1-14.3) H 12/03/17 20:02 Hct 47.0 % (30.3-42.9) H 12/03/17 20:02 MCV 97 fl (79-97) 12/03/17 20:02 MCH 31 pg (28-32) 12/03/17 20:02 MCHC 32 % (30-34) 12/03/17 20:02 RDW 15.8 % (13.2-15.2) H 12/03/17 20:02 Plt Count 396 K/mm3 (140-440) 12/03/17 20:02 Lymph % (Auto) 11.6 % (13.4-35.0) L 12/03/17 20:02 [place] % (Auto) 6.3 % (0.0-7.3) 12/03/17 20:02 Eos % (Auto) 4.5 % (0.0-4.3) H 12/03/17 20:02 Baso % (Auto) 1.0 % (0.0-1.8) 12/03/17 20:02 Lymph # 1.6 K/mm3 (1.2-5.4) 12/03/17 20:02 [place] # 0.8 K/mm3 (0.0-0.8) 12/03/17 20:02 Eos # 0.6 K/mm3 (0.0-0.4) H 12/03/17 20:02 Baso # 0.1 K/mm3 (0.0-0.1) 12/03/17 20:02 Add Manual Diff Complete 11/23/17 12:44 Total Counted 100 11/23/17 12:44 Seg Neutrophils % 76.6 % (40.0-70.0) H 12/03/17 20:02 Seg Neuts % (Manual) 71.0 % (40.0-70.0) H 11/23/17 12:44 Band Neutrophils % 3.0 % 11/23/17 12:44 Lymphocytes % (Manual) 18.0 % (13.4-35.0) 11/23/17 12:44 Reactive Lymphs % (Man) 0 % 11/23/17 12:44 Monocytes % (Manual) 8.0 % (0.0-7.3) H 11/23/17 12:44 Eosinophils % (Manual) 0 % (0.0-4.3) 11/23/17 12:44 Basophils % (Manual) 0 % (0.0-1.8) 11/23/17 12:44 Metamyelocytes % 0 % 11/23/17 12:44 Myelocytes % 0 % 11/23/17 12:44 Promyelocytes % 0 % 11/23/17 12:44 Blast Cells % 0 % 11/23/17 12:44 Nucleated RBC % 6.0 % (0.0-0.9) H 11/23/17 12:44 Seg Neutrophils # 10.2 K/mm3 (1.8-7.7) H 12/03/17 20:02 Seg Neutrophils # Man 9.2 K/mm3 (1.8-7.7) H 11/23/17 12:44 Band Neutrophils # 0.4 K/mm3 11/23/17 12:44 Lymphocytes # (Manual) 2.3 K/mm3 (1.2-5.4) 11/23/17 12:44 Abs React Lymphs (Man) 0.0 K/mm3 11/23/17 12:44 Monocytes # (Manual) 1.0 K/mm3 (0.0-0.8) H 11/23/17 12:44 Eosinophils # (Manual) 0.0 K/mm3 (0.0-0.4) 11/23/17 12:44 Basophils # (Manual) 0.0 K/mm3 (0.0-0.1) 11/23/17 12:44 Metamyelocytes # 0.0 K/mm3 11/23/17 12:44 Myelocytes # 0.0 K/mm3 11/23/17 12:44 Promyelocytes # 0.0 K/mm3 11/23/17 12:44 Blast Cells # 0.0 K/mm3 11/23/17 12:44 WBC Morphology Not Reportable 11/23/17 12:44 Hypersegmented Neuts Not Reportable 11/23/17 12:44 Hyposegmented Neuts Not Reportable 11/23/17 12:44 Hypogranular Neuts Not Reportable 11/23/17 12:44 Smudge Cells Not Reportable 11/23/17 12:44 Toxic Granulation Not Reportable 11/23/17 12:44 Toxic Vacuolation Not Reportable 11/23/17 12:44 Dohle Bodies Not Reportable 11/23/17 12:44 Pelger-Huet Anomaly Not Reportable 11/23/17 12:44 Erika Rods Not Reportable 11/23/17 12:44 Platelet Estimate Consistent w auto 11/23/17 12:44 Clumped Platelets Not Reportable 11/23/17 12:44 Plt Clumps, EDTA Not Reportable 11/23/17 12:44 Large Platelets Not Reportable 11/23/17 12:44 Giant Platelets Not Reportable 11/23/17 12:44 Platelet Satelliting Not Reportable 11/23/17 12:44 Plt Morphology Comment Not Reportable 11/23/17 12:44 RBC Morphology Not Reportable 11/23/17 12:44 Dimorphic RBCs Not Reportable 11/23/17 12:44 Polychromasia Rare 11/23/17 12:44 Hypochromasia Not Reportable 11/23/17 12:44 Poikilocytosis Not Reportable 11/23/17 12:44 Anisocytosis 1+ 11/23/17 12:44 Microcytosis Not Reportable 11/23/17 12:44 Macrocytosis 1+ 11/23/17 12:44 Spherocytes Not Reportable 11/23/17 12:44 Pappenheimer Bodies Not Reportable 11/23/17 12:44 Sickle Cells Not Reportable 11/23/17 12:44 Target Cells Not Reportable 11/23/17 12:44 Tear Drop Cells Not Reportable 11/23/17 12:44 Ovalocytes Not Reportable 11/23/17 12:44 Helmet Cells Not Reportable 11/23/17 12:44 [place] Bodies Not Reportable 11/23/17 12:44 [place] Rings Not Reportable 11/23/17 12:44 [place] Cells Not Reportable 11/23/17 12:44 Bite Cells Not Reportable 11/23/17 12:44 Crenated Cell Not Reportable 11/23/17 12:44 Elliptocytes Not Reportable 11/23/17 12:44 Acanthocytes (Spur) Not Reportable 11/23/17 12:44 Rouleaux Not Reportable 11/23/17 12:44 Hemoglobin C Crystals Not Reportable 11/23/17 12:44 Schistocytes Not Reportable 11/23/17 12:44 Malaria parasites Not Reportable 11/23/17 12:44 Brett Bodies Not Reportable 11/23/17 12:44 Hem Pathologist Commnt No 11/23/17 12:44 PT 15.3 Sec. (12.2-14.9) H 11/23/17 12:44 INR 1.15 (0.87-1.13) H 11/23/17 12:44 APTT 33.9 Sec. (24.2-36.6) 11/23/17 12:44 D-Dimer 1977.37 ng/mlDDU (0-234) H 11/24/17 14:44 POC ABG pH 7.423 (7.35-7.45) 12/03/17 05:59 POC ABG pCO2 53.1 (35-45) H 12/03/17 05:59 POC ABG pO2 60 (80-105) L 12/03/17 05:59 POC ABG HCO3 34.7 12/03/17 05:59 POC ABG Total CO2 36 12/03/17 05:59 POC ABG O2 Sat 91 12/03/17 05:59 POC ABG Base Excess 10 12/03/17 05:59 FiO2 45 % 12/03/17 05:59 Sodium 143 mmol/L (137-145) 11/30/17 03:48 Potassium 3.7 mmol/L (3.6-5.0) 11/30/17 03:48 Chloride 104.1 mmol/L (98-107) 11/30/17 03:48 Carbon Dioxide 27 mmol/L (22-30) 11/30/17 03:48 Anion Gap 16 mmol/L 11/30/17 03:48 BUN 16 mg/dL (7-17) 11/30/17 03:48 Creatinine 1.2 mg/dL (0.7-1.2) 11/30/17 03:48 Estimated GFR 46 ml/min 11/30/17 03:48 BUN/Creatinine Ratio 13 % 11/30/17 03:48 Glucose 121 mg/dL (65-100) H 11/30/17 03:48 POC Glucose 193 (70-105) H 12/07/17 05:34 Lactic Acid 2.00 mmol/L (0.7-2.0) 11/25/17 10:25 Calcium 7.6 mg/dL (8.4-10.2) L 11/30/17 03:48 Magnesium 1.90 mg/dL (1.7-2.3) 11/28/17 03:17 Total Bilirubin 0.60 mg/dL (0.1-1.2) 11/25/17 03:02 Direct Bilirubin 0.2 mg/dL (0-0.2) 11/25/17 03:02 Indirect Bilirubin 0.4 mg/dL 11/25/17 03:02 AST 300 units/L (5-40) H 11/25/17 03:02 ALT 561 units/L (7-56) H 11/25/17 03:02 Alkaline Phosphatase 54 units/L (35-129) 11/25/17 03:02 Troponin T < 0.010 ng/mL (0.00-0.029) 11/23/17 12:44 C-Reactive Protein 13.70 mg/dL (0.00-1.30) H 11/27/17 16:18 Total Protein 4.5 g/dL (6.3-8.2) L 11/25/17 03:02 Albumin 2.4 g/dL (3.9-5) L 11/25/17 03:02 Albumin/Globulin Ratio 1.1 % 11/25/17 03:02 Urine Color Yellow (Yellow) 11/23/17 13:39 Urine Turbidity Clear (Clear) 11/23/17 13:39 Urine pH 5.0 (5.0-7.0) 11/23/17 13:39 Ur Specific [place] 1.020 (1.003-1.030) 11/23/17 13:39 Urine Protein 30 mg/dl mg/dL (Negative) 11/23/17 13:39 Urine Glucose (UA) Neg mg/dL (Negative) 11/23/17 13:39 Urine Ketones Neg mg/dL (Negative) 11/23/17 13:39 Urine Blood Neg (Negative) 11/23/17 13:39 Urine Nitrite Neg (Negative) 11/23/17 13:39 Urine Bilirubin Neg (Negative) 11/23/17 13:39 Urine Urobilinogen 2.0 mg/dL (<2.0) 11/23/17 13:39 Ur Leukocyte Esterase Neg (Negative) 11/23/17 13:39 Urine WBC (Auto) 5.0 /HPF (0.0-6.0) 11/23/17 13:39 Urine RBC (Auto) 1.0 /HPF (0.0-6.0) 11/23/17 13:39 U Epithel Cells (Auto) 1.0 /HPF (0-13.0) 11/23/17 13:39 Urine Bacteria (Auto) 1+ /HPF (Negative) 11/23/17 13:39 Hyaline Casts 11 /LPF 11/23/17 13:39 Urine Mucus 2+ /HPF 11/23/17 13:39 Salicylates < 0.3 mg/dL (2.8-20.0) L 11/23/17 15:54 Urine Opiates Screen Presumptive positive 11/23/17 13:39 Urine Methadone Screen Presumptive negative 11/23/17 13:39 Acetaminophen < 15.0 ug/mL (10.0-30.0) 11/23/17 15:54 Ur Barbiturates Screen Presumptive negative 11/23/17 13:39 Levetiracetam 30.0 mcg/mL 11/25/17 17:30 Ur Phencyclidine Scrn Presumptive negative 11/23/17 13:39 Ur Amphetamines Screen Presumptive negative 11/23/17 13:39 U Benzodiazepines Scrn Presumptive positive 11/23/17 13:39 Urine Cocaine Screen Presumptive negative 11/23/17 13:39 U Marijuana (THC) Screen Presumptive negative 11/23/17 13:39 Drugs of Abuse Note Disclamer 11/23/17 13:39 Miscellaneous Test Flexitest 1 H 11/28/17 09:23
[2017-12-08] MEDS: KEPPRA PO SCH ×5 (00:10→23:40)
[2017-12-08 04:56] LABS: Basophils # (Auto) 0.2 K/mm3 (0.0-0.1); Basophils % (Auto) 1.3 % (0.0-1.8); Eosinophils # (Auto) 0.4 K/mm3 (0.0-0.4); Eosinophils % (Auto) 2.6 % (0.0-4.3); Hematocrit 41.6 % (30.3-42.9); Hemoglobin 13.6 gm/dl (10.1-14.3); Lymphocytes # (Auto) 1.8 K/mm3 (1.2-5.4); Lymphocytes % (Auto) 12.3 % (13.4-35.0); Mean Corpuscular HGB Conc 33 % (30-34); Mean Corpuscular Hemoglobin 31 pg (28-32); Mean Corpuscular Volume 96 fl (79-97); Monocytes # (Auto) 1.2 K/mm3 (0.0-0.8); Platelet Count 518 K/mm3 (140-440); Red Blood Count 4.34 M/mm3 (3.65-5.03); Red Cell Distribution Width 15.8 % (13.2-15.2)
[2017-12-08 05:23] LABS: Calcium 8.8 mg/dL (8.4-10.2)
[2017-12-08] MEDS ORDERED: POTASSIUM CHLORIDE FEEDTUBE ONE ×2 (05:59→18:00)
[2017-12-08] MEDS: HEPARIN SUB-Q SCH ×3 (06:14→21:36)
[2017-12-08] MEDS: DUONEB *Not for PRN Use IH SCH ×2 (07:34→16:36)
--- NOTE | 2017-12-08 08:39 | XRay Report ---
AP ABDOMEN History: Dobbhoff tube placement. Findings: Compared to 11/28/17. The nasogastric tube has been replaced with a Dobbhoff tube which terminates in the body of the stomach. The visualized bowel gas pattern the upper abdomen is normal. The lung bases are adequate aerated. Normal heart size. Impression: The Dobbhoff tube terminates in the mid stomach.
--- NOTE | 2017-12-08 10:20 | Progress Note ---
Assessment and Plan Acute hypoxemic respiratory failure, on mechanical ventilatory support. Status post cardiac arrest. Anoxic brain injury: CT and MRI suggest anoxic brain injury. No pupillary reflex. Likely aspiration pneumonia. Sepsis Acute encephalopathy with myoclonic jerks,toxic, metabolic, anoxic - Anoxic encephalopathy; EEG showed no cortical activity - Neurology following Acute exacerbation of chronic obstructive pulmonary disease. h/o Nicotine dependence/Tobacco use disorder. Obesity. Hypertension. History of alcohol abuse Hypernatremia Possible complex partial seizures with secondary generalization Acute hypercapneic resp failure - continue full MVS - Neurology notes reviewed, for repeat CT head and EEG in view of spontaneous respirations yesterday - continue aspiration precautions / address VAP bundle daily - continue bronchodilators and pulmonary hygiene - continue to wean oxygen for sats > 90% - NGT to LIS for now - continue GI & VTE prophylaxis - continue empiric antibiotics and follow C&S - continue other care per attending/ other consultants ....remains critically ill on MVS and at high risk for further deterioration including ..35' CCT Discussed with Neurology in detail, and patient's brother. Get transcranial flow studies Disucssed with RT, RN and the team on interdisciplinary rounds. Subjective Date of service: 12/08/17 Principal diagnosis: Acute Hypoxemic Resp Failure; S/P Cardiac Arrest; Acute Encephalopathy Interval history: unresponsive following cardiopulmonary arrest, acute hypoxic respiratory failure, sepsis History of present illness per medical records: This 56-year-old right handed (per son) white female was admitted yesterday having last been normal 6 AM yesterday morning according to her roommate (per ER notes here). Her son states she may have been down for several hours before found again. EMS found her to be cold, pulseless and in asystole area they were unable to intubate her but eventually got accompanied to be in. They have difficulty getting an IV established until just prior to arriving at the ER and at that time she got 1 dose of epinephrine though was still pulseless and unresponsive at the ER with emesis filling the Combitube. Pupils were stated to be fixed and dilated with no withdrawal to pain. She was then intubated. She was given 1 dose of epinephrine and 1 of sodium bicarbonate during ACLS protocol. She had lactic acidosis of about 16, elevated liver enzymes and ABG showing respiratory acidosis. CT scan is read as normal but to me may be showing posterior effaced sulci. She was started on Keppra 750 mg IV every 12. She was noted to have some history of COPD and alcohol abuse. Her son has a bag of her medications from home including multiple inhalers (Combivent, Advair , Ventolin) as well as Mobic, Robitussin-DM generic syrup, and ipratropium dose apparently for nebulizer Patient was seen and examined. Vitals, labs, medications, chart, imaging was reviewed. No acute overnight events were reported. She remains orally intubated on mechanical ventilatory support. Discussed with RT and RN at the bedside Had a small bowel feeding tube placed last night. Still has spontaneous breaths over the ventilator Plan to get transcranial nuclear scan today Objective - Exam Narrative Exam: Intubated and mechanical ventilation.. The patient appeared well nourished and normally developed. Vital signs as documented. Head exam is unremarkable. No scleral icterus . Neck is without jugular venous distension, thyromegaly, or carotid bruits. Lungs are clear to auscultation. Cardiac exam reveals regular rate and Rhythm. First and second heart sounds normal. No murmurs, rubs or gallops. Abdominal exam reveals normal bowel sounds, no masses, no organomegaly and no aortic enlargement. Extremities are nonedematous and both femoral and pedal pulses are normal. [employer]: Deeply comatose. Vital Signs - 12hr 12/07/17 12/07/17 12/07/17 23:00 23:46 23:48 Temperature Pulse Rate 93 H 96 H Pulse Rate [ 96 H Anterior Bilateral Throughout] Pulse Rate [ From Monitor] Pulse Rate [ Left Dorsalis Pedis] Pulse Rate [ Left Radial] Pulse Rate [ Right Dorsalis Pedis] Pulse Rate [ Right Radial] Respiratory 18 Rate Respiratory 20 Rate [Anterior Bilateral Throughout] Blood Pressure 117/78 117/78 O2 Sat by Pulse 88 93 Oximetry 12/08/17 12/08/17 12/08/17 00:00 00:03 01:00 Temperature 99.4 F Pulse Rate 94 H 89 Pulse Rate [ 98 H Anterior Bilateral Throughout] Pulse Rate [ From Monitor] Pulse Rate [ Left Dorsalis Pedis] Pulse Rate [ Left Radial] Pulse Rate [ Right Dorsalis Pedis] Pulse Rate [ Right Radial] Respiratory 18 18 Rate Respiratory 20 Rate [Anterior Bilateral Throughout] Blood Pressure 117/78 118/70 O2 Sat by Pulse 84 89 Oximetry 12/08/17 12/08/17 12/08/17 02:00 03:00 04:00 Temperature 98.9 F Pulse Rate 90 91 H 90 Pulse Rate [ Anterior Bilateral Throughout] Pulse Rate [ From Monitor] Pulse Rate [ Left Dorsalis Pedis] Pulse Rate [ Left Radial] Pulse Rate [ Right Dorsalis Pedis] Pulse Rate [ Right Radial] Respiratory 18 18 19 Rate Respiratory Rate [Anterior Bilateral Throughout] Blood Pressure 118/70 170/83 170/83 O2 Sat by Pulse 89 90 89 Oximetry 12/08/17 12/08/17 12/08/17 05:00 06:00 06:33 Temperature Pulse Rate 88 87 Pulse Rate [ Anterior Bilateral Throughout] Pulse Rate [ 89 From Monitor] Pulse Rate [ 89 Left Dorsalis Pedis] Pulse Rate [ 89 Left Radial] Pulse Rate [ 89 Right Dorsalis Pedis] Pulse Rate [ 89 Right Radial] Respiratory 18 18 Rate Respiratory Rate [Anterior Bilateral Throughout] Blood Pressure 131/66 128/65 O2 Sat by Pulse 90 89 89 Oximetry 12/08/17 12/08/17 12/08/17 07:00 07:30 07:34 Temperature Pulse Rate 90 89 Pulse Rate [ 89 Anterior Bilateral Throughout] Pulse Rate [ From Monitor] Pulse Rate [ Left Dorsalis Pedis] Pulse Rate [ Left Radial] Pulse Rate [ Right Dorsalis Pedis] Pulse Rate [ Right Radial] Respiratory 18 Rate Respiratory 18 Rate [Anterior Bilateral Throughout] Blood Pressure 128/71 128/71 O2 Sat by Pulse 91 95 Oximetry 12/08/17 12/08/17 07:49 08:00 Temperature Pulse Rate 90 Pulse Rate [ 90 Anterior Bilateral Throughout] Pulse Rate [ 94 H From Monitor] Pulse Rate [ Left Dorsalis Pedis] Pulse Rate [ Left Radial] Pulse Rate [ Right Dorsalis Pedis] Pulse Rate [ Right Radial] Respiratory 18 Rate Respiratory 18 Rate [Anterior Bilateral Throughout] Blood Pressure 121/69 O2 Sat by Pulse 89 Oximetry Constitutional: appears uncomfortable, other (obtunded) Eyes: non-icteric ENT: oropharynx moist Neck: supple, no lymphadenopathy, no JVD, other (no thyromegaly) Effort: mildly labored Ascultation: Bilateral: diminished breath sounds, rhonchi Percussion: Bilateral: not dull Cardiovascular: regular rate and rhythm, other (no rubs or murmurs) Gastrointestinal: hypoactive bowel sounds, soft, non-tender, non-distended, other (no palapble HSM) Integumentary: normal Extremities: no cyanosis, pink and warm, pulses normal, edema Neurologic: pupils equal and round, unable to assess Psychiatric: other (unable to assess) CBC and BMP: 12/08/17 04:41 12/08/17 04:00 ABG, PT/INR, D-dimer: ABG POC ABG pH 7.484 (7.35-7.45) H 12/08/17 04:05 POC ABG pCO2 56.6 (35-45) H 12/08/17 04:05 POC ABG pO2 53 (80-105) L 12/08/17 04:05 POC ABG HCO3 42.5 12/08/17 04:05 POC ABG Total CO2 44 12/08/17 04:05 POC ABG O2 Sat 88 12/08/17 04:05 PT/INR, D-dimer PT 15.3 Sec. (12.2-14.9) H 11/23/17 12:44 INR 1.15 (0.87-1.13) H 11/23/17 12:44 D-Dimer 1977.37 ng/mlDDU (0-234) H 11/24/17 14:44 Abnormal lab findings: Abnormal Labs 11/23/17 11/23/17 11/23/17 12:44 12:44 12:44 WBC 13.0 H RBC Hgb Hct 46.1 H MCV 112 H MCH 33 H MCHC 29 L RDW 18.5 H Plt Count Lymph % (Auto) [place] % (Auto) Eos % (Auto) Lymph # [place] # Eos # Baso # Seg Neutrophils % Seg Neuts % (Manual) 71.0 H Monocytes % (Manual) 8.0 H Nucleated RBC % 6.0 H Seg Neutrophils # Seg Neutrophils # Man 9.2 H Monocytes # (Manual) 1.0 H PT 15.3 H INR 1.15 H D-Dimer POC ABG pH POC ABG pCO2 POC ABG pO2 Sodium Potassium 5.4 H Chloride 85.2 L Carbon Dioxide BUN 19 H Creatinine 1.3 H Glucose 175 H POC Glucose Lactic Acid Calcium AST 310 H ALT 262 H C-Reactive Protein Total Protein 5.7 L Albumin 2.9 L Salicylates Miscellaneous Test 11/23/17 11/23/17 11/23/17 12:44 13:23 15:54 WBC RBC Hgb Hct MCV MCH MCHC RDW Plt Count Lymph % (Auto) [place] % (Auto) Eos % (Auto) Lymph # [place] # Eos # Baso # Seg Neutrophils % Seg Neuts % (Manual) Monocytes % (Manual) Nucleated RBC % Seg Neutrophils # Seg Neutrophils # Man Monocytes # (Manual) PT INR D-Dimer POC ABG pH 7.035 L POC ABG pCO2 99.1 H POC ABG pO2 343 H Sodium Potassium Chloride Carbon Dioxide BUN Creatinine Glucose POC Glucose Lactic Acid 16.10 H* Calcium AST ALT C-Reactive Protein Total Protein Albumin Salicylates < 0.3 L Miscellaneous Test 11/23/17 11/24/17 11/24/17 16:42 04:03 04:03 WBC 16.8 H RBC Hgb 15.7 H Hct 48.9 H MCV 101 H MCH MCHC RDW 16.5 H Plt Count Lymph % (Auto) 5.2 L [place] % (Auto) Eos % (Auto) Lymph # 0.9 L [place] # 0.9 H Eos # Baso # Seg Neutrophils % 89.1 H Seg Neuts % (Manual) Monocytes % (Manual) Nucleated RBC % Seg Neutrophils # 14.9 H Seg Neutrophils # Man Monocytes # (Manual) PT INR D-Dimer POC ABG pH POC ABG pCO2 POC ABG pO2 55 L Sodium Potassium Chloride 96.0 L Carbon Dioxide 33 H D BUN 28 H Creatinine 1.5 H Glucose 108 H POC Glucose Lactic Acid Calcium 7.7 L AST 1091 H ALT 986 H C-Reactive Protein Total Protein 5.0 L Albumin 2.8 L Salicylates Miscellaneous Test 11/24/17 11/24/17 11/24/17 05:55 13:29 13:29 WBC RBC Hgb Hct MCV MCH MCHC RDW Plt Count Lymph % (Auto) [place] % (Auto) Eos % (Auto) Lymph # [place] # Eos # Baso # Seg Neutrophils % Seg Neuts % (Manual) Monocytes % (Manual) Nucleated RBC % Seg Neutrophils # Seg Neutrophils # Man Monocytes # (Manual) PT INR D-Dimer POC ABG pH 7.469 H POC ABG pCO2 52.3 H POC ABG pO2 69 L Sodium Potassium Chloride Carbon Dioxide BUN Creatinine Glucose POC Glucose Lactic Acid 3.20 H* Calcium AST ALT C-Reactive Protein 9.20 H Total Protein Albumin Salicylates Miscellaneous Test 11/24/17 11/24/17 11/25/17 14:44 20:55 01:55 WBC RBC Hgb Hct MCV MCH MCHC RDW Plt Count Lymph % (Auto) [place] % (Auto) Eos % (Auto) Lymph # [place] # Eos # Baso # Seg Neutrophils % Seg Neuts % (Manual) Monocytes % (Manual) Nucleated RBC % Seg Neutrophils # Seg Neutrophils # Man Monocytes # (Manual) PT INR D-Dimer 1977.37 H POC ABG pH 7.471 H POC ABG pCO2 56.2 H POC ABG pO2 Sodium Potassium Chloride Carbon Dioxide BUN Creatinine Glucose POC Glucose Lactic Acid 3.00 H* Calcium AST ALT C-Reactive Protein Total Protein Albumin Salicylates Miscellaneous Test 11/25/17 11/25/17 11/25/17 03:02 03:02 03:02 WBC 16.0 H RBC Hgb Hct MCV 99 H MCH MCHC RDW 16.0 H Plt Count Lymph % (Auto) 11.6 L [place] % (Auto) Eos % (Auto) Lymph # [place] # 1.0 H Eos # Baso # Seg Neutrophils % 81.8 H Seg Neuts % (Manual) Monocytes % (Manual) Nucleated RBC % Seg Neutrophils # 13.1 H Seg Neutrophils # Man Monocytes # (Manual) PT INR D-Dimer POC ABG pH POC ABG pCO2 POC ABG pO2 Sodium 148 H Potassium Chloride Carbon Dioxide 35 H BUN 30 H Creatinine 1.9 H Glucose 106 H POC Glucose Lactic Acid 2.90 H* Calcium 7.0 L AST ALT C-Reactive Protein Total Protein Albumin Salicylates Miscellaneous Test 11/25/17 11/25/17 11/25/17 03:02 03:35 07:15 WBC RBC Hgb Hct MCV MCH MCHC RDW Plt Count Lymph % (Auto) [place] % (Auto) Eos % (Auto) Lymph # [place] # Eos # Baso # Seg Neutrophils % Seg Neuts % (Manual) Monocytes % (Manual) Nucleated RBC % Seg Neutrophils # Seg Neutrophils # Man Monocytes # (Manual) PT INR D-Dimer POC ABG pH 7.494 H POC ABG pCO2 48.1 H POC ABG pO2 Sodium Potassium Chloride Carbon Dioxide BUN Creatinine Glucose POC Glucose Lactic Acid 2.30 H* Calcium AST 300 H ALT 561 H C-Reactive Protein Total Protein 4.5 L Albumin 2.4 L Salicylates Miscellaneous Test 11/26/17 11/26/17 11/26/17 03:26 03:26 03:52 WBC 12.7 H RBC Hgb 14.9 H Hct 45.9 H MCV 98 H MCH MCHC RDW 16.3 H Plt Count 137 L Lymph % (Auto) 10.0 L [place] % (Auto) Eos % (Auto) Lymph # [place] # Eos # Baso # Seg Neutrophils % 82.7 H Seg Neuts % (Manual) Monocytes % (Manual) Nucleated RBC % Seg Neutrophils # 10.5 H Seg Neutrophils # Man Monocytes # (Manual) PT INR D-Dimer POC ABG pH 7.475 H POC ABG pCO2 POC ABG pO2 71 L Sodium 150 H Potassium 3.3 L Chloride Carbon Dioxide BUN 22 H Creatinine 1.7 H Glucose 107 H POC Glucose Lactic Acid Calcium 7.5 L AST ALT C-Reactive Protein Total Protein Albumin Salicylates Miscellaneous Test 11/26/17 11/26/17 11/26/17 11:49 17:53 23:56 WBC RBC Hgb Hct MCV MCH MCHC RDW Plt Count Lymph % (Auto) [place] % (Auto) Eos % (Auto) Lymph # [place] # Eos # Baso # Seg Neutrophils % Seg Neuts % (Manual) Monocytes % (Manual) Nucleated RBC % Seg Neutrophils # Seg Neutrophils # Man Monocytes # (Manual) PT INR D-Dimer POC ABG pH POC ABG pCO2 POC ABG pO2 Sodium Potassium Chloride Carbon Dioxide BUN Creatinine Glucose POC Glucose 109 H 168 H 145 H Lactic Acid Calcium AST ALT C-Reactive Protein Total Protein Albumin Salicylates Miscellaneous Test 11/27/17 11/27/17 11/27/17 04:22 04:22 04:53 WBC 11.7 H RBC Hgb 15.7 H Hct 49.8 H MCV 100 H MCH MCHC RDW 16.4 H Plt Count 105 L Lymph % (Auto) 7.6 L [place] % (Auto) 8.7 H Eos % (Auto) Lymph # 0.9 L [place] # 1.0 H Eos # Baso # Seg Neutrophils % 83.2 H Seg Neuts % (Manual) Monocytes % (Manual) Nucleated RBC % Seg Neutrophils # 9.7 H Seg Neutrophils # Man Monocytes # (Manual) PT INR D-Dimer POC ABG pH POC ABG pCO2 53.1 H POC ABG pO2 70 L Sodium 155 H Potassium Chloride 113.1 H Carbon Dioxide BUN Creatinine 1.5 H Glucose 128 H POC Glucose Lactic Acid Calcium 7.4 L AST ALT C-Reactive Protein Total Protein Albumin Salicylates Miscellaneous Test 11/27/17 11/27/17 11/27/17 05:34 11:27 16:18 WBC RBC Hgb Hct MCV MCH MCHC RDW Plt Count Lymph % (Auto) [place] % (Auto) Eos % (Auto) Lymph # [place] # Eos # Baso # Seg Neutrophils % Seg Neuts % (Manual) Monocytes % (Manual) Nucleated RBC % Seg Neutrophils # Seg Neutrophils # Man Monocytes # (Manual) PT INR D-Dimer POC ABG pH POC ABG pCO2 POC ABG pO2 Sodium Potassium Chloride Carbon Dioxide BUN Creatinine Glucose POC Glucose 120 H 129 H Lactic Acid Calcium AST ALT C-Reactive Protein 13.70 H Total Protein Albumin Salicylates Miscellaneous Test 11/27/17 11/27/17 11/28/17 17:19 23:56 03:17 WBC 14.5 H RBC Hgb 15.2 H Hct 48.3 H MCV 99 H MCH MCHC RDW 16.5 H Plt Count 108 L Lymph % (Auto) 9.7 L [place] % (Auto) Eos % (Auto) Lymph # [place] # 1.0 H Eos # Baso # Seg Neutrophils % 81.0 H Seg Neuts % (Manual) Monocytes % (Manual) Nucleated RBC % Seg Neutrophils # 11.8 H Seg Neutrophils # Man Monocytes # (Manual) PT INR D-Dimer POC ABG pH POC ABG pCO2 POC ABG pO2 Sodium Potassium Chloride Carbon Dioxide BUN Creatinine Glucose POC Glucose 138 H 125 H Lactic Acid Calcium AST ALT C-Reactive Protein Total Protein Albumin Salicylates Miscellaneous Test 11/28/17 11/28/17 11/28/17 03:17 05:34 06:46 WBC RBC Hgb Hct MCV MCH MCHC RDW Plt Count Lymph % (Auto) [place] % (Auto) Eos % (Auto) Lymph # [place] # Eos # Baso # Seg Neutrophils % Seg Neuts % (Manual) Monocytes % (Manual) Nucleated RBC % Seg Neutrophils # Seg Neutrophils # Man Monocytes # (Manual) PT INR D-Dimer POC ABG pH 7.324 L POC ABG pCO2 63.4 H POC ABG pO2 65 L Sodium 150 H Potassium 3.4 L Chloride 107.9 H Carbon Dioxide 31 H BUN 19 H Creatinine 1.3 H Glucose 126 H POC Glucose 132 H Lactic Acid Calcium 7.7 L AST ALT C-Reactive Protein Total Protein Albumin Salicylates Miscellaneous Test 11/28/17 11/28/17 11/28/17 09:23 12:17 17:20 WBC RBC Hgb Hct MCV MCH MCHC RDW Plt Count Lymph % (Auto) [place] % (Auto) Eos % (Auto) Lymph # [place] # Eos # Baso # Seg Neutrophils % Seg Neuts % (Manual) Monocytes % (Manual) Nucleated RBC % Seg Neutrophils # Seg Neutrophils # Man Monocytes # (Manual) PT INR D-Dimer POC ABG pH POC ABG pCO2 POC ABG pO2 Sodium Potassium Chloride Carbon Dioxide BUN Creatinine Glucose POC Glucose 142 H 136 H Lactic Acid Calcium AST ALT C-Reactive Protein Total Protein Albumin Salicylates Miscellaneous Test Flexitest 1 H 11/29/17 11/29/17 11/29/17 00:12 04:36 04:47 WBC 14.1 H RBC 5.32 H Hgb 16.4 H Hct 51.2 H MCV MCH MCHC RDW 15.8 H Plt Count 77 L Lymph % (Auto) 7.6 L [place] % (Auto) Eos % (Auto) Lymph # 1.1 L [place] # 0.9 H Eos # 0.5 H Baso # Seg Neutrophils % 81.5 H Seg Neuts % (Manual) Monocytes % (Manual) Nucleated RBC % Seg Neutrophils # 11.5 H Seg Neutrophils # Man Monocytes # (Manual) PT INR D-Dimer POC ABG pH POC ABG pCO2 POC ABG pO2 61 L Sodium Potassium Chloride Carbon Dioxide BUN Creatinine Glucose POC Glucose 119 H Lactic Acid Calcium AST ALT C-Reactive Protein Total Protein Albumin Salicylates Miscellaneous Test 11/29/17 11/29/17 11/29/17 04:47 05:29 11:48 WBC RBC Hgb Hct MCV MCH MCHC RDW Plt Count Lymph % (Auto) [place] % (Auto) Eos % (Auto) Lymph # [place] # Eos # Baso # Seg Neutrophils % Seg Neuts % (Manual) Monocytes % (Manual) Nucleated RBC % Seg Neutrophils # Seg Neutrophils # Man Monocytes # (Manual) PT INR D-Dimer POC ABG pH POC ABG pCO2 POC ABG pO2 Sodium Potassium Chloride Carbon Dioxide BUN 18 H Creatinine Glucose 119 H POC Glucose 128 H 128 H Lactic Acid Calcium 8.2 L AST ALT C-Reactive Protein Total Protein Albumin Salicylates Miscellaneous Test 11/29/17 11/29/17 11/30/17 17:32 17:39 03:48 WBC 13.5 H RBC Hgb 15.4 H Hct 47.2 H MCV MCH MCHC RDW 16.3 H Plt Count Lymph % (Auto) 10.5 L [place] % (Auto) 7.7 H Eos % (Auto) Lymph # [place] # 1.0 H Eos # 0.5 H Baso # Seg Neutrophils % 76.8 H Seg Neuts % (Manual) Monocytes % (Manual) Nucleated RBC % Seg Neutrophils # 10.4 H Seg Neutrophils # Man Monocytes # (Manual) PT INR D-Dimer POC ABG pH POC ABG pCO2 51.6 H POC ABG pO2 345 H Sodium Potassium Chloride Carbon Dioxide BUN Creatinine Glucose POC Glucose 124 H Lactic Acid Calcium AST ALT C-Reactive Protein Total Protein Albumin Salicylates Miscellaneous Test 11/30/17 11/30/17 11/30/17 03:48 03:52 23:37 WBC RBC Hgb Hct MCV MCH MCHC RDW Plt Count Lymph % (Auto) [place] % (Auto) Eos % (Auto) Lymph # [place] # Eos # Baso # Seg Neutrophils % Seg Neuts % (Manual) Monocytes % (Manual) Nucleated RBC % Seg Neutrophils # Seg Neutrophils # Man Monocytes # (Manual) PT INR D-Dimer POC ABG pH 7.503 H POC ABG pCO2 POC ABG pO2 65 L Sodium Potassium Chloride Carbon Dioxide BUN Creatinine Glucose 121 H POC Glucose 140 H Lactic Acid Calcium 7.6 L AST ALT C-Reactive Protein Total Protein Albumin Salicylates Miscellaneous Test 12/01/17 12/01/17 12/01/17 03:17 05:30 12:37 WBC RBC Hgb Hct MCV MCH MCHC RDW Plt Count Lymph % (Auto) [place] % (Auto) Eos % (Auto) Lymph # [place] # Eos # Baso # Seg Neutrophils % Seg Neuts % (Manual) Monocytes % (Manual) Nucleated RBC % Seg Neutrophils # Seg Neutrophils # Man Monocytes # (Manual) PT INR D-Dimer POC ABG pH POC ABG pCO2 52.7 H POC ABG pO2 64 L Sodium Potassium Chloride Carbon Dioxide BUN Creatinine Glucose POC Glucose 171 H 175 H Lactic Acid Calcium AST ALT C-Reactive Protein Total Protein Albumin Salicylates Miscellaneous Test 12/01/17 12/02/17 12/02/17 17:41 00:01 03:17 WBC RBC Hgb Hct MCV MCH MCHC RDW Plt Count Lymph % (Auto) [place] % (Auto) Eos % (Auto) Lymph # [place] # Eos # Baso # Seg Neutrophils % Seg Neuts % (Manual) Monocytes % (Manual) Nucleated RBC % Seg Neutrophils # Seg Neutrophils # Man Monocytes # (Manual) PT INR D-Dimer POC ABG pH POC ABG pCO2 51.5 H POC ABG pO2 67 L Sodium Potassium Chloride Carbon Dioxide BUN Creatinine Glucose POC Glucose 165 H 184 H Lactic Acid Calcium AST ALT C-Reactive Protein Total Protein Albumin Salicylates Miscellaneous Test 12/02/17 12/02/17 12/02/17 05:54 11:44 18:04 WBC RBC Hgb Hct MCV MCH MCHC RDW Plt Count Lymph % (Auto) [place] % (Auto) Eos % (Auto) Lymph # [place] # Eos # Baso # Seg Neutrophils % Seg Neuts % (Manual) Monocytes % (Manual) Nucleated RBC % Seg Neutrophils # Seg Neutrophils # Man Monocytes # (Manual) PT INR D-Dimer POC ABG pH POC ABG pCO2 POC ABG pO2 Sodium Potassium Chloride Carbon Dioxide BUN Creatinine Glucose POC Glucose 208 H 175 H 146 H Lactic Acid Calcium AST ALT C-Reactive Protein Total Protein Albumin Salicylates Miscellaneous Test 12/03/17 12/03/17 12/03/17 00:16 05:59 12:09 WBC RBC Hgb Hct MCV MCH MCHC RDW Plt Count Lymph % (Auto) [place] % (Auto) Eos % (Auto) Lymph # [place] # Eos # Baso # Seg Neutrophils % Seg Neuts % (Manual) Monocytes % (Manual) Nucleated RBC % Seg Neutrophils # Seg Neutrophils # Man Monocytes # (Manual) PT INR D-Dimer POC ABG pH POC ABG pCO2 53.1 H POC ABG pO2 60 L Sodium Potassium Chloride Carbon Dioxide BUN Creatinine Glucose POC Glucose 135 H 137 H Lactic Acid Calcium AST ALT C-Reactive Protein Total Protein Albumin Salicylates Miscellaneous Test 12/03/1718 12/03/17 17:19 20:02 23:30 WBC 13.3 H RBC Hgb 15.1 H Hct 47.0 H MCV MCH MCHC RDW 15.8 H Plt Count Lymph % (Auto) 11.6 L [place] % (Auto) Eos % (Auto) 4.5 H Lymph # [place] # Eos # 0.6 H Baso # Seg Neutrophils % 76.6 H Seg Neuts % (Manual) Monocytes % (Manual) Nucleated RBC % Seg Neutrophils # 10.2 H Seg Neutrophils # Man Monocytes # (Manual) PT INR D-Dimer POC ABG pH POC ABG pCO2 POC ABG pO2 Sodium Potassium Chloride Carbon Dioxide BUN Creatinine Glucose POC Glucose 134 H 118 H Lactic Acid Calcium AST ALT C-Reactive Protein Total Protein Albumin Salicylates Miscellaneous Test 12/04/17 12/04/17 12/04/17 06:07 11:54 17:20 WBC RBC Hgb Hct MCV MCH MCHC RDW Plt Count Lymph % (Auto) [place] % (Auto) Eos % (Auto) Lymph # [place] # Eos # Baso # Seg Neutrophils % Seg Neuts % (Manual) Monocytes % (Manual) Nucleated RBC % Seg Neutrophils # Seg Neutrophils # Man Monocytes # (Manual) PT INR D-Dimer POC ABG pH POC ABG pCO2 POC ABG pO2 Sodium Potassium Chloride Carbon Dioxide BUN Creatinine Glucose POC Glucose 163 H 154 H 143 H Lactic Acid Calcium AST ALT C-Reactive Protein Total Protein Albumin Salicylates Miscellaneous Test 12/04/17 12/05/17 12/05/17 23:51 06:14 11:36 WBC RBC Hgb Hct MCV MCH MCHC RDW Plt Count Lymph % (Auto) [place] % (Auto) Eos % (Auto) Lymph # [place] # Eos # Baso # Seg Neutrophils % Seg Neuts % (Manual) Monocytes % (Manual) Nucleated RBC % Seg Neutrophils # Seg Neutrophils # Man Monocytes # (Manual) PT INR D-Dimer POC ABG pH POC ABG pCO2 POC ABG pO2 Sodium Potassium Chloride Carbon Dioxide BUN Creatinine Glucose POC Glucose 139 H 158 H 173 H Lactic Acid Calcium AST ALT C-Reactive Protein Total Protein Albumin Salicylates Miscellaneous Test 12/05/17 12/06/17 12/06/17 17:45 00:12 06:09 WBC RBC Hgb Hct MCV MCH MCHC RDW Plt Count Lymph % (Auto) [place] % (Auto) Eos % (Auto) Lymph # [place] # Eos # Baso # Seg Neutrophils % Seg Neuts % (Manual) Monocytes % (Manual) Nucleated RBC % Seg Neutrophils # Seg Neutrophils # Man Monocytes # (Manual) PT INR D-Dimer POC ABG pH POC ABG pCO2 POC ABG pO2 Sodium Potassium Chloride Carbon Dioxide BUN Creatinine Glucose POC Glucose 148 H 148 H 205 H Lactic Acid Calcium AST ALT C-Reactive Protein Total Protein Albumin Salicylates Miscellaneous Test 12/06/17 12/06/17 12/07/17 11:58 23:36 05:34 WBC RBC Hgb Hct MCV MCH MCHC RDW Plt Count Lymph % (Auto) [place] % (Auto) Eos % (Auto) Lymph # [place] # Eos # Baso # Seg Neutrophils % Seg Neuts % (Manual) Monocytes % (Manual) Nucleated RBC % Seg Neutrophils # Seg Neutrophils # Man Monocytes # (Manual) PT INR D-Dimer POC ABG pH POC ABG pCO2 POC ABG pO2 Sodium Potassium Chloride Carbon Dioxide BUN Creatinine Glucose POC Glucose 203 H 161 H 193 H Lactic Acid Calcium AST ALT C-Reactive Protein Total Protein Albumin Salicylates Miscellaneous Test 12/07/17 12/07/17 12/07/17 11:43 12:14 16:47 WBC RBC Hgb Hct MCV MCH MCHC RDW Plt Count Lymph % (Auto) [place] % (Auto) Eos % (Auto) Lymph # [place] # Eos # Baso # Seg Neutrophils % Seg Neuts % (Manual) Monocytes % (Manual) Nucleated RBC % Seg Neutrophils # Seg Neutrophils # Man Monocytes # (Manual) PT INR D-Dimer POC ABG pH 7.461 H POC ABG pCO2 58.7 H POC ABG pO2 59 L Sodium Potassium Chloride Carbon Dioxide BUN Creatinine Glucose POC Glucose 176 H 162 H Lactic Acid Calcium AST ALT C-Reactive Protein Total Protein Albumin Salicylates Miscellaneous Test 12/07/17 12/08/17 12/08/17 23:49 04:00 04:05 WBC RBC Hgb Hct MCV MCH MCHC RDW Plt Count Lymph % (Auto) [place] % (Auto) Eos % (Auto) Lymph # [place] # Eos # Baso # Seg Neutrophils % Seg Neuts % (Manual) Monocytes % (Manual) Nucleated RBC % Seg Neutrophils # Seg Neutrophils # Man Monocytes # (Manual) PT INR D-Dimer POC ABG pH 7.484 H POC ABG pCO2 56.6 H POC ABG pO2 53 L Sodium 149 H Potassium 2.8 L* Chloride Carbon Dioxide 37 H BUN 31 H Creatinine Glucose 131 H POC Glucose 135 H Lactic Acid Calcium AST ALT C-Reactive Protein Total Protein Albumin Salicylates Miscellaneous Test 12/08/17 12/08/17 04:41 05:08 WBC 14.4 H RBC Hgb Hct MCV MCH MCHC RDW 15.8 H Plt Count 518 H Lymph % (Auto) 12.3 L [place] % (Auto) 8.0 H Eos % (Auto) Lymph # [place] # 1.2 H Eos # Baso # 0.2 H Seg Neutrophils % 75.8 H Seg Neuts % (Manual) Monocytes % (Manual) Nucleated RBC % Seg Neutrophils # 10.9 H Seg Neutrophils # Man Monocytes # (Manual) PT INR D-Dimer POC ABG pH POC ABG pCO2 POC ABG pO2 Sodium Potassium Chloride Carbon Dioxide BUN Creatinine Glucose POC Glucose 128 H Lactic Acid Calcium AST ALT C-Reactive Protein Total Protein Albumin Salicylates Miscellaneous Test Allied health notes reviewed: nursing
[2017-12-08] MEDS: PEPCID PO SCH ×2 (10:37→21:38)
--- NOTE | 2017-12-08 10:52 | Progress Note ---
Assessment and Plan Assessment and plan: S/p cardiopulmonary arrest. Etiology likely secondary to respiratory arrest. - Anoxic encephalopathy; EEG showed no cortical activity - Neurology following Anoxic brain injury. CT and MRI suggest anoxic brain injury. No pupillary reflex. COPD exacerbation. Continue bronchodilators. Sepsis: ID following and previously on IV antibiotics. Completed zosyn 10 days and tamiflu 5 days Etiology most likely central fever +/- influenza +/- pneumonia. Hypokalemia. Replete K Possible complex partial seizures with secondary generalization. Continue Keppra and Ativan as needed Acute hypercapneic resp failure. Continue mechanical ventilation per pulmonary TAMARA - Resolved Dr. Fonseca discussed with her younger brother, about the prognosis and waiting family members to make decisions, to withdraw care or to make AND. If not, will order brain flow study. History Interval history: This unfortunate 56 year old female who was found pulseless, in asystole on and resuscitated, remains with no neurological function at this time. CT confirms severe anoxic damage from 11/26/17. EEG reveals no cortical activity. She is off all sedation. Patient fits criteria for brain , cortical. Brain stem has function only demonstrated by spontaneous respiration off the ventilator. Hospitalist Physical - Constitutional Vitals: Temp Pulse Resp BP Pulse Ox 98.9 F 94 H 18 121/69 89 12/08/17 04:00 12/08/17 08:00 12/08/17 08:00 12/08/17 08:00 12/08/17 08:00 General appearance: Present: other (on mech vent, ) - EENT Eyes: Present: PERRL, EOM intact ENT: hearing intact, clear oral mucosa, dentition normal - Neck Neck: Present: supple, normal ROM - Respiratory Respiratory effort: normal Respiratory: bilateral: CTA - Cardiovascular Rhythm: regular Heart Sounds: Present: S1 & S2. Absent: gallop, rub - Extremities Extremities: no ischemia, No edema, Full ROM - Abdominal General gastrointestinal: soft, non-tender, non-distended, normal bowel sounds - Integumentary Integumentary: Present: clear, warm, dry - Neurologic Neurologic: CNII-XII intact, moves all extremities Results - Labs CBC & Chem 7: 12/08/17 04:41 12/08/17 04:00 Labs: Laboratory Last Values WBC 14.4 K/mm3 (4.5-11.0) H 12/08/17 04:41 RBC 4.34 M/mm3 (3.65-5.03) 12/08/17 04:41 Hgb 13.6 gm/dl (10.1-14.3) 12/08/17 04:41 Hct 41.6 % (30.3-42.9) 12/08/17 04:41 MCV 96 fl (79-97) 12/08/17 04:41 MCH 31 pg (28-32) 12/08/17 04:41 MCHC 33 % (30-34) 12/08/17 04:41 RDW 15.8 % (13.2-15.2) H 12/08/17 04:41 Plt Count 518 K/mm3 (140-440) H 12/08/17 04:41 Lymph % (Auto) 12.3 % (13.4-35.0) L 12/08/17 04:41 [place] % (Auto) 8.0 % (0.0-7.3) H 12/08/17 04:41 Eos % (Auto) 2.6 % (0.0-4.3) 12/08/17 04:41 Baso % (Auto) 1.3 % (0.0-1.8) 12/08/17 04:41 Lymph # 1.8 K/mm3 (1.2-5.4) 12/08/17 04:41 [place] # 1.2 K/mm3 (0.0-0.8) H 12/08/17 04:41 Eos # 0.4 K/mm3 (0.0-0.4) 12/08/17 04:41 Baso # 0.2 K/mm3 (0.0-0.1) H 12/08/17 04:41 Add Manual Diff Complete 11/23/17 12:44 Total Counted 100 11/23/17 12:44 Seg Neutrophils % 75.8 % (40.0-70.0) H 12/08/17 04:41 Seg Neuts % (Manual) 71.0 % (40.0-70.0) H 11/23/17 12:44 Band Neutrophils % 3.0 % 11/23/17 12:44 Lymphocytes % (Manual) 18.0 % (13.4-35.0) 11/23/17 12:44 Reactive Lymphs % (Man) 0 % 11/23/17 12:44 Monocytes % (Manual) 8.0 % (0.0-7.3) H 11/23/17 12:44 Eosinophils % (Manual) 0 % (0.0-4.3) 11/23/17 12:44 Basophils % (Manual) 0 % (0.0-1.8) 11/23/17 12:44 Metamyelocytes % 0 % 11/23/17 12:44 Myelocytes % 0 % 11/23/17 12:44 Promyelocytes % 0 % 11/23/17 12:44 Blast Cells % 0 % 11/23/17 12:44 Nucleated RBC % 6.0 % (0.0-0.9) H 11/23/17 12:44 Seg Neutrophils # 10.9 K/mm3 (1.8-7.7) H 12/08/17 04:41 Seg Neutrophils # Man 9.2 K/mm3 (1.8-7.7) H 11/23/17 12:44 Band Neutrophils # 0.4 K/mm3 11/23/17 12:44 Lymphocytes # (Manual) 2.3 K/mm3 (1.2-5.4) 11/23/17 12:44 Abs React Lymphs (Man) 0.0 K/mm3 11/23/17 12:44 Monocytes # (Manual) 1.0 K/mm3 (0.0-0.8) H 11/23/17 12:44 Eosinophils # (Manual) 0.0 K/mm3 (0.0-0.4) 11/23/17 12:44 Basophils # (Manual) 0.0 K/mm3 (0.0-0.1) 11/23/17 12:44 Metamyelocytes # 0.0 K/mm3 11/23/17 12:44 Myelocytes # 0.0 K/mm3 11/23/17 12:44 Promyelocytes # 0.0 K/mm3 11/23/17 12:44 Blast Cells # 0.0 K/mm3 11/23/17 12:44 WBC Morphology Not Reportable 11/23/17 12:44 Hypersegmented Neuts Not Reportable 11/23/17 12:44 Hyposegmented Neuts Not Reportable 11/23/17 12:44 Hypogranular Neuts Not Reportable 11/23/17 12:44 Smudge Cells Not Reportable 11/23/17 12:44 Toxic Granulation Not Reportable 11/23/17 12:44 Toxic Vacuolation Not Reportable 11/23/17 12:44 Dohle Bodies Not Reportable 11/23/17 12:44 Pelger-Huet Anomaly Not Reportable 11/23/17 12:44 Erika Rods Not Reportable 11/23/17 12:44 Platelet Estimate Consistent w auto 11/23/17 12:44 Clumped Platelets Not Reportable 11/23/17 12:44 Plt Clumps, EDTA Not Reportable 11/23/17 12:44 Large Platelets Not Reportable 11/23/17 12:44 Giant Platelets Not Reportable 11/23/17 12:44 Platelet Satelliting Not Reportable 11/23/17 12:44 Plt Morphology Comment Not Reportable 11/23/17 12:44 RBC Morphology Not Reportable 11/23/17 12:44 Dimorphic RBCs Not Reportable 11/23/17 12:44 Polychromasia Rare 11/23/17 12:44 Hypochromasia Not Reportable 11/23/17 12:44 Poikilocytosis Not Reportable 11/23/17 12:44 Anisocytosis 1+ 11/23/17 12:44 Microcytosis Not Reportable 11/23/17 12:44 Macrocytosis 1+ 11/23/17 12:44 Spherocytes Not Reportable 11/23/17 12:44 Pappenheimer Bodies Not Reportable 11/23/17 12:44 Sickle Cells Not Reportable 11/23/17 12:44 Target Cells Not Reportable 11/23/17 12:44 Tear Drop Cells Not Reportable 11/23/17 12:44 Ovalocytes Not Reportable 11/23/17 12:44 Helmet Cells Not Reportable 11/23/17 12:44 [place] Bodies Not Reportable 11/23/17 12:44 [place] Rings Not Reportable 11/23/17 12:44 [place] Cells Not Reportable 11/23/17 12:44 Bite Cells Not Reportable 11/23/17 12:44 Crenated Cell Not Reportable 11/23/17 12:44 Elliptocytes Not Reportable 11/23/17 12:44 Acanthocytes (Spur) Not Reportable 11/23/17 12:44 Rouleaux Not Reportable 11/23/17 12:44 Hemoglobin C Crystals Not Reportable 11/23/17 12:44 Schistocytes Not Reportable 11/23/17 12:44 Malaria parasites Not Reportable 11/23/17 12:44 Brett Bodies Not Reportable 11/23/17 12:44 Hem Pathologist Commnt No 11/23/17 12:44 PT 15.3 Sec. (12.2-14.9) H 11/23/17 12:44 INR 1.15 (0.87-1.13) H 11/23/17 12:44 APTT 33.9 Sec. (24.2-36.6) 11/23/17 12:44 D-Dimer 1977.37 ng/mlDDU (0-234) H 11/24/17 14:44 POC ABG pH 7.484 (7.35-7.45) H 12/08/17 04:05 POC ABG pCO2 56.6 (35-45) H 12/08/17 04:05 POC ABG pO2 53 (80-105) L 12/08/17 04:05 POC ABG HCO3 42.5 12/08/17 04:05 POC ABG Total CO2 44 12/08/17 04:05 POC ABG O2 Sat 88 12/08/17 04:05 POC ABG Base Excess 19 12/08/17 04:05 FiO2 50 % 12/08/17 04:05 Sodium 149 mmol/L (137-145) H 12/08/17 04:00 Potassium 2.8 mmol/L (3.6-5.0) L* 12/08/17 04:00 Chloride 99.7 mmol/L (98-107) 12/08/17 04:00 Carbon Dioxide 37 mmol/L (22-30) H 12/08/17 04:00 Anion Gap 15 mmol/L 12/08/17 04:00 BUN 31 mg/dL (7-17) H 12/08/17 04:00 Creatinine 1.2 mg/dL (0.7-1.2) 12/08/17 04:00 Estimated GFR 46 ml/min 12/08/17 04:00 BUN/Creatinine Ratio 26 % 12/08/17 04:00 Glucose 131 mg/dL (65-100) H 12/08/17 04:00 POC Glucose 128 (70-105) H 12/08/17 05:08 Lactic Acid 2.00 mmol/L (0.7-2.0) 11/25/17 10:25 Calcium 8.8 mg/dL (8.4-10.2) 12/08/17 04:00 Magnesium 1.90 mg/dL (1.7-2.3) 11/28/17 03:17 Total Bilirubin 0.60 mg/dL (0.1-1.2) 11/25/17 03:02 Direct Bilirubin 0.2 mg/dL (0-0.2) 11/25/17 03:02 Indirect Bilirubin 0.4 mg/dL 11/25/17 03:02 AST 300 units/L (5-40) H 11/25/17 03:02 ALT 561 units/L (7-56) H 11/25/17 03:02 Alkaline Phosphatase 54 units/L (35-129) 11/25/17 03:02 Troponin T < 0.010 ng/mL (0.00-0.029) 11/23/17 12:44 C-Reactive Protein 13.70 mg/dL (0.00-1.30) H 11/27/17 16:18 Total Protein 4.5 g/dL (6.3-8.2) L 11/25/17 03:02 Albumin 2.4 g/dL (3.9-5) L 11/25/17 03:02 Albumin/Globulin Ratio 1.1 % 11/25/17 03:02 Urine Color Yellow (Yellow) 11/23/17 13:39 Urine Turbidity Clear (Clear) 11/23/17 13:39 Urine pH 5.0 (5.0-7.0) 11/23/17 13:39 Ur Specific [place] 1.020 (1.003-1.030) 11/23/17 13:39 Urine Protein 30 mg/dl mg/dL (Negative) 11/23/17 13:39 Urine Glucose (UA) Neg mg/dL (Negative) 11/23/17 13:39 Urine Ketones Neg mg/dL (Negative) 11/23/17 13:39 Urine Blood Neg (Negative) 11/23/17 13:39 Urine Nitrite Neg (Negative) 11/23/17 13:39 Urine Bilirubin Neg (Negative) 11/23/17 13:39 Urine Urobilinogen 2.0 mg/dL (<2.0) 11/23/17 13:39 Ur Leukocyte Esterase Neg (Negative) 11/23/17 13:39 Urine WBC (Auto) 5.0 /HPF (0.0-6.0) 11/23/17 13:39 Urine RBC (Auto) 1.0 /HPF (0.0-6.0) 11/23/17 13:39 U Epithel Cells (Auto) 1.0 /HPF (0-13.0) 11/23/17 13:39 Urine Bacteria (Auto) 1+ /HPF (Negative) 11/23/17 13:39 Hyaline Casts 11 /LPF 11/23/17 13:39 Urine Mucus 2+ /HPF 11/23/17 13:39 Salicylates < 0.3 mg/dL (2.8-20.0) L 11/23/17 15:54 Urine Opiates Screen Presumptive positive 11/23/17 13:39 Urine Methadone Screen Presumptive negative 11/23/17 13:39 Acetaminophen < 15.0 ug/mL (10.0-30.0) 11/23/17 15:54 Ur Barbiturates Screen Presumptive negative 11/23/17 13:39 Levetiracetam 30.0 mcg/mL 11/25/17 17:30 Ur Phencyclidine Scrn Presumptive negative 11/23/17 13:39 Ur Amphetamines Screen Presumptive negative 11/23/17 13:39 U Benzodiazepines Scrn Presumptive positive 11/23/17 13:39 Urine Cocaine Screen Presumptive negative 11/23/17 13:39 U Marijuana (THC) Screen Presumptive negative 11/23/17 13:39 Drugs of Abuse Note Disclamer 11/23/17 13:39 Miscellaneous Test Flexitest 1 H 11/28/17 09:23
[2017-12-08] MEDS ORDERED: K-DUR PO ONE ×2 (12:00→15:00)
[2017-12-08] MEDS ORDERED: POTASSIUM CHLORIDE FEEDTUBE SCH (13:00)
--- NOTE | 2017-12-08 16:37 | Progress Note ---
Assessment and Plan This unfortunate 56 year old female who was found pulseless, in asystole on and resuscitated, remains with no neurological function at this time. CT confirms severe anoxic damage from 11/26/17. EEG reveals no cortical activity. She is off all sedation. Patient fits criteria for brain , cortical. Brain stem has function only demonstrated by spontaneous respiration off the ventilator. Plan - Family wishes to continue all efforts for survival. She is still full code. They are interested in a second opinion at [place]. Subjective Principal diagnosis: Acute Hypoxemic Resp Failure; S/P Cardiac Arrest; Acute Encephalopathy Interval history: This 56 year old female was found down on 11/23/17, lives in a dwelling with another family. She was found by the homeowner who called EMS. When they arrived she was cold and without pulse. A cardiac rhythm was obtained with epinephrine injection and ACLS protocol followed. The pt. has a history of type II diabetes, COPD. She smokes 1 1/2 PPD for 30 years. She developed myoclonus after admission to [facility] which seems to be under control with Keppra. CT from 11/26/17 reveals cerebral edema with some sparing of right frontal areas. There is ischemic change in bilateral basal ganglia, cerebellum. Consistent with anoxic encephalopathy. Continues unresponsive on the ventilator. No spontaneous or induced movement. MRI from 12/01/17 reveals anoxic damage to both thalami, globus pallidus, and multiple other areas of brainstem and cortex. Objective - Exam Narrative Exam: HEENT - no myoclonus or seizure activity. eyes closed. pupils 3 to 4 mm and not reactive. Heart - rate of 84. Regular. Nl S-1 and S-2. Lungs - end inspiratory and expiratory wheeze Abdomen - soft. min. bowel sounds. Extremities - no edema. no lesions. Neuro - unresponsive on ventilator. 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 face symmetric. No response to suctioning. Motor - no spontaneous movement. no movement to deep pain stimuli bilaterally. Sensory - as above. Reflexes - left brachioradialis +1 and remaining absent. A repeat EEG performed 12/01/17 continues to reveal no brain activity, in keeping with what we are seeing on exam. Apnea test positive for spontaneous respiration on 11/29. - Vital Sign Vital Signs - 12hr 12/08/17 12/08/17 12/08/17 05:00 06:00 06:33 Temperature Pulse Rate 88 87 Pulse Rate [ Anterior Bilateral Throughout] Pulse Rate [ 89 From Monitor] Pulse Rate [ 89 Left Dorsalis Pedis] Pulse Rate [ 89 Left Radial] Pulse Rate [ 89 Right Dorsalis Pedis] Pulse Rate [ 89 Right Radial] Respiratory 18 18 Rate Respiratory Rate [Anterior Bilateral Throughout] Blood Pressure 131/66 128/65 O2 Sat by Pulse 90 89 89 Oximetry 12/08/17 12/08/17 12/08/17 07:00 07:30 07:34 Temperature Pulse Rate 90 89 Pulse Rate [ 89 Anterior Bilateral Throughout] Pulse Rate [ From Monitor] Pulse Rate [ Left Dorsalis Pedis] Pulse Rate [ Left Radial] Pulse Rate [ Right Dorsalis Pedis] Pulse Rate [ Right Radial] Respiratory 18 Rate Respiratory 18 Rate [Anterior Bilateral Throughout] Blood Pressure 128/71 128/71 O2 Sat by Pulse 91 95 Oximetry 12/08/17 12/08/17 12/08/17 07:49 08:00 09:00 Temperature 98.9 F Pulse Rate 90 89 Pulse Rate [ 90 Anterior Bilateral Throughout] Pulse Rate [ 94 H From Monitor] Pulse Rate [ Left Dorsalis Pedis] Pulse Rate [ Left Radial] Pulse Rate [ Right Dorsalis Pedis] Pulse Rate [ Right Radial] Respiratory 18 18 Rate Respiratory 18 Rate [Anterior Bilateral Throughout] Blood Pressure 121/69 120/71 O2 Sat by Pulse 89 88 Oximetry 12/08/17 12/08/17 12/08/17 10:00 11:00 11:07 Temperature Pulse Rate 86 89 91 H Pulse Rate [ Anterior Bilateral Throughout] Pulse Rate [ From Monitor] Pulse Rate [ Left Dorsalis Pedis] Pulse Rate [ Left Radial] Pulse Rate [ Right Dorsalis Pedis] Pulse Rate [ Right Radial] Respiratory 18 18 Rate Respiratory Rate [Anterior Bilateral Throughout] Blood Pressure 120/71 137/73 137/73 O2 Sat by Pulse 99 91 96 Oximetry 12/08/17 12/08/17 12/08/17 11:48 12:00 14:31 Temperature 98.7 F Pulse Rate 88 92 H 90 Pulse Rate [ Anterior Bilateral Throughout] Pulse Rate [ 81 From Monitor] Pulse Rate [ Left Dorsalis Pedis] Pulse Rate [ Left Radial] Pulse Rate [ Right Dorsalis Pedis] Pulse Rate [ Right Radial] Respiratory 18 Rate Respiratory Rate [Anterior Bilateral Throughout] Blood Pressure 141/74 118/66 O2 Sat by Pulse 92 92 Oximetry - Laboratory Findings CBC and BMP: 12/08/17 04:41 12/08/17 04:00 Abnormal Lab Findings: Abnormal Labs 11/23/17 11/23/17 11/23/17 12:44 12:44 12:44 WBC 13.0 H RBC Hgb Hct 46.1 H MCV 112 H MCH 33 H MCHC 29 L RDW 18.5 H Plt Count Lymph % (Auto) [place] % (Auto) Eos % (Auto) Lymph # [place] # Eos # Baso # Seg Neutrophils % Seg Neuts % (Manual) 71.0 H Monocytes % (Manual) 8.0 H Nucleated RBC % 6.0 H Seg Neutrophils # Seg Neutrophils # Man 9.2 H Monocytes # (Manual) 1.0 H PT 15.3 H INR 1.15 H D-Dimer POC ABG pH POC ABG pCO2 POC ABG pO2 Sodium Potassium 5.4 H Chloride 85.2 L Carbon Dioxide BUN 19 H Creatinine 1.3 H Glucose 175 H POC Glucose Lactic Acid Calcium AST 310 H ALT 262 H C-Reactive Protein Total Protein 5.7 L Albumin 2.9 L Salicylates Miscellaneous Test 11/23/17 11/23/17 11/23/17 12:44 13:23 15:54 WBC RBC Hgb Hct MCV MCH MCHC RDW Plt Count Lymph % (Auto) [place] % (Auto) Eos % (Auto) Lymph # [place] # Eos # Baso # Seg Neutrophils % Seg Neuts % (Manual) Monocytes % (Manual) Nucleated RBC % Seg Neutrophils # Seg Neutrophils # Man Monocytes # (Manual) PT INR D-Dimer POC ABG pH 7.035 L POC ABG pCO2 99.1 H POC ABG pO2 343 H Sodium Potassium Chloride Carbon Dioxide BUN Creatinine Glucose POC Glucose Lactic Acid 16.10 H* Calcium AST ALT C-Reactive Protein Total Protein Albumin Salicylates < 0.3 L Miscellaneous Test 11/23/17 11/24/17 11/24/17 16:42 04:03 04:03 WBC 16.8 H RBC Hgb 15.7 H Hct 48.9 H MCV 101 H MCH MCHC RDW 16.5 H Plt Count Lymph % (Auto) 5.2 L [place] % (Auto) Eos % (Auto) Lymph # 0.9 L [place] # 0.9 H Eos # Baso # Seg Neutrophils % 89.1 H Seg Neuts % (Manual) Monocytes % (Manual) Nucleated RBC % Seg Neutrophils # 14.9 H Seg Neutrophils # Man Monocytes # (Manual) PT INR D-Dimer POC ABG pH POC ABG pCO2 POC ABG pO2 55 L Sodium Potassium Chloride 96.0 L Carbon Dioxide 33 H D BUN 28 H Creatinine 1.5 H Glucose 108 H POC Glucose Lactic Acid Calcium 7.7 L AST 1091 H ALT 986 H C-Reactive Protein Total Protein 5.0 L Albumin 2.8 L Salicylates Miscellaneous Test 11/24/17 11/24/17 11/24/17 05:55 13:29 13:29 WBC RBC Hgb Hct MCV MCH MCHC RDW Plt Count Lymph % (Auto) [place] % (Auto) Eos % (Auto) Lymph # [place] # Eos # Baso # Seg Neutrophils % Seg Neuts % (Manual) Monocytes % (Manual) Nucleated RBC % Seg Neutrophils # Seg Neutrophils # Man Monocytes # (Manual) PT INR D-Dimer POC ABG pH 7.469 H POC ABG pCO2 52.3 H POC ABG pO2 69 L Sodium Potassium Chloride Carbon Dioxide BUN Creatinine Glucose POC Glucose Lactic Acid 3.20 H* Calcium AST ALT C-Reactive Protein 9.20 H Total Protein Albumin Salicylates Miscellaneous Test 11/24/17 11/24/17 11/25/17 14:44 20:55 01:55 WBC RBC Hgb Hct MCV MCH MCHC RDW Plt Count Lymph % (Auto) [place] % (Auto) Eos % (Auto) Lymph # [place] # Eos # Baso # Seg Neutrophils % Seg Neuts % (Manual) Monocytes % (Manual) Nucleated RBC % Seg Neutrophils # Seg Neutrophils # Man Monocytes # (Manual) PT INR D-Dimer 1977.37 H POC ABG pH 7.471 H POC ABG pCO2 56.2 H POC ABG pO2 Sodium Potassium Chloride Carbon Dioxide BUN Creatinine Glucose POC Glucose Lactic Acid 3.00 H* Calcium AST ALT C-Reactive Protein Total Protein Albumin Salicylates Miscellaneous Test 11/25/17 11/25/17 11/25/17 03:02 03:02 03:02 WBC 16.0 H RBC Hgb Hct MCV 99 H MCH MCHC RDW 16.0 H Plt Count Lymph % (Auto) 11.6 L [place] % (Auto) Eos % (Auto) Lymph # [place] # 1.0 H Eos # Baso # Seg Neutrophils % 81.8 H Seg Neuts % (Manual) Monocytes % (Manual) Nucleated RBC % Seg Neutrophils # 13.1 H Seg Neutrophils # Man Monocytes # (Manual) PT INR D-Dimer POC ABG pH POC ABG pCO2 POC ABG pO2 Sodium 148 H Potassium Chloride Carbon Dioxide 35 H BUN 30 H Creatinine 1.9 H Glucose 106 H POC Glucose Lactic Acid 2.90 H* Calcium 7.0 L AST ALT C-Reactive Protein Total Protein Albumin Salicylates Miscellaneous Test 11/25/17 11/25/17 11/25/17 03:02 03:35 07:15 WBC RBC Hgb Hct MCV MCH MCHC RDW Plt Count Lymph % (Auto) [place] % (Auto) Eos % (Auto) Lymph # [place] # Eos # Baso # Seg Neutrophils % Seg Neuts % (Manual) Monocytes % (Manual) Nucleated RBC % Seg Neutrophils # Seg Neutrophils # Man Monocytes # (Manual) PT INR D-Dimer POC ABG pH 7.494 H POC ABG pCO2 48.1 H POC ABG pO2 Sodium Potassium Chloride Carbon Dioxide BUN Creatinine Glucose POC Glucose Lactic Acid 2.30 H* Calcium AST 300 H ALT 561 H C-Reactive Protein Total Protein 4.5 L Albumin 2.4 L Salicylates Miscellaneous Test 11/26/17 11/26/17 11/26/17 03:26 03:26 03:52 WBC 12.7 H RBC Hgb 14.9 H Hct 45.9 H MCV 98 H MCH MCHC RDW 16.3 H Plt Count 137 L Lymph % (Auto) 10.0 L [place] % (Auto) Eos % (Auto) Lymph # [place] # Eos # Baso # Seg Neutrophils % 82.7 H Seg Neuts % (Manual) Monocytes % (Manual) Nucleated RBC % Seg Neutrophils # 10.5 H Seg Neutrophils # Man Monocytes # (Manual) PT INR D-Dimer POC ABG pH 7.475 H POC ABG pCO2 POC ABG pO2 71 L Sodium 150 H Potassium 3.3 L Chloride Carbon Dioxide BUN 22 H Creatinine 1.7 H Glucose 107 H POC Glucose Lactic Acid Calcium 7.5 L AST ALT C-Reactive Protein Total Protein Albumin Salicylates Miscellaneous Test 11/26/17 11/26/17 11/26/17 11:49 17:53 23:56 WBC RBC Hgb Hct MCV MCH MCHC RDW Plt Count Lymph % (Auto) [place] % (Auto) Eos % (Auto) Lymph # [place] # Eos # Baso # Seg Neutrophils % Seg Neuts % (Manual) Monocytes % (Manual) Nucleated RBC % Seg Neutrophils # Seg Neutrophils # Man Monocytes # (Manual) PT INR D-Dimer POC ABG pH POC ABG pCO2 POC ABG pO2 Sodium Potassium Chloride Carbon Dioxide BUN Creatinine Glucose POC Glucose 109 H 168 H 145 H Lactic Acid Calcium AST ALT C-Reactive Protein Total Protein Albumin Salicylates Miscellaneous Test 11/27/17 11/27/17 11/27/17 04:22 04:22 04:53 WBC 11.7 H RBC Hgb 15.7 H Hct 49.8 H MCV 100 H MCH MCHC RDW 16.4 H Plt Count 105 L Lymph % (Auto) 7.6 L [place] % (Auto) 8.7 H Eos % (Auto) Lymph # 0.9 L [place] # 1.0 H Eos # Baso # Seg Neutrophils % 83.2 H Seg Neuts % (Manual) Monocytes % (Manual) Nucleated RBC % Seg Neutrophils # 9.7 H Seg Neutrophils # Man Monocytes # (Manual) PT INR D-Dimer POC ABG pH POC ABG pCO2 53.1 H POC ABG pO2 70 L Sodium 155 H Potassium Chloride 113.1 H Carbon Dioxide BUN Creatinine 1.5 H Glucose 128 H POC Glucose Lactic Acid Calcium 7.4 L AST ALT C-Reactive Protein Total Protein Albumin Salicylates Miscellaneous Test 11/27/17 11/27/17 11/27/17 05:34 11:27 16:18 WBC RBC Hgb Hct MCV MCH MCHC RDW Plt Count Lymph % (Auto) [place] % (Auto) Eos % (Auto) Lymph # [place] # Eos # Baso # Seg Neutrophils % Seg Neuts % (Manual) Monocytes % (Manual) Nucleated RBC % Seg Neutrophils # Seg Neutrophils # Man Monocytes # (Manual) PT INR D-Dimer POC ABG pH POC ABG pCO2 POC ABG pO2 Sodium Potassium Chloride Carbon Dioxide BUN Creatinine Glucose POC Glucose 120 H 129 H Lactic Acid Calcium AST ALT C-Reactive Protein 13.70 H Total Protein Albumin Salicylates Miscellaneous Test 11/27/17 11/27/17 11/28/17 17:19 23:56 03:17 WBC 14.5 H RBC Hgb 15.2 H Hct 48.3 H MCV 99 H MCH MCHC RDW 16.5 H Plt Count 108 L Lymph % (Auto) 9.7 L [place] % (Auto) Eos % (Auto) Lymph # [place] # 1.0 H Eos # Baso # Seg Neutrophils % 81.0 H Seg Neuts % (Manual) Monocytes % (Manual) Nucleated RBC % Seg Neutrophils # 11.8 H Seg Neutrophils # Man Monocytes # (Manual) PT INR D-Dimer POC ABG pH POC ABG pCO2 POC ABG pO2 Sodium Potassium Chloride Carbon Dioxide BUN Creatinine Glucose POC Glucose 138 H 125 H Lactic Acid Calcium AST ALT C-Reactive Protein Total Protein Albumin Salicylates Miscellaneous Test 11/28/17 11/28/17 11/28/17 03:17 05:34 06:46 WBC RBC Hgb Hct MCV MCH MCHC RDW Plt Count Lymph % (Auto) [place] % (Auto) Eos % (Auto) Lymph # [place] # Eos # Baso # Seg Neutrophils % Seg Neuts % (Manual) Monocytes % (Manual) Nucleated RBC % Seg Neutrophils # Seg Neutrophils # Man Monocytes # (Manual) PT INR D-Dimer POC ABG pH 7.324 L POC ABG pCO2 63.4 H POC ABG pO2 65 L Sodium 150 H Potassium 3.4 L Chloride 107.9 H Carbon Dioxide 31 H BUN 19 H Creatinine 1.3 H Glucose 126 H POC Glucose 132 H Lactic Acid Calcium 7.7 L AST ALT C-Reactive Protein Total Protein Albumin Salicylates Miscellaneous Test 11/28/17 11/28/17 11/28/17 09:23 12:17 17:20 WBC RBC Hgb Hct MCV MCH MCHC RDW Plt Count Lymph % (Auto) [place] % (Auto) Eos % (Auto) Lymph # [place] # Eos # Baso # Seg Neutrophils % Seg Neuts % (Manual) Monocytes % (Manual) Nucleated RBC % Seg Neutrophils # Seg Neutrophils # Man Monocytes # (Manual) PT INR D-Dimer POC ABG pH POC ABG pCO2 POC ABG pO2 Sodium Potassium Chloride Carbon Dioxide BUN Creatinine Glucose POC Glucose 142 H 136 H Lactic Acid Calcium AST ALT C-Reactive Protein Total Protein Albumin Salicylates Miscellaneous Test Flexitest 1 H 11/29/17 11/29/17 11/29/17 00:12 04:36 04:47 WBC 14.1 H RBC 5.32 H Hgb 16.4 H Hct 51.2 H MCV MCH MCHC RDW 15.8 H Plt Count 77 L Lymph % (Auto) 7.6 L [place] % (Auto) Eos % (Auto) Lymph # 1.1 L [place] # 0.9 H Eos # 0.5 H Baso # Seg Neutrophils % 81.5 H Seg Neuts % (Manual) Monocytes % (Manual) Nucleated RBC % Seg Neutrophils # 11.5 H Seg Neutrophils # Man Monocytes # (Manual) PT INR D-Dimer POC ABG pH POC ABG pCO2 POC ABG pO2 61 L Sodium Potassium Chloride Carbon Dioxide BUN Creatinine Glucose POC Glucose 119 H Lactic Acid Calcium AST ALT C-Reactive Protein Total Protein Albumin Salicylates Miscellaneous Test 11/29/17 11/29/17 11/29/17 04:47 05:29 11:48 WBC RBC Hgb Hct MCV MCH MCHC RDW Plt Count Lymph % (Auto) [place] % (Auto) Eos % (Auto) Lymph # [place] # Eos # Baso # Seg Neutrophils % Seg Neuts % (Manual) Monocytes % (Manual) Nucleated RBC % Seg Neutrophils # Seg Neutrophils # Man Monocytes # (Manual) PT INR D-Dimer POC ABG pH POC ABG pCO2 POC ABG pO2 Sodium Potassium Chloride Carbon Dioxide BUN 18 H Creatinine Glucose 119 H POC Glucose 128 H 128 H Lactic Acid Calcium 8.2 L AST ALT C-Reactive Protein Total Protein Albumin Salicylates Miscellaneous Test 11/29/17 11/29/17 11/30/17 17:32 17:39 03:48 WBC 13.5 H RBC Hgb 15.4 H Hct 47.2 H MCV MCH MCHC RDW 16.3 H Plt Count Lymph % (Auto) 10.5 L [place] % (Auto) 7.7 H Eos % (Auto) Lymph # [place] # 1.0 H Eos # 0.5 H Baso # Seg Neutrophils % 76.8 H Seg Neuts % (Manual) Monocytes % (Manual) Nucleated RBC % Seg Neutrophils # 10.4 H Seg Neutrophils # Man Monocytes # (Manual) PT INR D-Dimer POC ABG pH POC ABG pCO2 51.6 H POC ABG pO2 345 H Sodium Potassium Chloride Carbon Dioxide BUN Creatinine Glucose POC Glucose 124 H Lactic Acid Calcium AST ALT C-Reactive Protein Total Protein Albumin Salicylates Miscellaneous Test 11/30/17 11/30/17 11/30/17 03:48 03:52 23:37 WBC RBC Hgb Hct MCV MCH MCHC RDW Plt Count Lymph % (Auto) [place] % (Auto) Eos % (Auto) Lymph # [place] # Eos # Baso # Seg Neutrophils % Seg Neuts % (Manual) Monocytes % (Manual) Nucleated RBC % Seg Neutrophils # Seg Neutrophils # Man Monocytes # (Manual) PT INR D-Dimer POC ABG pH 7.503 H POC ABG pCO2 POC ABG pO2 65 L Sodium Potassium Chloride Carbon Dioxide BUN Creatinine Glucose 121 H POC Glucose 140 H Lactic Acid Calcium 7.6 L AST ALT C-Reactive Protein Total Protein Albumin Salicylates Miscellaneous Test 12/01/17 12/01/17 12/01/17 03:17 05:30 12:37 WBC RBC Hgb Hct MCV MCH MCHC RDW Plt Count Lymph % (Auto) [place] % (Auto) Eos % (Auto) Lymph # [place] # Eos # Baso # Seg Neutrophils % Seg Neuts % (Manual) Monocytes % (Manual) Nucleated RBC % Seg Neutrophils # Seg Neutrophils # Man Monocytes # (Manual) PT INR D-Dimer POC ABG pH POC ABG pCO2 52.7 H POC ABG pO2 64 L Sodium Potassium Chloride Carbon Dioxide BUN Creatinine Glucose POC Glucose 171 H 175 H Lactic Acid Calcium AST ALT C-Reactive Protein Total Protein Albumin Salicylates Miscellaneous Test 12/01/17 12/02/17 12/02/17 17:41 00:01 03:17 WBC RBC Hgb Hct MCV MCH MCHC RDW Plt Count Lymph % (Auto) [place] % (Auto) Eos % (Auto) Lymph # [place] # Eos # Baso # Seg Neutrophils % Seg Neuts % (Manual) Monocytes % (Manual) Nucleated RBC % Seg Neutrophils # Seg Neutrophils # Man Monocytes # (Manual) PT INR D-Dimer POC ABG pH POC ABG pCO2 51.5 H POC ABG pO2 67 L Sodium Potassium Chloride Carbon Dioxide BUN Creatinine Glucose POC Glucose 165 H 184 H Lactic Acid Calcium AST ALT C-Reactive Protein Total Protein Albumin Salicylates Miscellaneous Test 12/02/17 12/02/17 12/02/17 05:54 11:44 18:04 WBC RBC Hgb Hct MCV MCH MCHC RDW Plt Count Lymph % (Auto) [place] % (Auto) Eos % (Auto) Lymph # [place] # Eos # Baso # Seg Neutrophils % Seg Neuts % (Manual) Monocytes % (Manual) Nucleated RBC % Seg Neutrophils # Seg Neutrophils # Man Monocytes # (Manual) PT INR D-Dimer POC ABG pH POC ABG pCO2 POC ABG pO2 Sodium Potassium Chloride Carbon Dioxide BUN Creatinine Glucose POC Glucose 208 H 175 H 146 H Lactic Acid Calcium AST ALT C-Reactive Protein Total Protein Albumin Salicylates Miscellaneous Test 12/03/17 12/03/17 12/03/17 00:16 05:59 12:09 WBC RBC Hgb Hct MCV MCH MCHC RDW Plt Count Lymph % (Auto) [place] % (Auto) Eos % (Auto) Lymph # [place] # Eos # Baso # Seg Neutrophils % Seg Neuts % (Manual) Monocytes % (Manual) Nucleated RBC % Seg Neutrophils # Seg Neutrophils # Man Monocytes # (Manual) PT INR D-Dimer POC ABG pH POC ABG pCO2 53.1 H POC ABG pO2 60 L Sodium Potassium Chloride Carbon Dioxide BUN Creatinine Glucose POC Glucose 135 H 137 H Lactic Acid Calcium AST ALT C-Reactive Protein Total Protein Albumin Salicylates Miscellaneous Test 12/03/17 12/03/17 12/03/17 17:19 20:02 23:30 WBC 13.3 H RBC Hgb 15.1 H Hct 47.0 H MCV MCH MCHC RDW 15.8 H Plt Count Lymph % (Auto) 11.6 L [place] % (Auto) Eos % (Auto) 4.5 H Lymph # [place] # Eos # 0.6 H Baso # Seg Neutrophils % 76.6 H Seg Neuts % (Manual) Monocytes % (Manual) Nucleated RBC % Seg Neutrophils # 10.2 H Seg Neutrophils # Man Monocytes # (Manual) PT INR D-Dimer POC ABG pH POC ABG pCO2 POC ABG pO2 Sodium Potassium Chloride Carbon Dioxide BUN Creatinine Glucose POC Glucose 134 H 118 H Lactic Acid Calcium AST ALT C-Reactive Protein Total Protein Albumin Salicylates Miscellaneous Test 12/04/17 12/04/17 12/04/17 06:07 11:54 17:20 WBC RBC Hgb Hct MCV MCH MCHC RDW Plt Count Lymph % (Auto) [place] % (Auto) Eos % (Auto) Lymph # [place] # Eos # Baso # Seg Neutrophils % Seg Neuts % (Manual) Monocytes % (Manual) Nucleated RBC % Seg Neutrophils # Seg Neutrophils # Man Monocytes # (Manual) PT INR D-Dimer POC ABG pH POC ABG pCO2 POC ABG pO2 Sodium Potassium Chloride Carbon Dioxide BUN Creatinine Glucose POC Glucose 163 H 154 H 143 H Lactic Acid Calcium AST ALT C-Reactive Protein Total Protein Albumin Salicylates Miscellaneous Test 12/04/17 12/05/17 12/05/17 23:51 06:14 11:36 WBC RBC Hgb Hct MCV MCH MCHC RDW Plt Count Lymph % (Auto) [place] % (Auto) Eos % (Auto) Lymph # [place] # Eos # Baso # Seg Neutrophils % Seg Neuts % (Manual) Monocytes % (Manual) Nucleated RBC % Seg Neutrophils # Seg Neutrophils # Man Monocytes # (Manual) PT INR D-Dimer POC ABG pH POC ABG pCO2 POC ABG pO2 Sodium Potassium Chloride Carbon Dioxide BUN Creatinine Glucose POC Glucose 139 H 158 H 173 H Lactic Acid Calcium AST ALT C-Reactive Protein Total Protein Albumin Salicylates Miscellaneous Test 12/05/17 12/06/17 12/06/17 17:45 00:12 06:09 WBC RBC Hgb Hct MCV MCH MCHC RDW Plt Count Lymph % (Auto) [place] % (Auto) Eos % (Auto) Lymph # [place] # Eos # Baso # Seg Neutrophils % Seg Neuts % (Manual) Monocytes % (Manual) Nucleated RBC % Seg Neutrophils # Seg Neutrophils # Man Monocytes # (Manual) PT INR D-Dimer POC ABG pH POC ABG pCO2 POC ABG pO2 Sodium Potassium Chloride Carbon Dioxide BUN Creatinine Glucose POC Glucose 148 H 148 H 205 H Lactic Acid Calcium AST ALT C-Reactive Protein Total Protein Albumin Salicylates Miscellaneous Test 12/06/17 12/06/17 12/07/17 11:58 23:36 05:34 WBC RBC Hgb Hct MCV MCH MCHC RDW Plt Count Lymph % (Auto) [place] % (Auto) Eos % (Auto) Lymph # [place] # Eos # Baso # Seg Neutrophils % Seg Neuts % (Manual) Monocytes % (Manual) Nucleated RBC % Seg Neutrophils # Seg Neutrophils # Man Monocytes # (Manual) PT INR D-Dimer POC ABG pH POC ABG pCO2 POC ABG pO2 Sodium Potassium Chloride Carbon Dioxide BUN Creatinine Glucose POC Glucose 203 H 161 H 193 H Lactic Acid Calcium AST ALT C-Reactive Protein Total Protein Albumin Salicylates Miscellaneous Test 12/07/17 12/07/17 12/07/17 11:43 12:14 16:47 WBC RBC Hgb Hct MCV MCH MCHC RDW Plt Count Lymph % (Auto) [place] % (Auto) Eos % (Auto) Lymph # [place] # Eos # Baso # Seg Neutrophils % Seg Neuts % (Manual) Monocytes % (Manual) Nucleated RBC % Seg Neutrophils # Seg Neutrophils # Man Monocytes # (Manual) PT INR D-Dimer POC ABG pH 7.461 H POC ABG pCO2 58.7 H POC ABG pO2 59 L Sodium Potassium Chloride Carbon Dioxide BUN Creatinine Glucose POC Glucose 176 H 162 H Lactic Acid Calcium AST ALT C-Reactive Protein Total Protein Albumin Salicylates Miscellaneous Test 12/07/17 12/08/17 12/08/17 23:49 04:00 04:05 WBC RBC Hgb Hct MCV MCH MCHC RDW Plt Count Lymph % (Auto) [place] % (Auto) Eos % (Auto) Lymph # [place] # Eos # Baso # Seg Neutrophils % Seg Neuts % (Manual) Monocytes % (Manual) Nucleated RBC % Seg Neutrophils # Seg Neutrophils # Man Monocytes # (Manual) PT INR D-Dimer POC ABG pH 7.484 H POC ABG pCO2 56.6 H POC ABG pO2 53 L Sodium 149 H Potassium 2.8 L* Chloride Carbon Dioxide 37 H BUN 31 H Creatinine Glucose 131 H POC Glucose 135 H Lactic Acid Calcium AST ALT C-Reactive Protein Total Protein Albumin Salicylates Miscellaneous Test 12/08/17 12/08/17 04:41 05:08 WBC 14.4 H RBC Hgb Hct MCV MCH MCHC RDW 15.8 H Plt Count 518 H Lymph % (Auto) 12.3 L [place] % (Auto) 8.0 H Eos % (Auto) Lymph # [place] # 1.2 H Eos # Baso # 0.2 H Seg Neutrophils % 75.8 H Seg Neuts % (Manual) Monocytes % (Manual) Nucleated RBC % Seg Neutrophils # 10.9 H Seg Neutrophils # Man Monocytes # (Manual) PT INR D-Dimer POC ABG pH POC ABG pCO2 POC ABG pO2 Sodium Potassium Chloride Carbon Dioxide BUN Creatinine Glucose POC Glucose 128 H Lactic Acid Calcium AST ALT C-Reactive Protein Total Protein Albumin Salicylates Miscellaneous Test
[2017-12-09] MEDS: DUONEB *Not for PRN Use IH SCH ×3 (00:39→15:06)
[2017-12-09 04:32] LABS: Calcium 8.5 mg/dL (8.4-10.2)
[2017-12-09 04:55] LABS: Basophils # (Auto) 0.2 K/mm3 (0.0-0.1); Basophils % (Auto) 1.1 % (0.0-1.8); Eosinophils # (Auto) 0.3 K/mm3 (0.0-0.4); Hematocrit 40.9 % (30.3-42.9); Hemoglobin 13.3 gm/dl (10.1-14.3); Lymphocytes # (Auto) 1.6 K/mm3 (1.2-5.4); Mean Corpuscular HGB Conc 33 % (30-34); Mean Corpuscular Hemoglobin 31 pg (28-32); Mean Corpuscular Volume 96 fl (79-97); Monocytes # (Auto) 1.3 K/mm3 (0.0-0.8); Monocytes % (Auto) 8.8 % (0.0-7.3); Platelet Count 538 K/mm3 (140-440); Red Blood Count 4.27 M/mm3 (3.65-5.03); Red Cell Distribution Width 15.6 % (13.2-15.2)
[2017-12-09] MEDS: HEPARIN SUB-Q SCH ×3 (05:57→22:14)
[2017-12-09] MEDS: KEPPRA PO SCH ×3 (05:58→18:47)
--- NOTE | 2017-12-09 11:03 | Progress Note ---
Assessment and Plan Assessment and plan: S/p cardiopulmonary arrest. Etiology likely secondary to respiratory arrest. - Anoxic encephalopathy; EEG showed no cortical activity - Neurology following Anoxic brain injury. CT and MRI suggest anoxic brain injury. No pupillary reflex. COPD exacerbation. Continue bronchodilators. Sepsis. ID following and previously on IV antibiotics. Completed zosyn 10 days and tamiflu 5 days Etiology most likely central fever +/- influenza +/- pneumonia. Hypokalemia. Replete K Possible complex partial seizures with secondary generalization. Continue Keppra and Ativan as needed Acute hypercapneic resp failure. Continue mechanical ventilation per pulmonary TAMARA - Resolved Disposition. Family wishes to continue all efforts for survival. She is still full code. They are interested in a second opinion at [place]. History Interval history: This unfortunate 56 year old female who was found pulseless, in asystole on and resuscitated, remains with no neurological function at this time. CT confirms severe anoxic damage from 11/26/17. EEG reveals no cortical activity. She is off all sedation. Patient fits criteria for brain , cortical. Brain stem has function only demonstrated by spontaneous respiration off the ventilator. Hospitalist Physical - Constitutional Vitals: Temp Pulse Resp BP Pulse Ox 98 F 94 H 18 148/69 94 12/09/17 06:00 12/09/17 08:48 12/09/17 08:48 12/09/17 08:48 12/09/17 08:48 General appearance: Present: other (on mech vent, ) Results - Labs CBC & Chem 7: 12/09/17 03:40 12/09/17 03:40 Labs: Laboratory Last Values WBC 14.6 K/mm3 (4.5-11.0) H 12/09/17 03:40 RBC 4.27 M/mm3 (3.65-5.03) 12/09/17 03:40 Hgb 13.3 gm/dl (10.1-14.3) 12/09/17 03:40 Hct 40.9 % (30.3-42.9) 12/09/17 03:40 MCV 96 fl (79-97) 12/09/17 03:40 MCH 31 pg (28-32) 12/09/17 03:40 MCHC 33 % (30-34) 12/09/17 03:40 RDW 15.6 % (13.2-15.2) H 12/09/17 03:40 Plt Count 538 K/mm3 (140-440) H 12/09/17 03:40 Lymph % (Auto) 11.0 % (13.4-35.0) L 12/09/17 03:40 [place] % (Auto) 8.8 % (0.0-7.3) H 12/09/17 03:40 Eos % (Auto) 2.0 % (0.0-4.3) 12/09/17 03:40 Baso % (Auto) 1.1 % (0.0-1.8) 12/09/17 03:40 Lymph # 1.6 K/mm3 (1.2-5.4) 12/09/17 03:40 [place] # 1.3 K/mm3 (0.0-0.8) H 12/09/17 03:40 Eos # 0.3 K/mm3 (0.0-0.4) 12/09/17 03:40 Baso # 0.2 K/mm3 (0.0-0.1) H 12/09/17 03:40 Add Manual Diff Complete 11/23/17 12:44 Total Counted 100 11/23/17 12:44 Seg Neutrophils % 77.1 % (40.0-70.0) H 12/09/17 03:40 Seg Neuts % (Manual) 71.0 % (40.0-70.0) H 11/23/17 12:44 Band Neutrophils % 3.0 % 11/23/17 12:44 Lymphocytes % (Manual) 18.0 % (13.4-35.0) 11/23/17 12:44 Reactive Lymphs % (Man) 0 % 11/23/17 12:44 Monocytes % (Manual) 8.0 % (0.0-7.3) H 11/23/17 12:44 Eosinophils % (Manual) 0 % (0.0-4.3) 11/23/17 12:44 Basophils % (Manual) 0 % (0.0-1.8) 11/23/17 12:44 Metamyelocytes % 0 % 11/23/17 12:44 Myelocytes % 0 % 11/23/17 12:44 Promyelocytes % 0 % 11/23/17 12:44 Blast Cells % 0 % 11/23/17 12:44 Nucleated RBC % 6.0 % (0.0-0.9) H 11/23/17 12:44 Seg Neutrophils # 11.2 K/mm3 (1.8-7.7) H 12/09/17 03:40 Seg Neutrophils # Man 9.2 K/mm3 (1.8-7.7) H 11/23/17 12:44 Band Neutrophils # 0.4 K/mm3 11/23/17 12:44 Lymphocytes # (Manual) 2.3 K/mm3 (1.2-5.4) 11/23/17 12:44 Abs React Lymphs (Man) 0.0 K/mm3 11/23/17 12:44 Monocytes # (Manual) 1.0 K/mm3 (0.0-0.8) H 11/23/17 12:44 Eosinophils # (Manual) 0.0 K/mm3 (0.0-0.4) 11/23/17 12:44 Basophils # (Manual) 0.0 K/mm3 (0.0-0.1) 11/23/17 12:44 Metamyelocytes # 0.0 K/mm3 11/23/17 12:44 Myelocytes # 0.0 K/mm3 11/23/17 12:44 Promyelocytes # 0.0 K/mm3 11/23/17 12:44 Blast Cells # 0.0 K/mm3 11/23/17 12:44 WBC Morphology Not Reportable 11/23/17 12:44 Hypersegmented Neuts Not Reportable 11/23/17 12:44 Hyposegmented Neuts Not Reportable 11/23/17 12:44 Hypogranular Neuts Not Reportable 11/23/17 12:44 Smudge Cells Not Reportable 11/23/17 12:44 Toxic Granulation Not Reportable 11/23/17 12:44 Toxic Vacuolation Not Reportable 11/23/17 12:44 Dohle Bodies Not Reportable 11/23/17 12:44 Pelger-Huet Anomaly Not Reportable 11/23/17 12:44 Erika Rods Not Reportable 11/23/17 12:44 Platelet Estimate Consistent w auto 11/23/17 12:44 Clumped Platelets Not Reportable 11/23/17 12:44 Plt Clumps, EDTA Not Reportable 11/23/17 12:44 Large Platelets Not Reportable 11/23/17 12:44 Giant Platelets Not Reportable 11/23/17 12:44 Platelet Satelliting Not Reportable 11/23/17 12:44 Plt Morphology Comment Not Reportable 11/23/17 12:44 RBC Morphology Not Reportable 11/23/17 12:44 Dimorphic RBCs Not Reportable 11/23/17 12:44 Polychromasia Rare 11/23/17 12:44 Hypochromasia Not Reportable 11/23/17 12:44 Poikilocytosis Not Reportable 11/23/17 12:44 Anisocytosis 1+ 11/23/17 12:44 Microcytosis Not Reportable 11/23/17 12:44 Macrocytosis 1+ 11/23/17 12:44 Spherocytes Not Reportable 11/23/17 12:44 Pappenheimer Bodies Not Reportable 11/23/17 12:44 Sickle Cells Not Reportable 11/23/17 12:44 Target Cells Not Reportable 11/23/17 12:44 Tear Drop Cells Not Reportable 11/23/17 12:44 Ovalocytes Not Reportable 11/23/17 12:44 Helmet Cells Not Reportable 11/23/17 12:44 Mart-Roca Bodies Not Reportable 11/23/17 12:44 Bowler Rings Not Reportable 11/23/17 12:44 Valentino Cells Not Reportable 11/23/17 12:44 Bite Cells Not Reportable 11/23/17 12:44 Crenated Cell Not Reportable 11/23/17 12:44 Elliptocytes Not Reportable 11/23/17 12:44 Acanthocytes (Spur) Not Reportable 11/23/17 12:44 Rouleaux Not Reportable 11/23/17 12:44 Hemoglobin C Crystals Not Reportable 11/23/17 12:44 Schistocytes Not Reportable 11/23/17 12:44 Malaria parasites Not Reportable 11/23/17 12:44 Brett Bodies Not Reportable 11/23/17 12:44 Hem Pathologist Commnt No 11/23/17 12:44 PT 15.3 Sec. (12.2-14.9) H 11/23/17 12:44 INR 1.15 (0.87-1.13) H 11/23/17 12:44 APTT 33.9 Sec. (24.2-36.6) 11/23/17 12:44 D-Dimer 1977.37 ng/mlDDU (0-234) H 11/24/17 14:44 POC ABG pH 7.484 (7.35-7.45) H 12/08/17 04:05 POC ABG pCO2 56.6 (35-45) H 12/08/17 04:05 POC ABG pO2 53 (80-105) L 12/08/17 04:05 POC ABG HCO3 42.5 12/08/17 04:05 POC ABG Total CO2 44 12/08/17 04:05 POC ABG O2 Sat 88 12/08/17 04:05 POC ABG Base Excess 19 12/08/17 04:05 FiO2 50 % 12/08/17 04:05 Sodium 147 mmol/L (137-145) H 12/09/17 03:40 Potassium 3.8 mmol/L (3.6-5.0) D 12/09/17 03:40 Chloride 101.0 mmol/L (98-107) 12/09/17 03:40 Carbon Dioxide 35 mmol/L (22-30) H 12/09/17 03:40 Anion Gap 15 mmol/L 12/09/17 03:40 BUN 30 mg/dL (7-17) H 12/09/17 03:40 Creatinine 1.1 mg/dL (0.7-1.2) 12/09/17 03:40 Estimated GFR 51 ml/min 12/09/17 03:40 BUN/Creatinine Ratio 27 % 12/09/17 03:40 Glucose 141 mg/dL (65-100) H 12/09/17 03:40 POC Glucose 130 (70-105) H 12/08/17 23:28 Lactic Acid 2.00 mmol/L (0.7-2.0) 11/25/17 10:25 Calcium 8.5 mg/dL (8.4-10.2) 12/09/17 03:40 Magnesium 1.90 mg/dL (1.7-2.3) 11/28/17 03:17 Total Bilirubin 0.60 mg/dL (0.1-1.2) 11/25/17 03:02 Direct Bilirubin 0.2 mg/dL (0-0.2) 11/25/17 03:02 Indirect Bilirubin 0.4 mg/dL 11/25/17 03:02 AST 300 units/L (5-40) H 11/25/17 03:02 ALT 561 units/L (7-56) H 11/25/17 03:02 Alkaline Phosphatase 54 units/L (35-129) 11/25/17 03:02 Troponin T < 0.010 ng/mL (0.00-0.029) 11/23/17 12:44 C-Reactive Protein 13.70 mg/dL (0.00-1.30) H 11/27/17 16:18 Total Protein 4.5 g/dL (6.3-8.2) L 11/25/17 03:02 Albumin 2.4 g/dL (3.9-5) L 11/25/17 03:02 Albumin/Globulin Ratio 1.1 % 11/25/17 03:02 Urine Color Yellow (Yellow) 11/23/17 13:39 Urine Turbidity Clear (Clear) 11/23/17 13:39 Urine pH 5.0 (5.0-7.0) 11/23/17 13:39 Ur Specific [place] 1.020 (1.003-1.030) 11/23/17 13:39 Urine Protein 30 mg/dl mg/dL (Negative) 11/23/17 13:39 Urine Glucose (UA) Neg mg/dL (Negative) 11/23/17 13:39 Urine Ketones Neg mg/dL (Negative) 11/23/17 13:39 Urine Blood Neg (Negative) 11/23/17 13:39 Urine Nitrite Neg (Negative) 11/23/17 13:39 Urine Bilirubin Neg (Negative) 11/23/17 13:39 Urine Urobilinogen 2.0 mg/dL (<2.0) 11/23/17 13:39 Ur Leukocyte Esterase Neg (Negative) 11/23/17 13:39 Urine WBC (Auto) 5.0 /HPF (0.0-6.0) 11/23/17 13:39 Urine RBC (Auto) 1.0 /HPF (0.0-6.0) 11/23/17 13:39 U Epithel Cells (Auto) 1.0 /HPF (0-13.0) 11/23/17 13:39 Urine Bacteria (Auto) 1+ /HPF (Negative) 11/23/17 13:39 Hyaline Casts 11 /LPF 11/23/17 13:39 Urine Mucus 2+ /HPF 11/23/17 13:39 Salicylates < 0.3 mg/dL (2.8-20.0) L 11/23/17 15:54 Urine Opiates Screen Presumptive positive 11/23/17 13:39 Urine Methadone Screen Presumptive negative 11/23/17 13:39 Acetaminophen < 15.0 ug/mL (10.0-30.0) 11/23/17 15:54 Ur Barbiturates Screen Presumptive negative 11/23/17 13:39 Levetiracetam 30.0 mcg/mL 11/25/17 17:30 Ur Phencyclidine Scrn Presumptive negative 11/23/17 13:39 Ur Amphetamines Screen Presumptive negative 11/23/17 13:39 U Benzodiazepines Scrn Presumptive positive 11/23/17 13:39 Urine Cocaine Screen Presumptive negative 11/23/17 13:39 U Marijuana (THC) Screen Presumptive negative 11/23/17 13:39 Drugs of Abuse Note Disclamer 11/23/17 13:39 Miscellaneous Test Flexitest 1 H 11/28/17 09:23
--- NOTE | 2017-12-09 13:12 | Progress Note ---
Assessment and Plan Acute hypoxemic respiratory failure, on mechanical ventilatory support. Status post cardiac arrest. Likely aspiration pneumonia. Acute encephalopathy with myoclonic jerks at this point, but with evidence of brainstem function. Acute exacerbation of chronic obstructive pulmonary disease. Tobacco use disorder. Obesity. Hypertension. History of alcohol abuse Hypernatremia - continue full MVS acutely - continue to wean oxygen for sats > 90% - stopped versed and watching for tremors/seizures - Encephalopathy w/up ongoing - free water - stopped benadryl for angioedema type tongue swelling (swelling better) - continue GI prophylaxis - continue aspiration precautions / address VAP bundle daily - continue bronchodilators and pulmonary hygiene per RT - continue reglan - continue enteral nutrition - continue GI & VTE prophylaxis - continue empiric AB's and follow C&S - continue other care per attending/ other consultants ....remains critically ill on MVS and at high risk for further deterioration including ..30' CCT Subjective Date of service: 12/09/17 Principal diagnosis: Acute Hypoxemic Resp Failure; S/P Cardiac Arrest; Acute Encephalopathy Interval history: Patient is seen today for: Acute Hypoxemic Resp Failure; S/P Cardiac Arrest; Acute Encephalopathy Seen and examined at bedside; 24hour events reviewed; nursing and respiratory care staff consulted; no adverse overnight events reported to me; reamins on MVS ; remains with severe encephalopathy; remains hypoxemic; no emesis or overt aspiration Objective Vital Signs - 12hr 12/09/17 12/09/17 12/09/17 02:00 03:00 03:36 Temperature Pulse Rate 88 90 93 H Pulse Rate [ Anterior Bilateral Throughout] Pulse Rate [ From Monitor] Pulse Rate [ Left Dorsalis Pedis] Pulse Rate [ Left Radial] Pulse Rate [ Right Dorsalis Pedis] Pulse Rate [ Right Radial] Respiratory 18 18 Rate Respiratory Rate [Anterior Bilateral Throughout] Blood Pressure 122/67 130/65 130/65 O2 Sat by Pulse 94 94 95 Oximetry 12/09/17 12/09/17 12/09/17 04:00 05:00 06:00 Temperature 100.1 F H 98 F Pulse Rate 93 H 92 H 92 H Pulse Rate [ Anterior Bilateral Throughout] Pulse Rate [ 78 75 From Monitor] Pulse Rate [ 75 75 Left Dorsalis Pedis] Pulse Rate [ 75 75 Left Radial] Pulse Rate [ 78 75 Right Dorsalis Pedis] Pulse Rate [ 75 75 Right Radial] Respiratory 19 19 18 Rate Respiratory Rate [Anterior Bilateral Throughout] Blood Pressure 130/65 133/70 133/70 O2 Sat by Pulse 94 94 94 Oximetry 12/09/17 12/09/17 12/09/17 07:00 08:00 08:48 Temperature 100.7 F H Pulse Rate 92 H 94 H Pulse Rate [ 94 H Anterior Bilateral Throughout] Pulse Rate [ From Monitor] Pulse Rate [ Left Dorsalis Pedis] Pulse Rate [ Left Radial] Pulse Rate [ Right Dorsalis Pedis] Pulse Rate [ Right Radial] Respiratory 19 18 Rate Respiratory 18 Rate [Anterior Bilateral Throughout] Blood Pressure 155/72 148/69 O2 Sat by Pulse 93 94 Oximetry 12/09/17 11:19 Temperature Pulse Rate 90 Pulse Rate [ Anterior Bilateral Throughout] Pulse Rate [ From Monitor] Pulse Rate [ Left Dorsalis Pedis] Pulse Rate [ Left Radial] Pulse Rate [ Right Dorsalis Pedis] Pulse Rate [ Right Radial] Respiratory Rate Respiratory Rate [Anterior Bilateral Throughout] Blood Pressure 124/68 O2 Sat by Pulse 93 Oximetry Constitutional: appears uncomfortable, other (obtunded) Eyes: non-icteric ENT: oropharynx moist Neck: supple, no lymphadenopathy, no JVD, other (no thyromegaly) Effort: mildly labored Ascultation: Bilateral: diminished breath sounds, rhonchi Percussion: Bilateral: not dull Cardiovascular: regular rate and rhythm, other (no rubs or murmurs) Gastrointestinal: hypoactive bowel sounds, soft, non-tender, non-distended, other (no palapble HSM) Integumentary: normal Extremities: no cyanosis, pink and warm, pulses normal, edema Neurologic: pupils equal and round, unable to assess Psychiatric: other (unable to assess) CBC and BMP: 12/10/17 03:40 12/10/17 03:40 ABG, PT/INR, D-dimer: ABG POC ABG pH 7.484 (7.35-7.45) H 12/08/17 04:05 POC ABG pCO2 56.6 (35-45) H 12/08/17 04:05 POC ABG pO2 53 (80-105) L 12/08/17 04:05 POC ABG HCO3 42.5 12/08/17 04:05 POC ABG Total CO2 44 12/08/17 04:05 POC ABG O2 Sat 88 12/08/17 04:05 PT/INR, D-dimer PT 15.3 Sec. (12.2-14.9) H 11/23/17 12:44 INR 1.15 (0.87-1.13) H 11/23/17 12:44 D-Dimer 1977.37 ng/mlDDU (0-234) H 11/24/17 14:44 Abnormal lab findings: Abnormal Labs 11/23/17 11/23/17 11/23/17 12:44 12:44 12:44 WBC 13.0 H RBC Hgb Hct 46.1 H MCV 112 H MCH 33 H MCHC 29 L RDW 18.5 H Plt Count Lymph % (Auto) [place] % (Auto) Eos % (Auto) Lymph # [place] # Eos # Baso # Seg Neutrophils % Seg Neuts % (Manual) 71.0 H Monocytes % (Manual) 8.0 H Nucleated RBC % 6.0 H Seg Neutrophils # Seg Neutrophils # Man 9.2 H Monocytes # (Manual) 1.0 H PT 15.3 H INR 1.15 H D-Dimer POC ABG pH POC ABG pCO2 POC ABG pO2 Sodium Potassium 5.4 H Chloride 85.2 L Carbon Dioxide BUN 19 H Creatinine 1.3 H Glucose 175 H POC Glucose Lactic Acid Calcium AST 310 H ALT 262 H C-Reactive Protein Total Protein 5.7 L Albumin 2.9 L Salicylates Miscellaneous Test 11/23/17 11/23/17 11/23/17 12:44 13:23 15:54 WBC RBC Hgb Hct MCV MCH MCHC RDW Plt Count Lymph % (Auto) [place] % (Auto) Eos % (Auto) Lymph # [place] # Eos # Baso # Seg Neutrophils % Seg Neuts % (Manual) Monocytes % (Manual) Nucleated RBC % Seg Neutrophils # Seg Neutrophils # Man Monocytes # (Manual) PT INR D-Dimer POC ABG pH 7.035 L POC ABG pCO2 99.1 H POC ABG pO2 343 H Sodium Potassium Chloride Carbon Dioxide BUN Creatinine Glucose POC Glucose Lactic Acid 16.10 H* Calcium AST ALT C-Reactive Protein Total Protein Albumin Salicylates < 0.3 L Miscellaneous Test 11/23/17 11/24/17 11/24/17 16:42 04:03 04:03 WBC 16.8 H RBC Hgb 15.7 H Hct 48.9 H MCV 101 H MCH MCHC RDW 16.5 H Plt Count Lymph % (Auto) 5.2 L [place] % (Auto) Eos % (Auto) Lymph # 0.9 L [place] # 0.9 H Eos # Baso # Seg Neutrophils % 89.1 H Seg Neuts % (Manual) Monocytes % (Manual) Nucleated RBC % Seg Neutrophils # 14.9 H Seg Neutrophils # Man Monocytes # (Manual) PT INR D-Dimer POC ABG pH POC ABG pCO2 POC ABG pO2 55 L Sodium Potassium Chloride 96.0 L Carbon Dioxide 33 H D BUN 28 H Creatinine 1.5 H Glucose 108 H POC Glucose Lactic Acid Calcium 7.7 L AST 1091 H ALT 986 H C-Reactive Protein Total Protein 5.0 L Albumin 2.8 L Salicylates Miscellaneous Test 11/24/17 11/24/17 11/24/17 05:55 13:29 13:29 WBC RBC Hgb Hct MCV MCH MCHC RDW Plt Count Lymph % (Auto) [place] % (Auto) Eos % (Auto) Lymph # [place] # Eos # Baso # Seg Neutrophils % Seg Neuts % (Manual) Monocytes % (Manual) Nucleated RBC % Seg Neutrophils # Seg Neutrophils # Man Monocytes # (Manual) PT INR D-Dimer POC ABG pH 7.469 H POC ABG pCO2 52.3 H POC ABG pO2 69 L Sodium Potassium Chloride Carbon Dioxide BUN Creatinine Glucose POC Glucose Lactic Acid 3.20 H* Calcium AST ALT C-Reactive Protein 9.20 H Total Protein Albumin Salicylates Miscellaneous Test 11/24/17 11/24/17 11/25/17 14:44 20:55 01:55 WBC RBC Hgb Hct MCV MCH MCHC RDW Plt Count Lymph % (Auto) [place] % (Auto) Eos % (Auto) Lymph # [place] # Eos # Baso # Seg Neutrophils % Seg Neuts % (Manual) Monocytes % (Manual) Nucleated RBC % Seg Neutrophils # Seg Neutrophils # Man Monocytes # (Manual) PT INR D-Dimer 1977.37 H POC ABG pH 7.471 H POC ABG pCO2 56.2 H POC ABG pO2 Sodium Potassium Chloride Carbon Dioxide BUN Creatinine Glucose POC Glucose Lactic Acid 3.00 H* Calcium AST ALT C-Reactive Protein Total Protein Albumin Salicylates Miscellaneous Test 11/25/17 11/25/17 11/25/17 03:02 03:02 03:02 WBC 16.0 H RBC Hgb Hct MCV 99 H MCH MCHC RDW 16.0 H Plt Count Lymph % (Auto) 11.6 L [place] % (Auto) Eos % (Auto) Lymph # [place] # 1.0 H Eos # Baso # Seg Neutrophils % 81.8 H Seg Neuts % (Manual) Monocytes % (Manual) Nucleated RBC % Seg Neutrophils # 13.1 H Seg Neutrophils # Man Monocytes # (Manual) PT INR D-Dimer POC ABG pH POC ABG pCO2 POC ABG pO2 Sodium 148 H Potassium Chloride Carbon Dioxide 35 H BUN 30 H Creatinine 1.9 H Glucose 106 H POC Glucose Lactic Acid 2.90 H* Calcium 7.0 L AST ALT C-Reactive Protein Total Protein Albumin Salicylates Miscellaneous Test 11/25/17 11/25/17 11/25/17 03:02 03:35 07:15 WBC RBC Hgb Hct MCV MCH MCHC RDW Plt Count Lymph % (Auto) [place] % (Auto) Eos % (Auto) Lymph # [place] # Eos # Baso # Seg Neutrophils % Seg Neuts % (Manual) Monocytes % (Manual) Nucleated RBC % Seg Neutrophils # Seg Neutrophils # Man Monocytes # (Manual) PT INR D-Dimer POC ABG pH 7.494 H POC ABG pCO2 48.1 H POC ABG pO2 Sodium Potassium Chloride Carbon Dioxide BUN Creatinine Glucose POC Glucose Lactic Acid 2.30 H* Calcium AST 300 H ALT 561 H C-Reactive Protein Total Protein 4.5 L Albumin 2.4 L Salicylates Miscellaneous Test 11/26/17 11/26/17 11/26/17 03:26 03:26 03:52 WBC 12.7 H RBC Hgb 14.9 H Hct 45.9 H MCV 98 H MCH MCHC RDW 16.3 H Plt Count 137 L Lymph % (Auto) 10.0 L [place] % (Auto) Eos % (Auto) Lymph # [place] # Eos # Baso # Seg Neutrophils % 82.7 H Seg Neuts % (Manual) Monocytes % (Manual) Nucleated RBC % Seg Neutrophils # 10.5 H Seg Neutrophils # Man Monocytes # (Manual) PT INR D-Dimer POC ABG pH 7.475 H POC ABG pCO2 POC ABG pO2 71 L Sodium 150 H Potassium 3.3 L Chloride Carbon Dioxide BUN 22 H Creatinine 1.7 H Glucose 107 H POC Glucose Lactic Acid Calcium 7.5 L AST ALT C-Reactive Protein Total Protein Albumin Salicylates Miscellaneous Test 11/26/17 11/26/17 11/26/17 11:49 17:53 23:56 WBC RBC Hgb Hct MCV MCH MCHC RDW Plt Count Lymph % (Auto) [place] % (Auto) Eos % (Auto) Lymph # [place] # Eos # Baso # Seg Neutrophils % Seg Neuts % (Manual) Monocytes % (Manual) Nucleated RBC % Seg Neutrophils # Seg Neutrophils # Man Monocytes # (Manual) PT INR D-Dimer POC ABG pH POC ABG pCO2 POC ABG pO2 Sodium Potassium Chloride Carbon Dioxide BUN Creatinine Glucose POC Glucose 109 H 168 H 145 H Lactic Acid Calcium AST ALT C-Reactive Protein Total Protein Albumin Salicylates Miscellaneous Test 11/27/17 11/27/17 11/27/17 04:22 04:22 04:53 WBC 11.7 H RBC Hgb 15.7 H Hct 49.8 H MCV 100 H MCH MCHC RDW 16.4 H Plt Count 105 L Lymph % (Auto) 7.6 L [place] % (Auto) 8.7 H Eos % (Auto) Lymph # 0.9 L [place] # 1.0 H Eos # Baso # Seg Neutrophils % 83.2 H Seg Neuts % (Manual) Monocytes % (Manual) Nucleated RBC % Seg Neutrophils # 9.7 H Seg Neutrophils # Man Monocytes # (Manual) PT INR D-Dimer POC ABG pH POC ABG pCO2 53.1 H POC ABG pO2 70 L Sodium 155 H Potassium Chloride 113.1 H Carbon Dioxide BUN Creatinine 1.5 H Glucose 128 H POC Glucose Lactic Acid Calcium 7.4 L AST ALT C-Reactive Protein Total Protein Albumin Salicylates Miscellaneous Test 11/27/17 11/27/17 11/27/17 05:34 11:27 16:18 WBC RBC Hgb Hct MCV MCH MCHC RDW Plt Count Lymph % (Auto) [place] % (Auto) Eos % (Auto) Lymph # [place] # Eos # Baso # Seg Neutrophils % Seg Neuts % (Manual) Monocytes % (Manual) Nucleated RBC % Seg Neutrophils # Seg Neutrophils # Man Monocytes # (Manual) PT INR D-Dimer POC ABG pH POC ABG pCO2 POC ABG pO2 Sodium Potassium Chloride Carbon Dioxide BUN Creatinine Glucose POC Glucose 120 H 129 H Lactic Acid Calcium AST ALT C-Reactive Protein 13.70 H Total Protein Albumin Salicylates Miscellaneous Test 11/27/17 11/27/17 11/28/17 17:19 23:56 03:17 WBC 14.5 H RBC Hgb 15.2 H Hct 48.3 H MCV 99 H MCH MCHC RDW 16.5 H Plt Count 108 L Lymph % (Auto) 9.7 L [place] % (Auto) Eos % (Auto) Lymph # [place] # 1.0 H Eos # Baso # Seg Neutrophils % 81.0 H Seg Neuts % (Manual) Monocytes % (Manual) Nucleated RBC % Seg Neutrophils # 11.8 H Seg Neutrophils # Man Monocytes # (Manual) PT INR D-Dimer POC ABG pH POC ABG pCO2 POC ABG pO2 Sodium Potassium Chloride Carbon Dioxide BUN Creatinine Glucose POC Glucose 138 H 125 H Lactic Acid Calcium AST ALT C-Reactive Protein Total Protein Albumin Salicylates Miscellaneous Test 11/28/17 11/28/17 11/28/17 03:17 05:34 06:46 WBC RBC Hgb Hct MCV MCH MCHC RDW Plt Count Lymph % (Auto) [place] % (Auto) Eos % (Auto) Lymph # [place] # Eos # Baso # Seg Neutrophils % Seg Neuts % (Manual) Monocytes % (Manual) Nucleated RBC % Seg Neutrophils # Seg Neutrophils # Man Monocytes # (Manual) PT INR D-Dimer POC ABG pH 7.324 L POC ABG pCO2 63.4 H POC ABG pO2 65 L Sodium 150 H Potassium 3.4 L Chloride 107.9 H Carbon Dioxide 31 H BUN 19 H Creatinine 1.3 H Glucose 126 H POC Glucose 132 H Lactic Acid Calcium 7.7 L AST ALT C-Reactive Protein Total Protein Albumin Salicylates Miscellaneous Test 11/28/17 11/28/17 11/28/17 09:23 12:17 17:20 WBC RBC Hgb Hct MCV MCH MCHC RDW Plt Count Lymph % (Auto) [place] % (Auto) Eos % (Auto) Lymph # [place] # Eos # Baso # Seg Neutrophils % Seg Neuts % (Manual) Monocytes % (Manual) Nucleated RBC % Seg Neutrophils # Seg Neutrophils # Man Monocytes # (Manual) PT INR D-Dimer POC ABG pH POC ABG pCO2 POC ABG pO2 Sodium Potassium Chloride Carbon Dioxide BUN Creatinine Glucose POC Glucose 142 H 136 H Lactic Acid Calcium AST ALT C-Reactive Protein Total Protein Albumin Salicylates Miscellaneous Test Flexitest 1 H 11/29/17 11/29/17 11/29/17 00:12 04:36 04:47 WBC 14.1 H RBC 5.32 H Hgb 16.4 H Hct 51.2 H MCV MCH MCHC RDW 15.8 H Plt Count 77 L Lymph % (Auto) 7.6 L [place] % (Auto) Eos % (Auto) Lymph # 1.1 L [place] # 0.9 H Eos # 0.5 H Baso # Seg Neutrophils % 81.5 H Seg Neuts % (Manual) Monocytes % (Manual) Nucleated RBC % Seg Neutrophils # 11.5 H Seg Neutrophils # Man Monocytes # (Manual) PT INR D-Dimer POC ABG pH POC ABG pCO2 POC ABG pO2 61 L Sodium Potassium Chloride Carbon Dioxide BUN Creatinine Glucose POC Glucose 119 H Lactic Acid Calcium AST ALT C-Reactive Protein Total Protein Albumin Salicylates Miscellaneous Test 11/29/17 11/29/17 11/29/17 04:47 05:29 11:48 WBC RBC Hgb Hct MCV MCH MCHC RDW Plt Count Lymph % (Auto) [place] % (Auto) Eos % (Auto) Lymph # [place] # Eos # Baso # Seg Neutrophils % Seg Neuts % (Manual) Monocytes % (Manual) Nucleated RBC % Seg Neutrophils # Seg Neutrophils # Man Monocytes # (Manual) PT INR D-Dimer POC ABG pH POC ABG pCO2 POC ABG pO2 Sodium Potassium Chloride Carbon Dioxide BUN 18 H Creatinine Glucose 119 H POC Glucose 128 H 128 H Lactic Acid Calcium 8.2 L AST ALT C-Reactive Protein Total Protein Albumin Salicylates Miscellaneous Test 11/29/17 11/29/17 11/30/17 17:32 17:39 03:48 WBC 13.5 H RBC Hgb 15.4 H Hct 47.2 H MCV MCH MCHC RDW 16.3 H Plt Count Lymph % (Auto) 10.5 L [place] % (Auto) 7.7 H Eos % (Auto) Lymph # [place] # 1.0 H Eos # 0.5 H Baso # Seg Neutrophils % 76.8 H Seg Neuts % (Manual) Monocytes % (Manual) Nucleated RBC % Seg Neutrophils # 10.4 H Seg Neutrophils # Man Monocytes # (Manual) PT INR D-Dimer POC ABG pH POC ABG pCO2 51.6 H POC ABG pO2 345 H Sodium Potassium Chloride Carbon Dioxide BUN Creatinine Glucose POC Glucose 124 H Lactic Acid Calcium AST ALT C-Reactive Protein Total Protein Albumin Salicylates Miscellaneous Test 11/30/17 11/30/17 11/30/17 03:48 03:52 23:37 WBC RBC Hgb Hct MCV MCH MCHC RDW Plt Count Lymph % (Auto) [place] % (Auto) Eos % (Auto) Lymph # [place] # Eos # Baso # Seg Neutrophils % Seg Neuts % (Manual) Monocytes % (Manual) Nucleated RBC % Seg Neutrophils # Seg Neutrophils # Man Monocytes # (Manual) PT INR D-Dimer POC ABG pH 7.503 H POC ABG pCO2 POC ABG pO2 65 L Sodium Potassium Chloride Carbon Dioxide BUN Creatinine Glucose 121 H POC Glucose 140 H Lactic Acid Calcium 7.6 L AST ALT C-Reactive Protein Total Protein Albumin Salicylates Miscellaneous Test 12/01/17 12/01/17 12/01/17 03:17 05:30 12:37 WBC RBC Hgb Hct MCV MCH MCHC RDW Plt Count Lymph % (Auto) [place] % (Auto) Eos % (Auto) Lymph # [place] # Eos # Baso # Seg Neutrophils % Seg Neuts % (Manual) Monocytes % (Manual) Nucleated RBC % Seg Neutrophils # Seg Neutrophils # Man Monocytes # (Manual) PT INR D-Dimer POC ABG pH POC ABG pCO2 52.7 H POC ABG pO2 64 L Sodium Potassium Chloride Carbon Dioxide BUN Creatinine Glucose POC Glucose 171 H 175 H Lactic Acid Calcium AST ALT C-Reactive Protein Total Protein Albumin Salicylates Miscellaneous Test 12/01/17 12/02/17 12/02/17 17:41 00:01 03:17 WBC RBC Hgb Hct MCV MCH MCHC RDW Plt Count Lymph % (Auto) [place] % (Auto) Eos % (Auto) Lymph # [place] # Eos # Baso # Seg Neutrophils % Seg Neuts % (Manual) Monocytes % (Manual) Nucleated RBC % Seg Neutrophils # Seg Neutrophils # Man Monocytes # (Manual) PT INR D-Dimer POC ABG pH POC ABG pCO2 51.5 H POC ABG pO2 67 L Sodium Potassium Chloride Carbon Dioxide BUN Creatinine Glucose POC Glucose 165 H 184 H Lactic Acid Calcium AST ALT C-Reactive Protein Total Protein Albumin Salicylates Miscellaneous Test 12/02/17 12/02/17 12/02/17 05:54 11:44 18:04 WBC RBC Hgb Hct MCV MCH MCHC RDW Plt Count Lymph % (Auto) [place] % (Auto) Eos % (Auto) Lymph # [place] # Eos # Baso # Seg Neutrophils % Seg Neuts % (Manual) Monocytes % (Manual) Nucleated RBC % Seg Neutrophils # Seg Neutrophils # Man Monocytes # (Manual) PT INR D-Dimer POC ABG pH POC ABG pCO2 POC ABG pO2 Sodium Potassium Chloride Carbon Dioxide BUN Creatinine Glucose POC Glucose 208 H 175 H 146 H Lactic Acid Calcium AST ALT C-Reactive Protein Total Protein Albumin Salicylates Miscellaneous Test 12/03/17 12/03/17 12/03/17 00:16 05:59 12:09 WBC RBC Hgb Hct MCV MCH MCHC RDW Plt Count Lymph % (Auto) [place] % (Auto) Eos % (Auto) Lymph # [place] # Eos # Baso # Seg Neutrophils % Seg Neuts % (Manual) Monocytes % (Manual) Nucleated RBC % Seg Neutrophils # Seg Neutrophils # Man Monocytes # (Manual) PT INR D-Dimer POC ABG pH POC ABG pCO2 53.1 H POC ABG pO2 60 L Sodium Potassium Chloride Carbon Dioxide BUN Creatinine Glucose POC Glucose 135 H 137 H Lactic Acid Calcium AST ALT C-Reactive Protein Total Protein Albumin Salicylates Miscellaneous Test 12/03/17 12/03/17 12/03/17 17:19 20:02 23:30 WBC 13.3 H RBC Hgb 15.1 H Hct 47.0 H MCV MCH MCHC RDW 15.8 H Plt Count Lymph % (Auto) 11.6 L [place] % (Auto) Eos % (Auto) 4.5 H Lymph # [place] # Eos # 0.6 H Baso # Seg Neutrophils % 76.6 H Seg Neuts % (Manual) Monocytes % (Manual) Nucleated RBC % Seg Neutrophils # 10.2 H Seg Neutrophils # Man Monocytes # (Manual) PT INR D-Dimer POC ABG pH POC ABG pCO2 POC ABG pO2 Sodium Potassium Chloride Carbon Dioxide BUN Creatinine Glucose POC Glucose 134 H 118 H Lactic Acid Calcium AST ALT C-Reactive Protein Total Protein Albumin Salicylates Miscellaneous Test 12/04/17 12/04/17 12/04/17 06:07 11:54 17:20 WBC RBC Hgb Hct MCV MCH MCHC RDW Plt Count Lymph % (Auto) [place] % (Auto) Eos % (Auto) Lymph # [place] # Eos # Baso # Seg Neutrophils % Seg Neuts % (Manual) Monocytes % (Manual) Nucleated RBC % Seg Neutrophils # Seg Neutrophils # Man Monocytes # (Manual) PT INR D-Dimer POC ABG pH POC ABG pCO2 POC ABG pO2 Sodium Potassium Chloride Carbon Dioxide BUN Creatinine Glucose POC Glucose 163 H 154 H 143 H Lactic Acid Calcium AST ALT C-Reactive Protein Total Protein Albumin Salicylates Miscellaneous Test 12/04/17 12/05/17 12/05/17 23:51 06:14 11:36 WBC RBC Hgb Hct MCV MCH MCHC RDW Plt Count Lymph % (Auto) [place] % (Auto) Eos % (Auto) Lymph # [place] # Eos # Baso # Seg Neutrophils % Seg Neuts % (Manual) Monocytes % (Manual) Nucleated RBC % Seg Neutrophils # Seg Neutrophils # Man Monocytes # (Manual) PT INR D-Dimer POC ABG pH POC ABG pCO2 POC ABG pO2 Sodium Potassium Chloride Carbon Dioxide BUN Creatinine Glucose POC Glucose 139 H 158 H 173 H Lactic Acid Calcium AST ALT C-Reactive Protein Total Protein Albumin Salicylates Miscellaneous Test 12/05/17 12/06/17 12/06/17 17:45 00:12 06:09 WBC RBC Hgb Hct MCV MCH MCHC RDW Plt Count Lymph % (Auto) [place] % (Auto) Eos % (Auto) Lymph # [place] # Eos # Baso # Seg Neutrophils % Seg Neuts % (Manual) Monocytes % (Manual) Nucleated RBC % Seg Neutrophils # Seg Neutrophils # Man Monocytes # (Manual) PT INR D-Dimer POC ABG pH POC ABG pCO2 POC ABG pO2 Sodium Potassium Chloride Carbon Dioxide BUN Creatinine Glucose POC Glucose 148 H 148 H 205 H Lactic Acid Calcium AST ALT C-Reactive Protein Total Protein Albumin Salicylates Miscellaneous Test 12/06/17 12/06/17 12/07/17 11:58 23:36 05:34 WBC RBC Hgb Hct MCV MCH MCHC RDW Plt Count Lymph % (Auto) [place] % (Auto) Eos % (Auto) Lymph # [place] # Eos # Baso # Seg Neutrophils % Seg Neuts % (Manual) Monocytes % (Manual) Nucleated RBC % Seg Neutrophils # Seg Neutrophils # Man Monocytes # (Manual) PT INR D-Dimer POC ABG pH POC ABG pCO2 POC ABG pO2 Sodium Potassium Chloride Carbon Dioxide BUN Creatinine Glucose POC Glucose 203 H 161 H 193 H Lactic Acid Calcium AST ALT C-Reactive Protein Total Protein Albumin Salicylates Miscellaneous Test 12/07/17 12/07/17 12/07/17 11:43 12:14 16:47 WBC RBC Hgb Hct MCV MCH MCHC RDW Plt Count Lymph % (Auto) [place] % (Auto) Eos % (Auto) Lymph # [place] # Eos # Baso # Seg Neutrophils % Seg Neuts % (Manual) Monocytes % (Manual) Nucleated RBC % Seg Neutrophils # Seg Neutrophils # Man Monocytes # (Manual) PT INR D-Dimer POC ABG pH 7.461 H POC ABG pCO2 58.7 H POC ABG pO2 59 L Sodium Potassium Chloride Carbon Dioxide BUN Creatinine Glucose POC Glucose 176 H 162 H Lactic Acid Calcium AST ALT C-Reactive Protein Total Protein Albumin Salicylates Miscellaneous Test 12/07/17 12/08/17 12/08/17 23:49 04:00 04:05 WBC RBC Hgb Hct MCV MCH MCHC RDW Plt Count Lymph % (Auto) [place] % (Auto) Eos % (Auto) Lymph # [place] # Eos # Baso # Seg Neutrophils % Seg Neuts % (Manual) Monocytes % (Manual) Nucleated RBC % Seg Neutrophils # Seg Neutrophils # Man Monocytes # (Manual) PT INR D-Dimer POC ABG pH 7.484 H POC ABG pCO2 56.6 H POC ABG pO2 53 L Sodium 149 H Potassium 2.8 L* Chloride Carbon Dioxide 37 H BUN 31 H Creatinine Glucose 131 H POC Glucose 135 H Lactic Acid Calcium AST ALT C-Reactive Protein Total Protein Albumin Salicylates Miscellaneous Test 12/08/17 12/08/17 12/08/17 04:41 05:08 23:28 WBC 14.4 H RBC Hgb Hct MCV MCH MCHC RDW 15.8 H Plt Count 518 H Lymph % (Auto) 12.3 L [place] % (Auto) 8.0 H Eos % (Auto) Lymph # [place] # 1.2 H Eos # Baso # 0.2 H Seg Neutrophils % 75.8 H Seg Neuts % (Manual) Monocytes % (Manual) Nucleated RBC % Seg Neutrophils # 10.9 H Seg Neutrophils # Man Monocytes # (Manual) PT INR D-Dimer POC ABG pH POC ABG pCO2 POC ABG pO2 Sodium Potassium Chloride Carbon Dioxide BUN Creatinine Glucose POC Glucose 128 H 130 H Lactic Acid Calcium AST ALT C-Reactive Protein Total Protein Albumin Salicylates Miscellaneous Test 12/09/17 12/09/17 03:40 03:40 WBC 14.6 H RBC Hgb Hct MCV MCH MCHC RDW 15.6 H Plt Count 538 H Lymph % (Auto) 11.0 L [place] % (Auto) 8.8 H Eos % (Auto) Lymph # [place] # 1.3 H Eos # Baso # 0.2 H Seg Neutrophils % 77.1 H Seg Neuts % (Manual) Monocytes % (Manual) Nucleated RBC % Seg Neutrophils # 11.2 H Seg Neutrophils # Man Monocytes # (Manual) PT INR D-Dimer POC ABG pH POC ABG pCO2 POC ABG pO2 Sodium 147 H Potassium Chloride Carbon Dioxide 35 H BUN 30 H Creatinine Glucose 141 H POC Glucose Lactic Acid Calcium AST ALT C-Reactive Protein Total Protein Albumin Salicylates Miscellaneous Test Allied health notes reviewed: nursing
[2017-12-09] MEDS: PEPCID PO SCH ×2 (13:21→22:13)
[2017-12-09] MEDS: TYLENOL FEEDTUBE PRN (22:15)
[2017-12-10] MEDS: KEPPRA PO SCH ×4 (00:23→18:27)
[2017-12-10] MEDS: DUONEB *Not for PRN Use IH SCH ×3 (00:52→17:31)
[2017-12-10 04:42] LABS: Basophils # (Auto) 0.2 K/mm3 (0.0-0.1); Basophils % (Auto) 1.2 % (0.0-1.8); Eosinophils # (Auto) 0.2 K/mm3 (0.0-0.4); Eosinophils % (Auto) 0.8 % (0.0-4.3); Hematocrit 43.2 % (30.3-42.9); Hemoglobin 14.1 gm/dl (10.1-14.3); Lymphocytes % (Auto) 10.8 % (13.4-35.0); Mean Corpuscular HGB Conc 33 % (30-34); Mean Corpuscular Hemoglobin 31 pg (28-32); Mean Corpuscular Volume 96 fl (79-97); Monocytes # (Auto) 1.5 K/mm3 (0.0-0.8); Monocytes % (Auto) 8.2 % (0.0-7.3); Platelet Count 583 K/mm3 (140-440); Red Blood Count 4.51 M/mm3 (3.65-5.03); Red Cell Distribution Width 16.2 % (13.2-15.2)
[2017-12-10 04:43] LABS: Calcium 8.6 mg/dL (8.4-10.2)
[2017-12-10] MEDS: HEPARIN SUB-Q SCH ×3 (05:15→22:25)
--- NOTE | 2017-12-10 10:26 | Progress Note ---
Assessment and Plan Assessment and plan: S/p cardiopulmonary arrest. Etiology likely secondary to respiratory arrest. - Anoxic encephalopathy; EEG showed no cortical activity - Neurology following Anoxic brain injury. CT and MRI suggest anoxic brain injury. No pupillary reflex. COPD exacerbation. Continue bronchodilators. Sepsis. ID following and previously on IV antibiotics. Completed zosyn 10 days and tamiflu 5 days Cont. to have fevers but Etiology most likely central fever +/- influenza +/- pneumonia. Hypokalemia. Replete K Possible complex partial seizures with secondary generalization. Continue Keppra and Ativan as needed Acute hypercapneic resp failure. Continue mechanical ventilation per pulmonary TAMARA - Resolved Disposition. Family wishes to continue all efforts for survival. She is still full code. They are interested in a second opinion at [facility]. History Interval history: This unfortunate 56 year old female who was found pulseless, in asystole on and resuscitated, remains with no neurological function at this time. CT confirms severe anoxic damage from 11/26/17. EEG reveals no cortical activity. She is off all sedation. Patient fits criteria for brain , cortical. Brain stem has function only demonstrated by spontaneous respiration off the ventilator. Hospitalist Physical - Constitutional Vitals: Temp Pulse Resp BP Pulse Ox 100.3 F H 99 H 22 160/85 93 12/10/17 08:00 12/10/17 08:52 12/10/17 08:52 12/10/17 08:00 12/10/17 08:00 General appearance: Present: other (on mech vent, ) - EENT Eyes: Present: PERRL, EOM intact ENT: hearing intact, clear oral mucosa, dentition normal - Neck Neck: Present: supple, normal ROM - Respiratory Respiratory effort: normal Respiratory: bilateral: CTA - Cardiovascular Rhythm: regular Heart Sounds: Present: S1 & S2. Absent: gallop, rub - Extremities Extremities: no ischemia, No edema, Full ROM - Abdominal General gastrointestinal: soft, non-tender, non-distended, normal bowel sounds - Integumentary Integumentary: Present: clear, warm, dry - Neurologic Neurologic: CNII-XII intact, moves all extremities Results - Labs CBC & Chem 7: 12/10/17 03:40 12/10/17 03:40 Labs: Laboratory Last Values WBC 18.4 K/mm3 (4.5-11.0) H 12/10/17 03:40 RBC 4.51 M/mm3 (3.65-5.03) 12/10/17 03:40 Hgb 14.1 gm/dl (10.1-14.3) 12/10/17 03:40 Hct 43.2 % (30.3-42.9) H 12/10/17 03:40 MCV 96 fl (79-97) 12/10/17 03:40 MCH 31 pg (28-32) 12/10/17 03:40 MCHC 33 % (30-34) 12/10/17 03:40 RDW 16.2 % (13.2-15.2) H 12/10/17 03:40 Plt Count 583 K/mm3 (140-440) H 12/10/17 03:40 Lymph % (Auto) 10.8 % (13.4-35.0) L 12/10/17 03:40 [place] % (Auto) 8.2 % (0.0-7.3) H 12/10/17 03:40 Eos % (Auto) 0.8 % (0.0-4.3) 12/10/17 03:40 Baso % (Auto) 1.2 % (0.0-1.8) 12/10/17 03:40 Lymph # 2.0 K/mm3 (1.2-5.4) 12/10/17 03:40 [place] # 1.5 K/mm3 (0.0-0.8) H 12/10/17 03:40 Eos # 0.2 K/mm3 (0.0-0.4) 12/10/17 03:40 Baso # 0.2 K/mm3 (0.0-0.1) H 12/10/17 03:40 Add Manual Diff Complete 11/23/17 12:44 Total Counted 100 11/23/17 12:44 Seg Neutrophils % 79.0 % (40.0-70.0) H 12/10/17 03:40 Seg Neuts % (Manual) 71.0 % (40.0-70.0) H 11/23/17 12:44 Band Neutrophils % 3.0 % 11/23/17 12:44 Lymphocytes % (Manual) 18.0 % (13.4-35.0) 11/23/17 12:44 Reactive Lymphs % (Man) 0 % 11/23/17 12:44 Monocytes % (Manual) 8.0 % (0.0-7.3) H 11/23/17 12:44 Eosinophils % (Manual) 0 % (0.0-4.3) 11/23/17 12:44 Basophils % (Manual) 0 % (0.0-1.8) 11/23/17 12:44 Metamyelocytes % 0 % 11/23/17 12:44 Myelocytes % 0 % 11/23/17 12:44 Promyelocytes % 0 % 11/23/17 12:44 Blast Cells % 0 % 11/23/17 12:44 Nucleated RBC % 6.0 % (0.0-0.9) H 11/23/17 12:44 Seg Neutrophils # 14.6 K/mm3 (1.8-7.7) H 12/10/17 03:40 Seg Neutrophils # Man 9.2 K/mm3 (1.8-7.7) H 11/23/17 12:44 Band Neutrophils # 0.4 K/mm3 11/23/17 12:44 Lymphocytes # (Manual) 2.3 K/mm3 (1.2-5.4) 11/23/17 12:44 Abs React Lymphs (Man) 0.0 K/mm3 11/23/17 12:44 Monocytes # (Manual) 1.0 K/mm3 (0.0-0.8) H 11/23/17 12:44 Eosinophils # (Manual) 0.0 K/mm3 (0.0-0.4) 11/23/17 12:44 Basophils # (Manual) 0.0 K/mm3 (0.0-0.1) 11/23/17 12:44 Metamyelocytes # 0.0 K/mm3 11/23/17 12:44 Myelocytes # 0.0 K/mm3 11/23/17 12:44 Promyelocytes # 0.0 K/mm3 11/23/17 12:44 Blast Cells # 0.0 K/mm3 11/23/17 12:44 WBC Morphology Not Reportable 11/23/17 12:44 Hypersegmented Neuts Not Reportable 11/23/17 12:44 Hyposegmented Neuts Not Reportable 11/23/17 12:44 Hypogranular Neuts Not Reportable 11/23/17 12:44 Smudge Cells Not Reportable 11/23/17 12:44 Toxic Granulation Not Reportable 11/23/17 12:44 Toxic Vacuolation Not Reportable 11/23/17 12:44 Dohle Bodies Not Reportable 11/23/17 12:44 Pelger-Huet Anomaly Not Reportable 11/23/17 12:44 Erika Rods Not Reportable 11/23/17 12:44 Platelet Estimate Consistent w auto 11/23/17 12:44 Clumped Platelets Not Reportable 11/23/17 12:44 Plt Clumps, EDTA Not Reportable 11/23/17 12:44 Large Platelets Not Reportable 11/23/17 12:44 Giant Platelets Not Reportable 11/23/17 12:44 Platelet Satelliting Not Reportable 11/23/17 12:44 Plt Morphology Comment Not Reportable 11/23/17 12:44 RBC Morphology Not Reportable 11/23/17 12:44 Dimorphic RBCs Not Reportable 11/23/17 12:44 Polychromasia Rare 11/23/17 12:44 Hypochromasia Not Reportable 11/23/17 12:44 Poikilocytosis Not Reportable 11/23/17 12:44 Anisocytosis 1+ 11/23/17 12:44 Microcytosis Not Reportable 11/23/17 12:44 Macrocytosis 1+ 11/23/17 12:44 Spherocytes Not Reportable 11/23/17 12:44 Pappenheimer Bodies Not Reportable 11/23/17 12:44 Sickle Cells Not Reportable 11/23/17 12:44 Target Cells Not Reportable 11/23/17 12:44 Tear Drop Cells Not Reportable 11/23/17 12:44 Ovalocytes Not Reportable 11/23/17 12:44 Helmet Cells Not Reportable 11/23/17 12:44 [place] Bodies Not Reportable 11/23/17 12:44 [place] Rings Not Reportable 11/23/17 12:44 Morrow Cells Not Reportable 11/23/17 12:44 Bite Cells Not Reportable 11/23/17 12:44 Crenated Cell Not Reportable 11/23/17 12:44 Elliptocytes Not Reportable 11/23/17 12:44 Acanthocytes (Spur) Not Reportable 11/23/17 12:44 Rouleaux Not Reportable 11/23/17 12:44 Hemoglobin C Crystals Not Reportable 11/23/17 12:44 Schistocytes Not Reportable 11/23/17 12:44 Malaria parasites Not Reportable 11/23/17 12:44 Brett Bodies Not Reportable 11/23/17 12:44 Hem Pathologist Commnt No 11/23/17 12:44 PT 15.3 Sec. (12.2-14.9) H 11/23/17 12:44 INR 1.15 (0.87-1.13) H 11/23/17 12:44 APTT 33.9 Sec. (24.2-36.6) 11/23/17 12:44 D-Dimer 1977.37 ng/mlDDU (0-234) H 11/24/17 14:44 POC ABG pH 7.484 (7.35-7.45) H 12/08/17 04:05 POC ABG pCO2 56.6 (35-45) H 12/08/17 04:05 POC ABG pO2 53 (80-105) L 12/08/17 04:05 POC ABG HCO3 42.5 12/08/17 04:05 POC ABG Total CO2 44 12/08/17 04:05 POC ABG O2 Sat 88 12/08/17 04:05 POC ABG Base Excess 19 12/08/17 04:05 FiO2 50 % 12/08/17 04:05 Sodium 149 mmol/L (137-145) H 12/10/17 03:40 Potassium 3.7 mmol/L (3.6-5.0) 12/10/17 03:40 Chloride 101.5 mmol/L (98-107) 12/10/17 03:40 Carbon Dioxide 32 mmol/L (22-30) H 12/10/17 03:40 Anion Gap 19 mmol/L 12/10/17 03:40 BUN 29 mg/dL (7-17) H 12/10/17 03:40 Creatinine 1.2 mg/dL (0.7-1.2) 12/10/17 03:40 Estimated GFR 46 ml/min 12/10/17 03:40 BUN/Creatinine Ratio 24 % 12/10/17 03:40 Glucose 167 mg/dL (65-100) H 12/10/17 03:40 POC Glucose 182 (70-105) H 12/10/17 05:41 Lactic Acid 2.00 mmol/L (0.7-2.0) 11/25/17 10:25 Calcium 8.6 mg/dL (8.4-10.2) 12/10/17 03:40 Magnesium 1.90 mg/dL (1.7-2.3) 11/28/17 03:17 Total Bilirubin 0.60 mg/dL (0.1-1.2) 11/25/17 03:02 Direct Bilirubin 0.2 mg/dL (0-0.2) 11/25/17 03:02 Indirect Bilirubin 0.4 mg/dL 11/25/17 03:02 AST 300 units/L (5-40) H 11/25/17 03:02 ALT 561 units/L (7-56) H 11/25/17 03:02 Alkaline Phosphatase 54 units/L (35-129) 11/25/17 03:02 Troponin T < 0.010 ng/mL (0.00-0.029) 11/23/17 12:44 C-Reactive Protein 13.70 mg/dL (0.00-1.30) H 11/27/17 16:18 Total Protein 4.5 g/dL (6.3-8.2) L 11/25/17 03:02 Albumin 2.4 g/dL (3.9-5) L 11/25/17 03:02 Albumin/Globulin Ratio 1.1 % 11/25/17 03:02 Urine Color Yellow (Yellow) 11/23/17 13:39 Urine Turbidity Clear (Clear) 11/23/17 13:39 Urine pH 5.0 (5.0-7.0) 11/23/17 13:39 Ur Specific [place] 1.020 (1.003-1.030) 11/23/17 13:39 Urine Protein 30 mg/dl mg/dL (Negative) 11/23/17 13:39 Urine Glucose (UA) Neg mg/dL (Negative) 11/23/17 13:39 Urine Ketones Neg mg/dL (Negative) 11/23/17 13:39 Urine Blood Neg (Negative) 11/23/17 13:39 Urine Nitrite Neg (Negative) 11/23/17 13:39 Urine Bilirubin Neg (Negative) 11/23/17 13:39 Urine Urobilinogen 2.0 mg/dL (<2.0) 11/23/17 13:39 Ur Leukocyte Esterase Neg (Negative) 11/23/17 13:39 Urine WBC (Auto) 5.0 /HPF (0.0-6.0) 11/23/17 13:39 Urine RBC (Auto) 1.0 /HPF (0.0-6.0) 11/23/17 13:39 U Epithel Cells (Auto) 1.0 /HPF (0-13.0) 11/23/17 13:39 Urine Bacteria (Auto) 1+ /HPF (Negative) 11/23/17 13:39 Hyaline Casts 11 /LPF 11/23/17 13:39 Urine Mucus 2+ /HPF 11/23/17 13:39 Salicylates < 0.3 mg/dL (2.8-20.0) L 11/23/17 15:54 Urine Opiates Screen Presumptive positive 11/23/17 13:39 Urine Methadone Screen Presumptive negative 11/23/17 13:39 Acetaminophen < 15.0 ug/mL (10.0-30.0) 11/23/17 15:54 Ur Barbiturates Screen Presumptive negative 11/23/17 13:39 Levetiracetam 30.0 mcg/mL 11/25/17 17:30 Ur Phencyclidine Scrn Presumptive negative 11/23/17 13:39 Ur Amphetamines Screen Presumptive negative 11/23/17 13:39 U Benzodiazepines Scrn Presumptive positive 11/23/17 13:39 Urine Cocaine Screen Presumptive negative 11/23/17 13:39 U Marijuana (THC) Screen Presumptive negative 11/23/17 13:39 Drugs of Abuse Note Disclamer 11/23/17 13:39 Miscellaneous Test Flexitest 1 H 11/28/17 09:23
[2017-12-10] MEDS: PEPCID PO SCH ×2 (10:31→22:25)
[2017-12-10] MEDS: TYLENOL FEEDTUBE PRN ×3 (11:54→22:27)
--- NOTE | 2017-12-10 16:18 | Progress Note ---
Assessment and Plan Acute hypoxemic respiratory failure, on mechanical ventilatory support. Status post cardiac arrest. Likely aspiration pneumonia. Acute encephalopathy with myoclonic jerks at this point, but with evidence of brainstem function. Acute exacerbation of chronic obstructive pulmonary disease. Tobacco use disorder. Obesity. Hypertension. History of alcohol abuse Hypernatremia - continue full MVS acutely - continue to wean oxygen for sats > 90% - stopped versed and watching for tremors/seizures - Encephalopathy w/up ongoing - free water - stopped benadryl for angioedema type tongue swelling (swelling better) - continue GI prophylaxis - continue aspiration precautions / address VAP bundle daily - continue bronchodilators and pulmonary hygiene per RT - continue reglan - continue enteral nutrition - continue GI & VTE prophylaxis - continue empiric AB's and follow C&S - continue other care per attending/ other consultants ....remains critically ill on MVS and at high risk for further deterioration including ..30' CCT Subjective Date of service: 12/10/17 Principal diagnosis: Acute Hypoxemic Resp Failure; S/P Cardiac Arrest; Acute Encephalopathy Interval history: Patient is seen today for: Acute Hypoxemic Resp Failure; S/P Cardiac Arrest; Acute Encephalopathy Seen and examined at bedside; 24hour events reviewed; nursing and respiratory care staff consulted; no adverse overnight events reported to me; reamins on MVS ; AMS persistent; remains hypoxemic; still with spontaneous respiratory effort; no emesis or overt aspiration and no seizures Objective Vital Signs - 12hr 12/10/17 12/10/17 12/10/17 04:49 05:00 05:07 Temperature 99.8 F H Pulse Rate 99 H 100 H Pulse Rate [ Anterior Bilateral Throughout] Pulse Rate [ From Monitor] Respiratory 21 Rate Respiratory Rate [Anterior Bilateral Throughout] Blood Pressure 157/79 149/84 O2 Sat by Pulse 94 94 Oximetry 12/10/17 12/10/17 12/10/17 06:00 07:00 07:52 Temperature Pulse Rate 100 H 102 H 105 H Pulse Rate [ 105 H Anterior Bilateral Throughout] Pulse Rate [ From Monitor] Respiratory 20 22 Rate Respiratory 26 H Rate [Anterior Bilateral Throughout] Blood Pressure 156/80 160/85 160/85 O2 Sat by Pulse 93 93 93 Oximetry 12/10/17 12/10/17 12/10/17 08:00 08:52 09:00 Temperature 100.3 F H Pulse Rate 105 H 100 H Pulse Rate [ 99 H Anterior Bilateral Throughout] Pulse Rate [ 104 H From Monitor] Respiratory 20 18 Rate Respiratory 22 Rate [Anterior Bilateral Throughout] Blood Pressure 160/85 105/66 O2 Sat by Pulse 90 92 Oximetry 12/10/17 12/10/17 12/10/17 10:00 12:00 12:49 Temperature 102.7 F H Pulse Rate 100 H 105 H Pulse Rate [ Anterior Bilateral Throughout] Pulse Rate [ 104 H From Monitor] Respiratory 18 Rate Respiratory Rate [Anterior Bilateral Throughout] Blood Pressure 153/75 132/63 O2 Sat by Pulse 96 93 Oximetry Constitutional: appears uncomfortable, other (obtunded) Eyes: non-icteric ENT: oropharynx moist Neck: supple, no lymphadenopathy, no JVD, other (no thyromegaly) Effort: mildly labored Ascultation: Bilateral: diminished breath sounds, rhonchi Percussion: Bilateral: not dull Cardiovascular: regular rate and rhythm, other (no rubs or murmurs) Gastrointestinal: hypoactive bowel sounds, soft, non-tender, non-distended, other (no palapble HSM) Integumentary: normal Extremities: no cyanosis, pink and warm, pulses normal, edema Neurologic: pupils equal and round, unable to assess Psychiatric: other (unable to assess) CBC and BMP: 12/11/17 03:58 12/11/17 03:58 ABG, PT/INR, D-dimer: ABG POC ABG pH 7.484 (7.35-7.45) H 12/08/17 04:05 POC ABG pCO2 56.6 (35-45) H 12/08/17 04:05 POC ABG pO2 53 (80-105) L 12/08/17 04:05 POC ABG HCO3 42.5 12/08/17 04:05 POC ABG Total CO2 44 12/08/17 04:05 POC ABG O2 Sat 88 12/08/17 04:05 PT/INR, D-dimer PT 15.3 Sec. (12.2-14.9) H 11/23/17 12:44 INR 1.15 (0.87-1.13) H 11/23/17 12:44 D-Dimer 1977.37 ng/mlDDU (0-234) H 11/24/17 14:44 Abnormal lab findings: Abnormal Labs 11/23/17 11/23/17 11/23/17 12:44 12:44 12:44 WBC 13.0 H RBC Hgb Hct 46.1 H MCV 112 H MCH 33 H MCHC 29 L RDW 18.5 H Plt Count Lymph % (Auto) [place] % (Auto) Eos % (Auto) Lymph # [place] # Eos # Baso # Seg Neutrophils % Seg Neuts % (Manual) 71.0 H Monocytes % (Manual) 8.0 H Nucleated RBC % 6.0 H Seg Neutrophils # Seg Neutrophils # Man 9.2 H Monocytes # (Manual) 1.0 H PT 15.3 H INR 1.15 H D-Dimer POC ABG pH POC ABG pCO2 POC ABG pO2 Sodium Potassium 5.4 H Chloride 85.2 L Carbon Dioxide BUN 19 H Creatinine 1.3 H Glucose 175 H POC Glucose Lactic Acid Calcium AST 310 H ALT 262 H C-Reactive Protein Total Protein 5.7 L Albumin 2.9 L Salicylates Miscellaneous Test 11/23/17 11/23/17 11/23/17 12:44 13:23 15:54 WBC RBC Hgb Hct MCV MCH MCHC RDW Plt Count Lymph % (Auto) [place] % (Auto) Eos % (Auto) Lymph # [place] # Eos # Baso # Seg Neutrophils % Seg Neuts % (Manual) Monocytes % (Manual) Nucleated RBC % Seg Neutrophils # Seg Neutrophils # Man Monocytes # (Manual) PT INR D-Dimer POC ABG pH 7.035 L POC ABG pCO2 99.1 H POC ABG pO2 343 H Sodium Potassium Chloride Carbon Dioxide BUN Creatinine Glucose POC Glucose Lactic Acid 16.10 H* Calcium AST ALT C-Reactive Protein Total Protein Albumin Salicylates < 0.3 L Miscellaneous Test 11/23/17 11/24/17 11/24/17 16:42 04:03 04:03 WBC 16.8 H RBC Hgb 15.7 H Hct 48.9 H MCV 101 H MCH MCHC RDW 16.5 H Plt Count Lymph % (Auto) 5.2 L [place] % (Auto) Eos % (Auto) Lymph # 0.9 L [place] # 0.9 H Eos # Baso # Seg Neutrophils % 89.1 H Seg Neuts % (Manual) Monocytes % (Manual) Nucleated RBC % Seg Neutrophils # 14.9 H Seg Neutrophils # Man Monocytes # (Manual) PT INR D-Dimer POC ABG pH POC ABG pCO2 POC ABG pO2 55 L Sodium Potassium Chloride 96.0 L Carbon Dioxide 33 H D BUN 28 H Creatinine 1.5 H Glucose 108 H POC Glucose Lactic Acid Calcium 7.7 L AST 1091 H ALT 986 H C-Reactive Protein Total Protein 5.0 L Albumin 2.8 L Salicylates Miscellaneous Test 11/24/17 11/24/17 11/24/17 05:55 13:29 13:29 WBC RBC Hgb Hct MCV MCH MCHC RDW Plt Count Lymph % (Auto) [place] % (Auto) Eos % (Auto) Lymph # [place] # Eos # Baso # Seg Neutrophils % Seg Neuts % (Manual) Monocytes % (Manual) Nucleated RBC % Seg Neutrophils # Seg Neutrophils # Man Monocytes # (Manual) PT INR D-Dimer POC ABG pH 7.469 H POC ABG pCO2 52.3 H POC ABG pO2 69 L Sodium Potassium Chloride Carbon Dioxide BUN Creatinine Glucose POC Glucose Lactic Acid 3.20 H* Calcium AST ALT C-Reactive Protein 9.20 H Total Protein Albumin Salicylates Miscellaneous Test 11/24/17 11/24/17 11/25/17 14:44 20:55 01:55 WBC RBC Hgb Hct MCV MCH MCHC RDW Plt Count Lymph % (Auto) [place] % (Auto) Eos % (Auto) Lymph # [place] # Eos # Baso # Seg Neutrophils % Seg Neuts % (Manual) Monocytes % (Manual) Nucleated RBC % Seg Neutrophils # Seg Neutrophils # Man Monocytes # (Manual) PT INR D-Dimer 1977.37 H POC ABG pH 7.471 H POC ABG pCO2 56.2 H POC ABG pO2 Sodium Potassium Chloride Carbon Dioxide BUN Creatinine Glucose POC Glucose Lactic Acid 3.00 H* Calcium AST ALT C-Reactive Protein Total Protein Albumin Salicylates Miscellaneous Test 11/25/17 11/25/17 11/25/17 03:02 03:02 03:02 WBC 16.0 H RBC Hgb Hct MCV 99 H MCH MCHC RDW 16.0 H Plt Count Lymph % (Auto) 11.6 L [place] % (Auto) Eos % (Auto) Lymph # [place] # 1.0 H Eos # Baso # Seg Neutrophils % 81.8 H Seg Neuts % (Manual) Monocytes % (Manual) Nucleated RBC % Seg Neutrophils # 13.1 H Seg Neutrophils # Man Monocytes # (Manual) PT INR D-Dimer POC ABG pH POC ABG pCO2 POC ABG pO2 Sodium 148 H Potassium Chloride Carbon Dioxide 35 H BUN 30 H Creatinine 1.9 H Glucose 106 H POC Glucose Lactic Acid 2.90 H* Calcium 7.0 L AST ALT C-Reactive Protein Total Protein Albumin Salicylates Miscellaneous Test 11/25/17 11/25/17 11/25/17 03:02 03:35 07:15 WBC RBC Hgb Hct MCV MCH MCHC RDW Plt Count Lymph % (Auto) [place] % (Auto) Eos % (Auto) Lymph # [place] # Eos # Baso # Seg Neutrophils % Seg Neuts % (Manual) Monocytes % (Manual) Nucleated RBC % Seg Neutrophils # Seg Neutrophils # Man Monocytes # (Manual) PT INR D-Dimer POC ABG pH 7.494 H POC ABG pCO2 48.1 H POC ABG pO2 Sodium Potassium Chloride Carbon Dioxide BUN Creatinine Glucose POC Glucose Lactic Acid 2.30 H* Calcium AST 300 H ALT 561 H C-Reactive Protein Total Protein 4.5 L Albumin 2.4 L Salicylates Miscellaneous Test 11/26/17 11/26/17 11/26/17 03:26 03:26 03:52 WBC 12.7 H RBC Hgb 14.9 H Hct 45.9 H MCV 98 H MCH MCHC RDW 16.3 H Plt Count 137 L Lymph % (Auto) 10.0 L [place] % (Auto) Eos % (Auto) Lymph # [place] # Eos # Baso # Seg Neutrophils % 82.7 H Seg Neuts % (Manual) Monocytes % (Manual) Nucleated RBC % Seg Neutrophils # 10.5 H Seg Neutrophils # Man Monocytes # (Manual) PT INR D-Dimer POC ABG pH 7.475 H POC ABG pCO2 POC ABG pO2 71 L Sodium 150 H Potassium 3.3 L Chloride Carbon Dioxide BUN 22 H Creatinine 1.7 H Glucose 107 H POC Glucose Lactic Acid Calcium 7.5 L AST ALT C-Reactive Protein Total Protein Albumin Salicylates Miscellaneous Test 11/26/17 11/26/17 11/26/17 11:49 17:53 23:56 WBC RBC Hgb Hct MCV MCH MCHC RDW Plt Count Lymph % (Auto) [place] % (Auto) Eos % (Auto) Lymph # [place] # Eos # Baso # Seg Neutrophils % Seg Neuts % (Manual) Monocytes % (Manual) Nucleated RBC % Seg Neutrophils # Seg Neutrophils # Man Monocytes # (Manual) PT INR D-Dimer POC ABG pH POC ABG pCO2 POC ABG pO2 Sodium Potassium Chloride Carbon Dioxide BUN Creatinine Glucose POC Glucose 109 H 168 H 145 H Lactic Acid Calcium AST ALT C-Reactive Protein Total Protein Albumin Salicylates Miscellaneous Test 11/27/17 11/27/17 11/27/17 04:22 04:22 04:53 WBC 11.7 H RBC Hgb 15.7 H Hct 49.8 H MCV 100 H MCH MCHC RDW 16.4 H Plt Count 105 L Lymph % (Auto) 7.6 L [place] % (Auto) 8.7 H Eos % (Auto) Lymph # 0.9 L [place] # 1.0 H Eos # Baso # Seg Neutrophils % 83.2 H Seg Neuts % (Manual) Monocytes % (Manual) Nucleated RBC % Seg Neutrophils # 9.7 H Seg Neutrophils # Man Monocytes # (Manual) PT INR D-Dimer POC ABG pH POC ABG pCO2 53.1 H POC ABG pO2 70 L Sodium 155 H Potassium Chloride 113.1 H Carbon Dioxide BUN Creatinine 1.5 H Glucose 128 H POC Glucose Lactic Acid Calcium 7.4 L AST ALT C-Reactive Protein Total Protein Albumin Salicylates Miscellaneous Test 11/27/17 11/27/17 11/27/17 05:34 11:27 16:18 WBC RBC Hgb Hct MCV MCH MCHC RDW Plt Count Lymph % (Auto) [place] % (Auto) Eos % (Auto) Lymph # [place] # Eos # Baso # Seg Neutrophils % Seg Neuts % (Manual) Monocytes % (Manual) Nucleated RBC % Seg Neutrophils # Seg Neutrophils # Man Monocytes # (Manual) PT INR D-Dimer POC ABG pH POC ABG pCO2 POC ABG pO2 Sodium Potassium Chloride Carbon Dioxide BUN Creatinine Glucose POC Glucose 120 H 129 H Lactic Acid Calcium AST ALT C-Reactive Protein 13.70 H Total Protein Albumin Salicylates Miscellaneous Test 11/27/17 11/27/17 11/28/17 17:19 23:56 03:17 WBC 14.5 H RBC Hgb 15.2 H Hct 48.3 H MCV 99 H MCH MCHC RDW 16.5 H Plt Count 108 L Lymph % (Auto) 9.7 L [place] % (Auto) Eos % (Auto) Lymph # [place] # 1.0 H Eos # Baso # Seg Neutrophils % 81.0 H Seg Neuts % (Manual) Monocytes % (Manual) Nucleated RBC % Seg Neutrophils # 11.8 H Seg Neutrophils # Man Monocytes # (Manual) PT INR D-Dimer POC ABG pH POC ABG pCO2 POC ABG pO2 Sodium Potassium Chloride Carbon Dioxide BUN Creatinine Glucose POC Glucose 138 H 125 H Lactic Acid Calcium AST ALT C-Reactive Protein Total Protein Albumin Salicylates Miscellaneous Test 11/28/17 11/28/17 11/28/17 03:17 05:34 06:46 WBC RBC Hgb Hct MCV MCH MCHC RDW Plt Count Lymph % (Auto) [place] % (Auto) Eos % (Auto) Lymph # [place] # Eos # Baso # Seg Neutrophils % Seg Neuts % (Manual) Monocytes % (Manual) Nucleated RBC % Seg Neutrophils # Seg Neutrophils # Man Monocytes # (Manual) PT INR D-Dimer POC ABG pH 7.324 L POC ABG pCO2 63.4 H POC ABG pO2 65 L Sodium 150 H Potassium 3.4 L Chloride 107.9 H Carbon Dioxide 31 H BUN 19 H Creatinine 1.3 H Glucose 126 H POC Glucose 132 H Lactic Acid Calcium 7.7 L AST ALT C-Reactive Protein Total Protein Albumin Salicylates Miscellaneous Test 11/28/17 11/28/17 11/28/17 09:23 12:17 17:20 WBC RBC Hgb Hct MCV MCH MCHC RDW Plt Count Lymph % (Auto) [place] % (Auto) Eos % (Auto) Lymph # [place] # Eos # Baso # Seg Neutrophils % Seg Neuts % (Manual) Monocytes % (Manual) Nucleated RBC % Seg Neutrophils # Seg Neutrophils # Man Monocytes # (Manual) PT INR D-Dimer POC ABG pH POC ABG pCO2 POC ABG pO2 Sodium Potassium Chloride Carbon Dioxide BUN Creatinine Glucose POC Glucose 142 H 136 H Lactic Acid Calcium AST ALT C-Reactive Protein Total Protein Albumin Salicylates Miscellaneous Test Flexitest 1 H 11/29/17 11/29/17 11/29/17 00:12 04:36 04:47 WBC 14.1 H RBC 5.32 H Hgb 16.4 H Hct 51.2 H MCV MCH MCHC RDW 15.8 H Plt Count 77 L Lymph % (Auto) 7.6 L [place] % (Auto) Eos % (Auto) Lymph # 1.1 L [place] # 0.9 H Eos # 0.5 H Baso # Seg Neutrophils % 81.5 H Seg Neuts % (Manual) Monocytes % (Manual) Nucleated RBC % Seg Neutrophils # 11.5 H Seg Neutrophils # Man Monocytes # (Manual) PT INR D-Dimer POC ABG pH POC ABG pCO2 POC ABG pO2 61 L Sodium Potassium Chloride Carbon Dioxide BUN Creatinine Glucose POC Glucose 119 H Lactic Acid Calcium AST ALT C-Reactive Protein Total Protein Albumin Salicylates Miscellaneous Test 11/29/17 11/29/17 11/29/17 04:47 05:29 11:48 WBC RBC Hgb Hct MCV MCH MCHC RDW Plt Count Lymph % (Auto) [place] % (Auto) Eos % (Auto) Lymph # [place] # Eos # Baso # Seg Neutrophils % Seg Neuts % (Manual) Monocytes % (Manual) Nucleated RBC % Seg Neutrophils # Seg Neutrophils # Man Monocytes # (Manual) PT INR D-Dimer POC ABG pH POC ABG pCO2 POC ABG pO2 Sodium Potassium Chloride Carbon Dioxide BUN 18 H Creatinine Glucose 119 H POC Glucose 128 H 128 H Lactic Acid Calcium 8.2 L AST ALT C-Reactive Protein Total Protein Albumin Salicylates Miscellaneous Test 11/29/17 11/29/17 11/30/17 17:32 17:39 03:48 WBC 13.5 H RBC Hgb 15.4 H Hct 47.2 H MCV MCH MCHC RDW 16.3 H Plt Count Lymph % (Auto) 10.5 L [place] % (Auto) 7.7 H Eos % (Auto) Lymph # [place] # 1.0 H Eos # 0.5 H Baso # Seg Neutrophils % 76.8 H Seg Neuts % (Manual) Monocytes % (Manual) Nucleated RBC % Seg Neutrophils # 10.4 H Seg Neutrophils # Man Monocytes # (Manual) PT INR D-Dimer POC ABG pH POC ABG pCO2 51.6 H POC ABG pO2 345 H Sodium Potassium Chloride Carbon Dioxide BUN Creatinine Glucose POC Glucose 124 H Lactic Acid Calcium AST ALT C-Reactive Protein Total Protein Albumin Salicylates Miscellaneous Test 11/30/17 11/30/17 11/30/17 03:48 03:52 23:37 WBC RBC Hgb Hct MCV MCH MCHC RDW Plt Count Lymph % (Auto) [place] % (Auto) Eos % (Auto) Lymph # [place] # Eos # Baso # Seg Neutrophils % Seg Neuts % (Manual) Monocytes % (Manual) Nucleated RBC % Seg Neutrophils # Seg Neutrophils # Man Monocytes # (Manual) PT INR D-Dimer POC ABG pH 7.503 H POC ABG pCO2 POC ABG pO2 65 L Sodium Potassium Chloride Carbon Dioxide BUN Creatinine Glucose 121 H POC Glucose 140 H Lactic Acid Calcium 7.6 L AST ALT C-Reactive Protein Total Protein Albumin Salicylates Miscellaneous Test 12/01/17 12/01/17 12/01/17 03:17 05:30 12:37 WBC RBC Hgb Hct MCV MCH MCHC RDW Plt Count Lymph % (Auto) [place] % (Auto) Eos % (Auto) Lymph # [place] # Eos # Baso # Seg Neutrophils % Seg Neuts % (Manual) Monocytes % (Manual) Nucleated RBC % Seg Neutrophils # Seg Neutrophils # Man Monocytes # (Manual) PT INR D-Dimer POC ABG pH POC ABG pCO2 52.7 H POC ABG pO2 64 L Sodium Potassium Chloride Carbon Dioxide BUN Creatinine Glucose POC Glucose 171 H 175 H Lactic Acid Calcium AST ALT C-Reactive Protein Total Protein Albumin Salicylates Miscellaneous Test 12/01/17 12/02/17 12/02/17 17:41 00:01 03:17 WBC RBC Hgb Hct MCV MCH MCHC RDW Plt Count Lymph % (Auto) [place] % (Auto) Eos % (Auto) Lymph # [place] # Eos # Baso # Seg Neutrophils % Seg Neuts % (Manual) Monocytes % (Manual) Nucleated RBC % Seg Neutrophils # Seg Neutrophils # Man Monocytes # (Manual) PT INR D-Dimer POC ABG pH POC ABG pCO2 51.5 H POC ABG pO2 67 L Sodium Potassium Chloride Carbon Dioxide BUN Creatinine Glucose POC Glucose 165 H 184 H Lactic Acid Calcium AST ALT C-Reactive Protein Total Protein Albumin Salicylates Miscellaneous Test 12/02/17 12/02/17 12/02/17 05:54 11:44 18:04 WBC RBC Hgb Hct MCV MCH MCHC RDW Plt Count Lymph % (Auto) [place] % (Auto) Eos % (Auto) Lymph # [place] # Eos # Baso # Seg Neutrophils % Seg Neuts % (Manual) Monocytes % (Manual) Nucleated RBC % Seg Neutrophils # Seg Neutrophils # Man Monocytes # (Manual) PT INR D-Dimer POC ABG pH POC ABG pCO2 POC ABG pO2 Sodium Potassium Chloride Carbon Dioxide BUN Creatinine Glucose POC Glucose 208 H 175 H 146 H Lactic Acid Calcium AST ALT C-Reactive Protein Total Protein Albumin Salicylates Miscellaneous Test 12/03/17 12/03/17 12/03/17 00:16 05:59 12:09 WBC RBC Hgb Hct MCV MCH MCHC RDW Plt Count Lymph % (Auto) [place] % (Auto) Eos % (Auto) Lymph # [place] # Eos # Baso # Seg Neutrophils % Seg Neuts % (Manual) Monocytes % (Manual) Nucleated RBC % Seg Neutrophils # Seg Neutrophils # Man Monocytes # (Manual) PT INR D-Dimer POC ABG pH POC ABG pCO2 53.1 H POC ABG pO2 60 L Sodium Potassium Chloride Carbon Dioxide BUN Creatinine Glucose POC Glucose 135 H 137 H Lactic Acid Calcium AST ALT C-Reactive Protein Total Protein Albumin Salicylates Miscellaneous Test 12/03/17 12/03/17 12/03/17 17:19 20:02 23:30 WBC 13.3 H RBC Hgb 15.1 H Hct 47.0 H MCV MCH MCHC RDW 15.8 H Plt Count Lymph % (Auto) 11.6 L [place] % (Auto) Eos % (Auto) 4.5 H Lymph # [place] # Eos # 0.6 H Baso # Seg Neutrophils % 76.6 H Seg Neuts % (Manual) Monocytes % (Manual) Nucleated RBC % Seg Neutrophils # 10.2 H Seg Neutrophils # Man Monocytes # (Manual) PT INR D-Dimer POC ABG pH POC ABG pCO2 POC ABG pO2 Sodium Potassium Chloride Carbon Dioxide BUN Creatinine Glucose POC Glucose 134 H 118 H Lactic Acid Calcium AST ALT C-Reactive Protein Total Protein Albumin Salicylates Miscellaneous Test 12/04/17 12/04/17 12/04/17 06:07 11:54 17:20 WBC RBC Hgb Hct MCV MCH MCHC RDW Plt Count Lymph % (Auto) [place] % (Auto) Eos % (Auto) Lymph # [place] # Eos # Baso # Seg Neutrophils % Seg Neuts % (Manual) Monocytes % (Manual) Nucleated RBC % Seg Neutrophils # Seg Neutrophils # Man Monocytes # (Manual) PT INR D-Dimer POC ABG pH POC ABG pCO2 POC ABG pO2 Sodium Potassium Chloride Carbon Dioxide BUN Creatinine Glucose POC Glucose 163 H 154 H 143 H Lactic Acid Calcium AST ALT C-Reactive Protein Total Protein Albumin Salicylates Miscellaneous Test 12/04/17 12/05/17 12/05/17 23:51 06:14 11:36 WBC RBC Hgb Hct MCV MCH MCHC RDW Plt Count Lymph % (Auto) [place] % (Auto) Eos % (Auto) Lymph # [place] # Eos # Baso # Seg Neutrophils % Seg Neuts % (Manual) Monocytes % (Manual) Nucleated RBC % Seg Neutrophils # Seg Neutrophils # Man Monocytes # (Manual) PT INR D-Dimer POC ABG pH POC ABG pCO2 POC ABG pO2 Sodium Potassium Chloride Carbon Dioxide BUN Creatinine Glucose POC Glucose 139 H 158 H 173 H Lactic Acid Calcium AST ALT C-Reactive Protein Total Protein Albumin Salicylates Miscellaneous Test 12/05/17 12/06/17 12/06/17 17:45 00:12 06:09 WBC RBC Hgb Hct MCV MCH MCHC RDW Plt Count Lymph % (Auto) [place] % (Auto) Eos % (Auto) Lymph # [place] # Eos # Baso # Seg Neutrophils % Seg Neuts % (Manual) Monocytes % (Manual) Nucleated RBC % Seg Neutrophils # Seg Neutrophils # Man Monocytes # (Manual) PT INR D-Dimer POC ABG pH POC ABG pCO2 POC ABG pO2 Sodium Potassium Chloride Carbon Dioxide BUN Creatinine Glucose POC Glucose 148 H 148 H 205 H Lactic Acid Calcium AST ALT C-Reactive Protein Total Protein Albumin Salicylates Miscellaneous Test 12/06/17 12/06/17 12/07/17 11:58 23:36 05:34 WBC RBC Hgb Hct MCV MCH MCHC RDW Plt Count Lymph % (Auto) [place] % (Auto) Eos % (Auto) Lymph # [place] # Eos # Baso # Seg Neutrophils % Seg Neuts % (Manual) Monocytes % (Manual) Nucleated RBC % Seg Neutrophils # Seg Neutrophils # Man Monocytes # (Manual) PT INR D-Dimer POC ABG pH POC ABG pCO2 POC ABG pO2 Sodium Potassium Chloride Carbon Dioxide BUN Creatinine Glucose POC Glucose 203 H 161 H 193 H Lactic Acid Calcium AST ALT C-Reactive Protein Total Protein Albumin Salicylates Miscellaneous Test 12/07/17 12/07/17 12/07/17 11:43 12:14 16:47 WBC RBC Hgb Hct MCV MCH MCHC RDW Plt Count Lymph % (Auto) [place] % (Auto) Eos % (Auto) Lymph # [place] # Eos # Baso # Seg Neutrophils % Seg Neuts % (Manual) Monocytes % (Manual) Nucleated RBC % Seg Neutrophils # Seg Neutrophils # Man Monocytes # (Manual) PT INR D-Dimer POC ABG pH 7.461 H POC ABG pCO2 58.7 H POC ABG pO2 59 L Sodium Potassium Chloride Carbon Dioxide BUN Creatinine Glucose POC Glucose 176 H 162 H Lactic Acid Calcium AST ALT C-Reactive Protein Total Protein Albumin Salicylates Miscellaneous Test 12/07/17 12/08/17 12/08/17 23:49 04:00 04:05 WBC RBC Hgb Hct MCV MCH MCHC RDW Plt Count Lymph % (Auto) [place] % (Auto) Eos % (Auto) Lymph # [place] # Eos # Baso # Seg Neutrophils % Seg Neuts % (Manual) Monocytes % (Manual) Nucleated RBC % Seg Neutrophils # Seg Neutrophils # Man Monocytes # (Manual) PT INR D-Dimer POC ABG pH 7.484 H POC ABG pCO2 56.6 H POC ABG pO2 53 L Sodium 149 H Potassium 2.8 L* Chloride Carbon Dioxide 37 H BUN 31 H Creatinine Glucose 131 H POC Glucose 135 H Lactic Acid Calcium AST ALT C-Reactive Protein Total Protein Albumin Salicylates Miscellaneous Test 12/08/17 12/08/17 12/08/17 04:41 05:08 23:28 WBC 14.4 H RBC Hgb Hct MCV MCH MCHC RDW 15.8 H Plt Count 518 H Lymph % (Auto) 12.3 L [place] % (Auto) 8.0 H Eos % (Auto) Lymph # [place] # 1.2 H Eos # Baso # 0.2 H Seg Neutrophils % 75.8 H Seg Neuts % (Manual) Monocytes % (Manual) Nucleated RBC % Seg Neutrophils # 10.9 H Seg Neutrophils # Man Monocytes # (Manual) PT INR D-Dimer POC ABG pH POC ABG pCO2 POC ABG pO2 Sodium Potassium Chloride Carbon Dioxide BUN Creatinine Glucose POC Glucose 128 H 130 H Lactic Acid Calcium AST ALT C-Reactive Protein Total Protein Albumin Salicylates Miscellaneous Test 12/09/17 12/09/17 12/09/17 03:40 03:40 11:28 WBC 14.6 H RBC Hgb Hct MCV MCH MCHC RDW 15.6 H Plt Count 538 H Lymph % (Auto) 11.0 L [place] % (Auto) 8.8 H Eos % (Auto) Lymph # [place] # 1.3 H Eos # Baso # 0.2 H Seg Neutrophils % 77.1 H Seg Neuts % (Manual) Monocytes % (Manual) Nucleated RBC % Seg Neutrophils # 11.2 H Seg Neutrophils # Man Monocytes # (Manual) PT INR D-Dimer POC ABG pH POC ABG pCO2 POC ABG pO2 Sodium 147 H Potassium Chloride Carbon Dioxide 35 H BUN 30 H Creatinine Glucose 141 H POC Glucose 129 H Lactic Acid Calcium AST ALT C-Reactive Protein Total Protein Albumin Salicylates Miscellaneous Test 12/09/17 12/10/17 12/10/17 17:12 03:40 03:40 WBC 18.4 H RBC Hgb Hct 43.2 H MCV MCH MCHC RDW 16.2 H Plt Count 583 H Lymph % (Auto) 10.8 L [place] % (Auto) 8.2 H Eos % (Auto) Lymph # [place] # 1.5 H Eos # Baso # 0.2 H Seg Neutrophils % 79.0 H Seg Neuts % (Manual) Monocytes % (Manual) Nucleated RBC % Seg Neutrophils # 14.6 H Seg Neutrophils # Man Monocytes # (Manual) PT INR D-Dimer POC ABG pH POC ABG pCO2 POC ABG pO2 Sodium 149 H Potassium Chloride Carbon Dioxide 32 H BUN 29 H Creatinine Glucose 167 H POC Glucose 127 H Lactic Acid Calcium AST ALT C-Reactive Protein Total Protein Albumin Salicylates Miscellaneous Test 12/10/17 05:41 WBC RBC Hgb Hct MCV MCH MCHC RDW Plt Count Lymph % (Auto) [place] % (Auto) Eos % (Auto) Lymph # [place] # Eos # Baso # Seg Neutrophils % Seg Neuts % (Manual) Monocytes % (Manual) Nucleated RBC % Seg Neutrophils # Seg Neutrophils # Man Monocytes # (Manual) PT INR D-Dimer POC ABG pH POC ABG pCO2 POC ABG pO2 Sodium Potassium Chloride Carbon Dioxide BUN Creatinine Glucose POC Glucose 182 H Lactic Acid Calcium AST ALT C-Reactive Protein Total Protein Albumin Salicylates Miscellaneous Test Chest x-ray: image reviewed Allied health notes reviewed: nursing
[2017-12-11] MEDS: DUONEB *Not for PRN Use IH SCH ×3 (00:16→16:08)
[2017-12-11] MEDS: KEPPRA PO SCH ×4 (00:37→18:13)
[2017-12-11 04:24] LABS: Basophils # (Auto) 0.2 K/mm3 (0.0-0.1); Basophils % (Auto) 1.1 % (0.0-1.8); Eosinophils # (Auto) 0.2 K/mm3 (0.0-0.4); Eosinophils % (Auto) 0.8 % (0.0-4.3); Hematocrit 44.2 % (30.3-42.9); Hemoglobin 14.1 gm/dl (10.1-14.3); Lymphocytes # (Auto) 2.7 K/mm3 (1.2-5.4); Lymphocytes % (Auto) 13.8 % (13.4-35.0); Mean Corpuscular HGB Conc 32 % (30-34); Mean Corpuscular Hemoglobin 31 pg (28-32); Mean Corpuscular Volume 96 fl (79-97); Monocytes # (Auto) 1.7 K/mm3 (0.0-0.8); Monocytes % (Auto) 8.3 % (0.0-7.3); Platelet Count 519 K/mm3 (140-440); Red Blood Count 4.61 M/mm3 (3.65-5.03); Red Cell Distribution Width 15.8 % (13.2-15.2)
[2017-12-11 04:32] LABS: Calcium 8.2 mg/dL (8.4-10.2)
[2017-12-11] MEDS: TYLENOL FEEDTUBE PRN ×3 (05:30→20:23)
[2017-12-11] MEDS: HEPARIN SUB-Q SCH ×3 (06:10→21:22)
--- NOTE | 2017-12-11 09:56 | Progress Note ---
Assessment and Plan Acute hypoxemic respiratory failure, on mechanical ventilatory support. Status post cardiac arrest. Likely aspiration pneumonia. Acute encephalopathy with myoclonic jerks at this point, but with evidence of brainstem function. Acute exacerbation of chronic obstructive pulmonary disease. Tobacco use disorder. Obesity. Hypertension. History of alcohol abuse Hypernatremia - continue full MVS acutely - continue to wean oxygen for sats > 90% - stopped versed and watching for tremors/seizures - Encephalopathy w/up ongoing - free water - stopped benadryl for angioedema type tongue swelling (swelling better) - continue GI prophylaxis - continue aspiration precautions / address VAP bundle daily - continue bronchodilators and pulmonary hygiene per RT - continue reglan - continue enteral nutrition - continue GI & VTE prophylaxis - continue empiric AB's and follow C&S - continue other care per attending/ other consultants ....remains critically ill on MVS and at high risk for further deterioration including ..30' CCT istory: Subjective Date of service: 12/11/17 Principal diagnosis: Acute Hypoxemic Resp Failure; S/P Cardiac Arrest; Acute Encephalopathy Interval history: Patient is seen today for: Acute Hypoxemic Resp Failure; S/P Cardiac Arrest; Acute Encephalopathy Seen and examined at bedside; 24hour events reviewed; nursing and respiratory care staff consulted; no adverse overnight events reported to me; reamins on MVS ; AMS persistent; Objective Vital Signs - 12hr 12/10/17 12/10/17 12/10/17 22:00 23:00 23:04 Temperature Pulse Rate 115 H 114 H 114 H Pulse Rate [ Anterior Bilateral Throughout] Pulse Rate [ From Monitor] Respiratory 24 24 24 Rate Respiratory Rate [Anterior Bilateral Throughout] Blood Pressure 130/72 129/76 129/76 O2 Sat by Pulse 93 92 92 Oximetry 12/11/17 12/11/17 12/11/17 00:00 00:19 00:36 Temperature 102.1 F H Pulse Rate 112 H Pulse Rate [ 99 H 101 H Anterior Bilateral Throughout] Pulse Rate [ 109 H From Monitor] Respiratory 20 Rate Respiratory 20 22 Rate [Anterior Bilateral Throughout] Blood Pressure 137/73 O2 Sat by Pulse 92 Oximetry 12/11/17 12/11/17 12/11/17 00:55 01:00 02:00 Temperature Pulse Rate 103 H 110 H 111 H Pulse Rate [ Anterior Bilateral Throughout] Pulse Rate [ From Monitor] Respiratory 22 21 Rate Respiratory Rate [Anterior Bilateral Throughout] Blood Pressure 133/74 133/72 O2 Sat by Pulse 96 97 90 Oximetry 12/11/17 12/11/17 12/11/17 03:00 04:00 04:40 Temperature 101.8 F H Pulse Rate 112 H 111 H 95 H Pulse Rate [ Anterior Bilateral Throughout] Pulse Rate [ 112 H From Monitor] Respiratory 26 H 21 Rate Respiratory Rate [Anterior Bilateral Throughout] Blood Pressure 129/72 130/71 130/71 O2 Sat by Pulse 92 93 93 Oximetry 12/11/17 12/11/17 12/11/17 05:00 06:00 06:15 Temperature 100.7 F H Pulse Rate 112 H 111 H Pulse Rate [ Anterior Bilateral Throughout] Pulse Rate [ From Monitor] Respiratory 22 19 Rate Respiratory Rate [Anterior Bilateral Throughout] Blood Pressure 131/72 120/74 O2 Sat by Pulse 92 92 Oximetry 12/11/17 12/11/17 12/11/17 07:42 07:44 07:50 Temperature Pulse Rate 113 H Pulse Rate [ 112 H 113 H Anterior Bilateral Throughout] Pulse Rate [ From Monitor] Respiratory Rate Respiratory 16 16 Rate [Anterior Bilateral Throughout] Blood Pressure 126/75 O2 Sat by Pulse 91 Oximetry 12/11/17 08:00 Temperature 103.1 F H Pulse Rate Pulse Rate [ Anterior Bilateral Throughout] Pulse Rate [ From Monitor] Respiratory Rate Respiratory Rate [Anterior Bilateral Throughout] Blood Pressure O2 Sat by Pulse Oximetry Constitutional: appears uncomfortable, other (obtunded) Eyes: non-icteric ENT: oropharynx moist Neck: supple, no lymphadenopathy, no JVD, other (no thyromegaly) Effort: mildly labored Ascultation: Bilateral: diminished breath sounds, rhonchi Percussion: Bilateral: not dull Cardiovascular: regular rate and rhythm, other (no rubs or murmurs) Gastrointestinal: hypoactive bowel sounds, soft, non-tender, non-distended, other (no palapble HSM) Integumentary: normal Extremities: no cyanosis, pink and warm, pulses normal, edema Neurologic: pupils equal and round, unable to assess Psychiatric: other (unable to assess) CBC and BMP: 12/11/17 03:58 12/11/17 03:58 ABG, PT/INR, D-dimer: ABG POC ABG pH 7.484 (7.35-7.45) H 12/08/17 04:05 POC ABG pCO2 56.6 (35-45) H 12/08/17 04:05 POC ABG pO2 53 (80-105) L 12/08/17 04:05 POC ABG HCO3 42.5 12/08/17 04:05 POC ABG Total CO2 44 12/08/17 04:05 POC ABG O2 Sat 88 12/08/17 04:05 PT/INR, D-dimer PT 15.3 Sec. (12.2-14.9) H 11/23/17 12:44 INR 1.15 (0.87-1.13) H 11/23/17 12:44 D-Dimer 1977.37 ng/mlDDU (0-234) H 11/24/17 14:44 Abnormal lab findings: Abnormal Labs 11/23/17 11/23/17 11/23/17 12:44 12:44 12:44 WBC 13.0 H RBC Hgb Hct 46.1 H MCV 112 H MCH 33 H MCHC 29 L RDW 18.5 H Plt Count Lymph % (Auto) [place] % (Auto) Eos % (Auto) Lymph # [place] # Eos # Baso # Seg Neutrophils % Seg Neuts % (Manual) 71.0 H Monocytes % (Manual) 8.0 H Nucleated RBC % 6.0 H Seg Neutrophils # Seg Neutrophils # Man 9.2 H Monocytes # (Manual) 1.0 H PT 15.3 H INR 1.15 H D-Dimer POC ABG pH POC ABG pCO2 POC ABG pO2 Sodium Potassium 5.4 H Chloride 85.2 L Carbon Dioxide BUN 19 H Creatinine 1.3 H Glucose 175 H POC Glucose Lactic Acid Calcium AST 310 H ALT 262 H C-Reactive Protein Total Protein 5.7 L Albumin 2.9 L Salicylates Miscellaneous Test 11/23/17 11/23/17 11/23/17 12:44 13:23 15:54 WBC RBC Hgb Hct MCV MCH MCHC RDW Plt Count Lymph % (Auto) [place] % (Auto) Eos % (Auto) Lymph # [place] # Eos # Baso # Seg Neutrophils % Seg Neuts % (Manual) Monocytes % (Manual) Nucleated RBC % Seg Neutrophils # Seg Neutrophils # Man Monocytes # (Manual) PT INR D-Dimer POC ABG pH 7.035 L POC ABG pCO2 99.1 H POC ABG pO2 343 H Sodium Potassium Chloride Carbon Dioxide BUN Creatinine Glucose POC Glucose Lactic Acid 16.10 H* Calcium AST ALT C-Reactive Protein Total Protein Albumin Salicylates < 0.3 L Miscellaneous Test 11/23/17 11/24/17 11/24/17 16:42 04:03 04:03 WBC 16.8 H RBC Hgb 15.7 H Hct 48.9 H MCV 101 H MCH MCHC RDW 16.5 H Plt Count Lymph % (Auto) 5.2 L [place] % (Auto) Eos % (Auto) Lymph # 0.9 L [place] # 0.9 H Eos # Baso # Seg Neutrophils % 89.1 H Seg Neuts % (Manual) Monocytes % (Manual) Nucleated RBC % Seg Neutrophils # 14.9 H Seg Neutrophils # Man Monocytes # (Manual) PT INR D-Dimer POC ABG pH POC ABG pCO2 POC ABG pO2 55 L Sodium Potassium Chloride 96.0 L Carbon Dioxide 33 H D BUN 28 H Creatinine 1.5 H Glucose 108 H POC Glucose Lactic Acid Calcium 7.7 L AST 1091 H ALT 986 H C-Reactive Protein Total Protein 5.0 L Albumin 2.8 L Salicylates Miscellaneous Test 11/24/17 11/24/17 11/24/17 05:55 13:29 13:29 WBC RBC Hgb Hct MCV MCH MCHC RDW Plt Count Lymph % (Auto) [place] % (Auto) Eos % (Auto) Lymph # [place] # Eos # Baso # Seg Neutrophils % Seg Neuts % (Manual) Monocytes % (Manual) Nucleated RBC % Seg Neutrophils # Seg Neutrophils # Man Monocytes # (Manual) PT INR D-Dimer POC ABG pH 7.469 H POC ABG pCO2 52.3 H POC ABG pO2 69 L Sodium Potassium Chloride Carbon Dioxide BUN Creatinine Glucose POC Glucose Lactic Acid 3.20 H* Calcium AST ALT C-Reactive Protein 9.20 H Total Protein Albumin Salicylates Miscellaneous Test 11/24/17 11/24/17 11/25/17 14:44 20:55 01:55 WBC RBC Hgb Hct MCV MCH MCHC RDW Plt Count Lymph % (Auto) [place] % (Auto) Eos % (Auto) Lymph # [place] # Eos # Baso # Seg Neutrophils % Seg Neuts % (Manual) Monocytes % (Manual) Nucleated RBC % Seg Neutrophils # Seg Neutrophils # Man Monocytes # (Manual) PT INR D-Dimer 1977.37 H POC ABG pH 7.471 H POC ABG pCO2 56.2 H POC ABG pO2 Sodium Potassium Chloride Carbon Dioxide BUN Creatinine Glucose POC Glucose Lactic Acid 3.00 H* Calcium AST ALT C-Reactive Protein Total Protein Albumin Salicylates Miscellaneous Test 11/25/17 11/25/17 11/25/17 03:02 03:02 03:02 WBC 16.0 H RBC Hgb Hct MCV 99 H MCH MCHC RDW 16.0 H Plt Count Lymph % (Auto) 11.6 L [place] % (Auto) Eos % (Auto) Lymph # [place] # 1.0 H Eos # Baso # Seg Neutrophils % 81.8 H Seg Neuts % (Manual) Monocytes % (Manual) Nucleated RBC % Seg Neutrophils # 13.1 H Seg Neutrophils # Man Monocytes # (Manual) PT INR D-Dimer POC ABG pH POC ABG pCO2 POC ABG pO2 Sodium 148 H Potassium Chloride Carbon Dioxide 35 H BUN 30 H Creatinine 1.9 H Glucose 106 H POC Glucose Lactic Acid 2.90 H* Calcium 7.0 L AST ALT C-Reactive Protein Total Protein Albumin Salicylates Miscellaneous Test 11/25/17 11/25/17 11/25/17 03:02 03:35 07:15 WBC RBC Hgb Hct MCV MCH MCHC RDW Plt Count Lymph % (Auto) [place] % (Auto) Eos % (Auto) Lymph # [place] # Eos # Baso # Seg Neutrophils % Seg Neuts % (Manual) Monocytes % (Manual) Nucleated RBC % Seg Neutrophils # Seg Neutrophils # Man Monocytes # (Manual) PT INR D-Dimer POC ABG pH 7.494 H POC ABG pCO2 48.1 H POC ABG pO2 Sodium Potassium Chloride Carbon Dioxide BUN Creatinine Glucose POC Glucose Lactic Acid 2.30 H* Calcium AST 300 H ALT 561 H C-Reactive Protein Total Protein 4.5 L Albumin 2.4 L Salicylates Miscellaneous Test 11/26/17 11/26/17 11/26/17 03:26 03:26 03:52 WBC 12.7 H RBC Hgb 14.9 H Hct 45.9 H MCV 98 H MCH MCHC RDW 16.3 H Plt Count 137 L Lymph % (Auto) 10.0 L [place] % (Auto) Eos % (Auto) Lymph # [place] # Eos # Baso # Seg Neutrophils % 82.7 H Seg Neuts % (Manual) Monocytes % (Manual) Nucleated RBC % Seg Neutrophils # 10.5 H Seg Neutrophils # Man Monocytes # (Manual) PT INR D-Dimer POC ABG pH 7.475 H POC ABG pCO2 POC ABG pO2 71 L Sodium 150 H Potassium 3.3 L Chloride Carbon Dioxide BUN 22 H Creatinine 1.7 H Glucose 107 H POC Glucose Lactic Acid Calcium 7.5 L AST ALT C-Reactive Protein Total Protein Albumin Salicylates Miscellaneous Test 11/26/17 11/26/17 11/26/17 11:49 17:53 23:56 WBC RBC Hgb Hct MCV MCH MCHC RDW Plt Count Lymph % (Auto) [place] % (Auto) Eos % (Auto) Lymph # [place] # Eos # Baso # Seg Neutrophils % Seg Neuts % (Manual) Monocytes % (Manual) Nucleated RBC % Seg Neutrophils # Seg Neutrophils # Man Monocytes # (Manual) PT INR D-Dimer POC ABG pH POC ABG pCO2 POC ABG pO2 Sodium Potassium Chloride Carbon Dioxide BUN Creatinine Glucose POC Glucose 109 H 168 H 145 H Lactic Acid Calcium AST ALT C-Reactive Protein Total Protein Albumin Salicylates Miscellaneous Test 11/27/17 11/27/17 11/27/17 04:22 04:22 04:53 WBC 11.7 H RBC Hgb 15.7 H Hct 49.8 H MCV 100 H MCH MCHC RDW 16.4 H Plt Count 105 L Lymph % (Auto) 7.6 L [place] % (Auto) 8.7 H Eos % (Auto) Lymph # 0.9 L [place] # 1.0 H Eos # Baso # Seg Neutrophils % 83.2 H Seg Neuts % (Manual) Monocytes % (Manual) Nucleated RBC % Seg Neutrophils # 9.7 H Seg Neutrophils # Man Monocytes # (Manual) PT INR D-Dimer POC ABG pH POC ABG pCO2 53.1 H POC ABG pO2 70 L Sodium 155 H Potassium Chloride 113.1 H Carbon Dioxide BUN Creatinine 1.5 H Glucose 128 H POC Glucose Lactic Acid Calcium 7.4 L AST ALT C-Reactive Protein Total Protein Albumin Salicylates Miscellaneous Test 11/27/17 11/27/17 11/27/17 05:34 11:27 16:18 WBC RBC Hgb Hct MCV MCH MCHC RDW Plt Count Lymph % (Auto) [place] % (Auto) Eos % (Auto) Lymph # [place] # Eos # Baso # Seg Neutrophils % Seg Neuts % (Manual) Monocytes % (Manual) Nucleated RBC % Seg Neutrophils # Seg Neutrophils # Man Monocytes # (Manual) PT INR D-Dimer POC ABG pH POC ABG pCO2 POC ABG pO2 Sodium Potassium Chloride Carbon Dioxide BUN Creatinine Glucose POC Glucose 120 H 129 H Lactic Acid Calcium AST ALT C-Reactive Protein 13.70 H Total Protein Albumin Salicylates Miscellaneous Test 11/27/17 11/27/17 11/28/17 17:19 23:56 03:17 WBC 14.5 H RBC Hgb 15.2 H Hct 48.3 H MCV 99 H MCH MCHC RDW 16.5 H Plt Count 108 L Lymph % (Auto) 9.7 L [place] % (Auto) Eos % (Auto) Lymph # [place] # 1.0 H Eos # Baso # Seg Neutrophils % 81.0 H Seg Neuts % (Manual) Monocytes % (Manual) Nucleated RBC % Seg Neutrophils # 11.8 H Seg Neutrophils # Man Monocytes # (Manual) PT INR D-Dimer POC ABG pH POC ABG pCO2 POC ABG pO2 Sodium Potassium Chloride Carbon Dioxide BUN Creatinine Glucose POC Glucose 138 H 125 H Lactic Acid Calcium AST ALT C-Reactive Protein Total Protein Albumin Salicylates Miscellaneous Test 11/28/17 11/28/17 11/28/17 03:17 05:34 06:46 WBC RBC Hgb Hct MCV MCH MCHC RDW Plt Count Lymph % (Auto) [place] % (Auto) Eos % (Auto) Lymph # [place] # Eos # Baso # Seg Neutrophils % Seg Neuts % (Manual) Monocytes % (Manual) Nucleated RBC % Seg Neutrophils # Seg Neutrophils # Man Monocytes # (Manual) PT INR D-Dimer POC ABG pH 7.324 L POC ABG pCO2 63.4 H POC ABG pO2 65 L Sodium 150 H Potassium 3.4 L Chloride 107.9 H Carbon Dioxide 31 H BUN 19 H Creatinine 1.3 H Glucose 126 H POC Glucose 132 H Lactic Acid Calcium 7.7 L AST ALT C-Reactive Protein Total Protein Albumin Salicylates Miscellaneous Test 11/28/17 11/28/17 11/28/17 09:23 12:17 17:20 WBC RBC Hgb Hct MCV MCH MCHC RDW Plt Count Lymph % (Auto) [place] % (Auto) Eos % (Auto) Lymph # [place] # Eos # Baso # Seg Neutrophils % Seg Neuts % (Manual) Monocytes % (Manual) Nucleated RBC % Seg Neutrophils # Seg Neutrophils # Man Monocytes # (Manual) PT INR D-Dimer POC ABG pH POC ABG pCO2 POC ABG pO2 Sodium Potassium Chloride Carbon Dioxide BUN Creatinine Glucose POC Glucose 142 H 136 H Lactic Acid Calcium AST ALT C-Reactive Protein Total Protein Albumin Salicylates Miscellaneous Test Flexitest 1 H 11/29/17 11/29/17 11/29/17 00:12 04:36 04:47 WBC 14.1 H RBC 5.32 H Hgb 16.4 H Hct 51.2 H MCV MCH MCHC RDW 15.8 H Plt Count 77 L Lymph % (Auto) 7.6 L [place] % (Auto) Eos % (Auto) Lymph # 1.1 L [place] # 0.9 H Eos # 0.5 H Baso # Seg Neutrophils % 81.5 H Seg Neuts % (Manual) Monocytes % (Manual) Nucleated RBC % Seg Neutrophils # 11.5 H Seg Neutrophils # Man Monocytes # (Manual) PT INR D-Dimer POC ABG pH POC ABG pCO2 POC ABG pO2 61 L Sodium Potassium Chloride Carbon Dioxide BUN Creatinine Glucose POC Glucose 119 H Lactic Acid Calcium AST ALT C-Reactive Protein Total Protein Albumin Salicylates Miscellaneous Test 11/29/17 11/29/17 11/29/17 04:47 05:29 11:48 WBC RBC Hgb Hct MCV MCH MCHC RDW Plt Count Lymph % (Auto) [place] % (Auto) Eos % (Auto) Lymph # [place] # Eos # Baso # Seg Neutrophils % Seg Neuts % (Manual) Monocytes % (Manual) Nucleated RBC % Seg Neutrophils # Seg Neutrophils # Man Monocytes # (Manual) PT INR D-Dimer POC ABG pH POC ABG pCO2 POC ABG pO2 Sodium Potassium Chloride Carbon Dioxide BUN 18 H Creatinine Glucose 119 H POC Glucose 128 H 128 H Lactic Acid Calcium 8.2 L AST ALT C-Reactive Protein Total Protein Albumin Salicylates Miscellaneous Test 11/29/17 11/29/17 11/30/17 17:32 17:39 03:48 WBC 13.5 H RBC Hgb 15.4 H Hct 47.2 H MCV MCH MCHC RDW 16.3 H Plt Count Lymph % (Auto) 10.5 L [place] % (Auto) 7.7 H Eos % (Auto) Lymph # [place] # 1.0 H Eos # 0.5 H Baso # Seg Neutrophils % 76.8 H Seg Neuts % (Manual) Monocytes % (Manual) Nucleated RBC % Seg Neutrophils # 10.4 H Seg Neutrophils # Man Monocytes # (Manual) PT INR D-Dimer POC ABG pH POC ABG pCO2 51.6 H POC ABG pO2 345 H Sodium Potassium Chloride Carbon Dioxide BUN Creatinine Glucose POC Glucose 124 H Lactic Acid Calcium AST ALT C-Reactive Protein Total Protein Albumin Salicylates Miscellaneous Test 11/30/17 11/30/17 11/30/17 03:48 03:52 23:37 WBC RBC Hgb Hct MCV MCH MCHC RDW Plt Count Lymph % (Auto) [place] % (Auto) Eos % (Auto) Lymph # [place] # Eos # Baso # Seg Neutrophils % Seg Neuts % (Manual) Monocytes % (Manual) Nucleated RBC % Seg Neutrophils # Seg Neutrophils # Man Monocytes # (Manual) PT INR D-Dimer POC ABG pH 7.503 H POC ABG pCO2 POC ABG pO2 65 L Sodium Potassium Chloride Carbon Dioxide BUN Creatinine Glucose 121 H POC Glucose 140 H Lactic Acid Calcium 7.6 L AST ALT C-Reactive Protein Total Protein Albumin Salicylates Miscellaneous Test 12/01/17 12/01/17 12/01/17 03:17 05:30 12:37 WBC RBC Hgb Hct MCV MCH MCHC RDW Plt Count Lymph % (Auto) [place] % (Auto) Eos % (Auto) Lymph # [place] # Eos # Baso # Seg Neutrophils % Seg Neuts % (Manual) Monocytes % (Manual) Nucleated RBC % Seg Neutrophils # Seg Neutrophils # Man Monocytes # (Manual) PT INR D-Dimer POC ABG pH POC ABG pCO2 52.7 H POC ABG pO2 64 L Sodium Potassium Chloride Carbon Dioxide BUN Creatinine Glucose POC Glucose 171 H 175 H Lactic Acid Calcium AST ALT C-Reactive Protein Total Protein Albumin Salicylates Miscellaneous Test 12/01/17 12/02/17 12/02/17 17:41 00:01 03:17 WBC RBC Hgb Hct MCV MCH MCHC RDW Plt Count Lymph % (Auto) [place] % (Auto) Eos % (Auto) Lymph # [place] # Eos # Baso # Seg Neutrophils % Seg Neuts % (Manual) Monocytes % (Manual) Nucleated RBC % Seg Neutrophils # Seg Neutrophils # Man Monocytes # (Manual) PT INR D-Dimer POC ABG pH POC ABG pCO2 51.5 H POC ABG pO2 67 L Sodium Potassium Chloride Carbon Dioxide BUN Creatinine Glucose POC Glucose 165 H 184 H Lactic Acid Calcium AST ALT C-Reactive Protein Total Protein Albumin Salicylates Miscellaneous Test 12/02/17 12/02/17 12/02/17 05:54 11:44 18:04 WBC RBC Hgb Hct MCV MCH MCHC RDW Plt Count Lymph % (Auto) [place] % (Auto) Eos % (Auto) Lymph # [place] # Eos # Baso # Seg Neutrophils % Seg Neuts % (Manual) Monocytes % (Manual) Nucleated RBC % Seg Neutrophils # Seg Neutrophils # Man Monocytes # (Manual) PT INR D-Dimer POC ABG pH POC ABG pCO2 POC ABG pO2 Sodium Potassium Chloride Carbon Dioxide BUN Creatinine Glucose POC Glucose 208 H 175 H 146 H Lactic Acid Calcium AST ALT C-Reactive Protein Total Protein Albumin Salicylates Miscellaneous Test 12/03/17 12/03/17 12/03/17 00:16 05:59 12:09 WBC RBC Hgb Hct MCV MCH MCHC RDW Plt Count Lymph % (Auto) [place] % (Auto) Eos % (Auto) Lymph # [place] # Eos # Baso # Seg Neutrophils % Seg Neuts % (Manual) Monocytes % (Manual) Nucleated RBC % Seg Neutrophils # Seg Neutrophils # Man Monocytes # (Manual) PT INR D-Dimer POC ABG pH POC ABG pCO2 53.1 H POC ABG pO2 60 L Sodium Potassium Chloride Carbon Dioxide BUN Creatinine Glucose POC Glucose 135 H 137 H Lactic Acid Calcium AST ALT C-Reactive Protein Total Protein Albumin Salicylates Miscellaneous Test 12/03/17 12/03/17 12/03/17 17:19 20:02 23:30 WBC 13.3 H RBC Hgb 15.1 H Hct 47.0 H MCV MCH MCHC RDW 15.8 H Plt Count Lymph % (Auto) 11.6 L [place] % (Auto) Eos % (Auto) 4.5 H Lymph # [place] # Eos # 0.6 H Baso # Seg Neutrophils % 76.6 H Seg Neuts % (Manual) Monocytes % (Manual) Nucleated RBC % Seg Neutrophils # 10.2 H Seg Neutrophils # Man Monocytes # (Manual) PT INR D-Dimer POC ABG pH POC ABG pCO2 POC ABG pO2 Sodium Potassium Chloride Carbon Dioxide BUN Creatinine Glucose POC Glucose 134 H 118 H Lactic Acid Calcium AST ALT C-Reactive Protein Total Protein Albumin Salicylates Miscellaneous Test 12/04/17 12/04/17 12/04/17 06:07 11:54 17:20 WBC RBC Hgb Hct MCV MCH MCHC RDW Plt Count Lymph % (Auto) [place] % (Auto) Eos % (Auto) Lymph # [place] # Eos # Baso # Seg Neutrophils % Seg Neuts % (Manual) Monocytes % (Manual) Nucleated RBC % Seg Neutrophils # Seg Neutrophils # Man Monocytes # (Manual) PT INR D-Dimer POC ABG pH POC ABG pCO2 POC ABG pO2 Sodium Potassium Chloride Carbon Dioxide BUN Creatinine Glucose POC Glucose 163 H 154 H 143 H Lactic Acid Calcium AST ALT C-Reactive Protein Total Protein Albumin Salicylates Miscellaneous Test 12/04/17 12/05/17 12/05/17 23:51 06:14 11:36 WBC RBC Hgb Hct MCV MCH MCHC RDW Plt Count Lymph % (Auto) [place] % (Auto) Eos % (Auto) Lymph # [place] # Eos # Baso # Seg Neutrophils % Seg Neuts % (Manual) Monocytes % (Manual) Nucleated RBC % Seg Neutrophils # Seg Neutrophils # Man Monocytes # (Manual) PT INR D-Dimer POC ABG pH POC ABG pCO2 POC ABG pO2 Sodium Potassium Chloride Carbon Dioxide BUN Creatinine Glucose POC Glucose 139 H 158 H 173 H Lactic Acid Calcium AST ALT C-Reactive Protein Total Protein Albumin Salicylates Miscellaneous Test 12/05/17 12/06/17 12/06/17 17:45 00:12 06:09 WBC RBC Hgb Hct MCV MCH MCHC RDW Plt Count Lymph % (Auto) [place] % (Auto) Eos % (Auto) Lymph # [place] # Eos # Baso # Seg Neutrophils % Seg Neuts % (Manual) Monocytes % (Manual) Nucleated RBC % Seg Neutrophils # Seg Neutrophils # Man Monocytes # (Manual) PT INR D-Dimer POC ABG pH POC ABG pCO2 POC ABG pO2 Sodium Potassium Chloride Carbon Dioxide BUN Creatinine Glucose POC Glucose 148 H 148 H 205 H Lactic Acid Calcium AST ALT C-Reactive Protein Total Protein Albumin Salicylates Miscellaneous Test 12/06/17 12/06/17 12/07/17 11:58 23:36 05:34 WBC RBC Hgb Hct MCV MCH MCHC RDW Plt Count Lymph % (Auto) [place] % (Auto) Eos % (Auto) Lymph # [place] # Eos # Baso # Seg Neutrophils % Seg Neuts % (Manual) Monocytes % (Manual) Nucleated RBC % Seg Neutrophils # Seg Neutrophils # Man Monocytes # (Manual) PT INR D-Dimer POC ABG pH POC ABG pCO2 POC ABG pO2 Sodium Potassium Chloride Carbon Dioxide BUN Creatinine Glucose POC Glucose 203 H 161 H 193 H Lactic Acid Calcium AST ALT C-Reactive Protein Total Protein Albumin Salicylates Miscellaneous Test 12/07/17 12/07/17 12/07/17 11:43 12:14 16:47 WBC RBC Hgb Hct MCV MCH MCHC RDW Plt Count Lymph % (Auto) [place] % (Auto) Eos % (Auto) Lymph # [place] # Eos # Baso # Seg Neutrophils % Seg Neuts % (Manual) Monocytes % (Manual) Nucleated RBC % Seg Neutrophils # Seg Neutrophils # Man Monocytes # (Manual) PT INR D-Dimer POC ABG pH 7.461 H POC ABG pCO2 58.7 H POC ABG pO2 59 L Sodium Potassium Chloride Carbon Dioxide BUN Creatinine Glucose POC Glucose 176 H 162 H Lactic Acid Calcium AST ALT C-Reactive Protein Total Protein Albumin Salicylates Miscellaneous Test 12/07/17 12/08/17 12/08/17 23:49 04:00 04:05 WBC RBC Hgb Hct MCV MCH MCHC RDW Plt Count Lymph % (Auto) [place] % (Auto) Eos % (Auto) Lymph # [place] # Eos # Baso # Seg Neutrophils % Seg Neuts % (Manual) Monocytes % (Manual) Nucleated RBC % Seg Neutrophils # Seg Neutrophils # Man Monocytes # (Manual) PT INR D-Dimer POC ABG pH 7.484 H POC ABG pCO2 56.6 H POC ABG pO2 53 L Sodium 149 H Potassium 2.8 L* Chloride Carbon Dioxide 37 H BUN 31 H Creatinine Glucose 131 H POC Glucose 135 H Lactic Acid Calcium AST ALT C-Reactive Protein Total Protein Albumin Salicylates Miscellaneous Test 12/08/17 12/08/17 12/08/17 04:41 05:08 23:28 WBC 14.4 H RBC Hgb Hct MCV MCH MCHC RDW 15.8 H Plt Count 518 H Lymph % (Auto) 12.3 L [place] % (Auto) 8.0 H Eos % (Auto) Lymph # [place] # 1.2 H Eos # Baso # 0.2 H Seg Neutrophils % 75.8 H Seg Neuts % (Manual) Monocytes % (Manual) Nucleated RBC % Seg Neutrophils # 10.9 H Seg Neutrophils # Man Monocytes # (Manual) PT INR D-Dimer POC ABG pH POC ABG pCO2 POC ABG pO2 Sodium Potassium Chloride Carbon Dioxide BUN Creatinine Glucose POC Glucose 128 H 130 H Lactic Acid Calcium AST ALT C-Reactive Protein Total Protein Albumin Salicylates Miscellaneous Test 12/09/17 12/09/17 12/09/17 03:40 03:40 11:28 WBC 14.6 H RBC Hgb Hct MCV MCH MCHC RDW 15.6 H Plt Count 538 H Lymph % (Auto) 11.0 L [place] % (Auto) 8.8 H Eos % (Auto) Lymph # [place] # 1.3 H Eos # Baso # 0.2 H Seg Neutrophils % 77.1 H Seg Neuts % (Manual) Monocytes % (Manual) Nucleated RBC % Seg Neutrophils # 11.2 H Seg Neutrophils # Man Monocytes # (Manual) PT INR D-Dimer POC ABG pH POC ABG pCO2 POC ABG pO2 Sodium 147 H Potassium Chloride Carbon Dioxide 35 H BUN 30 H Creatinine Glucose 141 H POC Glucose 129 H Lactic Acid Calcium AST ALT C-Reactive Protein Total Protein Albumin Salicylates Miscellaneous Test 12/09/17 12/10/17 12/10/17 17:12 03:40 03:40 WBC 18.4 H RBC Hgb Hct 43.2 H MCV MCH MCHC RDW 16.2 H Plt Count 583 H Lymph % (Auto) 10.8 L [place] % (Auto) 8.2 H Eos % (Auto) Lymph # [place] # 1.5 H Eos # Baso # 0.2 H Seg Neutrophils % 79.0 H Seg Neuts % (Manual) Monocytes % (Manual) Nucleated RBC % Seg Neutrophils # 14.6 H Seg Neutrophils # Man Monocytes # (Manual) PT INR D-Dimer POC ABG pH POC ABG pCO2 POC ABG pO2 Sodium 149 H Potassium Chloride Carbon Dioxide 32 H BUN 29 H Creatinine Glucose 167 H POC Glucose 127 H Lactic Acid Calcium AST ALT C-Reactive Protein Total Protein Albumin Salicylates Miscellaneous Test 12/10/17 12/10/17 12/11/17 05:41 23:59 03:58 WBC 19.8 H RBC Hgb Hct 44.2 H MCV MCH MCHC RDW 15.8 H Plt Count 519 H Lymph % (Auto) [place] % (Auto) 8.3 H Eos % (Auto) Lymph # [place] # 1.7 H Eos # Baso # 0.2 H Seg Neutrophils % 76.0 H Seg Neuts % (Manual) Monocytes % (Manual) Nucleated RBC % Seg Neutrophils # 15.1 H Seg Neutrophils # Man Monocytes # (Manual) PT INR D-Dimer POC ABG pH POC ABG pCO2 POC ABG pO2 Sodium Potassium Chloride Carbon Dioxide BUN Creatinine Glucose POC Glucose 182 H 184 H Lactic Acid Calcium AST ALT C-Reactive Protein Total Protein Albumin Salicylates Miscellaneous Test 12/11/17 12/11/17 03:58 06:08 WBC RBC Hgb Hct MCV MCH MCHC RDW Plt Count Lymph % (Auto) [place] % (Auto) Eos % (Auto) Lymph # [place] # Eos # Baso # Seg Neutrophils % Seg Neuts % (Manual) Monocytes % (Manual) Nucleated RBC % Seg Neutrophils # Seg Neutrophils # Man Monocytes # (Manual) PT INR D-Dimer POC ABG pH POC ABG pCO2 POC ABG pO2 Sodium 149 H Potassium 3.3 L Chloride Carbon Dioxide 34 H BUN 30 H Creatinine 1.4 H Glucose 133 H POC Glucose 139 H Lactic Acid Calcium 8.2 L AST ALT C-Reactive Protein Total Protein Albumin Salicylates Miscellaneous Test Allied health notes reviewed: nursing
[2017-12-11] MEDS ORDERED: K-DUR PO ONE ×2 (10:23→18:45)
--- NOTE | 2017-12-11 10:23 | Progress Note ---
Assessment and Plan Assessment and plan: S/p cardiopulmonary arrest. Etiology likely secondary to respiratory arrest. - Anoxic encephalopathy; EEG showed no cortical activity - Neurology following Anoxic brain injury. CT and MRI suggest anoxic brain injury. No pupillary reflex. COPD exacerbation. Continue bronchodilators. Sepsis. ID following and previously on IV antibiotics. Completed zosyn 10 days and tamiflu 5 days Cont. to have fevers but Etiology most likely central fever +/- influenza +/- pneumonia. Hypokalemia. Replete K Possible complex partial seizures with secondary generalization. Continue Keppra and Ativan as needed Acute hypercapneic resp failure. Continue mechanical ventilation per pulmonary TAMARA - Resolved Disposition. Family wishes to continue all efforts for survival. She is still full code. They are interested in a second opinion at [place]. History Interval history: This unfortunate 56 year old female who was found pulseless, in asystole on and resuscitated, remains with no neurological function at this time. CT confirms severe anoxic damage from 11/26/17. EEG reveals no cortical activity. She is off all sedation. Patient fits criteria for brain , cortical. Brain stem has function only demonstrated by spontaneous respiration off the ventilator. Hospitalist Physical - Constitutional Vitals: Temp Pulse Resp BP Pulse Ox 103.1 F H 112 H 18 122/69 92 12/11/17 08:00 12/11/17 09:00 12/11/17 09:00 12/11/17 09:00 12/11/17 09:00 General appearance: Present: other (on mech vent, ) - EENT Eyes: Present: PERRL, EOM intact ENT: hearing intact, clear oral mucosa, dentition normal - Neck Neck: Present: supple, normal ROM - Respiratory Respiratory effort: normal Respiratory: bilateral: CTA - Cardiovascular Rhythm: regular Heart Sounds: Present: S1 & S2. Absent: gallop, rub - Extremities Extremities: no ischemia, No edema, Full ROM - Abdominal General gastrointestinal: soft, non-tender, non-distended, normal bowel sounds - Integumentary Integumentary: Present: clear, warm, dry - Neurologic Neurologic: CNII-XII intact, moves all extremities Results - Labs CBC & Chem 7: 12/11/17 03:58 12/11/17 03:58 Labs: Laboratory Last Values WBC 19.8 K/mm3 (4.5-11.0) H 12/11/17 03:58 RBC 4.61 M/mm3 (3.65-5.03) 12/11/17 03:58 Hgb 14.1 gm/dl (10.1-14.3) 12/11/17 03:58 Hct 44.2 % (30.3-42.9) H 12/11/17 03:58 MCV 96 fl (79-97) 12/11/17 03:58 MCH 31 pg (28-32) 12/11/17 03:58 MCHC 32 % (30-34) 12/11/17 03:58 RDW 15.8 % (13.2-15.2) H 12/11/17 03:58 Plt Count 519 K/mm3 (140-440) H 12/11/17 03:58 Lymph % (Auto) 13.8 % (13.4-35.0) 12/11/17 03:58 [place] % (Auto) 8.3 % (0.0-7.3) H 12/11/17 03:58 Eos % (Auto) 0.8 % (0.0-4.3) 12/11/17 03:58 Baso % (Auto) 1.1 % (0.0-1.8) 12/11/17 03:58 Lymph # 2.7 K/mm3 (1.2-5.4) 12/11/17 03:58 [place]uming # 1.7 K/mm3 (0.0-0.8) H 12/11/17 03:58 Eos # 0.2 K/mm3 (0.0-0.4) 12/11/17 03:58 Baso # 0.2 K/mm3 (0.0-0.1) H 12/11/17 03:58 Add Manual Diff Complete 11/23/17 12:44 Total Counted 100 11/23/17 12:44 Seg Neutrophils % 76.0 % (40.0-70.0) H 12/11/17 03:58 Seg Neuts % (Manual) 71.0 % (40.0-70.0) H 11/23/17 12:44 Band Neutrophils % 3.0 % 11/23/17 12:44 Lymphocytes % (Manual) 18.0 % (13.4-35.0) 11/23/17 12:44 Reactive Lymphs % (Man) 0 % 11/23/17 12:44 Monocytes % (Manual) 8.0 % (0.0-7.3) H 11/23/17 12:44 Eosinophils % (Manual) 0 % (0.0-4.3) 11/23/17 12:44 Basophils % (Manual) 0 % (0.0-1.8) 11/23/17 12:44 Metamyelocytes % 0 % 11/23/17 12:44 Myelocytes % 0 % 11/23/17 12:44 Promyelocytes % 0 % 11/23/17 12:44 Blast Cells % 0 % 11/23/17 12:44 Nucleated RBC % 6.0 % (0.0-0.9) H 11/23/17 12:44 Seg Neutrophils # 15.1 K/mm3 (1.8-7.7) H 12/11/17 03:58 Seg Neutrophils # Man 9.2 K/mm3 (1.8-7.7) H 11/23/17 12:44 Band Neutrophils # 0.4 K/mm3 11/23/17 12:44 Lymphocytes # (Manual) 2.3 K/mm3 (1.2-5.4) 11/23/17 12:44 Abs React Lymphs (Man) 0.0 K/mm3 11/23/17 12:44 Monocytes # (Manual) 1.0 K/mm3 (0.0-0.8) H 11/23/17 12:44 Eosinophils # (Manual) 0.0 K/mm3 (0.0-0.4) 11/23/17 12:44 Basophils # (Manual) 0.0 K/mm3 (0.0-0.1) 11/23/17 12:44 Metamyelocytes # 0.0 K/mm3 11/23/17 12:44 Myelocytes # 0.0 K/mm3 11/23/17 12:44 Promyelocytes # 0.0 K/mm3 11/23/17 12:44 Blast Cells # 0.0 K/mm3 11/23/17 12:44 WBC Morphology Not Reportable 11/23/17 12:44 Hypersegmented Neuts Not Reportable 11/23/17 12:44 Hyposegmented Neuts Not Reportable 11/23/17 12:44 Hypogranular Neuts Not Reportable 11/23/17 12:44 Smudge Cells Not Reportable 11/23/17 12:44 Toxic Granulation Not Reportable 11/23/17 12:44 Toxic Vacuolation Not Reportable 11/23/17 12:44 Dohle Bodies Not Reportable 11/23/17 12:44 Pelger-Huet Anomaly Not Reportable 11/23/17 12:44 Erika Rods Not Reportable 11/23/17 12:44 Platelet Estimate Consistent w auto 11/23/17 12:44 Clumped Platelets Not Reportable 11/23/17 12:44 Plt Clumps, EDTA Not Reportable 11/23/17 12:44 Large Platelets Not Reportable 11/23/17 12:44 Giant Platelets Not Reportable 11/23/17 12:44 Platelet Satelliting Not Reportable 11/23/17 12:44 Plt Morphology Comment Not Reportable 11/23/17 12:44 RBC Morphology Not Reportable 11/23/17 12:44 Dimorphic RBCs Not Reportable 11/23/17 12:44 Polychromasia Rare 11/23/17 12:44 Hypochromasia Not Reportable 11/23/17 12:44 Poikilocytosis Not Reportable 11/23/17 12:44 Anisocytosis 1+ 11/23/17 12:44 Microcytosis Not Reportable 11/23/17 12:44 Macrocytosis 1+ 11/23/17 12:44 Spherocytes Not Reportable 11/23/17 12:44 Pappenheimer Bodies Not Reportable 11/23/17 12:44 Sickle Cells Not Reportable 11/23/17 12:44 Target Cells Not Reportable 11/23/17 12:44 Tear Drop Cells Not Reportable 11/23/17 12:44 Ovalocytes Not Reportable 11/23/17 12:44 Helmet Cells Not Reportable 11/23/17 12:44 [place] Bodies Not Reportable 11/23/17 12:44 [place] Rings Not Reportable 11/23/17 12:44 Valentino Cells Not Reportable 11/23/17 12:44 Bite Cells Not Reportable 11/23/17 12:44 Crenated Cell Not Reportable 11/23/17 12:44 Elliptocytes Not Reportable 11/23/17 12:44 Acanthocytes (Spur) Not Reportable 11/23/17 12:44 Rouleaux Not Reportable 11/23/17 12:44 Hemoglobin C Crystals Not Reportable 11/23/17 12:44 Schistocytes Not Reportable 11/23/17 12:44 Malaria parasites Not Reportable 11/23/17 12:44 Brett Bodies Not Reportable 11/23/17 12:44 Hem Pathologist Commnt No 11/23/17 12:44 PT 15.3 Sec. (12.2-14.9) H 11/23/17 12:44 INR 1.15 (0.87-1.13) H 11/23/17 12:44 APTT 33.9 Sec. (24.2-36.6) 11/23/17 12:44 D-Dimer 1977.37 ng/mlDDU (0-234) H 11/24/17 14:44 POC ABG pH 7.484 (7.35-7.45) H 12/08/17 04:05 POC ABG pCO2 56.6 (35-45) H 12/08/17 04:05 POC ABG pO2 53 (80-105) L 12/08/17 04:05 POC ABG HCO3 42.5 12/08/17 04:05 POC ABG Total CO2 44 12/08/17 04:05 POC ABG O2 Sat 88 12/08/17 04:05 POC ABG Base Excess 19 12/08/17 04:05 FiO2 50 % 12/08/17 04:05 Sodium 149 mmol/L (137-145) H 12/11/17 03:58 Potassium 3.3 mmol/L (3.6-5.0) L 12/11/17 03:58 Chloride 102.8 mmol/L (98-107) 12/11/17 03:58 Carbon Dioxide 34 mmol/L (22-30) H 12/11/17 03:58 Anion Gap 16 mmol/L 12/11/17 03:58 BUN 30 mg/dL (7-17) H 12/11/17 03:58 Creatinine 1.4 mg/dL (0.7-1.2) H 12/11/17 03:58 Estimated GFR 38 ml/min 12/11/17 03:58 BUN/Creatinine Ratio 21 % 12/11/17 03:58 Glucose 133 mg/dL (65-100) H 12/11/17 03:58 POC Glucose 139 (70-105) H 12/11/17 06:08 Lactic Acid 2.00 mmol/L (0.7-2.0) 11/25/17 10:25 Calcium 8.2 mg/dL (8.4-10.2) L 12/11/17 03:58 Magnesium 1.90 mg/dL (1.7-2.3) 11/28/17 03:17 Total Bilirubin 0.60 mg/dL (0.1-1.2) 11/25/17 03:02 Direct Bilirubin 0.2 mg/dL (0-0.2) 11/25/17 03:02 Indirect Bilirubin 0.4 mg/dL 11/25/17 03:02 AST 300 units/L (5-40) H 11/25/17 03:02 ALT 561 units/L (7-56) H 11/25/17 03:02 Alkaline Phosphatase 54 units/L (35-129) 11/25/17 03:02 Troponin T < 0.010 ng/mL (0.00-0.029) 11/23/17 12:44 C-Reactive Protein 13.70 mg/dL (0.00-1.30) H 11/27/17 16:18 Total Protein 4.5 g/dL (6.3-8.2) L 11/25/17 03:02 Albumin 2.4 g/dL (3.9-5) L 11/25/17 03:02 Albumin/Globulin Ratio 1.1 % 11/25/17 03:02 Urine Color Yellow (Yellow) 11/23/17 13:39 Urine Turbidity Clear (Clear) 11/23/17 13:39 Urine pH 5.0 (5.0-7.0) 11/23/17 13:39 Ur Specific [place] 1.020 (1.003-1.030) 11/23/17 13:39 Urine Protein 30 mg/dl mg/dL (Negative) 11/23/17 13:39 Urine Glucose (UA) Neg mg/dL (Negative) 11/23/17 13:39 Urine Ketones Neg mg/dL (Negative) 11/23/17 13:39 Urine Blood Neg (Negative) 11/23/17 13:39 Urine Nitrite Neg (Negative) 11/23/17 13:39 Urine Bilirubin Neg (Negative) 11/23/17 13:39 Urine Urobilinogen 2.0 mg/dL (<2.0) 11/23/17 13:39 Ur Leukocyte Esterase Neg (Negative) 11/23/17 13:39 Urine WBC (Auto) 5.0 /HPF (0.0-6.0) 11/23/17 13:39 Urine RBC (Auto) 1.0 /HPF (0.0-6.0) 11/23/17 13:39 U Epithel Cells (Auto) 1.0 /HPF (0-13.0) 11/23/17 13:39 Urine Bacteria (Auto) 1+ /HPF (Negative) 11/23/17 13:39 Hyaline Casts 11 /LPF 11/23/17 13:39 Urine Mucus 2+ /HPF 11/23/17 13:39 Salicylates < 0.3 mg/dL (2.8-20.0) L 11/23/17 15:54 Urine Opiates Screen Presumptive positive 11/23/17 13:39 Urine Methadone Screen Presumptive negative 11/23/17 13:39 Acetaminophen < 15.0 ug/mL (10.0-30.0) 11/23/17 15:54 Ur Barbiturates Screen Presumptive negative 11/23/17 13:39 Levetiracetam 30.0 mcg/mL 11/25/17 17:30 Ur Phencyclidine Scrn Presumptive negative 11/23/17 13:39 Ur Amphetamines Screen Presumptive negative 11/23/17 13:39 U Benzodiazepines Scrn Presumptive positive 11/23/17 13:39 Urine Cocaine Screen Presumptive negative 11/23/17 13:39 U Marijuana (THC) Screen Presumptive negative 11/23/17 13:39 Drugs of Abuse Note Disclamer 11/23/17 13:39 Miscellaneous Test Flexitest 1 H 11/28/17 09:23
[2017-12-11] MEDS: PEPCID PO SCH ×2 (10:32→21:22)
[2017-12-11] MEDS ORDERED: ADRENALIN ONE (11:15)
[2017-12-11] MEDS ORDERED: ATROPINE 0.1% (CARDIAC) ONE (11:15)
[2017-12-11] MEDS ORDERED: D50W (25GM) Syringe IV ONE (11:15)
[2017-12-11] MEDS ORDERED: NACL 0.9% 1000 ML 1,000 ML ONE (13:41)
[2017-12-11] MEDS ORDERED: NACL 0.9% 500 ML 500 ML IV ONE (13:46)
[2017-12-11] MEDS ORDERED: NACL 0.9% 1000 ML 1,000 ML IV SCH (14:00)
[2017-12-11] MEDS ORDERED: VANCOMYCIN/NS 1 GM/250 ML 1 GM/250 ML BAG IV SCH (14:00)
[2017-12-11] MEDS ORDERED: LEVOPHED DRIP 4 MG/NS 250 ML 4 MG/250 ML BAG IV SCH (14:00)
[2017-12-11] MEDS ORDERED: VANCOMYCIN 1,500 MG in NACL 0.9% 500 ML 500 ML IV ONE (14:30)
[2017-12-11] MEDS ORDERED: Vasostrict 20 UNIT in NACL 0.9% 100 ML IV SCH (18:00)
[2017-12-11] MEDS: ZOSYN/NS 4.5GM/100ML 4.5 GM/100 ML VIAL IV SCH ×2 (18:13→21:22)
[2017-12-11] MEDS: NEO-SYNEPHRINE 100 MG in NACL 0.9% 90 ML IV SCH ×2 (19:15→22:23)
[2017-12-11] MEDS ORDERED: LEVOPHED 8 MG in NACL 0.9% 250ML 242 ML IV SCH (20:00)
--- NOTE | 2017-12-12 | Event Note ---
Date: 12/11/17 CODE EVELIN called Initial rhythm asystole, patient was given epinephrine 2 She continues to be hypotensive on 3 pressors, dopamine was added Blood sugar of 25, D50 given, IV fluid bolus given There was ROSC She subsequently coded 3 more times Please refer to code sheet for details Time of 3138 Family made aware
[2017-12-12 00:15] VITALS: BP 52/28
[2017-12-12] MEDS: DUONEB *Not for PRN Use IH SCH (07:10)
--- NOTE | 2017-12-12 08:45 | Discharge Summary ---
Providers - Providers Date of Admission: 11/23/17 14:51 Date of discharge: 12/12/17 Attending physician: HARVEY BERNAL 11/23/17 12:36 Consult to Dietitian/Nutrition [CONS] Routine Physician Instructions: Reason For Exam: Reason for Consult: Poor oral intake 11/23/17 15:24 Consult to Dietitian/Nutrition [CONS] Routine Physician Instructions: Reason For Exam: Reason for Consult: Write/Manage Tube Feeding 11/23/17 15:26 Consult to Physician [CONS] Routine Consulting Provider: MARTHA MESSER Reason For Exam: Cardiac arrest Ac resp failure Place consult to:: CC CLOTH COLORS EXAMINER Notified:: Y If yes, spoke with:: DR CHAUDHRY Time called:: 15:30 11/23/17 15:35 Consult to Physician [CONS] Routine Consulting Provider: EBENEZER OTOOLE Reason For Exam: Cardiac arrest Place consult to:: NEURO Notified:: Y Was contact made?: Yes If yes, spoke with:: MARIO ALBERTO Cerrato Time called:: 15:35 11/25/17 11:46 Consult to Physician [CONS] Routine Consulting Provider: TAMI ALMAGUER Reason For Exam: ARF Place consult to:: Dr. Almaguer Notified:: yes 11/27/17 13:01 Consult to Physician [CONS] Routine Consulting Provider: TAYLOR MUKHERJEE Reason For Exam: fevers Place consult to:: Dr. Fletcher Notified:: yes 12/02/17 15:00 Midline [Consult to PICC Line RN] [CONS] Stat Reason For Exam: please place midline today Type Line:: Midline Primary care physician: A AUXILIARY Hospitalization Reason for admission: cp arrest Condition: Critical Hospital course: 56 years old female with history of COPD and alcohol abuse; admitted on 11/23/17 after being found unresponsive for an unknown period of time at home. EMS found her to be cold, pulseless and in asystole. EMS were unable to intubate her but eventually she got combitube. They had difficulty getting an IV established until just prior to arriving at the ER and at that time she got 1 dose of epinephrine though was still pulseless and unresponsive in the ER with emesis filling the Combitube. Pupils were stated to be fixed and dilated with no withdrawal to pain. In the ED, her temperature was 91, heart rate 100, respiration 20, O2 sat 95, blood pressure 206/87. She then develop a fever of 102.4. Initial white count was 13. Hemoglobin 13.4. Platelets 279. Creatinine 1.3. Lactate 16. CRP 9.2. Urinalysis was negative. Pt was then intubated. She was given 1 dose of epinephrine and 1 of sodium bicarbonate during ACLS protocol. Initial chest x-ray was negative. Pt. was seen by ID, pulmonary,nephrology and neurology in consultation. Pt. was noted to have MSOF. Pt remained on [facility] ventilation in ICU. She developed myoclonus after admission to ICU which seemed to be under control with Keppra and oxcarbazepine. CT from 11/26/17 revealed cerebral edema with some sparing of right frontal areas. There is ischemic change in bilateral basal ganglia, cerebellum. Consistent with anoxic encephalopathy. Pt. was noted to have Sepsis with Etiology most likely central fever +/- influenza +/- pneumonia. She completed zosyn 10 days and tamiflu 5 days. Given overall poor prognosis, family initially considered hospice but later changed decision and wished to continue all efforts for survival. She was full code. They were interested in a second opinion at [place]. Unfortunately, on 12/11 pt had multiple code blue/ asystolic episodes with eventual pronouncement at 2355. Disposition: DC-20 Exam - Constitutional Vitals: Temp Pulse Resp BP Pulse Ox 101.7 F H 55 L 16 52/28 88 12/11/17 20:00 12/11/17 22:01 12/11/17 22:01 12/11/17 22:01 12/11/17 22:01 Plan Follow up with: PRIMARY MD ARMIDA [Primary Care Provider] - 3-5 Days
--- NOTE | 2017-12-12 08:48 | Death Summary ---
Summary - Providers Date of service: 12/12/17 Consults: 11/23/17 12:36 Consult to Dietitian/Nutrition [CONS] Routine Physician Instructions: Reason For Exam: Reason for Consult: Poor oral intake 11/23/17 15:24 Consult to Dietitian/Nutrition [CONS] Routine Physician Instructions: Reason For Exam: Reason for Consult: Write/Manage Tube Feeding 11/23/17 15:26 Consult to Physician [CONS] Routine Consulting Provider: MARTHA MESSER Reason For Exam: Cardiac arrest Ac resp failure Place consult to:: CC UX DEVELOPER Notified:: Y If yes, spoke with:: DR CHAUDHRY Time called:: 15:30 11/23/17 15:35 Consult to Physician [CONS] Routine Consulting Provider: EBENEZER OTOOLE Reason For Exam: Cardiac arrest Place consult to:: NEURO Notified:: Y Was contact made?: Yes If yes, spoke with:: MARIO ALBERTO Cerrato Time called:: 15:35 11/25/17 11:46 Consult to Physician [CONS] Routine Consulting Provider: TAMI ALMAGUER Reason For Exam: ARF Place consult to:: Dr. Almaguer Notified:: yes 11/27/17 13:01 Consult to Physician [CONS] Routine Consulting Provider: TAYLOR MUKHERJEE Reason For Exam: fevers Place consult to:: Dr. Fletcher Notified:: yes 12/02/17 15:00 Midline [Consult to PICC Line RN] [CONS] Stat Reason For Exam: please place midline today Type Line:: Midline Attending: HARVEY BERNAL - summary Date of admission: 11/23/17 14:51 Date of : 12/11/17 Reason for admission: cp arrest Disposition: 56 years old female with history of COPD and alcohol abuse; admitted on 11/23/17 after being found unresponsive for an unknown period of time at home. EMS found her to be cold, pulseless and in asystole. EMS were unable to intubate her but eventually she got combitube. They had difficulty getting an IV established until just prior to arriving at the ER and at that time she got 1 dose of epinephrine though was still pulseless and unresponsive in the ER with emesis filling the Combitube. Pupils were stated to be fixed and dilated with no withdrawal to pain. In the ED, her temperature was 91, heart rate 100, respiration 20, O2 sat 95, blood pressure 206/87. She then develop a fever of 102.4. Initial white count was 13. Hemoglobin 13.4. Platelets 279. Creatinine 1.3. Lactate 16. CRP 9.2. Urinalysis was negative. Pt was then intubated. She was given 1 dose of epinephrine and 1 of sodium bicarbonate during ACLS protocol. Initial chest x-ray was negative. Pt. was seen by ID, pulmonary,nephrology and neurology in consultation. Pt. was noted to have MSOF. Pt [facility]. She developed myoclonus after admission to ICU which seemed to be under control with Keppra and oxcarbazepine. CT from 11/26/17 revealed cerebral edema with some sparing of right frontal areas. There is ischemic change in bilateral basal ganglia, cerebellum. Consistent with anoxic encephalopathy. Pt. was noted to have Sepsis with Etiology most likely central fever +/- influenza +/- pneumonia. She completed zosyn 10 days and tamiflu 5 days. Given overall poor prognosis, family initially considered hospice but later changed decision and wished to continue all efforts for survival. She was full code. They were interested in a second opinion at [place]. Unfortunately, on 12/11 pt had multiple code blue/ asystolic episodes with eventual pronouncement at 0418. - Final diagnosis (1) Septic shock Note: Final diagnosis: (2) Anoxic encephalopathy Note: Final diagnosis: (3) Cardiac arrest Note: Final diagnosis: (4) Elevated lactic acid level Note: Final diagnosis: (5) Respiratory failure Qualifiers: Chronicity: acute Respiratory failure complication: unspecified whether with hypoxia or hypercapnia Qualified Code(s): J96.00 - Acute respiratory failure, unspecified whether with hypoxia or hypercapnia Note: Final diagnosis: (6) Transaminitis Note: Final diagnosis:
--- NOTE | 2017-12-12 09:22 | XRay Report ---
FINAL REPORT EXAM: XR CHEST 1V AP HISTORY: aspiration TECHNIQUE: Frontal chest x-ray. PRIORS: Chest x-ray November 29, 2017. FINDINGS: Cardiac silhouette is within normal limits. Aortic calcifications. Right basilar ill-defined opacity is resolved compared to prior. Less notable ill-defined opacities at the left lung base. No pneumothorax. No obvious right effusion. Left costophrenic angles not completely imaged. There are no suspicious osseous lesions. Endotracheal tube is approximately 4-5 cm above the barbara. Satisfactory. Enteric tube extends beyond the margins of the film into the stomach. IMPRESSION: Left costophrenic angles not completely imaged. Resolved right basilar infiltrate. Decreased left glass lower infiltrate.
[2017-12-12] MEDS ORDERED: VANCOMYCIN/0.45 NS 1 GM/250 ML 1 GM/250 ML BAG IV SCH (15:00)
== END 2017-12-12 02:05 | DRG 870 ==
LOC: EDBD → ED 12:25 → CC1 14:51
PROVIDERS: ADMIT Internal Medicine; ATTEND Hospitalist
PROC: 4A033R1 Measurement of Arterial Saturation, Peripheral, Percutaneous Approach (ICD-10-PCS; principal; 2017-11-23)
PROC: 5A1955Z Respiratory Ventilation, Greater than 96 Consecutive Hours (ICD-10-PCS; 2017-11-23)
PROC: 0BH17EZ Insertion of Endotracheal Airway into Trachea, Via Natural or Artificial Opening (ICD-10-PCS; 2017-11-23)
DX: A41.9 Sepsis, unspecified organism (principal); R65.21 Severe sepsis with septic shock; J96.01 Acute respiratory failure with hypoxia; J96.02 Acute respiratory failure with hypercapnia; J69.0 Pneumonitis due to inhalation of food and vomit; G93.1 Anoxic brain damage, not elsewhere classified; J44.0 Chronic obstructive pulmonary disease with (acute) lower respiratory infection; N17.9 Acute kidney failure, unspecified; E87.0 Hyperosmolality and hypernatremia; J44.1 Chronic obstructive pulmonary disease with (acute) exacerbation; I46.9 Cardiac arrest, cause unspecified; R74.0 Nonspecific elevation of levels of transaminase and lactic acid dehydrogenase [LDH]; I10 Essential (primary) hypertension; E11.9 Type 2 diabetes mellitus without complications; F17.200 Nicotine dependence, unspecified, uncomplicated; E87.5 Hyperkalemia; G25.3 Myoclonus; F10.10 Alcohol abuse, uncomplicated; E66.9 Obesity, unspecified; Z68.25 Body mass index [BMI] 25.0-25.9, adult; Z82.49 Family history of ischemic heart disease and other diseases of the circulatory system
CPT/HCPCS: 36415; 36600; 70450; 70551; 71045; 74018; 76857; 80048; 80053; 80074; 80177; 80307; 80320; 81001; 82140; 82803; 82962; 83735; 84484; 85007; 85025; 85379; 85610; 85730; 86140; 87040; 87070; 87086; 87205; 93005; 93010; 93970; 94002; 94003; 94640; 95819; 96361; 96365; 96372; 96375; 99291; G0480; J0171; J0461; J0610; J1170; J1200; J1644; J1953; J2060; J2250; J2370; J2543; J2704; J2765; J3370; J3480; J7030; J7040; J7042; J7050; J7070